=== PATIENT | male | born 1985 | race American Indian/Alaskan Native ===

== ENCOUNTER 2016-09-10 14:45 | Inpatient (IN) | payer MEDICAID ==
[2016-09-10] MEDS ORDERED: D5NS 0.2% 1,000 ML IV ONE (15:27)
[2016-09-10] MEDS ORDERED: ZOFRAN IV ONE (22:48)
[2016-09-10] MEDS ORDERED: TORADOL IV ONE (22:48)
[2016-09-10] MEDS ORDERED: DILAUDID IV ONE ×2 (22:48→23:35)
[2016-09-10] MEDS ORDERED: BENADRYL PO ONE (22:48)
--- NOTE | 2016-09-10 22:49 | Emergency Department Report ---
ED General Adult HPI - General Chief complaint: Sickle Cell Crisis Stated complaint: SICKLE CELL CRISIS Time Seen by Provider: 09/10/16 22:40 Source: patient, RN notes reviewed Mode of arrival: Ambulatory Limitations: No Limitations - History of Present Illness Initial comments: This is a 31-year-old male. I have evaluated him in the past. Has a past medical history of sickle cell disease, cardiomyopathy, ejection fraction of 45- 50%. Patient presents to the ER complaining of sickle cell pain. Pain is in his back , arms, and bilateral chest wall. Also in his anterior thighs. It is achy and sharp. There is no severe chest pain or shortness of breath. No cough. No mucous production. No testicular pain. No abdominal pain. No irritative or obstructive urinary symptoms. Reports home medications are not helping. Patient reports this feels somewhat to prior episodes of sickle cell pain, only more intense. -: Gradual Location: back, left, right, upper extremity, lower extremity Quality: aching Consistency: constant Improves with: medication, rest Worsens with: movement Associated Symptoms: loss of appetite, malaise, weakness - Related Data Home Medications Medication Instructions Recorded Confirmed Last Taken Folic Acid [Folvite] 1 mg PO QDAY 03/24/15 03/27/16 03/27/16 Morphine ER [Ms Contin ER] 30 mg PO Q12H 03/24/15 03/27/16 03/27/16 Previous Rx's Medication Instructions Recorded Last Taken Type oxyCODONE [Roxicodone TAB] 10 mg PO Q6HR PRN #30 tablet 03/30/15 2 Days Ago Rx Ketorolac [Toradol] 10 mg PO Q6H PRN #20 tablet 07/01/16 Unknown Rx oxyCODONE [Roxicodone] 5 mg PO Q6HR PRN #15 tablet 07/01/16 Unknown Rx Allergies Allergy/AdvReac Type Severity Reaction Status Date / Time ceftriaxone sodium Allergy Unknown Verified 10/25/15 10:46 [From Rocephin] meperidine HCl [From Demerol] Allergy Unknown Verified 10/25/15 10:46 ED Review of Systems ROS: Stated complaint: SICKLE CELL CRISIS Other details as noted in HPI Constitutional: malaise, weakness Eyes: denies: vision change ENT: denies: epistaxis Respiratory: denies: cough Cardiovascular: denies: chest pain Gastrointestinal: denies: abdominal pain Genitourinary: denies: urgency Musculoskeletal: back pain, arthralgia, myalgia Skin: as per HPI Neurological: weakness ED Past Medical Hx - Past Medical History Hx Sickle Cell Disease: Yes - Surgical History Hx Cholecystectomy: Yes Additional Surgical History: spleen removed, hernia repair - Social History Smoking Status: Never Smoker Substance Use Type: None - Medications Home Medications: Home Medications Medication Instructions Recorded Confirmed Last Taken Type Folic Acid [Folvite] 1 mg PO QDAY 03/24/15 03/27/16 03/27/16 History Morphine ER [Ms Contin ER] 30 mg PO Q12H 03/24/15 03/27/16 03/27/16 History oxyCODONE [Roxicodone TAB] 10 mg PO Q6HR PRN #30 tablet 03/30/15 03/27/16 2 Days Ago Rx Ketorolac [Toradol] 10 mg PO Q6H PRN #20 tablet 07/01/16 Unknown Rx oxyCODONE [Roxicodone] 5 mg PO Q6HR PRN #15 tablet 07/01/16 Unknown Rx ED Physical Exam - General Limitations: No Limitations General appearance: alert, in no apparent distress - Head Head exam: Present: atraumatic, normocephalic - Eye Eye exam: Present: normal appearance, EOMI. Absent: nystagmus - ENT ENT exam: Present: normal exam, normal orophraynx, mucous membranes moist, normal external ear exam - Neck Neck exam: Present: normal inspection, full ROM. Absent: tenderness, meningismus - Respiratory Respiratory exam: Present: normal lung sounds bilaterally, chest wall tenderness , other (right anterior thoracic wall port is noted. No redness, pus, streaking , cellulitis or crepitus.). Absent: respiratory distress, wheezes, rales, rhonchi, stridor - Cardiovascular Cardiovascular Exam: Present: regular rate, normal rhythm, normal heart sounds. Absent: bradycardia, tachycardia, irregular rhythm, systolic murmur, diastolic murmur, rubs, gallop - GI/Abdominal GI/Abdominal exam: Present: soft, normal bowel sounds. Absent: distended, tenderness, guarding, rebound, rigid, pulsatile mass - Rectal Rectal exam: Present: deferred - Extremities Exam Extremities exam: Present: normal inspection, full ROM, tenderness, normal capillary refill, other (there is mild lumbar tenderness upper and lower extremities. The compartments are soft. 2+ pulses are noted). Absent: pedal edema, joint swelling, calf tenderness - Back Exam Back exam: Present: normal inspection, full ROM, paraspinal tenderness. Absent : tenderness, CVA tenderness (R) - Neurological Exam Neurological exam: Present: alert, oriented X3, normal gait, other (Extraocular movements intact. Tongue midline. No facial droop. Facial sensation intact to light touch in the V1, V2, V3 distribution bilaterally. 5 and 5 strength in 4 extremities.. Sensation is intact to light touch in 4 extremities.). Absent : motor sensory deficit - Psychiatric Psychiatric exam: Present: normal affect, normal mood - Skin Skin exam: Present: warm, dry, intact, normal color. Absent: rash ED Course Vital Signs 09/10/16 09/11/16 15:25 01:00 Temperature 98.6 F 98.1 F Pulse Rate 65 Pulse Rate [ 78 Right Brachial] Respiratory 16 18 Rate Blood Pressure 113/63 Blood Pressure 127/59 [Right Arm] O2 Sat by Pulse 98 98 Oximetry - Reevaluation(s) Reevaluation #1: 09/10/16 23:09 Differential diagnosis: Sickle cell crisis acute, chronic pain Assessment and plan: 31-year-old male with prior visits for sickle cell crisis whom I have evaluated in the past, with probable acute sickle crisis. Clinically appears well, exam nonfocal. I don't believe he requires laboratory studies immediately at this time. His pain will be treated aggressively. Reevaluation #2: 09/11/16 00:34 labs show anemia and elevated retic count. prbc transfusion d/w Dr Abebe, who will consult d/w Dr Leone who accepts patient to her service 09/11/16 00:35 ED Medical Decision Making - Lab Data Result diagrams: 09/10/16 Unknown 09/10/16 Unknown Vital Signs 09/10/16 15:25 Temperature 98.6 F Pulse Rate 65 Respiratory 16 Rate Blood Pressure 113/63 O2 Sat by Pulse 98 Oximetry - Radiology Data Radiology results: image reviewed interpreted by me: X-ray chest unremarkable. Right-sided thoracic wall port is noted. Critical Care Time: Yes Critical care time in (mins) excluding proc time.: 35 Critical care attestation.: If time is entered above; I have spent that time in minutes in the direct care of this critically ill patient, excluding procedure time. Critical Care Time: Critical care time includes multiple bedside evaluations, interpretation of laboratory studies, radiology studies, time spent managing a patient with sickle cell anemia with profound anemia requiring packed red blood cell transfusion, consultation with hematology, consultation with hospital medicine. This excludes procedure time. ED Disposition Clinical Impression: Sickle cell anemia, Symptomatic anemia Disposition: OP ADMITTED IP TO THIS HOSP Is pt being admited?: Yes Condition: Good
[2016-09-11 00:27] LABS: Mean Corpuscular HGB Conc 35 % (32-34); Mean Corpuscular Hemoglobin 37 pg (28-32); Mean Corpuscular Volume 105 fl (84-94); Platelet Count 231 K/mm3 (140-440); Red Blood Count 1.77 M/mm3 (3.65-5.03); Reticulocyte % 10.39 % (0.78-2.58); White Blood Count 9.2 K/mm3 (4.5-11.0)
[2016-09-11 00:28] LABS: Red Cell Distribution Width 32.7 % (13.2-15.2)
[2016-09-11 00:29] LABS: Hematocrit 18.6 % (35.5-45.6); Hemoglobin 6.5 gm/dl (11.8-15.2)
[2016-09-11] MEDS ORDERED: DILAUDID IV ONE (00:32)
[2016-09-11] MEDS ORDERED: NACL 0.9% 500 ML 500 ML IV ONE ×2 (00:32→02:48)
[2016-09-11 00:46] LABS: Anion Gap 20 mmol/L; Blood Urea Nitrogen 15 mg/dL (9-20); Carbon Dioxide 22 mmol/L (22-30); Chloride 104.5 mmol/L (98-107); Glucose 102 mg/dL (75-100); Potassium 4.2 mmol/L (3.6-5.0); Sodium 142 mmol/L (137-145)
[2016-09-11] MEDS ORDERED: DILAUDID ONE (00:46)
[2016-09-11 01:15] LABS: Bacteria,Urine 1+ /HPF (Negative); Bilirubin,Urine NEG (Negative); Blood,Urine MOD (Negative); Ketones,Urine NEG (Negative); Leukocyte Esterase,Urine NEG (Negative); Nitrite,Urine NEG (Negative); Urobilinogen,Urine < 2.0 mg/dL (<2.0)
[2016-09-11 01:30] LABS: Lactate Dehydrogenase 621 units/L (91-180)
--- NOTE | 2016-09-11 01:39 | History and Physical Report ---
History of Present Illness Date of examination: 09/11/16 Date of admission: 09/11/16 00:43 Chief complaint: Generalized body ache History of present illness: This is a 31-year-old male with a past medical history of sickle cell disease, cardiomyopathy, ejection fraction of 45-50%. presents to the ER complaining of generalized pain. Pain mainly located in his back, arms, bilateral chest wall, and also in his anterior thighs. Pain describes as achy and sharp. No cough. No mucous production. No testicular pain. No abdominal pain. No irritative or obstructive urinary symptoms. Reports home medications are not helping. In the ER hb noted to be 6.5. Patient reports this feels somewhat to prior episodes of sickle cell pain, only more intense. Past medical History: h/o SCD, CHF with EF 45% Past surgical History: s/p spleenectomy, hernia surgery, removal of gall stones. Social History: Lives with family, denies any smoking, drinking and elicit drug abuse. Family History: Significant for HTN in [place] Review of System: Constitutional: no fever, no chills, no weight loss Ears, eyes, nose, mouth and throat: no nasal congestion, no nasal discharge, no sinus pressure, no vision change, no red eye. Neck: No neck pain or rigidity. Cardiovascular: + chest pain, no orthopnea, + palpitations, no leg swelling Respiratory: + shortness of breath, no cough, no congestion, no wheezing Gastrointestinal: no abdominal pain, no nausea, no vomiting Genitourinary : no dysuria, no hematuria Musculoskeletal: no joint swelling, + muscle ache Integumentary: no rash, no pruritis Neurological: no parathesias, no numbness, no tingling Endocrine: no cold or heat intolerance, no polyuria or polydipsia Hematologic/Lymphatic: no easy bruising, no easy bleeding, no gland swelling Allergic/Immunologic: no urticaria, no angioedema. Medications and Allergies Allergies Allergy/AdvReac Type Severity Reaction Status Date / Time ceftriaxone sodium Allergy Unknown Verified 10/25/15 10:46 [From Rocephin] meperidine HCl [From Demerol] Allergy Unknown Verified 10/25/15 10:46 Home Medications Medication Instructions Recorded Confirmed Last Taken Type Folic Acid [Folvite] 1 mg PO QDAY 03/24/15 03/27/16 03/27/16 History Morphine ER [Ms Contin ER] 30 mg PO Q12H 03/24/15 03/27/16 03/27/16 History oxyCODONE [Roxicodone TAB] 10 mg PO Q6HR PRN #30 tablet 03/30/15 03/27/16 2 Days Ago Rx Ketorolac [Toradol] 10 mg PO Q6H PRN #20 tablet 07/01/16 Unknown Rx oxyCODONE [Roxicodone] 5 mg PO Q6HR PRN #15 tablet 07/01/16 Unknown Rx Exam - Physical Exam Narrative exam: GENERAL: This is well-developed AAM lying on bed appeared to be in no discomfort. HEENT: Normocephalic. Atraumatic. Extraocular motions are intact. No conjunctival congestion, + icterus. Patient has moist mucous membranes. External auditory canal and nares patent bilaterally. NECK: Supple. Trachea midline. No JVD, thyromagaly or lymphadenopathy. CHEST/LUNGS: Clear to auscultated bilaterally. There is no respiratory distress noted, breathing nonlabored. No wheezes crackles or rhonchi. HEART/CARDIOVASCULAR: Regular in rate and rhythm. PMI at the apex. There is no gallop rub or murmur. ABDOMEN: Abdomen is soft, nontender. Patient has normal bowel sounds. There is no abdominal distention. No organomagaly or rigidity. SKIN: There is no rash, no erythrema. There is no diaphoresis. Warm and dry. NEUROLOGY: The patient is awake, alert, and oriented. The patient is cooperative. The patient has normal speech. No focal motor deficit. MUSCULOSKELETAL: No joint effusion. No muscle wasting. EXTRIMITY: No edema, cyanosis or clubbing. PSYCH: No depression or anxiety noted. Cooperative. - Constitutional Vitals: Temp Pulse Resp BP Pulse Ox 98.6 F 65 16 113/63 98 09/10/16 15:25 09/10/16 15:25 09/10/16 15:25 09/10/16 15:25 09/10/16 15:25 Results - Labs CBC & Chem 7: 09/10/16 Unknown 09/10/16 Unknown Labs: Laboratory Last Values WBC 9.2 K/mm3 (4.5-11.0) 09/10/16 Unknown RBC 1.77 M/mm3 (3.65-5.03) L 09/10/16 Unknown Hgb 6.5 gm/dl (11.8-15.2) L 09/10/16 Unknown Hct 18.6 % (35.5-45.6) L* 09/10/16 Unknown MCV 105 fl (84-94) H D 09/10/16 Unknown MCH 37 pg (28-32) H 09/10/16 Unknown MCHC 35 % (32-34) H 09/10/16 Unknown RDW 32.7 % (13.2-15.2) H 09/10/16 Unknown Plt Count 231 K/mm3 (140-440) 09/10/16 Unknown Percent Retic 10.39 % (0.78-2.58) H 09/10/16 Unknown Sodium 142 mmol/L (137-145) 09/10/16 Unknown Potassium 4.2 mmol/L (3.6-5.0) 09/10/16 Unknown Chloride 104.5 mmol/L (98-107) 09/10/16 Unknown Carbon Dioxide 22 mmol/L (22-30) 09/10/16 Unknown Anion Gap 20 mmol/L 09/10/16 Unknown BUN 15 mg/dL (9-20) 09/10/16 Unknown Creatinine 0.4 mg/dL (0.8-1.5) L 09/10/16 Unknown Estimated GFR > 60 ml/min 09/10/16 Unknown BUN/Creatinine Ratio 37.50 % 09/10/16 Unknown Glucose 102 mg/dL (75-100) H 09/10/16 Unknown Calcium 9.0 mg/dL (8.4-10.2) 09/10/16 Unknown Lactate Dehydrogenase 621 units/L (91-180) H 09/10/16 Unknown Urine Color Yellow (Yellow) 09/11/16 01:05 Urine Turbidity Clear (Clear) 09/11/16 01:05 Urine pH 5.0 (5.0-7.0) 09/11/16 01:05 Ur Specific [place] 1.010 (1.003-1.030) 09/11/16 01:05 Urine Protein 30 mg/dl mg/dL (Negative) 09/11/16 01:05 Urine Glucose (UA) Neg mg/dL (Negative) 09/11/16 01:05 Urine Ketones Neg mg/dL (Negative) 09/11/16 01:05 Urine Blood Mod (Negative) 09/11/16 01:05 Urine Nitrite Neg (Negative) 09/11/16 01:05 Urine Bilirubin Neg (Negative) 09/11/16 01:05 Urine Urobilinogen < 2.0 mg/dL (<2.0) 09/11/16 01:05 Ur Leukocyte Esterase Neg (Negative) 09/11/16 01:05 Urine WBC (Auto) 1.0 /HPF (0.0-6.0) 09/11/16 01:05 Urine RBC (Auto) 2.0 /HPF (0.0-6.0) 09/11/16 01:05 Urine Bacteria (Auto) 1+ /HPF (Negative) 09/11/16 01:05 Blood Type O POSITIVE 09/11/16 00:44 Crossmatch See Detail 09/11/16 00:44 - Imaging and Cardiology Chest x-ray: report reviewed (no acute change) Assessment and Plan Assessment and plan: Sickle cell disease with acute crisis Anemia due to sickle cell disease h/o CHF with EF 45%, compensated at this time Plan: Admit to medicine Supportive care with pain management Aggressive IV fluid hydration GI and DVT prophylaxis Serial monitoring of H&H transfuse 1 unit PRBC consult hematology It took me about 45 minutes for initial care of this patient including history and physical, reviewing initial lab results and ER documents, placing admission orders, bedside counseling and coordination of care. Advance Directives: Yes VTE prophylaxis?: Chemical Plan of care discussed with patient/family: Yes
[2016-09-11] MEDS: NACL 0.9% 1000 ML 1,000 ML IV SCH ×2 (03:51→11:56)
[2016-09-11] MEDS: DILAUDID IV PRN ×5 (03:52→21:12)
[2016-09-11] MEDS: BENADRYL IV PRN ×4 (03:52→22:10)
--- NOTE | 2016-09-11 08:58 | Admit Criteria Form ---
Admission Criteria Documentation: ANEMIA, IRON DEFICIENCY OR UNSPECIFIED Clinical Indications for Inpatient Care (Place 'X' for any and all applicable criteria): Admission is indicated for ANY ONE of the following(1)(2)(3)(4)(5)(6)(7): [X] I. Inpatient admission required rather than observation care (Also use Anemia, Iron Deficiency or Unspecified: Observation Care guideline as appropriate) because of ANY ONE of the following: [] a) Hemodynamic instability that is severe or persistent [] b) Active bleeding that cannot be rapidly controlled [X] c) CVS symptoms (i.e., dyspnea, chest pain, heart failure) that are severe or persistent [] d) Neurologic symptoms (i.e., cognitive impairment, recurrent syncope or near syncope) that are severe or persistent [] e) Cardiac arrhythmias of immediate concern [] f) Acute peripheral ischemia (e.g., pulseless, cool, mottled, or cyanotic extremity) [] g) High-risk low platelet count [] h) Acute renal failure [] i) Ongoing transfusion for blood loss (greater than 2 units) [] j) IV fluid to replace significant ongoing (eg, >24 hours) losses (> 3 L/m2 per day) [] k) Pulmonary artery catheter monitoring [] l) Supplemental oxygen or respiratory treatments for over 24 hours that are performable only in acute inpatient setting [] m) Immediate inpatient surgery [] n) Other condition, treatment or monitoring requiring inpatient admission [] II Active massive hemorrhage [] III. Active hemolysis with rapidly progressive anemia [A](6) Extended stay beyond goal length of stay may be needed for (17)(18) []a) Diagnosed cause of anemia requiring longer hospitalization (eg, active GI bleeding, immune hemolysis requiring electrophoresis, complications of malignancy requiring acute care []b) Continued emergent anemia indicators (23) []c) Transfusion reactions []d) Associated leukopenia or thrombocytopenia needing inpatient care []e) Active comorbidities (eg, renal failure, heart failure) The original [facility] Care Guidelines content created by [facility] Care Guidelines has been revised. The portions of the content which have been revised are identified through the use of italic text or in bold. [facility] Guidelines has neither reviewed nor approved the modified material. All other unmodified content is copyright [facility] Care Guidelines. Please see references footnoted in the original [facility] edition 2016 Admission Criteria Met: Yes
--- NOTE | 2016-09-11 09:58 | XRay Report ---
AP CHEST: HISTORY: Sickle cell crisis, chest pain. FINDINGS: [id number] cardiomegaly and central pulmonary venous congestion are stable since 07/01/16. The lungs are clear. There is no evidence for infiltrate, pleural effusion or pneumothorax. Right Mewvyy-X-Favg remains in good position. No acute bony abnormality appreciated. IMPRESSION: Borderline heart size and pulmonary venous structures. No acute change since 07/01/16.
--- NOTE | 2016-09-11 16:01 | Event Note ---
Date: 09/11/16 Patient seen and examined this morning reports mild improvement although still with pain rest and pain medication progressively increased. Discussed with nursing staff palpation on diet. We'll maintain pain medication control with this until evaluated by Dr. Goode. Labs reviewed in detail LDH and reticulocyte more than prior.
--- NOTE | 2016-09-11 23:29 | Consultation ---
History of Present Illness - Reason for Consult Consult date: 09/11/16 SCD/ANEMIA, Pain crisis. Requesting physician: SARAH POLANCO - History of Present Illness THank you for this consult, patient seen/examined, labs/record reviewed, case d/ w patient. patient presented o the ER, with crisis sxs, and admitted for sxs management. He has missed appt in the office. He has since admission, received 2uprbc transfusion, and feels a bit better. Past History Past Medical History: anemia Social history: no significant social history Family history: no significant family history Medications and Allergies Allergies Allergy/AdvReac Type Severity Reaction Status Date / Time ceftriaxone sodium Allergy Unknown Verified 10/25/15 10:46 [From Rocephin] meperidine HCl [From Demerol] Allergy Unknown Verified 10/25/15 10:46 Home Medications Medication Instructions Recorded Confirmed Last Taken Type Folic Acid [Folvite] 1 mg PO QDAY 03/24/15 03/27/16 03/27/16 History Morphine ER [Ms Contin ER] 30 mg PO Q12H 03/24/15 03/27/16 03/27/16 History oxyCODONE [Roxicodone TAB] 10 mg PO Q6HR PRN #30 tablet 03/30/15 03/27/16 2 Days Ago Rx Ketorolac [Toradol] 10 mg PO Q6H PRN #20 tablet 07/01/16 Unknown Rx oxyCODONE [Roxicodone] 5 mg PO Q6HR PRN #15 tablet 07/01/16 Unknown Rx Active Meds: Active Medications Diphenhydramine HCl (Benadryl) 25 mg IV Q6H PRN PRN Reason: Itching Last Admin: 09/11/16 22:10 Dose: 25 mg Hydromorphone HCl (Dilaudid) 2 mg IV Q4H PRN PRN Reason: Pain , Severe (7-10) Last Admin: 09/11/16 21:12 Dose: 2 mg Sodium Chloride (Nacl 0.9% 1000 Ml) 1,000 mls @ 50 mls/hr IV DIRECT WAYNE Last Admin: 09/11/16 11:56 Dose: 50 mls/hr Review of Systems Constitutional: fatigue Musculoskeletal: low back pain Exam - Constitutional Vitals: Temp Pulse Resp BP Pulse Ox 98.7 F 62 18 132/63 100 09/11/16 21:00 09/11/16 21:00 09/11/16 21:00 09/11/16 21:00 09/11/16 21:00 General appearance: Present: mild distress, well-nourished - EENT Eyes: Present: PERRL ENT: hearing intact, clear oral mucosa - Neck Neck: Present: supple, normal ROM - Respiratory Respiratory effort: normal Respiratory: bilateral: CTA - Cardiovascular Heart Sounds: Present: S1 & S2. Absent: rub, click - Extremities Extremities: pulses symmetrical, No edema Peripheral Pulses: within normal limits - Abdominal General gastrointestinal: Present: soft, non-tender, non-distended, normal bowel sounds Male genitourinary: Present: deferred - Rectal Rectal Exam: deferred - Integumentary Integumentary: Present: clear, warm, dry - Musculoskeletal Musculoskeletal: gait normal, strength equal bilaterally - Psychiatric Psychiatric: appropriate mood/affect, intact judgment & insight - Neurologic Neurologic: CNII-XII intact, moves all extremities Results - Labs CBC & Chem 7: 09/10/16 Unknown 09/10/16 Unknown Labs: Abnormal lab results 09/11/16 Range/Units 00:44 Crossmatch See Detail Assessment and Plan - Patient Problems (1) Symptomatic anemia Current Visit: Yes Status: Acute Plan to address problem: better with transfusion of blood. (2) Sickle cell anemia Current Visit: Yes Status: Chronic Qualifiers: Sickle-cell associated disorders: S Plan to address problem: better since replacement transfusion. (3) Dehydration Current Visit: No Status: Acute Plan to address problem: Continue hydration. (4) Iron overload due to repeated red blood cell transfusions Current Visit: Yes Status: Acute Plan to address problem: Check iron level, and treat as necessary.
[2016-09-12] MEDS: DILAUDID IV PRN ×5 (01:17→23:40)
[2016-09-12] MEDS: BENADRYL IV PRN ×3 (06:15→23:39)
[2016-09-12 08:41] LABS: Iron 174 ug/dL (49-181)
[2016-09-12 09:13] LABS: Total Iron Binding Capacity 198 mcg/dL (250-450)
[2016-09-12] MEDS: NACL 0.9% 1000 ML 1,000 ML IV SCH (13:57)
[2016-09-12 14:23] LABS: Hematocrit 24.3 % (35.5-45.6); Hemoglobin 8.2 gm/dl (11.8-15.2)
--- NOTE | 2016-09-12 15:13 | Progress Note ---
Assessment and Plan Assessment and plan: This is a 31-year-old male with a past medical history of sickle cell disease, cardiomyopathy, ejection fraction of 45-50%. presents to the ER complaining of generalized pain. Pain mainly located in his back, arms, bilateral chest wall, and also in his anterior thighs. Pain describes as achy and sharp. No cough. No mucous production. No testicular pain. No abdominal pain. No irritative or obstructive urinary symptoms. Reports home medications are not helping. In the ER hb noted to be 6.5. Hospitalist Physical - Constitutional Vitals: Temp Pulse Resp BP Pulse Ox 98.1 F 62 20 140/88 100 09/12/16 08:45 09/12/16 08:45 09/12/16 08:45 09/12/16 08:45 09/12/16 08:45 General appearance: Present: mild distress, well-nourished Results - Labs CBC & Chem 7: 09/12/16 12:55 09/10/16 Unknown Labs: Laboratory Last Values WBC 9.2 K/mm3 (4.5-11.0) 09/10/16 Unknown RBC 1.77 M/mm3 (3.65-5.03) L 09/10/16 Unknown Hgb 8.2 gm/dl (11.8-15.2) L 09/12/16 12:55 Hct 24.3 % (35.5-45.6) L 09/12/16 12:55 MCV 105 fl (84-94) H D 09/10/16 Unknown MCH 37 pg (28-32) H 09/10/16 Unknown MCHC 35 % (32-34) H 09/10/16 Unknown RDW 32.7 % (13.2-15.2) H 09/10/16 Unknown Plt Count 231 K/mm3 (140-440) 09/10/16 Unknown Percent Retic 10.39 % (0.78-2.58) H 09/10/16 Unknown Sodium 142 mmol/L (137-145) 09/10/16 Unknown Potassium 4.2 mmol/L (3.6-5.0) 09/10/16 Unknown Chloride 104.5 mmol/L (98-107) 09/10/16 Unknown Carbon Dioxide 22 mmol/L (22-30) 09/10/16 Unknown Anion Gap 20 mmol/L 09/10/16 Unknown BUN 15 mg/dL (9-20) 09/10/16 Unknown Creatinine 0.4 mg/dL (0.8-1.5) L 09/10/16 Unknown Estimated GFR > 60 ml/min 09/10/16 Unknown BUN/Creatinine Ratio 37.50 % 09/10/16 Unknown Glucose 102 mg/dL (75-100) H 09/10/16 Unknown Calcium 9.0 mg/dL (8.4-10.2) 09/10/16 Unknown Iron 174 ug/dL (49-181) 09/12/16 07:20 TIBC 198 mcg/dL (250-450) L 09/12/16 07:20 Ferritin 5147.0 ng/mL (13.0-400.0) H 09/12/16 07:20 Lactate Dehydrogenase 621 units/L (91-180) H 09/10/16 Unknown Urine Color Yellow (Yellow) 09/11/16 01:05 Urine Turbidity Clear (Clear) 09/11/16 01:05 Urine pH 5.0 (5.0-7.0) 09/11/16 01:05 Ur Specific [place] 1.010 (1.003-1.030) 09/11/16 01:05 Urine Protein 30 mg/dl mg/dL (Negative) 09/11/16 01:05 Urine Glucose (UA) Neg mg/dL (Negative) 09/11/16 01:05 Urine Ketones Neg mg/dL (Negative) 09/11/16 01:05 Urine Blood Mod (Negative) 09/11/16 01:05 Urine Nitrite Neg (Negative) 09/11/16 01:05 Urine Bilirubin Neg (Negative) 09/11/16 01:05 Urine Urobilinogen < 2.0 mg/dL (<2.0) 09/11/16 01:05 Ur Leukocyte Esterase Neg (Negative) 09/11/16 01:05 Urine WBC (Auto) 1.0 /HPF (0.0-6.0) 09/11/16 01:05 Urine RBC (Auto) 2.0 /HPF (0.0-6.0) 09/11/16 01:05 Urine Bacteria (Auto) 1+ /HPF (Negative) 09/11/16 01:05 Blood Type O POSITIVE 09/11/16 00:44 Antibody Screen Negative 09/11/16 00:44 Crossmatch See Detail 09/11/16 00:44
--- NOTE | 2016-09-12 15:16 | Progress Note ---
Assessment and Plan Assessment and plan: This is a 31-year-old male with a past medical history of sickle cell disease, cardiomyopathy, ejection fraction of 45-50%. presents to the ER complaining of generalized pain. Pain mainly located in his back, arms, bilateral chest wall, and also in his anterior thighs. Pain describes as achy and sharp. No cough. No mucous production. No testicular pain. No abdominal pain. No irritative or obstructive urinary symptoms. Reports home medications are not helping. In the ER hb noted to be 6.5. 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 * h/o CHF with EF 45%, compensated at this time Plan: * Supportive care with pain management * Continue Aggressive IV fluid hydration * Status post 1 unit packed red blood cell transfusion with good response * Hematology input appreciated * GI and DVT prophylaxis * Serial monitoring of H&H * Pain control * Anticipate discharge in AM History Interval history: Follow-up sickle cell Patient seen and examined this morning in no acute distress, continues to have generalized body pain Denies any chest pain, nausea, vomiting, diarrhea No fever noted blood pressure controlled No adverse events reported to me by nursing staff Hospitalist Physical - Physical exam Narrative exam: VITAL SIGNS: Reviewed. GENERAL: The patient appeared well nourished and normally developed otherwise ill appearing. Vital signs as documented. HEAD: No signs of head trauma. EYES: Pupils are equal. Extraocular motions intact. EARS: Hearing grossly intact. MOUTH: Oropharynx is normal. NECK: No adenopathy, no JVD. CHEST: Chest with clear breath sounds bilaterally. No wheezes, rales, or rhonchi. CARDIAC: Regular rate and rhythm. S1 and S2, without murmurs, gallops, or rubs. VASCULAR: No Edema. Peripheral pulses normal and equal in all extremities. ABDOMEN: Soft, without detectable tenderness. No sign of distention. No rebound or guarding, and no masses palpated. Bowel Sounds normal. MUSCULOSKELETAL: Good range of motion of all major joints. Extremities without clubbing, cyanosis or edema. NEUROLOGIC EXAM: Alert and oriented x 3. No focal sensory or strength deficits. Speech normal. Follows commands. PSYCHIATRIC: Mood normal. SKIN: No rash or lesions. - Constitutional Vitals: Temp Pulse Resp BP Pulse Ox 98.1 F 62 20 140/88 100 09/12/16 08:45 09/12/16 08:45 09/12/16 08:45 09/12/16 08:45 09/12/16 08:45 General appearance: Present: mild distress, well-nourished Results - Labs CBC & Chem 7: 09/12/16 12:55 09/10/16 Unknown Labs: Laboratory Last Values WBC 9.2 K/mm3 (4.5-11.0) 09/10/16 Unknown RBC 1.77 M/mm3 (3.65-5.03) L 09/10/16 Unknown Hgb 8.2 gm/dl (11.8-15.2) L 09/12/16 12:55 Hct 24.3 % (35.5-45.6) L 09/12/16 12:55 MCV 105 fl (84-94) H D 09/10/16 Unknown MCH 37 pg (28-32) H 09/10/16 Unknown MCHC 35 % (32-34) H 09/10/16 Unknown RDW 32.7 % (13.2-15.2) H 09/10/16 Unknown Plt Count 231 K/mm3 (140-440) 09/10/16 Unknown Percent Retic 10.39 % (0.78-2.58) H 09/10/16 Unknown Sodium 142 mmol/L (137-145) 09/10/16 Unknown Potassium 4.2 mmol/L (3.6-5.0) 09/10/16 Unknown Chloride 104.5 mmol/L (98-107) 09/10/16 Unknown Carbon Dioxide 22 mmol/L (22-30) 09/10/16 Unknown Anion Gap 20 mmol/L 09/10/16 Unknown BUN 15 mg/dL (9-20) 09/10/16 Unknown Creatinine 0.4 mg/dL (0.8-1.5) L 09/10/16 Unknown Estimated GFR > 60 ml/min 09/10/16 Unknown BUN/Creatinine Ratio 37.50 % 09/10/16 Unknown Glucose 102 mg/dL (75-100) H 09/10/16 Unknown Calcium 9.0 mg/dL (8.4-10.2) 09/10/16 Unknown Iron 174 ug/dL (49-181) 09/12/16 07:20 TIBC 198 mcg/dL (250-450) L 09/12/16 07:20 Ferritin 5147.0 ng/mL (13.0-400.0) H 09/12/16 07:20 Lactate Dehydrogenase 621 units/L (91-180) H 09/10/16 Unknown Urine Color Yellow (Yellow) 09/11/16 01:05 Urine Turbidity Clear (Clear) 09/11/16 01:05 Urine pH 5.0 (5.0-7.0) 09/11/16 01:05 Ur Specific [place] 1.010 (1.003-1.030) 09/11/16 01:05 Urine Protein 30 mg/dl mg/dL (Negative) 09/11/16 01:05 Urine Glucose (UA) Neg mg/dL (Negative) 09/11/16 01:05 Urine Ketones Neg mg/dL (Negative) 09/11/16 01:05 Urine Blood Mod (Negative) 09/11/16 01:05 Urine Nitrite Neg (Negative) 09/11/16 01:05 Urine Bilirubin Neg (Negative) 09/11/16 01:05 Urine Urobilinogen < 2.0 mg/dL (<2.0) 09/11/16 01:05 Ur Leukocyte Esterase Neg (Negative) 09/11/16 01:05 Urine WBC (Auto) 1.0 /HPF (0.0-6.0) 09/11/16 01:05 Urine RBC (Auto) 2.0 /HPF (0.0-6.0) 09/11/16 01:05 Urine Bacteria (Auto) 1+ /HPF (Negative) 09/11/16 01:05 Blood Type O POSITIVE 09/11/16 00:44 Antibody Screen Negative 09/11/16 00:44 Crossmatch See Detail 09/11/16 00:44
--- NOTE | 2016-09-12 19:00 | Consultation ---
History of Present Illness - Reason for Consult Consult date: 09/12/16 - History of Present Illness Patient seen/examined, labs reviewed, case d/w patient. Past History Past Medical History: anemia Social history: no significant social history Family history: no significant family history Medications and Allergies Allergies Allergy/AdvReac Type Severity Reaction Status Date / Time ceftriaxone sodium Allergy Unknown Verified 10/25/15 10:46 [From Rocephin] meperidine HCl [From Demerol] Allergy Unknown Verified 10/25/15 10:46 Home Medications Medication Instructions Recorded Confirmed Last Taken Type Folic Acid [Folvite] 1 mg PO QDAY 03/24/15 03/27/16 03/27/16 History Morphine ER [Ms Contin ER] 30 mg PO Q12H 03/24/15 03/27/16 03/27/16 History oxyCODONE [Roxicodone TAB] 10 mg PO Q6HR PRN #30 tablet 03/30/15 03/27/16 2 Days Ago Rx Ketorolac [Toradol] 10 mg PO Q6H PRN #20 tablet 07/01/16 Unknown Rx oxyCODONE [Roxicodone] 5 mg PO Q6HR PRN #15 tablet 07/01/16 Unknown Rx Active Meds: Active Medications Diphenhydramine HCl (Benadryl) 25 mg IV Q6H PRN PRN Reason: Itching Last Admin: 09/12/16 06:15 Dose: 25 mg Hydromorphone HCl (Dilaudid) 2 mg IV Q4H PRN PRN Reason: Pain , Severe (7-10) Last Admin: 09/12/16 10:52 Dose: 2 mg Sodium Chloride (Nacl 0.9% 1000 Ml) 1,000 mls @ 50 mls/hr IV DIRECT WAYNE Last Admin: 09/12/16 13:57 Dose: 50 mls/hr Review of Systems Constitutional: chronic pain Musculoskeletal: low back pain Exam - Constitutional Vitals: Temp Pulse Resp BP Pulse Ox 98.4 F 61 20 100/80 99 09/12/16 16:00 09/12/16 16:00 09/12/16 16:00 09/12/16 16:00 09/12/16 16:00 General appearance: Present: mild distress, well-nourished - EENT Eyes: Present: PERRL ENT: hearing intact, clear oral mucosa - Neck Neck: Present: supple, normal ROM - Respiratory Respiratory effort: normal Respiratory: bilateral: CTA - Cardiovascular Heart Sounds: Present: S1 & S2. Absent: rub, click - Extremities Extremities: pulses symmetrical, No edema Peripheral Pulses: within normal limits - Abdominal General gastrointestinal: Present: soft, non-tender, non-distended, normal bowel sounds Male genitourinary: Present: deferred - Rectal Rectal Exam: deferred - Integumentary Integumentary: Present: clear, warm, dry - Musculoskeletal Musculoskeletal: gait normal, strength equal bilaterally - Psychiatric Psychiatric: appropriate mood/affect, intact judgment & insight - Neurologic Neurologic: CNII-XII intact, moves all extremities Results - Labs CBC & Chem 7: 09/12/16 12:55 09/10/16 Unknown Labs: Abnormal lab results 09/11/16 09/12/16 09/12/16 Range/Units 00:44 07:20 07:20 Hgb (11.8-15.2) gm/dl Hct (35.5-45.6) % TIBC 198 L (250-450) mcg/dL Ferritin 5147.0 H (13.0-400.0) ng/mL Crossmatch See Detail 09/12/16 Range/Units 12:55 Hgb 8.2 L (11.8-15.2) gm/dl Hct 24.3 L (35.5-45.6) % TIBC (250-450) mcg/dL Ferritin (13.0-400.0) ng/mL Crossmatch Assessment and Plan - Patient Problems (1) Symptomatic anemia Current Visit: Yes Status: Acute Plan to address problem: better with transfusion of blood. (2) Sickle cell anemia Current Visit: Yes Status: Chronic Qualifiers: Sickle-cell associated disorders: S Plan to address problem: better since replacement transfusion. (3) Dehydration Current Visit: No Status: Acute Plan to address problem: Continue hydration. (4) Iron overload due to repeated red blood cell transfusions Current Visit: Yes Status: Acute Plan to address problem: Check iron level, and treat as necessary. He will need iron chelation.
[2016-09-12] MEDS ORDERED: [UNRECOGNIZED DRUG - OTHER] IV ONE (20:00)
[2016-09-12] MEDS ORDERED: NACL 0.9% IV ONE (20:00)
[2016-09-13] MEDS: DILAUDID IV PRN ×4 (04:27→20:46)
[2016-09-13] MEDS: BENADRYL IV PRN ×2 (04:28→18:38)
[2016-09-13] MEDS ORDERED: [UNRECOGNIZED DRUG - OTHER] IV SCH (10:00)
--- NOTE | 2016-09-13 12:34 | Progress Note ---
Assessment and Plan Assessment and plan: This is a 31-year-old male with a past medical history of sickle cell disease, cardiomyopathy, ejection fraction of 45-50%. presents to the ER complaining of generalized pain. Pain mainly located in his back, arms, bilateral chest wall, and also in his anterior thighs. Pain describes as achy and sharp. No cough. No mucous production. No testicular pain. No abdominal pain. No irritative or obstructive urinary symptoms. Reports home medications are not helping. In the ER hb noted to be 6.5. 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 * h/o CHF with EF 45%, compensated at this time Plan: * Supportive care with pain management * Continue chelation therapy * Continue Aggressive IV fluid hydration * Status post 1 unit packed red blood cell transfusion with good response * Hematology input appreciated * GI and DVT prophylaxis * Serial monitoring of H&H * Pain control * Anticipate discharge in AM History Interval history: Follow-up sickle cell Patient seen and examined this morning in no acute distress, continues to have generalized body pain Denies any chest pain, nausea, vomiting, diarrhea No fever noted blood pressure controlled No adverse events reported to me by nursing staff Hospitalist Physical - Physical exam Narrative exam: VITAL SIGNS: Reviewed. GENERAL: The patient appeared well nourished and normally developed otherwise ill appearing. Vital signs as documented. HEAD: No signs of head trauma. EYES: Pupils are equal. Extraocular motions intact. EARS: Hearing grossly intact. MOUTH: Oropharynx is normal. NECK: No adenopathy, no JVD. CHEST: Chest with clear breath sounds bilaterally. No wheezes, rales, or rhonchi. CARDIAC: Regular rate and rhythm. S1 and S2, without murmurs, gallops, or rubs. VASCULAR: No Edema. Peripheral pulses normal and equal in all extremities. ABDOMEN: Soft, without detectable tenderness. No sign of distention. No rebound or guarding, and no masses palpated. Bowel Sounds normal. MUSCULOSKELETAL: Good range of motion of all major joints. Extremities without clubbing, cyanosis or edema. NEUROLOGIC EXAM: Alert and oriented x 3. No focal sensory or strength deficits. Speech normal. Follows commands. PSYCHIATRIC: Mood normal. SKIN: No rash or lesions. - Constitutional Vitals: Temp Pulse Resp BP Pulse Ox 97.9 F 59 L 18 112/71 100 09/13/16 08:37 09/13/16 08:37 09/13/16 08:37 09/13/16 08:37 09/13/16 08:37 General appearance: Present: mild distress, well-nourished Results - Labs CBC & Chem 7: 09/12/16 12:55 09/10/16 Unknown Labs: Laboratory Last Values WBC 9.2 K/mm3 (4.5-11.0) 09/10/16 Unknown RBC 1.77 M/mm3 (3.65-5.03) L 09/10/16 Unknown Hgb 8.2 gm/dl (11.8-15.2) L 09/12/16 12:55 Hct 24.3 % (35.5-45.6) L 09/12/16 12:55 MCV 105 fl (84-94) H D 09/10/16 Unknown MCH 37 pg (28-32) H 09/10/16 Unknown MCHC 35 % (32-34) H 09/10/16 Unknown RDW 32.7 % (13.2-15.2) H 09/10/16 Unknown Plt Count 231 K/mm3 (140-440) 09/10/16 Unknown Percent Retic 10.39 % (0.78-2.58) H 09/10/16 Unknown Sodium 142 mmol/L (137-145) 09/10/16 Unknown Potassium 4.2 mmol/L (3.6-5.0) 09/10/16 Unknown Chloride 104.5 mmol/L (98-107) 09/10/16 Unknown Carbon Dioxide 22 mmol/L (22-30) 09/10/16 Unknown Anion Gap 20 mmol/L 09/10/16 Unknown BUN 15 mg/dL (9-20) 09/10/16 Unknown Creatinine 0.4 mg/dL (0.8-1.5) L 09/10/16 Unknown Estimated GFR > 60 ml/min 09/10/16 Unknown BUN/Creatinine Ratio 37.50 % 09/10/16 Unknown Glucose 102 mg/dL (75-100) H 09/10/16 Unknown Calcium 9.0 mg/dL (8.4-10.2) 09/10/16 Unknown Iron 174 ug/dL (49-181) 09/12/16 07:20 TIBC 198 mcg/dL (250-450) L 09/12/16 07:20 Ferritin 5147.0 ng/mL (13.0-400.0) H 09/12/16 07:20 Lactate Dehydrogenase 621 units/L (91-180) H 09/10/16 Unknown Urine Color Yellow (Yellow) 09/11/16 01:05 Urine Turbidity Clear (Clear) 09/11/16 01:05 Urine pH 5.0 (5.0-7.0) 09/11/16 01:05 Ur Specific [place] 1.010 (1.003-1.030) 09/11/16 01:05 Urine Protein 30 mg/dl mg/dL (Negative) 09/11/16 01:05 Urine Glucose (UA) Neg mg/dL (Negative) 09/11/16 01:05 Urine Ketones Neg mg/dL (Negative) 09/11/16 01:05 Urine Blood Mod (Negative) 09/11/16 01:05 Urine Nitrite Neg (Negative) 09/11/16 01:05 Urine Bilirubin Neg (Negative) 09/11/16 01:05 Urine Urobilinogen < 2.0 mg/dL (<2.0) 09/11/16 01:05 Ur Leukocyte Esterase Neg (Negative) 09/11/16 01:05 Urine WBC (Auto) 1.0 /HPF (0.0-6.0) 09/11/16 01:05 Urine RBC (Auto) 2.0 /HPF (0.0-6.0) 09/11/16 01:05 Urine Bacteria (Auto) 1+ /HPF (Negative) 09/11/16 01:05 Blood Type O POSITIVE 09/11/16 00:44 Antibody Screen Negative 09/11/16 00:44 Crossmatch See Detail 09/11/16 00:44
--- NOTE | 2016-09-13 12:37 | Discharge Summary ---
Providers - Providers Date of Admission: 09/11/16 00:43 Date of discharge: 09/14/16 Attending physician: SARAH POLANCO MD Primary care physician: DANIEL DE JESUS Hospitalization Reason for admission: sickle cell crisis Condition: Stable Disposition: DISCHARGED TO HOME OR SELFCARE Time spent for discharge: 35 mins Core Measure Documentation - Palliative Care Palliative Care/ Comfort Measures: Not Applicable - Core Measures Any of the following diagnoses?: none - VTE Discharge Requirements Deep Vein Thrombosis/Pulmonary Embolism Present on Admission: No Exam - Physical Exam Narrative exam: VITAL SIGNS: Reviewed. GENERAL: The patient appeared well nourished and normally developed otherwise ill appearing. Vital signs as documented. HEAD: No signs of head trauma. EYES: Pupils are equal. Extraocular motions intact. EARS: Hearing grossly intact. MOUTH: Oropharynx is normal. NECK: No adenopathy, no JVD. CHEST: Chest with clear breath sounds bilaterally. No wheezes, rales, or rhonchi. CARDIAC: Regular rate and rhythm. S1 and S2, without murmurs, gallops, or rubs. VASCULAR: No Edema. Peripheral pulses normal and equal in all extremities. ABDOMEN: Soft, without detectable tenderness. No sign of distention. No rebound or guarding, and no masses palpated. Bowel Sounds normal. MUSCULOSKELETAL: Good range of motion of all major joints. Extremities without clubbing, cyanosis or edema. NEUROLOGIC EXAM: Alert and oriented x 3. No focal sensory or strength deficits. Speech normal. Follows commands. PSYCHIATRIC: Mood normal. SKIN: No rash or lesions. - Constitutional Vitals: Temp Pulse Resp BP Pulse Ox 97.9 F 59 L 18 112/71 100 09/13/16 08:37 09/13/16 08:37 09/13/16 08:37 09/13/16 08:37 09/13/16 08:37 Plan Activity: advance as tolerated Diet: regular Additional Instructions: Per Dr De Jesus. Patient to follow up in the office for pain medication. Needs to continue his current pain meds. Follow up with: DANIEL DE JESUS DO [Primary Care Provider] - 3-5 Days
--- NOTE | 2016-09-13 21:04 | Consultation ---
History of Present Illness - Reason for Consult Consult date: 09/13/16 - History of Present Illness patient seen/examined, labs reviewed, case d/w patient. He has only recieved one dose of desferal tx. Past History Past Medical History: anemia Social history: no significant social history Family history: no significant family history Medications and Allergies Allergies Allergy/AdvReac Type Severity Reaction Status Date / Time ceftriaxone sodium Allergy Unknown Verified 10/25/15 10:46 [From Rocephin] meperidine HCl [From Demerol] Allergy Unknown Verified 10/25/15 10:46 Home Medications Medication Instructions Recorded Confirmed Last Taken Type Folic Acid [Folvite] 1 mg PO QDAY 03/24/15 03/27/16 03/27/16 History Ketorolac [Toradol] 10 mg PO Q6H PRN #20 tablet 09/13/16 Unknown Rx Morphine ER [Ms Contin ER] 30 mg PO Q12H #30 tablet 09/13/16 Unknown Rx oxyCODONE [Roxicodone TAB] 5 mg PO Q6HR PRN #15 tablet 09/13/16 Unknown Rx Active Meds: Active Medications Diphenhydramine HCl (Benadryl) 25 mg IV Q6H PRN PRN Reason: Itching Last Admin: 09/13/16 18:38 Dose: 25 mg Hydromorphone HCl (Dilaudid) 2 mg IV Q4H PRN PRN Reason: Pain , Severe (7-10) Last Admin: 09/13/16 20:46 Dose: 2 mg Sodium Chloride (Nacl 0.9% 1000 Ml) 1,000 mls @ 50 mls/hr IV DIRECT WAYNE Last Admin: 09/12/16 13:57 Dose: 50 mls/hr Review of Systems Constitutional: chronic pain Musculoskeletal: low back pain Exam - Constitutional Vitals: Temp Pulse Resp BP Pulse Ox 98.4 F 68 18 125/69 100 09/13/16 16:00 09/13/16 16:00 09/13/16 20:46 09/13/16 16:00 09/13/16 08:37 General appearance: Present: mild distress, well-nourished - EENT Eyes: Present: PERRL ENT: hearing intact, clear oral mucosa - Neck Neck: Present: supple, normal ROM - Respiratory Respiratory effort: normal Respiratory: bilateral: CTA - Cardiovascular Heart Sounds: Present: S1 & S2. Absent: rub, click - Extremities Extremities: pulses symmetrical, No edema Peripheral Pulses: within normal limits - Abdominal General gastrointestinal: Present: soft, non-tender, non-distended, normal bowel sounds Male genitourinary: Present: deferred - Rectal Rectal Exam: deferred - Integumentary Integumentary: Present: clear, warm, dry - Musculoskeletal Musculoskeletal: gait normal, strength equal bilaterally - Psychiatric Psychiatric: appropriate mood/affect, intact judgment & insight - Neurologic Neurologic: CNII-XII intact, moves all extremities Results - Labs CBC & Chem 7: 09/12/16 12:55 09/10/16 Unknown Assessment and Plan - Patient Problems (1) Symptomatic anemia Current Visit: Yes Status: Acute Plan to address problem: better with transfusion of blood. (2) Sickle cell anemia Current Visit: Yes Status: Chronic Qualifiers: Sickle-cell associated disorders: S Plan to address problem: better since replacement transfusion. (3) Dehydration Current Visit: No Status: Acute Plan to address problem: Continue hydration. (4) Iron overload due to repeated red blood cell transfusions Current Visit: Yes Status: Acute Plan to address problem: Check iron level, and treat as necessary. He will need iron chelation. He will get one more dose tonight, can still be d/c home tomorrow.
[2016-09-13] MEDS ORDERED: [UNRECOGNIZED DRUG - OTHER] IV ONE (22:00)
[2016-09-13] MEDS ORDERED: NACL 0.9% IV ONE (22:00)
[2016-09-14] MEDS: DILAUDID IV PRN ×4 (00:47→20:08)
[2016-09-14] MEDS: BENADRYL IV PRN ×3 (00:48→12:39)
[2016-09-14] MEDS ORDERED: TRIPLE ANTIBIOTIC TP ONE (11:25)
[2016-09-14] MEDS ORDERED: FLUSH HEPARIN IV ONE (11:26)
[2016-09-14] MEDS ORDERED: ROXICODONE PO PRN (13:42)
[2016-09-14] MEDS ORDERED: TYLENOL PO ONE (13:43)
[2016-09-14] MEDS ORDERED: DILAUDID IV PRN (13:44)
--- NOTE | 2016-09-14 14:54 | Progress Note ---
Assessment and Plan Assessment and plan: This is a 31-year-old male with a past medical history of sickle cell disease, cardiomyopathy, ejection fraction of 45-50%. presents to the ER complaining of generalized pain. Pain mainly located in his back, arms, bilateral chest wall, and also in his anterior thighs. Pain describes as achy and sharp. No cough. No mucous production. No testicular pain. No abdominal pain. No irritative or obstructive urinary symptoms. Reports home medications are not helping. In the ER hb noted to be 6.5. 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 * Continue chelation therapy * Continue Aggressive IV fluid hydration * Status post 1 unit packed red blood cell transfusion with good response * Hematology input appreciated * GI and DVT prophylaxis * Serial monitoring of H&H * Pain control History Interval history: Follow-up sickle cell Patient seen and examined this morning in no acute distress, continues to have generalized body pain and a low grade temp this morning Denies any chest pain, nausea, vomiting, diarrhea Blood pressure controlled No adverse events reported to me by nursing staff Hospitalist Physical - Physical exam Narrative exam: VITAL SIGNS: Reviewed. GENERAL: The patient appeared well nourished and normally developed. Vital signs as documented. HEAD: No signs of head trauma. EYES: Pupils are equal. Extraocular motions intact. EARS: Hearing grossly intact. MOUTH: Oropharynx is normal. NECK: No adenopathy, no JVD. CHEST: Chest with clear breath sounds bilaterally. No wheezes, rales, or rhonchi. CARDIAC: Regular rate and rhythm. S1 and S2, without murmurs, gallops, or rubs. VASCULAR: No Edema. Peripheral pulses normal and equal in all extremities. ABDOMEN: Soft, without detectable tenderness. No sign of distention. No rebound or guarding, and no masses palpated. Bowel Sounds normal. MUSCULOSKELETAL: Good range of motion of all major joints. Extremities without clubbing, cyanosis or edema. NEUROLOGIC EXAM: Alert and oriented x 3. No focal sensory or strength deficits. Speech normal. Follows commands. PSYCHIATRIC: Mood normal. SKIN: No rash or lesions. - Constitutional Vitals: Temp Pulse Resp BP Pulse Ox 100.2 F H 79 16 124/71 99 09/14/16 13:33 09/14/16 13:33 09/14/16 13:33 09/14/16 13:33 09/14/16 13:33 General appearance: Present: mild distress, well-nourished Results - Labs CBC & Chem 7: 09/12/16 12:55 09/10/16 Unknown Labs: Laboratory Last Values WBC 9.2 K/mm3 (4.5-11.0) 09/10/16 Unknown RBC 1.77 M/mm3 (3.65-5.03) L 09/10/16 Unknown Hgb 8.2 gm/dl (11.8-15.2) L 09/12/16 12:55 Hct 24.3 % (35.5-45.6) L 09/12/16 12:55 MCV 105 fl (84-94) H D 09/10/16 Unknown MCH 37 pg (28-32) H 09/10/16 Unknown MCHC 35 % (32-34) H 09/10/16 Unknown RDW 32.7 % (13.2-15.2) H 09/10/16 Unknown Plt Count 231 K/mm3 (140-440) 09/10/16 Unknown Percent Retic 10.39 % (0.78-2.58) H 09/10/16 Unknown Sodium 142 mmol/L (137-145) 09/10/16 Unknown Potassium 4.2 mmol/L (3.6-5.0) 09/10/16 Unknown Chloride 104.5 mmol/L (98-107) 09/10/16 Unknown Carbon Dioxide 22 mmol/L (22-30) 09/10/16 Unknown Anion Gap 20 mmol/L 09/10/16 Unknown BUN 15 mg/dL (9-20) 09/10/16 Unknown Creatinine 0.4 mg/dL (0.8-1.5) L 09/10/16 Unknown Estimated GFR > 60 ml/min 09/10/16 Unknown BUN/Creatinine Ratio 37.50 % 09/10/16 Unknown Glucose 102 mg/dL (75-100) H 09/10/16 Unknown Calcium 9.0 mg/dL (8.4-10.2) 09/10/16 Unknown Iron 174 ug/dL (49-181) 09/12/16 07:20 TIBC 198 mcg/dL (250-450) L 09/12/16 07:20 Ferritin 6172.0 ng/mL (13.0-400.0) H 09/14/16 10:30 Lactate Dehydrogenase 621 units/L (91-180) H 09/10/16 Unknown Urine Color Yellow (Yellow) 09/11/16 01:05 Urine Turbidity Clear (Clear) 09/11/16 01:05 Urine pH 5.0 (5.0-7.0) 09/11/16 01:05 Ur Specific [place] 1.010 (1.003-1.030) 09/11/16 01:05 Urine Protein 30 mg/dl mg/dL (Negative) 09/11/16 01:05 Urine Glucose (UA) Neg mg/dL (Negative) 09/11/16 01:05 Urine Ketones Neg mg/dL (Negative) 09/11/16 01:05 Urine Blood Mod (Negative) 09/11/16 01:05 Urine Nitrite Neg (Negative) 09/11/16 01:05 Urine Bilirubin Neg (Negative) 09/11/16 01:05 Urine Urobilinogen < 2.0 mg/dL (<2.0) 09/11/16 01:05 Ur Leukocyte Esterase Neg (Negative) 09/11/16 01:05 Urine WBC (Auto) 1.0 /HPF (0.0-6.0) 09/11/16 01:05 Urine RBC (Auto) 2.0 /HPF (0.0-6.0) 09/11/16 01:05 Urine Bacteria (Auto) 1+ /HPF (Negative) 09/11/16 01:05 Blood Type O POSITIVE 09/11/16 00:44 Antibody Screen Negative 09/11/16 00:44 Crossmatch See Detail 09/11/16 00:44
[2016-09-14] MEDS: NACL 0.9% 1000 ML 1,000 ML IV SCH ×3 (15:38→23:52)
[2016-09-14 17:49] LABS: Hematocrit 25.4 % (35.5-45.6); Hemoglobin 8.6 gm/dl (11.8-15.2); Mean Corpuscular HGB Conc 34 % (32-34); Mean Corpuscular Hemoglobin 34 pg (28-32); Mean Corpuscular Volume 100 fl (84-94); Platelet Count 257 K/mm3 (140-440); Red Blood Count 2.55 M/mm3 (3.65-5.03); White Blood Count 8.3 K/mm3 (4.5-11.0)
--- NOTE | 2016-09-14 19:16 | Consultation ---
History of Present Illness - Reason for Consult Consult date: 09/14/16 - History of Present Illness Patient seen/examined, labs reviewed, d/c was held due to fever. Past History Past Medical History: anemia Social history: no significant social history Family history: no significant family history Medications and Allergies Allergies Allergy/AdvReac Type Severity Reaction Status Date / Time ceftriaxone sodium Allergy Unknown Verified 10/25/15 10:46 [From Rocephin] meperidine HCl [From Demerol] Allergy Unknown Verified 10/25/15 10:46 Home Medications Medication Instructions Recorded Confirmed Last Taken Type Folic Acid [Folvite] 1 mg PO QDAY 03/24/15 03/27/16 03/27/16 History Ketorolac [Toradol] 10 mg PO Q6H PRN #20 tablet 09/13/16 Unknown Rx Morphine ER [Ms Contin ER] 30 mg PO Q12H #30 tablet 09/13/16 Unknown Rx oxyCODONE [Roxicodone TAB] 5 mg PO Q6HR PRN #15 tablet 09/13/16 Unknown Rx Active Meds: Active Medications Diphenhydramine HCl (Benadryl) 25 mg IV Q6H PRN PRN Reason: Itching Last Admin: 09/14/16 12:39 Dose: 25 mg Hydromorphone HCl (Dilaudid) 1 mg IV Q6H PRN PRN Reason: Pain , Severe (7-10) Last Admin: 09/14/16 15:18 Dose: 1 mg Sodium Chloride (Nacl 0.9% 1000 Ml) 1,000 mls @ 120 mls/hr IV DIRECT WAYNE Last Admin: 09/14/16 15:40 Dose: 120 mls/hr Morphine Sulfate (Ms Contin Er) 30 mg PO Q12HR WAYNE Oxycodone HCl (Roxicodone) 5 mg PO Q6H PRN PRN Reason: Pain, Moderate (4-6) Last Admin: 09/14/16 16:53 Dose: 5 mg Review of Systems Constitutional: fever, chronic pain Musculoskeletal: low back pain Exam - Constitutional Vitals: Temp Pulse Resp BP Pulse Ox 100.1 F H 77 18 129/72 99 09/14/16 14:55 09/14/16 14:55 09/14/16 14:55 09/14/16 14:55 09/14/16 14:55 General appearance: Present: mild distress, well-nourished - EENT Eyes: Present: PERRL ENT: hearing intact, clear oral mucosa - Neck Neck: Present: supple, normal ROM - Respiratory Respiratory effort: normal Respiratory: bilateral: CTA - Cardiovascular Heart Sounds: Present: S1 & S2. Absent: rub, click - Extremities Extremities: pulses symmetrical, No edema Peripheral Pulses: within normal limits - Abdominal General gastrointestinal: Present: soft, non-tender, non-distended, normal bowel sounds Male genitourinary: Present: deferred - Rectal Rectal Exam: deferred - Integumentary Integumentary: Present: clear, warm, dry - Musculoskeletal Musculoskeletal: gait normal, strength equal bilaterally - Psychiatric Psychiatric: appropriate mood/affect, intact judgment & insight - Neurologic Neurologic: CNII-XII intact, moves all extremities Results - Labs CBC & Chem 7: 09/14/16 17:03 09/10/16 Unknown Labs: Abnormal lab results 09/14/16 09/14/16 Range/Units 10:30 17:03 RBC 2.55 L (3.65-5.03) M/mm3 Hgb 8.6 L (11.8-15.2) gm/dl Hct 25.4 L (35.5-45.6) % MCV 100 H (84-94) fl MCH 34 H (28-32) pg RDW 30.0 H (13.2-15.2) % Ferritin 6172.0 H (13.0-400.0) ng/mL Assessment and Plan - Patient Problems (1) Symptomatic anemia Current Visit: Yes Status: Acute Plan to address problem: better with transfusion of blood. (2) Sickle cell anemia Current Visit: Yes Status: Chronic Qualifiers: Sickle-cell associated disorders: S Plan to address problem: better since replacement transfusion. (3) Dehydration Current Visit: No Status: Acute Plan to address problem: Continue hydration. (4) Iron overload due to repeated red blood cell transfusions Current Visit: Yes Status: Acute Plan to address problem: Check iron level, and treat as necessary. He will need iron chelation. He will get one more dose tonight, can still be d/c home tomorrow.
[2016-09-14] MEDS ORDERED: BENADRYL IV PRN (19:19)
[2016-09-14] MEDS: MS CONTIN ER PO SCH (22:35)
[2016-09-15] MEDS: DILAUDID IV PRN ×4 (00:33→12:55)
[2016-09-15] MEDS: BENADRYL IV PRN ×4 (00:34→12:55)
[2016-09-15 06:24] LABS: Hematocrit 22.8 % (35.5-45.6); Hemoglobin 7.7 gm/dl (11.8-15.2); Mean Corpuscular HGB Conc 34 % (32-34); Mean Corpuscular Hemoglobin 34 pg (28-32); Mean Corpuscular Volume 100 fl (84-94); Platelet Count 219 K/mm3 (140-440); Red Blood Count 2.28 M/mm3 (3.65-5.03); White Blood Count 7.4 K/mm3 (4.5-11.0)
[2016-09-15 06:26] LABS: Anion Gap 17 mmol/L; Blood Urea Nitrogen 11 mg/dL (9-20); Calcium 8.4 mg/dL (8.4-10.2); Carbon Dioxide 23 mmol/L (22-30); Chloride 103.7 mmol/L (98-107); Glucose 90 mg/dL (75-100); Potassium 4.4 mmol/L (3.6-5.0); Sodium 139 mmol/L (137-145)
[2016-09-15 06:38] LABS: Red Cell Distribution Width 29.2 % (13.2-15.2)
[2016-09-15] MEDS: NACL 0.9% 1000 ML 1,000 ML IV SCH ×2 (07:32→14:52)
[2016-09-15] MEDS: MS CONTIN ER PO SCH (09:42)
[2016-09-15] MEDS ORDERED: NACL 0.9% IV SCH (10:00)
[2016-09-15] MEDS ORDERED: [UNRECOGNIZED DRUG - OTHER] IV SCH (10:00)
[2016-09-15] MEDS ORDERED: TRIPLE ANTIBIOTIC TP SCH (14:53)
[2016-09-15] MEDS ORDERED: FLUSH HEPARIN IV SCH (14:55)
[2016-09-15 15:27] VITALS: BP 131/57
== END 2016-09-15 16:20 | disposition home or self-care (01) | DRG 812 ==
LOC: ED 14:45 → 3A 09-11 00:43
PROVIDERS: ADMIT Internal Medicine; ATTEND Internal Medicine
PROC: 30233N1 Transfusion of Nonautologous Red Blood Cells into Peripheral Vein, Percutaneous Approach (ICD-10-PCS; principal; 2016-09-11)
DX: D57.00 Hb-SS disease with crisis, unspecified (principal); I42.9 Cardiomyopathy, unspecified; F11.20 Opioid dependence, uncomplicated; I50.9 Heart failure, unspecified; E86.0 Dehydration; E83.111 Hemochromatosis due to repeated red blood cell transfusions; M54.9 Dorsalgia, unspecified; G89.29 Other chronic pain; Z90.49 Acquired absence of other specified parts of digestive tract; Z88.8 Allergy status to other drugs, medicaments and biological substances; Z82.49 Family history of ischemic heart disease and other diseases of the circulatory system
CPT/HCPCS: 36415; 71010; 80048; 81001; 82140; 82728; 83550; 83615; 85014; 85018; 85027; 85045; 85660; 86850; 86900; 86901; 86902; 86920; 87040; 96374; 96375; 96376; A6250; J0895; J1170; J1200; J1642; J1885; J2405; J7030; J7040; J7050; P9016

== ENCOUNTER 2016-11-18 02:17 | Inpatient (IN) | payer MEDICAID ==
[2016-11-18] MEDS ORDERED: D5NS 0.2% 1,000 ML IV SCH (03:00)
[2016-11-18 03:13] LABS: Hematocrit 22.3 % (35.5-45.6); Hemoglobin 7.5 gm/dl (11.8-15.2); Mean Corpuscular HGB Conc 34 % (32-34); Mean Corpuscular Hemoglobin 34 pg (28-32); Mean Corpuscular Volume 100 fl (84-94); Platelet Count 316 K/mm3 (140-440); Red Blood Count 2.22 M/mm3 (3.65-5.03); Reticulocyte % 11.89 % (0.78-2.58); White Blood Count 12.4 K/mm3 (4.5-11.0)
[2016-11-18 03:59] LABS: Blastocytes % (Manual) 0 %
[2016-11-18 04:00] LABS: Anisocytosis 3+
[2016-11-18 04:01] LABS: Sickle Cells 2+
[2016-11-18 04:02] LABS: Stomatocytes Few; Target Cells Few
[2016-11-18 04:07] LABS: Diff Status Complete
[2016-11-18] MEDS ORDERED: DILAUDID IV ONE ×3 (06:24→08:41)
[2016-11-18] MEDS ORDERED: BENADRYL IV ONE (06:24)
--- NOTE | 2016-11-18 06:26 | Emergency Department Report ---
ED General Adult HPI - General Chief complaint: Sickle Cell Crisis Stated complaint: SICKLE CELL CRISIS Time Seen by Provider: 11/18/16 06:20 Source: patient Mode of arrival: Ambulatory Limitations: No Limitations - History of Present Illness Initial comments: 31-year-old male presents to the emergency department complaining of sickle cell pain. Patient reports she has been having intermittent right leg pain for the past one week. His pain is increasing. He states that he has been taking his oxycodone at home without relief. Pain is described as an aching sensation that does not radiate. He states this is similar to his previous sickle cell crises. He denies fever, chest pain, or difficulty breathing. There are no other complaints. -: Gradual, week(s) (1) Location: right, lower extremity Radiation: non-radiation Severity scale (0 -10): 7 Quality: aching Consistency: constant Improves with: none Worsens with: none Associated Symptoms: denies other symptoms - Related Data Home Medications Medication Instructions Recorded Confirmed Last Taken Folic Acid [Folvite] 1 mg PO QDAY 03/24/15 03/27/16 03/27/16 Allergies Allergy/AdvReac Type Severity Reaction Status Date / Time ceftriaxone sodium Allergy Unknown Verified 10/25/15 10:46 [From Rocephin] meperidine HCl [From Demerol] Allergy Unknown Verified 10/25/15 10:46 ED Review of Systems ROS: Stated complaint: SICKLE CELL CRISIS Other details as noted in HPI Comment: All other systems reviewed and negative Musculoskeletal: as per HPI, arthralgia, myalgia ED Past Medical Hx - Past Medical History Previous Medical History?: Yes Hx Congestive Heart Failure: Yes Hx Diabetes: No Hx Sickle Cell Disease: Yes Hx Asthma: No Hx COPD: No - Surgical History Past Surgical History?: Yes Hx Cholecystectomy: Yes Additional Surgical History: spleen removed, hernia repair - Family History Family history: no significant - Social History Smoking Status: Never Smoker Substance Use Type: None - Medications Home Medications: Home Medications Medication Instructions Recorded Confirmed Last Taken Type Folic Acid [Folvite] 1 mg PO QDAY 03/24/15 03/27/16 03/27/16 History ED Physical Exam - General Limitations: No Limitations General appearance: alert, in no apparent distress - Head Head exam: Present: atraumatic, normocephalic - Eye Eye exam: Present: normal appearance, PERRL, EOMI - ENT ENT exam: Present: normal exam, normal orophraynx, mucous membranes moist - Neck Neck exam: Present: normal inspection, full ROM. Absent: tenderness - Respiratory Respiratory exam: Present: normal lung sounds bilaterally. Absent: respiratory distress - Cardiovascular Cardiovascular Exam: Present: regular rate, normal rhythm, normal heart sounds - GI/Abdominal GI/Abdominal exam: Present: soft, normal bowel sounds. Absent: distended, tenderness - Extremities Exam Extremities exam: Present: normal inspection, full ROM. Absent: tenderness - Back Exam Back exam: Present: normal inspection, full ROM. Absent: tenderness - Neurological Exam Neurological exam: Present: alert, oriented X3. Absent: motor sensory deficit - Skin Skin exam: Present: warm, dry, intact ED Course Vital Signs 11/18/16 11/18/16 11/18/16 02:30 04:46 06:38 Temperature 98.2 F Pulse Rate 64 66 66 Respiratory 16 18 16 Rate Blood Pressure 127/77 122/74 128/75 [Right] O2 Sat by Pulse 98 99 98 Oximetry 11/18/16 07:07 Temperature Pulse Rate 57 L Respiratory 16 Rate Blood Pressure 114/61 [Right] O2 Sat by Pulse 100 Oximetry ED Medical Decision Making - Lab Data Result diagrams: 11/18/16 02:59 - Medical Decision Making Lab results reviewed and discussed with the patient. Patient is continuing to have severe pain after multiple doses of IV Dilaudid. I have spoken with the patient's waxer, Dr. De Jesus. The patient will be admitted by the hospitalist. - Differential Diagnosis sickle cell pain crisis, sickle cell anemia Critical care attestation.: If time is entered above; I have spent that time in minutes in the direct care of this critically ill patient, excluding procedure time. ED Disposition Clinical Impression: Sickle cell anemia with pain Disposition: OP ADMITTED IP TO THIS HOSP Is pt being admited?: Yes Condition: Stable Referrals: DANIEL DE JESUS DO [Primary Care Provider] - 3-5 Days Time of Disposition: 08:54
--- NOTE | 2016-11-18 08:52 | Admit Criteria Form ---
Admission Criteria Documentation: SICKLE CELL DISEASE Clinical Indications for Admission to Inpatient Care (Place 'X' for any and all applicable criteria): Admission is indicated for ANY ONE of the following(1)(2)(3)(4)(5): [X ]I. Inpatient admission required rather than observation care because of ANY ONE of the following: [ ]a) Altered mental status [ ]b) High fever or infection requiring inpatient admission as indicated by ANY ONE of the following: [ ]A. Appropriate outpatient observation care antimicrobial treatment unavailable, not effective, or not appropriate for infection [ ]B. Documented bacteremia [ ]C. Temp >104.9F (40.5C) (oral) [ ]D. Temp >103.1F (oral) or <96.8F(rectal) that does not respond to all emergency treatment measures [ ]c) Supplemental O2 or respiratory therapy for over 24 h that are performable only in acute inpatient setting [ X]d) Continuous parenteral narcotics other major pain intervention for >24 h performable only in acute inpatient setting. [ ]e) Exchange transfusion [ ]f) Other condition, treatment or monitoring requiring inpatient admission [ ]II. Acute chest syndrome indicated by ALL of the following (10): [ ]a) New alveolar infiltrate involving at least one lung segment [ ]b) Associated pulmonary symptoms or findings as indicated by ANY ONE of the following: [ ]i) Chest pain [ ]ii) Hypoxemia [ ]iii) Tachypnea/dyspnea [ ]iv) Wheezing [ ]v) Cough [ ]vi) Sputum production [ ]III. Significant hypoxemia or acidosis (more severe than baseline) [ ]IV. Emergent surgery needed (eg, acute cholecystitis) [ ]V. -related complication(11) [ ]. Splenic or hepatic sequestration(12) [ ]VII. Aplastic crisis [ ]VIII. Priapism or other vascular complication(13) [ ]IX. Traumatic hyphema [A](14) [ ]X. Underlying condition requiring hospitalization (eg, osteomyelitis) [ ]XI. Signs or symptoms of central nervous system injury indicated by ANY ONE of the following: [ ]a) Stroke(9) [ ]b) Seizure [ ]c) Other significant central nervous system symptom or event [ ]XII. Acute renal failure Extended stay beyond goal length of stay may be needed for: [ ]a) Inadequate pain control [ ]b) Acute chest syndrome [ ]c) Sequestration or aplastic crisis (12) [ ]d) Pneumonia and asthma exacerbation [ ]e) Neurologic or vascular complications (25) [ ]f) Infection (eg, osteomyelitis) that requires ongoing treatment) The original [facility] [employer] content created by [facility] has been revised. The portions of the content which have been revised are identified through the use of italic text or in bold, and [facility] has neither reviewed nor approved the modified material. All other unmodified content is copyright [facility]. Please see references footnoted in the original [facility] edition 2016 Admission Criteria Met: Yes
[2016-11-18] MEDS ORDERED: DULCOLAX PR PRN (10:33)
[2016-11-18] MEDS ORDERED: TYLENOL PO PRN (10:33)
[2016-11-18] MEDS ORDERED: MILK OF MAGNESIA PO PRN (10:33)
[2016-11-18] MEDS ORDERED: ZOFRAN IV PRN (10:33)
[2016-11-18] MEDS ORDERED: NORCO 5/325 PO PRN (10:33)
[2016-11-18] MEDS ORDERED: DILAUDID IV PRN (10:33)
--- NOTE | 2016-11-18 10:42 | History and Physical Report ---
History of Present Illness Chief complaint: Generalized body pain History of present illness: 31-year-old male with past medical history of sickle cell disease and CHF EF of 45% he presents in 1 year generalized body pain. He notes that the pain is sharp, deep in his bones, 10 out of 10 and all over his body, pain is worse in the joints of his lower extremities bilaterally. Denies nausea, denies vomiting , denies dysuria, denies fever, denies chills Past History Past Medical History: other (sickle cell disease, E HF EF of 45%, hx of iron overload) Past Surgical History: Other (splenectomy, hernia surgery, cholecystectomy) Social history: no significant social history Family history: hypertension Medications and Allergies Allergies Allergy/AdvReac Type Severity Reaction Status Date / Time ceftriaxone sodium Allergy Unknown Verified 10/25/15 10:46 [From Rocephin] meperidine HCl [From Demerol] Allergy Unknown Verified 10/25/15 10:46 Home Medications Medication Instructions Recorded Confirmed Last Taken Type Folic Acid [Folvite] 1 mg PO QDAY 03/24/15 03/27/16 03/27/16 History Active Meds: Active Medications Acetaminophen (Tylenol) 650 mg PO Q4H PRN PRN Reason: Pain MILD(1-3)/Fever >100.5/SMITH Acetaminophen/Hydrocodone Bitart ([place] 5/325) 2 each PO Q6H PRN PRN Reason: Pain, Moderate (4-6) Bisacodyl (Dulcolax) 10 mg AL QDAY PRN PRN Reason: Constipation unrelieved by MOM Enoxaparin Sodium (Lovenox) 40 mg SUB-Q DAILY ONE Stop: 11/18/16 10:38 Folic Acid (Folvite) 1 mg PO QDAY WAYNE Hydromorphone HCl (Dilaudid) 1 mg IV Q3H PRN PRN Reason: Pain , Severe (7-10) Sodium Chloride (Nacl 0.45% 1000 Ml) 1,000 mls @ 42 mls/hr IV DIRECT WAYNE Magnesium Hydroxide (Milk Of Magnesia) 30 ml PO Q4H PRN PRN Reason: Constipation Ondansetron HCl (Zofran) 4 mg IV Q8H PRN PRN Reason: N/V unrelieved by Reglan Review of Systems All systems: negative Constitutional: weakness Exam - Constitutional Vitals: Temp Pulse Resp BP Pulse Ox 98 F 58 L 16 114/75 98 11/18/16 09:02 11/18/16 09:02 11/18/16 09:02 11/18/16 09:02 11/18/16 09:02 General appearance: Present: mild distress, well-nourished - EENT Eyes: Present: PERRL ENT: hearing intact, clear oral mucosa - Neck Neck: Present: supple, normal ROM - Respiratory Respiratory effort: normal Respiratory: bilateral: CTA - Cardiovascular Heart Sounds: Present: S1 & S2. Absent: rub, click - Extremities Extremities: pulses symmetrical, No edema Peripheral Pulses: within normal limits - Abdominal General gastrointestinal: Present: soft, non-tender, non-distended, normal bowel sounds Male genitourinary: Present: normal - Integumentary Integumentary: Present: clear, warm, dry - Musculoskeletal Musculoskeletal: gait normal, strength equal bilaterally - Psychiatric Psychiatric: appropriate mood/affect, intact judgment & insight - Neurologic Neurologic: CNII-XII intact, moves all extremities Results - Labs CBC & Chem 7: 11/18/16 02:59 11/18/16 11:06 Labs: Laboratory Last Values WBC 12.4 K/mm3 (4.5-11.0) H 11/18/16 02:59 RBC 2.22 M/mm3 (3.65-5.03) L 11/18/16 02:59 Hgb 7.5 gm/dl (11.8-15.2) L 11/18/16 02:59 Hct 22.3 % (35.5-45.6) L 11/18/16 02:59 MCV 100 fl (84-94) H 11/18/16 02:59 MCH 34 pg (28-32) H 11/18/16 02:59 MCHC 34 % (32-34) 11/18/16 02:59 RDW 30.0 % (13.2-15.2) H 11/18/16 02:59 Plt Count 316 K/mm3 (140-440) 11/18/16 02:59 Add Manual Diff Complete 11/18/16 02:59 Total Counted 100 11/18/16 02:59 Seg Neuts % (Manual) 61.0 % (40.0-70.0) 11/18/16 02:59 Band Neutrophils % 0 % 11/18/16 02:59 Lymphocytes % (Manual) 26.0 % (13.4-35.0) 11/18/16 02:59 Reactive Lymphs % (Man) 0 % 11/18/16 02:59 Monocytes % (Manual) 8.0 % (0.0-7.3) H 11/18/16 02:59 Eosinophils % (Manual) 4.0 % (0.0-4.3) 11/18/16 02:59 Basophils % (Manual) 1.0 % (0.0-1.8) 11/18/16 02:59 Metamyelocytes % 0 % 11/18/16 02:59 Myelocytes % 0 % 11/18/16 02:59 Promyelocytes % 0 % 11/18/16 02:59 Blast Cells % 0 % 11/18/16 02:59 Nucleated RBC % Not Reportable 11/18/16 02:59 Seg Neutrophils # Man 7.6 K/mm3 (1.8-7.7) 11/18/16 02:59 Band Neutrophils # 0.0 K/mm3 11/18/16 02:59 Lymphocytes # (Manual) 3.2 K/mm3 (1.2-5.4) 11/18/16 02:59 Abs React Lymphs (Man) 0.0 K/mm3 11/18/16 02:59 Monocytes # (Manual) 1.0 K/mm3 (0.0-0.8) H 11/18/16 02:59 Eosinophils # (Manual) 0.5 K/mm3 (0.0-0.4) H 11/18/16 02:59 Basophils # (Manual) 0.1 K/mm3 (0.0-0.1) 11/18/16 02:59 Metamyelocytes # 0.0 K/mm3 11/18/16 02:59 Myelocytes # 0.0 K/mm3 11/18/16 02:59 Promyelocytes # 0.0 K/mm3 11/18/16 02:59 Blast Cells # 0.0 K/mm3 11/18/16 02:59 WBC Morphology Not Reportable 11/18/16 02:59 Hypersegmented Neuts Not Reportable 11/18/16 02:59 Hyposegmented Neuts Not Reportable 11/18/16 02:59 Hypogranular Neuts Not Reportable 11/18/16 02:59 Smudge Cells Not Reportable 11/18/16 02:59 Toxic Granulation Not Reportable 11/18/16 02:59 Toxic Vacuolation Not Reportable 11/18/16 02:59 Dohle Bodies Not Reportable 11/18/16 02:59 Pelger-Huet Anomaly Not Reportable 11/18/16 02:59 Christian Rods Not Reportable 11/18/16 02:59 Platelet Estimate Appears normal 11/18/16 02:59 Clumped Platelets Not Reportable 11/18/16 02:59 Plt Clumps, EDTA Not Reportable 11/18/16 02:59 Large Platelets Not Reportable 11/18/16 02:59 Giant Platelets Not Reportable 11/18/16 02:59 Platelet Satelliting Not Reportable 11/18/16 02:59 Plt Morphology Comment Not Reportable 11/18/16 02:59 RBC Morphology Not Reportable 11/18/16 02:59 Dimorphic RBCs Not Reportable 11/18/16 02:59 Polychromasia Not Reportable 11/18/16 02:59 Hypochromasia Not Reportable 11/18/16 02:59 Poikilocytosis Not Reportable 11/18/16 02:59 Anisocytosis 3+ 11/18/16 02:59 Microcytosis Not Reportable 11/18/16 02:59 Macrocytosis Not Reportable 11/18/16 02:59 Spherocytes Not Reportable 11/18/16 02:59 Pappenheimer Bodies Not Reportable 11/18/16 02:59 Sickle Cells 2+ 11/18/16 02:59 Target Cells Few 11/18/16 02:59 Tear Drop Cells Not Reportable 11/18/16 02:59 Ovalocytes Not Reportable 11/18/16 02:59 Stomatocytes Few 11/18/16 02:59 Helmet Cells Not Reportable 11/18/16 02:59 [place] Bodies Not Reportable 11/18/16 02:59 [place] Rings Not Reportable 11/18/16 02:59 [place] Cells Not Reportable 11/18/16 02:59 Bite Cells Not Reportable 11/18/16 02:59 Crenated Cell Not Reportable 11/18/16 02:59 Elliptocytes Not Reportable 11/18/16 02:59 Acanthocytes (Spur) Not Reportable 11/18/16 02:59 Rouleaux Not Reportable 11/18/16 02:59 Hemoglobin C Crystals Not Reportable 11/18/16 02:59 Schistocytes Not Reportable 11/18/16 02:59 Malaria parasites Not Reportable 11/18/16 02:59 Percent Retic 11.89 % (0.78-2.58) H 11/18/16 02:59 You Bodies Not Reportable 11/18/16 02:59 Hem Pathologist Commnt No 11/18/16 02:59 Assessment and Plan Assessment and plan: 31-year-old male past medical history of sickle cell disease who presents with sickle cell pain crisis 1. Sickle cell pain crisis Pain medications and IV fluids have been ordered, will also obtain infectious workup to rule out infectious etiology to this crisis. We'll obtain a UA and chest x-ray. Hematology has been consulted 2. Chronic hemolytic anemia Hemoglobin is currently stable, transfuse to keep hemoglobin above 7 3. History of CHF, chronic systolic Patient does not appear to be in exacerbation, as he has had an echocardiogram in about 2 years repeat echo, optimize meds as necessary 4. DVT prophylaxis The molecular weight heparin 5. SIRS likely due to crisis, infection workup negative, including UA and CXR, rx underlying cause Plan of care discussed with patient/family: Yes
--- NOTE | 2016-11-18 11:18 | XRay Report ---
CHEST TWO VIEWS: 11/18/16 02:17:00 CLINICAL: Chest pain. COMPARISON: 09/11/16 FINDINGS: Stable cardiomegaly. Mild redistribution of pulmonary blood flow to the upper lobes.A right [id number] tip is in the right atrium and is unchanged. The lungs are normally expanded and clear.The bones and soft tissues are unremarkable. IMPRESSION: Cardiomegaly and pulmonary venous hypertension. No CHF or pneumonia.
[2016-11-18 12:00] LABS: Anion Gap 17 mmol/L; BUN/Creatinine Ratio 33.33; Blood Urea Nitrogen 10 mg/dL (9-20); Calcium 8.7 mg/dL (8.4-10.2); Carbon Dioxide 22 mmol/L (22-30); Chloride 106.7 mmol/L (98-107); Glucose 93 mg/dL (75-100); Potassium 4.2 mmol/L (3.6-5.0); Sodium 141 mmol/L (137-145)
[2016-11-18 12:07] LABS: Bacteria,Urine 1+ /HPF (Negative); Bilirubin,Urine NEG (Negative); Blood,Urine SM (Negative); Ketones,Urine NEG (Negative); Leukocyte Esterase,Urine NEG (Negative); Mucus,Urine FEW /HPF; Nitrite,Urine NEG (Negative); Urobilinogen,Urine < 2.0 mg/dL (<2.0); WBC,Urine < 1.0 /HPF (0.0-6.0)
[2016-11-18] MEDS ORDERED: LOVENOX SUB-Q ONE (12:30)
[2016-11-18] MEDS: NACL 0.45% 1000 ML 1,000 ML IV SCH (13:40)
[2016-11-18] MEDS ORDERED: BENADRYL PO PRN (13:53)
[2016-11-18] MEDS: DILAUDID IV PRN ×3 (15:30→22:07)
--- NOTE | 2016-11-18 21:01 | Consultation ---
History of Present Illness - Reason for Consult Consult date: 11/18/16 - History of Present Illness Thank you for this consult. patient seen/examined, chart reviewed, case d/w patient. He was recently seen in the office , he feritin level was over 6000 consistent with his hx of chronic iron overload due to transfusion.Will try him on desferol tx. Past History Past Medical History: anemia, other (sickle cell disease, E HF EF of 45%, hx of iron overload) Past Surgical History: Other (splenectomy, hernia surgery, cholecystectomy) Social history: no significant social history Family history: hypertension Medications and Allergies Allergies Allergy/AdvReac Type Severity Reaction Status Date / Time ceftriaxone sodium Allergy Unknown Verified 10/25/15 10:46 [From Rocephin] meperidine HCl [From Demerol] Allergy Unknown Verified 10/25/15 10:46 Home Medications Medication Instructions Recorded Confirmed Last Taken Type Folic Acid [Folvite] 1 mg PO QDAY 03/24/15 03/27/16 03/27/16 History Active Meds: Active Medications Acetaminophen (Tylenol) 650 mg PO Q4H PRN PRN Reason: Pain MILD(1-3)/Fever >100.5/SMITH Acetaminophen/Hydrocodone Bitart ([place] 5/325) 2 each PO Q6H PRN PRN Reason: Pain, Moderate (4-6) Bisacodyl (Dulcolax) 10 mg MD QDAY PRN PRN Reason: Constipation unrelieved by MOM Diphenhydramine HCl (Benadryl) 25 mg PO Q6H PRN PRN Reason: Itching Last Admin: 11/18/16 15:30 Dose: 25 mg Folic Acid (Folvite) 1 mg PO QDAY WAYNE Hydromorphone HCl (Dilaudid) 2 mg IV Q3H PRN PRN Reason: Pain , Severe (7-10) Last Admin: 11/18/16 18:40 Dose: 2 mg Sodium Chloride (Nacl 0.45% 1000 Ml) 1,000 mls @ 42 mls/hr IV DIRECT WAYNE Last Admin: 11/18/16 13:40 Dose: 42 mls/hr Magnesium Hydroxide (Milk Of Magnesia) 30 ml PO Q4H PRN PRN Reason: Constipation Ondansetron HCl (Zofran) 4 mg IV Q8H PRN PRN Reason: N/V unrelieved by [facility] Review of Systems Constitutional: chronic pain Musculoskeletal: low back pain Exam - Constitutional Vitals: Temp Pulse Resp BP Pulse Ox 98.1 F 67 18 118/74 96 11/18/16 16:05 11/18/16 16:05 11/18/16 16:05 11/18/16 16:05 11/18/16 13:25 General appearance: Present: mild distress, well-nourished - EENT Eyes: Present: PERRL ENT: hearing intact, clear oral mucosa - Neck Neck: Present: supple, normal ROM - Respiratory Respiratory effort: normal Respiratory: bilateral: CTA - Cardiovascular Heart Sounds: Present: S1 & S2. Absent: rub, click - Extremities Extremities: pulses symmetrical, No edema Peripheral Pulses: within normal limits - Abdominal General gastrointestinal: Present: soft, non-tender, non-distended, normal bowel sounds Male genitourinary: Present: deferred - Rectal Rectal Exam: deferred - Integumentary Integumentary: Present: clear, warm, dry - Musculoskeletal Musculoskeletal: gait normal, strength equal bilaterally - Psychiatric Psychiatric: appropriate mood/affect, intact judgment & insight - Neurologic Neurologic: CNII-XII intact, moves all extremities Results - Labs CBC & Chem 7: 11/18/16 02:59 11/18/16 11:06 Labs: Abnormal lab results 11/18/16 Range/Units 11:06 Creatinine 0.3 L (0.8-1.5) mg/dL Assessment and Plan - Patient Problems (1) Sickle cell anemia with pain Current Visit: Yes Status: Acute Plan to address problem: Pain control. (2) Dehydration Current Visit: No Status: Acute Plan to address problem: hydration. (3) Pain Current Visit: Yes Status: Acute Plan to address problem: Pain control. (4) Iron overload due to repeated red blood cell transfusions Current Visit: Yes Status: Acute Plan to address problem: treat with desferol
[2016-11-18] MEDS: BENADRYL IV PRN (22:09)
[2016-11-18 22:50] LABS: Reticulocyte % 11.73 % (0.78-2.58)
[2016-11-18 23:06] LABS: Anion Gap 14 mmol/L; Blood Urea Nitrogen 11 mg/dL (9-20); Calcium 8.6 mg/dL (8.4-10.2); Carbon Dioxide 26 mmol/L (22-30); Glucose 96 mg/dL (75-100); Potassium 3.7 mmol/L (3.6-5.0); Sodium 139 mmol/L (137-145)
[2016-11-19] MEDS: DILAUDID IV PRN ×7 (01:37→23:03)
[2016-11-19] MEDS: BENADRYL IV PRN ×6 (04:50→23:04)
[2016-11-19 08:33] LABS: Hemoglobin 6.8 gm/dl (11.8-15.2); Mean Corpuscular HGB Conc 35 % (32-34); Mean Corpuscular Hemoglobin 35 pg (28-32); Mean Corpuscular Volume 100 fl (84-94); Platelet Count 269 K/mm3 (140-440); Red Blood Count 1.97 M/mm3 (3.65-5.03); White Blood Count 12.6 K/mm3 (4.5-11.0)
[2016-11-19 08:49] LABS: Hematocrit 19.7 % (35.5-45.6)
[2016-11-19 08:52] LABS: Anion Gap 18 mmol/L; BUN/Creatinine Ratio 33.33; Blood Urea Nitrogen 10 mg/dL (9-20); Calcium 8.6 mg/dL (8.4-10.2); Carbon Dioxide 23 mmol/L (22-30); Chloride 104.2 mmol/L (98-107); Glucose 85 mg/dL (75-100); Sodium 141 mmol/L (137-145)
[2016-11-19] MEDS: FOLVITE PO SCH (10:00)
[2016-11-19] MEDS: Desferal 3,000 MG in NACL 0.9% 250ML 250 ML IV SCH (10:00)
[2016-11-19 11:01] LABS: Basophils % (Manual) 0 % (0.0-1.8); Blastocytes % (Manual) 0 %
[2016-11-19 11:03] LABS: Anisocytosis 3+; Diff Status Complete; Polychromasia Few; Sickle Cells 2+; Stomatocytes Few; Target Cells Few
[2016-11-19] MEDS ORDERED: NACL 0.9% 500 ML 500 ML IV ONE (12:00)
--- NOTE | 2016-11-19 14:50 | Progress Note ---
Hospitalist Physical - Constitutional Vitals: Temp Pulse Resp BP Pulse Ox 98.4 F 78 18 133/64 96 11/19/16 13:00 11/19/16 13:00 11/19/16 13:00 11/19/16 13:00 11/19/16 07:00 General appearance: Present: mild distress, well-nourished Results - Labs CBC & Chem 7: 11/19/16 08:18 11/19/16 08:18 Labs: Laboratory Last Values WBC 12.6 K/mm3 (4.5-11.0) H 11/19/16 08:18 RBC 1.97 M/mm3 (3.65-5.03) L 11/19/16 08:18 Hgb 6.8 gm/dl (11.8-15.2) L 11/19/16 08:18 Hct 19.7 % (35.5-45.6) L* 11/19/16 08:18 MCV 100 fl (84-94) H 11/19/16 08:18 MCH 35 pg (28-32) H 11/19/16 08:18 MCHC 35 % (32-34) H 11/19/16 08:18 RDW 30.0 % (13.2-15.2) H 11/19/16 08:18 Plt Count 269 K/mm3 (140-440) 11/19/16 08:18 Add Manual Diff Complete 11/19/16 08:18 Total Counted 100 11/19/16 08:18 Seg Neuts % (Manual) 64.0 % (40.0-70.0) 11/19/16 08:18 Band Neutrophils % 0 % 11/19/16 08:18 Lymphocytes % (Manual) 22.0 % (13.4-35.0) 11/19/16 08:18 Reactive Lymphs % (Man) 0 % 11/19/16 08:18 Monocytes % (Manual) 9.0 % (0.0-7.3) H 11/19/16 08:18 Eosinophils % (Manual) 5.0 % (0.0-4.3) H 11/19/16 08:18 Basophils % (Manual) 0 % (0.0-1.8) 11/19/16 08:18 Metamyelocytes % 0 % 11/19/16 08:18 Myelocytes % 0 % 11/19/16 08:18 Promyelocytes % 0 % 11/19/16 08:18 Blast Cells % 0 % 11/19/16 08:18 Nucleated RBC % 3.0 % (0.0-0.9) H 11/19/16 08:18 Seg Neutrophils # Man 8.1 K/mm3 (1.8-7.7) H 11/19/16 08:18 Band Neutrophils # 0.0 K/mm3 11/19/16 08:18 Lymphocytes # (Manual) 2.8 K/mm3 (1.2-5.4) 11/19/16 08:18 Abs React Lymphs (Man) 0.0 K/mm3 11/19/16 08:18 Monocytes # (Manual) 1.1 K/mm3 (0.0-0.8) H 11/19/16 08:18 Eosinophils # (Manual) 0.6 K/mm3 (0.0-0.4) H 11/19/16 08:18 Basophils # (Manual) 0.0 K/mm3 (0.0-0.1) 11/19/16 08:18 Metamyelocytes # 0.0 K/mm3 11/19/16 08:18 Myelocytes # 0.0 K/mm3 11/19/16 08:18 Promyelocytes # 0.0 K/mm3 11/19/16 08:18 Blast Cells # 0.0 K/mm3 11/19/16 08:18 WBC Morphology Not Reportable 11/19/16 08:18 Hypersegmented Neuts Not Reportable 11/19/16 08:18 Hyposegmented Neuts Not Reportable 11/19/16 08:18 Hypogranular Neuts Not Reportable 11/19/16 08:18 Smudge Cells Not Reportable 11/19/16 08:18 Toxic Granulation Not Reportable 11/19/16 08:18 Toxic Vacuolation Not Reportable 11/19/16 08:18 Dohle Bodies Not Reportable 11/19/16 08:18 Pelger-Huet Anomaly Not Reportable 11/19/16 08:18 Christian Rods Not Reportable 11/19/16 08:18 Platelet Estimate Appears normal 11/19/16 08:18 Clumped Platelets Not Reportable 11/19/16 08:18 Plt Clumps, EDTA Not Reportable 11/19/16 08:18 Large Platelets Not Reportable 11/19/16 08:18 Giant Platelets Not Reportable 11/19/16 08:18 Platelet Satelliting Not Reportable 11/19/16 08:18 Plt Morphology Comment Not Reportable 11/19/16 08:18 RBC Morphology Not Reportable 11/19/16 08:18 Dimorphic RBCs Not Reportable 11/19/16 08:18 Polychromasia Few 11/19/16 08:18 Hypochromasia Not Reportable 11/19/16 08:18 Poikilocytosis Not Reportable 11/19/16 08:18 Anisocytosis 3+ 11/19/16 08:18 Microcytosis Not Reportable 11/19/16 08:18 Macrocytosis Not Reportable 11/19/16 08:18 Spherocytes Not Reportable 11/19/16 08:18 Pappenheimer Bodies Not Reportable 11/19/16 08:18 Sickle Cells 2+ 11/19/16 08:18 Target Cells Few 11/19/16 08:18 Tear Drop Cells Not Reportable 11/19/16 08:18 Ovalocytes Not Reportable 11/19/16 08:18 Stomatocytes Few 11/19/16 08:18 Helmet Cells Not Reportable 11/19/16 08:18 [place] Bodies Not Reportable 11/19/16 08:18 [place] Rings Not Reportable 11/19/16 08:18 [place] Cells Not Reportable 11/19/16 08:18 Bite Cells Not Reportable 11/19/16 08:18 Crenated Cell Not Reportable 11/19/16 08:18 Elliptocytes Not Reportable 11/19/16 08:18 Acanthocytes (Spur) Not Reportable 11/19/16 08:18 Rouleaux Not Reportable 11/19/16 08:18 Hemoglobin C Crystals Not Reportable 11/19/16 08:18 Schistocytes Not Reportable 11/19/16 08:18 Malaria parasites Not Reportable 11/19/16 08:18 Percent Retic 11.73 % (0.78-2.58) H 11/18/16 22:15 You Bodies Not Reportable 11/19/16 08:18 Hem Pathologist Commnt No 11/19/16 08:18 Sodium 141 mmol/L (137-145) 11/19/16 08:18 Potassium 4.0 mmol/L (3.6-5.0) 11/19/16 08:18 Chloride 104.2 mmol/L (98-107) 11/19/16 08:18 Carbon Dioxide 23 mmol/L (22-30) 11/19/16 08:18 Anion Gap 18 mmol/L 11/19/16 08:18 BUN 10 mg/dL (9-20) 11/19/16 08:18 Creatinine 0.3 mg/dL (0.8-1.5) L 11/19/16 08:18 Estimated GFR > 60 ml/min 11/19/16 08:18 BUN/Creatinine Ratio 33.33 % 11/19/16 08:18 Glucose 85 mg/dL (75-100) 11/19/16 08:18 Calcium 8.6 mg/dL (8.4-10.2) 11/19/16 08:18 Urine Color Yellow (Yellow) 11/18/16 11:25 Urine Turbidity Clear (Clear) 11/18/16 11:25 Urine pH 5.0 (5.0-7.0) 11/18/16 11:25 Ur Specific [place] 1.010 (1.003-1.030) 11/18/16 11:25 Urine Protein 30 mg/dl mg/dL (Negative) 11/18/16 11:25 Urine Glucose (UA) Neg mg/dL (Negative) 11/18/16 11:25 Urine Ketones Neg mg/dL (Negative) 11/18/16 11:25 Urine Blood Sm (Negative) 11/18/16 11:25 Urine Nitrite Neg (Negative) 11/18/16 11:25 Urine Bilirubin Neg (Negative) 11/18/16 11:25 Urine Urobilinogen < 2.0 mg/dL (<2.0) 11/18/16 11:25 Ur Leukocyte Esterase Neg (Negative) 11/18/16 11:25 Urine WBC (Auto) < 1.0 /HPF (0.0-6.0) 11/18/16 11:25 Urine RBC (Auto) 5.0 /HPF (0.0-6.0) 11/18/16 11:25 Urine Bacteria (Auto) 1+ /HPF (Negative) 11/18/16 11:25 Urine Mucus Few /HPF 04/19/17 11:25 Blood Type O POSITIVE 11/19/16 10:31 Antibody Screen Negative 11/19/16 10:31 Crossmatch See Detail 11/19/16 10:31
--- NOTE | 2016-11-19 18:08 | Consultation ---
History of Present Illness - Reason for Consult Consult date: 11/19/16 - History of Present Illness Patient seen/examined, labs reviewed, case d/w patient. Past History Past Medical History: anemia, other (sickle cell disease, E HF EF of 45%, hx of iron overload) Past Surgical History: Other (splenectomy, hernia surgery, cholecystectomy) Social history: no significant social history Family history: hypertension Medications and Allergies Allergies Allergy/AdvReac Type Severity Reaction Status Date / Time ceftriaxone sodium Allergy Unknown Verified 10/25/15 10:46 [From Rocephin] meperidine HCl [From Demerol] Allergy Unknown Verified 10/25/15 10:46 Home Medications Medication Instructions Recorded Confirmed Last Taken Type Folic Acid [Folvite] 1 mg PO QDAY 03/24/15 03/27/16 03/27/16 History Active Meds: Active Medications Acetaminophen (Tylenol) 650 mg PO Q4H PRN PRN Reason: Pain MILD(1-3)/Fever >100.5/SMITH Acetaminophen/Hydrocodone Bitart ([place] 5/325) 2 each PO Q6H PRN PRN Reason: Pain, Moderate (4-6) Bisacodyl (Dulcolax) 10 mg [place] QDAY PRN PRN Reason: Constipation unrelieved by MOM Diphenhydramine HCl (Benadryl) 12.5 mg IV Q3HR PRN PRN Reason: Itching Last Admin: 11/19/16 16:18 Dose: 12.5 mg Folic Acid (Folvite) 1 mg PO QDAY [facility] Last Admin: 11/19/16 10:00 Dose: 1 mg Hydromorphone HCl (Dilaudid) 2 mg IV Q3H PRN PRN Reason: Pain , Severe (7-10) Last Admin: 11/19/16 16:19 Dose: 2 mg Sodium Chloride (Nacl 0.45% 1000 Ml) 1,000 mls @ 42 mls/hr IV DIRECT WAYNE Last Admin: 11/18/16 13:40 Dose: 42 mls/hr Deferoxamine Mesylate 3,000 mg (/ Sodium Chloride) 250 mls @ 32 mls/hr IV Q24HR WAYNE Last Admin: 11/19/16 10:00 Dose: 32 mls/hr Magnesium Hydroxide (Milk Of Magnesia) 30 ml PO Q4H PRN PRN Reason: Constipation Ondansetron HCl (Zofran) 4 mg IV Q8H PRN PRN Reason[facility] Systems Constitutional: chronic pain Musculoskeletal: low back pain Exam - Constitutional Vitals: Temp Pulse Resp BP Pulse Ox 98 F 69 18 146/91 99 11/19/16 16:00 11/19/16 16:00 11/19/16 16:00 11/19/16 16:00 11/19/16 15:01 General appearance: Present: mild distress, well-nourished - EENT Eyes: Present: PERRL ENT: hearing intact, clear oral mucosa - Neck Neck: Present: supple, normal ROM - Respiratory Respiratory effort: normal Respiratory: bilateral: CTA - Cardiovascular Heart Sounds: Present: S1 & S2. Absent: rub, click - Extremities Extremities: pulses symmetrical, No edema Peripheral Pulses: within normal limits - Abdominal General gastrointestinal: Present: soft, non-tender, non-distended, normal bowel sounds Male genitourinary: Present: deferred - Rectal Rectal Exam: deferred - Integumentary Integumentary: Present: clear, warm, dry - Musculoskeletal Musculoskeletal: gait normal, strength equal bilaterally - Psychiatric Psychiatric: appropriate mood/affect, intact judgment & insight - Neurologic Neurologic: CNII-XII intact, moves all extremities Results - Labs CBC & Chem 7: 11/19/16 08:18 11/19/16 08:18 Labs: Abnormal lab results 11/18/16 11/18/16 11/19/16 Range/Units 22:15 22:15 08:18 WBC 12.6 H (4.5-11.0) K/mm3 RBC 1.97 L (3.65-5.03) M/mm3 Hgb 6.8 L (11.8-15.2) gm/dl Hct 19.7 L* (35.5-45.6) % MCV 100 H (84-94) fl MCH 35 H (28-32) pg MCHC 35 H (32-34) % RDW 30.0 H (13.2-15.2) % Monocytes % (Manual) 9.0 H (0.0-7.3) % Eosinophils % (Manual) 5.0 H (0.0-4.3) % Nucleated RBC % 3.0 H (0.0-0.9) % Seg Neutrophils # Man 8.1 H (1.8-7.7) K/mm3 Monocytes # (Manual) 1.1 H (0.0-0.8) K/mm3 Eosinophils # (Manual) 0.6 H (0.0-0.4) K/mm3 Percent Retic 11.73 H (0.78-2.58) % Creatinine 0.4 L (0.8-1.5) mg/dL Crossmatch 11/19/16 11/19/16 Range/Units 08:18 10:31 WBC (4.5-11.0) K/mm3 RBC (3.65-5.03) M/mm3 Hgb (11.8-15.2) gm/dl Hct (35.5-45.6) % MCV (84-94) fl MCH (28-32) pg MCHC (32-34) % RDW (13.2-15.2) % Monocytes % (Manual) (0.0-7.3) % Eosinophils % (Manual) (0.0-4.3) % Nucleated RBC % (0.0-0.9) % Seg Neutrophils # Man (1.8-7.7) K/mm3 Monocytes # (Manual) (0.0-0.8) K/mm3 Eosinophils # (Manual) (0.0-0.4) K/mm3 Percent Retic (0.78-2.58) % Creatinine 0.3 L (0.8-1.5) mg/dL Crossmatch See Detail Assessment and Plan - Patient Problems (1) Sickle cell anemia with pain Current Visit: Yes Status: Acute Plan to address problem: Pain control. (2) Dehydration Current Visit: No Status: Acute Plan to address problem: hydration. (3) Pain Current Visit: Yes Status: Acute Plan to address problem: Pain control. (4) Iron overload due to repeated red blood cell transfusions Current Visit: Yes Status: Acute Plan to address problem: treat with desferol continue with chelation.
[2016-11-19] MEDS ORDERED: NACL 0.9% 500 ML 500 ML IV NR (18:09)
[2016-11-19 20:53] LABS: Reticulocyte % 9.68 % (0.78-2.58)
[2016-11-19 21:05] LABS: Anion Gap 16 mmol/L; Blood Urea Nitrogen 12 mg/dL (9-20); Calcium 8.8 mg/dL (8.4-10.2); Carbon Dioxide 26 mmol/L (22-30); Chloride 100.8 mmol/L (98-107); Glucose 84 mg/dL (75-100); Potassium 4.4 mmol/L (3.6-5.0); Sodium 138 mmol/L (137-145)
[2016-11-19] MEDS: NACL 0.45% 1000 ML 1,000 ML IV SCH (23:10)
[2016-11-20] MEDS: DILAUDID IV PRN ×6 (02:07→21:33)
[2016-11-20] MEDS: BENADRYL IV PRN ×4 (02:08→12:38)
[2016-11-20] MEDS: FOLVITE PO SCH (09:15)
[2016-11-20] MEDS: Desferal 3,000 MG in NACL 0.9% 250ML 250 ML IV SCH (11:38)
[2016-11-20] MEDS: NACL 0.9% 500 ML 500 ML IV SCH (13:47)
--- NOTE | 2016-11-20 14:11 | Consultation ---
History of Present Illness - Reason for Consult Consult date: 11/20/16 - History of Present Illness record/labs reviewed. tolerating desferol ok. Past History Past Medical History: anemia, other (sickle cell disease, E HF EF of 45%, hx of iron overload) Past Surgical History: Other (splenectomy, hernia surgery, cholecystectomy) Social history: no significant social history Family history: hypertension Medications and Allergies Allergies Allergy/AdvReac Type Severity Reaction Status Date / Time ceftriaxone sodium Allergy Unknown Verified 10/25/15 10:46 [From Rocephin] meperidine HCl [From Demerol] Allergy Unknown Verified 10/25/15 10:46 Home Medications Medication Instructions Recorded Confirmed Last Taken Type Folic Acid [Folvite] 1 mg PO QDAY 03/24/15 03/27/16 03/27/16 History Active Meds: Active Medications Acetaminophen (Tylenol) 650 mg PO Q4H PRN PRN Reason: Pain MILD(1-3)/Fever >100.5/SMITH Acetaminophen/Hydrocodone Bitart ([place] 5/325) 2 each PO Q6H PRN PRN Reason: Pain, Moderate (4-6) Bisacodyl (Dulcolax) 10 mg [place] QDAY PRN PRN Reason: Constipation unrelieved by MOM Diphenhydramine HCl (Benadryl) 12.5 mg IV Q3HR PRN PRN Reason: Itching Last Admin: 11/20/16 12:38 Dose: 12.5 mg Folic Acid (Folvite) 1 mg PO QDAY WAYNE Last Admin: 11/20/16 09:15 Dose: 1 mg Hydromorphone HCl (Dilaudid) 2 mg IV Q3H PRN PRN Reason: Pain , Severe (7-10) Last Admin: 11/20/16 12:38 Dose: 2 mg Sodium Chloride (Nacl 0.45% 1000 Ml) 1,000 mls @ 42 mls/hr IV DIRECT WAYNE Last Admin: 11/19/16 23:10 Dose: 42 mls/hr Deferoxamine Mesylate 3,000 mg (/ Sodium Chloride) 250 mls @ 32 mls/hr IV Q24HR WAYNE Last Admin: 11/20/16 11:38 Dose: 32 mls/hr Sodium Chloride (Nacl 0.9% 500 Ml) 500 mls @ 50 mls/hr IV DIRECT WAYNE Last Admin: 11/20/16 13:47 Dose: 50 mls/hr Magnesium Hydroxide (Milk Of Magnesia) 30 ml PO Q4H PRN PRN Reason: Constipation Ondansetron HCl (Zofran) 4 mg IV Q8H PRN PRN Reason: N/V unrelieved by Reglan Review of Systems Constitutional: chronic pain Musculoskeletal: low back pain Exam - Constitutional Vitals: Temp Pulse Resp BP Pulse Ox 98.1 F 60 16 125/81 99 11/20/16 11:13 11/20/16 11:13 11/20/16 11:13 11/20/16 11:13 11/20/16 11:13 General appearance: Present: mild distress, well-nourished - EENT Eyes: Present: PERRL ENT: hearing intact, clear oral mucosa - Neck Neck: Present: supple, normal ROM - Respiratory Respiratory effort: normal Respiratory: bilateral: CTA - Cardiovascular Heart Sounds: Present: S1 & S2. Absent: rub, click - Extremities Extremities: pulses symmetrical, No edema Peripheral Pulses: within normal limits - Abdominal General gastrointestinal: Present: soft, non-tender, non-distended, normal bowel sounds Male genitourinary: Present: deferred - Rectal Rectal Exam: deferred - Integumentary Integumentary: Present: clear, warm, dry - Musculoskeletal Musculoskeletal: gait normal, strength equal bilaterally - Psychiatric Psychiatric: appropriate mood/affect, intact judgment & insight - Neurologic Neurologic: CNII-XII intact, moves all extremities Results - Labs CBC & Chem 7: 11/19/16 08:18 11/19/16 20:26 Labs: Abnormal lab results 11/19/16 11/19/16 11/19/16 Range/Units 10:31 20:26 20:26 Percent Retic 9.68 H (0.78-2.58) % Creatinine 0.5 L D (0.8-1.5) mg/dL Crossmatch See Detail Assessment and Plan - Patient Problems (1) Sickle cell anemia with pain Current Visit: Yes Status: Acute Plan to address problem: Pain control. (2) Dehydration Current Visit: No Status: Acute Plan to address problem: hydration. (3) Pain Current Visit: Yes Status: Acute Plan to address problem: Pain control. (4) Iron overload due to repeated red blood cell transfusions Current Visit: Yes Status: Acute Plan to address problem: treat with desferol continue with chelation.
[2016-11-20] MEDS ORDERED: BENADRYL PO PRN (15:08)
--- NOTE | 2016-11-20 16:59 | Progress Note ---
Assessment and Plan Assessment and plan: 31-year-old male past medical history of sickle cell disease who presents with sickle cell pain crisis 1. Sickle cell pain crisis Pain medications and IV fluids have been ordered, will also obtain infectious workup to rule out infectious etiology to this crisis. UA and chest x-ray were negativ.. Hematology consult appreciated 2. Chronic hemolytic anemia Hemoglobin is currently stable, has received total of 2 units prbc 3. History of CHF, chronic systolic Patient does not appear to be in exacerbation, echo shows worsened EF of 25%, Cardiology consult for evaluation for ICD placement, optimize meds 4. DVT prophylaxis The molecular weight heparin 5. SIRS likely due to crisis, infection workup negative, including UA and CXR, rx underlying cause 6. Iron Overload continue deferoxamine Hospitalist Physical - Constitutional Vitals: Temp Pulse Resp BP Pulse Ox 98.1 F 60 16 125/81 99 11/20/16 11:13 11/20/16 11:13 11/20/16 11:13 11/20/16 11:13 11/20/16 11:13 General appearance: Present: mild distress, well-nourished Results - Labs CBC & Chem 7: 11/19/16 08:18 11/19/16 20:26 Labs: Laboratory Last Values WBC 12.6 K/mm3 (4.5-11.0) H 11/19/16 08:18 RBC 1.97 M/mm3 (3.65-5.03) L 11/19/16 08:18 Hgb 6.8 gm/dl (11.8-15.2) L 11/19/16 08:18 Hct 19.7 % (35.5-45.6) L* 11/19/16 08:18 MCV 100 fl (84-94) H 11/19/16 08:18 MCH 35 pg (28-32) H 11/19/16 08:18 MCHC 35 % (32-34) H 11/19/16 08:18 RDW 30.0 % (13.2-15.2) H 11/19/16 08:18 Plt Count 269 K/mm3 (140-440) 11/19/16 08:18 Add Manual Diff Complete 11/19/16 08:18 Total Counted 100 11/19/16 08:18 Seg Neuts % (Manual) 64.0 % (40.0-70.0) 11/19/16 08:18 Band Neutrophils % 0 % 11/19/16 08:18 Lymphocytes % (Manual) 22.0 % (13.4-35.0) 11/19/16 08:18 Reactive Lymphs % (Man) 0 % 11/19/16 08:18 Monocytes % (Manual) 9.0 % (0.0-7.3) H 11/19/16 08:18 Eosinophils % (Manual) 5.0 % (0.0-4.3) H 11/19/16 08:18 Basophils % (Manual) 0 % (0.0-1.8) 11/19/16 08:18 Metamyelocytes % 0 % 11/19/16 08:18 Myelocytes % 0 % 11/19/16 08:18 Promyelocytes % 0 % 11/19/16 08:18 Blast Cells % 0 % 11/19/16 08:18 Nucleated RBC % 3.0 % (0.0-0.9) H 11/19/16 08:18 Seg Neutrophils # Man 8.1 K/mm3 (1.8-7.7) H 11/19/16 08:18 Band Neutrophils # 0.0 K/mm3 11/19/16 08:18 Lymphocytes # (Manual) 2.8 K/mm3 (1.2-5.4) 11/19/16 08:18 Abs React Lymphs (Man) 0.0 K/mm3 11/19/16 08:18 Monocytes # (Manual) 1.1 K/mm3 (0.0-0.8) H 11/19/16 08:18 Eosinophils # (Manual) 0.6 K/mm3 (0.0-0.4) H 11/19/16 08:18 Basophils # (Manual) 0.0 K/mm3 (0.0-0.1) 11/19/16 08:18 Metamyelocytes # 0.0 K/mm3 11/19/16 08:18 Myelocytes # 0.0 K/mm3 11/19/16 08:18 Promyelocytes # 0.0 K/mm3 11/19/16 08:18 Blast Cells # 0.0 K/mm3 11/19/16 08:18 WBC Morphology Not Reportable 11/19/16 08:18 Hypersegmented Neuts Not Reportable 11/19/16 08:18 Hyposegmented Neuts Not Reportable 11/19/16 08:18 Hypogranular Neuts Not Reportable 11/19/16 08:18 Smudge Cells Not Reportable 11/19/16 08:18 Toxic Granulation Not Reportable 11/19/16 08:18 Toxic Vacuolation Not Reportable 11/19/16 08:18 Dohle Bodies Not Reportable 11/19/16 08:18 Pelger-Huet Anomaly Not Reportable 11/19/16 08:18 Christian Rods Not Reportable 11/19/16 08:18 Platelet Estimate Appears normal 11/19/16 08:18 Clumped Platelets Not Reportable 11/19/16 08:18 Plt Clumps, EDTA Not Reportable 11/19/16 08:18 Large Platelets Not Reportable 11/19/16 08:18 Giant Platelets Not Reportable 11/19/16 08:18 Platelet Satelliting Not Reportable 11/19/16 08:18 Plt Morphology Comment Not Reportable 11/19/16 08:18 RBC Morphology Not Reportable 11/19/16 08:18 Dimorphic RBCs Not Reportable 11/19/16 08:18 Polychromasia Few 11/19/16 08:18 Hypochromasia Not Reportable 11/19/16 08:18 Poikilocytosis Not Reportable 11/19/16 08:18 Anisocytosis 3+ 11/19/16 08:18 Microcytosis Not Reportable 11/19/16 08:18 Macrocytosis Not Reportable 11/19/16 08:18 Spherocytes Not Reportable 11/19/16 08:18 Pappenheimer Bodies Not Reportable 11/19/16 08:18 Sickle Cells 2+ 11/19/16 08:18 Target Cells Few 11/19/16 08:18 Tear Drop Cells Not Reportable 11/19/16 08:18 Ovalocytes Not Reportable 11/19/16 08:18 Stomatocytes Few 11/19/16 08:18 Helmet Cells Not Reportable 11/19/16 08:18 [place] Bodies Not Reportable 11/19/16 08:18 [place] Rings Not Reportable 11/19/16 08:18 [place] Cells Not Reportable 11/19/16 08:18 Bite Cells Not Reportable 11/19/16 08:18 Crenated Cell Not Reportable 11/19/16 08:18 Elliptocytes Not Reportable 11/19/16 08:18 Acanthocytes (Spur) Not Reportable 11/19/16 08:18 Rouleaux Not Reportable 11/19/16 08:18 Hemoglobin C Crystals Not Reportable 11/19/16 08:18 Schistocytes Not Reportable 11/19/16 08:18 Malaria parasites Not Reportable 11/19/16 08:18 Percent Retic 9.68 % (0.78-2.58) H 11/19/16 20:26 You Bodies Not Reportable 11/19/16 08:18 Hem Pathologist Commnt No 11/19/16 08:18 Sodium 138 mmol/L (137-145) 11/19/16 20:26 Potassium 4.4 mmol/L (3.6-5.0) 11/19/16 20:26 Chloride 100.8 mmol/L (98-107) 11/19/16 20:26 Carbon Dioxide 26 mmol/L (22-30) 11/19/16 20:26 Anion Gap 16 mmol/L 11/19/16 20:26 BUN 12 mg/dL (9-20) 11/19/16 20:26 Creatinine 0.5 mg/dL (0.8-1.5) L D 11/19/16 20:26 Estimated GFR > 60 ml/min 11/19/16 20:26 BUN/Creatinine Ratio 24.00 % 11/19/16 20:26 Glucose 84 mg/dL (75-100) 11/19/16 20:26 Calcium 8.8 mg/dL (8.4-10.2) 11/19/16 20:26 Urine Color Yellow (Yellow) 11/18/16 11:25 Urine Turbidity Clear (Clear) 11/18/16 11:25 Urine pH 5.0 (5.0-7.0) 11/18/16 11:25 Ur Specific [place] 1.010 (1.003-1.030) 11/18/16 11:25 Urine Protein 30 mg/dl mg/dL (Negative) 11/18/16 11:25 Urine Glucose (UA) Neg mg/dL (Negative) 11/18/16 11:25 Urine Ketones Neg mg/dL (Negative) 11/18/16 11:25 Urine Blood Sm (Negative) 11/18/16 11:25 Urine Nitrite Neg (Negative) 11/18/16 11:25 Urine Bilirubin Neg (Negative) 11/18/16 11:25 Urine Urobilinogen < 2.0 mg/dL (<2.0) 11/18/16 11:25 Ur Leukocyte Esterase Neg (Negative) 11/18/16 11:25 Urine WBC (Auto) < 1.0 /HPF (0.0-6.0) 11/18/16 11:25 Urine RBC (Auto) 5.0 /HPF (0.0-6.0) 11/18/16 11:25 Urine Bacteria (Auto) 1+ /HPF (Negative) 11/18/16 11:25 Urine Mucus Few /HPF 11/18/16 11:25 Blood Type O POSITIVE 11/19/16 10:31 Antibody Screen Negative 11/19/16 10:31 Crossmatch See Detail 11/19/16 10:31
[2016-11-21] MEDS: BENADRYL IV PRN ×8 (00:34→23:47)
[2016-11-21] MEDS: DILAUDID IV PRN ×8 (00:35→23:46)
[2016-11-21 05:15] LABS: Reticulocyte % 9.34 % (0.78-2.58)
[2016-11-21 05:39] LABS: Anion Gap 16 mmol/L; Blood Urea Nitrogen 10 mg/dL (9-20); Calcium 6.8 mg/dL (8.4-10.2); Carbon Dioxide 21 mmol/L (22-30); Chloride 98.9 mmol/L (98-107); Glucose 71 mg/dL (75-100); Potassium 3.5 mmol/L (3.6-5.0); Sodium 132 mmol/L (137-145)
--- NOTE | 2016-11-21 06:51 | Progress Note ---
Assessment and Plan - Patient Problems (1) Congestive heart failure (CHF) Current Visit: Yes Status: Acute Qualifiers: Congestive heart failure type: C Congestive heart failure chronicity: C Plan to address problem: History of CHF, chronic systolic Patient does not appear to be in exacerbation, echo shows worsened EF of 25%, Cardiology consult for evaluation for ICD placement, optimize meds (2) Iron overload due to repeated red blood cell transfusions Current Visit: Yes Status: Acute Plan to address problem: Iron overload ---continue deferoxamine (3) Iron overload Current Visit: No Status: Chronic (4) Sickle cell anemia Current Visit: No Status: Chronic Qualifiers: Sickle-cell associated disorders: S Plan to address problem: 1. Sickle cell pain crisis Pain medications and IV fluids have been ordered, will also obtain infectious workup to rule out infectious etiology to this crisis. UA and chest x-ray were negativ.. Hematology consult appreciated History Interval history: Patient lying in bed resting comfortably. Patient was awake and he admitted to have pain Hospitalist Physical - Constitutional Vitals: Temp Pulse Resp BP Pulse Ox 98.1 F 60 18 140/81 99 11/21/16 01:50 11/21/16 01:50 11/21/16 04:07 11/21/16 01:50 11/21/16 01:50 General appearance: Present: no acute distress, well-nourished - EENT Eyes: Present: PERRL, EOM intact ENT: hearing intact, clear oral mucosa - Neck Neck: Present: supple, normal ROM - Respiratory Respiratory effort: normal Respiratory: bilateral: CTA - Cardiovascular Rhythm: regular Heart Sounds: Present: S1 & S2 - Extremities Extremities: no ischemia, No edema - Abdominal General gastrointestinal: soft, non-tender, non-distended, normal bowel sounds - Psychiatric Psychiatric: appropriate mood/affect, intact judgment & insight - Neurologic Neurologic: CNII-XII intact, moves all extremities Results - Labs CBC & Chem 7: 11/19/16 08:18 11/21/16 04:45 Labs: Laboratory Last Values WBC 12.6 K/mm3 (4.5-11.0) H 11/19/16 08:18 RBC 1.97 M/mm3 (3.65-5.03) L 11/19/16 08:18 Hgb 6.8 gm/dl (11.8-15.2) L 11/19/16 08:18 Hct 19.7 % (35.5-45.6) L* 11/19/16 08:18 MCV 100 fl (84-94) H 11/19/16 08:18 MCH 35 pg (28-32) H 11/19/16 08:18 MCHC 35 % (32-34) H 11/19/16 08:18 RDW 30.0 % (13.2-15.2) H 11/19/16 08:18 Plt Count 269 K/mm3 (140-440) 11/19/16 08:18 Add Manual Diff Complete 11/19/16 08:18 Total Counted 100 11/19/16 08:18 Seg Neuts % (Manual) 64.0 % (40.0-70.0) 11/19/16 08:18 Band Neutrophils % 0 % 11/19/16 08:18 Lymphocytes % (Manual) 22.0 % (13.4-35.0) 11/19/16 08:18 Reactive Lymphs % (Man) 0 % 11/19/16 08:18 Monocytes % (Manual) 9.0 % (0.0-7.3) H 11/19/16 08:18 Eosinophils % (Manual) 5.0 % (0.0-4.3) H 11/19/16 08:18 Basophils % (Manual) 0 % (0.0-1.8) 11/19/16 08:18 Metamyelocytes % 0 % 11/19/16 08:18 Myelocytes % 0 % 11/19/16 08:18 Promyelocytes % 0 % 11/19/16 08:18 Blast Cells % 0 % 11/19/16 08:18 Nucleated RBC % 3.0 % (0.0-0.9) H 11/19/16 08:18 Seg Neutrophils # Man 8.1 K/mm3 (1.8-7.7) H 11/19/16 08:18 Band Neutrophils # 0.0 K/mm3 11/19/16 08:18 Lymphocytes # (Manual) 2.8 K/mm3 (1.2-5.4) 11/19/16 08:18 Abs React Lymphs (Man) 0.0 K/mm3 11/19/16 08:18 Monocytes # (Manual) 1.1 K/mm3 (0.0-0.8) H 11/19/16 08:18 Eosinophils # (Manual) 0.6 K/mm3 (0.0-0.4) H 11/19/16 08:18 Basophils # (Manual) 0.0 K/mm3 (0.0-0.1) 11/19/16 08:18 Metamyelocytes # 0.0 K/mm3 11/19/16 08:18 Myelocytes # 0.0 K/mm3 11/19/16 08:18 Promyelocytes # 0.0 K/mm3 11/19/16 08:18 Blast Cells # 0.0 K/mm3 11/19/16 08:18 WBC Morphology Not Reportable 11/19/16 08:18 Hypersegmented Neuts Not Reportable 11/19/16 08:18 Hyposegmented Neuts Not Reportable 11/19/16 08:18 Hypogranular Neuts Not Reportable 11/19/16 08:18 Smudge Cells Not Reportable 11/19/16 08:18 Toxic Granulation Not Reportable 11/19/16 08:18 Toxic Vacuolation Not Reportable 11/19/16 08:18 Dohle Bodies Not Reportable 11/19/16 08:18 Pelger-Huet Anomaly Not Reportable 11/19/16 08:18 Christian Rods Not Reportable 11/19/16 08:18 Platelet Estimate Appears normal 11/19/16 08:18 Clumped Platelets Not Reportable 11/19/16 08:18 Plt Clumps, EDTA Not Reportable 11/19/16 08:18 Large Platelets Not Reportable 11/19/16 08:18 Giant Platelets Not Reportable 11/19/16 08:18 Platelet Satelliting Not Reportable 11/19/16 08:18 Plt Morphology Comment Not Reportable 11/19/16 08:18 RBC Morphology Not Reportable 11/19/16 08:18 Dimorphic RBCs Not Reportable 11/19/16 08:18 Polychromasia Few 11/19/16 08:18 Hypochromasia Not Reportable 11/19/16 08:18 Poikilocytosis Not Reportable 11/19/16 08:18 Anisocytosis 3+ 11/19/16 08:18 Microcytosis Not Reportable 11/19/16 08:18 Macrocytosis Not Reportable 11/19/16 08:18 Spherocytes Not Reportable 11/19/16 08:18 Pappenheimer Bodies Not Reportable 11/19/16 08:18 Sickle Cells 2+ 11/19/16 08:18 Target Cells Few 11/19/16 08:18 Tear Drop Cells Not Reportable 11/19/16 08:18 Ovalocytes Not Reportable 11/19/16 08:18 Stomatocytes Few 11/19/16 08:18 Helmet Cells Not Reportable 11/19/16 08:18 [place] Bodies Not Reportable 11/19/16 08:18 [place] Rings Not Reportable 11/19/16 08:18 Nolberto Cells Not Reportable 11/19/16 08:18 Bite Cells Not Reportable 11/19/16 08:18 Crenated Cell Not Reportable 11/19/16 08:18 Elliptocytes Not Reportable 11/19/16 08:18 Acanthocytes (Spur) Not Reportable 11/19/16 08:18 Rouleaux Not Reportable 11/19/16 08:18 Hemoglobin C Crystals Not Reportable 11/19/16 08:18 Schistocytes Not Reportable 11/19/16 08:18 Malaria parasites Not Reportable 11/19/16 08:18 Percent Retic 9.34 % (0.78-2.58) H 11/21/16 04:45 You Bodies Not Reportable 11/19/16 08:18 Hem Pathologist Commnt No 11/19/16 08:18 Sodium 132 mmol/L (137-145) L 11/21/16 04:45 Potassium 3.5 mmol/L (3.6-5.0) L D 11/21/16 04:45 Chloride 98.9 mmol/L (98-107) 11/21/16 04:45 Carbon Dioxide 21 mmol/L (22-30) L 11/21/16 04:45 Anion Gap 16 mmol/L 11/21/16 04:45 BUN 10 mg/dL (9-20) 11/21/16 04:45 Creatinine 0.2 mg/dL (0.8-1.5) L D 11/21/16 04:45 Estimated GFR > 60 ml/min 11/21/16 04:45 BUN/Creatinine Ratio 50.00 % 11/21/16 04:45 Glucose 71 mg/dL (75-100) L 11/21/16 04:45 Calcium 6.8 mg/dL (8.4-10.2) L D 11/21/16 04:45 Urine Color Yellow (Yellow) 11/18/16 11:25 Urine Turbidity Clear (Clear) 11/18/16 11:25 Urine pH 5.0 (5.0-7.0) 11/18/16 11:25 Ur Specific [place] 1.010 (1.003-1.030) 11/18/16 11:25 Urine Protein 30 mg/dl mg/dL (Negative) 11/18/16 11:25 Urine Glucose (UA) Neg mg/dL (Negative) 11/18/16 11:25 Urine Ketones Neg mg/dL (Negative) 11/18/16 11:25 Urine Blood Sm (Negative) 11/18/16 11:25 Urine Nitrite Neg (Negative) 11/18/16 11:25 Urine Bilirubin Neg (Negative) 11/18/16 11:25 Urine Urobilinogen < 2.0 mg/dL (<2.0) 11/18/16 11:25 Ur Leukocyte Esterase Neg (Negative) 11/18/16 11:25 Urine WBC (Auto) < 1.0 /HPF (0.0-6.0) 11/18/16 11:25 Urine RBC (Auto) 5.0 /HPF (0.0-6.0) 11/18/16 11:25 Urine Bacteria (Auto) 1+ /HPF (Negative) 11/18/16 11:25 Urine Mucus Few /HPF 11/18/16 11:25 Blood Type O POSITIVE 11/19/16 10:31 Antibody Screen Negative 11/19/16 10:31 Crossmatch See Detail 11/19/16 10:31
--- NOTE | 2016-11-21 07:53 | Consultation ---
History of Present Illness Consult date: 11/21/16 Consult reason: congestive heart failure History of present illness: 31-year-old male with past medical history of sickle cell disease and CHF EF of 40-45% presented with a complaint of generalized body pain. He notes that the pain is sharp, deep pain in his bones, 10 out of 10 and all over his body, pain is worse in the joints of his lower extremities bilaterally. Patient has had this pain many times over many years as he was diagnosed with sickle cell anemia as a child. Patient also notes that he has had heart failure since the age of 11. Patient denies any orthopnea, pnd, palpitations, dizziness, chest pain, SOB or syncope. Past History Past Medical History: anemia, other (sickle cell disease, E HF EF of 45%, hx of iron overload) Past Surgical History: Other (splenectomy, hernia surgery, cholecystectomy) Social history: no significant social history Family history: hypertension Medications and Allergies Allergies Allergy/AdvReac Type Severity Reaction Status Date / Time ceftriaxone sodium Allergy Unknown Verified 10/25/15 10:46 [From Rocephin] meperidine HCl [From Demerol] Allergy Unknown Verified 10/25/15 10:46 Home Medications Medication Instructions Recorded Confirmed Last Taken Type Folic Acid [Folvite] 1 mg PO QDAY 03/24/15 03/27/16 03/27/16 History Active Meds: Active Medications Acetaminophen (Tylenol) 650 mg PO Q4H PRN PRN Reason: Pain MILD(1-3)/Fever >100.5/SMITH Bisacodyl (Dulcolax) [address] QDAY PRN PRN Reason: Constipation unrelieved by MOM Diphenhydramine HCl (Benadryl) 12.5 mg IV Q3H PRN PRN Reason: Itching Last Admin: 11/21/16 04:08 Dose: 12.5 mg Folic Acid (Folvite) 1 mg PO QDAY WAYNE Last Admin: 11/20/16 09:15 Dose: 1 mg Hydromorphone HCl (Dilaudid) 2 mg IV Q3H PRN PRN Reason: Pain , Severe (7-10) Last Admin: 11/21/16 04:07 Dose: 2 mg Sodium Chloride (Nacl 0.45% 1000 Ml) 1,000 mls @ 42 mls/hr IV DIRECT WAYNE Last Admin: 11/19/16 23:10 Dose: 42 mls/hr Deferoxamine Mesylate 3,000 mg (/ Sodium Chloride) 250 mls @ 32 mls/hr IV Q24HR WAYNE Last Admin: 11/20/16 11:38 Dose: 32 mls/hr Sodium Chloride (Nacl 0.9% 500 Ml) 500 mls @ 50 mls/hr IV DIRECT WAYNE Last Admin: 11/20/16 13:47 Dose: 50 mls/hr Magnesium Hydroxide (Milk Of Magnesia) 30 ml PO Q4H PRN PRN Reason: Constipation Ondansetron HCl (Zofran) 4 mg IV Q8H PRN PRN Reason: N/V unrelieved by Reglan Review of Systems All systems: negative Physical Examination Vital Signs Temp Pulse Resp BP Pulse Ox 98.2 F 64 16 127/77 98 11/18/16 02:30 11/18/16 02:30 11/18/16 02:30 11/18/16 02:30 11/18/16 02:30 General appearance: no acute distress HEENT: Positive: PERRL, EOMI Neck: Positive: neck supple Cardiac: Positive: Reg Rate and Rhythm Lungs: Positive: clear to auscultation Neuro: Positive: Grossly Intact Abdomen: Positive: Soft Extremities: Present: normal. Absent: edema Results 11/19/16 08:18 11/21/16 04:45 Comprehensive Metabolic Panel 11/21/16 Range/Units 04:45 Sodium 132 L (137-145) mmol/L Potassium 3.5 L D (3.6-5.0) mmol/L Chloride 98.9 (98-107) mmol/L Carbon Dioxide 21 L (22-30) mmol/L BUN 10 (9-20) mg/dL Creatinine 0.2 L D (0.8-1.5) mg/dL Glucose 71 L (75-100) mg/dL Calcium 6.8 L D (8.4-10.2) mg/dL EKG interpretations - Telemetry EKG Rhythm: Sinus Rhythm Assessment and Plan 1. Sickle cell pain crisis - management per primary. On pain medications and IVF 2. Chronic hemolytic anemia 3. History of CHF, chronic systolic Patient is not currently in CHF exacerbation either by history or physical exam. Last known EF 40-45%. Echo pending. Patient is on carvedilol at home. Continue. No ACEi has patient has a history of hyperkalemia with potassium.
[2016-11-21] MEDS: FOLVITE PO SCH (10:53)
[2016-11-21] MEDS: COREG PO SCH ×2 (10:53→23:48)
[2016-11-21] MEDS: Desferal 3,000 MG in NACL 0.9% 250ML 250 ML IV SCH (11:11)
[2016-11-21] MEDS: NACL 0.9% 500 ML 500 ML IV SCH (21:22)
[2016-11-22] MEDS: BENADRYL IV PRN ×6 (03:03→22:34)
[2016-11-22] MEDS: DILAUDID IV PRN ×6 (03:04→22:34)
[2016-11-22 05:13] LABS: Alanine Aminotransferase 65 units/L (7-56); Albumin 4.3 g/dL (3.9-5); Albumin/Globulin Ratio 1.5 %; Alkaline Phosphatase 126 units/L (35-129); Anion Gap 17 mmol/L; BUN/Creatinine Ratio 53.33; Bilirubin,Total 5.3 mg/dL (0.1-1.2); Blood Urea Nitrogen 16 mg/dL (9-20); Calcium 8.8 mg/dL (8.4-10.2); Carbon Dioxide 25 mmol/L (22-30); Chloride 99.2 mmol/L (98-107); Glucose 92 mg/dL (75-100); Sodium 136 mmol/L (137-145); Total Protein 7.2 g/dL (6.3-8.2)
[2016-11-22 05:21] LABS: Potassium 4.7 mmol/L (3.6-5.0)
[2016-11-22 05:39] LABS: Hematocrit 31.4 % (35.5-45.6); Hemoglobin 10.8 gm/dl (11.8-15.2); Mean Corpuscular HGB Conc 35 % (32-34); Mean Corpuscular Hemoglobin 32 pg (28-32); Mean Corpuscular Volume 94 fl (84-94); Platelet Count 271 K/mm3 (140-440); Red Blood Count 3.35 M/mm3 (3.65-5.03); White Blood Count 9.6 K/mm3 (4.5-11.0)
[2016-11-22 05:48] LABS: Red Cell Distribution Width 25.8 % (13.2-15.2)
[2016-11-22 06:54] LABS: Anisocytosis 2+; Basophils % (Manual) 0 % (0.0-1.8); Blastocytes % (Manual) 0 %; Polychromasia Few; Sickle Cells 2+; Stomatocytes Few
[2016-11-22 06:55] LABS: Diff Status Complete; Target Cells Few
[2016-11-22 07:41] LABS: Reticulocyte % 6.85 % (0.78-2.58)
--- NOTE | 2016-11-22 07:48 | Progress Note ---
Assessment and Plan - Patient Problems (1) Congestive heart failure (CHF) Current Visit: Yes Status: Acute Qualifiers: Congestive heart failure type: C Congestive heart failure chronicity: C Plan to address problem: History of CHF, chronic systolic Patient does not appear to be in exacerbation, echo shows worsened EF of 25%, Cardiology consult for evaluation for ICD placement, optimize meds (2) Iron overload due to repeated red blood cell transfusions Current Visit: Yes Status: Acute Plan to address problem: Iron overload ---continue deferoxamine (3) Iron overload Current Visit: No Status: Chronic (4) Sickle cell anemia Current Visit: No Status: Chronic Qualifiers: Sickle-cell associated disorders: S Plan to address problem: Patient will continue pain medication and IV fluid as ordered. Hematology consult appreciated. will also obtain infectious workup to rule out infectious etiology to this crisis. UA and chest x-ray were negative History Interval history: Patient lying in bed resting comfortably. Patient was awakened and he admitted to have pain Hospitalist Physical - Constitutional Vitals: Temp Pulse Resp BP Pulse Ox 98.7 F 89 20 140/85 98 11/21/16 23:57 11/21/16 23:57 11/22/16 03:04 11/21/16 23:57 11/21/16 23:57 General appearance: Present: no acute distress, well-nourished - EENT Eyes: Present: PERRL, EOM intact ENT: hearing intact, clear oral mucosa - Neck Neck: Present: supple, normal ROM - Respiratory Respiratory effort: normal Respiratory: bilateral: CTA - Cardiovascular Rhythm: regular Heart Sounds: Present: S1 & S2 - Extremities Extremities: no ischemia, No edema - Abdominal General gastrointestinal: soft, non-tender, non-distended, normal bowel sounds - Psychiatric Psychiatric: appropriate mood/affect, intact judgment & insight - Neurologic Neurologic: CNII-XII intact, moves all extremities Results - Labs CBC & Chem 7: 11/22/16 04:30 11/22/16 04:30 Labs: Laboratory Last Values WBC 9.6 K/mm3 (4.5-11.0) 11/22/16 04:30 RBC 3.35 M/mm3 (3.65-5.03) L 11/22/16 04:30 Hgb 10.8 gm/dl (11.8-15.2) L D 11/22/16 04:30 Hct 31.4 % (35.5-45.6) L D 11/22/16 04:30 MCV 94 fl (84-94) D 11/22/16 04:30 MCH 32 pg (28-32) 11/22/16 04:30 MCHC 35 % (32-34) H 11/22/16 04:30 RDW 25.8 % (13.2-15.2) H 11/22/16 04:30 Plt Count 271 K/mm3 (140-440) 11/22/16 04:30 [place] % (Auto) Molded Parts Inspector 11/22/16 04:30 Lymph # Molded Parts Inspector 11/22/16 04:30 Add Manual Diff Complete 11/22/16 04:30 Total Counted 100 11/22/16 04:30 Seg Neutrophils % Molded Parts Inspector 11/22/16 04:30 Seg Neuts % (Manual) 50.0 % (40.0-70.0) 11/22/16 04:30 Band Neutrophils % 0 % 11/22/16 04:30 Lymphocytes % (Manual) 29.0 % (13.4-35.0) 11/22/16 04:30 Reactive Lymphs % (Man) 0 % 11/22/16 04:30 Monocytes % (Manual) 16.0 % (0.0-7.3) H 11/22/16 04:30 Eosinophils % (Manual) 5.0 % (0.0-4.3) H 11/22/16 04:30 Basophils % (Manual) 0 % (0.0-1.8) 11/22/16 04:30 Metamyelocytes % 0 % 11/22/16 04:30 Myelocytes % 0 % 11/22/16 04:30 Promyelocytes % 0 % 11/22/16 04:30 Blast Cells % 0 % 11/22/16 04:30 Nucleated RBC % Not Reportable 11/22/16 04:30 Seg Neutrophils # Man 4.8 K/mm3 (1.8-7.7) 11/22/16 04:30 Band Neutrophils # 0.0 K/mm3 11/22/16 04:30 Lymphocytes # (Manual) 2.8 K/mm3 (1.2-5.4) 11/22/16 04:30 Abs React Lymphs (Man) 0.0 K/mm3 11/22/16 04:30 Monocytes # (Manual) 1.5 K/mm3 (0.0-0.8) H 11/22/16 04:30 Eosinophils # (Manual) 0.5 K/mm3 (0.0-0.4) H 11/22/16 04:30 Basophils # (Manual) 0.0 K/mm3 (0.0-0.1) 11/22/16 04:30 Metamyelocytes # 0.0 K/mm3 11/22/16 04:30 Myelocytes # 0.0 K/mm3 11/22/16 04:30 Promyelocytes # 0.0 K/mm3 11/22/16 04:30 Blast Cells # 0.0 K/mm3 11/22/16 04:30 WBC Morphology Not Reportable 11/22/16 04:30 Hypersegmented Neuts Not Reportable 11/22/16 04:30 Hyposegmented Neuts Not Reportable 11/22/16 04:30 Hypogranular Neuts Not Reportable 11/22/16 04:30 Smudge Cells Not Reportable 11/22/16 04:30 Toxic Granulation Not Reportable 11/22/16 04:30 Toxic Vacuolation Not Reportable 11/22/16 04:30 Dohle Bodies Not Reportable 11/22/16 04:30 Pelger-Huet Anomaly Not Reportable 11/22/16 04:30 Christian Rods Not Reportable 11/22/16 04:30 Platelet Estimate Appears normal 11/22/16 04:30 Clumped Platelets Not Reportable 11/22/16 04:30 Plt Clumps, EDTA Not Reportable 11/22/16 04:30 Large Platelets Not Reportable 11/22/16 04:30 Giant Platelets Not Reportable 11/22/16 04:30 Platelet Satelliting Not Reportable 11/22/16 04:30 Plt Morphology Comment Not Reportable 11/22/16 04:30 RBC Morphology Not Reportable 11/22/16 04:30 Dimorphic RBCs Not Reportable 11/22/16 04:30 Polychromasia Few 11/22/16 04:30 Hypochromasia Not Reportable 11/22/16 04:30 Poikilocytosis Not Reportable 11/22/16 04:30 Anisocytosis 2+ 11/22/16 04:30 Microcytosis Not Reportable 11/22/16 04:30 Macrocytosis Not Reportable 11/22/16 04:30 Spherocytes Not Reportable 11/22/16 04:30 Pappenheimer Bodies Not Reportable 11/22/16 04:30 Sickle Cells 2+ 11/22/16 04:30 Target Cells Few 11/22/16 04:30 Tear Drop Cells Not Reportable 11/22/16 04:30 Ovalocytes Not Reportable 11/22/16 04:30 Stomatocytes Few 11/22/16 04:30 Helmet Cells Not Reportable 11/22/16 04:30 [place] Bodies Not Reportable 11/22/16 04:30 [place] Rings Not Reportable 11/22/16 04:30 Nolberto Cells Not Reportable 11/22/16 04:30 Bite Cells Not Reportable 11/22/16 04:30 Crenated Cell Not Reportable 11/22/16 04:30 Elliptocytes Not Reportable 11/22/16 04:30 Acanthocytes (Spur) Not Reportable 11/22/16 04:30 Rouleaux Not Reportable 11/22/16 04:30 Hemoglobin C Crystals Not Reportable 11/22/16 04:30 Schistocytes Not Reportable 11/22/16 04:30 Malaria parasites Not Reportable 11/22/16 04:30 Percent Retic 6.85 % (0.78-2.58) H 11/22/16 04:30 You Bodies Not Reportable 11/22/16 04:30 Hem Pathologist Commnt No 11/22/16 04:30 Sodium 136 mmol/L (137-145) L 11/22/16 04:30 Potassium 4.7 mmol/L (3.6-5.0) D 11/22/16 04:30 Chloride 99.2 mmol/L (98-107) 11/22/16 04:30 Carbon Dioxide 25 mmol/L (22-30) 11/22/16 04:30 Anion Gap 17 mmol/L 11/22/16 04:30 BUN 16 mg/dL (9-20) 11/22/16 04:30 Creatinine 0.3 mg/dL (0.8-1.5) L 11/22/16 04:30 Estimated GFR > 60 ml/min 11/22/16 04:30 BUN/Creatinine Ratio 53.33 % 11/22/16 04:30 Glucose 92 mg/dL (75-100) 11/22/16 04:30 Calcium 8.8 mg/dL (8.4-10.2) D 11/22/16 04:30 Total Bilirubin 5.3 mg/dL (0.1-1.2) H 11/22/16 04:30 AST 76 units/L (5-40) H 11/22/16 04:30 ALT 65 units/L (7-56) H 11/22/16 04:30 Alkaline Phosphatase 126 units/L (35-129) 11/22/16 04:30 Total Protein 7.2 g/dL (6.3-8.2) 11/22/16 04:30 Albumin 4.3 g/dL (3.9-5) 11/22/16 04:30 Albumin/Globulin Ratio 1.5 % 11/22/16 04:30 Urine Color Yellow (Yellow) 11/18/16 11:25 Urine Turbidity Clear (Clear) 11/18/16 11:25 Urine pH 5.0 (5.0-7.0) 11/18/16 11:25 Ur Specific [place] 1.010 (1.003-1.030) 11/18/16 11:25 Urine Protein 30 mg/dl mg/dL (Negative) 11/18/16 11:25 Urine Glucose (UA) Neg mg/dL (Negative) 11/18/16 11:25 Urine Ketones Neg mg/dL (Negative) 11/18/16 11:25 Urine Blood Sm (Negative) 11/18/16 11:25 Urine Nitrite Neg (Negative) 11/18/16 11:25 Urine Bilirubin Neg (Negative) 11/18/16 11:25 Urine Urobilinogen < 2.0 mg/dL (<2.0) 11/18/16 11:25 Ur Leukocyte Esterase Neg (Negative) 11/18/16 11:25 Urine WBC (Auto) < 1.0 /HPF (0.0-6.0) 11/18/16 11:25 Urine RBC (Auto) 5.0 /HPF (0.0-6.0) 11/18/16 11:25 Urine Bacteria (Auto) 1+ /HPF (Negative) 11/18/16 11:25 Urine Mucus Few /HPF 11/18/16 11:25 Blood Type O POSITIVE 11/19/16 10:31 Antibody Screen Negative 11/19/16 10:31 Crossmatch See Detail 11/19/16 10:31
--- NOTE | 2016-11-22 07:57 | Progress Note ---
Assessment and Plan 1. Sickle cell pain crisis - management per primary. On pain medications and IVF 2. Chronic hemolytic anemia 3. History of CHF, chronic systolic - Patient is not currently in CHF exacerbation either by history or physical exam. Last known EF 40-45%. Echo pending for re-evaluation of LV function. Patient is on carvedilol at home. Continue current therapy. No ACEi has patient has a history of hyperkalemia with potassium. Subjective Date of service: 11/22/16 Interval history: No acute events. Resting comfortably. No chest pain or SOB. Objective Vital Signs Temp Pulse Pulse Resp BP BP Pulse Ox 11/22/16 03:04 20 11/21/16 23:57 98.7 F 89 22 140/85 98 11/21/16 23:48 57 L 144/86 11/21/16 15:51 98.2 F 62 18 126/69 98 11/21/16 08:00 98.3 F 65 18 130/78 98 - Physical Examination HEENT: Positive: PERRL, EOMI Neck: Positive: neck supple Neuro: Positive: Grossly Intact Abdomen: Positive: Soft Extremities: Present: normal. Absent: edema - Labs and Meds Cardiac Enzymes 11/22/16 Range/Units 04:30 AST 76 H (5-40) units/L CBC 11/22/16 Range/Units 04:30 WBC 9.6 (4.5-11.0) K/mm3 RBC 3.35 L (3.65-5.03) M/mm3 Hgb 10.8 L D (11.8-15.2) gm/dl Hct 31.4 L D (35.5-45.6) % Plt Count 271 (140-440) K/mm3 Lymph # Hematologist Comprehensive Metabolic Panel 11/22/16 Range/Units 04:30 Sodium 136 L (137-145) mmol/L Potassium 4.7 D (3.6-5.0) mmol/L Chloride 99.2 (98-107) mmol/L Carbon Dioxide 25 (22-30) mmol/L BUN 16 (9-20) mg/dL Creatinine 0.3 L (0.8-1.5) mg/dL Glucose 92 (75-100) mg/dL Calcium 8.8 D (8.4-10.2) mg/dL AST 76 H (5-40) units/L ALT 65 H (7-56) units/L Alkaline Phosphatase 126 (35-129) units/L Total Protein 7.2 (6.3-8.2) g/dL Albumin 4.3 (3.9-5) g/dL
[2016-11-22] MEDS: FOLVITE PO SCH (10:35)
[2016-11-22] MEDS: COREG PO SCH ×2 (10:36→21:27)
[2016-11-22] MEDS: Desferal 3,000 MG in NACL 0.9% 250ML 250 ML IV SCH (10:37)
--- NOTE | 2016-11-22 16:19 | Consultation ---
History of Present Illness - Reason for Consult Consult date: 11/22/16 - History of Present Illness Record reviewed, including labs. Desferol tx going on ok.He should be nearing finishing the 5th , and last dose, and should be ready for d/c home if remain stable. Past History Past Medical History: anemia, other (sickle cell disease, E HF EF of 45%, hx of iron overload) Past Surgical History: Other (splenectomy, hernia surgery, cholecystectomy) Social history: no significant social history Family history: hypertension Medications and Allergies Allergies Allergy/AdvReac Type Severity Reaction Status Date / Time ceftriaxone sodium Allergy Unknown Verified 10/25/15 10:46 [From Rocephin] meperidine HCl [From Demerol] Allergy Unknown Verified 10/25/15 10:46 Home Medications Medication Instructions Recorded Confirmed Last Taken Type Folic Acid [Folvite] 1 mg PO QDAY 03/24/15 03/27/16 03/27/16 History Active Meds: Active Medications Acetaminophen (Tylenol) 650 mg PO Q4H PRN PRN Reason: Pain MILD(1-3)/Fever >100.5/SMITH Bisacodyl (Dulcolax) 10 mg [place] QDAY PRN PRN Reason: Constipation unrelieved by MOM Carvedilol (Coreg) 3.125 mg PO BID [facility] Last Admin: 11/22/16 10:36 Dose: 3.125 mg Diphenhydramine HCl (Benadryl) 12.5 mg IV Q3H PRN PRN Reason: Itching Last Admin: 11/22/16 13:26 Dose: 12.5 mg Folic Acid (Folvite) 1 mg PO QDAY [facility] Last Admin: 11/22/16 10:35 Dose: 1 mg Hydromorphone HCl (Dilaudid) 2 mg IV Q3H PRN PRN Reason: Pain , Severe (7-10) Last Admin: 11/22/16 13:26 Dose: 2 mg Sodium Chloride (Nacl 0.45% 1000 Ml) 1,000 mls @ 42 mls/hr IV DIRECT [facility] Last Admin: 11/19/16 23:10 Dose: 42 mls/hr Deferoxamine Mesylate 3,000 mg (/ Sodium Chloride) 250 mls @ 32 mls/hr IV Q24HR [facility] Last Admin: 11/22/16 10:37 Dose: 32 mls/hr Sodium Chloride (Nacl 0.9% 500 Ml) 500 mls @ 50 mls/hr IV DIRECT [facility] Last Admin: 11/21/16 21:22 Dose: 50 mls/hr Magnesium Hydroxide (Milk Of Magnesia) 30 ml PO Q4H PRN PRN Reason: Constipation Ondansetron HCl (Zofran) 4 mg IV Q8H PRN PRN Reason: N/V unrelieved by Reglan Review of Systems Constitutional: chronic pain Musculoskeletal: low back pain Exam - Constitutional Vitals: Temp Pulse Resp BP Pulse Ox 97.8 F 70 18 120/72 99 11/22/16 08:00 11/22/16 10:36 11/22/16 08:00 11/22/16 10:36 11/22/16 08:00 General appearance: Present: mild distress, well-nourished - EENT Eyes: Present: PERRL ENT: hearing intact, clear oral mucosa - Neck Neck: Present: supple, normal ROM - Respiratory Respiratory effort: normal Respiratory: bilateral: CTA - Cardiovascular Heart Sounds: Present: S1 & S2. Absent: rub, click - Extremities Extremities: pulses symmetrical, No edema Peripheral Pulses: within normal limits - Abdominal General gastrointestinal: Present: soft, non-tender, non-distended, normal bowel sounds Male genitourinary: Present: deferred - Rectal Rectal Exam: deferred - Integumentary Integumentary: Present: clear, warm, dry - Musculoskeletal Musculoskeletal: gait normal, strength equal bilaterally - Psychiatric Psychiatric: appropriate mood/affect, intact judgment & insight - Neurologic Neurologic: CNII-XII intact, moves all extremities Results - Labs CBC & Chem 7: 11/22/16 04:30 11/22/16 04:30 Labs: Abnormal lab results 11/22/16 11/22/16 11/22/16 Range/Units 04:30 04:30 04:30 RBC 3.35 L (3.65-5.03) M/mm3 Hgb 10.8 L D (11.8-15.2) gm/dl Hct 31.4 L D (35.5-45.6) % MCHC 35 H (32-34) % RDW 25.8 H (13.2-15.2) % Monocytes % (Manual) 16.0 H (0.0-7.3) % Eosinophils % (Manual) 5.0 H (0.0-4.3) % Monocytes # (Manual) 1.5 H (0.0-0.8) K/mm3 Eosinophils # (Manual) 0.5 H (0.0-0.4) K/mm3 Percent Retic 6.85 H (0.78-2.58) % Sodium 136 L (137-145) mmol/L Creatinine 0.3 L (0.8-1.5) mg/dL Total Bilirubin 5.3 H (0.1-1.2) mg/dL AST 76 H (5-40) units/L ALT 65 H (7-56) units/L Assessment and Plan - Patient Problems (1) Sickle cell anemia with pain Current Visit: Yes Status: Acute Plan to address problem: Pain control. (2) Dehydration Current Visit: No Status: Acute Plan to address problem: hydration. (3) Pain Current Visit: Yes Status: Acute Plan to address problem: Pain control. (4) Iron overload due to repeated red blood cell transfusions Current Visit: Yes Status: Acute Plan to address problem: treat with desferol continue with chelation. unless this is the 5th, and last dose.
[2016-11-23] MEDS: DILAUDID IV PRN ×7 (01:36→21:23)
[2016-11-23] MEDS: BENADRYL IV PRN ×7 (01:36→21:24)
[2016-11-23] MEDS: FOLVITE PO SCH (09:40)
[2016-11-23] MEDS: COREG PO SCH ×2 (09:40→21:30)
[2016-11-23] MEDS: Desferal 3,000 MG in NACL 0.9% 250ML 250 ML IV SCH (09:40)
--- NOTE | 2016-11-23 10:08 | Progress Note ---
Assessment and Plan Sickle cell pain crisis - management per primary Chronic hemolytic anemia s/p transfusion of PRBCs History of NICMP EF 20-25% on echo this admission Recommendations: Medical therapy for his non-ischemic cardiomyopathy to include afterload reduction, beta wayne and oral antiplatelet therapy. Subjective Date of service: 11/23/16 Interval history: Patient complains of generalized pain. He denies shortness of breath. Objective Vital Signs Temp Pulse Pulse Resp BP BP Pulse Ox 11/23/16 08:16 97.1 F L 71 18 178/98 97 11/23/16 01:36 97.6 F 63 131/79 11/22/16 21:27 62 130/83 11/22/16 15:00 98.7 F 66 18 111/67 99 11/22/16 10:36 70 120/72 - Physical Examination General: No Apparent Distress HEENT: Positive: PERRL Neck: Positive: neck supple Cardiac: Positive: Reg Rate and Rhythm Lungs: Positive: Normal Breath Sounds Neuro: Positive: Grossly Intact Extremities: Absent: edema
[2016-11-23] MEDS ORDERED: COREG PO SCH (13:25)
[2016-11-23] MEDS: COZAAR PO SCH (14:51)
[2016-11-23] MEDS: HALFPRIN EC PO SCH (14:51)
[2016-11-23] MEDS: NACL 0.45% 1000 ML 1,000 ML IV SCH (14:56)
--- NOTE | 2016-11-23 15:51 | Progress Note ---
Assessment and Plan 31-year-old male with past medical history of sickle cell disease who presents with sickle cell pain crisis 1. Sickle cell pain crisis On iv narcotics and IV fluids have been ordered, UA and chest x-ray were negative. Hematology consult appreciated 2. Chronic hemolytic anemia Hemoglobin is currently stable, has received total of 2 units prbc 3. Chronic systolic HF, Patient does not appear to be in exacerbation, echo shows worsened EF of 25%, Cardiology advised medical to continue with Carvedilol and Loseatan as will as ASA 4. DVT prophylaxis The molecular weight heparin 5. SIRS likely due to crisis, infection workup negative, including UA and CXR, rx underlying cause 6. Iron Overload continue deferoxamine for one more day per Hematology Subjective Date of service: 11/23/16 Principal diagnosis: Sickle cell pain Interval history: c/o chest and back pain. However charting on the phone prior to the encounter per pt's nurse Objective - Constitutional Vitals: Vital Signs - 12hr 11/23/16 08:16 Temperature 97.1 F L Pulse Rate [ 71 Left Radial] Respiratory 18 Rate Blood Pressure 178/98 [Left Arm] O2 Sat by Pulse 97 Oximetry General appearance: Present: no acute distress - EENT Eyes: PERRL - Respiratory Respiratory: bilateral: CTA - Cardiovascular Rhythm: regular Extremities: no ischemia - Gastrointestinal General gastrointestinal: Present: soft, non-tender, non-distended - Integumentary Integumentary: clear - Musculoskeletal Musculoskeletal: strength equal bilaterally - Neurologic Neurologic: CNII-XII intact, moves all extremities - Psychiatric Psychiatric: appropriate mood/affect - Labs CBC & Chem 7: 11/22/16 04:30 11/22/16 04:30 Labs: Abnormal lab results 11/23/16 Range/Units 08:30 Percent Retic 4.40 H (0.78-2.58) %
--- NOTE | 2016-11-23 22:09 | Consultation ---
History of Present Illness - Reason for Consult Consult date: 11/23/16 - History of Present Illness Patient seen/examined, labs reviewed, case d/w patient. he is tolerating his deferol ok. today should be day 4 or 5. Past History Past Medical History: anemia, other (sickle cell disease, E HF EF of 45%, hx of iron overload) Past Surgical History: Other (splenectomy, hernia surgery, cholecystectomy) Social history: no significant social history Family history: hypertension Medications and Allergies Allergies Allergy/AdvReac Type Severity Reaction Status Date / Time ceftriaxone sodium Allergy Unknown Verified 10/25/15 10:46 [From Rocephin] meperidine HCl [From Demerol] Allergy Unknown Verified 10/25/15 10:46 Home Medications Medication Instructions Recorded Confirmed Last Taken Type Folic Acid [Folvite] 1 mg PO QDAY 03/24/15 03/27/16 03/27/16 History Active Meds: Active Medications Acetaminophen (Tylenol) 650 mg PO Q4H PRN PRN Reason: Pain MILD(1-3)/Fever >100.5/SMITH Aspirin (Halfprin Ec) 81 mg PO QDAY [facility] Last Admin: 11/23/16 14:51 Dose: 81 mg Bisacodyl (Dulcolax) 10 mg [place] QDAY PRN PRN Reason: Constipation unrelieved by MOM Carvedilol (Coreg) 12.5 mg PO BID [facility] Last Admin: 11/23/16 21:30 Dose: 12.5 mg Diphenhydramine HCl (Benadryl) 12.5 mg IV Q3H PRN PRN Reason: Itching Last Admin: 11/23/16 21:24 Dose: 12.5 mg Folic Acid (Folvite) 1 mg PO QDAY [facility] Last Admin: 11/23/16 09:40 Dose: 1 mg Hydromorphone HCl (Dilaudid) 2 mg IV Q3H PRN PRN Reason: Pain , Severe (7-10) Last Admin: 11/23/16 21:23 Dose: 2 mg Sodium Chloride (Nacl 0.45% 1000 Ml) 1,000 mls @ 42 mls/hr IV DIRECT [facility] Last Admin: 11/23/16 14:56 Dose: 42 mls/hr Sodium Chloride (Nacl 0.9% 500 Ml) 500 mls @ 50 mls/hr IV DIRECT [facility] Last Admin: 11/21/16 21:22 Dose: 50 mls/hr Losartan Potassium (Cozaar) 25 mg PO QDAY [facility] Last Admin: 11/23/16 14:51 Dose: 25 mg Magnesium Hydroxide (Milk Of Magnesia) 30 ml PO Q4H PRN PRN Reason: Constipation Ondansetron HCl (Zofran) 4 mg IV Q8H PRN PRN Reason: N/V unrelieved by Reglan Review of Systems Constitutional: chronic pain Musculoskeletal: low back pain Exam - Constitutional Vitals: Temp Pulse Resp BP Pulse Ox 98.1 F 63 18 132/73 97 11/23/16 15:00 11/23/16 21:30 11/23/16 15:00 11/23/16 21:30 11/23/16 08:16 General appearance: Present: mild distress, well-nourished - EENT Eyes: Present: PERRL ENT: hearing intact, clear oral mucosa - Neck Neck: Present: supple, normal ROM - Respiratory Respiratory effort: normal Respiratory: bilateral: CTA - Cardiovascular Heart Sounds: Present: S1 & S2. Absent: rub, click - Extremities Extremities: pulses symmetrical, No edema Peripheral Pulses: within normal limits - Abdominal General gastrointestinal: Present: soft, non-tender, non-distended, normal bowel sounds Male genitourinary: Present: deferred - Rectal Rectal Exam: deferred - Integumentary Integumentary: Present: clear, warm, dry - Musculoskeletal Musculoskeletal: gait normal, strength equal bilaterally - Psychiatric Psychiatric: appropriate mood/affect, intact judgment & insight - Neurologic Neurologic: CNII-XII intact, moves all extremities Results - Labs CBC & Chem 7: 11/22/16 04:30 11/22/16 04:30 Labs: Abnormal lab results 11/23/16 Range/Units 08:30 Percent Retic 4.40 H (0.78-2.58) % Assessment and Plan - Patient Problems (1) Sickle cell anemia with pain Current Visit: Yes Status: Acute Plan to address problem: Pain control. (2) Dehydration Current Visit: No Status: Acute Plan to address problem: hydration. (3) Pain Current Visit: Yes Status: Acute Plan to address problem: Pain control. (4) Iron overload due to repeated red blood cell transfusions Current Visit: Yes Status: Acute Plan to address problem: treat with desferol continue with chelation. unless this is the 5th, and last dose. same as above.
[2016-11-23 22:34] LABS: Anion Gap 14 mmol/L; Blood Urea Nitrogen 16 mg/dL (9-20); Carbon Dioxide 28 mmol/L (22-30); Chloride 98.5 mmol/L (98-107); Glucose 87 mg/dL (75-100); Potassium 4.8 mmol/L (3.6-5.0); Sodium 136 mmol/L (137-145)
[2016-11-23 22:35] LABS: Calcium 9.3 mg/dL (8.4-10.2)
[2016-11-24] MEDS: DILAUDID IV PRN ×6 (00:05→15:08)
[2016-11-24] MEDS: BENADRYL IV PRN ×6 (00:07→15:10)
[2016-11-24] MEDS: FOLVITE PO SCH (09:09)
[2016-11-24] MEDS: HALFPRIN EC PO SCH (09:09)
[2016-11-24] MEDS: COREG PO SCH (09:10)
[2016-11-24] MEDS: COZAAR PO SCH (09:13)
--- NOTE | 2016-11-24 10:09 | Discharge Summary ---
Providers - Providers Date of Admission: 11/18/16 10:33 Date of discharge: 11/24/16 Attending physician: CRISTOBAL LAURENT 11/20/16 16:59 Consult to Physician [CONS] Routine Consulting Provider: ALBAN THAKUR Reason For Exam: CHF Place consult to:: DR. WILLETT Notified:: DR. WILLETT Phone number called:: [phone] Was contact made?: Yes If yes, spoke with:: HOLGER Time called:: 16:54 Comment:: DAYANA SPOKE WITH DR. VILLALTA Primary care physician: DANIEL DE JESUS Hospitalization Reason for admission: sickle cell pain crisis, Acute on Chronic systolic heart failure, anemia Condition: Stable Pertinent studies: CXR shows pulmonary venous congestion with cardiomegaly Echocardiogram done on 11/18/2016 that showed ejection fraction of 20-25% with systolic heart failure Procedures: None Hospital course: Patient is a 31-year-old gentleman was a history of sickle cell disease and chronic systolic heart failure started having generalized bone aches. More on chest wall and upper back. Presented emergency department where CXR was unremarkable for any pneumonia. However patient was found to have some congestion with cardiomegaly. Admission was requested. Placed on IV hydration with folic acid and pain control with iv narcotics. Patient has anemia from sickle cell disease. Hemoglobin was 6.8. Anemia workup showed severely elevated iron level. Hematology consult was obtained. Was commenced on Deferoxime to decrease iron level. Was given 2 units of packed red blood cells. Hemoglobin improved to 10. Echocardiogram showed ejection fraction 20- 25% with systolic failure. Pain control improved. Elevated retic counts also improved. Patient therefore been discharged today to follow primary care physician and front desk supervisor Disposition: DISCHARGED TO HOME OR SELFCARE Core Measure Documentation - Palliative Care Palliative Care/ Comfort Measures: Not Applicable - Core Measures Any of the following diagnoses?: heart failure - Heart Failure Discharge Requirements LUCY/ARB for LVSD if EF <40%: Yes Beta wayne at discharge: Yes Exam - Constitutional Vitals: Temp Pulse Resp BP Pulse Ox 98.5 F 60 16 130/72 98 11/24/16 08:00 11/24/16 08:00 11/24/16 08:00 11/24/16 09:13 11/24/16 08:00 General appearance: Present: no acute distress, well-nourished - EENT Eyes: Present: PERRL ENT: hearing intact, clear oral mucosa - Neck Neck: Present: supple, normal ROM - Respiratory Respiratory effort: normal Respiratory: bilateral: CTA - Cardiovascular Heart Sounds: Present: S1 & S2. Absent: rub, click - Extremities Extremities: pulses symmetrical, No edema Peripheral Pulses: within normal limits - Abdominal General gastrointestinal: Present: soft, non-tender, non-distended, normal bowel sounds Male genitourinary: Present: normal - Integumentary Integumentary: Present: clear, warm, dry - Musculoskeletal Musculoskeletal: gait normal, strength equal bilaterally - Psychiatric Psychiatric: appropriate mood/affect, intact judgment & insight - Neurologic Neurologic: CNII-XII intact, moves all extremities Plan Activity: advance as tolerated Weight Bearing Status: Weight Bear as Tolerated Diet: regular Follow up with: DANIEL DE JESUS DO [Primary Care Provider] - 3-5 Days Prescriptions: Carvedilol [Coreg] 12.5 mg PO BID #60 tablet Folic Acid [Folvite] 1 mg PO QDAY #30 tablet HYDROcodone/APAP 7.5-325 [[place] 7.5-325 mg TAB] 1 each PO Q6HR PRN #20 tablet PRN Reason: Pain Losartan [Cozaar] 25 mg PO QDAY #30 tablet
--- NOTE | 2016-11-24 10:30 | Progress Note ---
Assessment and Plan Sickle cell pain crisis - management per primary Chronic hemolytic anemia s/p transfusion of PRBCs History of NICMP EF 20-25% on echo this admission Recommendations: Medical therapy for his non-ischemic cardiomyopathy to include afterload reduction, beta wayne and oral antiplatelet therapy. 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 Subjective Date of service: 11/24/16 Principal diagnosis: Sickle cell pain Interval history: Patient complains of generalized pain. Objective Vital Signs Temp Pulse Pulse Resp BP BP Pulse Ox 11/24/16 09:13 130/72 11/24/16 09:10 130/72 11/24/16 08:00 98.5 F 60 16 130/72 98 11/23/16 23:50 98.2 F 63 18 132/73 96 11/23/16 22:00 72 18 11/23/16 21:30 63 132/73 11/23/16 15:00 98.1 F 69 18 126/70 - Physical Examination General: No Apparent Distress HEENT: Positive: PERRL Neck: Positive: neck supple Cardiac: Positive: Reg Rate and Rhythm Lungs: Positive: Decreased Breath Sounds Neuro: Positive: Grossly Intact Extremities: Absent: edema - Labs and Meds Comprehensive Metabolic Panel 11/23/16 Range/Units 21:17 Sodium 136 L (137-145) mmol/L Potassium 4.8 (3.6-5.0) mmol/L Chloride 98.5 (98-107) mmol/L Carbon Dioxide 28 (22-30) mmol/L BUN 16 (9-20) mg/dL Creatinine 0.4 L (0.8-1.5) mg/dL Glucose 87 (75-100) mg/dL Calcium 9.3 (8.4-10.2) mg/dL
[2016-11-24] MEDS ORDERED: FLUSH HEPARIN IV ONE (16:00)
[2016-11-24] MEDS ORDERED: POLYSPORIN TP SCH (17:00)
[2016-11-24] MEDS ORDERED: TRIPLE ANTIBIOTIC TP ONE (17:04)
[2016-11-24 20:45] VITALS: BP 120/66
== END 2016-11-24 18:00 | disposition home or self-care (01) | DRG 812 ==
LOC: ED 02:17 → 3A 10:33
PROVIDERS: ADMIT Internal Medicine; ATTEND Family Medicine
PROC: 30233N1 Transfusion of Nonautologous Red Blood Cells into Peripheral Vein, Percutaneous Approach (ICD-10-PCS; principal; 2016-11-18)
DX: D57.00 Hb-SS disease with crisis, unspecified (principal); I50.22 Chronic systolic (congestive) heart failure; R65.10 Systemic inflammatory response syndrome (SIRS) of non-infectious origin without acute organ dysfunction; E86.0 Dehydration; E83.111 Hemochromatosis due to repeated red blood cell transfusions; I42.9 Cardiomyopathy, unspecified; Z88.8 Allergy status to other drugs, medicaments and biological substances; Z90.49 Acquired absence of other specified parts of digestive tract; Z82.49 Family history of ischemic heart disease and other diseases of the circulatory system
CPT/HCPCS: 36415; 71020; 80048; 80053; 81001; 85007; 85025; 85045; 85660; 86850; 86900; 86901; 86920; 93306; A6250; J0895; J1170; J1200; J1642; J1650; J7040; J7050; P9016

== ENCOUNTER 2017-02-26 16:18 | Inpatient (IN) | payer MEDICAID ==
[2017-02-26] MEDS: DILAUDID IV PRN ×2 (18:55→22:33)
--- NOTE | 2017-02-26 19:17 | History and Physical Report ---
History of Present Illness Date of examination: 02/26/17 Date of admission: 02/26/17 17:42 Chief complaint: 31-year-old -Irish male with past medical history significant for sickle cell is a direct admit from Dr [facility] for sickle cell pain crisis. The patient complains pain on his back arm, back and his legs for the past 1 week. Patient went to [place] and he was admitted for one day and discharged him the next day. Patient said the pain was not controlled. His hemoglobin at [place] was 6.6 and didn't get any transfusion. She is admitted here for workup and for further management. She denied shortness of breath, palpitation, leg swelling. REVIEW OF SYSTEMS: GENERAL: no weight change, no fatigue, no fever HEAD: no head ache EYES: no blurry vision, no acute visual loss EARS: no hearing loss, no discharge, no earache NOSE: no stuffiness, no sneezing, no discharge MOUTH, THROAT AND NECK: no bleeding gums, no sore throat, no swollen neck CARDIAC: no palpitations, no dyspnea on exertion, no orthopnea, no PND, no edema , no chest pain RESPIRATORY: no shortness of breath, no wheeze, no cough, no sputum, no hemoptysis, no asthma GI: no decreased appetite, no nausea, no vomiting, no dysphagia, no diarrhea, no constipation, no abdominal pain URINARY: no change in frequency, no urgency, no polyuria, no hematuria, no incontinence MUSCULOSKELETAL: Pain. NEUROLOGIC: no loss of sensation/numbness, no tingling, no tremors, no weakness/ paralysis HEMATOLOGIC: Sickle cell. SKIN: no rashes ENDOCRINE: no heat/cold intolerance, no polyuria, no polydipsia, no thyroid problems, no diabetes PSYCHIATRIC: no anxiety, no depression, no suicidal ideations Past History Past Medical History: other (sickle cellckle cell pain crisis) Past Surgical History: cholecystectomy, hernia repair, Other (Splenectomy) Social history: full code. denies: smoking, alcohol abuse, prescription drug abuse, IV drug use Family history: other (Sickle cell in both sides of cousins) Medications and Allergies Allergies Allergy/AdvReac Type Severity Reaction Status Date / Time ceftriaxone sodium Allergy Unknown Verified 10/25/15 10:46 [From Rocephin] meperidine HCl [From Demerol] Allergy Unknown Verified 10/25/15 10:46 Home Medications Medication Instructions Recorded Confirmed Last Taken Type Carvedilol [Coreg] 12.5 mg PO BID #60 tablet 11/24/16 Unknown Rx Folic Acid [Folvite] 1 mg PO QDAY #30 tablet 11/24/16 Unknown Rx HYDROcodone/APAP 7.5-325 [[place] 1 each PO Q6HR PRN #20 tablet 11/24/16 Unknown Rx 7.5-325 mg TAB] Losartan [Cozaar] 25 mg PO QDAY #30 tablet 11/24/16 Unknown Rx Active Meds: Active Medications Diphenhydramine HCl (Benadryl) 12.5 mg IV Q3H PRN PRN Reason: Itching Hydromorphone HCl (Dilaudid) 2 mg IV Q3H PRN PRN Reason: Pain, Moderate (4-6) Last Admin: 02/26/17 18:55 Dose: 2 mg Exam - Physical Exam Narrative exam: Not in cardiopulmonary distress. The patient appeared well nourished and normally developed. Vital signs as documented. Head exam is unremarkable. No scleral icterus . Neck is without jugular venous distension, thyromegaly, or carotid bruits. Lungs are clear to auscultation. Cardiac exam reveals regular rate and Rhythm. First and second heart sounds normal. No murmurs, rubs or gallops. Abdominal exam reveals normal bowel sounds, no masses, no organomegaly and no aortic enlargement. Extremities are nonedematous and both femoral and pedal pulses are normal. DELIVERY ASSISTANT: Alert and oriented 3. No focal weakness. Assessment and Plan Assessment and plan: Sickle cell pain crisis - Patient will be on Dilaudid and Benadryl - Continue home dose of hydrocodone - Folic acid - [place] consulted Dehydration - Patient will be on D5 1/4 normal saline - Follow BMP in the morning - We'll check labs today Anemia - Chek H and H - We'll transfuse if hemoglobin is below 7 DVT prophylaxis - SCD because of anemia Disposition - Admit to medical floor. Advance Directives: Yes VTE prophylaxis?: Chemical Plan of care discussed with patient/family: Yes
[2017-02-26 20:07] LABS: Hemoglobin 7.1 gm/dl (11.8-15.2); Mean Corpuscular HGB Conc 36 % (32-34); Mean Corpuscular Hemoglobin 35 pg (28-32); Mean Corpuscular Volume 96 fl (84-94); Platelet Count 253 K/mm3 (140-440); Red Blood Count 2.05 M/mm3 (3.65-5.03); Reticulocyte % 11.49 % (0.78-2.58); White Blood Count 16.3 K/mm3 (4.5-11.0)
[2017-02-26 20:26] LABS: Hematocrit 19.8 % (35.5-45.6); Red Cell Distribution Width 24.1 % (13.2-15.2)
[2017-02-26 20:27] LABS: Alanine Aminotransferase 118 units/L (7-56); Albumin 4.5 g/dL (3.9-5); Albumin/Globulin Ratio 1.6 %; Alkaline Phosphatase 130 units/L (35-129); Anion Gap 19 mmol/L; Blood Urea Nitrogen 13 mg/dL (9-20); Calcium 8.8 mg/dL (8.4-10.2); Carbon Dioxide 24 mmol/L (22-30); Chloride 101.6 mmol/L (98-107); Glucose 93 mg/dL (75-100); Potassium 3.9 mmol/L (3.6-5.0); Sodium 141 mmol/L (137-145); Total Protein 7.4 g/dL (6.3-8.2)
[2017-02-26] MEDS ORDERED: NACL 0.9% 500 ML 500 ML IV ONE (21:00)
--- NOTE | 2017-02-26 22:02 | Consultation ---
History of Present Illness - Reason for Consult Consult date: 02/26/17 SCD/Anemia Requesting physician: MAGDA MCKEON - History of Present Illness Thank you for this consult, patient seen today, examined, labs reviewed. WBC up , hgb fair, retic elevated. Admitted from the office ,for crisis sake, and sxs management. Known with Iron overload, and therefore, will not need transfusion, of PRBC , unless hgb less than 6.5 Past History Past Medical History: anemia, other (sickle cellckle cell pain crisis) Past Surgical History: cholecystectomy, hernia repair, Other (Splenectomy) Social history: full code. denies: smoking, alcohol abuse, prescription drug abuse, IV drug use Family history: no significant family history, other (Sickle cell in both sides of cousins) Medications and Allergies Allergies Allergy/AdvReac Type Severity Reaction Status Date / Time ceftriaxone sodium Allergy Unknown Verified 10/25/15 10:46 [From Rocephin] meperidine HCl [From Demerol] Allergy Unknown Verified 10/25/15 10:46 Home Medications Medication Instructions Recorded Confirmed Last Taken Type Carvedilol [Coreg] 12.5 mg PO BID #60 tablet 11/24/16 02/26/17 Unknown Rx Folic Acid [Folvite] 1 mg PO QDAY #30 tablet 11/24/16 02/26/17 Unknown Rx HYDROcodone/APAP 7.5-325 [[place] 1 each PO Q6HR PRN #20 tablet 11/24/16 02/26/17 Unknown Rx 7.5-325 mg TAB] Losartan [Cozaar] 25 mg PO QDAY #30 tablet 11/24/16 02/26/17 Unknown Rx Active Meds: Active Medications Acetaminophen/Hydrocodone Bitart ([place] 7.5/325) 1 each PO Q6HR PRN PRN Reason: Pain Carvedilol (Coreg) 12.5 mg PO BID WAY[place] Diphenhydramine HCl (Benadryl) 12.5 mg IV Q3H PRN PRN Reason: Itching Folic Acid (Folvite) 1 mg PO QDAY WAY[place] Hydromorphone HCl (Dilaudid) 2 mg IV Q3H PRN PRN Reason: Pain, Moderate (4-6) Last Admin: 02/26/17 18:55 Dose: 2 mg Losartan Potassium (Cozaar) 25 mg PO QDAY WAYNE Review of Systems Constitutional: chronic pain Musculoskeletal: low back pain Exam - Constitutional General appearance: Present: mild distress, well-nourished - EENT Eyes: Present: PERRL ENT: hearing intact, clear oral mucosa - Neck Neck: Present: supple, normal ROM - Respiratory Respiratory effort: normal Respiratory: bilateral: CTA - Cardiovascular Heart Sounds: Present: S1 & S2. Absent: rub, click - Extremities Extremities: pulses symmetrical, No edema Peripheral Pulses: within normal limits - Abdominal General gastrointestinal: Present: soft, non-tender, non-distended, normal bowel sounds Male genitourinary: Present: deferred - Rectal Rectal Exam: deferred - Integumentary Integumentary: Present: clear, warm, dry - Musculoskeletal Musculoskeletal: gait normal, strength equal bilaterally - Psychiatric Psychiatric: appropriate mood/affect, intact judgment & insight - Neurologic Neurologic: CNII-XII intact, moves all extremities Results - Labs CBC & Chem 7: 02/26/17 19:45 02/26/17 19:45 Labs: Abnormal lab results 02/26/17 02/26/17 Range/Units 19:45 19:45 WBC 16.3 H (4.5-11.0) K/mm3 RBC 2.05 L (3.65-5.03) M/mm3 Hgb 7.1 L (11.8-15.2) gm/dl Hct 19.8 L* (35.5-45.6) % MCV 96 H (84-94) fl MCH 35 H (28-32) pg MCHC 36 H (32-34) % RDW 24.1 H (13.2-15.2) % Percent Retic 11.49 H (0.78-2.58) % Creatinine 0.4 L (0.8-1.5) mg/dL Total Bilirubin 5.00 H (0.1-1.2) mg/dL AST 108 H (5-40) units/L ALT 118 H (7-56) units/L Alkaline Phosphatase 130 H (35-129) units/L Assessment and Plan - Patient Problems (1) Iron overload due to repeated red blood cell transfusions Current Visit: No Status: Acute (2) Sickle cell pain crisis Current Visit: Yes Status: Acute Plan to address problem: hydration, pain control. (3) Anemia Current Visit: Yes Status: Acute Qualifiers: Anemia type: A Iron deficiency anemia type: I Vitamin B12 deficiency anemia type: V Folate deficiency anemia type: F Bone marrow failure anemia type: B Hemolytic anemia type: H Other causes of anemia: O Chronic kidney disease stage: C Plan to address problem: see notes. (4) Leukocytosis Current Visit: Yes Status: Acute Qualifiers: Leukocytosis type: L Plan to address problem: will do cultures, this may also be due to crisis.
[2017-02-26 22:32] LABS: Anisocytosis 2+; Blastocytes % (Manual) 0 %; Sickle Cells 2+
[2017-02-26 22:33] LABS: Giant Platelets Few; Large Platelets Few; Polychromasia Few; Target Cells 1+
[2017-02-26 22:34] LABS: Diff Status Complete; Hypochromasia 2+
[2017-02-26] MEDS: COREG PO SCH (22:34)
[2017-02-26] MEDS: BENADRYL IV PRN (22:34)
[2017-02-27] MEDS: BENADRYL IV PRN ×7 (01:57→22:24)
[2017-02-27] MEDS: DILAUDID IV PRN ×7 (01:58→22:15)
[2017-02-27 06:36] LABS: Hemoglobin 6.8 gm/dl (11.8-15.2); Mean Corpuscular HGB Conc 36 % (32-34); Mean Corpuscular Hemoglobin 34 pg (28-32); Mean Corpuscular Volume 95 fl (84-94); Platelet Count 239 K/mm3 (140-440); Red Blood Count 2.02 M/mm3 (3.65-5.03); White Blood Count 17.7 K/mm3 (4.5-11.0)
[2017-02-27 06:37] LABS: Red Cell Distribution Width 23.8 % (13.2-15.2)
[2017-02-27 06:38] LABS: Hematocrit 19.1 % (35.5-45.6)
[2017-02-27 06:57] LABS: Alanine Aminotransferase 109 units/L (7-56); Albumin 4.2 g/dL (3.9-5); Albumin/Globulin Ratio 1.4 %; Alkaline Phosphatase 156 units/L (35-129); Anion Gap 18 mmol/L; Blood Urea Nitrogen 12 mg/dL (9-20); Calcium 8.8 mg/dL (8.4-10.2); Carbon Dioxide 24 mmol/L (22-30); Chloride 100.6 mmol/L (98-107); Glucose 113 mg/dL (75-100); Potassium 3.9 mmol/L (3.6-5.0); Sodium 139 mmol/L (137-145); Total Protein 7.2 g/dL (6.3-8.2)
[2017-02-27] MEDS: FOLVITE PO SCH (09:07)
[2017-02-27] MEDS: COZAAR PO SCH (09:07)
[2017-02-27] MEDS: COREG PO SCH ×2 (09:07→21:01)
[2017-02-27 11:15] LABS: Basophils % (Manual) 0 % (0.0-1.8); Blastocytes % (Manual) 0 %
[2017-02-27 11:16] LABS: Anisocytosis 2+; Hypochromasia Few; Poikilocytosis 1+
[2017-02-27 11:17] LABS: Diff Status Complete; Elliptocytes 1+; Platelet Estimate Consistent w Auto; Sickle Cells 1+; Target Cells Few
--- NOTE | 2017-02-27 11:21 | Progress Note ---
Assessment and Plan Assessment and plan: Sickle cell pain crisis. Continue IV fluid hydration and pain control. Sickle cell anemia. Supportive care. Iron overload due to repeated red blood cell transfusions. Patient will not receive PRBCs unless hemoglobin less than 6.5 per hematology recommendations. Leukocytosis. Etiology likely secondary to stress induced leukemoid reaction from sickle cell pain crisis. Follow-up cultures. History Interval history: No new issues overnight. Patient still complains of pain. Hospitalist Physical - Constitutional Vitals: Temp Pulse Resp BP Pulse Ox 98.2 F 65 18 113/53 95 02/27/17 08:00 02/27/17 08:00 02/27/17 08:00 02/27/17 08:00 02/27/17 08:00 General appearance: Present: mild distress, well-nourished - EENT Eyes: Present: PERRL, EOM intact ENT: hearing intact, clear oral mucosa, dentition normal - Neck Neck: Present: supple, normal ROM - Respiratory Respiratory effort: normal Respiratory: bilateral: CTA - Cardiovascular Rhythm: regular Heart Sounds: Present: S1 & S2. Absent: gallop, rub - Extremities Extremities: no ischemia, No edema, Full ROM - Abdominal General gastrointestinal: soft, non-tender, non-distended, normal bowel sounds - Integumentary Integumentary: Present: clear, warm, dry - Neurologic Neurologic: CNII-XII intact, moves all extremities Results - Labs CBC & Chem 7: 02/27/17 06:15 02/27/17 06:15 Labs: Laboratory Last Values WBC 17.7 K/mm3 (4.5-11.0) H 02/27/17 06:15 RBC 2.02 M/mm3 (3.65-5.03) L 02/27/17 06:15 Hgb 6.8 gm/dl (11.8-15.2) L 02/27/17 06:15 Hct 19.1 % (35.5-45.6) L* 02/27/17 06:15 MCV 95 fl (84-94) H 02/27/17 06:15 MCH 34 pg (28-32) H 02/27/17 06:15 MCHC 36 % (32-34) H 02/27/17 06:15 RDW 23.8 % (13.2-15.2) H 02/27/17 06:15 Plt Count 239 K/mm3 (140-440) 02/27/17 06:15 Lymph # Professor Of Musicology 02/27/17 06:15 Add Manual Diff Complete 02/27/17 06:15 Total Counted 100 02/27/17 06:15 Seg Neuts % (Manual) 46.0 % (40.0-70.0) 02/27/17 06:15 Band Neutrophils % 0 % 02/27/17 06:15 Lymphocytes % (Manual) 35.0 % (13.4-35.0) 02/27/17 06:15 Reactive Lymphs % (Man) 1.0 % 02/27/17 06:15 Monocytes % (Manual) 7.0 % (0.0-7.3) 02/27/17 06:15 Eosinophils % (Manual) 11.0 % (0.0-4.3) H 02/27/17 06:15 Basophils % (Manual) 0 % (0.0-1.8) 02/27/17 06:15 Metamyelocytes % 0 % 02/27/17 06:15 Myelocytes % 0 % 02/27/17 06:15 Promyelocytes % 0 % 02/27/17 06:15 Blast Cells % 0 % 02/27/17 06:15 Nucleated RBC % Not Reportable 02/27/17 06:15 Seg Neutrophils # Man 8.1 K/mm3 (1.8-7.7) H 02/27/17 06:15 Band Neutrophils # 0.0 K/mm3 02/27/17 06:15 Lymphocytes # (Manual) 6.2 K/mm3 (1.2-5.4) H 02/27/17 06:15 Abs React Lymphs (Man) 0.2 K/mm3 02/27/17 06:15 Monocytes # (Manual) 1.2 K/mm3 (0.0-0.8) H 02/27/17 06:15 Eosinophils # (Manual) 1.9 K/mm3 (0.0-0.4) H 02/27/17 06:15 Basophils # (Manual) 0.0 K/mm3 (0.0-0.1) 02/27/17 06:15 Metamyelocytes # 0.0 K/mm3 02/27/17 06:15 Myelocytes # 0.0 K/mm3 02/27/17 06:15 Promyelocytes # 0.0 K/mm3 02/27/17 06:15 Blast Cells # 0.0 K/mm3 02/27/17 06:15 WBC Morphology Not Reportable 02/27/17 06:15 Hypersegmented Neuts Not Reportable 02/27/17 06:15 Hyposegmented Neuts Not Reportable 02/27/17 06:15 Hypogranular Neuts Not Reportable 02/27/17 06:15 Smudge Cells Not Reportable 02/27/17 06:15 Toxic Granulation Not Reportable 02/27/17 06:15 Toxic Vacuolation Not Reportable 02/27/17 06:15 Dohle Bodies Not Reportable 02/27/17 06:15 Pelger-Huet Anomaly Not Reportable 02/27/17 06:15 Christian Rods Not Reportable 02/27/17 06:15 Platelet Estimate Consistent w auto 02/27/17 06:15 Clumped Platelets Not Reportable 02/27/17 06:15 Plt Clumps, EDTA Not Reportable 02/27/17 06:15 Large Platelets Not Reportable 02/27/17 06:15 Giant Platelets Not Reportable 02/27/17 06:15 Platelet Satelliting Not Reportable 02/27/17 06:15 Plt Morphology Comment Not Reportable 02/27/17 06:15 RBC Morphology Not Reportable 02/27/17 06:15 Dimorphic RBCs Not Reportable 02/27/17 06:15 Polychromasia Not Reportable 02/27/17 06:15 Hypochromasia Few 02/27/17 06:15 Poikilocytosis 1+ 02/27/17 06:15 Anisocytosis 2+ 02/27/17 06:15 Microcytosis Not Reportable 02/27/17 06:15 Macrocytosis Not Reportable 02/27/17 06:15 Spherocytes Not Reportable 02/27/17 06:15 Pappenheimer Bodies Not Reportable 02/27/17 06:15 Sickle Cells 1+ 02/27/17 06:15 Target Cells Few 02/27/17 06:15 Tear Drop Cells Not Reportable 02/27/17 06:15 Ovalocytes Not Reportable 02/27/17 06:15 Helmet Cells Not Reportable 02/27/17 06:15 [place] Bodies Not Reportable 02/27/17 06:15 Acton Rings Not Reportable 02/27/17 06:15 Nolberto Cells Not Reportable 02/27/17 06:15 Bite Cells Not Reportable 02/27/17 06:15 Crenated Cell Not Reportable 02/27/17 06:15 Elliptocytes 1+ 02/27/17 06:15 Acanthocytes (Spur) Not Reportable 02/27/17 06:15 Rouleaux Not Reportable 02/27/17 06:15 Hemoglobin C Crystals Not Reportable 02/27/17 06:15 Schistocytes Not Reportable 02/27/17 06:15 Malaria parasites Not Reportable 02/27/17 06:15 Percent Retic 11.49 % (0.78-2.58) H 02/26/17 19:45 You Bodies Not Reportable 02/27/17 06:15 Hem Pathologist Commnt No 02/27/17 06:15 Sodium 139 mmol/L (137-145) 02/27/17 06:15 Potassium 3.9 mmol/L (3.6-5.0) 02/27/17 06:15 Chloride 100.6 mmol/L (98-107) 02/27/17 06:15 Carbon Dioxide 24 mmol/L (22-30) 02/27/17 06:15 Anion Gap 18 mmol/L 02/27/17 06:15 BUN 12 mg/dL (9-20) 02/27/17 06:15 Creatinine 0.4 mg/dL (0.8-1.5) L 02/27/17 06:15 Estimated GFR > 60 ml/min 02/27/17 06:15 BUN/Creatinine Ratio 30.00 % 02/27/17 06:15 Glucose 113 mg/dL (75-100) H 02/27/17 06:15 Calcium 8.8 mg/dL (8.4-10.2) 02/27/17 06:15 Ferritin 2000.0 ng/mL (13.0-400.0) H 02/27/17 00:31 Total Bilirubin 5.60 mg/dL (0.1-1.2) H 02/27/17 06:15 AST 97 units/L (5-40) H 02/27/17 06:15 ALT 109 units/L (7-56) H 02/27/17 06:15 Alkaline Phosphatase 156 units/L (35-129) H 02/27/17 06:15 Total Protein 7.2 g/dL (6.3-8.2) 02/27/17 06:15 Albumin 4.2 g/dL (3.9-5) 02/27/17 06:15 Albumin/Globulin Ratio 1.4 % 02/27/17 06:15 Blood Type O POSITIVE 02/26/17 21:30 Antibody Screen TNR 02/26/17 21:30 JAIRO Antibody Screen Negative 02/26/17 21:30 Crossmatch See Detail 02/26/17 21:30
[2017-02-27] MEDS: NACL 0.9% 1000 ML 1,000 ML IV SCH (16:32)
[2017-02-27] MEDS ORDERED: NACL 0.9% 500 ML IV ONE (17:00)
--- NOTE | 2017-02-27 17:33 | Consultation ---
History of Present Illness - Reason for Consult Consult date: 02/27/17 - History of Present Illness Patient seen/examined, labs reviewed, case d/w patient.storage iron high, and because of this new blood, he will need some chelating procedure. Past History Past Medical History: anemia, other (sickle cellckle cell pain crisis) Past Surgical History: cholecystectomy, hernia repair, Other (Splenectomy) Social history: full code. denies: smoking, alcohol abuse, prescription drug abuse, IV drug use Family history: no significant family history, other (Sickle cell in both sides of cousins) Medications and Allergies Allergies Allergy/AdvReac Type Severity Reaction Status Date / Time ceftriaxone sodium Allergy Unknown Verified 10/25/15 10:46 [From Rocephin] meperidine HCl [From Demerol] Allergy Unknown Verified 10/25/15 10:46 Home Medications Medication Instructions Recorded Confirmed Last Taken Type Carvedilol [Coreg] 12.5 mg PO BID #60 tablet 11/24/16 02/26/17 Unknown Rx Folic Acid [Folvite] 1 mg PO QDAY #30 tablet 11/24/16 02/26/17 Unknown Rx HYDROcodone/APAP 7.5-325 [[place] 1 each PO Q6HR PRN #20 tablet 11/24/16 02/26/17 Unknown Rx 7.5-325 mg TAB] Losartan [Cozaar] 25 mg PO QDAY #30 tablet 11/24/16 02/26/17 Unknown Rx Active Meds: Active Medications Acetaminophen/Hydrocodone Bitart ([place] 7.5/325) 1 each PO Q6HR PRN PRN Reason: Pain Carvedilol (Coreg) 12.5 mg PO BID [facility] Last Admin: 02/27/17 09:07 Dose: 12.5 mg Diphenhydramine HCl (Benadryl) 12.5 mg IV Q3H PRN PRN Reason: Itching Last Admin: 02/27/17 15:48 Dose: 12.5 mg Folic Acid (Folvite) 1 mg PO QDAY [facility] Last Admin: 02/27/17 09:07 Dose: 1 mg Hydromorphone HCl (Dilaudid) 2 mg IV Q3H PRN PRN Reason: Pain, Moderate (4-6) Last Admin: 02/27/17 15:47 Dose: 2 mg Sodium Chloride (Nacl 0.9% 1000 Ml) 1,000 mls @ 75 mls/hr IV DIRECT WAYNE Last Admin: 02/27/17 16:32 Dose: 75 mls/hr Losartan Potassium (Cozaar) 25 mg PO QDAY [facility] Last Admin: 02/27/17 09:07 Dose: 25 mg Review of Systems Constitutional: chronic pain Exam - Constitutional Vitals: Temp Pulse Resp BP Pulse Ox 98.3 F 74 18 107/53 96 02/27/17 15:00 02/27/17 15:00 02/27/17 15:00 02/27/17 15:00 02/27/17 15:00 General appearance: Present: mild distress, well-nourished - EENT Eyes: Present: PERRL ENT: hearing intact, clear oral mucosa - Neck Neck: Present: supple, normal ROM - Respiratory Respiratory effort: normal Respiratory: bilateral: CTA - Cardiovascular Heart Sounds: Present: S1 & S2. Absent: rub, click - Extremities Extremities: pulses symmetrical, No edema Peripheral Pulses: within normal limits - Abdominal General gastrointestinal: Present: soft, non-tender, non-distended, normal bowel sounds Male genitourinary: Present: deferred - Rectal Rectal Exam: deferred - Integumentary Integumentary: Present: clear, warm, dry - Musculoskeletal Musculoskeletal: gait normal, strength equal bilaterally - Psychiatric Psychiatric: appropriate mood/affect, intact judgment & insight - Neurologic Neurologic: CNII-XII intact, moves all extremities Results - Labs CBC & Chem 7: 02/27/17 06:15 02/27/17 06:15 Labs: Abnormal lab results 02/26/17 02/26/17 02/26/17 Range/Units 19:45 19:45 21:30 WBC 16.3 H (4.5-11.0) K/mm3 RBC 2.05 L (3.65-5.03) M/mm3 Hgb 7.1 L (11.8-15.2) gm/dl Hct 19.8 L* (35.5-45.6) % MCV 96 H (84-94) fl MCH 35 H (28-32) pg MCHC 36 H (32-34) % RDW 24.1 H (13.2-15.2) % Monocytes % (Manual) 11.0 H (0.0-7.3) % Eosinophils % (Manual) (0.0-4.3) % Nucleated RBC % 2.0 H (0.0-0.9) % Seg Neutrophils # Man 9.3 H (1.8-7.7) K/mm3 Lymphocytes # (Manual) (1.2-5.4) K/mm3 Monocytes # (Manual) 1.8 H (0.0-0.8) K/mm3 Eosinophils # (Manual) 0.7 H (0.0-0.4) K/mm3 Basophils # (Manual) 0.2 H (0.0-0.1) K/mm3 Percent Retic 11.49 H (0.78-2.58) % Creatinine 0.4 L (0.8-1.5) mg/dL Glucose (75-100) mg/dL Ferritin (13.0-400.0) ng/mL Total Bilirubin 5.00 H (0.1-1.2) mg/dL AST 108 H (5-40) units/L ALT 118 H (7-56) units/L Alkaline Phosphatase 130 H (35-129) units/L Crossmatch See Detail 02/27/17 02/27/17 02/27/17 Range/Units 00:31 06:15 06:15 WBC 17.7 H (4.5-11.0) K/mm3 RBC 2.02 L (3.65-5.03) M/mm3 Hgb 6.8 L (11.8-15.2) gm/dl Hct 19.1 L* (35.5-45.6) % MCV 95 H (84-94) fl MCH 34 H (28-32) pg MCHC 36 H (32-34) % RDW 23.8 H (13.2-15.2) % Monocytes % (Manual) (0.0-7.3) % Eosinophils % (Manual) 11.0 H (0.0-4.3) % Nucleated RBC % (0.0-0.9) % Seg Neutrophils # Man 8.1 H (1.8-7.7) K/mm3 Lymphocytes # (Manual) 6.2 H (1.2-5.4) K/mm3 Monocytes # (Manual) 1.2 H (0.0-0.8) K/mm3 Eosinophils # (Manual) 1.9 H (0.0-0.4) K/mm3 Basophils # (Manual) (0.0-0.1) K/mm3 Percent Retic (0.78-2.58) % Creatinine 0.4 L (0.8-1.5) mg/dL Glucose 113 H (75-100) mg/dL Ferritin 2000.0 H (13.0-400.0) ng/mL Total Bilirubin 5.60 H (0.1-1.2) mg/dL AST 97 H (5-40) units/L ALT 109 H (7-56) units/L Alkaline Phosphatase 156 H (35-129) units/L Crossmatch Assessment and Plan - Patient Problems (1) Iron overload due to repeated red blood cell transfusions Current Visit: No Status: Acute (2) Sickle cell pain crisis Current Visit: Yes Status: Acute Plan to address problem: hydration, pain control. (3) Anemia Current Visit: Yes Status: Acute Qualifiers: Anemia type: A Iron deficiency anemia type: I Vitamin B12 deficiency anemia type: V Folate deficiency anemia type: F Bone marrow failure anemia type: B Hemolytic anemia type: H Other causes of anemia: O Chronic kidney disease stage: C Plan to address problem: see notes. (4) Leukocytosis Current Visit: Yes Status: Acute Qualifiers: Leukocytosis type: L Plan to address problem: will do cultures, this may also be due to crisis. (5) Iron overload, transfusional Current Visit: Yes Status: Acute Plan to address problem: chelation.
[2017-02-28] MEDS: DILAUDID IV PRN ×7 (01:39→21:02)
[2017-02-28] MEDS: BENADRYL IV PRN ×7 (01:39→21:02)
--- NOTE | 2017-02-28 08:40 | Discharge Summary ---
Providers - Providers Date of Admission: 02/26/17 17:42 Date of discharge: 02/28/17 Attending physician: SHARI VALLEJO 02/26/17 16:23 Consult to Physician [CONS] Routine Consulting Provider: DANIEL DE JESUS Reason For Exam: SICKLE CELL DISEASE WITH CRISIS. Place consult to:: DR. DE JESUS Notified:: . Phone number called:: [phone] Was contact made?: Yes If yes, spoke with:: DR. DE JESUS Time called:: 16:25 Comment:: all ready completed by someone else Primary care physician: DANIEL DE JESUS Hospitalization Reason for admission: sickle cell pain crisis Hospital course: 31-year-old -[place] male with past medical history significant for sickle cell is a direct admit from Dr [facility] for sickle cell pain crisis. The patient complains pain on his back arm, back and his legs for the past 1 week. Patient went to [place] and he was admitted for one day and discharged him the next day. Patient said the pain was not controlled. His hemoglobin at [place] was 6.6 and didn't get any transfusion. He was admitted here for workup and for further management. Patient has a known history of iron overload and therefore needed chelation procedure for blood transfusion. Patient was also noted to have leukocytosis but no evidence of infection. Etiology is felt to be secondary to stress induced leukemoid reaction from sickle cell crisis. Blood cultures are negative. Patient sickle cell pain crisis resolved and H&H stabilized. Patient is felt to have received maximal hospital benefit. Dedicated discharge time 33 minutes. Disposition: TO HOME OR SELFCARE Time spent for discharge: 33 - Discharge Diagnoses (1) Anemia Status: Acute Qualifiers: Anemia type: A Iron deficiency anemia type: I Vitamin B12 deficiency anemia type: V Folate deficiency anemia type: F Bone marrow failure anemia type: B Hemolytic anemia type: H Other causes of anemia: O Chronic kidney disease stage: C (2) Iron overload, transfusional Status: Acute (3) Sickle cell pain crisis Status: Acute Core Measure Documentation - Palliative Care Palliative Care/ Comfort Measures: Not Applicable - Core Measures Any of the following diagnoses?: none Exam - Constitutional Vitals: Temp Pulse Resp BP Pulse Ox 98.3 F 74 18 116/64 96 02/27/17 21:05 02/27/17 22:00 02/28/17 05:09 02/27/17 21:05 02/27/17 22:00 General appearance: Present: no acute distress, well-nourished - EENT Eyes: Present: PERRL ENT: hearing intact, clear oral mucosa - Neck Neck: Present: supple, normal ROM - Respiratory Respiratory effort: normal Respiratory: bilateral: CTA - Cardiovascular Heart Sounds: Present: S1 & S2. Absent: rub, click - Extremities Extremities: pulses symmetrical, No edema Peripheral Pulses: within normal limits - Abdominal General gastrointestinal: Present: soft, non-tender, non-distended, normal bowel sounds Male genitourinary: Present: normal - Integumentary Integumentary: Present: clear, warm, dry - Musculoskeletal Musculoskeletal: gait normal, strength equal bilaterally - Psychiatric Psychiatric: appropriate mood/affect, intact judgment & insight - Neurologic Neurologic: CNII-XII intact, moves all extremities Plan Activity: no restrictions Weight Bearing Status: Full Weight Bearing Diet: regular Follow up with: DANIEL DE JESUS DO [Primary Care Provider] - 7 Days Prescriptions: Carvedilol [Coreg] 12.5 mg PO BID #60 tablet Folic Acid [Folvite] 1 mg PO QDAY #30 tablet HYDROcodone/APAP 7.5-325 [[place] 7.5-325 mg TAB] 1 each PO Q6HR PRN #20 tablet PRN Reason: Pain Losartan [Cozaar] 25 mg PO QDAY #30 tablet
[2017-02-28] MEDS: FOLVITE PO SCH (11:11)
[2017-02-28] MEDS: COREG PO SCH ×2 (11:11→21:20)
[2017-02-28] MEDS: COZAAR PO SCH (11:12)
--- NOTE | 2017-02-28 11:17 | Progress Note ---
Assessment and Plan Assessment and plan: Sickle cell pain crisis. Continue IV fluid hydration and pain control. Sickle cell anemia. Supportive care. Patient status post PRBC transfusion last evening. Iron overload due to repeated red blood cell transfusions. Patient undergo chelation procedures per hematology. Leukocytosis. Etiology likely secondary to stress induced leukemoid reaction from sickle cell pain crisis. Follow-up cultures. - Patient Problems (1) Anemia Current Visit: Yes Status: Acute Qualifiers: Anemia type: A Iron deficiency anemia type: I Vitamin B12 deficiency anemia type: V Folate deficiency anemia type: F Bone marrow failure anemia type: B Hemolytic anemia type: H Other causes of anemia: O Chronic kidney disease stage: C (2) Iron overload, transfusional Current Visit: Yes Status: Acute (3) Sickle cell pain crisis Current Visit: Yes Status: Acute History Interval history: No new issues overnight. Patient still complains of knee pain. Hospitalist Physical - Constitutional Vitals: Temp Pulse Resp BP Pulse Ox 98.0 F 80 18 130/80 97 02/28/17 08:05 02/28/17 11:11 02/28/17 08:05 02/28/17 11:11 02/28/17 08:05 General appearance: Present: no acute distress, well-nourished - EENT Eyes: Present: PERRL, EOM intact ENT: hearing intact, clear oral mucosa, dentition normal - Neck Neck: Present: supple, normal ROM - Respiratory Respiratory effort: normal Respiratory: bilateral: CTA - Cardiovascular Rhythm: regular Heart Sounds: Present: S1 & S2. Absent: gallop, rub - Extremities Extremities: no ischemia, No edema, Full ROM - Abdominal General gastrointestinal: soft, non-tender, non-distended, normal bowel sounds - Integumentary Integumentary: Present: clear, warm, dry - Neurologic Neurologic: CNII-XII intact, moves all extremities Results - Labs CBC & Chem 7: 02/27/17 06:15 02/27/17 06:15 Labs: Laboratory Last Values WBC 17.7 K/mm3 (4.5-11.0) H 02/27/17 06:15 RBC 2.02 M/mm3 (3.65-5.03) L 02/27/17 06:15 Hgb 6.8 gm/dl (11.8-15.2) L 02/27/17 06:15 Hct 19.1 % (35.5-45.6) L* 02/27/17 06:15 MCV 95 fl (84-94) H 02/27/17 06:15 MCH 34 pg (28-32) H 02/27/17 06:15 MCHC 36 % (32-34) H 02/27/17 06:15 RDW 23.8 % (13.2-15.2) H 02/27/17 06:15 Plt Count 239 K/mm3 (140-440) 02/27/17 06:15 Lymph # Relocation Commissioner 02/27/17 06:15 Add Manual Diff Complete 02/27/17 06:15 Total Counted 100 02/27/17 06:15 Seg Neuts % (Manual) 46.0 % (40.0-70.0) 02/27/17 06:15 Band Neutrophils % 0 % 02/27/17 06:15 Lymphocytes % (Manual) 35.0 % (13.4-35.0) 02/27/17 06:15 Reactive Lymphs % (Man) 1.0 % 02/27/17 06:15 Monocytes % (Manual) 7.0 % (0.0-7.3) 02/27/17 06:15 Eosinophils % (Manual) 11.0 % (0.0-4.3) H 02/27/17 06:15 Basophils % (Manual) 0 % (0.0-1.8) 02/27/17 06:15 Metamyelocytes % 0 % 02/27/17 06:15 Myelocytes % 0 % 02/27/17 06:15 Promyelocytes % 0 % 02/27/17 06:15 Blast Cells % 0 % 02/27/17 06:15 Nucleated RBC % Not Reportable 02/27/17 06:15 Seg Neutrophils # Man 8.1 K/mm3 (1.8-7.7) H 02/27/17 06:15 Band Neutrophils # 0.0 K/mm3 02/27/17 06:15 Lymphocytes # (Manual) 6.2 K/mm3 (1.2-5.4) H 02/27/17 06:15 Abs React Lymphs (Man) 0.2 K/mm3 02/27/17 06:15 Monocytes # (Manual) 1.2 K/mm3 (0.0-0.8) H 02/27/17 06:15 Eosinophils # (Manual) 1.9 K/mm3 (0.0-0.4) H 02/27/17 06:15 Basophils # (Manual) 0.0 K/mm3 (0.0-0.1) 02/27/17 06:15 Metamyelocytes # 0.0 K/mm3 02/27/17 06:15 Myelocytes # 0.0 K/mm3 02/27/17 06:15 Promyelocytes # 0.0 K/mm3 02/27/17 06:15 Blast Cells # 0.0 K/mm3 02/27/17 06:15 WBC Morphology Not Reportable 02/27/17 06:15 Hypersegmented Neuts Not Reportable 02/27/17 06:15 Hyposegmented Neuts Not Reportable 02/27/17 06:15 Hypogranular Neuts Not Reportable 02/27/17 06:15 Smudge Cells Not Reportable 02/27/17 06:15 Toxic Granulation Not Reportable 02/27/17 06:15 Toxic Vacuolation Not Reportable 02/27/17 06:15 Dohle Bodies Not Reportable 02/27/17 06:15 Pelger-Huet Anomaly Not Reportable 02/27/17 06:15 Christian Rods Not Reportable 02/27/17 06:15 Platelet Estimate Consistent w auto 02/27/17 06:15 Clumped Platelets Not Reportable 02/27/17 06:15 Plt Clumps, EDTA Not Reportable 02/27/17 06:15 Large Platelets Not Reportable 02/27/17 06:15 Giant Platelets Not Reportable 02/27/17 06:15 Platelet Satelliting Not Reportable 02/27/17 06:15 Plt Morphology Comment Not Reportable 02/27/17 06:15 RBC Morphology Not Reportable 02/27/17 06:15 Dimorphic RBCs Not Reportable 02/27/17 06:15 Polychromasia Not Reportable 02/27/17 06:15 Hypochromasia Few 02/27/17 06:15 Poikilocytosis 1+ 02/27/17 06:15 Anisocytosis 2+ 02/27/17 06:15 Microcytosis Not Reportable 02/27/17 06:15 Macrocytosis Not Reportable 02/27/17 06:15 Spherocytes Not Reportable 02/27/17 06:15 Pappenheimer Bodies Not Reportable 02/27/17 06:15 Sickle Cells 1+ 02/27/17 06:15 Target Cells Few 02/27/17 06:15 Tear Drop Cells Not Reportable 02/27/17 06:15 Ovalocytes Not Reportable 02/27/17 06:15 Helmet Cells Not Reportable 02/27/17 06:15 [place] Bodies Not Reportable 02/27/17 06:15 [place] Rings Not Reportable 02/27/17 06:15 [place] Cells Not Reportable 02/27/17 06:15 Bite Cells Not Reportable 02/27/17 06:15 Crenated Cell Not Reportable 02/27/17 06:15 Elliptocytes 1+ 02/27/17 06:15 Acanthocytes (Spur) Not Reportable 02/27/17 06:15 Rouleaux Not Reportable 02/27/17 06:15 Hemoglobin C Crystals Not Reportable 02/27/17 06:15 Schistocytes Not Reportable 02/27/17 06:15 Malaria parasites Not Reportable 02/27/17 06:15 Percent Retic 11.49 % (0.78-2.58) H 02/26/17 19:45 You Bodies Not Reportable 02/27/17 06:15 Hem Pathologist Commnt No 02/27/17 06:15 Sodium 139 mmol/L (137-145) 02/27/17 06:15 Potassium 3.9 mmol/L (3.6-5.0) 02/27/17 06:15 Chloride 100.6 mmol/L (98-107) 02/27/17 06:15 Carbon Dioxide 24 mmol/L (22-30) 02/27/17 06:15 Anion Gap 18 mmol/L 02/27/17 06:15 BUN 12 mg/dL (9-20) 02/27/17 06:15 Creatinine 0.4 mg/dL (0.8-1.5) L 02/27/17 06:15 Estimated GFR > 60 ml/min 02/27/17 06:15 BUN/Creatinine Ratio 30.00 % 02/27/17 06:15 Glucose 113 mg/dL (75-100) H 02/27/17 06:15 Calcium 8.8 mg/dL (8.4-10.2) 02/27/17 06:15 Ferritin 2000.0 ng/mL (13.0-400.0) H 02/27/17 00:31 Total Bilirubin 5.60 mg/dL (0.1-1.2) H 02/27/17 06:15 AST 97 units/L (5-40) H 02/27/17 06:15 ALT 109 units/L (7-56) H 02/27/17 06:15 Alkaline Phosphatase 156 units/L (35-129) H 02/27/17 06:15 Total Protein 7.2 g/dL (6.3-8.2) 02/27/17 06:15 Albumin 4.2 g/dL (3.9-5) 02/27/17 06:15 Albumin/Globulin Ratio 1.4 % 02/27/17 06:15 Blood Type O POSITIVE 02/26/17 21:30 Antibody Screen TNR 02/26/17 21:30 JAIRO Antibody Screen Negative 02/26/17 21:30 Crossmatch See Detail 02/26/17 21:30
[2017-02-28 11:44] LABS: Hematocrit 21.4 % (35.5-45.6); Hemoglobin 7.5 gm/dl (11.8-15.2); Mean Corpuscular HGB Conc 35 % (32-34); Mean Corpuscular Hemoglobin 34 pg (28-32); Mean Corpuscular Volume 96 fl (84-94); Platelet Count 226 K/mm3 (140-440); Red Blood Count 2.23 M/mm3 (3.65-5.03); White Blood Count 15.9 K/mm3 (4.5-11.0)
[2017-02-28 11:55] LABS: Red Cell Distribution Width 22.1 % (13.2-15.2)
[2017-02-28 12:15] LABS: Anion Gap 21 mmol/L; Blood Urea Nitrogen 14 mg/dL (9-20); Calcium 8.8 mg/dL (8.4-10.2); Carbon Dioxide 22 mmol/L (22-30); Chloride 104.7 mmol/L (98-107); Potassium 4.7 mmol/L (3.6-5.0); Sodium 143 mmol/L (137-145)
[2017-02-28 12:25] LABS: Glucose 90 mg/dL (75-100)
[2017-02-28 14:24] LABS: Basophils % (Manual) 0 % (0.0-1.8); Blastocytes % (Manual) 0 %
[2017-02-28 14:30] LABS: Anisocytosis 2+; Poikilocytosis 1+
[2017-02-28 14:31] LABS: Diff Status Complete; Elliptocytes 1+; Platelet Estimate Consistent w Auto; Sickle Cells 1+; Target Cells Few
--- NOTE | 2017-02-28 16:29 | Consultation ---
History of Present Illness - Reason for Consult Consult date: 02/28/17 - History of Present Illness Patient seen/examined, labs reviewed, case d/w him. The LFTS still abn, michelle the alkaline phos.His hgb improved some following transfusion, but will need till perhaps tomorrow to see the leveling up level before d/c. He is currently on desf. Past History Past Medical History: anemia, other (sickle cellckle cell pain crisis) Past Surgical History: cholecystectomy, hernia repair, Other (Splenectomy) Social history: full code. denies: smoking, alcohol abuse, prescription drug abuse, IV drug use Family history: no significant family history, other (Sickle cell in both sides of cousins) Medications and Allergies Allergies Allergy/AdvReac Type Severity Reaction Status Date / Time ceftriaxone sodium Allergy Unknown Verified 10/25/15 10:46 [From Rocephin] meperidine HCl [From Demerol] Allergy Unknown Verified 10/25/15 10:46 Home Medications Medication Instructions Recorded Confirmed Last Taken Type Carvedilol [Coreg] 12.5 mg PO BID #60 tablet 02/28/17 Unknown Rx Folic Acid [Folvite] 1 mg PO QDAY #30 tablet 02/28/17 Unknown Rx HYDROcodone/APAP 7.5-325 [[place] 1 each PO Q6HR PRN #20 tablet 02/28/17 Unknown Rx 7.5-325 mg TAB] Losartan [Cozaar] 25 mg PO QDAY #30 tablet 02/28/17 Unknown Rx Active Meds: Active Medications Acetaminophen/Hydrocodone Bitart ([place] 7.5/325) 1 each PO Q6HR PRN PRN Reason: Pain Carvedilol (Coreg) 12.5 mg PO BID [facility] Last Admin: 02/28/17 11:11 Dose: 12.5 mg Diphenhydramine HCl (Benadryl) 12.5 mg IV Q3H PRN PRN Reason: Itching Last Admin: 02/28/17 14:04 Dose: 12.5 mg Folic Acid (Folvite) 1 mg PO QDAY [facility] Last Admin: 02/28/17 11:11 Dose: 1 mg Hydromorphone HCl (Dilaudid) 2 mg IV Q3H PRN PRN Reason: Pain, Moderate (4-6) Last Admin: 02/28/17 14:05 Dose: 2 mg Sodium Chloride (Nacl 0.9% 1000 Ml) 1,000 mls @ 75 mls/hr IV DIRECT [facility] Last Admin: 02/27/17 16:32 Dose: 75 mls/hr Deferoxamine Mesylate 2,950 mg (/ Sodium Chloride) 250 mls @ 62.5 mls/hr IV Q24H [facility] Stop: 03/04/17 23:59 Losartan Potassium (Cozaar) 25 mg PO QDAY [facility] Last Admin: 02/28/17 11:12 Dose: 25 mg Review of Systems Constitutional: chronic pain Musculoskeletal: low back pain Exam - Constitutional Vitals: Temp Pulse Resp BP Pulse Ox 98.0 F 80 18 130/80 97 02/28/17 08:05 02/28/17 11:11 02/28/17 08:05 02/28/17 11:11 02/28/17 08:05 General appearance: Present: mild distress, well-nourished - EENT Eyes: Present: PERRL ENT: hearing intact, clear oral mucosa - Neck Neck: Present: supple, normal ROM - Respiratory Respiratory effort: normal Respiratory: bilateral: CTA - Cardiovascular Heart Sounds: Present: S1 & S2. Absent: rub, click - Extremities Extremities: pulses symmetrical, No edema Peripheral Pulses: within normal limits - Abdominal General gastrointestinal: Present: soft, non-tender, non-distended, normal bowel sounds Male genitourinary: Present: deferred - Rectal Rectal Exam: deferred - Integumentary Integumentary: Present: clear, warm, dry - Musculoskeletal Musculoskeletal: gait normal, strength equal bilaterally - Psychiatric Psychiatric: appropriate mood/affect, intact judgment & insight - Neurologic Neurologic: CNII-XII intact, moves all extremities Results - Labs CBC & Chem 7: 02/28/17 11:15 02/28/17 11:15 Labs: Abnormal lab results 02/26/17 02/28/17 02/28/17 Range/Units 21:30 11:15 11:15 WBC 15.9 H (4.5-11.0) K/mm3 RBC 2.23 L (3.65-5.03) M/mm3 Hgb 7.5 L (11.8-15.2) gm/dl Hct 21.4 L (35.5-45.6) % MCV 96 H (84-94) fl MCH 34 H (28-32) pg MCHC 35 H (32-34) % RDW 22.1 H (13.2-15.2) % Monocytes % (Manual) 11.0 H (0.0-7.3) % Eosinophils % (Manual) 7.0 H (0.0-4.3) % Nucleated RBC % 1.0 H (0.0-0.9) % Lymphocytes # (Manual) 5.6 H (1.2-5.4) K/mm3 Monocytes # (Manual) 1.7 H (0.0-0.8) K/mm3 Eosinophils # (Manual) 1.1 H (0.0-0.4) K/mm3 Creatinine 0.4 L (0.8-1.5) mg/dL Crossmatch See Detail Assessment and Plan - Patient Problems (1) Iron overload due to repeated red blood cell transfusions Current Visit: No Status: Acute (2) Sickle cell pain crisis Current Visit: Yes Status: Acute Plan to address problem: hydration, pain control. continue same. (3) Anemia Current Visit: Yes Status: Acute Qualifiers: Anemia type: A Iron deficiency anemia type: I Vitamin B12 deficiency anemia type: V Folate deficiency anemia type: F Bone marrow failure anemia type: B Hemolytic anemia type: H Other causes of anemia: O Chronic kidney disease stage: C Plan to address problem: see notes. Same . post transfusion. (4) Leukocytosis Current Visit: Yes Status: Acute Qualifiers: Leukocytosis type: L Plan to address problem: will do cultures, this may also be due to crisis. slight decrease., cultures negative. (5) Iron overload, transfusional Current Visit: Yes Status: Acute Plan to address problem: chelation. continue with desf.
[2017-02-28] MEDS: [UNRECOGNIZED DRUG - OTHER] IV SCH (21:01)
[2017-02-28] MEDS: NACL 0.9% IV SCH (21:01)
[2017-03-01] MEDS: BENADRYL IV PRN ×7 (01:04→21:12)
[2017-03-01] MEDS: DILAUDID IV PRN ×6 (01:05→18:00)
[2017-03-01] MEDS: NACL 0.9% 1000 ML 1,000 ML IV SCH ×2 (02:37→15:01)
--- NOTE | 2017-03-01 10:10 | Progress Note ---
Assessment and Plan Assessment and plan: Sickle cell pain crisis. Continue IV fluid hydration and pain control. Sickle cell anemia. Supportive care. Patient status post PRBC transfusion last evening. Iron overload due to repeated red blood cell transfusions. Patient undergoing chelation procedures per hematology. Leukocytosis. Etiology likely secondary to stress induced leukemoid reaction from sickle cell pain crisis. Cultures thus far are negative. - Patient Problems (1) Anemia Current Visit: Yes Status: Acute Qualifiers: Anemia type: A Iron deficiency anemia type: I Vitamin B12 deficiency anemia type: V Folate deficiency anemia type: F Bone marrow failure anemia type: B Hemolytic anemia type: H Other causes of anemia: O Chronic kidney disease stage: C (2) Iron overload, transfusional Current Visit: Yes Status: Acute (3) Sickle cell pain crisis Current Visit: Yes Status: Acute History Interval history: No new issues overnight. Patient still complains of knee pain. Hospitalist Physical - Constitutional Vitals: Temp Pulse Resp BP Pulse Ox 97.9 F 66 16 128/74 97 03/01/17 08:00 03/01/17 08:00 03/01/17 08:00 03/01/17 08:00 03/01/17 08:00 General appearance: Present: no acute distress, well-nourished Results - Labs CBC & Chem 7: 02/28/17 11:15 02/28/17 11:15 Labs: Laboratory Last Values WBC 15.9 K/mm3 (4.5-11.0) H 02/28/17 11:15 RBC 2.23 M/mm3 (3.65-5.03) L 02/28/17 11:15 Hgb 7.5 gm/dl (11.8-15.2) L 02/28/17 11:15 Hct 21.4 % (35.5-45.6) L 02/28/17 11:15 MCV 96 fl (84-94) H 02/28/17 11:15 MCH 34 pg (28-32) H 02/28/17 11:15 MCHC 35 % (32-34) H 02/28/17 11:15 RDW 22.1 % (13.2-15.2) H 02/28/17 11:15 Plt Count 226 K/mm3 (140-440) 02/28/17 11:15 Lymph # [place] 02/28/17 11:15 Add Manual Diff Complete 02/28/17 11:15 Total Counted 100 02/28/17 11:15 Seg Neuts % (Manual) 47.0 % (40.0-70.0) 02/28/17 11:15 Band Neutrophils % 0 % 02/28/17 11:15 Lymphocytes % (Manual) 35.0 % (13.4-35.0) 02/28/17 11:15 Reactive Lymphs % (Man) 0 % 02/28/17 11:15 Monocytes % (Manual) 11.0 % (0.0-7.3) H 02/28/17 11:15 Eosinophils % (Manual) 7.0 % (0.0-4.3) H 02/28/17 11:15 Basophils % (Manual) 0 % (0.0-1.8) 02/28/17 11:15 Metamyelocytes % 0 % 02/28/17 11:15 Myelocytes % 0 % 02/28/17 11:15 Promyelocytes % 0 % 02/28/17 11:15 Blast Cells % 0 % 02/28/17 11:15 Nucleated RBC % 1.0 % (0.0-0.9) H 02/28/17 11:15 Seg Neutrophils # Man 7.5 K/mm3 (1.8-7.7) 02/28/17 11:15 Band Neutrophils # 0.0 K/mm3 02/28/17 11:15 Lymphocytes # (Manual) 5.6 K/mm3 (1.2-5.4) H 02/28/17 11:15 Abs React Lymphs (Man) 0.0 K/mm3 02/28/17 11:15 Monocytes # (Manual) 1.7 K/mm3 (0.0-0.8) H 02/28/17 11:15 Eosinophils # (Manual) 1.1 K/mm3 (0.0-0.4) H 02/28/17 11:15 Basophils # (Manual) 0.0 K/mm3 (0.0-0.1) 02/28/17 11:15 Metamyelocytes # 0.0 K/mm3 02/28/17 11:15 Myelocytes # 0.0 K/mm3 02/28/17 11:15 Promyelocytes # 0.0 K/mm3 02/28/17 11:15 Blast Cells # 0.0 K/mm3 02/28/17 11:15 WBC Morphology Not Reportable 02/28/17 11:15 Hypersegmented Neuts Not Reportable 02/28/17 11:15 Hyposegmented Neuts Not Reportable 02/28/17 11:15 Hypogranular Neuts Not Reportable 02/28/17 11:15 Smudge Cells Not Reportable 02/28/17 11:15 Toxic Granulation Not Reportable 02/28/17 11:15 Toxic Vacuolation Not Reportable 02/28/17 11:15 Dohle Bodies Not Reportable 02/28/17 11:15 Pelger-Huet Anomaly Not Reportable 02/28/17 11:15 Christian Rods Not Reportable 02/28/17 11:15 Platelet Estimate Consistent w auto 02/28/17 11:15 Clumped Platelets Not Reportable 02/28/17 11:15 Plt Clumps, EDTA Not Reportable 02/28/17 11:15 Large Platelets Not Reportable 02/28/17 11:15 Giant Platelets Not Reportable 02/28/17 11:15 Platelet Satelliting Not Reportable 02/28/17 11:15 Plt Morphology Comment Not Reportable 02/28/17 11:15 RBC Morphology Not Reportable 02/28/17 11:15 Dimorphic RBCs Not Reportable 02/28/17 11:15 Polychromasia Not Reportable 02/28/17 11:15 Hypochromasia Not Reportable 02/28/17 11:15 Poikilocytosis 1+ 02/28/17 11:15 Anisocytosis 2+ 02/28/17 11:15 Microcytosis Not Reportable 02/28/17 11:15 Macrocytosis Not Reportable 02/28/17 11:15 Spherocytes Not Reportable 02/28/17 11:15 Pappenheimer Bodies Not Reportable 02/28/17 11:15 Sickle Cells 1+ 02/28/17 11:15 Target Cells Few 02/28/17 11:15 Tear Drop Cells Not Reportable 02/28/17 11:15 Ovalocytes Not Reportable 02/28/17 11:15 Helmet Cells Not Reportable 02/28/17 11:15 [place] Bodies Not Reportable 02/28/17 11:15 [place] Rings Not Reportable 02/28/17 11:15 [place] Cells Not Reportable 02/28/17 11:15 Bite Cells Not Reportable 02/28/17 11:15 Crenated Cell Not Reportable 02/28/17 11:15 Elliptocytes 1+ 02/28/17 11:15 Acanthocytes (Spur) Not Reportable 02/28/17 11:15 Rouleaux Not Reportable 02/28/17 11:15 Hemoglobin C Crystals Not Reportable 02/28/17 11:15 Schistocytes Not Reportable 02/28/17 11:15 Malaria parasites Not Reportable 02/28/17 11:15 Percent Retic 11.49 % (0.78-2.58) H 02/26/17 19:45 You Bodies Not Reportable 02/28/17 11:15 Hem Pathologist Commnt No 02/28/17 11:15 Sodium 143 mmol/L (137-145) 02/28/17 11:15 Potassium 4.7 mmol/L (3.6-5.0) D 02/28/17 11:15 Chloride 104.7 mmol/L (98-107) 02/28/17 11:15 Carbon Dioxide 22 mmol/L (22-30) 02/28/17 11:15 Anion Gap 21 mmol/L 02/28/17 11:15 BUN 14 mg/dL (9-20) 02/28/17 11:15 Creatinine 0.4 mg/dL (0.8-1.5) L 02/28/17 11:15 Estimated GFR > 60 ml/min 02/28/17 11:15 BUN/Creatinine Ratio 35.00 % 02/28/17 11:15 Glucose 90 mg/dL (75-100) 02/28/17 11:15 Calcium 8.8 mg/dL (8.4-10.2) 02/28/17 11:15 Ferritin 2000.0 ng/mL (13.0-400.0) H 02/27/17 00:31 Total Bilirubin 5.60 mg/dL (0.1-1.2) H 02/27/17 06:15 AST 97 units/L (5-40) H 02/27/17 06:15 ALT 109 units/L (7-56) H 02/27/17 06:15 Alkaline Phosphatase 156 units/L (35-129) H 02/27/17 06:15 Total Protein 7.2 g/dL (6.3-8.2) 02/27/17 06:15 Albumin 4.2 g/dL (3.9-5) 02/27/17 06:15 Albumin/Globulin Ratio 1.4 % 02/27/17 06:15 Blood Type O POSITIVE 02/26/17 21:30 Antibody Screen TNR 02/26/17 21:30 JAIRO Antibody Screen Negative 02/26/17 21:30 Crossmatch See Detail 02/26/17 21:30
[2017-03-01] MEDS: COREG PO SCH ×2 (10:25→21:15)
[2017-03-01] MEDS: FOLVITE PO SCH (10:25)
[2017-03-01] MEDS: COZAAR PO SCH (10:26)
[2017-03-01] MEDS: NACL 0.9% IV SCH (20:18)
[2017-03-01] MEDS: [UNRECOGNIZED DRUG - OTHER] IV SCH (20:18)
[2017-03-01] MEDS: NORCO 7.5/325 PO PRN (21:14)
--- NOTE | 2017-03-01 22:51 | Consultation ---
History of Present Illness - Reason for Consult Consult date: 03/01/17 - History of Present Illness Patient seen/examined, labs reviewed, case d/w patient. He is tolerating Desferol ok, now on bag #2 or 3. HGB is fair post transfusion. Disposition will be as per you. Past History Past Medical History: anemia, other (sickle cellckle cell pain crisis) Past Surgical History: cholecystectomy, hernia repair, Other (Splenectomy) Social history: full code. denies: smoking, alcohol abuse, prescription drug abuse, IV drug use Family history: no significant family history, other (Sickle cell in both sides of cousins) Medications and Allergies Allergies Allergy/AdvReac Type Severity Reaction Status Date / Time ceftriaxone sodium Allergy Unknown Verified 10/25/15 10:46 [From Rocephin] meperidine HCl [From Demerol] Allergy Unknown Verified 10/25/15 10:46 Home Medications Medication Instructions Recorded Confirmed Last Taken Type Carvedilol [Coreg] 12.5 mg PO BID #60 tablet 02/28/17 Unknown Rx Folic Acid [Folvite] 1 mg PO QDAY #30 tablet 02/28/17 Unknown Rx HYDROcodone/APAP 7.5-325 [[place] 1 each PO Q6HR PRN #20 tablet 02/28/17 Unknown Rx 7.5-325 mg TAB] Losartan [Cozaar] 25 mg PO QDAY #30 tablet 02/28/17 Unknown Rx Active Meds: Active Medications Acetaminophen/Hydrocodone Bitart ([place] 7.5/325) 1 each PO Q6HR PRN PRN Reason: Pain Last Admin: 03/01/17 21:14 Dose: 1 each Carvedilol (Coreg) 12.5 mg PO BID [facility] Last Admin: 03/01/17 21:15 Dose: 12.5 mg Diphenhydramine HCl (Benadryl) 12.5 mg IV Q3H PRN PRN Reason: Itching Last Admin: 03/01/17 21:12 Dose: 12.5 mg Folic Acid (Folvite) 1 mg PO QDAY [facility] Last Admin: 03/01/17 10:25 Dose: 1 mg Hydromorphone HCl (Dilaudid) 2 mg IV Q3H PRN PRN Reason: Pain, Moderate (4-6) Last Admin: 03/01/17 18:00 Dose: 2 mg Sodium Chloride (Nacl 0.9% 1000 Ml) 1,000 mls @ 75 mls/hr IV DIRECT [facility] Last Admin: 03/01/17 15:01 Dose: 75 mls/hr Deferoxamine Mesylate 2,950 mg (/ Sodium Chloride) 250 mls @ 62.5 mls/hr IV Q24H [facility] Stop: 03/04/17 23:59 Last Admin: 03/01/17 20:18 Dose: 62.5 mls/hr Losartan Potassium (Cozaar) 25 mg PO QDAY [facility] Last Admin: 03/01/17 10:26 Dose: 25 mg Review of Systems Constitutional: chronic pain Musculoskeletal: low back pain Exam - Constitutional Vitals: Temp Pulse Resp BP Pulse Ox 98.2 F 68 18 122/76 97 03/01/17 15:34 03/01/17 15:34 03/01/17 21:14 03/01/17 15:34 03/01/17 15:34 General appearance: Present: mild distress, well-nourished - EENT Eyes: Present: PERRL ENT: hearing intact, clear oral mucosa - Neck Neck: Present: supple, normal ROM - Respiratory Respiratory effort: normal Respiratory: bilateral: CTA - Cardiovascular Heart Sounds: Present: S1 & S2. Absent: rub, click - Extremities Extremities: pulses symmetrical, No edema Peripheral Pulses: within normal limits - Abdominal General gastrointestinal: Present: soft, non-tender, non-distended, normal bowel sounds Male genitourinary: Present: deferred - Rectal Rectal Exam: deferred - Integumentary Integumentary: Present: clear, warm, dry - Musculoskeletal Musculoskeletal: gait normal, strength equal bilaterally - Psychiatric Psychiatric: appropriate mood/affect, intact judgment & insight - Neurologic Neurologic: CNII-XII intact, moves all extremities Results - Labs CBC & Chem 7: 02/28/17 11:15 02/28/17 11:15 Assessment and Plan - Patient Problems (1) Iron overload due to repeated red blood cell transfusions Current Visit: No Status: Acute (2) Sickle cell pain crisis Current Visit: Yes Status: Acute Plan to address problem: hydration, pain control. continue same. (3) Anemia Current Visit: Yes Status: Acute Qualifiers: Anemia type: A Iron deficiency anemia type: I Vitamin B12 deficiency anemia type: V Folate deficiency anemia type: F Bone marrow failure anemia type: B Hemolytic anemia type: H Other causes of anemia: O Chronic kidney disease stage: C Plan to address problem: see notes. Same . post transfusion. fairly stable. (4) Leukocytosis Current Visit: Yes Status: Acute Qualifiers: Leukocytosis type: L Plan to address problem: will do cultures, this may also be due to crisis. slight decrease., cultures negative. (5) Iron overload, transfusional Current Visit: Yes Status: Acute Plan to address problem: chelation. continue with desf.
[2017-03-02] MEDS: BENADRYL IV PRN ×4 (00:25→11:45)
[2017-03-02] MEDS: DILAUDID IV PRN ×4 (00:27→11:45)
[2017-03-02 05:05] LABS: Anion Gap 15 mmol/L; Blood Urea Nitrogen 9 mg/dL (9-20); Calcium 7.2 mg/dL (8.4-10.2); Carbon Dioxide 22 mmol/L (22-30); Chloride 105.3 mmol/L (98-107); Glucose 75 mg/dL (75-100); Potassium 3.6 mmol/L (3.6-5.0); Sodium 139 mmol/L (137-145)
[2017-03-02 05:08] LABS: Basophils % (Auto) 0.8 % (0.0-1.8); Eosinophils % (Auto) 10.2 % (0.0-4.3); Hemoglobin 6.2 gm/dl (11.8-15.2); Mean Corpuscular HGB Conc 34 % (32-34); Mean Corpuscular Hemoglobin 33 pg (28-32); Mean Corpuscular Volume 96 fl (84-94); Platelet Count 203 K/mm3 (140-440); Red Blood Count 1.91 M/mm3 (3.65-5.03); White Blood Count 13.1 K/mm3 (4.5-11.0)
[2017-03-02 05:12] LABS: Red Cell Distribution Width 22.8 % (13.2-15.2)
[2017-03-02 05:14] LABS: Hematocrit 18.2 % (35.5-45.6)
[2017-03-02] MEDS: NORCO 7.5/325 PO PRN (06:12)
[2017-03-02 06:35] LABS: Hematocrit 20.2 % (35.5-45.6); Hemoglobin 7.3 gm/dl (11.8-15.2)
[2017-03-02] MEDS: NACL 0.9% 1000 ML 1,000 ML IV SCH (08:40)
[2017-03-02] MEDS: COZAAR PO SCH (09:59)
[2017-03-02] MEDS: FOLVITE PO SCH (09:59)
[2017-03-02] MEDS: COREG PO SCH (09:59)
[2017-03-02 10:00] VITALS: BP 130/70
--- NOTE | 2017-03-02 12:31 | Discharge Summary ---
Providers - Providers Date of Admission: 02/26/17 17:42 Attending physician: MAGDA MCKEON MD 02/26/17 16:23 Consult to Physician [CONS] Routine Consulting Provider: DANIEL DE JESUS Reason For Exam: SICKLE CELL DISEASE WITH CRISIS. Place consult to:: DR. DE JESUS Notified:: . Phone number called:: [phone] Was contact made?: Yes If yes, spoke with:: DR. DE JESUS Time called:: 16:25 Comment:: all ready completed by someone else Primary care physician: DANIEL DE JESUS Hospitalization Disposition: - TO HOME OR SELFCARE Core Measure Documentation - Palliative Care Palliative Care/ Comfort Measures: Not Applicable Exam - Constitutional Vitals: Temp Pulse Resp BP Pulse Ox 97.9 F 80 18 130/70 96 03/02/17 08:00 03/02/17 09:59 03/02/17 08:00 03/02/17 09:59 03/02/17 08:00 Plan Follow up with: DANIEL DE JESUS DO [Primary Care Provider] - 7 Days Prescriptions: Carvedilol [Coreg] 12.5 mg PO BID #60 tablet Folic Acid [Folvite] 1 mg PO QDAY #30 tablet HYDROcodone/APAP 7.5-325 [[place] 7.5-325 mg TAB] 1 each PO Q6HR PRN #20 tablet PRN Reason: Pain Losartan [Cozaar] 25 mg PO QDAY #30 tablet
[2017-03-02] MEDS ORDERED: FLUSH HEPARIN IV ONE (13:00)
== END 2017-03-02 14:00 | disposition home or self-care (01) | DRG 640 ==
LOC: UNDOADMIN 16:18 → 3A 16:18
PROVIDERS: ADMIT Internal Medicine; ATTEND Internal Medicine
PROC: 30233N1 Transfusion of Nonautologous Red Blood Cells into Peripheral Vein, Percutaneous Approach (ICD-10-PCS; principal; 2017-02-27)
DX: E86.0 Dehydration (principal); D57.00 Hb-SS disease with crisis, unspecified; E83.111 Hemochromatosis due to repeated red blood cell transfusions; D72.829 Elevated white blood cell count, unspecified; D64.9 Anemia, unspecified; Z88.8 Allergy status to other drugs, medicaments and biological substances; Z90.49 Acquired absence of other specified parts of digestive tract
CPT/HCPCS: 36415; 80048; 80053; 82728; 85007; 85014; 85018; 85025; 85045; 85660; 86850; 86900; 86901; 86920; 87040; 87086; J0895; J1170; J1200; J1642; J7030; J7040; J7050; P9016

== ENCOUNTER 2017-05-03 12:13 | Inpatient (IN) | payer MEDICAID ==
[2017-05-03] MEDS ORDERED: DILAUDID IV PRN ×3 (12:38→15:18)
[2017-05-03] MEDS ORDERED: NACL 0.9% 500 ML 500 ML IV NR (13:05)
[2017-05-03] MEDS ORDERED: TYLENOL PO SCH (14:00)
[2017-05-03] MEDS: DILAUDID IV PRN ×3 (15:32→21:40)
[2017-05-03] MEDS: BENADRYL IV PRN ×3 (15:32→21:41)
[2017-05-03] MEDS: D5NS 0.2% 1,000 ML IV SCH (18:25)
[2017-05-03] MEDS ORDERED: TYLENOL PO PRN (20:14)
--- NOTE | 2017-05-03 21:13 | History and Physical Report ---
History of Present Illness Date of admission: 05/03/17 13:37 Chief complaint: Im hurting History of present illness: 31 YO Male with SSD presents to [facility] and directly admitted at the request of Dr. Abebe for evaluation. Pt states that he has been experiencing pain in his chest and shortness of breath for the past 5 days with worsening symptoms over the past 1 day. Pt seen and evaluated upon arrival. Pt denies fever, chills, palpitations, NVD, syncope, leg swelling, calf pain, hemoptysis, difficulty breathing, productive cough, or recent ill contacts. Past History Past Medical History: anemia, other (SCD) Past Surgical History: cholecystectomy, Other (splenectomy) Social history: single, lives with family. denies: smoking, alcohol abuse, prescription drug abuse, IV drug use Family history: other (SC trait) Medications and Allergies Allergies Allergy/AdvReac Type Severity Reaction Status Date / Time ceftriaxone sodium Allergy Unknown Verified 10/25/15 10:46 [From Rocephin] meperidine HCl [From Demerol] Allergy Unknown Verified 10/25/15 10:46 Home Medications Medication Instructions Recorded Confirmed Last Taken Type Carvedilol [Coreg] 12.5 mg PO BID #60 tablet 02/28/17 Unknown Rx Folic Acid [Folvite] 1 mg PO QDAY #30 tablet 02/28/17 Unknown Rx HYDROcodone/APAP 7.5-325 [[place] 1 each PO Q6HR PRN #20 tablet 02/28/17 Unknown Rx 7.5-325 mg TAB] Losartan [Cozaar] 25 mg PO QDAY #30 tablet 02/28/17 Unknown Rx Active Meds: Active Medications Acetaminophen (Tylenol) 650 mg PO ONCE WAYNE Last Admin: 05/03/17 20:16 Dose: 650 mg Acetaminophen (Tylenol) 650 mg PO Q6H PRN PRN Reason: Pain, Mild (1-3) Carvedilol (Coreg) 25 mg PO DAILY WAYNE Diphenhydramine HCl (Benadryl) 12.5 mg IV Q3H PRN PRN Reason: Itching Stop: 05/04/17 12:53 Last Admin: 05/03/17 18:25 Dose: 12.5 mg Diphenhydramine HCl (Benadryl) 12.5 mg IV Q4H PRN PRN Reason: Itching Folic Acid (Folvite) 1 mg PO QDAY [facility] Hydromorphone HCl (Dilaudid) 2 mg IV Q3H PRN PRN Reason: Pain Last Admin: 05/03/17 18:25 Dose: 2 mg Hydromorphone HCl (Dilaudid) 2 mg IV Q4H PRN PRN Reason: Pain Dextrose/Sodium Chloride (D5ns 0.2%) 1,000 mls @ 150 mls/hr IV DIRECT WAYNE Last Admin: 05/03/17 18:25 Dose: 150 mls/hr Sodium Chloride (Nacl 0.9% 500 Ml) 500 mls @ 0 mls/hr IV ONCE NR PRN Reason: As Directed Stop: 05/03/17 23:59 Last Admin: 05/03/17 20:02 Dose: 50 mls/hr Review of Systems Constitutional: chronic pain, no weight loss, no weight gain, no fever, no chills, no night sweats Ears, nose, mouth and throat: no ear pain, no ear discharge, no tinnitis, no decreased hearing, no nose pain, no nasal congestion, no nasal discharge, no sinus pressure Cardiovascular: no chest pain, no orthopnea, no palpitations, no rapid/ irregular heart beat, no edema, no syncope Respiratory: no cough, no cough with sputum, no excessive sputum, no hemoptysis Gastrointestinal: no nausea, no vomiting, no diarrhea, no constipation Genitourinary Male: no hematuria, no flank pain, no discharge, no urinary frequency, no urinary hesitancy, no nocturia Rectal: no incontinence, no bleeding, no itching Musculoskeletal: no shooting arm pain, no hot joints, no morning stiffness, no muscle weakness, no muscle cramps, no myalgias, no atrophy Integumentary: no rash, no pruritis, no redness, no sores, no wounds, no jaundice Neurological: no head injury, no transient paralysis, no paralysis, no weakness , no parathesias, no numbness, no seizures Psychiatric: no anxiety, no memory loss, no change in sleep habits, no sleep disturbances, no insomnia, no hypersomnia, no change in appetite, no change in libido Endocrine: no cold intolerance, no heat intolerance, no polyphagia, no excessive thirst, no polydipsia, no polyuria, no nocturia, no excessive sweating Hematologic/Lymphatic: no easy bruising, no easy bleeding Allergic/Immunologic: no urticaria, no allergic rhinitis, no wheezing Exam - Constitutional Vitals: Temp Pulse Resp BP Pulse Ox 98.3 F 67 16 127/79 93 05/03/17 15:11 05/03/17 15:11 05/03/17 15:11 05/03/17 15:11 05/03/17 15:11 General appearance: Present: mild distress - EENT Eyes: Present: PERRL ENT: hearing intact, clear oral mucosa - Neck Neck: Present: supple, normal ROM - Respiratory Respiratory effort: normal Respiratory: bilateral: CTA - Cardiovascular Heart Sounds: Present: S1 & S2. Absent: rub, click - Extremities Extremities: pulses symmetrical, No edema Peripheral Pulses: within normal limits - Abdominal General gastrointestinal: Present: soft, non-tender, non-distended, normal bowel sounds Male genitourinary: Present: normal - Integumentary Integumentary: Present: clear, warm, dry - Musculoskeletal Musculoskeletal: gait normal, strength equal bilaterally - Psychiatric Psychiatric: cooperative, agitated - Neurologic Neurologic: CNII-XII intact, moves all extremities Results - Labs Labs: Abnormal lab results 05/03/17 Range/Units 15:03 Crossmatch See Detail Assessment and Plan - Patient Problems (1) Sickle cell pain crisis Current Visit: No Status: Acute Plan to address problem: IVF, Pain control, Hemotology consulted, (2) Symptomatic anemia Current Visit: No Status: Acute Plan to address problem: PRBC transfusion, supportive care, (3) DVT prophylaxis Current Visit: No Status: Acute
--- NOTE | 2017-05-03 22:19 | Consultation ---
History of Present Illness - Reason for Consult Consult date: 05/03/17 Sickel pain crisis/anemia. Requesting physician: SHYAM HESTER - History of Present Illness Thank you for this consult, patient seen/examined ,record reviewed, case d/w him. first unit of PRBC infusing at this time w/o any problems. Patient seen, earlier, now admitted for sxs control, and management. Past History Past Medical History: anemia, other (SCD) Past Surgical History: cholecystectomy, Other (splenectomy) Social history: single, lives with family. denies: smoking, alcohol abuse, prescription drug abuse, IV drug use Family history: other (SC trait) Medications and Allergies Allergies Allergy/AdvReac Type Severity Reaction Status Date / Time ceftriaxone sodium Allergy Unknown Verified 10/25/15 10:46 [From Rocephin] meperidine HCl [From Demerol] Allergy Unknown Verified 10/25/15 10:46 Home Medications Medication Instructions Recorded Confirmed Last Taken Type Carvedilol [Coreg] 12.5 mg PO BID #60 tablet 02/28/17 Unknown Rx Folic Acid [Folvite] 1 mg PO QDAY #30 tablet 02/28/17 Unknown Rx HYDROcodone/APAP 7.5-325 [[place] 1 each PO Q6HR PRN #20 tablet 02/28/17 Unknown Rx 7.5-325 mg TAB] Losartan [Cozaar] 25 mg PO QDAY #30 tablet 02/28/17 Unknown Rx Active Meds: Active Medications Acetaminophen (Tylenol) 650 mg PO ONCE WAYNE Last Admin: 05/03/17 20:16 Dose: 650 mg Acetaminophen (Tylenol) 650 mg PO Q6H PRN PRN Reason: Pain, Mild (1-3) Carvedilol (Coreg) 25 mg PO DAILY WAYNE Diphenhydramine HCl (Benadryl) 12.5 mg IV Q3H PRN PRN Reason: Itching Stop: 05/04/17 12:53 Last Admin: 05/03/17 21:41 Dose: 12.5 mg Diphenhydramine HCl (Benadryl) 12.5 mg IV Q4H PRN PRN Reason: Itching Folic Acid (Folvite) 1 mg PO QDAY WAYNE Hydromorphone HCl (Dilaudid) 2 mg IV Q3H PRN PRN Reason: Pain Last Admin: 05/03/17 21:40 Dose: 2 mg Hydromorphone HCl (Dilaudid) 2 mg IV Q4H PRN PRN Reason: Pain Dextrose/Sodium Chloride (D5ns 0.2%) 1,000 mls @ 150 mls/hr IV DIRECT WAYNE Last Admin: 05/03/17 18:25 Dose: 150 mls/hr Sodium Chloride (Nacl 0.9% 500 Ml) 500 mls @ 0 mls/hr IV ONCE NR PRN Reason: As Directed Stop: 05/03/17 23:59 Last Admin: 05/03/17 20:02 Dose: 50 mls/hr Review of Systems Constitutional: chronic pain Musculoskeletal: low back pain Exam - Constitutional Vitals: Temp Pulse Resp BP Pulse Ox 98.3 F 67 16 127/79 93 05/03/17 15:11 05/03/17 15:11 05/03/17 15:11 05/03/17 15:11 05/03/17 15:11 General appearance: Present: mild distress, well-nourished - EENT Eyes: Present: PERRL ENT: hearing intact, clear oral mucosa - Neck Neck: Present: supple, normal ROM - Respiratory Respiratory effort: normal Respiratory: bilateral: CTA - Cardiovascular Heart Sounds: Present: S1 & S2. Absent: rub, click - Extremities Extremities: pulses symmetrical, No edema Peripheral Pulses: within normal limits - Abdominal General gastrointestinal: Present: soft, non-tender, non-distended, normal bowel sounds Male genitourinary: Present: deferred - Rectal Rectal Exam: deferred - Integumentary Integumentary: Present: clear, warm, dry - Musculoskeletal Musculoskeletal: gait normal, strength equal bilaterally - Psychiatric Psychiatric: appropriate mood/affect, intact judgment & insight - Neurologic Neurologic: CNII-XII intact, moves all extremities Results - Labs Labs: Abnormal lab results 05/03/17 Range/Units 15:03 Crossmatch See Detail Assessment and Plan - Patient Problems (1) Anemia Current Visit: No Status: Acute Qualifiers: Anemia type: A Iron deficiency anemia type: I Vitamin B12 deficiency anemia type: V Folate deficiency anemia type: F Bone marrow failure anemia type: B Hemolytic anemia type: H Other causes of anemia: O Chronic kidney disease stage: stage 2 (mild) Qualified Code(s): N18.2 - Chronic kidney disease, stage 2 (mild); D63.1 - Anemia in chronic kidney disease; D63.1 - Anemia in chronic kidney disease (2) Dehydration Current Visit: No Status: Acute Plan to address problem: hydration (3) Iron overload due to repeated red blood cell transfusions Current Visit: No Status: Acute Plan to address problem: will check levels in am, and address accordingly. (4) Sickle cell pain crisis Current Visit: Yes Status: Acute Plan to address problem: pain control. (5) Sickle cell anemia Current Visit: Yes Status: Acute Qualifiers: Sickle-cell associated disorders: S Plan to address problem: proceed with transfusion replacement.
[2017-05-04] MEDS: DILAUDID IV PRN ×7 (00:50→22:41)
[2017-05-04] MEDS: BENADRYL IV PRN ×7 (00:51→22:42)
[2017-05-04 08:37] LABS: Hematocrit 24.8 % (35.5-45.6); Hemoglobin 8.9 gm/dl (11.8-15.2); Mean Corpuscular HGB Conc 36 % (32-34); Mean Corpuscular Hemoglobin 34 pg (28-32); Mean Corpuscular Volume 94 fl (84-94); Red Blood Count 2.62 M/mm3 (3.65-5.03); Reticulocyte % 19.55 % (0.78-2.58); White Blood Count 14.1 K/mm3 (4.5-11.0)
[2017-05-04 08:39] LABS: Red Cell Distribution Width 20.2 % (13.2-15.2)
[2017-05-04 08:40] LABS: Platelet Count 238 K/mm3 (140-440)
[2017-05-04 09:01] LABS: Alanine Aminotransferase 65 units/L (7-56); Albumin 4.2 g/dL (3.9-5); Albumin/Globulin Ratio 1.6 %; Alkaline Phosphatase 114 units/L (35-129); Anion Gap 14 mmol/L; BUN/Creatinine Ratio 27; Blood Urea Nitrogen 8 mg/dL (9-20); Calcium 8.7 mg/dL (8.4-10.2); Carbon Dioxide 26 mmol/L (22-30); Chloride 102.1 mmol/L (98-107); Glucose 88 mg/dL (75-100); Iron 173 ug/dL (49-181); Lactate Dehydrogenase 593 units/L (91-180); Potassium 4.3 mmol/L (3.6-5.0); Sodium 138 mmol/L (137-145); Total Protein 6.8 g/dL (6.3-8.2)
[2017-05-04 09:28] LABS: Total Iron Binding Capacity 172 mcg/dL (250-450)
[2017-05-04 09:58] LABS: Basophils % (Manual) 0 % (0.0-1.8); Blastocytes % (Manual) 0 %
[2017-05-04] MEDS: FOLVITE PO SCH (09:58)
[2017-05-04 09:59] LABS: Anisocytosis 2+; Polychromasia 2+; Sickle Cells 1+
[2017-05-04] MEDS: COREG PO SCH (09:59)
[2017-05-04 10:00] LABS: Diff Status Complete; Elliptocytes 1+
[2017-05-04] MEDS: D5NS 0.2% 1,000 ML IV SCH ×2 (13:20→19:51)
--- NOTE | 2017-05-04 16:41 | Progress Note ---
Assessment and Plan Sickle cell pain crisis IVF, Pain control, Hemotology consulted, Symptomatic anemia PRBC transfusion as needed, cont supportive care, DVT prophylaxis SCD Subjective Date of service: 05/04/17 Interval history: Pt seen and examined c/o generalized bodyache Objective - Constitutional Vitals: Vital Signs - 12hr 05/04/17 05/04/17 08:37 09:59 Temperature 97.7 F Pulse Rate 61 72 Respiratory 18 Rate Blood Pressure 124/79 120/70 O2 Sat by Pulse 94 Oximetry General appearance: Present: no acute distress, well-nourished - EENT Eyes: PERRL, EOM intact ENT: hearing intact, clear oral mucosa Ears: bilateral: normal - Neck Neck: supple, normal ROM - Respiratory Respiratory effort: normal Respiratory: bilateral: CTA - Cardiovascular Rhythm: regular Heart Sounds: Present: S1 & S2. Absent: gallop, rub Extremities: pulses intact, No edema, normal color, Full ROM - Gastrointestinal General gastrointestinal: Present: soft, non-tender, non-distended, normal bowel sounds - Integumentary Integumentary: clear, warm, dry - Musculoskeletal Musculoskeletal: 1, strength equal bilaterally - Neurologic Neurologic: moves all extremities - Psychiatric Psychiatric: memory intact, appropriate mood/affect, intact judgment & insight - Labs CBC & Chem 7: 05/05/17 07:15 05/05/17 07:15 Labs: Abnormal lab results 05/03/17 05/04/17 05/04/17 Range/Units 15:03 05:00 05:00 WBC 14.1 H (4.5-11.0) K/mm3 RBC 2.62 L (3.65-5.03) M/mm3 Hgb 8.9 L (11.8-15.2) gm/dl Hct 24.8 L (35.5-45.6) % MCH 34 H (28-32) pg MCHC 36 H (32-34) % RDW 20.2 H (13.2-15.2) % Monocytes % (Manual) 15.0 H (0.0-7.3) % Eosinophils % (Manual) 6.0 H (0.0-4.3) % Seg Neutrophils # Man 8.0 H (1.8-7.7) K/mm3 Monocytes # (Manual) 2.1 H (0.0-0.8) K/mm3 Eosinophils # (Manual) 0.8 H (0.0-0.4) K/mm3 Percent Retic 19.55 H (0.78-2.58) % BUN 8 L (9-20) mg/dL Creatinine 0.3 L (0.8-1.5) mg/dL TIBC 172 L (250-450) mcg/dL Ferritin (13.0-400.0) ng/mL Total Bilirubin 4.90 H (0.1-1.2) mg/dL AST 81 H (5-40) units/L ALT 65 H (7-56) units/L Lactate Dehydrogenase 593 H (91-180) units/L Crossmatch See Detail 05/04/17 Range/Units 05:00 WBC (4.5-11.0) K/mm3 RBC (3.65-5.03) M/mm3 Hgb (11.8-15.2) gm/dl Hct (35.5-45.6) % MCH (28-32) pg MCHC (32-34) % RDW (13.2-15.2) % Monocytes % (Manual) (0.0-7.3) % Eosinophils % (Manual) (0.0-4.3) % Seg Neutrophils # Man (1.8-7.7) K/mm3 Monocytes # (Manual) (0.0-0.8) K/mm3 Eosinophils # (Manual) (0.0-0.4) K/mm3 Percent Retic (0.78-2.58) % BUN (9-20) mg/dL Creatinine (0.8-1.5) mg/dL TIBC (250-450) mcg/dL Ferritin 6255.0 H (13.0-400.0) ng/mL Total Bilirubin (0.1-1.2) mg/dL AST (5-40) units/L ALT (7-56) units/L Lactate Dehydrogenase (91-180) units/L Crossmatch
--- NOTE | 2017-05-04 22:58 | Progress Note ---
Assessment and Plan - Patient Problems (1) Anemia Current Visit: No Status: Acute Qualifiers: Anemia type: A Iron deficiency anemia type: I Vitamin B12 deficiency anemia type: V Folate deficiency anemia type: F Bone marrow failure anemia type: B Hemolytic anemia type: H Other causes of anemia: O Chronic kidney disease stage: stage 2 (mild) Qualified Code(s): N18.2 - Chronic kidney disease, stage 2 (mild); D63.1 - Anemia in chronic kidney disease; D63.1 - Anemia in chronic kidney disease (2) Dehydration Current Visit: No Status: Acute Plan to address problem: hydration (3) Iron overload due to repeated red blood cell transfusions Current Visit: No Status: Acute Plan to address problem: will check levels in am, and address accordingly. (4) Sickle cell pain crisis Current Visit: Yes Status: Acute Plan to address problem: pain control. (5) Sickle cell anemia Current Visit: Yes Status: Acute Qualifiers: Sickle-cell associated disorders: S Plan to address problem: proceed with transfusion replacement. Subjective Date of service: 05/04/17 Interval history: Patient seen/examined,resting in bed, C/o pain 02/08, retic count extremely higher today. Ferretin /iron high also due to chronic overload. will chelate . Objective - Constitutional Vitals: Vital Signs - 12hr 05/04/17 17:09 Temperature 98.6 F Pulse Rate 61 Respiratory 16 Rate Blood Pressure 123/77 O2 Sat by Pulse 97 Oximetry General appearance: Present: mild distress, well-nourished - EENT Eyes: PERRL, EOM intact ENT: hearing intact, clear oral mucosa Ears: bilateral: normal - Neck Neck: supple, normal ROM - Respiratory Respiratory effort: normal Respiratory: bilateral: CTA - Cardiovascular Rhythm: regular Heart Sounds: Present: S1 & S2. Absent: gallop, rub Extremities: pulses intact, No edema, normal color, Full ROM - Gastrointestinal General gastrointestinal: Present: soft, non-tender, non-distended, normal bowel sounds - Genitourinary Male genitourinary: deferred - Integumentary Integumentary: clear, warm, dry - Musculoskeletal Musculoskeletal: 1, strength equal bilaterally - Neurologic Neurologic: moves all extremities - Psychiatric Psychiatric: memory intact, appropriate mood/affect, intact judgment & insight - Labs CBC & Chem 7: 05/04/17 05:00 05/04/17 05:00 Labs: Abnormal lab results 05/03/17 05/04/17 05/04/17 Range/Units 15:03 05:00 05:00 WBC 14.1 H (4.5-11.0) K/mm3 RBC 2.62 L (3.65-5.03) M/mm3 Hgb 8.9 L (11.8-15.2) gm/dl Hct 24.8 L (35.5-45.6) % MCH 34 H (28-32) pg MCHC 36 H (32-34) % RDW 20.2 H (13.2-15.2) % Monocytes % (Manual) 15.0 H (0.0-7.3) % Eosinophils % (Manual) 6.0 H (0.0-4.3) % Seg Neutrophils # Man 8.0 H (1.8-7.7) K/mm3 Monocytes # (Manual) 2.1 H (0.0-0.8) K/mm3 Eosinophils # (Manual) 0.8 H (0.0-0.4) K/mm3 Percent Retic 19.55 H (0.78-2.58) % BUN 8 L (9-20) mg/dL Creatinine 0.3 L (0.8-1.5) mg/dL TIBC 172 L (250-450) mcg/dL Ferritin (13.0-400.0) ng/mL Total Bilirubin 4.90 H (0.1-1.2) mg/dL AST 81 H (5-40) units/L ALT 65 H (7-56) units/L Lactate Dehydrogenase 593 H (91-180) units/L Crossmatch See Detail 05/04/17 Range/Units 05:00 WBC (4.5-11.0) K/mm3 RBC (3.65-5.03) M/mm3 Hgb (11.8-15.2) gm/dl Hct (35.5-45.6) % MCH (28-32) pg MCHC (32-34) % RDW (13.2-15.2) % Monocytes % (Manual) (0.0-7.3) % Eosinophils % (Manual) (0.0-4.3) % Seg Neutrophils # Man (1.8-7.7) K/mm3 Monocytes # (Manual) (0.0-0.8) K/mm3 Eosinophils # (Manual) (0.0-0.4) K/mm3 Percent Retic (0.78-2.58) % BUN (9-20) mg/dL Creatinine (0.8-1.5) mg/dL TIBC (250-450) mcg/dL Ferritin 6255.0 H (13.0-400.0) ng/mL Total Bilirubin (0.1-1.2) mg/dL AST (5-40) units/L ALT (7-56) units/L Lactate Dehydrogenase (91-180) units/L Crossmatch
[2017-05-04] MEDS ORDERED: BENADRYL IV PRN (23:31)
[2017-05-05] MEDS: D5NS 0.2% 1,000 ML IV SCH (03:16)
[2017-05-05] MEDS: DILAUDID IV PRN ×5 (03:18→22:20)
[2017-05-05] MEDS: BENADRYL IV PRN ×4 (03:18→22:21)
[2017-05-05 07:29] LABS: Hematocrit 24.8 % (35.5-45.6); Mean Corpuscular HGB Conc 36 % (32-34); Mean Corpuscular Hemoglobin 34 pg (28-32); Mean Corpuscular Volume 94 fl (84-94); Red Blood Count 2.64 M/mm3 (3.65-5.03); White Blood Count 11.7 K/mm3 (4.5-11.0)
[2017-05-05 07:30] LABS: Reticulocyte % 19.86 % (0.78-2.58)
[2017-05-05 07:33] LABS: Platelet Count 179 K/mm3 (140-440); Red Cell Distribution Width 23.3 % (13.2-15.2)
[2017-05-05 07:54] LABS: Anion Gap 15 mmol/L; BUN/Creatinine Ratio 27; Blood Urea Nitrogen 8 mg/dL (9-20); Calcium 8.3 mg/dL (8.4-10.2); Carbon Dioxide 25 mmol/L (22-30); Chloride 103.4 mmol/L (98-107); Glucose 84 mg/dL (75-100); Potassium 4.3 mmol/L (3.6-5.0); Sodium 139 mmol/L (137-145)
[2017-05-05 09:52] LABS: Anisocytosis 2+; Basophils % (Manual) 0 % (0.0-1.8); Blastocytes % (Manual) 0 %
[2017-05-05 09:53] LABS: Diff Status Complete; Elliptocytes 1+; Polychromasia 2+; Sickle Cells 1+
[2017-05-05] MEDS: COREG PO SCH (10:19)
[2017-05-05] MEDS: FOLVITE PO SCH (10:19)
[2017-05-05] MEDS: Desferal 3,000 MG in NACL 0.9% 250ML 250 ML IV SCH (10:19)
[2017-05-05] MEDS ORDERED: CATHFLO IV ONE ×2 (12:00→20:00)
--- NOTE | 2017-05-05 16:18 | Progress Note ---
Assessment and Plan /Sickle cell pain crisis cont IVF, Pain control, Hemotology consulted, monitor h and H /Symptomatic anemia PRBC transfusion as needed, cont supportive care, getting iron transfusion /DVT prophylaxis SCD Subjective Date of service: 05/05/17 Interval history: Pt seen and examined c/o generalized bodyache getting iron transfusion Objective - Exam Narrative Exam: General appearance: Present: no acute distress, well-nourished - EENT Eyes: PERRL, EOM intact ENT: hearing intact, clear oral mucosa Ears: bilateral: normal - Neck Neck: supple, normal ROM - Respiratory Respiratory effort: normal Respiratory: bilateral: CTA - Cardiovascular Rhythm: regular Heart Sounds: Present: S1 & S2. Absent: gallop, rub Extremities: pulses intact, No edema, normal color, Full ROM - Gastrointestinal General gastrointestinal: Present: soft, non-tender, non-distended, normal bowel sounds - Integumentary Integumentary: clear, warm, dry - Musculoskeletal Musculoskeletal: 1, strength equal bilaterally - Neurologic Neurologic: moves all extremities - Psychiatric Psychiatric: memory intact, appropriate mood/affect, intact judgment & insight - Constitutional Vitals: Vital Signs - 12hr 05/05/17 05/05/17 08:06 10:19 Temperature 98.4 F Pulse Rate 61 64 Respiratory 18 Rate Blood Pressure 135/88 135/88 O2 Sat by Pulse 98 Oximetry - Labs CBC & Chem 7: 05/06/17 05:02 05/06/17 05:02 Labs: Abnormal lab results 05/05/17 05/05/17 Range/Units 07:15 07:15 WBC 11.7 H (4.5-11.0) K/mm3 RBC 2.64 L (3.65-5.03) M/mm3 Hgb 9.0 L (11.8-15.2) gm/dl Hct 24.8 L (35.5-45.6) % MCH 34 H (28-32) pg MCHC 36 H (32-34) % RDW 23.3 H (13.2-15.2) % Monocytes % (Manual) 14.0 H (0.0-7.3) % Eosinophils % (Manual) 5.0 H (0.0-4.3) % Nucleated RBC % 2.0 H (0.0-0.9) % Monocytes # (Manual) 1.6 H (0.0-0.8) K/mm3 Eosinophils # (Manual) 0.6 H (0.0-0.4) K/mm3 Percent Retic 19.86 H (0.78-2.58) % BUN 8 L (9-20) mg/dL Creatinine 0.3 L (0.8-1.5) mg/dL Calcium 8.3 L (8.4-10.2) mg/dL
--- NOTE | 2017-05-05 21:13 | Progress Note ---
Assessment and Plan - Patient Problems (1) Anemia Current Visit: No Status: Acute Qualifiers: Anemia type: A Iron deficiency anemia type: I Vitamin B12 deficiency anemia type: V Folate deficiency anemia type: F Bone marrow failure anemia type: B Hemolytic anemia type: H Other causes of anemia: O Chronic kidney disease stage: stage 2 (mild) Qualified Code(s): N18.2 - Chronic kidney disease, stage 2 (mild); D63.1 - Anemia in chronic kidney disease; D63.1 - Anemia in chronic kidney disease (2) Dehydration Current Visit: No Status: Acute Plan to address problem: hydration (3) Iron overload due to repeated red blood cell transfusions Current Visit: No Status: Acute Plan to address problem: will check levels in am, and address accordingly. Continue with Desferol (4) Sickle cell pain crisis Current Visit: Yes Status: Acute Plan to address problem: pain control. (5) Sickle cell anemia Current Visit: Yes Status: Acute Qualifiers: Sickle-cell associated disorders: S Plan to address problem: proceed with transfusion replacement. Subjective Date of service: 05/05/17 Interval history: Patient seen/examined,resting in bed, C/o pain 02/08, retic count extremely higher today. Ferretin /iron high also due to chronic overload. will chelate . Patient seen, resting in bed, labs reviewed, retic count still elevated. Objective - Constitutional Vitals: Vital Signs - 12hr 05/05/17 05/05/17 10:19 15:59 Temperature 98.8 F Pulse Rate 64 60 Respiratory 20 Rate Blood Pressure 135/88 138/74 O2 Sat by Pulse 95 Oximetry General appearance: Present: mild distress, well-nourished - EENT Eyes: PERRL, EOM intact ENT: hearing intact, clear oral mucosa Ears: bilateral: normal - Neck Neck: supple, normal ROM - Respiratory Respiratory effort: normal Respiratory: bilateral: CTA - Cardiovascular Rhythm: regular Heart Sounds: Present: S1 & S2. Absent: gallop, rub Extremities: pulses intact, No edema, normal color, Full ROM - Gastrointestinal General gastrointestinal: Present: soft, non-tender, non-distended, normal bowel sounds Rectal Exam: deferred - Genitourinary Male genitourinary: deferred - Integumentary Integumentary: clear, warm, dry - Musculoskeletal Musculoskeletal: 1, strength equal bilaterally - Neurologic Neurologic: moves all extremities - Psychiatric Psychiatric: memory intact, appropriate mood/affect, intact judgment & insight - Labs CBC & Chem 7: 05/05/17 07:15 05/05/17 07:15 Labs: Abnormal lab results 05/05/17 05/05/17 Range/Units 07:15 07:15 WBC 11.7 H (4.5-11.0) K/mm3 RBC 2.64 L (3.65-5.03) M/mm3 Hgb 9.0 L (11.8-15.2) gm/dl Hct 24.8 L (35.5-45.6) % MCH 34 H (28-32) pg MCHC 36 H (32-34) % RDW 23.3 H (13.2-15.2) % Monocytes % (Manual) 14.0 H (0.0-7.3) % Eosinophils % (Manual) 5.0 H (0.0-4.3) % Nucleated RBC % 2.0 H (0.0-0.9) % Monocytes # (Manual) 1.6 H (0.0-0.8) K/mm3 Eosinophils # (Manual) 0.6 H (0.0-0.4) K/mm3 Percent Retic 19.86 H (0.78-2.58) % BUN 8 L (9-20) mg/dL Creatinine 0.3 L (0.8-1.5) mg/dL Calcium 8.3 L (8.4-10.2) mg/dL
[2017-05-06] MEDS: DILAUDID IV PRN ×5 (03:48→20:45)
[2017-05-06] MEDS: BENADRYL IV PRN ×4 (03:49→22:24)
[2017-05-06 05:33] LABS: Basophils % (Auto) 0.7 % (0.0-1.8); Eosinophils % (Auto) 6.7 % (0.0-4.3); Hematocrit 25.1 % (35.5-45.6); Hemoglobin 8.9 gm/dl (11.8-15.2); Mean Corpuscular HGB Conc 36 % (32-34); Mean Corpuscular Hemoglobin 33 pg (28-32); Mean Corpuscular Volume 94 fl (84-94); Red Blood Count 2.68 M/mm3 (3.65-5.03); Reticulocyte % 20.38 % (0.78-2.58); White Blood Count 13.2 K/mm3 (4.5-11.0)
[2017-05-06 05:36] LABS: Red Cell Distribution Width 22.5 % (13.2-15.2)
[2017-05-06 05:50] LABS: Platelet Count 236 K/mm3 (140-440)
[2017-05-06 05:54] LABS: Anion Gap 19 mmol/L; BUN/Creatinine Ratio 30; Blood Urea Nitrogen 9 mg/dL (9-20); Calcium 8.8 mg/dL (8.4-10.2); Carbon Dioxide 24 mmol/L (22-30); Chloride 99.9 mmol/L (98-107); Glucose 117 mg/dL (75-100); Potassium 4.4 mmol/L (3.6-5.0); Sodium 138 mmol/L (137-145)
[2017-05-06] MEDS: D5NS 0.2% 1,000 ML IV SCH ×3 (08:30→22:35)
[2017-05-06] MEDS: FOLVITE PO SCH (09:44)
[2017-05-06] MEDS: COREG PO SCH (09:44)
[2017-05-06] MEDS: Desferal 3,000 MG in NACL 0.9% 250ML 250 ML IV SCH (11:50)
--- NOTE | 2017-05-06 18:17 | Progress Note ---
Assessment and Plan /Sickle cell pain crisis cont IVF, Pain control, Hemotology consulted, monitor h and H, appears stable /Symptomatic anemia PRBC transfusion as needed, cont supportive care, getting Desferol transfusion /DVT prophylaxis SCD Subjective Date of service: 05/06/17 Interval history: Pt seen and examined Continue to c/o generalized bodyache getting Desferol transfusion Objective - Exam Narrative Exam: General appearance: Present: no acute distress, well-nourished - EENT Eyes: PERRL, EOM intact ENT: hearing intact, clear oral mucosa Ears: bilateral: normal - Neck Neck: supple, normal ROM - Respiratory Respiratory effort: normal Respiratory: bilateral: CTA - Cardiovascular Rhythm: regular Heart Sounds: Present: S1 & S2. Absent: gallop, rub Extremities: pulses intact, No edema, normal color, Full ROM - Gastrointestinal General gastrointestinal: Present: soft, non-tender, non-distended, normal bowel sounds - Integumentary Integumentary: clear, warm, dry - Musculoskeletal Musculoskeletal: 1, strength equal bilaterally - Neurologic Neurologic: moves all extremities - Psychiatric Psychiatric: memory intact, appropriate mood/affect, intact judgment & insight - Constitutional Vitals: Vital Signs - 12hr 05/06/17 05/06/17 05/06/17 09:22 09:24 09:44 Temperature Pulse Rate 64 64 Respiratory Rate Blood Pressure 125/78 125/78 O2 Sat by Pulse 98 Oximetry 05/06/17 15:32 Temperature 98.7 F Pulse Rate 63 Respiratory 18 Rate Blood Pressure 112/67 O2 Sat by Pulse 96 Oximetry - Labs CBC & Chem 7: 05/07/17 06:30 05/07/17 06:30 Labs: Abnormal lab results 05/06/17 05/06/17 Range/Units 05:02 05:02 WBC 13.2 H (4.5-11.0) K/mm3 RBC 2.68 L (3.65-5.03) M/mm3 Hgb 8.9 L (11.8-15.2) gm/dl Hct 25.1 L (35.5-45.6) % MCH 33 H (28-32) pg MCHC 36 H (32-34) % RDW 22.5 H (13.2-15.2) % [place] % (Auto) 13.2 H (0.0-7.3) % Eos % (Auto) 6.7 H (0.0-4.3) % [place] # 1.7 H (0.0-0.8) K/mm3 Eos # 0.9 H (0.0-0.4) K/mm3 Seg Neutrophils # 7.9 H (1.8-7.7) K/mm3 Percent Retic 20.38 H (0.78-2.58) % Creatinine 0.3 L (0.8-1.5) mg/dL Glucose 117 H (75-100) mg/dL
--- NOTE | 2017-05-06 21:53 | Progress Note ---
Assessment and Plan - Patient Problems (1) Anemia Current Visit: No Status: Acute Qualifiers: Anemia type: A Iron deficiency anemia type: I Vitamin B12 deficiency anemia type: V Folate deficiency anemia type: F Bone marrow failure anemia type: B Hemolytic anemia type: H Other causes of anemia: O Chronic kidney disease stage: stage 2 (mild) Qualified Code(s): N18.2 - Chronic kidney disease, stage 2 (mild); D63.1 - Anemia in chronic kidney disease; D63.1 - Anemia in chronic kidney disease (2) Dehydration Current Visit: No Status: Acute Plan to address problem: hydration (3) Iron overload due to repeated red blood cell transfusions Current Visit: No Status: Acute Plan to address problem: will check levels in am, and address accordingly. Continue with Desferol he is on bag #2. once pain controlled, may be d/c. by you. (4) Sickle cell pain crisis Current Visit: Yes Status: Acute Plan to address problem: pain control. need better pain control. (5) Sickle cell anemia Current Visit: Yes Status: Acute Qualifiers: Sickle-cell associated disorders: S Plan to address problem: proceed with transfusion replacement. stable. Subjective Date of service: 05/06/17 Interval history: Patient seen/examined,resting in bed, C/o pain 02/08, retic count extremely higher today. Ferretin /iron high also due to chronic overload. will chelate . Patient seen, resting in bed, labs reviewed, retic count still elevated. Patient seen/examined, resting in bed, desferol infusing. C/O pain in the back , retic count now increased to above 20., justifying continual crisis. Objective - Constitutional Vitals: Vital Signs - 12hr 05/06/17 05/06/17 15:32 20:43 Temperature 98.7 F 98.9 F Pulse Rate 63 71 Respiratory 18 18 Rate Blood Pressure 112/67 131/69 O2 Sat by Pulse 96 98 Oximetry General appearance: Present: mild distress, well-nourished - EENT Eyes: PERRL, EOM intact ENT: hearing intact, clear oral mucosa Ears: bilateral: normal - Neck Neck: supple, normal ROM - Respiratory Respiratory effort: normal Respiratory: bilateral: CTA - Cardiovascular Rhythm: regular Heart Sounds: Present: S1 & S2. Absent: gallop, rub Extremities: pulses intact, No edema, normal color, Full ROM - Gastrointestinal General gastrointestinal: Present: soft, non-tender, non-distended, normal bowel sounds - Genitourinary Male genitourinary: deferred - Integumentary Integumentary: clear, warm, dry - Musculoskeletal Musculoskeletal: 1, strength equal bilaterally - Neurologic Neurologic: moves all extremities - Psychiatric Psychiatric: memory intact, appropriate mood/affect, intact judgment & insight - Labs CBC & Chem 7: 05/06/17 05:02 05/06/17 05:02 Labs: Abnormal lab results 05/06/17 05/06/17 Range/Units 05:02 05:02 WBC 13.2 H (4.5-11.0) K/mm3 RBC 2.68 L (3.65-5.03) M/mm3 Hgb 8.9 L (11.8-15.2) gm/dl Hct 25.1 L (35.5-45.6) % MCH 33 H (28-32) pg MCHC 36 H (32-34) % RDW 22.5 H (13.2-15.2) % Cole % (Auto) 13.2 H (0.0-7.3) % Eos % (Auto) 6.7 H (0.0-4.3) % Cole # 1.7 H (0.0-0.8) K/mm3 Eos # 0.9 H (0.0-0.4) K/mm3 Seg Neutrophils # 7.9 H (1.8-7.7) K/mm3 Percent Retic 20.38 H (0.78-2.58) % Creatinine 0.3 L (0.8-1.5) mg/dL Glucose 117 H (75-100) mg/dL
[2017-05-06] MEDS ORDERED: DILAUDID IV ONE (21:55)
[2017-05-07] MEDS: DILAUDID IV PRN ×5 (01:51→19:33)
[2017-05-07] MEDS: BENADRYL IV PRN ×3 (03:57→19:34)
[2017-05-07] MEDS: D5NS 0.2% 1,000 ML IV SCH ×3 (05:13→22:33)
[2017-05-07 07:14] LABS: Anion Gap 15 mmol/L; Calcium 8.8 mg/dL (8.4-10.2); Carbon Dioxide 26 mmol/L (22-30); Chloride 99.5 mmol/L (98-107); Glucose 107 mg/dL (75-100); Potassium 4.5 mmol/L (3.6-5.0); Sodium 136 mmol/L (137-145)
[2017-05-07 07:56] LABS: Hematocrit 23.1 % (35.5-45.6); Hemoglobin 8.2 gm/dl (11.8-15.2); Mean Corpuscular HGB Conc 36 % (32-34); Mean Corpuscular Hemoglobin 33 pg (28-32); Mean Corpuscular Volume 93 fl (84-94); Platelet Count 214 K/mm3 (140-440); Red Blood Count 2.49 M/mm3 (3.65-5.03); Reticulocyte % 20.75 % (0.78-2.58); White Blood Count 12.2 K/mm3 (4.5-11.0)
[2017-05-07 08:39] LABS: BUN/Creatinine Ratio 25; Blood Urea Nitrogen 10 mg/dL (9-20)
[2017-05-07 08:46] LABS: Blastocytes % (Manual) 0 %
[2017-05-07 08:47] LABS: Anisocytosis 1+; Hypochromasia 1+; Sickle Cells 1+; Target Cells Few
[2017-05-07 08:48] LABS: Diff Status Complete; Large Platelets Few
[2017-05-07] MEDS: COREG PO SCH (10:05)
[2017-05-07] MEDS: Desferal 3,000 MG in NACL 0.9% 250ML 250 ML IV SCH (10:05)
[2017-05-07] MEDS: FOLVITE PO SCH (10:05)
[2017-05-07] MEDS ORDERED: PERCOCET 5/325 PO PRN (12:09)
--- NOTE | 2017-05-07 17:16 | Progress Note ---
Assessment and Plan /Sickle cell pain crisis cont IVF, Pain control, Hemotology following monitor h and H, hemoglobin noted to be 8.2 today /Symptomatic anemia PRBC transfusion as needed, cont supportive care, Status post unit of packed RBC transfusion on 05/03/2017 / Iron overload Due to multiple transfusion in the past and now getting Desferol transfusion /DVT prophylaxis SCD Subjective Date of service: 05/07/17 Interval history: Pt seen and examined Complain of more body aches today and bilateral knee pain Hemoglobin dropped to 8.2, discussed with cardiology and increase the coverage for pain medicine getting Desferol transfusion day 3 Objective - Exam Narrative Exam: General appearance: Present: no acute distress, well-nourished - EENT Eyes: PERRL, EOM intact ENT: hearing intact, clear oral mucosa Ears: bilateral: normal - Neck Neck: supple, normal ROM - Respiratory Respiratory effort: normal Respiratory: bilateral: CTA - Cardiovascular Rhythm: regular Heart Sounds: Present: S1 & S2. Absent: gallop, rub Extremities: pulses intact, No edema, normal color, Full ROM - Gastrointestinal General gastrointestinal: Present: soft, non-tender, non-distended, normal bowel sounds - Integumentary Integumentary: clear, warm, dry - Musculoskeletal Musculoskeletal: 1, no joint swelling - Neurologic Neurologic: moves all extremities - Psychiatric Psychiatric: memory intact, appropriate mood/affect, intact judgment & insight - Constitutional Vitals: Vital Signs - 12hr 05/07/17 05/07/17 05/07/17 07:28 10:00 10:05 Temperature 98.4 F Pulse Rate 60 60 Respiratory 20 Rate Blood Pressure 125/75 125/75 O2 Sat by Pulse 97 97 Oximetry - Labs CBC & Chem 7: 05/08/17 06:30 05/08/17 06:30 Labs: Abnormal lab results 05/07/17 05/07/17 Range/Units 06:30 06:30 WBC 12.2 H (4.5-11.0) K/mm3 RBC 2.49 L (3.65-5.03) M/mm3 Hgb 8.2 L (11.8-15.2) gm/dl Hct 23.1 L (35.5-45.6) % MCH 33 H (28-32) pg MCHC 36 H (32-34) % RDW 21.0 H (13.2-15.2) % Monocytes % (Manual) 12.0 H (0.0-7.3) % Eosinophils % (Manual) 5.0 H (0.0-4.3) % Nucleated RBC % 1.0 H (0.0-0.9) % Monocytes # (Manual) 1.5 H (0.0-0.8) K/mm3 Eosinophils # (Manual) 0.6 H (0.0-0.4) K/mm3 Percent Retic 20.75 H (0.78-2.58) % Sodium 136 L (137-145) mmol/L Creatinine 0.3 L (0.8-1.5) mg/dL Glucose 107 H (75-100) mg/dL
--- NOTE | 2017-05-07 21:36 | Progress Note ---
Assessment and Plan - Patient Problems (1) Anemia Current Visit: No Status: Acute Qualifiers: Anemia type: A Iron deficiency anemia type: I Vitamin B12 deficiency anemia type: V Folate deficiency anemia type: F Bone marrow failure anemia type: B Hemolytic anemia type: H Other causes of anemia: O Chronic kidney disease stage: stage 2 (mild) Qualified Code(s): N18.2 - Chronic kidney disease, stage 2 (mild); D63.1 - Anemia in chronic kidney disease; D63.1 - Anemia in chronic kidney disease (2) Dehydration Current Visit: No Status: Acute Plan to address problem: hydration (3) Iron overload due to repeated red blood cell transfusions Current Visit: No Status: Acute Plan to address problem: will check levels in am, and address accordingly. Continue with Desferol he is on bag #2. once pain controlled, may be d/c. by you. (4) Sickle cell pain crisis Current Visit: Yes Status: Acute Plan to address problem: pain control. need better pain control. (5) Sickle cell anemia Current Visit: Yes Status: Acute Qualifiers: Sickle-cell associated disorders: S Plan to address problem: proceed with transfusion replacement. stable. Subjective Date of service: 05/07/17 Interval history: Patient seen/examined,resting in bed, C/o pain 02/08, retic count extremely higher today. Ferretin /iron high also due to chronic overload. will chelate . Patient seen, resting in bed, labs reviewed, retic count still elevated. Patient seen/examined, resting in bed, desferol infusing. C/O pain in the back , retic count now increased to above 20., justifying continual crisis. Patient seen/examined, resting in bed, labs reviewed, case was d/w the primary team earlier today. ,and with patient now.Retic count count still elevated. once pain subsided, may d/c home as per you. Objective - Constitutional Vitals: Vital Signs - 12hr 05/07/17 05/07/17 05/07/17 10:00 10:05 15:39 Temperature 98.6 F Pulse Rate 60 61 Respiratory 20 Rate Blood Pressure 125/75 107/56 O2 Sat by Pulse 97 96 Oximetry General appearance: Present: mild distress, well-nourished - EENT Eyes: PERRL, EOM intact ENT: hearing intact, clear oral mucosa Ears: bilateral: normal - Neck Neck: supple, normal ROM - Respiratory Respiratory effort: normal Respiratory: bilateral: CTA - Cardiovascular Rhythm: regular Heart Sounds: Present: S1 & S2. Absent: gallop, rub Extremities: pulses intact, No edema, normal color, Full ROM - Gastrointestinal General gastrointestinal: Present: soft, non-tender, non-distended, normal bowel sounds Rectal Exam: deferred - Genitourinary Male genitourinary: deferred - Integumentary Integumentary: clear, warm, dry - Musculoskeletal Musculoskeletal: 1, strength equal bilaterally - Neurologic Neurologic: moves all extremities - Psychiatric Psychiatric: memory intact, appropriate mood/affect, intact judgment & insight - Labs CBC & Chem 7: 05/07/17 06:30 05/07/17 06:30 Labs: Abnormal lab results 05/07/17 05/07/17 Range/Units 06:30 06:30 WBC 12.2 H (4.5-11.0) K/mm3 RBC 2.49 L (3.65-5.03) M/mm3 Hgb 8.2 L (11.8-15.2) gm/dl Hct 23.1 L (35.5-45.6) % MCH 33 H (28-32) pg MCHC 36 H (32-34) % RDW 21.0 H (13.2-15.2) % Monocytes % (Manual) 12.0 H (0.0-7.3) % Eosinophils % (Manual) 5.0 H (0.0-4.3) % Nucleated RBC % 1.0 H (0.0-0.9) % Monocytes # (Manual) 1.5 H (0.0-0.8) K/mm3 Eosinophils # (Manual) 0.6 H (0.0-0.4) K/mm3 Percent Retic 20.75 H (0.78-2.58) % Sodium 136 L (137-145) mmol/L Creatinine 0.3 L (0.8-1.5) mg/dL Glucose 107 H (75-100) mg/dL
[2017-05-08] MEDS: BENADRYL IV PRN ×4 (01:15→18:16)
[2017-05-08] MEDS: DILAUDID IV PRN ×5 (01:16→21:25)
[2017-05-08] MEDS: D5NS 0.2% 1,000 ML IV SCH ×2 (05:20→23:29)
[2017-05-08 07:43] LABS: Hematocrit 22.4 % (35.5-45.6); Hemoglobin 7.9 gm/dl (11.8-15.2); Mean Corpuscular HGB Conc 35 % (32-34); Mean Corpuscular Hemoglobin 32 pg (28-32); Mean Corpuscular Volume 91 fl (84-94); Platelet Count 233 K/mm3 (140-440); Red Blood Count 2.46 M/mm3 (3.65-5.03); Red Cell Distribution Width 19.4 % (13.2-15.2); Reticulocyte % 14.58 % (0.78-2.58); White Blood Count 11.7 K/mm3 (4.5-11.0)
[2017-05-08 07:58] LABS: Anion Gap 16 mmol/L; BUN/Creatinine Ratio 27; Blood Urea Nitrogen 8 mg/dL (9-20); Calcium 8.9 mg/dL (8.4-10.2); Carbon Dioxide 26 mmol/L (22-30); Chloride 101.4 mmol/L (98-107); Glucose 97 mg/dL (75-100); Potassium 4.5 mmol/L (3.6-5.0); Sodium 139 mmol/L (137-145)
[2017-05-08 09:48] LABS: Anisocytosis 1+; Basophils % (Manual) 0 % (0.0-1.8); Blastocytes % (Manual) 0 %
[2017-05-08 09:49] LABS: Diff Status Complete; Elliptocytes 1+; Hypochromasia 1+; Sickle Cells 1+; Smudge Cells Few; Target Cells 1+
[2017-05-08] MEDS: Desferal 3,000 MG in NACL 0.9% 250ML 250 ML IV SCH (11:20)
[2017-05-08] MEDS: FOLVITE PO SCH (11:21)
[2017-05-08] MEDS: COREG PO SCH (11:21)
--- NOTE | 2017-05-08 16:06 | Progress Note ---
Assessment and Plan / Iron overload Due to multiple transfusion in the past and now getting Desferol transfusion /Sickle cell pain crisis cont IVF, Pain control, Hemotology following monitor h and H, hemoglobin noted to be 7.9 today /Symptomatic anemia PRBC transfusion as needed, cont supportive care, Status post unit of packed RBC transfusion on 05/03/2017 /DVT prophylaxis SCD Disposition: If H and H stable then likely d/c tomorrow Subjective Date of service: 05/08/17 Interval history: Pt seen and examined States that pain is better today, hb 7.9 today, but retic count ~ 14 getting Desferol transfusion day 4 Objective - Exam Narrative Exam: General appearance: Present: no acute distress, well-nourished - EENT Eyes: PERRL, EOM intact ENT: hearing intact, clear oral mucosa Ears: bilateral: normal - Neck Neck: supple, normal ROM - Respiratory Respiratory effort: normal Respiratory: bilateral: CTA - Cardiovascular Rhythm: regular Heart Sounds: Present: S1 & S2. Absent: gallop, rub Extremities: pulses intact, No edema, normal color, Full ROM - Gastrointestinal General gastrointestinal: Present: soft, non-tender, non-distended, normal bowel sounds - Integumentary Integumentary: clear, warm, dry - Musculoskeletal Musculoskeletal: 1, no joint swelling - Neurologic Neurologic: moves all extremities - Psychiatric Psychiatric: memory intact, appropriate mood/affect, intact judgment & insight - Constitutional Vitals: Vital Signs - 12hr 05/08/17 05/08/17 05/08/17 07:02 08:12 15:55 Temperature 98.8 F 98.5 F Pulse Rate 62 67 Respiratory 20 16 18 Rate Blood Pressure 113/50 115/43 O2 Sat by Pulse 97 97 Oximetry - Labs CBC & Chem 7: 05/08/17 06:30 05/08/17 06:30 Labs: Abnormal lab results 05/08/17 05/08/17 Range/Units 06:30 06:30 WBC 11.7 H (4.5-11.0) K/mm3 RBC 2.46 L (3.65-5.03) M/mm3 Hgb 7.9 L (11.8-15.2) gm/dl Hct 22.4 L (35.5-45.6) % MCHC 35 H (32-34) % RDW 19.4 H (13.2-15.2) % Monocytes % (Manual) 18.0 H (0.0-7.3) % Eosinophils % (Manual) 9.0 H (0.0-4.3) % Monocytes # (Manual) 2.1 H (0.0-0.8) K/mm3 Eosinophils # (Manual) 1.1 H (0.0-0.4) K/mm3 Percent Retic 14.58 H (0.78-2.58) % BUN 8 L (9-20) mg/dL Creatinine 0.3 L (0.8-1.5) mg/dL
--- NOTE | 2017-05-09 00:35 | Progress Note ---
Assessment and Plan - Patient Problems (1) Anemia Current Visit: No Status: Acute Qualifiers: Anemia type: A Iron deficiency anemia type: I Vitamin B12 deficiency anemia type: V Folate deficiency anemia type: F Bone marrow failure anemia type: B Hemolytic anemia type: H Other causes of anemia: O Chronic kidney disease stage: stage 2 (mild) Qualified Code(s): N18.2 - Chronic kidney disease, stage 2 (mild); D63.1 - Anemia in chronic kidney disease; D63.1 - Anemia in chronic kidney disease (2) Dehydration Current Visit: No Status: Acute Plan to address problem: hydration (3) Iron overload due to repeated red blood cell transfusions Current Visit: No Status: Acute Plan to address problem: will check levels in am, and address accordingly. Continue with Desferol he is on bag #2. once pain controlled, may be d/c. by you. (4) Sickle cell pain crisis Current Visit: Yes Status: Acute Plan to address problem: pain control. need better pain control. (5) Sickle cell anemia Current Visit: Yes Status: Acute Qualifiers: Sickle-cell associated disorders: S Plan to address problem: proceed with transfusion replacement. stable. Subjective Date of service: 05/08/17 Interval history: Patient seen/examined,resting in bed, C/o pain 02/08, retic count extremely higher today. Ferretin /iron high also due to chronic overload. will chelate . Patient seen, resting in bed, labs reviewed, retic count still elevated. Patient seen/examined, resting in bed, desferol infusing. C/O pain in the back , retic count now increased to above 20., justifying continual crisis. Patient seen/examined, resting in bed, labs reviewed, case was d/w the primary team earlier today. ,and with patient now.Retic count count still elevated. once pain subsided, may d/c home as per you. Patient seen/examined, resting in bed, Retic count better. Disposition as per you. Objective - Constitutional Vitals: Vital Signs - 12hr 05/08/17 05/08/17 05/08/17 15:55 21:25 21:55 Temperature 98.5 F Pulse Rate 67 Respiratory 18 20 20 Rate Blood Pressure 115/43 O2 Sat by Pulse 97 Oximetry General appearance: Present: mild distress, well-nourished - EENT Eyes: PERRL, EOM intact ENT: hearing intact, clear oral mucosa Ears: bilateral: normal - Neck Neck: supple, normal ROM - Respiratory Respiratory effort: normal Respiratory: bilateral: CTA - Breasts Breasts: deferred - Cardiovascular Rhythm: regular Heart Sounds: Present: S1 & S2. Absent: gallop, rub Extremities: pulses intact, No edema, normal color, Full ROM - Gastrointestinal General gastrointestinal: Present: soft, non-tender, non-distended, normal bowel sounds Rectal Exam: deferred - Genitourinary Male genitourinary: deferred - Integumentary Integumentary: clear, warm, dry - Musculoskeletal Musculoskeletal: 1, strength equal bilaterally - Neurologic Neurologic: moves all extremities - Psychiatric Psychiatric: memory intact, appropriate mood/affect, intact judgment & insight - Labs CBC & Chem 7: 05/08/17 06:30 05/08/17 06:30 Labs: Abnormal lab results 05/08/17 05/08/17 Range/Units 06:30 06:30 WBC 11.7 H (4.5-11.0) K/mm3 RBC 2.46 L (3.65-5.03) M/mm3 Hgb 7.9 L (11.8-15.2) gm/dl Hct 22.4 L (35.5-45.6) % MCHC 35 H (32-34) % RDW 19.4 H (13.2-15.2) % Monocytes % (Manual) 18.0 H (0.0-7.3) % Eosinophils % (Manual) 9.0 H (0.0-4.3) % Monocytes # (Manual) 2.1 H (0.0-0.8) K/mm3 Eosinophils # (Manual) 1.1 H (0.0-0.4) K/mm3 Percent Retic 14.58 H (0.78-2.58) % BUN 8 L (9-20) mg/dL Creatinine 0.3 L (0.8-1.5) mg/dL
[2017-05-09] MEDS: BENADRYL IV PRN ×4 (01:49→23:18)
[2017-05-09] MEDS: DILAUDID IV PRN ×6 (01:49→23:13)
[2017-05-09] MEDS: D5NS 0.2% 1,000 ML IV SCH (06:09)
[2017-05-09 07:06] LABS: Hemoglobin 7.2 gm/dl (11.8-15.2); Mean Corpuscular HGB Conc 34 % (32-34); Mean Corpuscular Hemoglobin 31 pg (28-32); Mean Corpuscular Volume 90 fl (84-94); Platelet Count 230 K/mm3 (140-440); Red Blood Count 2.33 M/mm3 (3.65-5.03); Red Cell Distribution Width 19.2 % (13.2-15.2); White Blood Count 12.5 K/mm3 (4.5-11.0)
[2017-05-09 07:07] LABS: Reticulocyte % 11.69 % (0.78-2.58)
[2017-05-09 07:19] LABS: Anion Gap 17 mmol/L; BUN/Creatinine Ratio 40; Blood Urea Nitrogen 12 mg/dL (9-20); Calcium 8.6 mg/dL (8.4-10.2); Carbon Dioxide 26 mmol/L (22-30); Chloride 102.3 mmol/L (98-107); Glucose 95 mg/dL (75-100); Potassium 4.8 mmol/L (3.6-5.0); Sodium 140 mmol/L (137-145)
[2017-05-09 08:04] LABS: Anisocytosis 1+; Basophils % (Manual) 0 % (0.0-1.8); Blastocytes % (Manual) 0 %; Elliptocytes 1+; Hypochromasia 1+; Poikilocytosis 1+; Target Cells 1+
[2017-05-09 08:05] LABS: Diff Status Complete; Helmet Cells Few; Sickle Cells Few; Stomatocytes 1+
[2017-05-09] MEDS: Desferal 3,000 MG in NACL 0.9% 250ML 250 ML IV SCH (10:22)
[2017-05-09] MEDS: FOLVITE PO SCH (10:23)
[2017-05-09] MEDS: COREG PO SCH (10:23)
--- NOTE | 2017-05-09 16:43 | Progress Note ---
Assessment and Plan / Iron overload Due to multiple transfusion in the past and now getting Desferol transfusion, complete /Sickle cell pain crisis cont IVF, Pain control, Hemotology following monitor h and H, hemoglobin noted to be 7.2 today will wait hematology recommendation /Symptomatic anemia PRBC transfusion as needed, cont supportive care, Status post unit of packed RBC transfusion on 05/03/2017 will hold transfusion till seen by hematology /DVT prophylaxis SCD Disposition: If H and H stable then likely d/c tomorrow after transfusion if needed Subjective Date of service: 05/09/17 Interval history: Pt seen and examined States that pain is again worse today, hb 7.2, but retic count ~ 11.69 getting Desferol transfusion day 5 Objective - Exam Narrative Exam: General appearance: Present: no acute distress, well-nourished - EENT Eyes: PERRL, EOM intact ENT: hearing intact, clear oral mucosa Ears: bilateral: normal - Neck Neck: supple, normal ROM - Respiratory Respiratory effort: normal Respiratory: bilateral: CTA - Cardiovascular Rhythm: regular Heart Sounds: Present: S1 & S2. Absent: gallop, rub Extremities: pulses intact, No edema, normal color, Full ROM - Gastrointestinal General gastrointestinal: Present: soft, non-tender, non-distended, normal bowel sounds - Integumentary Integumentary: clear, warm, dry - Musculoskeletal Musculoskeletal: 1, no joint swelling - Neurologic Neurologic: moves all extremities - Psychiatric Psychiatric: memory intact, appropriate mood/affect, intact judgment & insight - Constitutional Vitals: Vital Signs - 12hr 05/09/17 05/09/17 05/09/17 06:21 08:10 15:45 Temperature 98.6 F 98.8 F Pulse Rate 61 67 Respiratory 20 16 16 Rate Blood Pressure 124/75 108/52 O2 Sat by Pulse 97 96 Oximetry - Labs CBC & Chem 7: 05/10/17 06:10 05/09/17 06:30 Labs: Abnormal lab results 05/09/17 05/09/17 Range/Units 06:30 06:30 WBC 12.5 H (4.5-11.0) K/mm3 RBC 2.33 L (3.65-5.03) M/mm3 Hgb 7.2 L (11.8-15.2) gm/dl Hct 21.0 L (35.5-45.6) % RDW 19.2 H (13.2-15.2) % Monocytes % (Manual) 17.0 H (0.0-7.3) % Eosinophils % (Manual) 5.0 H (0.0-4.3) % Monocytes # (Manual) 2.1 H (0.0-0.8) K/mm3 Eosinophils # (Manual) 0.6 H (0.0-0.4) K/mm3 Percent Retic 11.69 H (0.78-2.58) % Creatinine 0.3 L (0.8-1.5) mg/dL
[2017-05-09] MEDS ORDERED: NACL 0.9% 500 ML 500 ML IV SCH (21:26)
--- NOTE | 2017-05-09 21:26 | Progress Note ---
Assessment and Plan - Patient Problems (1) Anemia Current Visit: No Status: Acute Qualifiers: Anemia type: A Iron deficiency anemia type: I Vitamin B12 deficiency anemia type: V Folate deficiency anemia type: F Bone marrow failure anemia type: B Hemolytic anemia type: H Other causes of anemia: O Chronic kidney disease stage: stage 2 (mild) Qualified Code(s): N18.2 - Chronic kidney disease, stage 2 (mild); D63.1 - Anemia in chronic kidney disease; D63.1 - Anemia in chronic kidney disease (2) Dehydration Current Visit: No Status: Acute Plan to address problem: hydration (3) Iron overload due to repeated red blood cell transfusions Current Visit: No Status: Acute Plan to address problem: will check levels in am, and address accordingly. Continue with Desferol he is on bag #2. once pain controlled, may be d/c. by you. (4) Sickle cell pain crisis Current Visit: Yes Status: Acute Plan to address problem: pain control. need better pain control. (5) Sickle cell anemia Current Visit: Yes Status: Acute Qualifiers: Sickle-cell associated disorders: S Plan to address problem: proceed with transfusion replacement. stable. Subjective Date of service: 05/09/17 Interval history: Patient seen/examined,resting in bed, C/o pain 02/08, retic count extremely higher today. Ferretin /iron high also due to chronic overload. will chelate . Patient seen, resting in bed, labs reviewed, retic count still elevated. Patient seen/examined, resting in bed, desferol infusing. C/O pain in the back , retic count now increased to above 20., justifying continual crisis. Patient seen/examined, resting in bed, labs reviewed, case was d/w the primary team earlier today. ,and with patient now.Retic count count still elevated. once pain subsided, may d/c home as per you. Patient seen/examined, resting in bed, Retic count better. Disposition as per you. Patient seen/examined, resting in bed, labs reviewed, H/H dropped, may need 1 unit of blood, after which he should be able to go home. Objective - Constitutional Vitals: Vital Signs - 12hr 05/09/17 15:45 Temperature 98.8 F Pulse Rate 67 Respiratory 16 Rate Blood Pressure 108/52 O2 Sat by Pulse 96 Oximetry General appearance: Present: mild distress, well-nourished - EENT Eyes: PERRL, EOM intact ENT: hearing intact, clear oral mucosa Ears: bilateral: normal - Neck Neck: supple, normal ROM - Respiratory Respiratory effort: normal Respiratory: bilateral: CTA - Cardiovascular Rhythm: regular Heart Sounds: Present: S1 & S2. Absent: gallop, rub Extremities: pulses intact, No edema, normal color, Full ROM - Gastrointestinal General gastrointestinal: Present: soft, non-tender, non-distended, normal bowel sounds Rectal Exam: deferred - Genitourinary Male genitourinary: deferred - Integumentary Integumentary: clear, warm, dry - Musculoskeletal Musculoskeletal: 1, strength equal bilaterally - Neurologic Neurologic: moves all extremities - Psychiatric Psychiatric: memory intact, appropriate mood/affect, intact judgment & insight - Labs CBC & Chem 7: 05/09/17 06:30 05/09/17 06:30 Labs: Abnormal lab results 05/09/17 05/09/17 Range/Units 06:30 06:30 WBC 12.5 H (4.5-11.0) K/mm3 RBC 2.33 L (3.65-5.03) M/mm3 Hgb 7.2 L (11.8-15.2) gm/dl Hct 21.0 L (35.5-45.6) % RDW 19.2 H (13.2-15.2) % Monocytes % (Manual) 17.0 H (0.0-7.3) % Eosinophils % (Manual) 5.0 H (0.0-4.3) % Monocytes # (Manual) 2.1 H (0.0-0.8) K/mm3 Eosinophils # (Manual) 0.6 H (0.0-0.4) K/mm3 Percent Retic 11.69 H (0.78-2.58) % Creatinine 0.3 L (0.8-1.5) mg/dL
[2017-05-10] MEDS: DILAUDID IV PRN ×3 (04:07→13:51)
[2017-05-10] MEDS: BENADRYL IV PRN ×3 (04:32→15:43)
[2017-05-10 06:30] LABS: Basophils % (Auto) 1.4 % (0.0-1.8); Eosinophils % (Auto) 7.9 % (0.0-4.3); Hematocrit 21.8 % (35.5-45.6); Hemoglobin 7.7 gm/dl (11.8-15.2); Mean Corpuscular HGB Conc 35 % (32-34); Mean Corpuscular Hemoglobin 32 pg (28-32); Mean Corpuscular Volume 89 fl (84-94); Platelet Count 250 K/mm3 (140-440); Red Blood Count 2.45 M/mm3 (3.65-5.03); Red Cell Distribution Width 18.7 % (13.2-15.2); Reticulocyte % 9.05 % (0.78-2.58); White Blood Count 12.1 K/mm3 (4.5-11.0)
[2017-05-10] MEDS: FOLVITE PO SCH (09:43)
[2017-05-10] MEDS: COREG PO SCH (09:43)
[2017-05-10] MEDS ORDERED: TRIPLE ANTIBIOTIC TP ONE (14:00)
[2017-05-10] MEDS ORDERED: FLUSH HEPARIN IV ONE (14:00)
--- NOTE | 2017-05-10 15:29 | Discharge Summary ---
Providers - Providers Date of Admission: 05/03/17 13:37 Date of discharge: 05/10/17 Attending physician: OSORIO MONTES 05/03/17 12:25 Consult to Physician [CONS] Routine Consulting Provider: DANIEL DE JESUS Reason For Exam: SICKLE CELL PAIN CRISIS, SYMPTOMATIC ANEMIA Place consult to:: DR. Juve DE JESUS Notified:: office Phone number called:: [phone] Was contact made?: Yes If yes, spoke with:: YES Time called:: 12:22 Primary care physician: DANIEL DE JESUS Hospitalization Hospital course: / Iron overload Due to multiple transfusion in the past and now s/p Desferol transfusion, complete /Sickle cell pain crisis cont IVF, Pain control, Hemotology following monitored h and H, transfused 3 units of PRBC /Symptomatic anemia PRBC transfusion as needed, cont supportive care, Status post 2 units of packed RBC transfusion on 05/03/2017 and one unit on 03/18 /DVT prophylaxis SCD Disposition: TO HOME OR SELFCARE Time spent for discharge: 32 minutes Core Measure Documentation - Palliative Care Palliative Care/ Comfort Measures: Not Applicable - Core Measures Any of the following diagnoses?: none Exam - Physical Exam Narrative exam: General appearance: Present: no acute distress, well-nourished - EENT Eyes: PERRL, EOM intact ENT: hearing intact, clear oral mucosa Ears: bilateral: normal - Neck Neck: supple, normal ROM - Respiratory Respiratory effort: normal Respiratory: bilateral: CTA - Cardiovascular Rhythm: regular Heart Sounds: Present: S1 & S2. Absent: gallop, rub Extremities: pulses intact, No edema, normal color, Full ROM - Gastrointestinal General gastrointestinal: Present: soft, non-tender, non-distended, normal bowel sounds - Integumentary Integumentary: clear, warm, dry - Musculoskeletal Musculoskeletal: 1, no joint swelling - Neurologic Neurologic: moves all extremities - Psychiatric Psychiatric: memory intact, appropriate mood/affect, intact judgment & insight - Constitutional Vitals: Temp Pulse Resp BP Pulse Ox 98.5 F 65 16 121/66 99 05/10/17 09:39 05/10/17 09:39 05/10/17 09:39 05/10/17 09:39 05/10/17 09:39 Plan Activity: advance as tolerated Weight Bearing Status: Weight Bear as Tolerated Diet: low fat, low salt Follow up with: DANIEL DE JESUS DO [Primary Care Provider] - 7 Days Prescriptions: oxyCODONE /ACETAMINOPHEN [Percocet 5/325 mg] 2 tab PO Q6H PRN #20 tablet PRN Reason: Pain, Moderate (4-6)
[2017-05-10 16:08] VITALS: BP 107/59
== END 2017-05-10 16:45 | disposition home or self-care (01) | DRG 812 ==
LOC: UNDOADMIN 12:13 → 3A 12:13
PROVIDERS: ADMIT Internal Medicine; ATTEND Internal Medicine
PROC: 30233N1 Transfusion of Nonautologous Red Blood Cells into Peripheral Vein, Percutaneous Approach (ICD-10-PCS; principal; 2017-05-03)
DX: D57.00 Hb-SS disease with crisis, unspecified (principal); E86.0 Dehydration; E83.111 Hemochromatosis due to repeated red blood cell transfusions; I10 Essential (primary) hypertension; Z90.49 Acquired absence of other specified parts of digestive tract; Z90.81 Acquired absence of spleen; Z79.899 Other long term (current) drug therapy
CPT/HCPCS: 36415; 80048; 80053; 82728; 83550; 83615; 85007; 85025; 85045; 85660; 86850; 86900; 86901; 86920; 87040; 87086; A6250; J0895; J1170; J1200; J1642; J2997; J7040; J7050; P9016

== ENCOUNTER 2017-06-30 03:54 | Inpatient (IN) | payer MEDICAID ==
[2017-06-30 05:10] LABS: Hemoglobin 7.1 gm/dl (11.8-15.2); Mean Corpuscular HGB Conc 37 % (32-34); Mean Corpuscular Hemoglobin 35 pg (28-32); Mean Corpuscular Volume 96 fl (84-94); Platelet Count 264 K/mm3 (140-440); Red Blood Count 2.03 M/mm3 (3.65-5.03); Reticulocyte % 9.73 % (0.78-2.58)
[2017-06-30 05:14] LABS: Red Cell Distribution Width 27.2 % (13.2-15.2)
[2017-06-30 05:15] LABS: Hematocrit 19.5 % (35.5-45.6)
[2017-06-30 05:21] LABS: BUN/Creatinine Ratio 47; Blood Urea Nitrogen 14 mg/dL (9-20); Carbon Dioxide 22 mmol/L (22-30); Glucose 91 mg/dL (75-100)
[2017-06-30 05:22] LABS: Anion Gap 20 mmol/L; Potassium 4.4 mmol/L (3.6-5.0); Sodium 142 mmol/L (137-145)
[2017-06-30 05:54] LABS: Basophils % (Manual) 0 % (0.0-1.8); Blastocytes % (Manual) 0 %
[2017-06-30 05:56] LABS: Sickle Cells 3+
[2017-06-30 05:57] LABS: Diff Status Complete; Platelet Estimate Consistent w Auto; Polychromasia Few; Stomatocytes Few
[2017-06-30 06:00] LABS: Bilirubin,Urine NEG (Negative); Blood,Urine MOD (Negative); Ketones,Urine NEG (Negative); Leukocyte Esterase,Urine NEG (Negative); Nitrite,Urine NEG (Negative); Urobilinogen,Urine < 2.0 mg/dL (<2.0); WBC,Urine < 1.0 /HPF (0.0-6.0)
[2017-06-30] MEDS ORDERED: ZOFRAN IV ONE (06:34)
[2017-06-30] MEDS ORDERED: DILAUDID IV ONE ×2 (06:34→07:51)
[2017-06-30] MEDS ORDERED: BENADRYL IV ONE (06:34)
--- NOTE | 2017-06-30 06:39 | Emergency Department Report ---
HPI - General Chief Complaint: Sickle Cell Crisis Time Seen by Provider: 06/30/17 06:28 - HPI HPI: Room 18 The patient is a 32-year-old male presenting with a chief complaint of sickle cell pain crisis. The patient states for the past 4 days she's had intermittent pain in his back and right lower extremity consistent with sickle cell. Patient also complains of pain in the left jaw causing a headache for the past 24 hours. The patient gets his pain a score of 10/10 Location: [See above] Duration: [See above] Quality: Sickle cell pain Severity: 10/10 Modifying factors: Unknown Context: [see above] Mode of transportation: Unknown ED Past Medical Hx - Past Medical History Previous Medical History?: Yes Hx Hypertension: Yes Hx Congestive Heart Failure: Yes (cardiomyopathy last EF approximate 40%) Hx Sickle Cell Disease: Yes - Surgical History Hx Cholecystectomy: Yes Additional Surgical History: spleen removed, hernia repair - Family History Family history: no significant - Social History Smoking Status: Never Smoker Substance Use Type: None (denies illicit drug use) - Medications Home Medications: Home Medications Medication Instructions Recorded Confirmed Last Taken Type Carvedilol [Coreg] 12.5 mg PO BID #60 tablet 02/28/17 05/04/17 Unknown Rx Folic Acid [Folvite] 1 mg PO QDAY #30 tablet 02/28/17 05/04/17 Unknown Rx oxyCODONE /ACETAMINOPHEN [Percocet 2 tab PO Q6H PRN #20 tablet 05/10/17 Unknown Rx 5/325 mg] ED Review of Systems ROS: Stated complaint: SICKLE CELL PAIN Other details as noted in HPI ENT: other (jaw pain) Musculoskeletal: back pain, myalgia Neurological: headache Hematological/Lymphatic: other (sickle cell pain crisis) Physical Exam - Physical Exam Vital Signs: Vital Signs 06/30/17 06/30/17 06/30/17 04:15 04:16 05:40 Temperature 98.4 F 98.4 F Pulse Rate 87 87 Respiratory 18 Rate Blood Pressure 136/69 136/69 142/74 O2 Sat by Pulse 92 99 Oximetry 06/30/17 06/30/17 06/30/17 06:00 06:06 06:07 Temperature 98.9 F Pulse Rate Respiratory 22 Rate Blood Pressure 142/74 O2 Sat by Pulse 97 Oximetry 06/30/17 06:19 Temperature Pulse Rate Respiratory Rate Blood Pressure 117/57 O2 Sat by Pulse 97 Oximetry Physical Exam: GENERAL: The patient is well-developed well-nourished male lying on fracture not appearing to be in acute distress. [] HEENT: Normocephalic. Atraumatic. Extraocular motions are intact. Patient has moist mucous membranes. Icteric sclera NECK: Supple. No meningitic signs are noted. Trachea midline CHEST/LUNGS: Clear to auscultation. There is no respiratory distress noted. HEART/CARDIOVASCULAR: Regular. There is no tachycardia. There is no gallop rub or murmur. ABDOMEN: Abdomen is soft, nontender. Patient has normal bowel sounds. There is no abdominal distention. SKIN: There is no rash. There is no edema. There is no diaphoresis. NEURO: The patient is awake, alert, and oriented. The patient is cooperative. The patient has no focal neurologic deficits. The patient has normal speech. Cranial nerves II through XII grossly intact, no drift MUSCULOSKELETAL: There is no evidence of acute injury. ED Course Vital Signs 06/30/17 06/30/17 06/30/17 04:15 04:16 05:40 Temperature 98.4 F 98.4 F Pulse Rate 87 87 Respiratory 18 Rate Blood Pressure 136/69 136/69 142/74 O2 Sat by Pulse 92 99 Oximetry 06/30/17 06/30/17 06/30/17 06:00 06:06 06:07 Temperature 98.9 F Pulse Rate Respiratory 22 Rate Blood Pressure 142/74 O2 Sat by Pulse 97 Oximetry 06/30/17 06:19 Temperature Pulse Rate Respiratory Rate Blood Pressure 117/57 O2 Sat by Pulse 97 Oximetry ED Medical Decision Making - Lab Data Result diagrams: 06/30/17 04:32 06/30/17 04:32 - Differential Diagnosis sickle cell pain crisis, sickle cell anemia Critical care attestation.: If time is entered above; I have spent that time in minutes in the direct care of this critically ill patient, excluding procedure time. ED Disposition Clinical Impression: Sickle cell anemia, Sickle cell pain crisis Disposition: OP ADMIT IP TO THIS HOSP Is pt being admited?: Yes Does the pt Need Aspirin: No Condition: Fair Referrals: PRIMARY CARE, [Primary Care Provider] - 3-5 Days Time of Disposition: 06:40 (hospitalist paged)
[2017-06-30] MEDS ORDERED: TYLENOL PO PRN (09:19)
[2017-06-30] MEDS ORDERED: MORPHINE IV PRN (09:19)
[2017-06-30] MEDS ORDERED: MILK OF MAGNESIA PO PRN (09:19)
[2017-06-30] MEDS ORDERED: ZOFRAN IV PRN (09:19)
[2017-06-30] MEDS ORDERED: DULCOLAX PR PRN (09:19)
--- NOTE | 2017-06-30 09:24 | History and Physical Report ---
History of Present Illness Date of examination: 06/30/17 Date of admission: 06/30/2017 Chief complaint: bilateral leg pain, back pain and headache History of present illness: Patient is a 32 years old male with past medical history of cardiomyopathy and sickle cell anemia who presents to the emergency department for bilateral bilateral lower extremity and back pain. The pain began Wednesday at approximately 4:00 am while the patient was walking to the bath room. The pain was described as aching and had a gradual onset. The patient had difficulty sleeping yesterday because of the pain. The pain continued to gradually increase in severity to an 10/10 today. The pain was exacerbated with walking or standing and was not significantly relieved with Percocet that the patient had by prescription. The knee pain is similar to prior episode of pain crisis. The patient reports some chills and mild SOB, but denies fever, N/V, cough, chest pain, abdominal pain or recent trauma to the legs. Past History Past Medical History: other (cardiomyopathy and sickle cell anemia) Past Surgical History: No surgical history Social history: denies: smoking, alcohol abuse Family history: hypertension Medications and Allergies Allergies Allergy/AdvReac Type Severity Reaction Status Date / Time ceftriaxone sodium Allergy Unknown Verified 10/25/15 10:46 [From Rocephin] meperidine HCl [From Demerol] Allergy Unknown Verified 10/25/15 10:46 Home Medications Medication Instructions Recorded Confirmed Last Taken Type Carvedilol [Coreg] 12.5 mg PO BID #60 tablet 02/28/17 06/30/17 Unknown Rx Folic Acid [Folvite] 1 mg PO QDAY #30 tablet 02/28/17 06/30/17 Unknown Rx oxyCODONE /ACETAMINOPHEN [Percocet 2 tab PO Q6H PRN #20 tablet 05/10/17 Unknown Rx 5/325 mg] Review of Systems Constitutional: no weight loss, no weight gain, no fever Ears, nose, mouth and throat: no nose pain, no nasal congestion, no nasal discharge Cardiovascular: no rapid/irregular heart beat, no edema, no shortness of breath Gastrointestinal: no constipation, no change in bowel habits, no hematemesis Genitourinary Male: no urinary frequency, no urinary hesitancy, no nocturia, no incontinence Rectal: no incontinence, no bleeding Musculoskeletal: low back pain, shooting leg pain, no shooting arm pain, no arm numbness/tingling, no leg numbness/tingling Integumentary: no sores, no wounds, no jaundice, no boils Neurological: no tingling, no seizures, no syncope, no tremors Psychiatric: no hypersomnia, no change in appetite, no change in libido, no suicidal ideation Endocrine: no polydipsia, no polyuria, no nocturia, no excessive sweating Hematologic/Lymphatic: no easy bruising, no easy bleeding Allergic/Immunologic: no urticaria, no allergic rhinitis Exam - Constitutional Vitals: Temp Pulse Resp BP Pulse Ox 98.9 F 78 16 126/78 95 06/30/17 06:07 06/30/17 08:05 06/30/17 08:05 06/30/17 08:05 06/30/17 08:05 General appearance: Present: no acute distress - EENT Eyes: Present: PERRL ENT: hearing intact - Neck Neck: Present: supple - Respiratory Respiratory effort: normal Respiratory: bilateral: CTA - Cardiovascular Rhythm: regular Heart Sounds: Present: S1 & S2 - Abdominal General gastrointestinal: Present: soft, non-tender Male genitourinary: Present: deferred - Rectal Rectal Exam: deferred - Musculoskeletal Musculoskeletal: strength equal bilaterally - Psychiatric Psychiatric: appropriate mood/affect - Neurologic Neurologic: moves all extremities - Allied Health Allied health notes reviewed: nursing Results - Labs CBC & Chem 7: 06/30/17 04:32 06/30/17 04:32 Labs: Laboratory Last Values WBC 18.0 K/mm3 (4.5-11.0) H 06/30/17 04:32 RBC 2.03 M/mm3 (3.65-5.03) L 06/30/17 04:32 Hgb 7.1 gm/dl (11.8-15.2) L 06/30/17 04:32 Hct 19.5 % (35.5-45.6) L* 06/30/17 04:32 MCV 96 fl (84-94) H 06/30/17 04:32 MCH 35 pg (28-32) H 06/30/17 04:32 MCHC 37 % (32-34) H 06/30/17 04:32 RDW 27.2 % (13.2-15.2) H 06/30/17 04:32 Plt Count 264 K/mm3 (140-440) 06/30/17 04:32 Add Manual Diff Complete 06/30/17 04:32 Total Counted 100 06/30/17 04:32 Seg Neuts % (Manual) 70.0 % (40.0-70.0) 06/30/17 04:32 Band Neutrophils % 0 % 06/30/17 04:32 Lymphocytes % (Manual) 19.0 % (13.4-35.0) 06/30/17 04:32 Reactive Lymphs % (Man) 0 % 06/30/17 04:32 Monocytes % (Manual) 7.0 % (0.0-7.3) 06/30/17 04:32 Eosinophils % (Manual) 3.0 % (0.0-4.3) 06/30/17 04:32 Basophils % (Manual) 0 % (0.0-1.8) 06/30/17 04:32 Metamyelocytes % 0 % 06/30/17 04:32 Myelocytes % 1.0 % 06/30/17 04:32 Promyelocytes % 0 % 06/30/17 04:32 Blast Cells % 0 % 06/30/17 04:32 Nucleated RBC % Not Reportable 06/30/17 04:32 Seg Neutrophils # Man 12.6 K/mm3 (1.8-7.7) H 06/30/17 04:32 Band Neutrophils # 0.0 K/mm3 06/30/17 04:32 Lymphocytes # (Manual) 3.4 K/mm3 (1.2-5.4) 06/30/17 04:32 Abs React Lymphs (Man) 0.0 K/mm3 06/30/17 04:32 Monocytes # (Manual) 1.3 K/mm3 (0.0-0.8) H 06/30/17 04:32 Eosinophils # (Manual) 0.5 K/mm3 (0.0-0.4) H 06/30/17 04:32 Basophils # (Manual) 0.0 K/mm3 (0.0-0.1) 06/30/17 04:32 Metamyelocytes # 0.0 K/mm3 06/30/17 04:32 Myelocytes # 0.2 K/mm3 06/30/17 04:32 Promyelocytes # 0.0 K/mm3 06/30/17 04:32 Blast Cells # 0.0 K/mm3 06/30/17 04:32 WBC Morphology Not Reportable 06/30/17 04:32 Hypersegmented Neuts Not Reportable 06/30/17 04:32 Hyposegmented Neuts Not Reportable 06/30/17 04:32 Hypogranular Neuts Not Reportable 06/30/17 04:32 Smudge Cells Not Reportable 06/30/17 04:32 Toxic Granulation Not Reportable 06/30/17 04:32 Toxic Vacuolation Not Reportable 06/30/17 04:32 Dohle Bodies Not Reportable 06/30/17 04:32 Pelger-Huet Anomaly Not Reportable 06/30/17 04:32 Christian Rods Not Reportable 06/30/17 04:32 Platelet Estimate Consistent w auto 06/30/17 04:32 Clumped Platelets Not Reportable 06/30/17 04:32 Plt Clumps, EDTA Not Reportable 06/30/17 04:32 Large Platelets Not Reportable 06/30/17 04:32 Giant Platelets Not Reportable 06/30/17 04:32 Platelet Satelliting Not Reportable 06/30/17 04:32 Plt Morphology Comment Not Reportable 06/30/17 04:32 RBC Morphology Not Reportable 06/30/17 04:32 Dimorphic RBCs Not Reportable 06/30/17 04:32 Polychromasia Few 06/30/17 04:32 Hypochromasia Not Reportable 06/30/17 04:32 Poikilocytosis Not Reportable 06/30/17 04:32 Anisocytosis Not Reportable 06/30/17 04:32 Microcytosis Not Reportable 06/30/17 04:32 Macrocytosis Not Reportable 06/30/17 04:32 Spherocytes Not Reportable 06/30/17 04:32 Pappenheimer Bodies Not Reportable 06/30/17 04:32 Sickle Cells 3+ 06/30/17 04:32 Target Cells Not Reportable 06/30/17 04:32 Tear Drop Cells Not Reportable 06/30/17 04:32 Ovalocytes Not Reportable 06/30/17 04:32 Stomatocytes Few 06/30/17 04:32 Helmet Cells Not Reportable 06/30/17 04:32 [place] Bodies Not Reportable 06/30/17 04:32 [place] Rings Not Reportable 06/30/17 04:32 Nolberto Cells Not Reportable 06/30/17 04:32 Bite Cells Not Reportable 06/30/17 04:32 Crenated Cell Not Reportable 06/30/17 04:32 Elliptocytes Not Reportable 06/30/17 04:32 Acanthocytes (Spur) Not Reportable 06/30/17 04:32 Rouleaux Not Reportable 06/30/17 04:32 Hemoglobin C Crystals Not Reportable 06/30/17 04:32 Schistocytes Not Reportable 06/30/17 04:32 Malaria parasites Not Reportable 06/30/17 04:32 Percent Retic 9.73 % (0.78-2.58) H 06/30/17 04:32 You Bodies Not Reportable 06/30/17 04:32 Hem Pathologist Commnt No 06/30/17 04:32 Sodium 142 mmol/L (137-145) 06/30/17 04:32 Potassium 4.4 mmol/L (3.6-5.0) 06/30/17 04:32 Chloride 104.0 mmol/L (98-107) 06/30/17 04:32 Carbon Dioxide 22 mmol/L (22-30) 06/30/17 04:32 Anion Gap 20 mmol/L 06/30/17 04:32 BUN 14 mg/dL (9-20) 06/30/17 04:32 Creatinine 0.3 mg/dL (0.8-1.5) L 06/30/17 04:32 Estimated GFR > 60 ml/min 06/30/17 04:32 BUN/Creatinine Ratio 47 % 06/30/17 04:32 Glucose 91 mg/dL (75-100) 06/30/17 04:32 Calcium 9.0 mg/dL (8.4-10.2) 06/30/17 04:32 Urine Color Yellow (Yellow) 06/30/17 05:39 Urine Turbidity Clear (Clear) 06/30/17 05:39 Urine pH 5.0 (5.0-7.0) 06/30/17 05:39 Ur Specific [place] 1.010 (1.003-1.030) 06/30/17 05:39 Urine Protein 100 mg/dl mg/dL (Negative) 06/30/17 05:39 Urine Glucose (UA) Neg mg/dL (Negative) 06/30/17 05:39 Urine Ketones Neg mg/dL (Negative) 06/30/17 05:39 Urine Blood Mod (Negative) 06/30/17 05:39 Urine Nitrite Neg (Negative) 06/30/17 05:39 Urine Bilirubin Neg (Negative) 06/30/17 05:39 Urine Urobilinogen < 2.0 mg/dL (<2.0) 06/30/17 05:39 Ur Leukocyte Esterase Neg (Negative) 06/30/17 05:39 Urine WBC (Auto) < 1.0 /HPF (0.0-6.0) 06/30/17 05:39 Urine RBC (Auto) 1.0 /HPF (0.0-6.0) 06/30/17 05:39 Assessment and Plan Assessment and plan: Patient is a 32 years old male with past medical history of cardiomyopathy and sickle cell anemia who presents to the emergency department for bilateral bilateral lower extremity and back pain. Sickle cell anemia with vaso-occlusive crisis we will admit to Med-surg He was found to have a hemoglobin of 7.1on admission Started on gently IV fluid hydration due to patient has cardiomyopathy with ef of 40% Transfused 2 units of packed red blood cells Pain controlled with Dilaudid Closely monitor H&H Hematology consult Supportive care Dehydration IV fluid hydration Cardiomyopathy EF of 40 % Continue current therapy DVT prophylaxis Lovenox Advance Directives: Yes VTE prophylaxis?: Chemical Contraindication Mechanical VTE Prophylaxis: Treatment Not Indicated Plan of care discussed with patient/family: Yes
[2017-06-30] MEDS ORDERED: LASIX IV ONE ×2 (09:25→18:00)
[2017-06-30] MEDS: LOVENOX SUB-Q SCH (10:15)
[2017-06-30] MEDS: FOLVITE PO SCH (10:15)
[2017-06-30] MEDS ORDERED: DILAUDID ONE (10:43)
[2017-06-30] MEDS: DILAUDID IV PRN ×3 (10:45→20:54)
--- NOTE | 2017-06-30 11:49 | XRay Report ---
PORTABLE CHEST INDICATION: Sickle cell. COMPARISON: 11/18/2016 FINDINGS: Portable, frontal chest radiograph again demonstrates mild cardiomegaly and right-sided chest port tip about the mid right atrium. Grossly normal emerald. Clear lungs. Intact bones. CONCLUSION: Stable cardiomegaly and right chest port, as described. Thank you for the opportunity to participate in this patient's care.
[2017-06-30] MEDS ORDERED: NACL 0.9% 500 ML 500 ML IV ONE (12:00)
[2017-06-30] MEDS: COREG PO SCH ×2 (13:25→22:34)
[2017-06-30] MEDS: BENADRYL IV PRN ×2 (14:29→20:55)
[2017-06-30] MEDS: NACL 0.9% 1000 ML 1,000 ML IV SCH (17:39)
--- NOTE | 2017-06-30 21:20 | Consultation ---
History of Present Illness - Reason for Consult Consult date: 06/30/17 SDC/Sickle pain. Requesting physician: ANTON RODRIGUEZ - History of Present Illness Thank you for this consult, patient seen/examined, record reviewed, case d/w patient. patient states, c/o have had intractable SMITH for 24-36hrs non stop.He presented to the ED, and [place] [id number]., will check cultures., also will check his iron, due to hx of chronic iron overload. Past History Past Medical History: anemia, other (cardiomyopathy and sickle cell anemia) Past Surgical History: No surgical history Social history: single. denies: smoking, alcohol abuse Family history: no significant family history, hypertension Medications and Allergies Allergies Allergy/AdvReac Type Severity Reaction Status Date / Time ceftriaxone sodium Allergy Unknown Verified 10/25/15 10:46 [From Rocephin] meperidine HCl [From Demerol] Allergy Unknown Verified 10/25/15 10:46 Home Medications Medication Instructions Recorded Confirmed Last Taken Type Carvedilol [Coreg] 12.5 mg PO BID #60 tablet 02/28/17 06/30/17 Unknown Rx Folic Acid [Folvite] 1 mg PO QDAY #30 tablet 02/28/17 06/30/17 Unknown Rx oxyCODONE /ACETAMINOPHEN [Percocet 2 tab PO Q6H PRN #20 tablet 05/10/17 Unknown Rx 5/325 mg] Active Meds: Active Medications Acetaminophen (Tylenol) 650 mg PO Q4H PRN PRN Reason: Pain MILD(1-3)/Fever >100.5/SMITH Bisacodyl (Dulcolax) 10 mg SD QDAY PRN PRN Reason: Constipation unrelieved by MOM Carvedilol (Coreg) 12.5 mg PO BID [facility] Last Admin: 06/30/17 13:25 Dose: Not Given Diphenhydramine HCl (Benadryl) 25 mg IV Q6H PRN PRN Reason: Itching Last Admin: 06/30/17 20:55 Dose: 25 mg Enoxaparin Sodium (Lovenox) 40 mg SUB-Q QDAY [facility] Last Admin: 06/30/17 10:15 Dose: 40 mg Folic Acid (Folvite) 1 mg PO QDAY [facility] Last Admin: 06/30/17 10:15 Dose: 1 mg Hydromorphone HCl (Dilaudid) 2 mg IV Q4HR PRN PRN Reason: Pain , Severe (7-10) Last Admin: 06/30/17 20:54 Dose: 2 mg Sodium Chloride (Nacl 0.9% 1000 Ml) 1,000 mls @ 75 mls/hr IV DIRECT [facility] Last Admin: 06/30/17 17:39 Dose: 75 mls/hr Magnesium Hydroxide (Milk Of Magnesia) 30 ml PO Q4H PRN PRN Reason: Constipation Ondansetron HCl (Zofran) 4 mg IV Q8H PRN PRN Reason: N/V unrelieved by Reglan Review of Systems Constitutional: chronic pain Musculoskeletal: low back pain, shooting leg pain Neurological: headaches Exam - Constitutional Vitals: Temp Pulse Resp BP Pulse Ox 98.7 F 61 18 122/71 92 06/30/17 17:07 06/30/17 17:07 06/30/17 17:07 06/30/17 17:07 06/30/17 17:07 General appearance: Present: mild distress, well-nourished - EENT Eyes: Present: PERRL ENT: hearing intact, clear oral mucosa - Neck Neck: Present: supple, normal ROM - Respiratory Respiratory effort: normal Respiratory: bilateral: CTA - Cardiovascular Heart Sounds: Present: S1 & S2. Absent: rub, click - Extremities Extremities: pulses symmetrical, No edema Peripheral Pulses: within normal limits - Abdominal General gastrointestinal: Present: soft, non-tender, non-distended, normal bowel sounds Male genitourinary: Present: deferred - Rectal Rectal Exam: deferred - Integumentary Integumentary: Present: clear, warm, dry - Musculoskeletal Musculoskeletal: gait normal, strength equal bilaterally - Psychiatric Psychiatric: appropriate mood/affect, intact judgment & insight - Neurologic Neurologic: CNII-XII intact, moves all extremities Results - Labs CBC & Chem 7: 06/30/17 04:32 06/30/17 04:32 Labs: Abnormal lab results 06/30/17 06/30/17 06/30/17 Range/Units 04:32 04:32 11:11 WBC 18.0 H (4.5-11.0) K/mm3 RBC 2.03 L (3.65-5.03) M/mm3 Hgb 7.1 L (11.8-15.2) gm/dl Hct 19.5 L* (35.5-45.6) % MCV 96 H (84-94) fl MCH 35 H (28-32) pg MCHC 37 H (32-34) % RDW 27.2 H (13.2-15.2) % Seg Neutrophils # Man 12.6 H (1.8-7.7) K/mm3 Monocytes # (Manual) 1.3 H (0.0-0.8) K/mm3 Eosinophils # (Manual) 0.5 H (0.0-0.4) K/mm3 Percent Retic 9.73 H (0.78-2.58) % Creatinine 0.3 L (0.8-1.5) mg/dL Crossmatch See Detail Assessment and Plan - Patient Problems (1) Sickle cell anemia Current Visit: Yes Status: Acute Plan to address problem: labs, monitoring. (2) Sickle cell pain crisis Current Visit: Yes Status: Acute Plan to address problem: Pain control. (3) Acute intractable headache Current Visit: Yes Status: Acute Plan to address problem: May check ct of the brain.
--- NOTE | 2017-06-30 22:33 | Cat Scan Report ---
FINAL REPORT PROCEDURE: CT HEAD/BRAIN WO CON TECHNIQUE: Computerized tomography of the head was performed without contrast material. HISTORY: intractable head ache. COMPARISON: No prior studies are available for comparison. FINDINGS: Brain: Brain density appears normal. No evidence of intracranial hemorrhage. No parenchymal hemorrhage, mass lesions or mass effect are seen. No abnormal extraxial fluid collects or masses are seen. Ventricles: Ventricles are normal size and are midline. Bone Windows: No evidence of skull fracture. Paranasal sinuses: Visualized portions appear clear. Mastoid air cells: Clear IMPRESSION: Negative exam.
[2017-07-01] MEDS: DILAUDID IV PRN ×5 (02:55→23:49)
[2017-07-01] MEDS: BENADRYL IV PRN ×4 (02:56→23:50)
[2017-07-01 06:42] LABS: Basophils % (Auto) 1.4 % (0.0-1.8); Eosinophils % (Auto) 5.7 % (0.0-4.3); Hematocrit 24.6 % (35.5-45.6); Hemoglobin 8.8 gm/dl (11.8-15.2); Mean Corpuscular HGB Conc 36 % (32-34); Mean Corpuscular Hemoglobin 33 pg (28-32); Mean Corpuscular Volume 92 fl (84-94); Red Blood Count 2.67 M/mm3 (3.65-5.03); White Blood Count 13.1 K/mm3 (4.5-11.0)
[2017-07-01 06:50] LABS: Platelet Count 236 K/mm3 (140-440)
[2017-07-01 07:00] LABS: Iron 177 ug/dL (49-181)
[2017-07-01] MEDS: NACL 0.9% 1000 ML 1,000 ML IV SCH ×2 (07:45→17:59)
[2017-07-01 10:07] LABS: Total Iron Binding Capacity 168 mcg/dL (250-450)
[2017-07-01] MEDS: FOLVITE PO SCH (10:38)
[2017-07-01] MEDS: COREG PO SCH ×2 (10:38→23:49)
[2017-07-01] MEDS: LOVENOX SUB-Q SCH (10:38)
--- NOTE | 2017-07-01 14:08 | Progress Note ---
Assessment and Plan Assessment and plan: Sickle cell pain crisis Sickle cell anemia - Patient was transfused 2 units of blood - H&H is stable - Hematology consult appreciated - Pain control DVT prophylaxis - Lovenox Disposition - Possible discharge tomorrow History Interval history: Cassia was seen and evaluated this morning, he still complains pain in the neck and legs but getting better from admission condition. Hospitalist Physical - Physical exam Narrative exam: Not in cardiopulmonary distress. The patient appeared well nourished and normally developed. Vital signs as documented. Head exam is unremarkable. No scleral icterus . Neck is without jugular venous distension, thyromegaly, or carotid bruits. Lungs are clear to auscultation. Cardiac exam reveals regular rate and Rhythm. First and second heart sounds normal. No murmurs, rubs or gallops. Abdominal exam reveals normal bowel sounds, no masses, no organomegaly and no aortic enlargement. Extremities are nonedematous and both femoral and pedal pulses are normal. SURVEILLANCE SYSTEM MONITOR: Alert and oriented 3. No focal weakness. - Constitutional Vitals: Temp Pulse Resp BP Pulse Ox 98.6 F 59 L 18 129/79 93 07/01/17 08:03 07/01/17 10:38 07/01/17 08:03 07/01/17 10:38 07/01/17 08:03 General appearance: Present: mild distress, well-nourished Results - Labs CBC & Chem 7: 07/01/17 05:58 06/30/17 04:32 Labs: Laboratory Last Values WBC 13.1 K/mm3 (4.5-11.0) H 07/01/17 05:58 RBC 2.67 M/mm3 (3.65-5.03) L 07/01/17 05:58 Hgb 8.8 gm/dl (11.8-15.2) L 07/01/17 05:58 Hct 24.6 % (35.5-45.6) L 07/01/17 05:58 MCV 92 fl (84-94) 07/01/17 05:58 MCH 33 pg (28-32) H 07/01/17 05:58 MCHC 36 % (32-34) H 07/01/17 05:58 RDW 22.0 % (13.2-15.2) H 07/01/17 05:58 Plt Count 236 K/mm3 (140-440) 07/01/17 05:58 Lymph % (Auto) 28.1 % (13.4-35.0) 07/01/17 05:58 [place] % (Auto) 15.7 % (0.0-7.3) H 07/01/17 05:58 Eos % (Auto) 5.7 % (0.0-4.3) H 07/01/17 05:58 Baso % (Auto) 1.4 % (0.0-1.8) 07/01/17 05:58 Lymph # 3.7 K/mm3 (1.2-5.4) 07/01/17 05:58 [place] # 2.1 K/mm3 (0.0-0.8) H 07/01/17 05:58 Eos # 0.7 K/mm3 (0.0-0.4) H 07/01/17 05:58 Baso # 0.2 K/mm3 (0.0-0.1) H 07/01/17 05:58 Add Manual Diff Complete 06/30/17 04:32 Total Counted 100 06/30/17 04:32 Seg Neutrophils % 49.1 % (40.0-70.0) 07/01/17 05:58 Seg Neuts % (Manual) 70.0 % (40.0-70.0) 06/30/17 04:32 Band Neutrophils % 0 % 06/30/17 04:32 Lymphocytes % (Manual) 19.0 % (13.4-35.0) 06/30/17 04:32 Reactive Lymphs % (Man) 0 % 06/30/17 04:32 Monocytes % (Manual) 7.0 % (0.0-7.3) 06/30/17 04:32 Eosinophils % (Manual) 3.0 % (0.0-4.3) 06/30/17 04:32 Basophils % (Manual) 0 % (0.0-1.8) 06/30/17 04:32 Metamyelocytes % 0 % 06/30/17 04:32 Myelocytes % 1.0 % 06/30/17 04:32 Promyelocytes % 0 % 06/30/17 04:32 Blast Cells % 0 % 06/30/17 04:32 Nucleated RBC % Not Reportable 06/30/17 04:32 Seg Neutrophils # 6.4 K/mm3 (1.8-7.7) 07/01/17 05:58 Seg Neutrophils # Man 12.6 K/mm3 (1.8-7.7) H 06/30/17 04:32 Band Neutrophils # 0.0 K/mm3 06/30/17 04:32 Lymphocytes # (Manual) 3.4 K/mm3 (1.2-5.4) 06/30/17 04:32 Abs React Lymphs (Man) 0.0 K/mm3 06/30/17 04:32 Monocytes # (Manual) 1.3 K/mm3 (0.0-0.8) H 06/30/17 04:32 Eosinophils # (Manual) 0.5 K/mm3 (0.0-0.4) H 06/30/17 04:32 Basophils # (Manual) 0.0 K/mm3 (0.0-0.1) 06/30/17 04:32 Metamyelocytes # 0.0 K/mm3 06/30/17 04:32 Myelocytes # 0.2 K/mm3 06/30/17 04:32 Promyelocytes # 0.0 K/mm3 06/30/17 04:32 Blast Cells # 0.0 K/mm3 06/30/17 04:32 WBC Morphology Not Reportable 06/30/17 04:32 Hypersegmented Neuts Not Reportable 06/30/17 04:32 Hyposegmented Neuts Not Reportable 06/30/17 04:32 Hypogranular Neuts Not Reportable 06/30/17 04:32 Smudge Cells Not Reportable 06/30/17 04:32 Toxic Granulation Not Reportable 06/30/17 04:32 Toxic Vacuolation Not Reportable 06/30/17 04:32 Dohle Bodies Not Reportable 06/30/17 04:32 Pelger-Huet Anomaly Not Reportable 06/30/17 04:32 Christian Rods Not Reportable 06/30/17 04:32 Platelet Estimate Consistent w auto 06/30/17 04:32 Clumped Platelets Not Reportable 06/30/17 04:32 Plt Clumps, EDTA Not Reportable 06/30/17 04:32 Large Platelets Not Reportable 06/30/17 04:32 Giant Platelets Not Reportable 06/30/17 04:32 Platelet Satelliting Not Reportable 06/30/17 04:32 Plt Morphology Comment Not Reportable 06/30/17 04:32 RBC Morphology Not Reportable 06/30/17 04:32 Dimorphic RBCs Not Reportable 06/30/17 04:32 Polychromasia Few 06/30/17 04:32 Hypochromasia Not Reportable 06/30/17 04:32 Poikilocytosis Not Reportable 06/30/17 04:32 Anisocytosis Not Reportable 06/30/17 04:32 Microcytosis Not Reportable 06/30/17 04:32 Macrocytosis Not Reportable 06/30/17 04:32 Spherocytes Not Reportable 06/30/17 04:32 Pappenheimer Bodies Not Reportable 06/30/17 04:32 Sickle Cells 3+ 06/30/17 04:32 Target Cells Not Reportable 06/30/17 04:32 Tear Drop Cells Not Reportable 06/30/17 04:32 Ovalocytes Not Reportable 06/30/17 04:32 Stomatocytes Few 06/30/17 04:32 Helmet Cells Not Reportable 06/30/17 04:32 [place] Bodies Not Reportable 06/30/17 04:32 [place] Rings Not Reportable 06/30/17 04:32 [place] Cells Not Reportable 06/30/17 04:32 Bite Cells Not Reportable 06/30/17 04:32 Crenated Cell Not Reportable 06/30/17 04:32 Elliptocytes Not Reportable 06/30/17 04:32 Acanthocytes (Spur) Not Reportable 06/30/17 04:32 Rouleaux Not Reportable 06/30/17 04:32 Hemoglobin C Crystals Not Reportable 06/30/17 04:32 Schistocytes Not Reportable 06/30/17 04:32 Malaria parasites Not Reportable 06/30/17 04:32 Percent Retic 9.73 % (0.78-2.58) H 06/30/17 04:32 You Bodies Not Reportable 06/30/17 04:32 Hem Pathologist Commnt No 06/30/17 04:32 Sodium 142 mmol/L (137-145) 06/30/17 04:32 Potassium 4.4 mmol/L (3.6-5.0) 06/30/17 04:32 Chloride 104.0 mmol/L (98-107) 06/30/17 04:32 Carbon Dioxide 22 mmol/L (22-30) 06/30/17 04:32 Anion Gap 20 mmol/L 06/30/17 04:32 BUN 14 mg/dL (9-20) 06/30/17 04:32 Creatinine 0.3 mg/dL (0.8-1.5) L 06/30/17 04:32 Estimated GFR > 60 ml/min 06/30/17 04:32 BUN/Creatinine Ratio 47 % 06/30/17 04:32 Glucose 91 mg/dL (75-100) 06/30/17 04:32 Calcium 9.0 mg/dL (8.4-10.2) 06/30/17 04:32 Iron 177 ug/dL (49-181) 07/01/17 05:58 TIBC 168 mcg/dL (250-450) L 07/01/17 05:58 Ferritin > 2000.0 ng/mL (13.0-400.0) H 07/01/17 05:58 Urine Color Yellow (Yellow) 06/30/17 05:39 Urine Turbidity Clear (Clear) 06/30/17 05:39 Urine pH 5.0 (5.0-7.0) 06/30/17 05:39 Ur Specific [place] 1.010 (1.003-1.030) 06/30/17 05:39 Urine Protein 100 mg/dl mg/dL (Negative) 06/30/17 05:39 Urine Glucose (UA) Neg mg/dL (Negative) 06/30/17 05:39 Urine Ketones Neg mg/dL (Negative) 06/30/17 05:39 Urine Blood Mod (Negative) 06/30/17 05:39 Urine Nitrite Neg (Negative) 06/30/17 05:39 Urine Bilirubin Neg (Negative) 06/30/17 05:39 Urine Urobilinogen < 2.0 mg/dL (<2.0) 06/30/17 05:39 Ur Leukocyte Esterase Neg (Negative) 06/30/17 05:39 Urine WBC (Auto) < 1.0 /HPF (0.0-6.0) 06/30/17 05:39 Urine RBC (Auto) 1.0 /HPF (0.0-6.0) 06/30/17 05:39 Blood Type O POSITIVE 06/30/17 11:11 Antibody Screen Negative 06/30/17 11:11 Crossmatch See Detail 06/30/17 11:11
--- NOTE | 2017-07-01 16:25 | Progress Note ---
Assessment and Plan - Patient Problems (1) Sickle cell anemia Current Visit: Yes Status: Acute Plan to address problem: labs, monitoring. (2) Sickle cell pain crisis Current Visit: Yes Status: Acute Plan to address problem: Pain control. (3) Acute intractable headache Current Visit: Yes Status: Acute Plan to address problem: May check ct of the brain. Subjective Date of service: 07/01/17 Interval history: Patient seen/examined, resting in bed, labs/notes reviewed, case d/w patient. Objective - Constitutional Vitals: Vital Signs - 12hr 07/01/17 07/01/17 07/01/17 08:03 10:38 15:04 Temperature 98.6 F 98.6 F Pulse Rate 59 L 59 L 65 Respiratory 18 16 Rate Blood Pressure 129/79 129/79 121/66 O2 Sat by Pulse 93 93 Oximetry General appearance: Present: mild distress, well-nourished - EENT Eyes: PERRL, EOM intact ENT: hearing intact, clear oral mucosa Ears: bilateral: normal - Neck Neck: supple, normal ROM - Respiratory Respiratory effort: normal Respiratory: bilateral: CTA - Cardiovascular Rhythm: regular Heart Sounds: Present: S1 & S2. Absent: gallop, rub Extremities: pulses intact, No edema, normal color, Full ROM - Gastrointestinal General gastrointestinal: Present: soft, non-tender, non-distended, normal bowel sounds Rectal Exam: deferred - Genitourinary Male genitourinary: deferred - Integumentary Integumentary: clear, warm, dry - Musculoskeletal Musculoskeletal: 1, strength equal bilaterally - Neurologic Neurologic: moves all extremities - Psychiatric Psychiatric: memory intact, appropriate mood/affect, intact judgment & insight - Labs CBC & Chem 7: 07/01/17 05:58 06/30/17 04:32 Labs: Abnormal lab results 06/30/17 07/01/17 07/01/17 Range/Units 11:11 05:58 05:58 WBC 13.1 H (4.5-11.0) K/mm3 RBC 2.67 L (3.65-5.03) M/mm3 Hgb 8.8 L (11.8-15.2) gm/dl Hct 24.6 L (35.5-45.6) % MCH 33 H (28-32) pg MCHC 36 H (32-34) % RDW 22.0 H (13.2-15.2) % [place] % (Auto) 15.7 H (0.0-7.3) % Eos % (Auto) 5.7 H (0.0-4.3) % [place] # 2.1 H (0.0-0.8) K/mm3 Eos # 0.7 H (0.0-0.4) K/mm3 Baso # 0.2 H (0.0-0.1) K/mm3 TIBC 168 L (250-450) mcg/dL Ferritin (13.0-400.0) ng/mL Crossmatch See Detail 07/01/17 Range/Units 05:58 WBC (4.5-11.0) K/mm3 RBC (3.65-5.03) M/mm3 Hgb (11.8-15.2) gm/dl Hct (35.5-45.6) % MCH (28-32) pg MCHC (32-34) % RDW (13.2-15.2) % [place] % (Auto) (0.0-7.3) % Eos % (Auto) (0.0-4.3) % [place] # (0.0-0.8) K/mm3 Eos # (0.0-0.4) K/mm3 Baso # (0.0-0.1) K/mm3 TIBC (250-450) mcg/dL Ferritin > 2000.0 H (13.0-400.0) ng/mL Crossmatch
[2017-07-01 16:59] LABS: Anion Gap 18 mmol/L; BUN/Creatinine Ratio 47; Blood Urea Nitrogen 14 mg/dL (9-20); Calcium 8.7 mg/dL (8.4-10.2); Carbon Dioxide 23 mmol/L (22-30); Chloride 96.8 mmol/L (98-107); Glucose 85 mg/dL (75-100); Potassium 4.5 mmol/L (3.6-5.0); Sodium 133 mmol/L (137-145)
[2017-07-02] MEDS: NACL 0.9% 1000 ML 1,000 ML IV SCH ×2 (03:59→14:30)
[2017-07-02] MEDS: DILAUDID IV PRN ×4 (05:31→21:22)
[2017-07-02 06:04] LABS: Basophils % (Auto) 0.7 % (0.0-1.8); Eosinophils % (Auto) 7.1 % (0.0-4.3); Hematocrit 25.2 % (35.5-45.6); Hemoglobin 8.9 gm/dl (11.8-15.2); Mean Corpuscular HGB Conc 35 % (32-34); Mean Corpuscular Hemoglobin 33 pg (28-32); Mean Corpuscular Volume 94 fl (84-94); Red Blood Count 2.68 M/mm3 (3.65-5.03)
[2017-07-02 06:11] LABS: Platelet Count 251 K/mm3 (140-440)
[2017-07-02] MEDS: BENADRYL IV PRN ×3 (10:07→21:24)
[2017-07-02] MEDS: COREG PO SCH ×2 (10:16→21:25)
[2017-07-02] MEDS: FOLVITE PO SCH (10:17)
[2017-07-02] MEDS: LOVENOX SUB-Q SCH (10:17)
--- NOTE | 2017-07-02 13:38 | Progress Note ---
Assessment and Plan Assessment and plan: Sickle cell pain crisis Sickle cell anemia - Patient was transfused 2 units of blood - H&H is stable - Hematology consult appreciated - Pain control DVT prophylaxis - Lovenox Disposition - Possible discharge tomorrow History Interval history: Cassia was seen and evaluated this morning, he still complains pain in the neck and legs but getting better from admission condition. Hospitalist Physical - Physical exam Narrative exam: Not in cardiopulmonary distress. The patient appeared well nourished and normally developed. Vital signs as documented. Head exam is unremarkable. No scleral icterus . Neck is without jugular venous distension, thyromegaly, or carotid bruits. Lungs are clear to auscultation. Cardiac exam reveals regular rate and Rhythm. First and second heart sounds normal. No murmurs, rubs or gallops. Abdominal exam reveals normal bowel sounds, no masses, no organomegaly and no aortic enlargement. Extremities are nonedematous and both femoral and pedal pulses are normal. BROKER IN CHARGE: Alert and oriented 3. No focal weakness. - Constitutional Vitals: Temp Pulse Resp BP Pulse Ox 98.3 F 59 L 18 130/69 94 07/02/17 09:03 07/02/17 10:16 07/02/17 09:03 07/02/17 10:16 07/02/17 09:03 General appearance: Present: mild distress, well-nourished Results - Labs CBC & Chem 7: 07/02/17 Unknown 07/01/17 05:58 Labs: Laboratory Last Values WBC 12.0 K/mm3 (4.5-11.0) H 07/02/17 Unknown RBC 2.68 M/mm3 (3.65-5.03) L 07/02/17 Unknown Hgb 8.9 gm/dl (11.8-15.2) L 07/02/17 Unknown Hct 25.2 % (35.5-45.6) L 07/02/17 Unknown MCV 94 fl (84-94) 07/02/17 Unknown MCH 33 pg (28-32) H 07/02/17 Unknown MCHC 35 % (32-34) H 07/02/17 Unknown RDW 23.0 % (13.2-15.2) H 07/02/17 Unknown Plt Count 251 K/mm3 (140-440) 07/02/17 Unknown Lymph % (Auto) 29.6 % (13.4-35.0) 07/02/17 Unknown [place] % (Auto) 15.5 % (0.0-7.3) H 07/02/17 Unknown Eos % (Auto) 7.1 % (0.0-4.3) H 07/02/17 Unknown Baso % (Auto) 0.7 % (0.0-1.8) 07/02/17 Unknown Lymph # 3.6 K/mm3 (1.2-5.4) 07/02/17 Unknown [place] # 1.9 K/mm3 (0.0-0.8) H 07/02/17 Unknown Eos # 0.8 K/mm3 (0.0-0.4) H 07/02/17 Unknown Baso # 0.1 K/mm3 (0.0-0.1) 07/02/17 Unknown Add Manual Diff Complete 06/30/17 04:32 Total Counted 100 06/30/17 04:32 Seg Neutrophils % 47.1 % (40.0-70.0) 07/02/17 Unknown Seg Neuts % (Manual) 70.0 % (40.0-70.0) 06/30/17 04:32 Band Neutrophils % 0 % 06/30/17 04:32 Lymphocytes % (Manual) 19.0 % (13.4-35.0) 06/30/17 04:32 Reactive Lymphs % (Man) 0 % 06/30/17 04:32 Monocytes % (Manual) 7.0 % (0.0-7.3) 06/30/17 04:32 Eosinophils % (Manual) 3.0 % (0.0-4.3) 06/30/17 04:32 Basophils % (Manual) 0 % (0.0-1.8) 06/30/17 04:32 Metamyelocytes % 0 % 06/30/17 04:32 Myelocytes % 1.0 % 06/30/17 04:32 Promyelocytes % 0 % 06/30/17 04:32 Blast Cells % 0 % 06/30/17 04:32 Nucleated RBC % Not Reportable 06/30/17 04:32 Seg Neutrophils # 5.7 K/mm3 (1.8-7.7) 07/02/17 Unknown Seg Neutrophils # Man 12.6 K/mm3 (1.8-7.7) H 06/30/17 04:32 Band Neutrophils # 0.0 K/mm3 06/30/17 04:32 Lymphocytes # (Manual) 3.4 K/mm3 (1.2-5.4) 06/30/17 04:32 Abs React Lymphs (Man) 0.0 K/mm3 06/30/17 04:32 Monocytes # (Manual) 1.3 K/mm3 (0.0-0.8) H 06/30/17 04:32 Eosinophils # (Manual) 0.5 K/mm3 (0.0-0.4) H 06/30/17 04:32 Basophils # (Manual) 0.0 K/mm3 (0.0-0.1) 06/30/17 04:32 Metamyelocytes # 0.0 K/mm3 06/30/17 04:32 Myelocytes # 0.2 K/mm3 06/30/17 04:32 Promyelocytes # 0.0 K/mm3 06/30/17 04:32 Blast Cells # 0.0 K/mm3 06/30/17 04:32 WBC Morphology Not Reportable 06/30/17 04:32 Hypersegmented Neuts Not Reportable 06/30/17 04:32 Hyposegmented Neuts Not Reportable 06/30/17 04:32 Hypogranular Neuts Not Reportable 06/30/17 04:32 Smudge Cells Not Reportable 06/30/17 04:32 Toxic Granulation Not Reportable 06/30/17 04:32 Toxic Vacuolation Not Reportable 06/30/17 04:32 Dohle Bodies Not Reportable 06/30/17 04:32 Pelger-Huet Anomaly Not Reportable 06/30/17 04:32 Christian Rods Not Reportable 06/30/17 04:32 Platelet Estimate Consistent w auto 06/30/17 04:32 Clumped Platelets Not Reportable 06/30/17 04:32 Plt Clumps, EDTA Not Reportable 06/30/17 04:32 Large Platelets Not Reportable 06/30/17 04:32 Giant Platelets Not Reportable 06/30/17 04:32 Platelet Satelliting Not Reportable 06/30/17 04:32 Plt Morphology Comment Not Reportable 06/30/17 04:32 RBC Morphology Not Reportable 06/30/17 04:32 Dimorphic RBCs Not Reportable 06/30/17 04:32 Polychromasia Few 06/30/17 04:32 Hypochromasia Not Reportable 06/30/17 04:32 Poikilocytosis Not Reportable 06/30/17 04:32 Anisocytosis Not Reportable 06/30/17 04:32 Microcytosis Not Reportable 06/30/17 04:32 Macrocytosis Not Reportable 06/30/17 04:32 Spherocytes Not Reportable 06/30/17 04:32 Pappenheimer Bodies Not Reportable 06/30/17 04:32 Sickle Cells 3+ 06/30/17 04:32 Target Cells Not Reportable 06/30/17 04:32 Tear Drop Cells Not Reportable 06/30/17 04:32 Ovalocytes Not Reportable 06/30/17 04:32 Stomatocytes Few 06/30/17 04:32 Helmet Cells Not Reportable 06/30/17 04:32 [place] Bodies Not Reportable 06/30/17 04:32 [place] Rings Not Reportable 06/30/17 04:32 Athena Cells Not Reportable 06/30/17 04:32 Bite Cells Not Reportable 06/30/17 04:32 Crenated Cell Not Reportable 06/30/17 04:32 Elliptocytes Not Reportable 06/30/17 04:32 Acanthocytes (Spur) Not Reportable 06/30/17 04:32 Rouleaux Not Reportable 06/30/17 04:32 Hemoglobin C Crystals Not Reportable 06/30/17 04:32 Schistocytes Not Reportable 06/30/17 04:32 Malaria parasites Not Reportable 06/30/17 04:32 Percent Retic 9.73 % (0.78-2.58) H 06/30/17 04:32 You Bodies Not Reportable 06/30/17 04:32 Hem Pathologist Commnt No 06/30/17 04:32 Sodium 133 mmol/L (137-145) L D 07/01/17 05:58 Potassium 4.5 mmol/L (3.6-5.0) 07/01/17 05:58 Chloride 96.8 mmol/L (98-107) L 07/01/17 05:58 Carbon Dioxide 23 mmol/L (22-30) 07/01/17 05:58 Anion Gap 18 mmol/L 07/01/17 05:58 BUN 14 mg/dL (9-20) 07/01/17 05:58 Creatinine 0.3 mg/dL (0.8-1.5) L 07/01/17 05:58 Estimated GFR > 60 ml/min 07/01/17 05:58 BUN/Creatinine Ratio 47 % 07/01/17 05:58 Glucose 85 mg/dL (75-100) 07/01/17 05:58 Calcium 8.7 mg/dL (8.4-10.2) 07/01/17 05:58 Iron 177 ug/dL (49-181) 07/01/17 05:58 TIBC 168 mcg/dL (250-450) L 07/01/17 05:58 Ferritin > 2000.0 ng/mL (13.0-400.0) H 07/01/17 05:58 Urine Color Yellow (Yellow) 06/30/17 05:39 Urine Turbidity Clear (Clear) 06/30/17 05:39 Urine pH 5.0 (5.0-7.0) 06/30/17 05:39 Ur Specific [place] 1.010 (1.003-1.030) 06/30/17 05:39 Urine Protein 100 mg/dl mg/dL (Negative) 06/30/17 05:39 Urine Glucose (UA) Neg mg/dL (Negative) 06/30/17 05:39 Urine Ketones Neg mg/dL (Negative) 06/30/17 05:39 Urine Blood Mod (Negative) 06/30/17 05:39 Urine Nitrite Neg (Negative) 06/30/17 05:39 Urine Bilirubin Neg (Negative) 06/30/17 05:39 Urine Urobilinogen < 2.0 mg/dL (<2.0) 06/30/17 05:39 Ur Leukocyte Esterase Neg (Negative) 06/30/17 05:39 Urine WBC (Auto) < 1.0 /HPF (0.0-6.0) 06/30/17 05:39 Urine RBC (Auto) 1.0 /HPF (0.0-6.0) 06/30/17 05:39 Blood Type O POSITIVE 06/30/17 11:11 Antibody Screen Negative 06/30/17 11:11 Crossmatch See Detail 06/30/17 11:11
--- NOTE | 2017-07-02 18:58 | Progress Note ---
Assessment and Plan - Patient Problems (1) Sickle cell anemia Current Visit: Yes Status: Acute Plan to address problem: labs, monitoring. (2) Sickle cell pain crisis Current Visit: Yes Status: Acute Plan to address problem: Pain control. (3) Acute intractable headache Current Visit: Yes Status: Acute Plan to address problem: May check ct of the brain. Subjective Date of service: 07/02/17 Interval history: Patient seen/examined, resting in bed, labs/notes reviewed, case d/w patient. Patient seen/resting no new issues at the time seen. I had spoken to the primary team earlier today regarding d/c. to be as their disposition. Objective - Constitutional Vitals: Vital Signs - 12hr 07/02/17 07/02/17 07/02/17 08:00 09:03 10:16 Temperature 98.3 F Pulse Rate 59 L 59 L Respiratory 18 Rate Blood Pressure 130/69 130/69 O2 Sat by Pulse 96 94 Oximetry 07/02/17 16:01 Temperature 98.8 F Pulse Rate 63 Respiratory 16 Rate Blood Pressure 131/77 O2 Sat by Pulse 96 Oximetry General appearance: Present: mild distress, well-nourished - EENT Eyes: PERRL, EOM intact ENT: hearing intact, clear oral mucosa Ears: bilateral: normal - Neck Neck: supple, normal ROM - Respiratory Respiratory effort: normal Respiratory: bilateral: CTA - Cardiovascular Rhythm: regular Heart Sounds: Present: S1 & S2. Absent: gallop, rub Extremities: pulses intact, No edema, normal color, Full ROM - Gastrointestinal General gastrointestinal: Present: soft, non-tender, non-distended, normal bowel sounds Rectal Exam: deferred - Genitourinary Male genitourinary: deferred - Integumentary Integumentary: clear, warm, dry - Musculoskeletal Musculoskeletal: 1, strength equal bilaterally - Neurologic Neurologic: moves all extremities - Psychiatric Psychiatric: memory intact, appropriate mood/affect, intact judgment & insight - Labs CBC & Chem 7: 07/02/17 Unknown 07/01/17 05:58 Labs: Abnormal lab results 07/02/17 Range/Units Unknown WBC 12.0 H (4.5-11.0) K/mm3 RBC 2.68 L (3.65-5.03) M/mm3 Hgb 8.9 L (11.8-15.2) gm/dl Hct 25.2 L (35.5-45.6) % MCH 33 H (28-32) pg MCHC 35 H (32-34) % RDW 23.0 H (13.2-15.2) % [place] % (Auto) 15.5 H (0.0-7.3) % Eos % (Auto) 7.1 H (0.0-4.3) % [place] # 1.9 H (0.0-0.8) K/mm3 Eos # 0.8 H (0.0-0.4) K/mm3
[2017-07-02] MEDS ORDERED: PERCOCET 5/325 PO PRN (23:01)
[2017-07-03] MEDS: DILAUDID IV PRN ×3 (02:34→13:10)
[2017-07-03] MEDS: BENADRYL IV PRN ×3 (02:36→13:09)
[2017-07-03 06:51] LABS: Hematocrit 23.9 % (35.5-45.6); Hemoglobin 8.5 gm/dl (11.8-15.2)
[2017-07-03] MEDS: NACL 0.9% 1000 ML 1,000 ML IV SCH (07:06)
[2017-07-03 09:45] VITALS: BP 138/77
--- NOTE | 2017-07-03 10:30 | Discharge Summary ---
Providers - Providers Date of Admission: 06/30/17 09:19 Attending physician: MAGDA MCKEON MD 06/30/17 06:34 Consult to Physician [CONS] Urgent Consulting Provider: DANIEL DE JESUS Reason For Exam: sickle cell crisis, anemia Place consult to:: phone Notified:: awaiting callback Primary care physician: ASSOCIATE BRAND MANAGER Hospitalization Reason for admission: Sickle cell pain crisis Condition: Fair Pertinent studies: Chest x-ray stable cardiomegaly, Port-A-Cath in place CT head no acute intracranial findings Hospital course: Patient is a 32 years old male with past medical history of cardiomyopathy and sickle cell anemia who presents to the emergency department for bilateral bilateral lower extremity and back pain. The pain began Wednesday morning at approximately 4:00 am while the patient was walking to the bath room. The pain was described as aching and had a gradual onset. The patient had difficulty sleeping yesterday because of the pain. The pain continued to gradually increase in severity to an 10/10 today. The pain was exacerbated with walking or standing and was not significantly relieved with Percocet that the patient had by prescription. The knee pain is similar to prior episode of pain crisis. The patient reports some chills and mild SOB, but denies fever, N/V, cough, chest pain, abdominal pain or recent trauma to the legs. Patient is admitted to the floor and his laborer brush clearing oncologist was consulted and recommended to transfuse 2 units of blood. Patient was treated with IV narcotics. Patient showed some improvement in pain and later IV narcotics was changed and discharged home. Patient was given narcotics for short-term and advised to follow-up with his laborer brush clearing oncologist for refills. Patient is hemodynamically stable at time of discharge and hemoglobin was stable. Patient's questions and concerns were addressed as a bedside. Disposition: DC-01 TO HOME OR SELFCARE Time spent for discharge: 31 minutes - Discharge Diagnoses (1) Sickle cell anemia Status: Acute (2) Sickle cell pain crisis Status: Acute (3) Anemia Status: Acute Qualifiers: Chronic kidney disease stage: stage 2 (mild) (4) Arthralgia Status: Acute Qualifiers: Joint pain location: elbow Laterality: bilateral Qualified Code(s): M25.521 - Pain in right elbow; M25.522 - Pain in left elbow; M25.522 - Pain in left elbow Core Measure Documentation - Palliative Care Palliative Care/ Comfort Measures: Not Applicable - Core Measures Any of the following diagnoses?: none Exam - Physical Exam Narrative exam: Not in cardiopulmonary distress. The patient appeared well nourished and normally developed. Vital signs as documented. Head exam is unremarkable. No scleral icterus . Neck is without jugular venous distension, thyromegaly, or carotid bruits. Lungs are clear to auscultation. Cardiac exam reveals regular rate and Rhythm. First and second heart sounds normal. No murmurs, rubs or gallops. Abdominal exam reveals normal bowel sounds, no masses, no organomegaly and no aortic enlargement. Extremities are nonedematous and both femoral and pedal pulses are normal. CHEMIST INORGANIC: Alert and oriented 3. No focal weakness. - Constitutional Vitals: Temp Pulse Resp BP Pulse Ox 98.5 F 62 18 138/77 95 07/03/17 08:09 07/03/17 08:09 07/03/17 08:09 07/03/17 08:09 07/03/17 08:09 Plan Activity: no restrictions Weight Bearing Status: Full Weight Bearing Diet: low cholesterol, low salt Follow up with: PRIMARY CARE, [Primary Care Provider] - 3-5 Days DANIEL DE JESUS DO [Staff Physician] - 7 Days Prescriptions: Oxycodone HCl/Acetaminophen [Percocet 10/325 mg] 1 each PO Q6HR PRN #12 tablet PRN Reason: Pain
[2017-07-03] MEDS: LOVENOX SUB-Q SCH (11:11)
[2017-07-03] MEDS: COREG PO SCH (11:12)
[2017-07-03] MEDS: FOLVITE PO SCH (11:12)
[2017-07-03] MEDS ORDERED: FLUSH HEPARIN IV ONE (11:19)
[2017-07-03] MEDS ORDERED: TRIPLE ANTIBIOTIC TP ONE (11:19)
== END 2017-07-03 14:00 | disposition home or self-care (01) | DRG 812 ==
LOC: ED 03:54 → 3A 09:19
PROVIDERS: ADMIT Internal Medicine; ATTEND Internal Medicine
PROC: 30233N1 Transfusion of Nonautologous Red Blood Cells into Peripheral Vein, Percutaneous Approach (ICD-10-PCS; principal; 2017-06-30)
DX: D57.00 Hb-SS disease with crisis, unspecified (principal); E86.0 Dehydration; R51 Headache; I42.9 Cardiomyopathy, unspecified; Z88.8 Allergy status to other drugs, medicaments and biological substances; I11.0 Hypertensive heart disease with heart failure; I50.9 Heart failure, unspecified; Z90.49 Acquired absence of other specified parts of digestive tract; Z82.49 Family history of ischemic heart disease and other diseases of the circulatory system; M25.522 Pain in left elbow
CPT/HCPCS: 36415; 70450; 71010; 80048; 81001; 82728; 83550; 85007; 85014; 85018; 85025; 85045; 85660; 86850; 86900; 86901; 86920; 87040; 96374; 96375; 96376; A6250; J1170; J1200; J1642; J1650; J1940; J2405; J7030; J7040; P9016

== ENCOUNTER 2017-07-26 16:40 | Emergency (ER) | payer MEDICAID ==
--- NOTE | 2017-07-26 17:26 | Emergency Department Report ---
Chief Complaint: Sickle Cell Crisis Stated Complaint: SICKLE CELL CRISIS Time Seen by Provider: 07/26/17 17:12 - HPI History of Present Illness: 32-year-old male was admitted for blood transfusion and pain crisis for pain control 07/03/17 is at home on his current regimen of MS Contin 30 daily and rescue Percocet 10 states no relief at home .here for evaluation of worsening pain crisis. Question of cough denies fever question of intermittent chest discomfort. Pain is mostly in his usual bony pain crisis areas and ext. pt has access port in place. no fever. - Exam Vital Signs: Vital Signs 07/26/17 16:45 Temperature 98.2 F Pulse Rate 66 Respiratory 18 Rate Blood Pressure 129/76 O2 Sat by Pulse 98 Oximetry Physical Exam: Awake alert oriented 3 nontoxic complaining of painful bone sickle cell crisis. MSE screening note: Focused history and physical exam performed. Due to findings the following was ordered: Laboratory studies and chest x-ray. Patient will go to the main ED for further evaluation after MSE exam ED Disposition for MSE Condition: Stable Referrals: PAOLA ARMETNA MD [Primary Care Provider] - 3-5 Days
[2017-07-26] MEDS ORDERED: NACL 0.9% 1000 ML 1,000 ML IV ONE ×2 (17:33→21:07)
[2017-07-26 20:33] LABS: Hematocrit 21.5 % (35.5-45.6); Hemoglobin 7.4 gm/dl (11.8-15.2); Mean Corpuscular HGB Conc 35 % (32-34); Mean Corpuscular Hemoglobin 32 pg (28-32); Mean Corpuscular Volume 93 fl (84-94); Platelet Count 272 K/mm3 (140-440); Red Blood Count 2.31 M/mm3 (3.65-5.03); Reticulocyte % 17.33 % (0.78-2.58); White Blood Count 18.5 K/mm3 (4.5-11.0)
[2017-07-26 20:42] LABS: Red Cell Distribution Width 22.9 % (13.2-15.2)
[2017-07-26 20:53] LABS: Anion Gap 17 mmol/L; BUN/Creatinine Ratio 43; Blood Urea Nitrogen 13 mg/dL (9-20); Carbon Dioxide 25 mmol/L (22-30); Chloride 102.5 mmol/L (98-107); Glucose 90 mg/dL (75-100); Potassium 4.2 mmol/L (3.6-5.0); Sodium 140 mmol/L (137-145)
--- NOTE | 2017-07-26 21:05 | Emergency Department Report ---
ED Extremity Problem HPI - General Chief complaint: Sickle Cell Crisis Stated complaint: SICKLE CELL CRISIS Time Seen by Provider: 07/26/17 17:12 Source: patient Mode of arrival: Ambulatory Limitations: No Limitations - History of Present Illness Initial comments: 32 YO MALE WITH SICKLE CELL DISEASE HER WITH BILATERAL LOWER EXTREMITY AND HIP PAIN FOR TWO WEEKS. PT HAS H/O SICKLE CELL DISEASE AND HAS BEEN ON HIS HOME MS CONTINS A 30MG DAILY AND RESCUE PERCOCET BUT THESE ARE NOT WORKING. HE IS HERE FOR EVALUATION OF HIS WORSENING PAIN CRISIS. DENIES FEVER,CHILLS,CHEST P [AIN OR COUGH. MD Complaint: extremity pain -: week(s) (2) Location: lower extremity History of Same: Yes -: Yes myalgia, Yes arthralgia, No fever, No associated dyspnea, No associated chest pain Severity scale (0 -10): 8 Quality: aching Consistency: constant Improves with: nothing Worsens with: weight bearing, walking, exertion Associated Symptoms: arthralgias. denies: chest pain, shortness of breath, fever - Related Data Previous Rx's Medication Instructions Recorded Last Taken Type Carvedilol [Coreg] 12.5 mg PO BID #60 tablet 02/28/17 Unknown Rx Folic Acid [Folvite] 1 mg PO QDAY #30 tablet 07/26/17 Unknown Rx Oxycodone HCl/Acetaminophen 2 each PO Q6HR PRN #20 tablet 07/26/17 Unknown Rx [Percocet 10/325 mg] Allergies Allergy/AdvReac Type Severity Reaction Status Date / Time ceftriaxone sodium Allergy Unknown Verified 10/25/15 10:46 [From Rocephin] meperidine HCl [From Demerol] Allergy Unknown Verified 10/25/15 10:46 ED Review of Systems ROS: Stated complaint: SICKLE CELL CRISIS Other details as noted in HPI Constitutional: denies: chills, fever Eyes: denies: eye pain, eye discharge, vision change ENT: denies: ear pain, throat pain Respiratory: denies: cough, shortness of breath, SOB with exertion, SOB at rest , wheezing Cardiovascular: denies: chest pain, palpitations Endocrine: no symptoms reported Gastrointestinal: denies: abdominal pain, nausea, diarrhea Genitourinary: denies: urgency, dysuria Musculoskeletal: back pain (LOWER BACK). denies: joint swelling Skin: denies: rash, lesions Neurological: denies: headache, weakness, paresthesias Psychiatric: denies: anxiety, depression Hematological/Lymphatic: denies: easy bleeding, easy bruising ED Past Medical Hx - Past Medical History Previous Medical History?: Yes Hx Hypertension: Yes Hx Congestive Heart Failure: Yes (cardiomyopathy last EF approximate 40%) Hx Diabetes: No Hx Sickle Cell Disease: Yes Hx Asthma: No Hx COPD: No - Surgical History Past Surgical History?: Yes Hx Cholecystectomy: Yes Additional Surgical History: spleen removed, hernia repair, PIC LINE IN THE LEFT CHEST - Social History Smoking Status: Never Smoker Substance Use Type: None - Medications Home Medications: Home Medications Medication Instructions Recorded Confirmed Last Taken Type Carvedilol [Coreg] 12.5 mg PO BID #60 tablet 02/28/17 06/30/17 Unknown Rx Folic Acid [Folvite] 1 mg PO QDAY #30 tablet 07/26/17 Unknown Rx Oxycodone HCl/Acetaminophen 2 each PO Q6HR PRN #20 tablet 07/26/17 Unknown Rx [Percocet 10/325 mg] ED Physical Exam - General Limitations: No Limitations General appearance: alert, in no apparent distress - Head Head exam: Present: atraumatic, normocephalic - Eye Eye exam: Present: normal appearance, EOMI - ENT ENT exam: Present: mucous membranes moist - Neck Neck exam: Present: normal inspection, full ROM. Absent: tenderness, meningismus - Respiratory Respiratory exam: Present: normal lung sounds bilaterally. Absent: respiratory distress, wheezes, rales, rhonchi, chest wall tenderness, accessory muscle use, decreased breath sounds - Cardiovascular Cardiovascular Exam: Present: regular rate, normal rhythm, normal heart sounds. Absent: systolic murmur, diastolic murmur, rubs, gallop - GI/Abdominal GI/Abdominal exam: Present: soft, normal bowel sounds. Absent: distended, tenderness, guarding - Rectal Rectal exam: Present: deferred - Extremities Exam Extremities exam: Present: normal inspection, full ROM, tenderness (WITHIN BONES ) - Back Exam Back exam: Present: normal inspection, full ROM - Neurological Exam Neurological exam: Present: alert, oriented X3, CN II-XII intact - Psychiatric Psychiatric exam: Present: normal affect, normal mood - Skin Skin exam: Present: warm, dry, intact, normal color. Absent: rash ED Course Vital Signs 07/26/17 07/26/1717 16:45 20:31 21:09 Temperature 98.2 F Pulse Rate 66 77 Respiratory 18 16 18 Rate Blood Pressure 129/76 Blood Pressure 115/69 [Left] O2 Sat by Pulse 98 99 Oximetry - Reevaluation(s) Reevaluation #1: 07/26/17 21:57 RECEIVED DILAUDID AND STILL IN PAIN 07/26/17 22:13 DR SHARMA HIS PCP AND HEME/ONCOLOGIST WAS PAGED AND WANTS THE PT TO BE GIVEN PAIN MEDICATION AND TO SEE HIM IN THE CLINIC IN THE MORNING ED Medical Decision Making - Lab Data Result diagrams: 07/26/17 20:20 07/26/17 20:20 Critical care attestation.: If time is entered above; I have spent that time in minutes in the direct care of this critically ill patient, excluding procedure time. ED Disposition Clinical Impression: Lower extremity pain, bilateral, Sickle cell pain crisis Sickle cell anemia Qualifiers: Sickle-cell associated disorders: with unspecified crisis Qualified Code(s): D57.00 - Hb-SS disease with crisis, unspecified Anemia Qualifiers: Anemia type: unspecified type Qualified Code(s): D64.9 - Anemia, unspecified Disposition: DC-01 TO HOME OR SELFCARE Is pt being admited?: No Does the pt Need Aspirin: No Condition: Stable Instructions: Sickle Cell Crisis (ED), Arthralgia (ED), Knee Pain (ED) Additional Instructions: PLEASE SEE YOUR DR IN THE MORNING. PLEASE SEE DR SHARMA IN THE CLINIC. IF YOUR SYMPTOMS GET WORSE ,PLEASE RETURN TO THE EMERGENCY DEPARTMENT. Prescriptions: Folic Acid [Folvite] 1 mg PO QDAY #30 tablet Oxycodone HCl/Acetaminophen [Percocet 10/325 mg] 2 each PO Q6HR PRN #20 tablet PRN Reason: Pain Referrals: PAOLA ARMENTA MD [Primary Care Provider] - 3-5 Days AUGUSTO SHARMA MD [Staff Physician] - 3-5 Days Time of Disposition: 23:02 (DR ELLISON WILL SEE THE PT IN CLINIC IN THE AM)
[2017-07-26] MEDS ORDERED: DILAUDID IV ONE ×2 (21:07→22:59)
[2017-07-26 21:21] LABS: Basophils % (Manual) 0 % (0.0-1.8); Blastocytes % (Manual) 0 %; Eosinophils % (Manual) 0 % (0.0-4.3)
[2017-07-26 21:22] LABS: Sickle Cells 1+
[2017-07-26 21:23] LABS: Stomatocytes Rare; Target Cells Rare
[2017-07-26 21:24] LABS: Anisocytosis 1+; Diff Status Complete; Platelet Estimate Consistent w Auto
[2017-07-26] MEDS ORDERED: BENADRYL IV ONE (21:31)
[2017-07-26] MEDS ORDERED: BENADRYL ONE (21:31)
[2017-07-26 23:38] VITALS: BP 127/74
[2017-07-26] MEDS ORDERED: FLUSH HEPARIN IV ONE (23:38)
--- NOTE | 2017-07-27 07:24 | XRay Report ---
CHEST 2 VIEWS INDICATION: Wheezing. COMPARISON: 06/30/2017 FINDINGS: Frontal and lateral chest radiographs demonstrate stable cardiomediastinal silhouette/mild cardiomegaly and right chest port tip about the mid right atrium, approximately 3.4 cm below the cavoatrial junction. Slight bronchovascular prominence centrally; otherwise unremarkable lungs. Cholecystectomy clips. Possible sickle cell changes along the spine. CONCLUSION: No acute chest process with stable cardiomegaly and right chest port, as described. Thank you for the opportunity to participate in this patient's care.
== END 2017-07-26 22:31 | disposition home or self-care (01) ==
LOC: ED 16:40
DX: D57.00 Hb-SS disease with crisis, unspecified (principal); D64.9 Anemia, unspecified; M79.604 Pain in right leg; M79.605 Pain in left leg; I10 Essential (primary) hypertension; I50.9 Heart failure, unspecified; Z88.1 Allergy status to other antibiotic agents; Z88.8 Allergy status to other drugs, medicaments and biological substances; Z90.49 Acquired absence of other specified parts of digestive tract; Z98.890 Other specified postprocedural states
CPT/HCPCS: 36415; 71020; 80048; 85007; 85025; 85045; 96361; 96374; 96375; 96376; 99284; J1170; J1200; J1642; J7030

== ENCOUNTER 2018-09-26 14:54 | Inpatient (IN) | payer MEDICAID ==
[2018-09-26] MEDS ORDERED: ZOFRAN IV PRN (16:14)
[2018-09-26] MEDS ORDERED: D5NS 0.2% 1,000 ML IV SCH (17:30)
[2018-09-26] MEDS ORDERED: FLUSH HEPARIN IV ONE (18:17)
[2018-09-26] MEDS: DILAUDID IV PRN ×2 (19:28→23:38)
[2018-09-26] MEDS: BENADRYL IV PRN (19:28)
[2018-09-26] MEDS ORDERED: NON-FORMULARY (Oxycodone Hcl [Oxycodone Tab] 10 MG) PO SCH (19:45)
--- NOTE | 2018-09-26 19:45 | History and Physical Report ---
History of Present Illness Date of examination: 09/26/18 Date of admission: 09/26/18 16:06 Chief complaint: Sickle pain crisis. History of present illness: Patient presented to the Er with CC of diffuse joint pain, examined, and admitted directly.He has hx of chronic iron over load,.also has hyperglycemia. Past History Past Medical History: anemia Social history: single, lives with family Medications and Allergies Allergies Allergy/AdvReac Type Severity Reaction Status Date / Time ceftriaxone sodium Allergy Unknown Verified 03/09/18 07:35 [From Rocephin] meperidine HCl [From Demerol] Allergy Unknown Verified 03/09/18 07:35 Home Medications Medication Instructions Recorded Confirmed Last Taken Type Folic Acid [Folvite] 1 mg PO QDAY #30 tablet 07/26/17 05/10/18 05/09/18 Rx Morphine ER [Ms Contin ER] 60 mg PO Q12H 03/09/18 05/10/18 05/09/18 History Oxycodone HCl [oxyCODONE TAB] 10 mg PO Q8H 03/09/18 05/10/18 05/09/18 History Carvedilol [Coreg] 25 mg PO BID 05/10/18 05/10/18 05/10/18 History Hydroxyurea [Droxia] 200 mg PO DAILY 05/10/18 05/10/18 05/09/18 History Active Meds: Active Medications Carvedilol (Coreg) 25 mg PO BID WAYNE Diphenhydramine HCl (Benadryl) 25 mg IV Q6H PRN PRN Reason: Itching Last Admin: 09/26/18 19:28 Dose: 25 mg Documented by: Folic Acid (Folvite) 1 mg PO QDAY WAYNE Heparin Sodium (Porcine) (Heparin) 5,000 unit SUB-Q Q8HR WAYNE Hydromorphone HCl (Dilaudid) 3 mg IV Q3H PRN PRN Reason: Pain, Moderate (4-6) Last Admin: 09/26/18 19:28 Dose: 3 mg Documented by: Dextrose/Sodium Chloride (D5ns 0.2%) 1,000 mls @ 250 mls/hr IV DIRECT WAYNE Stop: 09/27/18 01:29 Dextrose/Sodium Chloride (D5ns 0.2%) 1,000 mls @ 175 mls/hr IV DIRECT WAYNE Ondansetron HCl (Zofran) 4 mg IV Q12H PRN PRN Reason: Nausea And Vomiting Last Admin: 09/26/18 19:29 Dose: 4 mg Documented by: Review of Systems Constitutional: chronic pain Gastrointestinal: nausea, jaundice Musculoskeletal: shooting leg pain Exam - Constitutional Vitals: Temp Pulse Resp BP Pulse Ox 98.3 F 72 18 133/81 97 09/26/18 18:19 09/26/18 18:19 09/26/18 19:28 09/26/18 18:19 09/26/18 19:36 General appearance: Present: mild distress, well-nourished - EENT Eyes: Present: PERRL ENT: hearing intact, clear oral mucosa - Neck Neck: Present: supple, normal ROM - Respiratory Respiratory effort: normal Respiratory: bilateral: CTA - Cardiovascular Heart Sounds: Present: S1 & S2. Absent: rub, click - Extremities Extremities: pulses symmetrical, No edema Peripheral Pulses: within normal limits - Abdominal General gastrointestinal: Present: soft, non-tender, non-distended, normal bowel sounds Male genitourinary: Present: deferred - Rectal Rectal Exam: deferred - Integumentary Integumentary: Present: clear, warm, dry - Musculoskeletal Musculoskeletal: gait normal, strength equal bilaterally - Psychiatric Psychiatric: appropriate mood/affect, intact judgment & insight - Neurologic Neurologic: CNII-XII intact, moves all extremities Assessment and Plan - Patient Problems (1) Dehydration Current Visit: No Status: Acute Plan to address problem: Hydration. (2) Sickle cell pain crisis Current Visit: Yes Status: Acute Plan to address problem: pain control. (3) Anemia, sickle cell with crisis Current Visit: Yes Status: Acute Plan to address problem: monitor l;abs, and adjust as needed. (4) Iron overload due to repeated red blood cell transfusions Current Visit: Yes Status: Chronic Plan to address problem: monitor levels, and tx as needed.
[2018-09-26 19:51] LABS: Hemoglobin 6.9 gm/dl (11.8-15.2); Mean Corpuscular HGB Conc 36 % (32-34); Mean Corpuscular Volume 95 fl (84-94); Red Blood Count 2.04 M/mm3 (3.65-5.03)
[2018-09-26 20:00] LABS: Hematocrit 19.4 % (35.5-45.6); Platelet Count 225 K/mm3 (140-440); Red Cell Distribution Width 26.1 % (13.2-15.2)
[2018-09-26 20:10] LABS: Alanine Aminotransferase 59 units/L (7-56); Albumin 4.3 g/dL (3.9-5); BUN/Creatinine Ratio 33; Blood Urea Nitrogen 10 mg/dL (9-20); Calcium 8.7 mg/dL (8.4-10.2); Hemolysis Index 14; Iron 166 ug/dL (49-181)
[2018-09-26 20:41] LABS: Basophils % (Manual) 0 % (0.0-1.8); Total Cells Counted 100
[2018-09-26 20:43] LABS: Anisocytosis 2+; Poikilocytosis 1+; Sickle Cells 2+; Spherocytes 1+; Target Cells 2+
[2018-09-26 20:46] LABS: Total Iron Binding Capacity 173 mcg/dL (250-450)
[2018-09-26] MEDS: HEPARIN SUB-Q SCH (21:15)
[2018-09-26] MEDS: ROXICODONE PO SCH (21:16)
[2018-09-26] MEDS: COREG PO SCH (21:17)
[2018-09-26] MEDS ORDERED: NACL 0.9% 500 ML 500 ML IV ONE (22:26)
[2018-09-27] MEDS: DILAUDID IV PRN ×5 (03:44→21:23)
[2018-09-27] MEDS: BENADRYL IV PRN ×3 (03:44→17:24)
[2018-09-27] MEDS: ROXICODONE PO SCH ×4 (04:15→21:31)
[2018-09-27] MEDS: D5NS 0.2% 1,000 ML IV SCH ×2 (04:17→13:37)
[2018-09-27] MEDS: HEPARIN SUB-Q SCH ×3 (05:14→21:29)
[2018-09-27] MEDS: COREG PO SCH ×2 (09:23→21:30)
[2018-09-27] MEDS: FOLVITE PO SCH (09:23)
[2018-09-27] MEDS: Desferal 3,000 MG in NACL 0.9% 250ML 250 ML IV SCH (09:24)
[2018-09-27] MEDS ORDERED: HYDROXYUREA 200 MG PO SCH (10:00)
[2018-09-27] MEDS: HYDREA PO SCH (13:35)
[2018-09-27] MEDS ORDERED: NACL 0.9% 500 ML 500 ML IV NR (17:30)
--- NOTE | 2018-09-27 19:15 | Progress Note ---
Assessment and Plan - Patient Problems (1) Dehydration Current Visit: No Status: Acute Plan to address problem: Hydration. (2) Sickle cell pain crisis Current Visit: Yes Status: Acute Plan to address problem: pain control. (3) Anemia, sickle cell with crisis Current Visit: Yes Status: Acute Plan to address problem: monitor l;abs, and adjust as needed. continue with blood transfusion. (4) Iron overload due to repeated red blood cell transfusions Current Visit: Yes Status: Chronic Plan to address problem: monitor levels, and tx as needed. Subjective Date of service: 09/27/18 Principal diagnosis: SCD/Pain crisis. Interval history: patient seen/examined, resting in bed, blood transfusion in progress.. no new issues at this time. Objective - Constitutional Vitals: Vital Signs - 12hr 09/27/18 09/27/18 09/27/18 09:23 09:33 10:00 Temperature Pulse Rate 65 Respiratory 20 Rate Blood Pressure 127/76 Blood Pressure [Right] O2 Sat by Pulse 93 Oximetry 09/27/18 09/27/18 09/27/18 10:03 11:25 13:39 Temperature 98.5 F Pulse Rate 66 Respiratory 20 14 20 Rate Blood Pressure 114/63 Blood Pressure [Right] O2 Sat by Pulse 91 Oximetry 09/27/18 09/27/18 09/27/18 13:59 14:09 14:59 Temperature Pulse Rate Respiratory 20 18 18 Rate Blood Pressure Blood Pressure [Right] O2 Sat by Pulse Oximetry 09/27/18 09/27/18 09/27/18 15:53 17:14 17:16 Temperature 98.2 F 98.6 F Pulse Rate 64 Respiratory 14 20 20 Rate Blood Pressure 108/54 136/78 Blood Pressure [Right] O2 Sat by Pulse 93 Oximetry 09/27/18 09/27/18 09/27/18 17:25 17:49 18:04 Temperature 97.9 F 97.9 F Pulse Rate 68 67 Respiratory 20 20 18 Rate Blood Pressure 133/82 135/87 Blood Pressure [Right] O2 Sat by Pulse 94 92 Oximetry 09/27/18 09/27/18 09/27/18 18:34 18:45 19:04 Temperature 98.3 F 98.9 F Pulse Rate 65 64 Respiratory 92 H 18 Rate Blood Pressure 110/66 Blood Pressure 126/75 [Right] O2 Sat by Pulse 92 Oximetry General appearance: Present: mild distress, well-nourished - EENT Eyes: PERRL, EOM intact ENT: hearing intact, clear oral mucosa Ears: bilateral: normal - Neck Neck: supple, normal ROM - Respiratory Respiratory effort: normal Respiratory: bilateral: CTA - Breasts Breasts: deferred - Cardiovascular Rhythm: regular Heart Sounds: Present: S1 & S2. Absent: gallop, rub Extremities: pulses intact, No edema, normal color, Full ROM - Gastrointestinal General gastrointestinal: Present: soft, non-tender, non-distended, normal bowel sounds Rectal Exam: deferred - Genitourinary Male genitourinary: deferred - Integumentary Integumentary: clear, warm, dry - Musculoskeletal Musculoskeletal: 1, strength equal bilaterally - Neurologic Neurologic: moves all extremities - Psychiatric Psychiatric: memory intact, appropriate mood/affect, intact judgment & insight - Labs CBC & Chem 7: 09/26/18 19:15 09/26/18 19:15 Labs: Abnormal lab results 09/26/18 09/26/18 09/26/18 Range/Units 19:15 19:15 19:15 WBC 13.0 H (4.5-11.0) K/mm3 RBC 2.04 L (3.65-5.03) M/mm3 Hgb 6.9 L (11.8-15.2) gm/dl Hct 19.4 L* (35.5-45.6) % MCV 95 H (84-94) fl MCH 34 H (28-32) pg MCHC 36 H (32-34) % RDW 26.1 H (13.2-15.2) % Monocytes % (Manual) 11.0 H (0.0-7.3) % Monocytes # (Manual) 1.4 H (0.0-0.8) K/mm3 Percent Retic 12.94 H (0.78-2.58) % Creatinine 0.3 L (0.8-1.5) mg/dL Glucose 108 H (75-100) mg/dL TIBC 173 L (250-450) mcg/dL Ferritin (13.0-400.0) ng/mL Total Bilirubin 5.70 H (0.1-1.2) mg/dL AST 103 H (5-40) units/L ALT 59 H (7-56) units/L Alkaline Phosphatase 151 H (35-129) units/L Lactate Dehydrogenase 794 H (91-180) units/L Crossmatch 09/26/18 09/26/18 Range/Units 19:15 23:07 WBC (4.5-11.0) K/mm3 RBC (3.65-5.03) M/mm3 Hgb (11.8-15.2) gm/dl Hct (35.5-45.6) % MCV (84-94) fl MCH (28-32) pg MCHC (32-34) % RDW (13.2-15.2) % Monocytes % (Manual) (0.0-7.3) % Monocytes # (Manual) (0.0-0.8) K/mm3 Percent Retic (0.78-2.58) % Creatinine (0.8-1.5) mg/dL Glucose (75-100) mg/dL TIBC (250-450) mcg/dL Ferritin 7590.0 H (13.0-400.0) ng/mL Total Bilirubin (0.1-1.2) mg/dL AST (5-40) units/L ALT (7-56) units/L Alkaline Phosphatase (35-129) units/L Lactate Dehydrogenase (91-180) units/L Crossmatch See Detail Medications & Allergies - Medications Allergies/Adverse Reactions: Allergies ceftriaxone sodium [From Rocephin] Allergy (Verified 03/09/18 07:35) Unknown meperidine HCl [From Demerol] Allergy (Verified 03/09/18 07:35) Unknown Home Medications: Home Medications Medication Instructions Recorded Confirmed Last Taken Type Folic Acid [Folvite] 1 mg PO QDAY #30 tablet 07/26/17 09/26/18 05/09/18 Rx Morphine ER [Ms Contin ER] 60 mg PO Q12H 03/09/18 09/26/18 05/09/18 History Oxycodone HCl [oxyCODONE TAB] 10 mg PO Q8H 03/09/18 09/26/18 05/09/18 History Carvedilol [Coreg] 25 mg PO BID 05/10/18 09/26/18 09/25/18 History Hydrea 1,000 mg PO DAILY 09/27/18 09/27/18 Unknown History Active Medications: Generic Name Dose Route Start Last Admin Trade Name Freq PRN Reason Stop Dose Admin Carvedilol 25 mg 09/26/18 22:00 09/27/18 09:23 Coreg PO 25 mg BID WAYNE Administration Diphenhydramine HCl 25 mg 09/26/18 16:13 09/27/18 17:24 Benadryl IV 25 mg Q6H PRN Administration Itching Folic Acid 1 mg 09/27/18 10:00 09/27/18 09:23 Folvite PO 1 mg QDAY WAYNE Administration Heparin Sodium (Porcine) 5,000 unit 09/26/18 22:00 09/27/18 13:33 Heparin SUB-Q 5,000 unit Q8HR WAYNE Administration Hydromorphone HCl 3 mg 09/26/18 16:12 09/27/18 17:25 Dilaudid IV 3 mg Q3H PRN Administration Pain, Moderate (4-6) Hydroxyurea 1,000 mg 09/27/18 11:30 09/27/18 13:35 Hydrea PO 1,000 mg QDAY WAYNE Administration Dextrose/Sodium Chloride 1,000 mls @ 175 mls/hr 09/27/18 01:30 09/27/18 13:37 D5ns 0.2% IV 175 mls/hr DIRECT WAYNE Administration Deferoxamine Mesylate 3,000 mg 250 mls @ 32 mls/hr 09/27/18 10:00 09/27/18 09:24 / Sodium Chloride IV 10/01/18 17:49 32 mls/hr Q24HR WAYNE Administration Sodium Chloride 500 mls @ 0 mls/hr 09/27/18 17:30 Nacl 0.9% 500 Ml IV 09/27/18 23:59 ONCE NR As Directed Ondansetron HCl 4 mg 09/26/18 16:14 09/26/18 19:29 Zofran IV 4 mg Q12H PRN Administration Nausea And Vomiting Oxycodone HCl 10 mg 09/27/18 14:00 09/27/18 13:59 Roxicodone PO 10 mg Q8HR WAYNE Administration
[2018-09-28] MEDS: DILAUDID IV PRN ×6 (00:40→21:25)
[2018-09-28] MEDS: BENADRYL IV PRN ×3 (00:40→17:04)
[2018-09-28] MEDS: HEPARIN SUB-Q SCH ×3 (05:31→21:25)
[2018-09-28] MEDS: ROXICODONE PO SCH ×3 (05:32→21:24)
[2018-09-28 06:08] LABS: Hematocrit 25.1 % (35.5-45.6); Mean Corpuscular HGB Conc 36 % (32-34); Mean Corpuscular Volume 94 fl (84-94); Red Blood Count 2.67 M/mm3 (3.65-5.03)
[2018-09-28 06:09] LABS: Platelet Count 206 K/mm3 (140-440); Red Cell Distribution Width 22.6 % (13.2-15.2)
[2018-09-28 06:44] LABS: Anisocytosis 2+; Band Neutrophils # (Manual) 0.1 K/mm3; Basophilic Stippling 1+; Hypochromasia 1+; Large Platelets Few; Myelocytes # (Manual) 0.1 K/mm3; Ovalocytes 1+; Poikilocytosis 1+; Schistocytes Rare; Sickle Cells 2+; Target Cells 2+; Total Cells Counted 100
[2018-09-28] MEDS: D5NS 0.2% 1,000 ML IV SCH ×2 (08:38→23:10)
[2018-09-28] MEDS: FOLVITE PO SCH (12:29)
[2018-09-28] MEDS: Desferal 3,000 MG in NACL 0.9% 250ML 250 ML IV SCH (12:29)
[2018-09-28] MEDS: HYDREA PO SCH (12:30)
[2018-09-28] MEDS: COREG PO SCH ×2 (12:31→21:29)
--- NOTE | 2018-09-28 19:28 | Progress Note ---
Assessment and Plan - Patient Problems (1) Dehydration Current Visit: No Status: Acute Plan to address problem: Hydration. (2) Sickle cell pain crisis Current Visit: Yes Status: Acute Plan to address problem: pain control. (3) Anemia, sickle cell with crisis Current Visit: Yes Status: Acute Plan to address problem: monitor l;abs, and adjust as needed. continue with blood transfusion. (4) Iron overload due to repeated red blood cell transfusions Current Visit: Yes Status: Chronic Plan to address problem: monitor levels, and tx as needed. continue Desferol. Subjective Date of service: 09/28/18 Principal diagnosis: SCD/Pain crisis. Interval history: patient seen/examined, resting in bed, blood transfusion in progress.. no new issues at this time. Patient seen/examined, resting in bed, labs,reviewed, post transfusio, and stable,except for the LFTs, and ferretin.Will continue Desferal. Objective - Constitutional Vitals: Vital Signs - 12hr 09/28/18 09/28/18 09/28/18 09:11 11:22 16:51 Temperature 97.9 F 98.4 F Pulse Rate 70 73 Respiratory 18 18 Rate Blood Pressure 120/65 141/89 O2 Sat by Pulse 95 95 93 Oximetry General appearance: Present: mild distress - EENT Eyes: PERRL, EOM intact ENT: hearing intact, clear oral mucosa Ears: bilateral: normal - Neck Neck: supple, normal ROM - Respiratory Respiratory effort: normal Respiratory: bilateral: CTA - Breasts Breasts: deferred - Cardiovascular Rhythm: regular Heart Sounds: Present: S1 & S2. Absent: gallop, rub Extremities: pulses intact, No edema, normal color, Full ROM - Gastrointestinal General gastrointestinal: Present: soft, non-tender, non-distended, normal bowel sounds - Genitourinary Male genitourinary: deferred - Integumentary Integumentary: clear, warm, dry - Musculoskeletal Musculoskeletal: 1, strength equal bilaterally - Neurologic Neurologic: moves all extremities - Psychiatric Psychiatric: memory intact, appropriate mood/affect, intact judgment & insight - Labs CBC & Chem 7: 09/28/18 06:05 09/26/18 19:15 Labs: Abnormal lab results 09/26/18 09/28/18 Range/Units 23:07 06:05 RBC 2.67 L (3.65-5.03) M/mm3 Hgb 9.0 L (11.8-15.2) gm/dl Hct 25.1 L (35.5-45.6) % MCH 34 H (28-32) pg MCHC 36 H (32-34) % RDW 22.6 H (13.2-15.2) % Lymphocytes % (Manual) 38.0 H (13.4-35.0) % Eosinophils % (Manual) 6.0 H (0.0-4.3) % Nucleated RBC % 2.0 H (0.0-0.9) % Eosinophils # (Manual) 0.6 H (0.0-0.4) K/mm3 Crossmatch See Detail Medications & Allergies - Medications Allergies/Adverse Reactions: Allergies ceftriaxone sodium [From Rocephin] Allergy (Verified 03/09/18 07:35) Unknown meperidine HCl [From Demerol] Allergy (Verified 03/09/18 07:35) Unknown Home Medications: Home Medications Medication Instructions Recorded Confirmed Last Taken Type Folic Acid [Folvite] 1 mg PO QDAY #30 tablet 07/26/17 09/26/18 05/09/18 Rx Morphine ER [Ms Contin ER] 60 mg PO Q12H 03/09/18 09/26/18 05/09/18 History Oxycodone HCl [oxyCODONE TAB] 10 mg PO Q8H 03/09/18 09/26/18 05/09/18 History Carvedilol [Coreg] 25 mg PO BID 05/10/18 09/26/18 09/25/18 History Hydrea 1,000 mg PO DAILY 09/27/18 09/27/18 Unknown History Active Medications: Generic Name Dose Route Start Last Admin Trade Name Freq PRN Reason Stop Dose Admin Carvedilol 25 mg 09/26/18 22:00 09/28/18 12:31 Coreg PO 25 mg BID WAYNE Administration Diphenhydramine HCl 25 mg 09/26/18 16:13 09/28/18 17:04 Benadryl IV 25 mg Q6H PRN Administration Itching Folic Acid 1 mg 09/27/18 10:00 09/28/18 12:29 Folvite PO 1 mg QDAY WAYNE Administration Heparin Sodium (Porcine) 5,000 unit 09/26/18 22:00 09/28/18 15:11 Heparin SUB-Q 5,000 unit Q8HR WAYNE Administration Hydromorphone HCl 3 mg 09/26/18 16:12 09/28/18 17:04 Dilaudid IV 3 mg Q3H PRN Administration Pain, Moderate (4-6) Hydroxyurea 1,000 mg 09/27/18 11:30 09/28/18 12:30 Hydrea PO 1,000 mg QDAY WAYNE Administration Dextrose/Sodium Chloride 1,000 mls @ 175 mls/hr 09/27/18 01:30 09/28/18 08:38 D5ns 0.2% IV 175 mls/hr DIRECT WAYNE Administration Deferoxamine Mesylate 3,000 mg 250 mls @ 32 mls/hr 09/27/18 10:00 09/28/18 12:29 / Sodium Chloride IV 10/01/18 17:49 32 mls/hr Q24HR WAYNE Administration Ondansetron HCl 4 mg 09/26/18 16:14 09/26/18 19:29 Zofran IV 4 mg Q12H PRN Administration Nausea And Vomiting Oxycodone HCl 10 mg 09/27/18 14:00 09/28/18 15:11 Roxicodone PO 10 mg Q8HR WAYNE Administration
[2018-09-29] MEDS: DILAUDID IV PRN ×6 (01:07→20:49)
[2018-09-29] MEDS: BENADRYL IV PRN ×4 (01:08→20:55)
[2018-09-29] MEDS: ROXICODONE PO SCH ×3 (05:17→23:34)
[2018-09-29] MEDS: HEPARIN SUB-Q SCH ×3 (05:18→22:00)
[2018-09-29] MEDS: D5NS 0.2% 1,000 ML IV SCH ×2 (08:35→20:50)
[2018-09-29] MEDS: HYDREA PO SCH (10:09)
[2018-09-29] MEDS: COREG PO SCH ×2 (10:09→23:35)
[2018-09-29] MEDS: FOLVITE PO SCH (10:09)
[2018-09-29] MEDS: Desferal 3,000 MG in NACL 0.9% 250ML 250 ML IV SCH (10:26)
--- NOTE | 2018-09-29 18:33 | Progress Note ---
Assessment and Plan - Patient Problems (1) Dehydration Current Visit: No Status: Acute Plan to address problem: Hydration. (2) Sickle cell pain crisis Current Visit: Yes Status: Acute Plan to address problem: pain control. (3) Anemia, sickle cell with crisis Current Visit: Yes Status: Acute Plan to address problem: monitor l;abs, and adjust as needed. continue with blood transfusion. (4) Iron overload due to repeated red blood cell transfusions Current Visit: Yes Status: Chronic Plan to address problem: monitor levels, and tx as needed. continue Desferol. Subjective Date of service: 09/29/18 Principal diagnosis: SCD/Pain crisis. Interval history: patient seen/examined, resting in bed, blood transfusion in progress.. no new issues at this time. Patient seen/examined, resting in bed, labs,reviewed, post transfusio, and stable,except for the LFTs, and ferretin.Will continue Desferal. Patient seen/examined, resting in bed, labs reviewed, case d/w patient.He will continue with desferol for another 24to 48hrs, and then D/c. Objective - Constitutional Vitals: Vital Signs - 12hr 09/29/18 09/29/18 09/29/18 10:09 11:26 11:28 Temperature 98.1 F Pulse Rate 60 65 Respiratory 18 Rate Blood Pressure 136/82 122/63 O2 Sat by Pulse 97 95 Oximetry General appearance: Present: mild distress, well-nourished - EENT Eyes: PERRL, EOM intact ENT: hearing intact, clear oral mucosa Ears: bilateral: normal - Neck Neck: supple, normal ROM - Respiratory Respiratory effort: normal Respiratory: bilateral: CTA - Breasts Breasts: deferred - Cardiovascular Rhythm: regular Heart Sounds: Present: S1 & S2. Absent: gallop, rub Extremities: pulses intact, No edema, normal color, Full ROM - Gastrointestinal General gastrointestinal: Present: soft, non-tender, non-distended, normal bowel sounds - Genitourinary Male genitourinary: deferred - Integumentary Integumentary: clear, warm, dry - Musculoskeletal Musculoskeletal: 1, strength equal bilaterally - Neurologic Neurologic: moves all extremities - Psychiatric Psychiatric: memory intact, appropriate mood/affect, intact judgment & insight - Labs CBC & Chem 7: 09/28/18 06:05 09/26/18 19:15 Labs: Abnormal lab results 09/29/18 Range/Units 07:12 Percent Retic 12.64 H (0.78-2.58) % Medications & Allergies - Medications Allergies/Adverse Reactions: Allergies ceftriaxone sodium [From Rocephin] Allergy (Verified 03/09/18 07:35) Unknown meperidine HCl [From Demerol] Allergy (Verified 03/09/18 07:35) Unknown Home Medications: Home Medications Medication Instructions Recorded Confirmed Last Taken Type Folic Acid [Folvite] 1 mg PO QDAY #30 tablet 07/26/17 09/26/18 05/09/18 Rx Morphine ER [Ms Contin ER] 60 mg PO Q12H 03/09/18 09/26/18 05/09/18 History Oxycodone HCl [oxyCODONE TAB] 10 mg PO Q8H 03/09/18 09/26/18 05/09/18 History Carvedilol [Coreg] 25 mg PO BID 05/10/18 09/26/18 09/25/18 History Hydrea 1,000 mg PO DAILY 09/27/18 09/27/18 Unknown History Active Medications: Generic Name Dose Route Start Last Admin Trade Name Freq PRN Reason Stop Dose Admin Carvedilol 25 mg 09/26/18 22:00 09/29/18 10:09 Coreg PO 25 mg BID WAYNE Administration Diphenhydramine HCl 25 mg 09/26/18 16:13 09/29/18 14:09 Benadryl IV 25 mg Q6H PRN Administration Itching Folic Acid 1 mg 09/27/18 10:00 09/29/18 10:09 Folvite PO 1 mg QDAY WAYNE Administration Heparin Sodium (Porcine) 5,000 unit 09/26/18 22:00 09/29/18 14:09 Heparin SUB-Q 5,000 unit Q8HR WAYNE Administration Hydromorphone HCl 3 mg 09/26/18 16:12 09/29/18 17:33 Dilaudid IV 3 mg Q3H PRN Administration Pain, Moderate (4-6) Hydroxyurea 1,000 mg 09/27/18 11:30 09/29/18 10:09 Hydrea PO 1,000 mg QDAY WAYNE Administration Dextrose/Sodium Chloride 1,000 mls @ 175 mls/hr 09/27/18 01:30 09/29/18 08:35 D5ns 0.2% IV 175 mls/hr DIRECT WAYNE Administration Deferoxamine Mesylate 3,000 mg 250 mls @ 32 mls/hr 09/27/18 10:00 09/29/18 10:26 / Sodium Chloride IV 10/01/18 17:49 32 mls/hr Q24HR WAYNE Administration Ondansetron HCl 4 mg 09/26/18 16:14 09/26/18 19:29 Zofran IV 4 mg Q12H PRN Administration Nausea And Vomiting Oxycodone HCl 10 mg 09/27/18 14:00 09/29/18 14:07 Roxicodone PO 10 mg Q8HR WAYNE Administration
[2018-09-30] MEDS: DILAUDID IV PRN ×6 (02:51→21:33)
[2018-09-30] MEDS: BENADRYL IV PRN ×4 (02:51→21:39)
[2018-09-30] MEDS: ROXICODONE PO SCH ×3 (06:20→21:32)
[2018-09-30] MEDS: HEPARIN SUB-Q SCH ×3 (06:21→21:39)
[2018-09-30] MEDS: D5NS 0.2% 1,000 ML IV SCH ×2 (06:30→15:41)
[2018-09-30] MEDS: HYDREA PO SCH (10:12)
[2018-09-30] MEDS: FOLVITE PO SCH (10:12)
[2018-09-30] MEDS: COREG PO SCH ×2 (10:13→21:33)
[2018-09-30] MEDS: Desferal 3,000 MG in NACL 0.9% 250ML 250 ML IV SCH (12:51)
--- NOTE | 2018-09-30 21:53 | Progress Note ---
Assessment and Plan - Patient Problems (1) Dehydration Current Visit: No Status: Acute Plan to address problem: Hydration. (2) Sickle cell pain crisis Current Visit: Yes Status: Acute Plan to address problem: pain control. (3) Anemia, sickle cell with crisis Current Visit: Yes Status: Acute Plan to address problem: monitor l;abs, and adjust as needed. continue with blood transfusion. (4) Iron overload due to repeated red blood cell transfusions Current Visit: Yes Status: Chronic Plan to address problem: monitor levels, and tx as needed. continue Desferol. Subjective Date of service: 09/30/18 Principal diagnosis: SCD/Pain crisis. Interval history: patient seen/examined, resting in bed, blood transfusion in progress.. no new issues at this time. Patient seen/examined, resting in bed, labs,reviewed, post transfusio, and stable,except for the LFTs, and ferretin.Will continue Desferal. Patient seen/examined, resting in bed, labs reviewed, case d/w patient.He will continue with desferol for another 24to 48hrs, and then D/c Patient seen/examined, resting in bed, no new labs. desferol infusing ok. will d/c home tomorrow. Objective - Constitutional Vitals: Vital Signs - 12hr 09/30/18 09/30/18 09/30/18 10:13 11:45 16:01 Temperature 97.9 F 98.2 F Pulse Rate 66 64 68 Respiratory 20 19 Rate Blood Pressure 143/66 135/72 141/90 O2 Sat by Pulse 96 95 Oximetry 09/30/18 09/30/18 21:32 21:33 Temperature Pulse Rate 68 Respiratory 18 18 Rate Blood Pressure 140/88 O2 Sat by Pulse Oximetry General appearance: Present: mild distress, well-nourished - EENT Eyes: PERRL, EOM intact ENT: hearing intact, clear oral mucosa Ears: bilateral: normal - Neck Neck: supple, normal ROM - Respiratory Respiratory effort: normal Respiratory: bilateral: CTA - Breasts Breasts: deferred - Cardiovascular Rhythm: regular Heart Sounds: Present: S1 & S2. Absent: gallop, rub Extremities: pulses intact, No edema, normal color, Full ROM - Gastrointestinal General gastrointestinal: Present: soft, non-tender, non-distended, normal bowel sounds Rectal Exam: deferred - Genitourinary Male genitourinary: deferred - Integumentary Integumentary: clear, warm, dry - Musculoskeletal Musculoskeletal: 1, strength equal bilaterally - Neurologic Neurologic: moves all extremities - Psychiatric Psychiatric: memory intact, appropriate mood/affect, intact judgment & insight - Labs CBC & Chem 7: 09/28/18 06:05 09/26/18 19:15 Medications & Allergies - Medications Allergies/Adverse Reactions: Allergies ceftriaxone sodium [From Rocephin] Allergy (Verified 03/09/18 07:35) Unknown meperidine HCl [From Demerol] Allergy (Verified 03/09/18 07:35) Unknown Home Medications: Home Medications Medication Instructions Recorded Confirmed Last Taken Type Folic Acid [Folvite] 1 mg PO QDAY #30 tablet 07/26/17 09/26/18 05/09/18 Rx Morphine ER [Ms Contin ER] 60 mg PO Q12H 03/09/18 09/26/18 05/09/18 History Oxycodone HCl [oxyCODONE TAB] 10 mg PO Q8H 03/09/18 09/26/18 05/09/18 History Carvedilol [Coreg] 25 mg PO BID 05/10/18 09/26/18 09/25/18 History Hydrea 1,000 mg PO DAILY 09/27/18 09/27/18 Unknown History Active Medications: Generic Name Dose Route Start Last Admin Trade Name Freq PRN Reason Stop Dose Admin Carvedilol 25 mg 09/26/18 22:00 09/30/18 21:33 Coreg PO 25 mg BID WAYNE Administration Diphenhydramine HCl 25 mg 09/26/18 16:13 09/30/18 21:39 Benadryl IV 25 mg Q6H PRN Administration Itching Folic Acid 1 mg 09/27/18 10:00 09/30/18 10:12 Folvite PO 1 mg QDAY WAYNE Administration Heparin Sodium (Porcine) 5,000 unit 09/26/18 22:00 09/30/18 21:39 Heparin SUB-Q 5,000 unit Q8HR WAYNE Administration Hydromorphone HCl 3 mg 09/26/18 16:12 09/30/18 21:33 Dilaudid IV 3 mg Q3H PRN Administration Pain, Moderate (4-6) Hydroxyurea 1,000 mg 09/27/18 11:30 09/30/18 10:12 Hydrea PO 1,000 mg QDAY WAYNE Administration Dextrose/Sodium Chloride 1,000 mls @ 175 mls/hr 09/27/18 01:30 09/30/18 15:41 D5ns 0.2% IV 175 mls/hr DIRECT WAYNE Administration Deferoxamine Mesylate 3,000 mg 250 mls @ 32 mls/hr 09/27/18 10:00 09/30/18 12:51 / Sodium Chloride IV 10/01/18 17:49 32 mls/hr Q24HR WAYNE Administration Ondansetron HCl 4 mg 09/26/18 16:14 09/26/18 19:29 Zofran IV 4 mg Q12H PRN Administration Nausea And Vomiting Oxycodone HCl 10 mg 09/27/18 14:00 09/30/18 21:32 Roxicodone PO 10 mg Q8HR WAYNE Administration
[2018-10-01] MEDS: DILAUDID IV PRN ×7 (01:00→21:13)
[2018-10-01] MEDS: BENADRYL IV PRN ×3 (04:29→17:58)
[2018-10-01] MEDS: ROXICODONE PO SCH ×3 (06:24→21:27)
[2018-10-01] MEDS: HEPARIN SUB-Q SCH ×3 (06:26→21:27)
[2018-10-01] MEDS: HYDREA PO SCH (09:43)
[2018-10-01] MEDS: FOLVITE PO SCH (09:43)
[2018-10-01] MEDS: COREG PO SCH ×2 (09:47→21:28)
[2018-10-01] MEDS: D5NS 0.2% 1,000 ML IV SCH ×2 (13:13→18:49)
[2018-10-01] MEDS: Desferal 3,000 MG in NACL 0.9% 250ML 250 ML IV SCH (13:13)
--- NOTE | 2018-10-01 17:22 | Progress Note ---
Assessment and Plan - Patient Problems (1) Dehydration Current Visit: No Status: Acute Plan to address problem: Hydration. (2) Sickle cell pain crisis Current Visit: Yes Status: Acute Plan to address problem: pain control. (3) Anemia, sickle cell with crisis Current Visit: Yes Status: Acute Plan to address problem: monitor l;abs, and adjust as needed. continue with blood transfusion. (4) Iron overload due to repeated red blood cell transfusions Current Visit: Yes Status: Chronic Plan to address problem: monitor levels, and tx as needed. continue Desferol. Subjective Date of service: 10/01/18 Principal diagnosis: SCD/Pain crisis. Interval history: patient seen/examined, resting in bed, blood transfusion in progress.. no new issues at this time. Patient seen/examined, resting in bed, labs,reviewed, post transfusio, and stable,except for the LFTs, and ferretin.Will continue Desferal. Patient seen/examined, resting in bed, labs reviewed, case d/w patient.He will continue with desferol for another 24to 48hrs, and then D/c Patient seen/examined, resting in bed, no new labs. desferol infusing ok. will d/c home tomorrow. patient seen/examined, resting in bed, new labs ordered. patient c/o pain in the lower back, now 6-7/10.Will treat for one more day, then discharge. Objective - Constitutional Vitals: Vital Signs - 12hr 10/01/18 10/01/18 05:29 09:47 Temperature 98.5 F Pulse Rate 66 61 Respiratory 18 Rate Blood Pressure 120/58 141/84 O2 Sat by Pulse 94 Oximetry General appearance: Present: mild distress, well-nourished - EENT Eyes: PERRL, EOM intact ENT: hearing intact, clear oral mucosa Ears: bilateral: normal - Neck Neck: supple, normal ROM - Respiratory Respiratory effort: normal Respiratory: bilateral: CTA - Breasts Breasts: deferred - Cardiovascular Rhythm: regular Heart Sounds: Present: S1 & S2. Absent: gallop, rub Extremities: pulses intact, No edema, normal color, Full ROM - Gastrointestinal General gastrointestinal: Present: soft, non-tender, non-distended, normal bowel sounds Rectal Exam: deferred - Genitourinary Male genitourinary: deferred - Integumentary Integumentary: clear, warm, dry - Musculoskeletal Musculoskeletal: 1, strength equal bilaterally - Neurologic Neurologic: moves all extremities - Psychiatric Psychiatric: memory intact, appropriate mood/affect, intact judgment & insight - Labs CBC & Chem 7: 09/28/18 06:05 09/26/18 19:15 Medications & Allergies - Medications Allergies/Adverse Reactions: Allergies ceftriaxone sodium [From Rocephin] Allergy (Verified 03/09/18 07:35) Unknown meperidine HCl [From Demerol] Allergy (Verified 03/09/18 07:35) Unknown Home Medications: Home Medications Medication Instructions Recorded Confirmed Last Taken Type Folic Acid [Folvite] 1 mg PO QDAY #30 tablet 07/26/17 09/26/18 05/09/18 Rx Morphine ER [Ms Contin ER] 60 mg PO Q12H 03/09/18 09/26/18 05/09/18 History Oxycodone HCl [oxyCODONE TAB] 10 mg PO Q8H 03/09/18 09/26/18 05/09/18 History Carvedilol [Coreg] 25 mg PO BID 05/10/18 09/26/18 09/25/18 History Hydrea 1,000 mg PO DAILY 09/27/18 09/27/18 Unknown History Active Medications: Generic Name Dose Route Start Last Admin Trade Name Freq PRN Reason Stop Dose Admin Carvedilol 25 mg 09/26/18 22:00 10/01/18 09:47 Coreg PO 25 mg BID WAYNE Administration Diphenhydramine HCl 25 mg 09/26/18 16:13 10/01/18 11:35 Benadryl IV 25 mg Q6H PRN Administration Itching Folic Acid 1 mg 09/27/18 10:00 10/01/18 09:43 Folvite PO 1 mg QDAY WAYNE Administration Heparin Sodium (Porcine) 5,000 unit 09/26/18 22:00 10/01/18 14:45 Heparin SUB-Q 5,000 unit Q8HR WAYNE Administration Hydromorphone HCl 3 mg 09/26/18 16:12 10/01/18 14:44 Dilaudid IV 3 mg Q3H PRN Administration Pain, Moderate (4-6) Hydroxyurea 1,000 mg 09/27/18 11:30 10/01/18 09:43 Hydrea PO 1,000 mg QDAY WAYNE Administration Dextrose/Sodium Chloride 1,000 mls @ 175 mls/hr 09/27/18 01:30 10/01/18 13:13 D5ns 0.2% IV 175 mls/hr DIRECT WAYNE Administration Deferoxamine Mesylate 3,000 mg 250 mls @ 32 mls/hr 09/27/18 10:00 10/01/18 13:13 / Sodium Chloride IV 10/01/18 17:49 32 mls/hr Q24HR WAYNE Administration Ondansetron HCl 4 mg 09/26/18 16:14 09/26/18 19:29 Zofran IV 4 mg Q12H PRN Administration Nausea And Vomiting Oxycodone HCl 10 mg 09/27/18 14:00 10/01/18 14:44 Roxicodone PO 10 mg Q8HR WAYNE Administration
[2018-10-02] MEDS: DILAUDID IV PRN ×7 (00:06→18:10)
[2018-10-02] MEDS: BENADRYL IV PRN ×4 (00:08→18:16)
[2018-10-02] MEDS: D5NS 0.2% 1,000 ML IV SCH ×3 (01:23→13:02)
[2018-10-02] MEDS: ROXICODONE PO SCH ×2 (05:37→15:09)
[2018-10-02] MEDS: HEPARIN SUB-Q SCH ×2 (05:37→15:10)
[2018-10-02 07:30] LABS: Hematocrit 21.6 % (35.5-45.6); Hemoglobin 7.7 gm/dl (11.8-15.2); Mean Corpuscular HGB Conc 36 % (32-34); Mean Corpuscular Volume 91 fl (84-94); Red Blood Count 2.37 M/mm3 (3.65-5.03)
[2018-10-02 07:33] LABS: Platelet Count 191 K/mm3 (140-440); Red Cell Distribution Width 20.7 % (13.2-15.2)
[2018-10-02 07:42] LABS: BUN/Creatinine Ratio 33; Blood Urea Nitrogen 10 mg/dL (9-20); Calcium 8.6 mg/dL (8.4-10.2); Hemolysis Index 12
[2018-10-02 08:39] LABS: Band Neutrophils # (Manual) 0.1 K/mm3; Basophils % (Manual) 0 % (0.0-1.8); Total Cells Counted 100
[2018-10-02 08:40] LABS: Anisocytosis 2+; Hypochromasia 1+; Poikilocytosis 1+; Sickle Cells 1+; Target Cells Few
[2018-10-02] MEDS: HYDREA PO SCH (10:03)
[2018-10-02] MEDS: FOLVITE PO SCH (10:03)
[2018-10-02] MEDS: COREG PO SCH (10:04)
--- NOTE | 2018-10-02 16:51 | Discharge Summary ---
Providers - Providers Date of Admission: 09/26/18 16:06 Date of discharge: 10/02/18 Attending physician: DANIEL DE JESUS Primary care physician: DANIEL DE JESUS Hospitalization Reason for admission: SCD/pain crisis. Condition: Good Hospital course: Patient presented to the the office with cc of pain all over, consisted with crisis. patient was admitted directly to the hospital for sxsx management/control.His hgb was low, and was transfused with prbc.his iron was high, and required chelating.He is seen today, and examined, hgb lower, perhaps due delusional effect. No new issues, retic count, dropped nicely.patient will be d/c home today. Disposition: DC-01 TO HOME OR SELFCARE - Discharge Diagnoses (1) Dehydration Status: Resolved (2) Sickle cell pain crisis Status: Resolved (3) Anemia, sickle cell with crisis Status: Chronic (4) Iron overload due to repeated red blood cell transfusions Status: Chronic Core Measure Documentation - Palliative Care Palliative Care/ Comfort Measures: Not Applicable - Core Measures Any of the following diagnoses?: none Exam - Constitutional Vitals: Temp Pulse Resp BP Pulse Ox 98.1 F 64 18 129/68 97 10/02/18 05:22 10/02/18 10:04 10/02/18 05:22 10/02/18 10:05 10/02/18 05:22 General appearance: Present: no acute distress, well-nourished - EENT Eyes: Present: PERRL ENT: hearing intact, clear oral mucosa - Neck Neck: Present: supple, normal ROM - Respiratory Respiratory effort: normal Respiratory: bilateral: CTA - Cardiovascular Heart Sounds: Present: S1 & S2. Absent: rub, click - Extremities Extremities: pulses symmetrical, No edema Peripheral Pulses: within normal limits - Abdominal General gastrointestinal: Present: soft, non-tender, non-distended, normal bowel sounds Male genitourinary: Present: deferred - Rectal Rectal Exam: deferred - Integumentary Integumentary: Present: clear, warm, dry - Musculoskeletal Musculoskeletal: gait normal, strength equal bilaterally - Psychiatric Psychiatric: appropriate mood/affect, intact judgment & insight - Neurologic Neurologic: CNII-XII intact, moves all extremities Plan Activity: no restrictions Diet: diabetic Follow up with: DANIEL DE JESUS DO [Primary Care Provider] - 7 Days
[2018-10-02] MEDS ORDERED: FLUSH HEPARIN IV ONE (17:35)
[2018-10-02] MEDS ORDERED: TRIPLE ANTIBIOTIC TP ONE (17:36)
[2018-10-02 18:05] VITALS: BP 152/90
== END 2018-10-02 19:23 | disposition home or self-care (01) | DRG 812 ==
LOC: UNDOADMIN 14:54 → 3A 14:54
PROVIDERS: ADMIT Internal Medicine Hematology & Oncology; ATTEND Internal Medicine Hematology & Oncology
PROC: 30233N1 Transfusion of Nonautologous Red Blood Cells into Peripheral Vein, Percutaneous Approach (ICD-10-PCS; principal; 2018-09-27)
DX: D57.00 Hb-SS disease with crisis, unspecified (principal); E86.0 Dehydration; E83.111 Hemochromatosis due to repeated red blood cell transfusions; Z88.8 Allergy status to other drugs, medicaments and biological substances; Z88.1 Allergy status to other antibiotic agents
CPT/HCPCS: 36415; 80048; 80053; 82728; 82962; 83550; 83615; 85007; 85025; 85045; 85660; 86850; 86900; 86901; 86920; 94760; G0378; A6250; J0895; J1170; J1200; J1642; J1644; J2405; J7040; J7050; P9016

== ENCOUNTER 2018-11-21 13:59 | Inpatient (IN) | payer MEDICAID ==
[2018-11-21] MEDS ORDERED: SODIUM CHLORIDE FLUSH SYRINGE 10 ML IV PRN (14:11)
[2018-11-21 16:55] LABS: Mean Corpuscular HGB Conc 35 % (32-34); Mean Corpuscular Volume 103 fl (84-94); Platelet Count 299 K/mm3 (140-440); Red Blood Count 1.94 M/mm3 (3.65-5.03)
[2018-11-21 17:06] LABS: BUN/Creatinine Ratio 53; Blood Urea Nitrogen 16 mg/dL (9-20); Calcium 9.1 mg/dL (8.4-10.2); Hemolysis Index 26
[2018-11-21] MEDS: D5NS 0.2% 1,000 ML IV SCH ×2 (17:09→20:27)
[2018-11-21] MEDS: DILAUDID IV PRN ×2 (17:15→20:27)
[2018-11-21] MEDS: BENADRYL IV PRN (17:20)
[2018-11-21 17:25] LABS: Red Cell Distribution Width 30.3 % (13.2-15.2)
[2018-11-21 18:17] LABS: Total Cells Counted 100
[2018-11-21 18:18] LABS: Sickle Cells 2+
[2018-11-21 18:19] LABS: Anisocytosis 2+; Poikilocytosis 2+; Target Cells 1+
[2018-11-21 18:20] LABS: Giant Platelets Few; Hypochromasia 2+
[2018-11-21 18:21] LABS: Large Platelets Few; Platelet Estimate Consistent w Auto
--- NOTE | 2018-11-21 20:15 | History and Physical Report ---
History of Present Illness Date of examination: 11/21/18 Date of admission: 11/21/18 15:15 Chief complaint: Diffuse joint pain. History of present illness: Patient seen/examined, resting in bed, he had presented to the ED, with diffuse joint pain, and admitted for better sxs control, and management.Retic count high, and iron fairly high. Patient will get DSEF Tx. Past History Past Medical History: anemia Social history: lives with family Family history: no significant family history Medications and Allergies Allergies Allergy/AdvReac Type Severity Reaction Status Date / Time ceftriaxone sodium Allergy Unknown Verified 03/09/18 07:35 [From Rocephin] meperidine HCl [From Demerol] Allergy Unknown Verified 03/09/18 07:35 Home Medications Medication Instructions Recorded Confirmed Last Taken Type Folic Acid [Folvite] 1 mg PO QDAY #30 tablet 07/26/17 09/26/18 05/09/18 Rx Morphine ER [Ms Contin ER] 60 mg PO Q12H 03/09/18 09/26/18 05/09/18 History Oxycodone HCl [oxyCODONE TAB] 10 mg PO Q8H 03/09/18 09/26/18 05/09/18 History Carvedilol [Coreg] 25 mg PO BID 05/10/18 09/26/18 09/25/18 History Hydrea 1,000 mg PO DAILY 09/27/18 09/27/18 Unknown History Active Meds: Active Medications Carvedilol (Coreg) 25 mg PO DAILY WAYNE Diphenhydramine HCl (Benadryl) 25 mg IV Q6H PRN PRN Reason: Itching Last Admin: 11/21/18 17:20 Dose: 25 mg Documented by: Folic Acid (Folvite) 1 mg PO QDAY WAYNE Heparin Sodium (Porcine) (Heparin) 5,000 unit SUB-Q Q12HR WAYNE Hydromorphone HCl (Dilaudid) 2 mg IV Q3H PRN PRN Reason: Pain , Severe (7-10) Last Admin: 11/21/18 17:15 Dose: 2 mg Documented by: Hydroxyurea (Hydrea) 1,000 mg PO QDAY WAYNE Dextrose/Sodium Chloride (D5ns 0.2%) 1,000 mls @ 250 mls/hr IV DIRECT WAYNE Last Admin: 11/21/18 17:09 Dose: 250 mls/hr Documented by: Oxycodone HCl (Roxicodone) 10 mg PO Q6H PRN PRN Reason: BREAKTHRU PAIN Sodium Chloride (Sodium Chloride Flush Syringe 10 Ml) 10 ml IV BID WAYNE Sodium Chloride (Sodium Chloride Flush Syringe 10 Ml) 10 ml IV PRN PRN PRN Reason: LINE FLUSH Review of Systems Constitutional: chronic pain Exam - Constitutional Vitals: Temp Pulse Resp BP Pulse Ox 97.6 F 77 18 130/69 95 11/21/18 16:56 11/21/18 16:56 11/21/18 17:15 11/21/18 16:56 11/21/18 16:56 General appearance: Present: mild distress, well-nourished - EENT Eyes: Present: PERRL ENT: hearing intact, clear oral mucosa - Neck Neck: Present: supple, normal ROM - Respiratory Respiratory effort: normal Respiratory: bilateral: CTA - Cardiovascular Heart Sounds: Present: S1 & S2. Absent: rub, click - Extremities Extremities: pulses symmetrical, No edema Peripheral Pulses: within normal limits - Abdominal General gastrointestinal: Present: soft, non-tender, non-distended, normal bowel sounds Male genitourinary: Present: deferred - Rectal Rectal Exam: deferred - Integumentary Integumentary: Present: clear, warm, dry - Musculoskeletal Musculoskeletal: gait normal, strength equal bilaterally - Psychiatric Psychiatric: appropriate mood/affect, intact judgment & insight - Neurologic Neurologic: CNII-XII intact, moves all extremities Results - Labs CBC & Chem 7: 11/21/18 16:21 11/21/18 16:21 Labs: Abnormal lab results 11/21/18 11/21/18 11/21/18 Range/Units 16:21 16:21 16:21 WBC 15.4 H (4.5-11.0) K/mm3 RBC 1.94 L (3.65-5.03) M/mm3 Hgb 7.0 L (11.8-15.2) gm/dl Hct 20.0 L (35.5-45.6) % MCV 103 H (84-94) fl MCH 36 H (28-32) pg MCHC 35 H (32-34) % RDW 30.3 H (13.2-15.2) % Eosinophils % (Manual) 9.0 H (0.0-4.3) % Nucleated RBC % 9.0 H (0.0-0.9) % Seg Neutrophils # Man 9.9 H (1.8-7.7) K/mm3 Monocytes # (Manual) 1.1 H (0.0-0.8) K/mm3 Eosinophils # (Manual) 1.4 H (0.0-0.4) K/mm3 Basophils # (Manual) 0.2 H (0.0-0.1) K/mm3 Percent Retic 14.85 H (0.78-2.58) % Creatinine 0.3 L (0.8-1.5) mg/dL Iron (49-181) ug/dL Ferritin (13.0-400.0) ng/mL Lactate Dehydrogenase 822 H (91-180) units/L 11/21/18 11/21/18 Range/Units 16:21 16:21 WBC (4.5-11.0) K/mm3 RBC (3.65-5.03) M/mm3 Hgb (11.8-15.2) gm/dl Hct (35.5-45.6) % MCV (84-94) fl MCH (28-32) pg MCHC (32-34) % RDW (13.2-15.2) % Eosinophils % (Manual) (0.0-4.3) % Nucleated RBC % (0.0-0.9) % Seg Neutrophils # Man (1.8-7.7) K/mm3 Monocytes # (Manual) (0.0-0.8) K/mm3 Eosinophils # (Manual) (0.0-0.4) K/mm3 Basophils # (Manual) (0.0-0.1) K/mm3 Percent Retic (0.78-2.58) % Creatinine (0.8-1.5) mg/dL Iron 188 H (49-181) ug/dL Ferritin 7301.0 H (13.0-400.0) ng/mL Lactate Dehydrogenase (91-180) units/L Assessment and Plan - Patient Problems (1) Iron overload due to repeated red blood cell transfusions Current Visit: No Status: Acute Plan to address problem: Iron chelation. (2) Dehydration Current Visit: Yes Status: Acute Plan to address problem: Hydration. (3) Sickle cell anemia with crisis Current Visit: Yes Status: Acute Plan to address problem: Pain control, monitor labs, and replace , if needed.
[2018-11-21] MEDS: SODIUM CHLORIDE FLUSH SYRINGE 10 ML IV SCH (22:27)
[2018-11-21] MEDS: HEPARIN SUB-Q SCH (22:27)
[2018-11-21] MEDS: ROXICODONE PO PRN (22:47)
[2018-11-22] MEDS: DILAUDID IV PRN ×8 (00:16→22:57)
[2018-11-22] MEDS: BENADRYL IV PRN ×4 (00:17→20:02)
[2018-11-22] MEDS: D5NS 0.2% 1,000 ML IV SCH ×4 (00:18→22:57)
[2018-11-22] MEDS: COREG PO SCH (09:50)
[2018-11-22] MEDS: HEPARIN SUB-Q SCH ×2 (09:50→23:09)
[2018-11-22] MEDS: HYDREA PO SCH (09:50)
[2018-11-22] MEDS: FOLVITE PO SCH (09:51)
[2018-11-22] MEDS: SODIUM CHLORIDE FLUSH SYRINGE 10 ML IV SCH ×2 (09:55→22:00)
[2018-11-22] MEDS: Desferal 3,000 MG in NACL 0.9% 250ML 250 ML IV SCH (10:50)
--- NOTE | 2018-11-22 21:46 | Progress Note ---
Assessment and Plan - Patient Problems (1) Iron overload due to repeated red blood cell transfusions Current Visit: No Status: Acute Plan to address problem: Iron chelation. Continue same. (2) Dehydration Current Visit: Yes Status: Acute Plan to address problem: Hydration. (3) Sickle cell anemia with crisis Current Visit: Yes Status: Acute Plan to address problem: Pain control, monitor labs, and replace , if needed. Subjective Date of service: 11/22/18 Principal diagnosis: Sickle pain. Objective - Constitutional Vitals: Vital Signs - 12hr 11/22/18 11/22/18 11/22/18 09:51 10:00 12:31 Temperature 98.0 F Pulse Rate 65 Pulse Rate [ 68 Right Radial] Respiratory 20 20 16 Rate Blood Pressure 105/47 O2 Sat by Pulse 95 Oximetry 11/22/18 11/22/18 11/22/18 13:16 16:18 16:43 Temperature 98.3 F Pulse Rate 73 Pulse Rate [ Right Radial] Respiratory 20 20 16 Rate Blood Pressure 119/71 O2 Sat by Pulse 95 Oximetry General appearance: Present: mild distress, well-nourished - EENT Eyes: PERRL, EOM intact ENT: hearing intact, clear oral mucosa Ears: bilateral: normal - Neck Neck: supple, normal ROM - Respiratory Respiratory effort: normal Respiratory: bilateral: CTA - Breasts Breasts: deferred - Cardiovascular Rhythm: regular Heart Sounds: Present: S1 & S2. Absent: gallop, rub Extremities: pulses intact, No edema, normal color, Full ROM - Gastrointestinal General gastrointestinal: Present: soft, non-tender, non-distended, normal bowel sounds Rectal Exam: deferred - Genitourinary Male genitourinary: deferred - Integumentary Integumentary: clear, warm, dry - Musculoskeletal Musculoskeletal: 1, strength equal bilaterally - Neurologic Neurologic: moves all extremities - Psychiatric Psychiatric: memory intact, appropriate mood/affect, intact judgment & insight - Labs CBC & Chem 7: 11/21/18 16:21 11/21/18 16:21 Medications & Allergies - Medications Allergies/Adverse Reactions: Allergies ceftriaxone sodium [From Rocephin] Allergy (Verified 03/09/18 07:35) Unknown meperidine HCl [From Demerol] Allergy (Verified 03/09/18 07:35) Unknown Home Medications: Home Medications Medication Instructions Recorded Confirmed Last Taken Type Folic Acid [Folvite] 1 mg PO QDAY #30 tablet 07/26/17 09/26/18 05/09/18 Rx Morphine ER [Ms Contin ER] 60 mg PO Q12H 03/09/18 09/26/18 05/09/18 History Oxycodone HCl [oxyCODONE TAB] 10 mg PO Q8H 03/09/18 09/26/18 05/09/18 History Carvedilol [Coreg] 25 mg PO BID 05/10/18 09/26/18 09/25/18 History Hydrea 1,000 mg PO DAILY 09/27/18 09/27/18 Unknown History Active Medications: Generic Name Dose Route Start Last Admin Trade Name Freq PRN Reason Stop Dose Admin Carvedilol 25 mg 11/22/18 10:00 11/22/18 09:50 Coreg PO 25 mg DAILY WAYNE Administration Diphenhydramine HCl 25 mg 11/21/18 15:05 11/22/18 20:02 Benadryl IV 25 mg Q6H PRN Administration Itching Folic Acid 1 mg 11/22/18 10:00 11/22/18 09:51 Folvite PO 1 mg QDAY WAYNE Administration Heparin Sodium (Porcine) 5,000 unit 11/21/18 22:00 11/22/18 09:50 Heparin SUB-Q 5,000 unit Q12HR WAYNE Administration Hydromorphone HCl 2 mg 11/21/18 14:11 11/22/18 20:03 Dilaudid IV 2 mg Q3H PRN Administration Pain , Severe (7-10) Hydroxyurea 1,000 mg 11/22/18 10:00 11/22/18 09:50 Hydrea PO 1,000 mg QDAY WAYNE Administration Dextrose/Sodium Chloride 1,000 mls @ 250 mls/hr 11/21/18 16:00 11/22/18 07:32 D5ns 0.2% IV 250 mls/hr DIRECT WAYNE Administration Deferoxamine Mesylate 3,000 mg 250 mls @ 32 mls/hr 11/22/18 10:00 11/22/18 10:50 / Sodium Chloride IV 11/25/18 17:49 32 mls/hr Q24H WAYNE Administration Oxycodone HCl 10 mg 11/21/18 15:06 11/21/18 22:47 Roxicodone PO 10 mg Q6H PRN Administration BREAKTHRU PAIN Sodium Chloride 10 ml 11/21/18 22:00 11/22/18 09:55 Sodium Chloride Flush Syringe 10 Ml IV 10 ml BID WAYNE Administration Sodium Chloride 10 ml 11/21/18 14:11 11/22/18 20:05 Sodium Chloride Flush Syringe 10 Ml IV 10 ml PRN PRN Administration LINE FLUSH
[2018-11-23] MEDS: BENADRYL IV PRN ×4 (02:22→21:35)
[2018-11-23] MEDS: DILAUDID IV PRN ×7 (02:23→21:35)
[2018-11-23] MEDS: D5NS 0.2% 1,000 ML IV SCH ×3 (03:25→15:08)
[2018-11-23] MEDS: HEPARIN SUB-Q SCH ×2 (09:34→21:35)
[2018-11-23] MEDS: FOLVITE PO SCH (09:34)
[2018-11-23] MEDS: HYDREA PO SCH (09:34)
[2018-11-23] MEDS: SODIUM CHLORIDE FLUSH SYRINGE 10 ML IV SCH (09:40)
[2018-11-23] MEDS: COREG PO SCH (10:00)
[2018-11-23] MEDS: Desferal 3,000 MG in NACL 0.9% 250ML 250 ML IV SCH (10:45)
[2018-11-23 11:51] LABS: Hemoglobin 6.4 gm/dl (11.8-15.2); Mean Corpuscular HGB Conc 36 % (32-34); Mean Corpuscular Volume 102 fl (84-94); Platelet Count 194 K/mm3 (140-440); Red Blood Count 1.76 M/mm3 (3.65-5.03)
[2018-11-23 12:05] LABS: Hematocrit 17.9 % (35.5-45.6); Red Cell Distribution Width 28.2 % (13.2-15.2)
[2018-11-23 12:06] LABS: BUN/Creatinine Ratio 20; Blood Urea Nitrogen 8 mg/dL (9-20); Calcium 8.4 mg/dL (8.4-10.2); Hemolysis Index 12
[2018-11-23] MEDS ORDERED: NACL 0.9% 500 ML 500 ML IV NR (13:13)
[2018-11-23 17:34] LABS: Band Neutrophils # (Manual) 0.2 K/mm3; Basophils % (Manual) 0 % (0.0-1.8); Total Cells Counted 100
[2018-11-23 17:35] LABS: Anisocytosis 2+; Macrocytosis 1+
[2018-11-23 17:36] LABS: Sickle Cells 1+; Target Cells 1+
[2018-11-23 17:39] LABS: Platelet Estimate Consistent w Auto
[2018-11-24] MEDS: SODIUM CHLORIDE FLUSH SYRINGE 10 ML IV SCH ×3 (00:22→23:09)
[2018-11-24] MEDS: D5NS 0.2% 1,000 ML IV SCH (00:49)
[2018-11-24] MEDS: DILAUDID IV PRN ×8 (00:50→23:01)
[2018-11-24] MEDS ORDERED: NACL 0.9% 500 ML 500 ML ONE (03:02)
[2018-11-24] MEDS: BENADRYL IV PRN ×4 (03:55→23:01)
[2018-11-24] MEDS: ROXICODONE PO PRN (08:43)
[2018-11-24] MEDS: HYDREA PO SCH (09:32)
[2018-11-24] MEDS: FOLVITE PO SCH (09:32)
[2018-11-24] MEDS: COREG PO SCH (09:32)
[2018-11-24] MEDS: HEPARIN SUB-Q SCH ×2 (09:34→23:02)
--- NOTE | 2018-11-24 09:37 | Progress Note ---
Assessment and Plan - Patient Problems (1) Iron overload due to repeated red blood cell transfusions Current Visit: No Status: Acute Plan to address problem: Iron chelation. Continue same. (2) Dehydration Current Visit: Yes Status: Acute Plan to address problem: Hydration. (3) Sickle cell anemia with crisis Current Visit: Yes Status: Acute Plan to address problem: Pain control, monitor labs, and replace , if needed. Subjective Date of service: 11/24/18 Principal diagnosis: Sickle pain. Interval history: Patient seen/ examined, resting in bed ok, VSS, afebrile.Hgb dropped, and transfusion ordered. He will continue Desf.for another 2-3 days. Objective - Constitutional Vitals: Vital Signs - 12hr 11/23/18 11/24/18 11/24/18 22:32 03:25 03:39 Temperature 98.7 F 98.2 F 98.1 F Pulse Rate 77 72 69 Respiratory 18 20 20 Rate Blood Pressure 122/72 124/67 128/69 O2 Sat by Pulse 93 94 95 Oximetry 11/24/18 11/24/18 11/24/18 03:40 04:40 05:10 Temperature 98.4 F 98.3 F 98.0 F Pulse Rate 73 71 68 Respiratory 20 20 20 Rate Blood Pressure 128/74 121/74 109/48 O2 Sat by Pulse 95 94 96 Oximetry 11/24/18 11/24/18 11/24/18 05:35 08:20 08:35 Temperature 98.4 F 97.7 F 98.6 F Pulse Rate 65 75 71 Respiratory 18 20 18 Rate Blood Pressure 112/70 112/69 129/70 O2 Sat by Pulse 94 96 96 Oximetry 11/24/18 11/24/18 09:05 09:32 Temperature 98.1 F Pulse Rate 71 Respiratory 18 Rate Blood Pressure 131/79 131/79 O2 Sat by Pulse 96 Oximetry General appearance: Present: no acute distress, well-nourished - EENT Eyes: PERRL, EOM intact ENT: hearing intact, clear oral mucosa Ears: bilateral: normal - Neck Neck: supple, normal ROM - Respiratory Respiratory effort: normal Respiratory: bilateral: CTA - Breasts Breasts: deferred - Cardiovascular Rhythm: regular Heart Sounds: Present: S1 & S2. Absent: gallop, rub Extremities: pulses intact, No edema, normal color, Full ROM - Gastrointestinal General gastrointestinal: Present: soft, non-tender, non-distended, normal bowel sounds Rectal Exam: deferred - Genitourinary Male genitourinary: deferred - Integumentary Integumentary: clear, warm, dry - Musculoskeletal Musculoskeletal: 1, strength equal bilaterally - Neurologic Neurologic: moves all extremities - Psychiatric Psychiatric: memory intact, appropriate mood/affect, intact judgment & insight - Labs CBC & Chem 7: 11/23/18 11:35 11/23/18 11:35 Labs: Abnormal lab results 11/23/18 11/23/18 11/23/18 Range/Units 11:35 11:35 18:43 WBC 12.4 H (4.5-11.0) K/mm3 RBC 1.76 L (3.65-5.03) M/mm3 Hgb 6.4 L (11.8-15.2) gm/dl Hct 17.9 L* (35.5-45.6) % MCV 102 H (84-94) fl MCH 36 H (28-32) pg MCHC 36 H (32-34) % RDW 28.2 H (13.2-15.2) % Seg Neuts % (Manual) 36.0 L (40.0-70.0) % Monocytes % (Manual) 17.0 H (0.0-7.3) % Eosinophils % (Manual) 12.0 H (0.0-4.3) % Nucleated RBC % 4.0 H (0.0-0.9) % Monocytes # (Manual) 2.1 H (0.0-0.8) K/mm3 Eosinophils # (Manual) 1.5 H (0.0-0.4) K/mm3 Percent Retic 15.12 H (0.78-2.58) % Sodium 136 L (137-145) mmol/L BUN 8 L (9-20) mg/dL Creatinine 0.4 L (0.8-1.5) mg/dL Crossmatch See Detail Medications & Allergies - Medications Allergies/Adverse Reactions: Allergies ceftriaxone sodium [From Rocephin] Allergy (Verified 03/09/18 07:35) Unknown meperidine HCl [From Demerol] Allergy (Verified 03/09/18 07:35) Unknown Home Medications: Home Medications Medication Instructions Recorded Confirmed Last Taken Type Folic Acid [Folvite] 1 mg PO QDAY #30 tablet 07/26/17 09/26/18 05/09/18 Rx Morphine ER [Ms Contin ER] 60 mg PO Q12H 03/09/18 09/26/18 05/09/18 History Oxycodone HCl [oxyCODONE TAB] 10 mg PO Q8H 03/09/18 09/26/18 05/09/18 History Carvedilol [Coreg] 25 mg PO BID 05/10/18 09/26/18 09/25/18 History Hydrea 1,000 mg PO DAILY 09/27/18 09/27/18 Unknown History Active Medications: Generic Name Dose Route Start Last Admin Trade Name Freq PRN Reason Stop Dose Admin Carvedilol 25 mg 11/22/18 10:00 11/24/18 09:32 Coreg PO 25 mg DAILY WAYNE Administration Diphenhydramine HCl 25 mg 11/21/18 15:05 11/24/18 03:55 Benadryl IV 25 mg Q6H PRN Administration Itching Folic Acid 1 mg 11/22/18 10:00 11/24/18 09:32 Folvite PO 1 mg QDAY WAYNE Administration Heparin Sodium (Porcine) 5,000 unit 11/21/18 22:00 11/23/18 21:35 Heparin SUB-Q 5,000 unit Q12HR WAYNE Administration Hydromorphone HCl 2 mg 11/21/18 14:11 11/24/18 07:06 Dilaudid IV 2 mg Q3H PRN Administration Pain , Severe (7-10) Hydroxyurea 1,000 mg 11/22/18 10:00 11/24/18 09:32 Hydrea PO 1,000 mg QDAY WAYNE Administration Dextrose/Sodium Chloride 1,000 mls @ 250 mls/hr 11/21/18 16:00 11/24/18 00:49 D5ns 0.2% IV 250 mls/hr DIRECT WAYNE Administration Deferoxamine Mesylate 3,000 mg 250 mls @ 32 mls/hr 11/22/18 10:00 11/23/18 10:45 / Sodium Chloride IV 11/25/18 17:49 32 mls/hr Q24H WAYNE Administration Oxycodone HCl 10 mg 11/21/18 15:06 11/24/18 08:43 Roxicodone PO 10 mg Q6H PRN Administration BREAKTHRU PAIN Sodium Chloride 10 ml 11/21/18 22:00 11/24/18 00:22 Sodium Chloride Flush Syringe 10 Ml IV 10 ml BID WAYNE Administration Sodium Chloride 10 ml 11/21/18 14:11 11/22/18 20:05 Sodium Chloride Flush Syringe 10 Ml IV 10 ml PRN PRN Administration LINE FLUSH
[2018-11-24] MEDS: Desferal 3,000 MG in NACL 0.9% 250ML 250 ML IV SCH (12:41)
[2018-11-24 15:55] LABS: Hematocrit 24.4 % (35.5-45.6); Hemoglobin 8.8 gm/dl (11.8-15.2)
[2018-11-25] MEDS: DILAUDID IV PRN ×7 (03:05→21:35)
[2018-11-25] MEDS: BENADRYL IV PRN ×3 (06:15→18:38)
[2018-11-25] MEDS: FOLVITE PO SCH (09:13)
[2018-11-25] MEDS: HYDREA PO SCH (09:13)
[2018-11-25] MEDS: HEPARIN SUB-Q SCH ×2 (09:13→21:37)
[2018-11-25] MEDS: SODIUM CHLORIDE FLUSH SYRINGE 10 ML IV SCH ×2 (09:14→21:38)
[2018-11-25] MEDS: COREG PO SCH (09:16)
[2018-11-25] MEDS: Desferal 3,000 MG in NACL 0.9% 250ML 250 ML IV SCH (09:48)
[2018-11-25] MEDS: D5NS 0.2% 1,000 ML IV SCH ×2 (17:43→21:37)
[2018-11-26] MEDS: DILAUDID IV PRN ×9 (00:40→21:54)
[2018-11-26] MEDS: BENADRYL IV PRN ×4 (00:40→18:49)
[2018-11-26] MEDS: D5NS 0.2% 1,000 ML IV SCH ×6 (00:49→22:35)
--- NOTE | 2018-11-26 03:23 | Progress Note ---
Assessment and Plan - Patient Problems (1) Iron overload due to repeated red blood cell transfusions Current Visit: No Status: Acute Plan to address problem: Iron chelation. Continue same. (2) Dehydration Current Visit: Yes Status: Acute Plan to address problem: Hydration. (3) Sickle cell anemia with crisis Current Visit: Yes Status: Acute Plan to address problem: Pain control, monitor labs, and replace , if needed. Subjective Date of service: 11/25/18 Principal diagnosis: Sickle pain. Interval history: Patient seen/ examined, resting in bed ok, VSS, afebrile.Hgb dropped, and transfusion ordered. He will continue Desf.for another 2-3 days. Patient resting in bed, labs improved, post transfusion, will d/c home in the next 24hrs. Objective - Constitutional Vitals: Vital Signs - 12hr 11/25/18 11/25/18 11/25/18 17:15 17:19 20:00 Temperature 98.7 F 98.5 F Respiratory 19 20 20 Rate Respiratory Rate [ Generalized] Blood Pressure 130/79 148/84 11/25/18 11/25/18 11/25/18 21:35 22:00 22:05 Temperature Respiratory 18 18 Rate Respiratory 18 Rate [ Generalized] Blood Pressure 11/26/18 11/26/18 00:40 01:10 Temperature Respiratory 18 18 Rate Respiratory Rate [ Generalized] Blood Pressure General appearance: Present: no acute distress, well-nourished - EENT Eyes: PERRL, EOM intact ENT: hearing intact, clear oral mucosa Ears: bilateral: normal - Neck Neck: supple, normal ROM - Respiratory Respiratory effort: normal Respiratory: bilateral: CTA - Breasts Breasts: deferred - Cardiovascular Rhythm: regular Heart Sounds: Present: S1 & S2. Absent: gallop, rub Extremities: pulses intact, No edema, normal color, Full ROM - Gastrointestinal General gastrointestinal: Present: soft, non-tender, non-distended, normal bowel sounds - Genitourinary Male genitourinary: deferred - Integumentary Integumentary: clear, warm, dry - Musculoskeletal Musculoskeletal: 1, strength equal bilaterally - Neurologic Neurologic: moves all extremities - Psychiatric Psychiatric: memory intact, appropriate mood/affect, intact judgment & insight - Labs CBC & Chem 7: 11/24/18 15:33 11/23/18 11:35 Medications & Allergies - Medications Allergies/Adverse Reactions: Allergies ceftriaxone sodium [From Rocephin] Allergy (Verified 03/09/18 07:35) Unknown meperidine HCl [From Demerol] Allergy (Verified 03/09/18 07:35) Unknown Home Medications: Home Medications Medication Instructions Recorded Confirmed Last Taken Type Folic Acid [Folvite] 1 mg PO QDAY #30 tablet 07/26/17 09/26/18 05/09/18 Rx Morphine ER [Ms Contin ER] 60 mg PO Q12H 03/09/18 09/26/18 05/09/18 History Oxycodone HCl [oxyCODONE] 10 mg PO Q8H 03/09/18 09/26/18 05/09/18 History Carvedilol [Coreg] 25 mg PO BID 05/10/18 09/26/18 09/25/18 History Hydrea 1,000 mg PO DAILY 09/27/18 09/27/18 Unknown History Active Medications: Generic Name Dose Route Start Last Admin Trade Name Freq PRN Reason Stop Dose Admin Carvedilol 25 mg 11/22/18 10:00 11/25/18 09:16 Coreg PO 25 mg DAILY WAYNE Administration Diphenhydramine HCl 25 mg 11/21/18 15:05 11/26/18 00:40 Benadryl IV 25 mg Q6H PRN Administration Itching Folic Acid 1 mg 11/22/18 10:00 11/25/18 09:13 Folvite PO 1 mg QDAY WAYNE Administration Heparin Sodium (Porcine) 5,000 unit 11/21/18 22:00 11/25/18 21:37 Heparin SUB-Q 5,000 unit Q12HR WAYNE Administration Hydromorphone HCl 2 mg 11/21/18 14:11 11/26/18 00:40 Dilaudid IV 2 mg Q3H PRN Administration Pain , Severe (7-10) Hydroxyurea 1,000 mg 11/22/18 10:00 11/25/18 09:13 Hydrea PO 1,000 mg QDAY WAYNE Administration Dextrose/Sodium Chloride 1,000 mls @ 250 mls/hr 11/21/18 16:00 11/26/18 00:49 D5ns 0.2% IV 250 mls/hr DIRECT WAYNE Administration Oxycodone HCl 10 mg 11/21/18 15:06 11/24/18 08:43 Roxicodone PO 10 mg Q6H PRN Administration BREAKTHRU PAIN Sodium Chloride 10 ml 11/21/18 22:00 11/25/18 21:38 Sodium Chloride Flush Syringe 10 Ml IV 10 ml BID WAYNE Administration Sodium Chloride 10 ml 11/21/18 14:11 11/22/18 20:05 Sodium Chloride Flush Syringe 10 Ml IV 10 ml PRN PRN Administration LINE FLUSH
[2018-11-26] MEDS: HYDREA PO SCH (09:52)
[2018-11-26] MEDS: FOLVITE PO SCH (09:52)
[2018-11-26] MEDS: COREG PO SCH (09:52)
[2018-11-26] MEDS: HEPARIN SUB-Q SCH ×2 (12:18→21:52)
[2018-11-26] MEDS: SODIUM CHLORIDE FLUSH SYRINGE 10 ML IV SCH ×2 (12:18→21:52)
--- NOTE | 2018-11-27 00:28 | Progress Note ---
Assessment and Plan - Patient Problems (1) Iron overload due to repeated red blood cell transfusions Current Visit: No Status: Acute Plan to address problem: Iron chelation. Continue same. (2) Dehydration Current Visit: Yes Status: Acute Plan to address problem: Hydration. (3) Sickle cell anemia with crisis Current Visit: Yes Status: Acute Plan to address problem: Pain control, monitor labs, and replace , if needed. Subjective Date of service: 11/27/18 Principal diagnosis: Sickle pain. Interval history: Patient seen/ examined, resting in bed ok, VSS, afebrile.Hgb dropped, and transfusion ordered. He will continue Desf.for another 2-3 days. Patient resting in bed, labs improved, post transfusion, will d/c home in the next 24hrs. Patient seen/examined, resting in bed, no new labs. He claims his pain is finally much better controlled, and will be ready for d/c tomorrow. his only concern, is his left shoulder. I will get xry, to r/o AVN. Objective - Constitutional Vitals: Vital Signs - 12hr 11/26/18 16:44 Temperature 98.6 F Pulse Rate 71 Respiratory 20 Rate Blood Pressure 124/83 O2 Sat by Pulse 95 Oximetry General appearance: Present: mild distress, well-nourished - EENT Eyes: PERRL, EOM intact ENT: hearing intact, clear oral mucosa Ears: bilateral: normal - Neck Neck: supple, normal ROM - Respiratory Respiratory effort: normal Respiratory: bilateral: CTA - Breasts Breasts: deferred - Cardiovascular Rhythm: regular Heart Sounds: Present: S1 & S2. Absent: gallop, rub Extremities: pulses intact, No edema, normal color, Full ROM - Gastrointestinal General gastrointestinal: Present: soft, non-tender, non-distended, normal bowel sounds Rectal Exam: deferred - Genitourinary Male genitourinary: deferred - Integumentary Integumentary: clear, warm, dry - Musculoskeletal Musculoskeletal: 1, strength equal bilaterally - Neurologic Neurologic: moves all extremities - Psychiatric Psychiatric: memory intact, appropriate mood/affect, intact judgment & insight - Labs CBC & Chem 7: 11/24/18 15:33 11/23/18 11:35 Medications & Allergies - Medications Allergies/Adverse Reactions: Allergies ceftriaxone sodium [From Rocephin] Allergy (Verified 03/09/18 07:35) Unknown meperidine HCl [From Demerol] Allergy (Verified 03/09/18 07:35) Unknown Home Medications: Home Medications Medication Instructions Recorded Confirmed Last Taken Type Folic Acid [Folvite] 1 mg PO QDAY #30 tablet 07/26/17 09/26/18 05/09/18 Rx Morphine ER [Ms Contin ER] 60 mg PO Q12H 03/09/18 09/26/18 05/09/18 History Oxycodone HCl [oxyCODONE] 10 mg PO Q8H 03/09/18 09/26/18 05/09/18 History Carvedilol [Coreg] 25 mg PO BID 05/10/18 09/26/18 09/25/18 History Hydrea 1,000 mg PO DAILY 09/27/18 09/27/18 Unknown History Active Medications: Generic Name Dose Route Start Last Admin Trade Name Freq PRN Reason Stop Dose Admin Carvedilol 25 mg 11/22/18 10:00 11/26/18 09:52 Coreg PO 25 mg DAILY WAYNE Administration Diphenhydramine HCl 25 mg 11/21/18 15:05 11/26/18 18:49 Benadryl IV 25 mg Q6H PRN Administration Itching Folic Acid 1 mg 11/22/18 10:00 11/26/18 09:52 Folvite PO 1 mg QDAY WAYNE Administration Heparin Sodium (Porcine) 5,000 unit 11/21/18 22:00 11/26/18 21:52 Heparin SUB-Q 5,000 unit Q12HR WAYNE Administration Hydromorphone HCl 2 mg 11/21/18 14:11 11/26/18 21:54 Dilaudid IV 2 mg Q3H PRN Administration Pain , Severe (7-10) Hydroxyurea 1,000 mg 11/22/18 10:00 11/26/18 09:52 Hydrea PO 1,000 mg QDAY WAYNE Administration Dextrose/Sodium Chloride 1,000 mls @ 250 mls/hr 11/21/18 16:00 11/26/18 18:34 D5ns 0.2% IV 250 mls/hr DIRECT WAYNE Administration Oxycodone HCl 10 mg 11/21/18 15:06 11/24/18 08:43 Roxicodone PO 10 mg Q6H PRN Administration BREAKTHRU PAIN Sodium Chloride 10 ml 11/21/18 22:00 11/26/18 21:52 Sodium Chloride Flush Syringe 10 Ml IV 10 ml BID WAYNE Administration Sodium Chloride 10 ml 11/21/18 14:11 11/22/18 20:05 Sodium Chloride Flush Syringe 10 Ml IV 10 ml PRN PRN Administration LINE FLUSH
[2018-11-27] MEDS: BENADRYL IV PRN ×4 (00:55→19:25)
[2018-11-27] MEDS: DILAUDID IV PRN ×8 (00:56→22:40)
[2018-11-27] MEDS: D5NS 0.2% 1,000 ML IV SCH ×7 (02:35→23:52)
[2018-11-27] MEDS: COREG PO SCH (09:18)
[2018-11-27] MEDS: FOLVITE PO SCH (09:18)
[2018-11-27] MEDS: SODIUM CHLORIDE FLUSH SYRINGE 10 ML IV SCH ×2 (09:18→22:33)
[2018-11-27] MEDS: HEPARIN SUB-Q SCH ×2 (09:18→22:29)
[2018-11-27] MEDS: HYDREA PO SCH (09:18)
--- NOTE | 2018-11-27 12:47 | XRay Report ---
PROCEDURE: XR SHOULDER 2+V LT TECHNIQUE: Left shoulder radiographs, 3 views. HISTORY: Persistent pain. COMPARISONS: None currently available. FINDINGS: There is no acute fracture. There is no evidence for healing fracture. There is no acute dislocation. No significant arthrosis. There is no cortical destruction to suggest osteomyelitis. There are no suspicious osseous lesions. There are no radiopaque foreign objects. IMPRESSION: * No acute osseous findings. This document is electronically signed by Pradip Wilkerson MD., November 27 2018 12:45:33 PM ET
[2018-11-27 17:41] VITALS: BP 130/85
--- NOTE | 2018-11-27 21:08 | Discharge Summary ---
Providers - Providers Date of Admission: 11/21/18 15:15 Date of discharge: 11/27/18 Attending physician: DANIEL DE JESUS Primary care physician: DANIEL DE JESUS Hospitalization Reason for admission: SDC/anemia/pain crisis. Condition: Good Hospital course: Patient presented to the office with diffuse joint pain, and admitted for sxs management/control. He was transfused with PRBC, and also had Desferol infusion, for chronic iron overload.Patient then started complaining of left shoulder pain, xray did not reveal any pathology anyhow.He was also well hydrated. He is seen today, examined, pain stabilized. He states have no ride. I will proceed with D/c pending his ride availability. Disposition: - TO HOME OR SELFCARE - Discharge Diagnoses (1) Iron overload due to repeated red blood cell transfusions Status: Chronic (2) Dehydration Status: Chronic (3) Sickle cell anemia with crisis Status: Chronic Core Measure Documentation - Palliative Care Palliative Care/ Comfort Measures: Not Applicable - Core Measures Any of the following diagnoses?: none Exam - Constitutional Vitals: Temp Pulse Resp BP Pulse Ox 98.7 F 73 20 130/85 97 11/27/18 17:03 11/27/18 17:03 11/27/18 17:03 11/27/18 17:03 11/27/18 17:03 General appearance: Present: no acute distress, well-nourished - EENT Eyes: Present: PERRL ENT: hearing intact, clear oral mucosa - Neck Neck: Present: supple, normal ROM - Respiratory Respiratory effort: normal Respiratory: bilateral: CTA - Cardiovascular Heart Sounds: Present: S1 & S2. Absent: rub, click - Extremities Extremities: pulses symmetrical, No edema Peripheral Pulses: within normal limits - Abdominal General gastrointestinal: Present: soft, non-tender, non-distended, normal bowel sounds Male genitourinary: Present: deferred - Rectal Rectal Exam: deferred - Integumentary Integumentary: Present: clear, warm, dry - Musculoskeletal Musculoskeletal: gait normal, strength equal bilaterally - Psychiatric Psychiatric: appropriate mood/affect, intact judgment & insight - Neurologic Neurologic: CNII-XII intact, moves all extremities Plan Activity: no restrictions Diet: regular (d/c home once ride available.) Follow up with: DANIEL DE JESUS DO [Primary Care Provider] - 7 Days
== END 2018-11-27 23:30 | disposition home or self-care (01) | DRG 812 ==
LOC: UNDOADMIN 13:59 → 3A 13:59
PROVIDERS: ADMIT Internal Medicine Hematology & Oncology; ATTEND Internal Medicine Hematology & Oncology
PROC: 30233N1 Transfusion of Nonautologous Red Blood Cells into Peripheral Vein, Percutaneous Approach (ICD-10-PCS; principal; 2018-11-24)
DX: D57.00 Hb-SS disease with crisis, unspecified (principal); E83.111 Hemochromatosis due to repeated red blood cell transfusions; G89.29 Other chronic pain; E86.0 Dehydration; Z79.899 Other long term (current) drug therapy
CPT/HCPCS: 36415; 80048; 82728; 83540; 83615; 85007; 85018; 85025; 85045; 85660; 86850; 86900; 86901; 86920; 87116; G0378; J0895; J1170; J1200; J1644; J7040; J7050; P9016

== ENCOUNTER 2019-05-05 17:54 | Inpatient (IN) | payer MEDICAID ==
--- NOTE | 2019-05-05 18:31 | Event Note ---
ED Screening Note ED Screening Note: pt states that his "hemoglobin was 6.2, retic was 18 at [facility] on May 03" states that "he left the acute care center at [facility] and came here instead" pt has a port pt states he is aching last time transfused was end of march This initial assessment/diagnostic orders/clinical plan/treatment(s) is/are riley bject to change based on patients health status, clinical progression and re- assessment by fellow clinical providers in the ED. Further treatment and workup at subsequent clinical providers discretion. Patient/guardian urged not to elope from the ED as their condition may be serious if not clinically assessed and managed. Initial orders include: labs
[2019-05-05 19:07] LABS: Hemoglobin 7.3 gm/dl (11.8-15.2); Mean Corpuscular HGB Conc 35 % (32-34); Mean Corpuscular Volume 93 fl (84-94); Platelet Count 313 K/mm3 (140-440); Red Blood Count 2.27 M/mm3 (3.65-5.03)
[2019-05-05 19:09] LABS: Red Cell Distribution Width 26.2 % (13.2-15.2)
[2019-05-05 19:48] LABS: Alanine Aminotransferase 84 units/L (7-56); Albumin 4.3 g/dL (3.9-5); BUN/Creatinine Ratio 37; Blood Urea Nitrogen 11 mg/dL (9-20); Calcium 8.9 mg/dL (8.4-10.2); Hemolysis Index 61
[2019-05-05 22:12] LABS: Total Cells Counted 100
[2019-05-05] MEDS ORDERED: ZOFRAN IV ONE (22:12)
[2019-05-05] MEDS ORDERED: NACL 0.9% 1000 ML 1,000 ML IV ONE ×2 (22:12)
[2019-05-05] MEDS ORDERED: TORADOL IV ONE (22:12)
[2019-05-05] MEDS ORDERED: BENADRYL IV ONE (22:12)
[2019-05-05] MEDS ORDERED: DILAUDID IV ONE (22:12)
[2019-05-05 22:14] LABS: Hypochromasia Few; Sickle Cells 1+; Target Cells 1+
[2019-05-05 22:15] LABS: Platelet Estimate Consistent w Auto
--- NOTE | 2019-05-05 22:51 | Emergency Department Report ---
ED General Adult HPI - General Chief complaint: Sickle Cell Crisis Stated complaint: SICKLE CELL PAIN/CHEST PAIN Time Seen by Provider: 05/05/19 18:28 Source: patient Mode of arrival: Ambulatory Limitations: No Limitations - History of Present Illness Initial comments: Patient is a 33-year-old -[place] male with past medical history of sickle cell disease who is complaining of bilateral knee thigh and back pain. Patient is compliant with his medications. Patient states he was seen at [facility] last week with a hemoglobin of 6.2. Patient denies fevers chills cough cold congestion nausea vomiting at this time. Patient states pain is not out of 10 in severity and is worse when he moves better when he rests. Patient believes that the heat may be contributed factor. Severity scale (0 -10): 7 - Related Data Home Medications Medication Instructions Recorded Confirmed Last Taken Morphine ER [Ms Contin ER] 60 mg PO Q12H 03/09/18 11/27/18 05/09/18 Oxycodone HCl [oxyCODONE] 10 mg PO Q8H 03/09/18 11/27/18 05/09/18 Carvedilol [Coreg] 25 mg PO BID 05/10/18 11/27/18 09/25/18 Hydrea 1,000 mg PO DAILY 09/27/18 11/27/18 Unknown Previous Rx's Medication Instructions Recorded Last Taken Type Folic Acid [Folvite] 1 mg PO QDAY #30 tablet 07/26/17 05/09/18 Rx Allergies Allergy/AdvReac Type Severity Reaction Status Date / Time ceftriaxone sodium Allergy Unknown Verified 03/09/18 07:35 [From Rocephin] meperidine HCl [From Demerol] Allergy Unknown Verified 03/09/18 07:35 ED Review of Systems ROS: Stated complaint: SICKLE CELL PAIN/CHEST PAIN Other details as noted in HPI Comment: All other systems reviewed and negative ED Past Medical Hx - Past Medical History Hx Hypertension: Yes Hx Heart Attack/AMI: No Hx Congestive Heart Failure: No Hx Diabetes: No Hx Deep Vein Thrombosis: No Hx Sickle Cell Disease: Yes Hx Asthma: No Hx COPD: No Hx HIV: No Additional medical history: low ef - Surgical History Hx Coronary Stent: No Hx Pacemaker: No Hx Internal Defibrillator: No Hx Cholecystectomy: Yes Additional Surgical History: spleen removed, hernia repair, PIC LINE IN THE LEFT CHEST. Port to right chest - Social History Smoking Status: Never Smoker Substance Use Type: None - Medications Home Medications: Home Medications Medication Instructions Recorded Confirmed Last Taken Type Folic Acid [Folvite] 1 mg PO QDAY #30 tablet 07/26/17 11/27/18 05/09/18 Rx Morphine ER [Ms Contin ER] 60 mg PO Q12H 03/09/18 11/27/18 05/09/18 History Oxycodone HCl [oxyCODONE] 10 mg PO Q8H 03/09/18 11/27/18 05/09/18 History Carvedilol [Coreg] 25 mg PO BID 05/10/18 11/27/18 09/25/18 History Hydrea 1,000 mg PO DAILY 09/27/18 11/27/18 Unknown History ED Physical Exam - General Limitations: No Limitations General appearance: alert, in no apparent distress - Head Head exam: Present: atraumatic, normocephalic - Eye Eye exam: Present: normal appearance - ENT ENT exam: Present: mucous membranes moist - Neck Neck exam: Present: normal inspection - Respiratory Respiratory exam: Present: normal lung sounds bilaterally. Absent: respiratory distress, wheezes, rales, rhonchi - Cardiovascular Cardiovascular Exam: Present: regular rate, normal rhythm, normal heart sounds. Absent: systolic murmur, diastolic murmur, rubs, gallop - GI/Abdominal GI/Abdominal exam: Present: soft, normal bowel sounds. Absent: distended, tenderness, guarding, rebound - Rectal Rectal exam: Present: deferred - Extremities Exam Extremities exam: Present: normal inspection - Back Exam Back exam: Present: normal inspection - Neurological Exam Neurological exam: Present: alert, oriented X3 - Psychiatric Psychiatric exam: Present: normal affect, normal mood - Skin Skin exam: Present: warm, dry, intact, normal color. Absent: rash ED Course Vital Signs 05/05/19 05/05/19 18:29 22:03 Temperature 99.1 F Pulse Rate 89 85 Respiratory 16 19 Rate Blood Pressure 110/65 Blood Pressure 132/84 [Left] O2 Sat by Pulse 96 98 Oximetry ED Medical Decision Making - Lab Data Result diagrams: 05/05/19 18:39 05/05/19 18:39 Lab Results 05/05/19 05/05/19 Range/Units 18:39 18:39 WBC 18.3 H (4.5-11.0) K/mm3 RBC 2.27 L (3.65-5.03) M/mm3 Hgb 7.3 L (11.8-15.2) gm/dl Hct 21.0 L (35.5-45.6) % MCV 93 (84-94) fl MCH 32 (28-32) pg MCHC 35 H (32-34) % RDW 26.2 H (13.2-15.2) % Plt Count 313 (140-440) K/mm3 Add Manual Diff Complete Total Counted 100 Seg Neuts % (Manual) 77.0 H (40.0-70.0) % Band Neutrophils % 0 % Lymphocytes % (Manual) 11.0 L (13.4-35.0) % Reactive Lymphs % (Man) 0 % Monocytes % (Manual) 9.0 H (0.0-7.3) % Eosinophils % (Manual) 1.0 (0.0-4.3) % Basophils % (Manual) 2.0 H (0.0-1.8) % Metamyelocytes % 0 % Myelocytes % 0 % Promyelocytes % 0 % Blast Cells % 0 % Nucleated RBC % Not Reportable Seg Neutrophils # Man 14.1 H (1.8-7.7) K/mm3 Band Neutrophils # 0.0 K/mm3 Lymphocytes # (Manual) 2.0 (1.2-5.4) K/mm3 Abs React Lymphs (Man) 0.0 K/mm3 Monocytes # (Manual) 1.6 H (0.0-0.8) K/mm3 Eosinophils # (Manual) 0.2 (0.0-0.4) K/mm3 Basophils # (Manual) 0.4 H (0.0-0.1) K/mm3 Metamyelocytes # 0.0 K/mm3 Myelocytes # 0.0 K/mm3 Promyelocytes # 0.0 K/mm3 Blast Cells # 0.0 K/mm3 WBC Morphology Not Reportable Hypersegmented Neuts Not Reportable Hyposegmented Neuts Not Reportable Hypogranular Neuts Not Reportable Smudge Cells Not Reportable Toxic Granulation Not Reportable Toxic Vacuolation Not Reportable Dohle Bodies Not Reportable Pelger-Huet Anomaly Not Reportable Christian Rods Not Reportable Platelet Estimate Consistent w auto Clumped Platelets Not Reportable Plt Clumps, EDTA Not Reportable Large Platelets Not Reportable Giant Platelets Not Reportable Platelet Satelliting Not Reportable Plt Morphology Comment Not Reportable RBC Morphology Not Reportable Dimorphic RBCs Not Reportable Polychromasia 1+ Hypochromasia Few Poikilocytosis Not Reportable Anisocytosis Not Reportable Microcytosis Not Reportable Macrocytosis Not Reportable Spherocytes Not Reportable Pappenheimer Bodies Not Reportable Sickle Cells 1+ Target Cells 1+ Tear Drop Cells Not Reportable Ovalocytes Not Reportable Helmet Cells Not Reportable Grant-[place] Bodies Not Reportable [place] Rings Not Reportable [place] Cells Not Reportable Bite Cells Not Reportable Crenated Cell Not Reportable Elliptocytes Not Reportable Acanthocytes (Spur) Not Reportable Rouleaux Not Reportable Hemoglobin C Crystals Not Reportable Schistocytes Not Reportable Malaria parasites Not Reportable Percent Retic 17.82 H (0.78-2.58) % You Bodies Not Reportable Hem Pathologist Commnt No Sodium 141 (137-145) mmol/L Potassium 4.0 (3.6-5.0) mmol/L Chloride 103.0 (98-107) mmol/L Carbon Dioxide 19 L (22-30) mmol/L Anion Gap 23 mmol/L BUN 11 (9-20) mg/dL Creatinine 0.3 L (0.8-1.5) mg/dL Estimated GFR > 60 ml/min BUN/Creatinine Ratio 37 % Glucose 78 (75-100) mg/dL Calcium 8.9 (8.4-10.2) mg/dL Total Bilirubin 5.60 H (0.1-1.2) mg/dL AST 154 H (5-40) units/L ALT 84 H (7-56) units/L Alkaline Phosphatase 159 H (35-129) units/L Lactate Dehydrogenase 650 H (91-180) units/L Total Protein 7.5 (6.3-8.2) g/dL Albumin 4.3 (3.9-5) g/dL Albumin/Globulin Ratio 1.3 % - Medical Decision Making He is a 33-year-old male with a history of sickle cell who is c omplaining of bilateral hip knee and lower back pain. Patient received several doses of pain meds as well as IV fluids and patient states his pain went from a 10 to a 9 and a physical he is not a state where he can go home. Patient will be admitted to the hospitalist service at this time. Patient is a patient of Dr. Abebe however he is out of town. He and Dr Lucero Has Agreed to Have the Patient Admitted to the Hospitalist Service Critical care attestation.: If time is entered above; I have spent that time in minutes in the direct care of this critically ill patient, excluding procedure time. ED Disposition Clinical Impression: Sickle cell pain crisis Disposition: 09 OP ADMIT IP TO THIS HOSP Is pt being admited?: Yes Does the pt Need Aspirin: No Condition: Stable Time of Disposition: 02:05
[2019-05-06] MEDS ORDERED: DILAUDID IV ONE (00:18)
[2019-05-06] MEDS ORDERED: DULCOLAX PR PRN (02:47)
[2019-05-06] MEDS ORDERED: MILK OF MAGNESIA PO PRN (02:47)
[2019-05-06] MEDS ORDERED: ZOFRAN IV PRN (02:47)
[2019-05-06] MEDS ORDERED: MORPHINE PO PRN (02:47)
[2019-05-06] MEDS ORDERED: NACL 0.9% 500 ML 500 ML IV ONE (02:50)
--- NOTE | 2019-05-06 02:53 | History and Physical Report ---
History of Present Illness Date of examination: 05/06/19 History of present illness: 33-year-old man , she of , with a history of sickle cell comes emergency room with complains of pain in his hips, knees, lower back. He was seen at [facility] on Wednesday. Same and treated for sickle cell crisis and discharged home. Hemoglobin at that time was 6.2 but he was not transfused. He state that is symptoms return, pain is throbbing, constant, intensity8/10, and high exacerbating factor. He denies any nausea vomiting, fever or chills eview Of Systems: Constitutional: no weight loss, fever, chills Ears, eyes, nose, mouth and throat: no nasal congestion, no nasal discharge, no sinus pressure, blurry vision, diplopia Neck: No neck pain or rigidity. Cardiovascular: No palpitations, chest pain Respiratory: No shortness of breath, cough Gastrointestinal: No hematochezia, abdominal pain Genitourinary : no dysuria, frequency , hematuria Musculoskeletal: no muscle ache , joint pain Integumentary: no rash, no pruritis Neurological: no parathesias, focal weakness Endocrine: no cold or heat intolerance, no polyuria or polydipsia Hematologic/Lymphatic: no easy bruising, no easy bleeding, no gland swelling Allergic/Immunologic: no urticaria, no angioedema. PAST MEDICAL HISTORY: sickle cell PAST SURGICAL HISTORY: Cholecystectomy, hernia repair, splenectomy FAMILY HISTORY:hypertension, diabetes SOCIAL HISTORY: Denies tobacco, drugs, alcohol Medications and Allergies Allergies Allergy/AdvReac Type Severity Reaction Status Date / Time ceftriaxone sodium Allergy Unknown Verified 03/09/18 07:35 [From Rocephin] meperidine HCl [From Demerol] Allergy Unknown Verified 03/09/18 07:35 Home Medications Medication Instructions Recorded Confirmed Last Taken Type Folic Acid [Folvite] 1 mg PO QDAY #30 tablet 07/26/17 05/06/19 05/09/18 Rx Morphine ER [Ms Contin ER] 60 mg PO Q12H 03/09/18 05/06/19 05/09/18 History Oxycodone HCl [oxyCODONE] 10 mg PO Q8H 03/09/18 05/06/19 05/09/18 History Carvedilol [Coreg] 25 mg PO BID 10/04/1905/06/19 09/25/18 History Hydrea 1,000 mg PO DAILY 09/27/18 05/06/19 Unknown History Active Meds: Active Medications Bisacodyl (Dulcolax) 10 mg CA QDAY PRN PRN Reason: Constipation unrelieved by MOM Folic Acid (Folvite) 1 mg PO QDAY [facility] Dextrose/Sodium Chloride (D5/0.45ns) 1,000 mls @ 75 mls/hr IV DIRECT [facility] Stop: 05/06/19 16:19 Sodium Chloride (Nacl 0.9% 500 Ml) 500 mls @ 0 mls/hr IV ONCE ONE Stop: 05/06/19 02:51 Magnesium Hydroxide (Milk Of Magnesia) 30 ml PO Q4H PRN PRN Reason: Constipation Morphine Sulfate (Ms Contin Er) 30 mg PO Q8HR [facility] Morphine Sulfate (Morphine) 15 mg PO Q4H PRN PRN Reason: Pain, Moderate (4-6) Morphine Sulfate (Morphine) 4 mg IV Q2H PRN PRN Reason: Pain , Severe (7-10) Stop: 05/07/19 02:46 Multivitamins (Theragran Tab) 1 each PO QDAY [facility] Ondansetron HCl (Zofran) 4 mg IV Q4H PRN PRN Reason: Nausea And Vomiting Oxycodone HCl (Oxycontin) 20 mg PO Q8HR [facility] Senna (Senokot) 17.2 mg PO QHS [facility] Exam - Physical Exam Narrative exam: General Apperance: The patient sitting in bed no acute distress HEENT: Normocephalic, atraumatic. Pupils equally round and reactive to light, extraocular movement intact, and no sclericterus or JVD or thyromegaly or nod ule. Neck supple, no carotid bruit, mucous membranes moist, no exudate or erythema Heart: S1-S2, regular is rhythm Lungs: Clear to auscultation bilaterally, breathing comfortable Abdomen: Positive bowel sounds, soft, nontender, nondistended, no organomegaly Extremities: No edema cyanosis clubbing Skin: no rash, nodule, warm and dry Neuro:CN 2 -12 intact, motor/sensory intact, speech is fluent - Constitutional Vitals: Temp Pulse Resp BP Pulse Ox 99.1 F 85 19 132/84 98 05/05/19 18:29 05/05/19 22:03 05/05/19 22:03 05/05/19 22:03 05/05/19 22:03 Results - Labs CBC & Chem 7: 05/06/19 04:12 05/06/19 04:12 Labs: Abnormal lab results 05/05/19 05/05/19 Range/Units 18:39 18:39 WBC 18.3 H (4.5-11.0) K/mm3 RBC 2.27 L (3.65-5.03) M/mm3 Hgb 7.3 L (11.8-15.2) gm/dl Hct 21.0 L (35.5-45.6) % MCHC 35 H (32-34) % RDW 26.2 H (13.2-15.2) % Seg Neuts % (Manual) 77.0 H (40.0-70.0) % Lymphocytes % (Manual) 11.0 L (13.4-35.0) % Monocytes % (Manual) 9.0 H (0.0-7.3) % Basophils % (Manual) 2.0 H (0.0-1.8) % Seg Neutrophils # Man 14.1 H (1.8-7.7) K/mm3 Monocytes # (Manual) 1.6 H (0.0-0.8) K/mm3 Basophils # (Manual) 0.4 H (0.0-0.1) K/mm3 Percent Retic 17.82 H (0.78-2.58) % Carbon Dioxide 19 L (22-30) mmol/L Creatinine 0.3 L (0.8-1.5) mg/dL Total Bilirubin 5.60 H (0.1-1.2) mg/dL AST 154 H (5-40) units/L ALT 84 H (7-56) units/L Alkaline Phosphatase 159 H (35-129) units/L Lactate Dehydrogenase 650 H (91-180) units/L Assessment and Plan Assessment Sickle cell crisis SIRS Anemia pLan Admit to medicine IV fluid, long-acting and short-acting narcotics Checks his back rectal cells Obtain blood culture, chest x-ray, urinalysis Start IV Levaquin pending cultures DVT prophylaxis
[2019-05-06] MEDS ORDERED: D5/0.45NS 1,000 ML IV SCH (03:00)
[2019-05-06] MEDS ORDERED: LEVAQUIN 750MG/150ML 750 MG/150 ML BAG IV ONE (03:56)
[2019-05-06] MEDS: LEVAQUIN 750MG/150ML 750 MG/150 ML BAG IV SCH ×2 (04:06→10:05)
--- NOTE | 2019-05-06 04:44 | XRay Report ---
CHEST 1 VIEW INDICATION / CLINICAL INFORMATION: LEUKOCYTOSIS. COMPARISON: Chest radiograph 05/13/2018 FINDINGS: SUPPORT DEVICES: Right IJ Mediport with tip terminating in the proximal right atrium. HEART / MEDIASTINUM: The cardiac silhouette is slightly prominent but accentuated by AP technique. LUNGS / PLEURA: Scattered patchy pulmonary opacities in the lower lobes. No pleural effusion. No pneu mothorax. ADDITIONAL FINDINGS: No significant additional findings. IMPRESSION: 1. Scattered patchy pulmonary opacities in the lower lobes. In the setting of leukocytosis, this rais es concern for atypical or multifocal pneumonia. Signer Name: Zulay Steiner MD Signed: 05/06/2019 4:40 AM Workstation Name: [id number]
[2019-05-06 05:03] LABS: BUN/Creatinine Ratio 40; Blood Urea Nitrogen 12 mg/dL (9-20); Calcium 7.8 mg/dL (8.4-10.2); Hemolysis Index 3
[2019-05-06 05:05] LABS: Mean Corpuscular HGB Conc 36 % (32-34); Mean Corpuscular Volume 91 fl (84-94); Platelet Count 249 K/mm3 (140-440); Red Blood Count 1.74 M/mm3 (3.65-5.03)
[2019-05-06 05:15] LABS: Hematocrit 15.8 % (35.5-45.6); Hemoglobin 5.6 gm/dl (11.8-15.2); Red Cell Distribution Width 26.4 % (13.2-15.2)
[2019-05-06] MEDS: MORPHINE IV PRN ×4 (05:43→13:45)
[2019-05-06] MEDS: BENADRYL IV PRN ×4 (05:44→23:07)
[2019-05-06] MEDS ORDERED: OxyCONTIN PO SCH (06:00)
[2019-05-06] MEDS ORDERED: AZACTAM/NS 1 GM/50 ML 1 GM/50 ML VIAL IV SCH (06:44)
[2019-05-06] MEDS ORDERED: NACL 0.9% 500 ML 500 ML IV NR (07:05)
--- NOTE | 2019-05-06 07:09 | Progress Note ---
Assessment and Plan Assessment and plan: --Severe Anemia>: --Sickle cell crisis --SIRS History Interval history: Patient seen and examined Medical records reviewed Admited with sicklecell crisis and severe anemia c/o gen body pains vital signs noted Hospitalist Physical - Constitutional Vitals: Temp Pulse Resp BP Pulse Ox 98.1 F 75 18 117/77 96 05/06/19 04:55 05/06/19 04:55 05/06/19 04:55 05/06/19 04:55 05/06/19 04:55 General appearance: Present: mild distress - EENT Eyes: Present: PERRL. Absent: EOM intact - Neck Neck: Present: supple, normal ROM Results - Labs CBC & Chem 7: 05/06/19 19:15 05/06/19 04:12 Labs: Laboratory Last Values WBC 17.6 K/mm3 (4.5-11.0) H 05/06/19 04:12 RBC 1.74 M/mm3 (3.65-5.03) L 05/06/19 04:12 Hgb 5.6 gm/dl (11.8-15.2) L* 05/06/19 04:12 Hct 15.8 % (35.5-45.6) L* 05/06/19 04:12 MCV 91 fl (84-94) 05/06/19 04:12 MCH 32 pg (28-32) 05/06/19 04:12 MCHC 36 % (32-34) H 05/06/19 04:12 RDW 26.4 % (13.2-15.2) H 05/06/19 04:12 Plt Count 249 K/mm3 (140-440) 05/06/19 04:12 Add Manual Diff Complete 05/05/19 18:39 Total Counted 100 05/05/19 18:39 Seg Neuts % (Manual) 77.0 % (40.0-70.0) H 05/05/19 18:39 Band Neutrophils % 0 % 05/05/19 18:39 Lymphocytes % (Manual) 11.0 % (13.4-35.0) L 05/05/19 18:39 Reactive Lymphs % (Man) 0 % 05/05/19 18:39 Monocytes % (Manual) 9.0 % (0.0-7.3) H 05/05/19 18:39 Eosinophils % (Manual) 1.0 % (0.0-4.3) 05/05/19 18:39 Basophils % (Manual) 2.0 % (0.0-1.8) H 05/05/19 18:39 Metamyelocytes % 0 % 05/05/19 18:39 Myelocytes % 0 % 05/05/19 18:39 Promyelocytes % 0 % 05/05/19 18:39 Blast Cells % 0 % 05/05/19 18:39 Nucleated RBC % Not Reportable 05/05/19 18:39 Seg Neutrophils # Man 14.1 K/mm3 (1.8-7.7) H 05/05/19 18:39 Band Neutrophils # 0.0 K/mm3 05/05/19 18:39 Lymphocytes # (Manual) 2.0 K/mm3 (1.2-5.4) 05/05/19 18:39 Abs React Lymphs (Man) 0.0 K/mm3 05/05/19 18:39 Monocytes # (Manual) 1.6 K/mm3 (0.0-0.8) H 05/05/19 18:39 Eosinophils # (Manual) 0.2 K/mm3 (0.0-0.4) 05/05/19 18:39 Basophils # (Manual) 0.4 K/mm3 (0.0-0.1) H 05/05/19 18:39 Metamyelocytes # 0.0 K/mm3 05/05/19 18:39 Myelocytes # 0.0 K/mm3 05/05/19 18:39 Promyelocytes # 0.0 K/mm3 05/05/19 18:39 Blast Cells # 0.0 K/mm3 05/05/19 18:39 WBC Morphology Not Reportable 05/05/19 18:39 Hypersegmented Neuts Not Reportable 05/05/19 18:39 Hyposegmented Neuts Not Reportable 05/05/19 18:39 Hypogranular Neuts Not Reportable 05/05/19 18:39 Smudge Cells Not Reportable 05/05/19 18:39 Toxic Granulation Not Reportable 05/05/19 18:39 Toxic Vacuolation Not Reportable 05/05/19 18:39 Dohle Bodies Not Reportable 05/05/19 18:39 Pelger-Huet Anomaly Not Reportable 05/05/19 18:39 Christian Rods Not Reportable 05/05/19 18:39 Platelet Estimate Consistent w auto 05/05/19 18:39 Clumped Platelets Not Reportable 05/05/19 18:39 Plt Clumps, EDTA Not Reportable 05/05/19 18:39 Large Platelets Not Reportable 05/05/19 18:39 Giant Platelets Not Reportable 05/05/19 18:39 Platelet Satelliting Not Reportable 05/05/19 18:39 Plt Morphology Comment Not Reportable 05/05/19 18:39 RBC Morphology Not Reportable 05/05/19 18:39 Dimorphic RBCs Not Reportable 05/05/19 18:39 Polychromasia 1+ 05/05/19 18:39 Hypochromasia Few 05/05/19 18:39 Poikilocytosis Not Reportable 05/05/19 18:39 Anisocytosis Not Reportable 05/05/19 18:39 Microcytosis Not Reportable 05/05/19 18:39 Macrocytosis Not Reportable 05/05/19 18:39 Spherocytes Not Reportable 05/05/19 18:39 Pappenheimer Bodies Not Reportable 05/05/19 18:39 Sickle Cells 1+ 05/05/19 18:39 Target Cells 1+ 05/05/19 18:39 Tear Drop Cells Not Reportable 05/05/19 18:39 Ovalocytes Not Reportable 05/05/19 18:39 Helmet Cells Not Reportable 05/05/19 18:39 Grant-[place]ody Bodies Not Reportable 05/05/19 18:39 [place] Rings Not Reportable 05/05/19 18:39 Nolberto Cells Not Reportable 05/05/19 18:39 Bite Cells Not Reportable 05/05/19 18:39 Crenated Cell Not Reportable 05/05/19 18:39 Elliptocytes Not Reportable 05/05/19 18:39 Acanthocytes (Spur) Not Reportable 05/05/19 18:39 Rouleaux Not Reportable 05/05/19 18:39 Hemoglobin C Crystals Not Reportable 05/05/19 18:39 Schistocytes Not Reportable 05/05/19 18:39 Malaria parasites Not Reportable 05/05/19 18:39 Percent Retic 18.61 % (0.78-2.58) H 05/06/19 04:12 You Bodies Not Reportable 05/05/19 18:39 Hem Pathologist Commnt No 05/05/19 18:39 Sodium 136 mmol/L (137-145) L 05/06/19 04:12 Potassium 3.6 mmol/L (3.6-5.0) 05/06/19 04:12 Chloride 104.1 mmol/L (98-107) 05/06/19 04:12 Carbon Dioxide 21 mmol/L (22-30) L 05/06/19 04:12 Anion Gap 15 mmol/L 05/06/19 04:12 BUN 12 mg/dL (9-20) 05/06/19 04:12 Creatinine 0.3 mg/dL (0.8-1.5) L 05/06/19 04:12 Estimated GFR > 60 ml/min 05/06/19 04:12 BUN/Creatinine Ratio 40 % 05/06/19 04:12 Glucose 99 mg/dL (75-100) 05/06/19 04:12 Calcium 7.8 mg/dL (8.4-10.2) L 05/06/19 04:12 Total Bilirubin 5.60 mg/dL (0.1-1.2) H 05/05/19 18:39 AST 154 units/L (5-40) H 05/05/19 18:39 ALT 84 units/L (7-56) H 05/05/19 18:39 Alkaline Phosphatase 159 units/L (35-129) H 05/05/19 18:39 Lactate Dehydrogenase 468 units/L (91-180) H 05/06/19 04:12 Total Protein 7.5 g/dL (6.3-8.2) 05/05/19 18:39 Albumin 4.3 g/dL (3.9-5) 05/05/19 18:39 Albumin/Globulin Ratio 1.3 % 05/05/19 18:39 Blood Type O POSITIVE 05/06/19 04:47 Antibody Screen Negative 05/06/19 04:47 Crossmatch See Detail 05/06/19 04:47 Active Medications - Current Medications Current Medications: Generic Name Dose Route Start Last Admin Trade Name Freq PRN Reason Stop Dose Admin Bisacodyl 10 mg 05/06/19 02:47 Dulcolax DC QDAY PRN Constipation unrelieved by MOM Carvedilol 25 mg 05/06/19 10:00 Coreg PO BID [facility] Diphenhydramine HCl 25 mg 05/06/19 05:07 05/06/19 05:44 Benadryl IV 25 mg Q6H PRN Administration Itching Folic Acid 1 mg 05/06/19 10:00 Folvite PO QDAY [facility] Hydroxyurea 1,000 mg 05/06/19 10:00 Hydrea PO DAILY [facility] Dextrose/Sodium Chloride 1,000 mls @ 75 mls/hr 05/06/19 03:00 05/06/19 05:45 D5/0.45ns IV 05/06/19 16:19 75 mls/hr DIRECT [facility] Administration Levofloxacin/Dextrose 750 mg in 150 mls @ 100 mls/hr 05/06/19 03:13 05/06/19 04:06 Levaquin 750mg/150ml IV 100 mls/hr Q24HR [facility] Administration Protocol Aztreonam 1 gm in 50 mls @ 50 mls/hr 05/06/19 06:59 Azactam/Ns 1 Gm/50 Ml IV Q8HR [facility] Protocol Sodium Chloride 500 mls @ 0 mls/hr 05/06/19 07:05 Nacl 0.9% 500 Ml IV 05/06/19 07:06 ONCE ONE As Directed Magnesium Hydroxide 30 ml 05/06/19 02:47 Milk Of Magnesia PO Q4H PRN Constipation Morphine Sulfate 30 mg 05/06/19 06:00 Ms Contin Er PO Q8HR [facility] Morphine Sulfate 15 mg 05/06/19 02:47 Morphine PO Q4H PRN Pain, Moderate (4-6) Morphine Sulfate 4 mg 05/06/19 02:47 05/06/19 05:43 Morphine IV 05/07/19 02:46 4 mg Q2H PRN Administration Pain , Severe (7-10) Multivitamins 1 each 05/06/19 10:00 Theragran Tab PO QDAY [facility] Ondansetron HCl 4 mg 05/06/19 02:47 Zofran IV Q4H PRN Nausea And Vomiting Senna 17.2 mg 05/06/19 22:00 Senokot PO QHS [facility]
[2019-05-06] MEDS: MS CONTIN ER PO SCH ×3 (07:25→21:25)
[2019-05-06 07:33] LABS: Basophils % (Manual) 0 % (0.0-1.8); Total Cells Counted 100
[2019-05-06 07:34] LABS: Anisocytosis 1+; Hypochromasia 1+; Platelet Estimate Consistent w Auto; Sickle Cells 1+
[2019-05-06] MEDS: AZACTAM/NS 1 GM/50 ML 1 GM/50 ML VIAL IV SCH ×3 (08:00→21:21)
[2019-05-06 08:04] LABS: Albumin 3.3 g/dL (3.9-5); Bilirubin,Direct 1.3 mg/dL (0-0.2)
[2019-05-06] MEDS: FOLVITE PO SCH (09:16)
[2019-05-06] MEDS: THERAGRAN Tab PO SCH (09:16)
[2019-05-06] MEDS: HYDREA PO SCH (09:24)
[2019-05-06 09:54] LABS: Bilirubin,Urine NEG (Negative); Blood,Urine SM (Negative); Color,Urine Yellow (Yellow); Protein,Urine <15 mg/dL mg/dL (Negative); WBC,Urine < 1.0 /HPF (0.0-6.0)
[2019-05-06] MEDS: COREG PO SCH ×3 (10:00→21:27)
[2019-05-06] MEDS ORDERED: FOLVITE PO SCH (10:00)
[2019-05-06] MEDS: DILAUDID IV PRN ×3 (17:08→23:06)
[2019-05-06] MEDS: D5NS 0.2% 1,000 ML IV SCH (17:09)
[2019-05-06 19:44] LABS: Hematocrit 21.5 % (35.5-45.6); Hemoglobin 7.3 gm/dl (11.8-15.2)
[2019-05-06] MEDS: SENOKOT PO SCH (21:22)
[2019-05-06] MEDS ORDERED: NACL 0.9% 500 ML 500 ML ONE (22:50)
--- NOTE | 2019-05-07 00:07 | Progress Note ---
Assessment and Plan Assessment and plan: --Sickle cell crisis; O2,IV fluids,pain medications hematology consult -- Severe sickle cell anemia: 2 units PRBC transfusion Monitor H /H and Transfuse additional as needed --SIRS:Leukocytosis: Emperic antibiotics,f/u cultures --DVT prophylaxis: SCD Plan of care d/w patient and his nurse History Interval history: patient seen and examined Medical records reviewed c/o gen body pains Vital signs reviewed Hospitalist Physical - Constitutional Vitals: Temp Pulse Resp BP Pulse Ox 98.2 F 74 18 137/90 100 05/06/19 23:16 05/06/19 23:16 05/06/19 23:16 05/06/19 23:16 05/06/19 23:16 General appearance: Present: mild distress, cachectic, disheveled - EENT Eyes: Present: PERRL, EOM intact - Neck Neck: Present: supple, normal ROM - Respiratory Respiratory effort: normal Respiratory: bilateral: diminished, negative: rales, rhonchi, wheezing - Cardiovascular Rhythm: regular Heart Sounds: Present: S1 & S2 - Extremities Extremities: no ischemia, No edema - Abdominal General gastrointestinal: soft, non-tender, non-distended, normal bowel sounds - Integumentary Integumentary: Present: clear, warm - Psychiatric Psychiatric: appropriate mood/affect, cooperative - Neurologic Neurologic: CNII-XII intact, moves all extremities Results - Labs CBC & Chem 7: 05/06/19 19:15 05/06/19 04:12 Labs: Laboratory Last Values WBC 17.6 K/mm3 (4.5-11.0) H 05/06/19 04:12 RBC 1.74 M/mm3 (3.65-5.03) L 05/06/19 04:12 Hgb 7.3 gm/dl (11.8-15.2) L 05/06/19 19:15 Hct 21.5 % (35.5-45.6) L 05/06/19 19:15 MCV 91 fl (84-94) 05/06/19 04:12 MCH 32 pg (28-32) 05/06/19 04:12 MCHC 36 % (32-34) H 05/06/19 04:12 RDW 26.4 % (13.2-15.2) H 05/06/19 04:12 Plt Count 249 K/mm3 (140-440) 05/06/19 04:12 Add Manual Diff Complete 05/06/19 04:12 Total Counted 100 05/06/19 04:12 Seg Neuts % (Manual) 66.0 % (40.0-70.0) 05/06/19 04:12 Band Neutrophils % 0 % 05/06/19 04:12 Lymphocytes % (Manual) 23.0 % (13.4-35.0) 05/06/19 04:12 Reactive Lymphs % (Man) 0 % 05/06/19 04:12 Monocytes % (Manual) 9.0 % (0.0-7.3) H 05/06/19 04:12 Eosinophils % (Manual) 2.0 % (0.0-4.3) 05/06/19 04:12 Basophils % (Manual) 0 % (0.0-1.8) 05/06/19 04:12 Metamyelocytes % 0 % 05/06/19 04:12 Myelocytes % 0 % 05/06/19 04:12 Promyelocytes % 0 % 05/06/19 04:12 Blast Cells % 0 % 05/06/19 04:12 Nucleated RBC % 1.0 % (0.0-0.9) H 05/06/19 04:12 Seg Neutrophils # Man 11.6 K/mm3 (1.8-7.7) H 05/06/19 04:12 Band Neutrophils # 0.0 K/mm3 05/06/19 04:12 Lymphocytes # (Manual) 4.0 K/mm3 (1.2-5.4) 05/06/19 04:12 Abs React Lymphs (Man) 0.0 K/mm3 05/06/19 04:12 Monocytes # (Manual) 1.6 K/mm3 (0.0-0.8) H 05/06/19 04:12 Eosinophils # (Manual) 0.4 K/mm3 (0.0-0.4) 05/06/19 04:12 Basophils # (Manual) 0.0 K/mm3 (0.0-0.1) 05/06/19 04:12 Metamyelocytes # 0.0 K/mm3 05/06/19 04:12 Myelocytes # 0.0 K/mm3 05/06/19 04:12 Promyelocytes # 0.0 K/mm3 05/06/19 04:12 Blast Cells # 0.0 K/mm3 05/06/19 04:12 WBC Morphology Not Reportable 05/06/19 04:12 Hypersegmented Neuts Not Reportable 05/06/19 04:12 Hyposegmented Neuts Not Reportable 05/06/19 04:12 Hypogranular Neuts Not Reportable 05/06/19 04:12 Smudge Cells Not Reportable 05/06/19 04:12 Toxic Granulation Not Reportable 05/06/19 04:12 Toxic Vacuolation Not Reportable 05/06/19 04:12 Dohle Bodies Not Reportable 05/06/19 04:12 Pelger-Huet Anomaly Not Reportable 05/06/19 04:12 Christian Rods Not Reportable 05/06/19 04:12 Platelet Estimate Consistent w auto 05/06/19 04:12 Clumped Platelets Not Reportable 05/06/19 04:12 Plt Clumps, EDTA Not Reportable 05/06/19 04:12 Large Platelets Not Reportable 05/06/19 04:12 Giant Platelets Not Reportable 05/06/19 04:12 Platelet Satelliting Not Reportable 05/06/19 04:12 Plt Morphology Comment Not Reportable 05/06/19 04:12 RBC Morphology Not Reportable 05/06/19 04:12 Dimorphic RBCs Not Reportable 05/06/19 04:12 Polychromasia Not Reportable 05/06/19 04:12 Hypochromasia 1+ 05/06/19 04:12 Poikilocytosis Not Reportable 05/06/19 04:12 Anisocytosis 1+ 05/06/19 04:12 Microcytosis Few 05/06/19 04:12 Macrocytosis Not Reportable 05/06/19 04:12 Spherocytes Not Reportable 05/06/19 04:12 Pappenheimer Bodies Not Reportable 05/06/19 04:12 Sickle Cells 1+ 05/06/19 04:12 Target Cells Not Reportable 05/06/19 04:12 Tear Drop Cells Not Reportable 05/06/19 04:12 Ovalocytes Not Reportable 05/06/19 04:12 Helmet Cells Not Reportable 05/06/19 04:12 [place] Bodies Not Reportable 05/06/19 04:12 [place] Rings Not Reportable 05/06/19 04:12 [place] Cells Not Reportable 05/06/19 04:12 Bite Cells Not Reportable 05/06/19 04:12 Crenated Cell Not Reportable 05/06/19 04:12 Elliptocytes Not Reportable 05/06/19 04:12 Acanthocytes (Spur) Not Reportable 05/06/19 04:12 Rouleaux Not Reportable 05/06/19 04:12 Hemoglobin C Crystals Not Reportable 05/06/19 04:12 Schistocytes Not Reportable 05/06/19 04:12 Malaria parasites Not Reportable 05/06/19 04:12 Percent Retic 18.61 % (0.78-2.58) H 05/06/19 04:12 You Bodies Not Reportable 05/06/19 04:12 Hem Pathologist Commnt No 05/06/19 04:12 Sodium 136 mmol/L (137-145) L 05/06/19 04:12 Potassium 3.6 mmol/L (3.6-5.0) 05/06/19 04:12 Chloride 104.1 mmol/L (98-107) 05/06/19 04:12 Carbon Dioxide 21 mmol/L (22-30) L 05/06/19 04:12 Anion Gap 15 mmol/L 05/06/19 04:12 BUN 12 mg/dL (9-20) 05/06/19 04:12 Creatinine 0.3 mg/dL (0.8-1.5) L 05/06/19 04:12 Estimated GFR > 60 ml/min 05/06/19 04:12 BUN/Creatinine Ratio 40 % 05/06/19 04:12 Glucose 99 mg/dL (75-100) 05/06/19 04:12 Calcium 7.8 mg/dL (8.4-10.2) L 05/06/19 04:12 Total Bilirubin 4.40 mg/dL (0.1-1.2) H 05/06/19 04:12 Direct Bilirubin 1.3 mg/dL (0-0.2) H 05/06/19 04:12 Indirect Bilirubin 3.1 mg/dL 05/06/19 04:12 AST 126 units/L (5-40) H 05/06/19 04:12 ALT 70 units/L (7-56) H 05/06/19 04:12 Alkaline Phosphatase 138 units/L (35-129) H 05/06/19 04:12 Lactate Dehydrogenase 468 units/L (91-180) H 05/06/19 04:12 Total Protein 6.3 g/dL (6.3-8.2) 05/06/19 04:12 Albumin 3.3 g/dL (3.9-5) L 05/06/19 04:12 Albumin/Globulin Ratio 1.1 % 05/06/19 04:12 Urine Color Yellow (Yellow) 05/06/19 09:17 Urine Turbidity Clear (Clear) 05/06/19 09:17 Urine pH 6.0 (5.0-7.0) 05/06/19 09:17 Ur Specific [place] 1.006 (1.003-1.030) 05/06/19 09:17 Urine Protein <15 mg/dl mg/dL (Negative) 05/06/19 09:17 Urine Glucose (UA) Neg mg/dL (Negative) 05/06/19 09:17 Urine Ketones Neg mg/dL (Negative) 05/06/19 09:17 Urine Blood Sm (Negative) 05/06/19 09:17 Urine Nitrite Neg (Negative) 05/06/19 09:17 Urine Bilirubin Neg (Negative) 05/06/19 09:17 Urine Urobilinogen 4.0 mg/dL (<2.0) 05/06/19 09:17 Ur Leukocyte Esterase Neg (Negative) 05/06/19 09:17 Urine WBC (Auto) < 1.0 /HPF (0.0-6.0) 05/06/19 09:17 Urine RBC (Auto) 2.0 /HPF (0.0-6.0) 05/06/19 09:17 Blood Type O POSITIVE 05/06/19 04:47 Antibody Screen Negative 05/06/19 04:47 Crossmatch See Detail 05/06/19 04:47 Active Medications - Current Medications Current Medications: Generic Name Dose Route Start Last Admin Trade Name Freq PRN Reason Stop Dose Admin Bisacodyl 10 mg 05/06/19 02:47 Dulcolax IN QDAY PRN Constipation unrelieved by MOM Carvedilol 25 mg 05/06/19 10:00 05/06/19 21:27 Coreg PO Not Given BID WAYNE Diphenhydramine HCl 25 mg 05/06/19 05:07 05/06/19 23:07 Benadryl IV 25 mg Q6H PRN Administration Itching Folic Acid 1 mg 05/06/19 10:00 05/06/19 09:16 Folvite PO 1 mg QDAY WAYNE Administration Hydromorphone HCl 2 mg 05/06/19 15:42 05/06/19 23:06 Dilaudid IV 2 mg Q3H PRN Administration Pain , Severe (7-10) Hydroxyurea 1,000 mg 05/06/19 10:00 05/06/19 09:24 Hydrea PO 1,000 mg DAILY WAYNE Administration Levofloxacin/Dextrose 750 mg in 150 mls @ 100 mls/hr 05/06/19 03:13 05/06/19 10:05 Levaquin 750mg/150ml IV Not Given Q24HR WAYNE Protocol Aztreonam 1 gm in 50 mls @ 50 mls/hr 05/06/19 06:59 05/06/19 21:21 Azactam/Ns 1 Gm/50 Ml IV 50 mls/hr Q8HR WAYNE Administration Protocol Dextrose/Sodium Chloride 1,000 mls @ 175 mls/hr 05/06/19 16:00 05/06/19 17:09 D5ns 0.2% IV 175 mls/hr DIRECT WAYNE Administration Magnesium Hydroxide 30 ml 05/06/19 02:47 Milk Of Magnesia PO Q4H PRN Constipation Morphine Sulfate 30 mg 05/06/19 06:00 05/06/19 21:25 Ms Contin Er PO 30 mg Q8HR WAYNE Administration Multivitamins 1 each 05/06/19 10:00 05/06/19 09:16 Theragran Tab PO 1 each QDAY WAYNE Administration Ondansetron HCl 4 mg 05/06/19 02:47 Zofran IV Q4H PRN Nausea And Vomiting Senna 17.2 mg 05/06/19 22:00 05/06/19 21:22 Senokot PO 17.2 mg QHS WAYNE Administration Nutrition/Malnutrition Assess - Dietary Evaluation Nutrition/Malnutrition Findings: Nutrition Notes Start: 05/06/19 09:09 Freq: Status: Active Protocol: Document 05/06/19 09:09 LP (Rec: 05/06/19 09:21 LP [id number]) Nutrition Notes 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 Pt states not eating well and was just D/C from [place]. Pt state he wants Ensure shakes. Pt states wt loss of 15 lbs in 1.5 weeks. Breakfast tray untouched this AM. Burn Absent Trauma Absent GI Symptoms None Minimum of two criteria Yes Energy Intake (severe) < or equal to 50% Estimated Energy Requirement > or equal to 5 days Interpretation of Weight Loss (severe) >2% in 1 week Body Fat Depletion Mild depletion (non-severe) Muscle Mass Mild Depletion (non-severe) #1 Nutrition Diagnosis Malnutrition Etiology Poor appetite/ recent hospitalization As Evidenced by Signs and Symptoms Consuming 50% of meals for the past 5 day and wt loss of 10. 7% in 1.5 weeks Is patient on ventilator? No Is Patient Ambulatory and/or Out of Bed Yes REE-([facility]-ambulatory/OOB) [ 1897.662 NUTR.MSJOOB] Calculation Used for Recommendations [facility] Additional Notes Protein needs are 68-85g (1.2- 1.5g/kg) Fluid needs are 1ml/kcal Nutrition Intervention Change Diet Order: Continue Add Supplement/Snack (indicate name/kcal Ensure Enlive TID [place] /protein ) Provides kCal: 1,050 Provides Protein (gm) 60 Goal #1 Meet at least 80% of kcal and protein needs via meals and ONS Goal #2 Wt maintenance Anticipated Discharge Needs: Regular diet with ONS BID-TID Follow-Up By: 05/08/19 Additional Comments Follow for intakes and ONS tolerance
[2019-05-07] MEDS: DILAUDID IV PRN ×8 (02:19→23:57)
[2019-05-07] MEDS: D5NS 0.2% 1,000 ML IV SCH ×3 (02:30→18:08)
[2019-05-07] MEDS: BENADRYL IV PRN ×4 (05:24→23:58)
[2019-05-07] MEDS: MS CONTIN ER PO SCH ×3 (05:24→21:01)
[2019-05-07] MEDS: AZACTAM/NS 1 GM/50 ML 1 GM/50 ML VIAL IV SCH ×3 (05:24→21:00)
[2019-05-07 06:55] LABS: Hematocrit 24.5 % (35.5-45.6); Hemoglobin 8.5 gm/dl (11.8-15.2); Mean Corpuscular HGB Conc 35 % (32-34); Mean Corpuscular Volume 90 fl (84-94); Platelet Count 286 K/mm3 (140-440); Red Blood Count 2.72 M/mm3 (3.65-5.03)
[2019-05-07 07:06] LABS: Red Cell Distribution Width 21.8 % (13.2-15.2)
[2019-05-07 07:15] LABS: Alanine Aminotransferase 67 units/L (7-56); Albumin 3.5 g/dL (3.9-5); BUN/Creatinine Ratio 27; Blood Urea Nitrogen 8 mg/dL (9-20); Calcium 8.6 mg/dL (8.4-10.2); Hemolysis Index 9; Iron 132 ug/dL (49-181)
--- NOTE | 2019-05-07 08:54 | Progress Note ---
Assessment and Plan Assessment and plan: --Severe Sickle cell crisis; O2,IV fluids,pain medications Retic count 17.5, supportive care hematology following -- Severe sickle cell anemia: 2 units PRBC transfusion Hemoglobin improved from 5.6 to 8.5 Monitor H /H and Transfuse additional as needed --SIRS:Leukocytosis: Emperic antibiotics,f/u cultures --Transaminitis; secondary to underlying sickle cell disease Monitor closely, GI evaluation if needed --DVT prophylaxis: SCD Plan of care d/w patient and his nurse Hepatology evaluation and recommendations noted and appreciated Disposition; continue inpatient management Possible discharge when medically stable History Interval history: Patient seen and examined medical records reviewed Admitted with sickle cell anemia requiring blood transfusion, severe sickle cell crisis On pain medications IV fluids oxygen, very minimal improvement Patient complaint generalized body pain, not feeling well Alert awake oriented, mild distress Vital signs noted Hospitalist Physical - Constitutional Vitals: Temp Pulse Resp BP Pulse Ox 98.7 F 73 18 123/78 96 05/07/19 05:50 05/07/19 05:50 05/07/19 05:50 05/07/19 05:50 05/07/19 05:50 General appearance: Present: mild distress, cachectic, disheveled - EENT Eyes: Present: PERRL, EOM intact - Neck Neck: Present: supple, normal ROM - Respiratory Respiratory effort: normal Respiratory: bilateral: diminished, negative: rales, rhonchi, wheezing - Cardiovascular Rhythm: regular Heart Sounds: Present: S1 & S2 - Extremities Extremities: no ischemia, No edema - Abdominal General gastrointestinal: soft, non-tender, non-distended, normal bowel sounds - Integumentary Integumentary: Present: clear, warm - Psychiatric Psychiatric: appropriate mood/affect, cooperative - Neurologic Neurologic: CNII-XII intact, moves all extremities Results - Labs CBC & Chem 7: 05/07/19 06:26 05/07/19 06:26 Labs: Laboratory Last Values WBC 17.7 K/mm3 (4.5-11.0) H 05/07/19 06:26 RBC 2.72 M/mm3 (3.65-5.03) L 05/07/19 06:26 Hgb 8.5 gm/dl (11.8-15.2) L 05/07/19 06:26 Hct 24.5 % (35.5-45.6) L 05/07/19 06:26 MCV 90 fl (84-94) 05/07/19 06:26 MCH 31 pg (28-32) 05/07/19 06:26 MCHC 35 % (32-34) H 05/07/19 06:26 RDW 21.8 % (13.2-15.2) H 05/07/19 06:26 Plt Count 286 K/mm3 (140-440) 05/07/19 06:26 [place] % (Auto) Power Project Manager 05/07/19 06:26 Add Manual Diff Complete 05/06/19 04:12 Total Counted 100 05/06/19 04:12 Seg Neuts % (Manual) 66.0 % (40.0-70.0) 05/06/19 04:12 Band Neutrophils % 0 % 05/06/19 04:12 Lymphocytes % (Manual) 23.0 % (13.4-35.0) 05/06/19 04:12 Reactive Lymphs % (Man) 0 % 05/06/19 04:12 Monocytes % (Manual) 9.0 % (0.0-7.3) H 05/06/19 04:12 Eosinophils % (Manual) 2.0 % (0.0-4.3) 05/06/19 04:12 Basophils % (Manual) 0 % (0.0-1.8) 05/06/19 04:12 Metamyelocytes % 0 % 05/06/19 04:12 Myelocytes % 0 % 05/06/19 04:12 Promyelocytes % 0 % 05/06/19 04:12 Blast Cells % 0 % 05/06/19 04:12 Nucleated RBC % 1.0 % (0.0-0.9) H 05/06/19 04:12 Seg Neutrophils # Man 11.6 K/mm3 (1.8-7.7) H 05/06/19 04:12 Band Neutrophils # 0.0 K/mm3 05/06/19 04:12 Lymphocytes # (Manual) 4.0 K/mm3 (1.2-5.4) 05/06/19 04:12 Abs React Lymphs (Man) 0.0 K/mm3 05/06/19 04:12 Monocytes # (Manual) 1.6 K/mm3 (0.0-0.8) H 05/06/19 04:12 Eosinophils # (Manual) 0.4 K/mm3 (0.0-0.4) 05/06/19 04:12 Basophils # (Manual) 0.0 K/mm3 (0.0-0.1) 05/06/19 04:12 Metamyelocytes # 0.0 K/mm3 05/06/19 04:12 Myelocytes # 0.0 K/mm3 05/06/19 04:12 Promyelocytes # 0.0 K/mm3 05/06/19 04:12 Blast Cells # 0.0 K/mm3 05/06/19 04:12 WBC Morphology Not Reportable 05/06/19 04:12 Hypersegmented Neuts Not Reportable 05/06/19 04:12 Hyposegmented Neuts Not Reportable 05/06/19 04:12 Hypogranular Neuts Not Reportable 05/06/19 04:12 Smudge Cells Not Reportable 05/06/19 04:12 Toxic Granulation Not Reportable 05/06/19 04:12 Toxic Vacuolation Not Reportable 05/06/19 04:12 Dohle Bodies Not Reportable 05/06/19 04:12 Pelger-Huet Anomaly Not Reportable 05/06/19 04:12 Christian Rods Not Reportable 05/06/19 04:12 Platelet Estimate Consistent w auto 05/06/19 04:12 Clumped Platelets Not Reportable 05/06/19 04:12 Plt Clumps, EDTA Not Reportable 05/06/19 04:12 Large Platelets Not Reportable 05/06/19 04:12 Giant Platelets Not Reportable 05/06/19 04:12 Platelet Satelliting Not Reportable 05/06/19 04:12 Plt Morphology Comment Not Reportable 05/06/19 04:12 RBC Morphology Not Reportable 05/06/19 04:12 Dimorphic RBCs Not Reportable 05/06/19 04:12 Polychromasia Not Reportable 05/06/19 04:12 Hypochromasia 1+ 05/06/19 04:12 Poikilocytosis Not Reportable 05/06/19 04:12 Anisocytosis 1+ 05/06/19 04:12 Microcytosis Few 05/06/19 04:12 Macrocytosis Not Reportable 05/06/19 04:12 Spherocytes Not Reportable 05/06/19 04:12 Pappenheimer Bodies Not Reportable 05/06/19 04:12 Sickle Cells 1+ 05/06/19 04:12 Target Cells Not Reportable 05/06/19 04:12 Tear Drop Cells Not Reportable 05/06/19 04:12 Ovalocytes Not Reportable 05/06/19 04:12 Helmet Cells Not Reportable 05/06/19 04:12 [place] Bodies Not Reportable 05/06/19 04:12 [place] Rings Not Reportable 05/06/19 04:12 [place] Cells Not Reportable 05/06/19 04:12 Bite Cells Not Reportable 05/06/19 04:12 Crenated Cell Not Reportable 05/06/19 04:12 Elliptocytes Not Reportable 05/06/19 04:12 Acanthocytes (Spur) Not Reportable 05/06/19 04:12 Rouleaux Not Reportable 05/06/19 04:12 Hemoglobin C Crystals Not Reportable 05/06/19 04:12 Schistocytes Not Reportable 05/06/19 04:12 Malaria parasites Not Reportable 05/06/19 04:12 Percent Retic 17.05 % (0.78-2.58) H 05/07/19 06:26 You Bodies Not Reportable 05/06/19 04:12 Hem Pathologist Commnt No 05/06/19 04:12 Sodium 136 mmol/L (137-145) L 05/07/19 06:26 Potassium 3.8 mmol/L (3.6-5.0) 05/07/19 06:26 Chloride 100.6 mmol/L (98-107) 05/07/19 06:26 Carbon Dioxide 21 mmol/L (22-30) L 05/07/19 06:26 Anion Gap 18 mmol/L 05/07/19 06:26 BUN 8 mg/dL (9-20) L 05/07/19 06:26 Creatinine 0.3 mg/dL (0.8-1.5) L 05/07/19 06:26 Estimated GFR > 60 ml/min 05/07/19 06:26 BUN/Creatinine Ratio 27 % 05/07/19 06:26 Glucose 89 mg/dL (75-100) 05/07/19 06:26 Calcium 8.6 mg/dL (8.4-10.2) 05/07/19 06:26 Iron 132 ug/dL (49-181) 05/07/19 06:26 Total Bilirubin 3.80 mg/dL (0.1-1.2) H 05/07/19 06:26 Direct Bilirubin 1.3 mg/dL (0-0.2) H 05/06/19 04:12 Indirect Bilirubin 3.1 mg/dL 05/06/19 04:12 AST 98 units/L (5-40) H 05/07/19 06:26 ALT 67 units/L (7-56) H 05/07/19 06:26 Alkaline Phosphatase 153 units/L (35-129) H 05/07/19 06:26 Lactate Dehydrogenase 486 units/L (91-180) H 05/07/19 06:26 Total Protein 7.0 g/dL (6.3-8.2) 05/07/19 06:26 Albumin 3.5 g/dL (3.9-5) L 05/07/19 06:26 Albumin/Globulin Ratio 1.0 % 05/07/19 06:26 Urine Color Yellow (Yellow) 05/06/19 09:17 Urine Turbidity Clear (Clear) 05/06/19 09:17 Urine pH 6.0 (5.0-7.0) 05/06/19 09:17 Ur Specific [place] 1.006 (1.003-1.030) 05/06/19 09:17 Urine Protein <15 mg/dl mg/dL (Negative) 05/06/19 09:17 Urine Glucose (UA) Neg mg/dL (Negative) 05/06/19 09:17 Urine Ketones Neg mg/dL (Negative) 05/06/19 09:17 Urine Blood Sm (Negative) 05/06/19 09:17 Urine Nitrite Neg (Negative) 05/06/19 09:17 Urine Bilirubin Neg (Negative) 05/06/19 09:17 Urine Urobilinogen 4.0 mg/dL (<2.0) 05/06/19 09:17 Ur Leukocyte Esterase Neg (Negative) 05/06/19 09:17 Urine WBC (Auto) < 1.0 /HPF (0.0-6.0) 05/06/19 09:17 Urine RBC (Auto) 2.0 /HPF (0.0-6.0) 05/06/19 09:17 Blood Type O POSITIVE 05/06/19 04:47 Antibody Screen Negative 05/06/19 04:47 Crossmatch See Detail 05/06/19 04:47 Active Medications - Current Medications Current Medications: Generic Name Dose Route Start Last Admin Trade Name Freq PRN Reason Stop Dose Admin Bisacodyl 10 mg 05/06/19 02:47 Dulcolax MD QDAY PRN Constipation unrelieved by MOM Carvedilol 25 mg 05/06/19 10:00 05/06/19 21:27 Coreg PO Not Given BID WAYNE Diphenhydramine HCl 25 mg 05/06/19 05:07 05/07/19 05:24 Benadryl IV 25 mg Q6H PRN Administration Itching Folic Acid 1 mg 05/06/19 10:00 05/06/19 09:16 Folvite PO 1 mg QDAY WAYNE Administration Hydromorphone HCl 2 mg 05/06/19 15:42 05/07/19 08:30 Dilaudid IV 2 mg Q3H PRN Administration Pain , Severe (7-10) Hydroxyurea 1,000 mg 05/06/19 10:00 05/06/19 09:24 Hydrea PO 1,000 mg DAILY WAYNE Administration Levofloxacin/Dextrose 750 mg in 150 mls @ 100 mls/hr 05/06/19 03:13 05/06/19 10:05 Levaquin 750mg/150ml IV Not Given Q24HR WAYNE Protocol Aztreonam 1 gm in 50 mls @ 50 mls/hr 05/06/19 06:59 05/07/19 05:24 Azactam/Ns 1 Gm/50 Ml IV 50 mls/hr Q8HR WAYNE Administration Protocol Dextrose/Sodium Chloride 1,000 mls @ 175 mls/hr 05/06/19 16:00 05/07/19 02:30 D5ns 0.2% IV 175 mls/hr DIRECT WAYNE Administration Magnesium Hydroxide 30 ml 05/06/19 02:47 Milk Of Magnesia PO Q4H PRN Constipation Morphine Sulfate 30 mg 05/06/19 06:00 05/07/19 05:24 Ms Contin Er PO 30 mg Q8HR WAYNE Administration Multivitamins 1 each 05/06/19 10:00 05/06/19 09:16 Theragran Tab PO 1 each QDAY WAYNE Administration Ondansetron HCl 4 mg 10/05/19 02:47 Zofran IV Q4H PRN Nausea And Vomiting Senna 17.2 mg 05/06/19 22:00 05/06/19 21:22 Senokot PO 17.2 mg QHS WAYNE Administration Nutrition/Malnutrition Assess - Dietary Evaluation Nutrition/Malnutrition Findings: Nutrition Notes Start: 05/06/19 09:09 Freq: Status: Active Protocol: Document 05/06/19 09:09 LP (Rec: 05/06/19 09:21 LP [id number]) Nutrition Notes 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 Pt states not eating well and was just D/C from [place]. Pt state he wants Ensure shakes. Pt states wt loss of 15 lbs in 1.5 weeks. Breakfast tray untouched this AM. Burn Absent Trauma Absent GI Symptoms None Minimum of two criteria Yes Energy Intake (severe) < or equal to 50% Estimated Energy Requirement > or equal to 5 days Interpretation of Weight Loss (severe) >2% in 1 week Body Fat Depletion Mild depletion (non-severe) Muscle Mass Mild Depletion (non-severe) #1 Nutrition Diagnosis Malnutrition Etiology Poor appetite/ recent hospitalization As Evidenced by Signs and Symptoms Consuming 50% of meals for the past 5 day and wt loss of 10. 7% in 1.5 weeks Is patient on ventilator? No Is Patient Ambulatory and/or Out of Bed Yes REE-([place] [facility]-ambulatory/OOB) [ 1897.662 NUTR.MSJOOB] [facility] Additional Notes Protein needs are 68-85g (1.2- 1.5g/kg) Fluid needs are 1ml/kcal Nutrition Intervention Change Diet Order: Continue Add Supplement/Snack (indicate name/kcal Ensure Enlive TID [place] /protein ) Provides kCal: 1,050 Provides Protein (gm) 60 Goal #1 Meet at least 80% of kcal and protein needs via meals and ONS Goal #2 Wt maintenance Anticipated Discharge Needs: Regular diet with ONS BID-TID Follow-Up By: 05/08/19 Additional Comments Follow for intakes and ONS tolerance
[2019-05-07] MEDS: LEVAQUIN 750MG/150ML 750 MG/150 ML BAG IV SCH (10:23)
[2019-05-07] MEDS: COREG PO SCH ×2 (10:24→23:52)
[2019-05-07] MEDS: HYDREA PO SCH (10:24)
[2019-05-07] MEDS: THERAGRAN Tab PO SCH (10:25)
[2019-05-07] MEDS: FOLVITE PO SCH (10:25)
[2019-05-07 10:45] LABS: Band Neutrophils # (Manual) 0.4 K/mm3; Total Cells Counted 100
[2019-05-07 10:47] LABS: Giant Platelets Few; Hypochromasia 1+; Platelet Estimate Consistent w Auto; Sickle Cells 1+; Target Cells 1+
[2019-05-07 10:52] LABS: Total Iron Binding Capacity 142 mcg/dL (250-450)
[2019-05-07] MEDS: SENOKOT PO SCH (21:01)
[2019-05-08] MEDS: DILAUDID IV PRN ×7 (03:35→22:18)
[2019-05-08] MEDS: D5NS 0.2% 1,000 ML IV SCH ×3 (03:36→16:38)
[2019-05-08] MEDS: AZACTAM/NS 1 GM/50 ML 1 GM/50 ML VIAL IV SCH ×3 (06:31→22:11)
[2019-05-08] MEDS: BENADRYL IV PRN ×3 (06:31→19:29)
[2019-05-08] MEDS: MS CONTIN ER PO SCH ×3 (06:32→22:14)
[2019-05-08 07:05] LABS: Basophils # (Auto) 0.1 K/mm3 (0.0-0.1); Basophils % (Auto) 0.7 % (0.0-1.8); Eosinophils # (Auto) 0.9 K/mm3 (0.0-0.4); Eosinophils % (Auto) 5.7 % (0.0-4.3); Hematocrit 24.1 % (35.5-45.6); Hemoglobin 8.4 gm/dl (11.8-15.2); Lymphocytes # (Auto) 2.6 K/mm3 (1.2-5.4); Lymphocytes % (Auto) 15.9 % (13.4-35.0); Mean Corpuscular HGB Conc 35 % (32-34); Mean Corpuscular Volume 90 fl (84-94); Monocytes # (Auto) 2.5 K/mm3 (0.0-0.8); Monocytes % (Auto) 15.4 % (0.0-7.3); Platelet Count 233 K/mm3 (140-440); Red Blood Count 2.69 M/mm3 (3.65-5.03)
[2019-05-08 07:29] LABS: Red Cell Distribution Width 20.4 % (13.2-15.2)
[2019-05-08 07:31] LABS: Alanine Aminotransferase 54 units/L (7-56); Albumin 3.5 g/dL (3.9-5); BUN/Creatinine Ratio 35; Blood Urea Nitrogen 7 mg/dL (9-20); Calcium 8.4 mg/dL (8.4-10.2); Hemolysis Index 4
[2019-05-08] MEDS: THERAGRAN Tab PO SCH (09:52)
[2019-05-08] MEDS: COREG PO SCH ×2 (09:52→22:15)
[2019-05-08] MEDS: FOLVITE PO SCH (09:52)
[2019-05-08] MEDS: LEVAQUIN 750MG/150ML 750 MG/150 ML BAG IV SCH (09:53)
[2019-05-08] MEDS: HYDREA PO SCH (09:54)
--- NOTE | 2019-05-08 16:23 | Progress Note ---
Assessment and Plan Assessment and plan: -- Severe sickle cell anemia: 2 units PRBC transfusion Hemoglobin improved from 5.6 to 8.5 Monitor H /H and Transfuse additional as needed --Sickle cell crisis; O2,IV fluids,pain medications Retic count 17.5, supportive care hematology following --SIRS:Leukocytosis: Emperic antibiotics,f/u cultures --Transaminitis; secondary to underlying sickle cell disease Monitor closely, GI evaluation if needed --DVT prophylaxis: SCD Plan of care d/w patient and his nurse Hepatology evaluation and recommendations noted and appreciated Disposition; continue inpatient management Possible discharge when medically stable History Interval history: Patient Seen and examined medical records reviewed Patient complains of generalized body pains Vital signs noted Hospitalist Physical - Constitutional Vitals: Temp Pulse Resp BP Pulse Ox 98.7 F 80 20 105/65 97 05/08/19 11:49 05/08/19 11:49 05/08/19 11:49 05/08/19 11:49 05/08/19 11:49 General appearance: Present: no acute distress, cachectic, disheveled - EENT Eyes: Present: PERRL, EOM intact - Neck Neck: Present: supple, normal ROM - Respiratory Respiratory effort: normal Respiratory: bilateral: diminished, negative: rales, rhonchi, wheezing - Cardiovascular Rhythm: regular Heart Sounds: Present: S1 & S2 - Extremities Extremities: no ischemia, No edema - Abdominal General gastrointestinal: soft, non-tender, non-distended, normal bowel sounds - Integumentary Integumentary: Present: clear, warm - Psychiatric Psychiatric: appropriate mood/affect, cooperative - Neurologic Neurologic: CNII-XII intact, moves all extremities Results - Labs CBC & Chem 7: 05/08/19 18:18 05/08/19 06:54 Labs: Laboratory Last Values WBC 16.3 K/mm3 (4.5-11.0) H 05/08/19 06:54 RBC 2.69 M/mm3 (3.65-5.03) L 05/08/19 06:54 Hgb 8.4 gm/dl (11.8-15.2) L 05/08/19 06:54 Hct 24.1 % (35.5-45.6) L 05/08/19 06:54 MCV 90 fl (84-94) 05/08/19 06:54 MCH 31 pg (28-32) 05/08/19 06:54 MCHC 35 % (32-34) H 05/08/19 06:54 RDW 20.4 % (13.2-15.2) H 05/08/19 06:54 Plt Count 233 K/mm3 (140-440) 05/08/19 06:54 Lymph % (Auto) 15.9 % (13.4-35.0) 05/08/19 06:54 Gem % (Auto) 15.4 % (0.0-7.3) H 05/08/19 06:54 Eos % (Auto) 5.7 % (0.0-4.3) H 05/08/19 06:54 Baso % (Auto) 0.7 % (0.0-1.8) 05/08/19 06:54 Lymph # 2.6 K/mm3 (1.2-5.4) 05/08/19 06:54 Gem # 2.5 K/mm3 (0.0-0.8) H 05/08/19 06:54 Eos # 0.9 K/mm3 (0.0-0.4) H 05/08/19 06:54 Baso # 0.1 K/mm3 (0.0-0.1) 05/08/19 06:54 Add Manual Diff Complete 05/07/19 06:26 Total Counted 100 05/07/19 06:26 Seg Neutrophils % 62.3 % (40.0-70.0) 05/08/19 06:54 Seg Neuts % (Manual) 70.0 % (40.0-70.0) 05/07/19 06:26 Band Neutrophils % 2.0 % 05/07/19 06:26 Lymphocytes % (Manual) 9.0 % (13.4-35.0) L 05/07/19 06:26 Reactive Lymphs % (Man) 4.0 % 05/07/19 06:26 Monocytes % (Manual) 12.0 % (0.0-7.3) H 05/07/19 06:26 Eosinophils % (Manual) 2.0 % (0.0-4.3) 05/07/19 06:26 Basophils % (Manual) 1.0 % (0.0-1.8) 05/07/19 06:26 Metamyelocytes % 0 % 05/07/19 06:26 Myelocytes % 0 % 05/07/19 06:26 Promyelocytes % 0 % 05/07/19 06:26 Blast Cells % 0 % 05/07/19 06:26 Nucleated RBC % 3.0 % (0.0-0.9) H 05/07/19 06:26 Seg Neutrophils # 10.2 K/mm3 (1.8-7.7) H 05/08/19 06:54 Seg Neutrophils # Man 12.4 K/mm3 (1.8-7.7) H 05/07/19 06:26 Band Neutrophils # 0.4 K/mm3 05/07/19 06:26 Lymphocytes # (Manual) 1.6 K/mm3 (1.2-5.4) 05/07/19 06:26 Abs React Lymphs (Man) 0.7 K/mm3 05/07/19 06:26 Monocytes # (Manual) 2.1 K/mm3 (0.0-0.8) H 05/07/19 06:26 Eosinophils # (Manual) 0.4 K/mm3 (0.0-0.4) 05/07/19 06:26 Basophils # (Manual) 0.2 K/mm3 (0.0-0.1) H 05/07/19 06:26 Metamyelocytes # 0.0 K/mm3 05/07/19 06:26 Myelocytes # 0.0 K/mm3 05/07/19 06:26 Promyelocytes # 0.0 K/mm3 05/07/19 06:26 Blast Cells # 0.0 K/mm3 05/07/19 06:26 WBC Morphology Not Reportable 05/07/19 06:26 Hypersegmented Neuts Not Reportable 05/07/19 06:26 Hyposegmented Neuts Not Reportable 05/07/19 06:26 Hypogranular Neuts Not Reportable 05/07/19 06:26 Smudge Cells Not Reportable 05/07/19 06:26 Toxic Granulation Not Reportable 05/07/19 06:26 Toxic Vacuolation Not Reportable 05/07/19 06:26 Dohle Bodies Not Reportable 05/07/19 06:26 Pelger-Huet Anomaly Not Reportable 05/07/19 06:26 Christian Rods Not Reportable 05/07/19 06:26 Platelet Estimate Consistent w auto 05/07/19 06:26 Clumped Platelets Not Reportable 05/07/19 06:26 Plt Clumps, EDTA Not Reportable 05/07/19 06:26 Large Platelets Not Reportable 05/07/19 06:26 Giant Platelets Few 05/07/19 06:26 Platelet Satelliting Not Reportable 05/07/19 06:26 Plt Morphology Comment Not Reportable 05/07/19 06:26 RBC Morphology Not Reportable 05/07/19 06:26 Dimorphic RBCs Not Reportable 05/07/19 06:26 Polychromasia 1+ 05/07/19 06:26 Hypochromasia 1+ 05/07/19 06:26 Poikilocytosis Not Reportable 05/07/19 06:26 Anisocytosis Not Reportable 05/07/19 06:26 Microcytosis Not Reportable 05/07/19 06:26 Macrocytosis Not Reportable 05/07/19 06:26 Spherocytes Not Reportable 05/07/19 06:26 Pappenheimer Bodies Not Reportable 05/07/19 06:26 Sickle Cells 1+ 05/07/19 06:26 Target Cells 1+ 05/07/19 06:26 Tear Drop Cells Not Reportable 05/07/19 06:26 Ovalocytes Not Reportable 05/07/19 06:26 Helmet Cells Not Reportable 05/07/19 06:26 [place] Bodies Not Reportable 05/07/19 06:26 Arnold Rings Not Reportable 05/07/19 06:26 [place] Cells Not Reportable 05/07/19 06:26 Bite Cells Not Reportable 05/07/19 06:26 Crenated Cell Not Reportable 05/07/19 06:26 Elliptocytes Not Reportable 05/07/19 06:26 Acanthocytes (Spur) Not Reportable 05/07/19 06:26 Rouleaux Not Reportable 05/07/19 06:26 Hemoglobin C Crystals Not Reportable 05/07/19 06:26 Schistocytes Not Reportable 05/07/19 06:26 Malaria parasites Not Reportable 05/07/19 06:26 Percent Retic 16.17 % (0.78-2.58) H 05/08/19 06:54 You Bodies Not Reportable 05/07/19 06:26 Hem Pathologist Commnt No 05/07/19 06:26 Sodium 137 mmol/L (137-145) 05/08/19 06:54 Potassium 3.8 mmol/L (3.6-5.0) 05/08/19 06:54 Chloride 103.3 mmol/L (98-107) 05/08/19 06:54 Carbon Dioxide 25 mmol/L (22-30) 05/08/19 06:54 Anion Gap 13 mmol/L 05/08/19 06:54 BUN 7 mg/dL (9-20) L 05/08/19 06:54 Creatinine 0.2 mg/dL (0.8-1.5) L 05/08/19 06:54 Estimated GFR > 60 ml/min 05/08/19 06:54 BUN/Creatinine Ratio 35 % 05/08/19 06:54 Glucose 107 mg/dL (75-100) H 05/08/19 06:54 Calcium 8.4 mg/dL (8.4-10.2) 05/08/19 06:54 Iron 132 ug/dL (49-181) 05/07/19 06:26 TIBC 142 mcg/dL (250-450) L 05/07/19 06:26 Ferritin 7995.0 ng/mL (13.0-400.0) H 05/07/19 06:26 Total Bilirubin 3.60 mg/dL (0.1-1.2) H 05/08/19 06:54 Direct Bilirubin 1.3 mg/dL (0-0.2) H 05/06/19 04:12 Indirect Bilirubin 3.1 mg/dL 05/06/19 04:12 AST 73 units/L (5-40) H 05/08/19 06:54 ALT 54 units/L (7-56) 05/08/19 06:54 Alkaline Phosphatase 144 units/L (35-129) H 05/08/19 06:54 Lactate Dehydrogenase 440 units/L (91-180) H 05/08/19 06:54 Total Protein 6.6 g/dL (6.3-8.2) 05/08/19 06:54 Albumin 3.5 g/dL (3.9-5) L 05/08/19 06:54 Albumin/Globulin Ratio 1.1 % 05/08/19 06:54 Urine Color Yellow (Yellow) 05/06/19 09:17 Urine Turbidity Clear (Clear) 05/06/19 09:17 Urine pH 6.0 (5.0-7.0) 05/06/19 09:17 Ur Specific [place] 1.006 (1.003-1.030) 05/06/19 09:17 Urine Protein <15 mg/dl mg/dL (Negative) 05/06/19 09:17 Urine Glucose (UA) Neg mg/dL (Negative) 05/06/19 09:17 Urine Ketones Neg mg/dL (Negative) 05/06/19 09:17 Urine Blood Sm (Negative) 05/06/19 09:17 Urine Nitrite Neg (Negative) 05/06/19 09:17 Urine Bilirubin Neg (Negative) 05/06/19 09:17 Urine Urobilinogen 4.0 mg/dL (<2.0) 05/06/19 09:17 Ur Leukocyte Esterase Neg (Negative) 05/06/19 09:17 Urine WBC (Auto) < 1.0 /HPF (0.0-6.0) 05/06/19 09:17 Urine RBC (Auto) 2.0 /HPF (0.0-6.0) 05/06/19 09:17 Blood Type O POSITIVE 05/06/19 04:47 Antibody Screen Negative 05/06/19 04:47 Crossmatch See Detail 05/06/19 04:47 Active Medications - Current Medications Current Medications: Generic Name Dose Route Start Last Admin Trade Name Freq PRN Reason Stop Dose Admin Bisacodyl 10 mg 05/06/19 02:47 Dulcolax [place] QDAY PRN Constipation unrelieved by MOM Carvedilol 25 mg 05/06/19 10:00 05/08/19 09:52 Coreg PO 25 mg BID WAYNE Administration Diphenhydramine HCl 25 mg 05/06/19 05:07 05/08/19 13:15 Benadryl IV 25 mg Q6H PRN Administration Itching Folic Acid 1 mg 05/06/19 10:00 05/08/19 09:52 Folvite PO 1 mg QDAY WAYNE Administration Hydromorphone HCl 2 mg 05/06/19 15:42 05/08/19 13:15 Dilaudid IV 2 mg Q3H PRN Administration Pain , Severe (7-10) Hydroxyurea 1,000 mg 05/06/19 10:00 05/08/19 09:54 Hydrea PO 1,000 mg DAILY WAYNE Administration Levofloxacin/Dextrose 750 mg in 150 mls @ 100 mls/hr 05/06/19 03:13 05/08/19 09:53 Levaquin 750mg/150ml IV 100 mls/hr Q24HR WAYNE Administration Protocol Aztreonam 1 gm in 50 mls @ 50 mls/hr 05/06/19 06:59 05/08/19 13:16 Azactam/Ns 1 Gm/50 Ml IV 50 mls/hr Q8HR WAYNE Administration Protocol Dextrose/Sodium Chloride 1,000 mls @ 175 mls/hr 05/06/19 16:00 05/08/19 09:54 D5ns 0.2% IV 175 mls/hr DIRECT WAYNE Administration Magnesium Hydroxide 30 ml 05/06/19 02:47 Milk Of Magnesia PO Q4H PRN Constipation Morphine Sulfate 30 mg 05/06/19 06:00 05/08/19 15:26 Ms Contin Er PO 30 mg Q8HR WAYNE Administration Multivitamins 1 each 05/06/19 10:00 05/08/19 09:52 Theragran Tab PO 1 each QDAY WAYNE Administration Ondansetron HCl 4 mg 05/06/19 02:47 Zofran IV Q4H PRN Nausea And Vomiting Senna 17.2 mg 05/06/19 22:00 05/07/19 21:01 Senokot PO 17.2 mg QHS WAYNE Administration Nutrition/Malnutrition Assess - Dietary Evaluation Nutrition/Malnutrition Findings: Nutrition Notes Start: 05/06/19 09:09 Freq: Status: Active Protocol: Document 05/08/19 12:43 RM (Rec: 05/08/19 12:51 RM [id number]) Nutrition Notes Initial or Follow up Reassessment Current Diagnosis Hypertension Other Pertinent Diagnosis Sickle Cell anemia Current Diet Regular w/Ensure Enlive [place] TID Labs/Tests Reviewed Pertinent Medications Reviewed Height 5 ft 6 in Weight 60.3 kg [place] Body Weight (kg) 64.54 BMI 21.4 Subjective/Other Information Pt stated that his appetite is good and that he eats most or all of his meals. Also stated that he drinks the Ensure Enlive. Percent of energy/protein needs met: 159%/160% Burn Absent Trauma Absent Minimum of two criteria Yes #1 Nutrition Diagnosis Malnutrition Diagnosis Progress(for reassessment Continues documentation) Is patient on ventilator? No Is Patient Ambulatory and/or Out of Bed Yes REE-([facility] [place]-amb[place]/OOB) [ [id number] [id number]] Calculation Used for Recommendations [facility] Additional Notes Protein needs are 68-85g (1.2- 1.5g/kg) Fluid needs are 1ml/kcal Nutrition Intervention Change Diet Order: Continue Add Supplement/Snack (indicate name/kcal Ensure Enlive [place] BID /protein ) Provides kCal: 700 Provides Protein (gm) 40 Goal #1 Continue to meet at least 75% of calorie and protein needs via PO and ONS intakes Goal #2 Wt maintenance Anticipated Discharge Needs: Regular diet with ONS BID-TID Follow-Up By: 05/15/19 Additional Comments Follow for PO and ONS intakes
--- NOTE | 2019-05-08 18:10 | Consultation ---
History of Present Illness - Reason for Consult Consult date: 05/08/19 Co- management of SCD/Anemia.Pain crisis. Requesting physician: SHANNAN WILKINSON - History of Present Illness Thank you, patient seen/examined, records reviewed, personal patient of my office.He presented to the ER with CC of diffuse joint pain, admitted for sxs management, and control.Labs revealed low H/h, and hence needing replacement transfusion, despite chronic iron over load from blood transfusion.He will need pain control, hydration, check iron panel. Past History Past Medical History: anemia Past Surgical History: No surgical history Social history: , lives with family Family history: no significant family history Medications and Allergies Allergies Allergy/AdvReac Type Severity Reaction Status Date / Time ceftriaxone sodium Allergy Unknown Verified 03/09/18 07:35 [From Rocephin] meperidine HCl [From Demerol] Allergy Unknown Verified 03/09/18 07:35 Home Medications Medication Instructions Recorded Confirmed Last Taken Type Folic Acid [Folvite] 1 mg PO QDAY #30 tablet 07/26/17 05/06/19 05/09/18 Rx Morphine ER [Ms Contin ER] 60 mg PO Q12H 03/09/18 05/06/19 05/09/18 History Oxycodone HCl [oxyCODONE] 10 mg PO Q8H 03/09/18 05/06/19 05/09/18 History Carvedilol [Coreg] 25 mg PO BID 05/10/18 05/06/19 09/25/18 History Hydrea 1,000 mg PO DAILY 09/27/18 05/06/19 Unknown History Active Meds: Active Medications Bisacodyl (Dulcolax) 10 mg [place] QDAY PRN PRN Reason: Constipation unrelieved by MOM Carvedilol (Coreg) 25 mg PO BID [facility] Last Admin: 05/08/19 09:52 Dose: 25 mg Documented by: Diphenhydramine HCl (Benadryl) 25 mg IV Q6H PRN PRN Reason: Itching Last Admin: 05/08/19 13:15 Dose: 25 mg Documented by: Folic Acid (Folvite) 1 mg PO QDAY [facility] Last Admin: 05/08/19 09:52 Dose: 1 mg Documented by: Hydromorphone HCl (Dilaudid) 2 mg IV Q3H PRN PRN Reason: Pain , Severe (7-10) Last Admin: 05/08/19 16:36 Dose: 2 mg Documented by: Hydroxyurea (Hydrea) 1,000 mg PO DAILY [facility] Last Admin: 05/08/19 09:54 Dose: 1,000 mg Documented by: Levofloxacin/Dextrose (Levaquin 750mg/150ml) 750 mg in 150 mls @ 100 mls/hr IV Q24HR [facility]; Protocol Last Admin: 05/08/19 09:53 Dose: 100 mls/hr Documented by: Aztreonam (Azactam/Ns 1 Gm/50 Ml) 1 gm in 50 mls @ 50 mls/hr IV Q8HR [facility]; Protocol Last Admin: 05/08/19 13:16 Dose: 50 mls/hr Documented by: Dextrose/Sodium Chloride (D5ns 0.2%) 1,000 mls @ 175 mls/hr IV DIRECT [facility] Last Admin: 05/08/19 16:38 Dose: 175 mls/hr Documented by: Magnesium Hydroxide (Milk Of Magnesia) 30 ml PO Q4H PRN PRN Reason: Constipation Morphine Sulfate (Ms Contin Er) 30 mg PO Q8HR [facility] Last Admin: 05/08/19 15:26 Dose: 30 mg Documented by: Multivitamins (Theragran Tab) 1 each PO QDAY [facility] Last Admin: 05/08/19 09:52 Dose: 1 each Documented by: Mupirocin (Bactroban 2%) 1 applic NS BID [facility] Ondansetron HCl (Zofran) 4 mg IV Q4H PRN PRN Reason: Nausea And Vomiting Senna (Senokot) 17.2 mg PO QHS [facility] Last Admin: 05/07/19 21:01 Dose: 17.2 mg Documented by: Review of Systems Constitutional: chronic pain Musculoskeletal: low back pain Exam - Constitutional Vitals: Temp Pulse Resp BP Pulse Ox 98.7 F 80 20 105/65 97 05/08/19 11:49 05/08/19 11:49 05/08/19 11:49 05/08/19 11:49 05/08/19 11:49 General appearance: Present: mild distress, well-nourished - EENT Eyes: Present: PERRL ENT: hearing intact, clear oral mucosa - Neck Neck: Present: supple, normal ROM - Respiratory Respiratory effort: normal Respiratory: bilateral: CTA - Cardiovascular Heart Sounds: Present: S1 & S2. Absent: rub, click - Extremities Extremities: pulses symmetrical, No edema Peripheral Pulses: within normal limits - Abdominal General gastrointestinal: Present: soft, non-tender, non-distended, normal bowel sounds Male genitourinary: Present: deferred - Rectal Rectal Exam: deferred - Integumentary Integumentary: Present: clear, warm, dry - Musculoskeletal Musculoskeletal: gait normal, strength equal bilaterally - Psychiatric Psychiatric: appropriate mood/affect, intact judgment & insight - Neurologic Neurologic: CNII-XII intact, moves all extremities Results - Labs CBC & Chem 7: 05/08/19 06:54 05/08/19 06:54 Labs: Abnormal lab results 05/08/19 05/08/19 Range/Units 06:54 06:54 WBC 16.3 H (4.5-11.0) K/mm3 RBC 2.69 L (3.65-5.03) M/mm3 Hgb 8.4 L (11.8-15.2) gm/dl Hct 24.1 L (35.5-45.6) % MCHC 35 H (32-34) % RDW 20.4 H (13.2-15.2) % [place] % (Auto) 15.4 H (0.0-7.3) % Eos % (Auto) 5.7 H (0.0-4.3) % [place] # 2.5 H (0.0-0.8) K/mm3 Eos # 0.9 H (0.0-0.4) K/mm3 Seg Neutrophils # 10.2 H (1.8-7.7) K/mm3 Percent Retic 16.17 H (0.78-2.58) % BUN 7 L (9-20) mg/dL Creatinine 0.2 L (0.8-1.5) mg/dL Glucose 107 H (75-100) mg/dL Total Bilirubin 3.60 H (0.1-1.2) mg/dL AST 73 H (5-40) units/L Alkaline Phosphatase 144 H (35-129) units/L Lactate Dehydrogenase 440 H (91-180) units/L Albumin 3.5 L (3.9-5) g/dL Assessment and Plan - Patient Problems (1) Sickle cell pain crisis Current Visit: Yes Status: Acute Plan to address problem: pain control, supportive care. (2) Acute hemolytic anemia Current Visit: No Status: Acute Plan to address problem: Transfusion replacement. (3) Dehydration Current Visit: Yes Status: Acute Plan to address problem: Hydration. (4) Iron overload due to repeated red blood cell transfusions Current Visit: Yes Status: Chronic Plan to address problem: monitor iron level., and tx if needed.
[2019-05-08] MEDS ORDERED: TORADOL IV PRN (19:05)
[2019-05-08 19:44] LABS: Basophils % (Auto) 0.4 % (0.0-1.8); Eosinophils % (Auto) 3.9 % (0.0-4.3); Hematocrit 23.3 % (35.5-45.6); Hemoglobin 8.2 gm/dl (11.8-15.2); Lymphocytes # (Auto) 1.7 K/mm3 (1.2-5.4); Lymphocytes % (Auto) 9.5 % (13.4-35.0); Mean Corpuscular HGB Conc 35 % (32-34); Mean Corpuscular Volume 90 fl (84-94); Monocytes % (Auto) 13.4 % (0.0-7.3); Platelet Count 258 K/mm3 (140-440)
[2019-05-08 19:45] LABS: Basophils # (Auto) 0.1 K/mm3 (0.0-0.1); Eosinophils # (Auto) 0.7 K/mm3 (0.0-0.4); Monocytes # (Auto) 2.4 K/mm3 (0.0-0.8)
[2019-05-08] MEDS: SENOKOT PO SCH (22:14)
[2019-05-08] MEDS: BACTROBAN 2% NS SCH (22:15)
[2019-05-09] MEDS: D5NS 0.2% 1,000 ML IV SCH ×3 (01:01→22:10)
[2019-05-09] MEDS: BENADRYL IV PRN ×4 (01:32→22:03)
[2019-05-09] MEDS: DILAUDID IV PRN ×7 (01:32→22:04)
[2019-05-09] MEDS: MS CONTIN ER PO SCH ×3 (05:08→22:02)
[2019-05-09] MEDS: TYLENOL PO PRN (05:08)
[2019-05-09] MEDS: AZACTAM/NS 1 GM/50 ML 1 GM/50 ML VIAL IV SCH ×3 (05:19→22:04)
[2019-05-09 05:40] LABS: Basophils # (Auto) 0.1 K/mm3 (0.0-0.1); Basophils % (Auto) 0.5 % (0.0-1.8); Eosinophils # (Auto) 0.3 K/mm3 (0.0-0.4); Eosinophils % (Auto) 1.9 % (0.0-4.3); Hematocrit 24.7 % (35.5-45.6); Hemoglobin 8.4 gm/dl (11.8-15.2); Lymphocytes # (Auto) 2.1 K/mm3 (1.2-5.4); Lymphocytes % (Auto) 12.4 % (13.4-35.0); Mean Corpuscular HGB Conc 34 % (32-34); Mean Corpuscular Volume 90 fl (84-94); Monocytes # (Auto) 2.4 K/mm3 (0.0-0.8); Monocytes % (Auto) 14.1 % (0.0-7.3); Platelet Count 279 K/mm3 (140-440); Red Blood Count 2.75 M/mm3 (3.65-5.03); Red Cell Distribution Width 19.7 % (13.2-15.2)
[2019-05-09 07:02] LABS: Alanine Aminotransferase 70 units/L (7-56); Albumin 3.5 g/dL (3.9-5); BUN/Creatinine Ratio 33; Blood Urea Nitrogen 10 mg/dL (9-20); Calcium 8.6 mg/dL (8.4-10.2); Hemolysis Index 6; Iron 38 ug/dL (49-181); Total Iron Binding Capacity 144 mcg/dL (250-450)
[2019-05-09] MEDS: THERAGRAN Tab PO SCH (10:09)
[2019-05-09] MEDS: FOLVITE PO SCH (10:09)
[2019-05-09] MEDS: BACTROBAN 2% NS SCH ×2 (10:09→22:04)
[2019-05-09] MEDS: LEVAQUIN 750MG/150ML 750 MG/150 ML BAG IV SCH (10:10)
[2019-05-09] MEDS: HYDREA PO SCH (10:12)
[2019-05-09] MEDS: COREG PO SCH ×2 (10:18→22:03)
--- NOTE | 2019-05-09 10:57 | Progress Note ---
Assessment and Plan - Patient Problems (1) Sickle cell pain crisis Current Visit: Yes Status: Acute Plan to address problem: pain control, supportive care. (2) Acute hemolytic anemia Current Visit: No Status: Acute Plan to address problem: Transfusion replacement. (3) Dehydration Current Visit: Yes Status: Acute Plan to address problem: Hydration. (4) Iron overload due to repeated red blood cell transfusions Current Visit: Yes Status: Chronic Plan to address problem: monitor iron level., and tx if needed. Subjective Date of service: 05/09/19 Interval history: Patient seen/examined, resting in bed, spiked fever last night, better now , with tylenol. Labs reviewed, iron, and WBC high, will try DESF tx. He will continue with IV ABX, cultures still negative, so far.If continue to spike feve r, may add vanc. Objective - Constitutional Vitals: Vital Signs - 12hr 05/08/19 05/09/19 05/09/19 23:14 01:32 02:02 Temperature Pulse Rate Respiratory 18 18 18 Rate Blood Pressure O2 Sat by Pulse Oximetry 05/09/19 05/09/19 05/09/19 04:50 05:08 05:20 Temperature 102.5 F H Pulse Rate 89 Respiratory 20 20 20 Rate Blood Pressure 109/65 O2 Sat by Pulse 97 Oximetry 05/09/19 05/09/19 05/09/19 05:50 05:54 06:08 Temperature Pulse Rate Respiratory 18 18 Rate Blood Pressure O2 Sat by Pulse 99 Oximetry 05/09/19 10:18 Temperature Pulse Rate 83 Respiratory Rate Blood Pressure 110/60 O2 Sat by Pulse Oximetry General appearance: Present: mild distress, well-nourished - EENT Eyes: PERRL, EOM intact ENT: hearing intact, clear oral mucosa Ears: bilateral: normal - Neck Neck: supple, normal ROM - Respiratory Respiratory effort: normal Respiratory: bilateral: CTA - Breasts Breasts: deferred - Cardiovascular Rhythm: regular Heart Sounds: Present: S1 & S2. Absent: gallop, rub Extremities: pulses intact, No edema, normal color, Full ROM - Gastrointestinal General gastrointestinal: Present: soft, non-tender, non-distended, normal bowel sounds Rectal Exam: deferred - Genitourinary Male genitourinary: deferred - Integumentary Integumentary: clear, warm, dry - Musculoskeletal Musculoskeletal: 1, strength equal bilaterally - Neurologic Neurologic: moves all extremities - Psychiatric Psychiatric: memory intact, appropriate mood/affect, intact judgment & insight - Labs CBC & Chem 7: 05/09/19 Unknown 05/09/19 Unknown Labs: Abnormal lab results 05/08/19 05/08/19 05/09/19 Range/Units 06:54 18:18 Unknown WBC 17.9 H (4.5-11.0) K/mm3 RBC 2.60 L (3.65-5.03) M/mm3 Hgb 8.2 L (11.8-15.2) gm/dl Hct 23.3 L (35.5-45.6) % MCHC 35 H (32-34) % RDW 20.0 H (13.2-15.2) % Lymph % (Auto) 9.5 L (13.4-35.0) % [place] % (Auto) 13.4 H (0.0-7.3) % [place] # 2.4 H (0.0-0.8) K/mm3 Eos # 0.7 H (0.0-0.4) K/mm3 Seg Neutrophils % 72.8 H (40.0-70.0) % Seg Neutrophils # 13.0 H (1.8-7.7) K/mm3 Percent Retic 13.96 H (0.78-2.58) % Sodium 134 L (137-145) mmol/L Creatinine 0.3 L (0.8-1.5) mg/dL Glucose 104 H (75-100) mg/dL Iron 38 L (49-181) ug/dL TIBC 144 L (250-450) mcg/dL Total Bilirubin 4.60 H (0.1-1.2) mg/dL AST 119 H (5-40) units/L ALT 70 H (7-56) units/L Alkaline Phosphatase 157 H (35-129) units/L Lactate Dehydrogenase 440 H (91-180) units/L Albumin 3.5 L (3.9-5) g/dL 05/09/19 Range/Units Unknown WBC 17.1 H (4.5-11.0) K/mm3 RBC 2.75 L (3.65-5.03) M/mm3 Hgb 8.4 L (11.8-15.2) gm/dl Hct 24.7 L (35.5-45.6) % MCHC (32-34) % RDW 19.7 H (13.2-15.2) % Lymph % (Auto) 12.4 L (13.4-35.0) % [place] % (Auto) 14.1 H (0.0-7.3) % [place] # 2.4 H (0.0-0.8) K/mm3 Eos # (0.0-0.4) K/mm3 Seg Neutrophils % 71.1 H (40.0-70.0) % Seg Neutrophils # 12.2 H (1.8-7.7) K/mm3 Percent Retic (0.78-2.58) % Sodium (137-145) mmol/L Creatinine (0.8-1.5) mg/dL Glucose (75-100) mg/dL Iron (49-181) ug/dL TIBC (250-450) mcg/dL Total Bilirubin (0.1-1.2) mg/dL AST (5-40) units/L ALT (7-56) units/L Alkaline Phosphatase (35-129) units/L Lactate Dehydrogenase (91-180) units/L Albumin (3.9-5) g/dL Medications & Allergies - Medications Allergies/Adverse Reactions: Allergies ceftriaxone sodium [From Rocephin] Allergy (Verified 03/09/18 07:35) Unknown meperidine HCl [From Demerol] Allergy (Verified 03/09/18 07:35) Unknown Home Medications: Home Medications Medication Instructions Recorded Confirmed Last Taken Type Folic Acid [Folvite] 1 mg PO QDAY #30 tablet 07/26/17 05/06/19 05/09/18 Rx Morphine ER [Ms Contin ER] 60 mg PO Q12H 03/09/18 05/06/19 05/09/18 History Oxycodone HCl [oxyCODONE] 10 mg PO Q8H 03/09/18 05/06/19 05/09/18 History Carvedilol [Coreg] 25 mg PO BID 05/10/18 05/06/19 09/25/18 History Hydrea 1,000 mg PO DAILY 09/27/18 05/06/19 Unknown History Active Medications: Generic Name Dose Route Start Last Admin Trade Name Freq PRN Reason Stop Dose Admin Acetaminophen 650 mg 05/09/19 04:54 05/09/19 05:08 Tylenol PO 650 mg Q4H PRN Administration Pain, Mild (1-3), temp>100.5 Bisacodyl 10 mg 05/06/19 02:47 Dulcolax [place] QDAY PRN Constipation unrelieved by MOM Carvedilol 25 mg 05/06/19 10:00 05/09/19 10:18 Coreg PO 25 mg BID WAYNE Administration Diphenhydramine HCl 25 mg 05/06/19 05:07 05/09/19 08:43 Benadryl IV 25 mg Q6H PRN Administration Itching Folic Acid 1 mg 05/06/19 10:00 05/09/19 10:09 Folvite PO 1 mg QDAY WAYNE Administration Hydromorphone HCl 2 mg 05/06/19 15:42 05/09/19 08:43 Dilaudid IV 2 mg Q3H PRN Administration Pain , Severe (7-10) Hydroxyurea 1,000 mg 05/06/19 10:00 05/09/19 10:12 Hydrea PO 1,000 mg DAILY WAYNE Administration Levofloxacin/Dextrose 750 mg in 150 mls @ 100 mls/hr 05/06/19 03:13 05/09/19 10:10 Levaquin 750mg/150ml IV 100 mls/hr Q24HR WAYNE Administration Protocol Aztreonam 1 gm in 50 mls @ 50 mls/hr 05/06/19 06:59 05/09/19 05:19 Azactam/Ns 1 Gm/50 Ml IV 50 mls/hr Q8HR WAYNE Administration Protocol Dextrose/Sodium Chloride 1,000 mls @ 175 mls/hr 05/06/19 16:00 05/09/19 07:40 D5ns 0.2% IV 175 mls/hr DIRECT WAYNE Administration Ketorolac Tromethamine 30 mg 05/08/19 19:05 Toradol IV 05/13/19 19:04 Q6H PRN Pain, Moderate (4-6) Magnesium Hydroxide 30 ml 05/06/19 02:47 Milk Of Magnesia PO Q4H PRN Constipation Morphine Sulfate 30 mg 05/06/19 06:00 05/09/19 05:08 Ms Contin Er PO 30 mg Q8HR [facility] Administration Multivitamins 1 each 05/06/19 10:00 05/09/19 10:09 Theragran Tab PO 1 each QDAY [facility] Administration Mupirocin 1 applic 05/08/19 22:00 05/09/19 10:09 Bactroban 2% NS 1 applic BID [facility] Administration Ondansetron HCl 4 mg 05/06/19 02:47 Zofran IV Q4H PRN Nausea And Vomiting Senna 17.2 mg 05/06/19 22:00 05/08/19 22:14 Senokot PO 17.2 mg QHS [facility] Administration
--- NOTE | 2019-05-09 11:44 | Progress Note ---
Assessment and Plan Assessment and plan: --SIRS:Leukocytosis: Emperic antibiotics,f/u cultures -- Severe sickle cell anemia: 2 units PRBC transfusion Hemoglobin improved from 5.6 to 8.4 Monitor H /H and Transfuse additional as needed --Sickle cell crisis; O2,IV fluids,pain medications Retic count 17.5, supportive care hematology following --Transaminitis; secondary to underlying sickle cell disease Monitor closely, GI evaluation if needed --DVT prophylaxis: SCD Plan of care d/w patient and his nurse Hepatology evaluation and recommendations noted and appreciated Disposition; continue inpatient management Possible discharge when in patient's leukocytosis Symptoms and retic count improve Hematology evaluation and recommendations noted and appreciated History Interval history: Patient remains critically ill With worsening leukocytosis, high reticulocyte count Alert awake oriented Vital signs reviewed Hospitalist Physical - Constitutional Vitals: Temp Pulse Resp BP Pulse Ox 102.5 F H 83 18 110/60 97 05/09/19 04:50 05/09/19 10:18 05/09/19 06:08 05/09/19 10:18 05/09/19 10:00 General appearance: Present: mild distress, well-nourished - EENT Eyes: Present: PERRL, EOM intact - Neck Neck: Present: supple, normal ROM - Respiratory Respiratory effort: normal Respiratory: bilateral: diminished, negative: rales, rhonchi, wheezing - Cardiovascular Rhythm: regular Heart Sounds: Present: S1 & S2 - Extremities Extremities: no ischemia, No edema - Abdominal General gastrointestinal: soft, non-tender, non-distended, normal bowel sounds - Integumentary Integumentary: Present: clear, warm - Psychiatric Psychiatric: appropriate mood/affect, cooperative - Neurologic Neurologic: CNII-XII intact, moves all extremities Results - Labs CBC & Chem 7: 05/09/19 Unknown 05/09/19 Unknown Labs: Laboratory Last Values WBC 17.1 K/mm3 (4.5-11.0) H 05/09/19 Unknown RBC 2.75 M/mm3 (3.65-5.03) L 05/09/19 Unknown Hgb 8.4 gm/dl (11.8-15.2) L 05/09/19 Unknown Hct 24.7 % (35.5-45.6) L 05/09/19 Unknown MCV 90 fl (84-94) 05/09/19 Unknown MCH 31 pg (28-32) 05/09/19 Unknown MCHC 34 % (32-34) 05/09/19 Unknown RDW 19.7 % (13.2-15.2) H 05/09/19 Unknown Plt Count 279 K/mm3 (140-440) 05/09/19 Unknown Lymph % (Auto) 12.4 % (13.4-35.0) L 05/09/19 Unknown [place] % (Auto) 14.1 % (0.0-7.3) H 05/09/19 Unknown Eos % (Auto) 1.9 % (0.0-4.3) 05/09/19 Unknown Baso % (Auto) 0.5 % (0.0-1.8) 05/09/19 Unknown Lymph # 2.1 K/mm3 (1.2-5.4) 05/09/19 Unknown [place] # 2.4 K/mm3 (0.0-0.8) H 05/09/19 Unknown Eos # 0.3 K/mm3 (0.0-0.4) 05/09/19 Unknown Baso # 0.1 K/mm3 (0.0-0.1) 05/09/19 Unknown Add Manual Diff Complete 05/07/19 06:26 Total Counted 100 05/07/19 06:26 Seg Neutrophils % 71.1 % (40.0-70.0) H 05/09/19 Unknown Seg Neuts % (Manual) 70.0 % (40.0-70.0) 05/07/19 06:26 Band Neutrophils % 2.0 % 05/07/19 06:26 Lymphocytes % (Manual) 9.0 % (13.4-35.0) L 05/07/19 06:26 Reactive Lymphs % (Man) 4.0 % 05/07/19 06:26 Monocytes % (Manual) 12.0 % (0.0-7.3) H 05/07/19 06:26 Eosinophils % (Manual) 2.0 % (0.0-4.3) 05/07/19 06:26 Basophils % (Manual) 1.0 % (0.0-1.8) 05/07/19 06:26 Metamyelocytes % 0 % 05/07/19 06:26 Myelocytes % 0 % 05/07/19 06:26 Promyelocytes % 0 % 05/07/19 06:26 Blast Cells % 0 % 05/07/19 06:26 Nucleated RBC % 3.0 % (0.0-0.9) H 05/07/19 06:26 Seg Neutrophils # 12.2 K/mm3 (1.8-7.7) H 05/09/19 Unknown Seg Neutrophils # Man 12.4 K/mm3 (1.8-7.7) H 05/07/19 06:26 Band Neutrophils # 0.4 K/mm3 05/07/19 06:26 Lymphocytes # (Manual) 1.6 K/mm3 (1.2-5.4) 05/07/19 06:26 Abs React Lymphs (Man) 0.7 K/mm3 05/07/19 06:26 Monocytes # (Manual) 2.1 K/mm3 (0.0-0.8) H 05/07/19 06:26 Eosinophils # (Manual) 0.4 K/mm3 (0.0-0.4) 05/07/19 06:26 Basophils # (Manual) 0.2 K/mm3 (0.0-0.1) H 05/07/19 06:26 Metamyelocytes # 0.0 K/mm3 05/07/19 06:26 Myelocytes # 0.0 K/mm3 05/07/19 06:26 Promyelocytes # 0.0 K/mm3 05/07/19 06:26 Blast Cells # 0.0 K/mm3 05/07/19 06:26 WBC Morphology Not Reportable 05/07/19 06:26 Hypersegmented Neuts Not Reportable 05/07/19 06:26 Hyposegmented Neuts Not Reportable 05/07/19 06:26 Hypogranular Neuts Not Reportable 05/07/19 06:26 Smudge Cells Not Reportable 05/07/19 06:26 Toxic Granulation Not Reportable 05/07/19 06:26 Toxic Vacuolation Not Reportable 05/07/19 06:26 Dohle Bodies Not Reportable 05/07/19 06:26 Pelger-Huet Anomaly Not Reportable 05/07/19 06:26 Christian Rods Not Reportable 05/07/19 06:26 Platelet Estimate Consistent w auto 05/07/19 06:26 Clumped Platelets Not Reportable 05/07/19 06:26 Plt Clumps, EDTA Not Reportable 05/07/19 06:26 Large Platelets Not Reportable 05/07/19 06:26 Giant Platelets Few 05/07/19 06:26 Platelet Satelliting Not Reportable 05/07/19 06:26 Plt Morphology Comment Not Reportable 05/07/19 06:26 RBC Morphology Not Reportable 05/07/19 06:26 Dimorphic RBCs Not Reportable 05/07/19 06:26 Polychromasia 1+ 05/07/19 06:26 Hypochromasia 1+ 05/07/19 06:26 Poikilocytosis Not Reportable 05/07/19 06:26 Anisocytosis Not Reportable 05/07/19 06:26 Microcytosis Not Reportable 05/07/19 06:26 Macrocytosis Not Reportable 05/07/19 06:26 Spherocytes Not Reportable 05/07/19 06:26 Pappenheimer Bodies Not Reportable 05/07/19 06:26 Sickle Cells 1+ 05/07/19 06:26 Target Cells 1+ 05/07/19 06:26 Tear Drop Cells Not Reportable 05/07/19 06:26 Ovalocytes Not Reportable 05/07/19 06:26 Helmet Cells Not Reportable 05/07/19 06:26 [place] Bodies Not Reportable 05/07/19 06:26 [place] Rings Not Reportable 05/07/19 06:26 [place] Cells Not Reportable 05/07/19 06:26 Bite Cells Not Reportable 05/07/19 06:26 Crenated Cell Not Reportable 05/07/19 06:26 Elliptocytes Not Reportable 05/07/19 06:26 Acanthocytes (Spur) Not Reportable 05/07/19 06:26 Rouleaux Not Reportable 05/07/19 06:26 Hemoglobin C Crystals Not Reportable 05/07/19 06:26 Schistocytes Not Reportable 05/07/19 06:26 Malaria parasites Not Reportable 05/07/19 06:26 Percent Retic 13.96 % (0.78-2.58) H 05/08/19 18:18 You Bodies Not Reportable 05/07/19 06:26 Hem Pathologist Commnt No 05/07/19 06:26 Sodium 134 mmol/L (137-145) L 05/09/19 Unknown Potassium 4.4 mmol/L (3.6-5.0) 05/09/19 Unknown Chloride 98.0 mmol/L (98-107) 05/09/19 Unknown Carbon Dioxide 24 mmol/L (22-30) 05/09/19 Unknown Anion Gap 16 mmol/L 05/09/19 Unknown BUN 10 mg/dL (9-20) 05/09/19 Unknown Creatinine 0.3 mg/dL (0.8-1.5) L 05/09/19 Unknown Estimated GFR > 60 ml/min 05/09/19 Unknown BUN/Creatinine Ratio 33 % 05/09/19 Unknown Glucose 104 mg/dL (75-100) H 05/09/19 Unknown Calcium 8.6 mg/dL (8.4-10.2) 05/09/19 Unknown Iron 38 ug/dL (49-181) L 05/09/19 Unknown TIBC 144 mcg/dL (250-450) L 05/09/19 Unknown Ferritin 7995.0 ng/mL (13.0-400.0) H 05/07/19 06:26 Total Bilirubin 4.60 mg/dL (0.1-1.2) H 05/09/19 Unknown Direct Bilirubin 1.3 mg/dL (0-0.2) H 05/06/19 04:12 Indirect Bilirubin 3.1 mg/dL 05/06/19 04:12 AST 119 units/L (5-40) H 05/09/19 Unknown ALT 70 units/L (7-56) H 05/09/19 Unknown Alkaline Phosphatase 157 units/L (35-129) H 05/09/19 Unknown Lactate Dehydrogenase 440 units/L (91-180) H 05/08/19 06:54 Total Protein 7.0 g/dL (6.3-8.2) 05/09/19 Unknown Albumin 3.5 g/dL (3.9-5) L 05/09/19 Unknown Albumin/Globulin Ratio 1.0 % 05/09/19 Unknown Urine Color Yellow (Yellow) 05/06/19 09:17 Urine Turbidity Clear (Clear) 05/06/19 09:17 Urine pH 6.0 (5.0-7.0) 05/06/19 09:17 Ur Specific [place] 1.006 (1.003-1.030) 05/06/19 09:17 Urine Protein <15 mg/dl mg/dL (Negative) 05/06/19 09:17 Urine Glucose (UA) Neg mg/dL (Negative) 05/06/19 09:17 Urine Ketones Neg mg/dL (Negative) 05/06/19 09:17 Urine Blood Sm (Negative) 05/06/19 09:17 Urine Nitrite Neg (Negative) 05/06/19 09:17 Urine Bilirubin Neg (Negative) 05/06/19 09:17 Urine Urobilinogen 4.0 mg/dL (<2.0) 05/06/19 09:17 Ur Leukocyte Esterase Neg (Negative) 05/06/19 09:17 Urine WBC (Auto) < 1.0 /HPF (0.0-6.0) 05/06/19 09:17 Urine RBC (Auto) 2.0 /HPF (0.0-6.0) 05/06/19 09:17 Blood Type O POSITIVE 05/06/19 04:47 Antibody Screen Negative 05/06/19 04:47 Crossmatch See Detail 05/06/19 04:47 Active Medications - Current Medications Current Medications: Generic Name Dose Route Start Last Admin Trade Name Freq PRN Reason Stop Dose Admin Acetaminophen 650 mg 05/09/19 04:54 05/09/19 05:08 Tylenol PO 650 mg Q4H PRN Administration Pain, Mild (1-3), temp>100.5 Bisacodyl 10 mg 05/06/19 02:47 Dulcolax DE QDAY PRN Constipation unrelieved by MOM Carvedilol 25 mg 05/06/19 10:00 05/09/19 10:18 Coreg PO 25 mg BID WAYNE Administration Diphenhydramine HCl 25 mg 05/06/19 05:07 05/09/19 08:43 Benadryl IV 25 mg Q6H PRN Administration Itching Folic Acid 1 mg 05/06/19 10:00 05/09/19 10:09 Folvite PO 1 mg QDAY WAYNE Administration Hydromorphone HCl 2 mg 05/06/19 15:42 05/09/19 08:43 Dilaudid IV 2 mg Q3H PRN Administration Pain , Severe (7-10) Hydroxyurea 1,000 mg 05/06/19 10:00 05/09/19 10:12 Hydrea PO 1,000 mg DAILY WAYNE Administration Levofloxacin/Dextrose 750 mg in 150 mls @ 100 mls/hr 05/06/19 03:13 05/09/19 10:10 Levaquin 750mg/150ml IV 05/10/19 12:00 100 mls/hr Q24HR WAYNE Administration Protocol Aztreonam 1 gm in 50 mls @ 50 mls/hr 05/06/19 06:59 05/09/19 05:19 Azactam/Ns 1 Gm/50 Ml IV 50 mls/hr Q8HR WAYNE Administration Protocol Dextrose/Sodium Chloride 1,000 mls @ 175 mls/hr 05/06/19 16:00 05/09/19 07:40 D5ns 0.2% IV 175 mls/hr DIRECT WAYNE Administration Deferoxamine Mesylate 3,000 mg 250 mls @ 32 mls/hr 05/09/19 13:00 / Sodium Chloride IV 05/11/19 17:49 Q24HR WAYNE Ketorolac Tromethamine 30 mg 05/08/19 19:05 Toradol IV 05/13/19 19:04 Q6H PRN Pain, Moderate (4-6) Magnesium Hydroxide 30 ml 05/06/19 02:47 Milk Of Magnesia PO Q4H PRN Constipation Morphine Sulfate 30 mg 05/06/19 06:00 05/09/19 05:08 Ms Contin Er PO 30 mg Q8HR WAYNE Administration Multivitamins 1 each 05/06/19 10:00 05/09/19 10:09 Theragran Tab PO 1 each QDAY WAYNE Administration Mupirocin 1 applic 05/08/19 22:00 05/09/19 10:09 Bactroban 2% NS 1 applic BID WAYNE Administration Ondansetron HCl 4 mg 05/06/19 02:47 Zofran IV Q4H PRN Nausea And Vomiting Senna 17.2 mg 05/06/19 22:00 05/08/19 22:14 Senokot PO 17.2 mg QHS WAYNE Administration Nutrition/Malnutrition Assess - Dietary Evaluation Nutrition/Malnutrition Findings: Nutrition Notes Start: 05/06/19 09:09 Freq: Status: Active Protocol: Document 05/08/19 12:43 RM (Rec: 05/08/19 12:51 RM [id number]) Nutrition Notes Initial or Follow up Reassessment Current Diagnosis Hypertension Other Pertinent Diagnosis Sickle Cell anemia Current Diet Regular w/Ensure Enlive [place] TID Labs/Tests Reviewed Pertinent Medications Reviewed Height 5 ft 6 in Weight 60.3 kg [place] Body Weight (kg) 64.54 BMI 21.4 Subjective/Other Information Pt stated that his appetite is good and that he eats most or all of his meals. Also stated that he drinks the Ensure Enlive. Percent of energy/protein needs met: 159%/160% Burn Absent Trauma Absent Minimum of two criteria Yes #1 Nutrition Diagnosis Malnutrition Diagnosis Progress(for reassessment Continues documentation) Is patient on ventilator? No Is Patient Ambulatory and/or Out of Bed Yes REE-([facility]-ambulatory/OOB) [ 1944.475 [id number]] Calculation Used for Recommendations [facility] Additional Notes Protein needs are 68-85g (1.2- 1.5g/kg) Fluid needs are 1ml/kcal Nutrition Intervention Change Diet Order: Continue Add Supplement/Snack (indicate name/kcal Ensure Enlive [place] BID /protein ) Provides kCal: 700 Provides Protein (gm) 40 Goal #1 Continue to meet at least 75% of calorie and protein needs via PO and ONS intakes Goal #2 Wt maintenance Anticipated Discharge Needs: Regular diet with ONS BID-TID Follow-Up By: 05/15/19 Additional Comments Follow for PO and ONS intakes
[2019-05-09] MEDS: Desferal 3,000 MG in NACL 0.9% 250ML 250 ML IV SCH (15:09)
[2019-05-09] MEDS: SENOKOT PO SCH (22:01)
[2019-05-10] MEDS: DILAUDID IV PRN ×8 (01:07→23:44)
[2019-05-10] MEDS: D5NS 0.2% 1,000 ML IV SCH ×2 (04:18→10:12)
[2019-05-10] MEDS: BENADRYL IV PRN ×4 (04:20→23:44)
[2019-05-10] MEDS: MS CONTIN ER PO SCH ×3 (06:23→22:45)
[2019-05-10] MEDS: AZACTAM/NS 1 GM/50 ML 1 GM/50 ML VIAL IV SCH ×3 (06:24→23:29)
--- NOTE | 2019-05-10 08:14 | Progress Note ---
Assessment and Plan Assessment and plan: --Atypical Multifocal pneumonia:present on admission continue antibiotics,f/u cultures and supportive care Minimal improvement, follow-up chest x-ray ID consult --Sepsis:Leukocytosis:sec to pneumonia on Aztreonem ,Levaquin,f/u cultures, consult ID -- Severe sickle cell anemia: 2 units PRBC transfusion Hemoglobin improved from 5.6 to 8.4 Monitor H /H and Transfuse additional as needed --Sickle cell crisis; O2,IV fluids,pain medications Retic count 17.5, supportive care hematology following --Transaminitis; secondary to underlying sickle cell disease Monitor closely, GI evaluation if needed --DVT prophylaxis: SCD Plan of care d/w patient and his nurse Hepatology evaluation and recommendations noted and appreciated Disposition; continue inpatient management Possible discharge when in patient's leukocytosis Symptoms and retic count improve Hematology evaluation and recommendations noted and appreciated History Interval history: Assessment exam and medical records reviewed patient complains of mild cough Also feels very tired Vital signs noted Hospitalist Physical - Constitutional Vitals: Temp Pulse Resp BP Pulse Ox 99.0 F 76 18 106/53 98 05/10/19 04:55 05/10/19 04:55 05/10/19 06:23 05/10/19 04:55 05/10/19 05:41 General appearance: Present: no acute distress, well-nourished - EENT Eyes: Present: PERRL, EOM intact - Neck Neck: Present: supple, normal ROM - Respiratory Respiratory effort: normal Respiratory: bilateral: diminished, negative: rales, rhonchi, wheezing - Cardiovascular Rhythm: regular Heart Sounds: Present: S1 & S2 - Extremities Extremities: no ischemia, No edema - Abdominal General gastrointestinal: soft, non-tender, non-distended, normal bowel sounds - Integumentary Integumentary: Present: clear, warm - Psychiatric Psychiatric: appropriate mood/affect, cooperative - Neurologic Neurologic: CNII-XII intact, moves all extremities Results - Labs CBC & Chem 7: 05/09/19 Unknown 05/09/19 Unknown Labs: Laboratory Last Values WBC 17.1 K/mm3 (4.5-11.0) H 05/09/19 Unknown RBC 2.75 M/mm3 (3.65-5.03) L 05/09/19 Unknown Hgb 8.4 gm/dl (11.8-15.2) L 05/09/19 Unknown Hct 24.7 % (35.5-45.6) L 05/09/19 Unknown MCV 90 fl (84-94) 05/09/19 Unknown MCH 31 pg (28-32) 05/09/19 Unknown MCHC 34 % (32-34) 05/09/19 Unknown RDW 19.7 % (13.2-15.2) H 05/09/19 Unknown Plt Count 279 K/mm3 (140-440) 05/09/19 Unknown Lymph % (Auto) 12.4 % (13.4-35.0) L 05/09/19 Unknown [place] % (Auto) 14.1 % (0.0-7.3) H 05/09/19 Unknown Eos % (Auto) 1.9 % (0.0-4.3) 05/09/19 Unknown Baso % (Auto) 0.5 % (0.0-1.8) 05/09/19 Unknown Lymph # 2.1 K/mm3 (1.2-5.4) 05/09/19 Unknown [place] # 2.4 K/mm3 (0.0-0.8) H 05/09/19 Unknown Eos # 0.3 K/mm3 (0.0-0.4) 05/09/19 Unknown Baso # 0.1 K/mm3 (0.0-0.1) 05/09/19 Unknown Add Manual Diff Complete 05/07/19 06:26 Total Counted 100 05/07/19 06:26 Seg Neutrophils % 71.1 % (40.0-70.0) H 05/09/19 Unknown Seg Neuts % (Manual) 70.0 % (40.0-70.0) 05/07/19 06:26 Band Neutrophils % 2.0 % 05/07/19 06:26 Lymphocytes % (Manual) 9.0 % (13.4-35.0) L 05/07/19 06:26 Reactive Lymphs % (Man) 4.0 % 05/07/19 06:26 Monocytes % (Manual) 12.0 % (0.0-7.3) H 05/07/19 06:26 Eosinophils % (Manual) 2.0 % (0.0-4.3) 05/07/19 06:26 Basophils % (Manual) 1.0 % (0.0-1.8) 05/07/19 06:26 Metamyelocytes % 0 % 05/07/19 06:26 Myelocytes % 0 % 05/07/19 06:26 Promyelocytes % 0 % 05/07/19 06:26 Blast Cells % 0 % 05/07/19 06:26 Nucleated RBC % 3.0 % (0.0-0.9) H 05/07/19 06:26 Seg Neutrophils # 12.2 K/mm3 (1.8-7.7) H 05/09/19 Unknown Seg Neutrophils # Man 12.4 K/mm3 (1.8-7.7) H 05/07/19 06:26 Band Neutrophils # 0.4 K/mm3 05/07/19 06:26 Lymphocytes # (Manual) 1.6 K/mm3 (1.2-5.4) 05/07/19 06:26 Abs React Lymphs (Man) 0.7 K/mm3 05/07/19 06:26 Monocytes # (Manual) 2.1 K/mm3 (0.0-0.8) H 05/07/19 06:26 Eosinophils # (Manual) 0.4 K/mm3 (0.0-0.4) 05/07/19 06:26 Basophils # (Manual) 0.2 K/mm3 (0.0-0.1) H 05/07/19 06:26 Metamyelocytes # 0.0 K/mm3 05/07/19 06:26 Myelocytes # 0.0 K/mm3 05/07/19 06:26 Promyelocytes # 0.0 K/mm3 05/07/19 06:26 Blast Cells # 0.0 K/mm3 05/07/19 06:26 WBC Morphology Not Reportable 05/07/19 06:26 Hypersegmented Neuts Not Reportable 05/07/19 06:26 Hyposegmented Neuts Not Reportable 05/07/19 06:26 Hypogranular Neuts Not Reportable 05/07/19 06:26 Smudge Cells Not Reportable 05/07/19 06:26 Toxic Granulation Not Reportable 05/07/19 06:26 Toxic Vacuolation Not Reportable 05/07/19 06:26 Dohle Bodies Not Reportable 05/07/19 06:26 Pelger-Huet Anomaly Not Reportable 05/07/19 06:26 Christian Rods Not Reportable 05/07/19 06:26 Platelet Estimate Consistent w auto 05/07/19 06:26 Clumped Platelets Not Reportable 05/07/19 06:26 Plt Clumps, EDTA Not Reportable 05/07/19 06:26 Large Platelets Not Reportable 05/07/19 06:26 Giant Platelets Few 05/07/19 06:26 Platelet Satelliting Not Reportable 05/07/19 06:26 Plt Morphology Comment Not Reportable 05/07/19 06:26 RBC Morphology Not Reportable 05/07/19 06:26 Dimorphic RBCs Not Reportable 05/07/19 06:26 Polychromasia 1+ 05/07/19 06:26 Hypochromasia 1+ 05/07/19 06:26 Poikilocytosis Not Reportable 05/07/19 06:26 Anisocytosis Not Reportable 05/07/19 06:26 Microcytosis Not Reportable 05/07/19 06:26 Macrocytosis Not Reportable 05/07/19 06:26 Spherocytes Not Reportable 05/07/19 06:26 Pappenheimer Bodies Not Reportable 05/07/19 06:26 Sickle Cells 1+ 05/07/19 06:26 Target Cells 1+ 05/07/19 06:26 Tear Drop Cells Not Reportable 05/07/19 06:26 Ovalocytes Not Reportable 05/07/19 06:26 Helmet Cells Not Reportable 05/07/19 06:26 [place] Bodies Not Reportable 05/07/19 06:26 [place] Rings Not Reportable 05/07/19 06:26 [place] Cells Not Reportable 05/07/19 06:26 Bite Cells Not Reportable 05/07/19 06:26 Crenated Cell Not Reportable 05/07/19 06:26 Elliptocytes Not Reportable 05/07/19 06:26 Acanthocytes (Spur) Not Reportable 05/07/19 06:26 Rouleaux Not Reportable 05/07/19 06:26 Hemoglobin C Crystals Not Reportable 05/07/19 06:26 Schistocytes Not Reportable 05/07/19 06:26 Malaria parasites Not Reportable 05/07/19 06:26 Percent Retic 13.96 % (0.78-2.58) H 05/08/19 18:18 You Bodies Not Reportable 05/07/19 06:26 Hem Pathologist Commnt No 05/07/19 06:26 Sodium 134 mmol/L (137-145) L 05/09/19 Unknown Potassium 4.4 mmol/L (3.6-5.0) 05/09/19 Unknown Chloride 98.0 mmol/L (98-107) 05/09/19 Unknown Carbon Dioxide 24 mmol/L (22-30) 05/09/19 Unknown Anion Gap 16 mmol/L 05/09/19 Unknown BUN 10 mg/dL (9-20) 05/09/19 Unknown Creatinine 0.3 mg/dL (0.8-1.5) L 05/09/19 Unknown Estimated GFR > 60 ml/min 05/09/19 Unknown BUN/Creatinine Ratio 33 % 05/09/19 Unknown Glucose 104 mg/dL (75-100) H 05/09/19 Unknown Calcium 8.6 mg/dL (8.4-10.2) 05/09/19 Unknown Iron 38 ug/dL (49-181) L 05/09/19 Unknown TIBC 144 mcg/dL (250-450) L 05/09/19 Unknown Ferritin 7995.0 ng/mL (13.0-400.0) H 05/07/19 06:26 Total Bilirubin 4.60 mg/dL (0.1-1.2) H 05/09/19 Unknown Direct Bilirubin 1.3 mg/dL (0-0.2) H 05/06/19 04:12 Indirect Bilirubin 3.1 mg/dL 05/06/19 04:12 AST 119 units/L (5-40) H 05/09/19 Unknown ALT 70 units/L (7-56) H 05/09/19 Unknown Alkaline Phosphatase 157 units/L (35-129) H 05/09/19 Unknown Lactate Dehydrogenase 440 units/L (91-180) H 05/08/19 06:54 Total Protein 7.0 g/dL (6.3-8.2) 05/09/19 Unknown Albumin 3.5 g/dL (3.9-5) L 05/09/19 Unknown Albumin/Globulin Ratio 1.0 % 05/09/19 Unknown Urine Color Yellow (Yellow) 05/06/19 09:17 Urine Turbidity Clear (Clear) 05/06/19 09:17 Urine pH 6.0 (5.0-7.0) 05/06/19 09:17 Ur Specific [place] 1.006 (1.003-1.030) 05/06/19 09:17 Urine Protein <15 mg/dl mg/dL (Negative) 05/06/19 09:17 Urine Glucose (UA) Neg mg/dL (Negative) 05/06/19 09:17 Urine Ketones Neg mg/dL (Negative) 05/06/19 09:17 Urine Blood Sm (Negative) 05/06/19 09:17 Urine Nitrite Neg (Negative) 05/06/19 09:17 Urine Bilirubin Neg (Negative) 05/06/19 09:17 Urine Urobilinogen 4.0 mg/dL (<2.0) 05/06/19 09:17 Ur Leukocyte Esterase Neg (Negative) 05/06/19 09:17 Urine WBC (Auto) < 1.0 /HPF (0.0-6.0) 05/06/19 09:17 Urine RBC (Auto) 2.0 /HPF (0.0-6.0) 05/06/19 09:17 Blood Type O POSITIVE 05/06/19 04:47 Antibody Screen Negative 05/06/19 04:47 Crossmatch See Detail 05/06/19 04:47 Active Medications - Current Medications Current Medications: Generic Name Dose Route Start Last Admin Trade Name Freq PRN Reason Stop Dose Admin Acetaminophen 650 mg 05/09/19 04:54 05/09/19 05:08 Tylenol PO 650 mg Q4H PRN Administration Pain, Mild (1-3), temp>100.5 Bisacodyl 10 mg 05/06/19 02:47 Dulcolax [place] QDAY PRN Constipation unrelieved by MOM Carvedilol 25 mg 05/06/19 10:00 05/09/19 22:03 Coreg PO 25 mg BID WANYE Administration Diphenhydramine HCl 25 mg 05/06/19 05:07 05/10/19 04:20 Benadryl IV 25 mg Q6H PRN Administration Itching Folic Acid 1 mg 05/06/19 10:00 05/09/19 10:09 Folvite PO 1 mg QDAY WAYNE Administration Hydromorphone HCl 2 mg 05/06/19 15:42 05/10/19 07:52 Dilaudid IV 2 mg Q3H PRN Administration Pain , Severe (7-10) Hydroxyurea 1,000 mg 05/06/19 10:00 05/09/19 10:12 Hydrea PO 1,000 mg DAILY WAYNE Administration Levofloxacin/Dextrose 750 mg in 150 mls @ 100 mls/hr 05/06/19 03:13 05/09/19 10:10 Levaquin 750mg/150ml IV 05/10/19 12:00 100 mls/hr Q24HR WAYNE Administration Protocol Aztreonam 1 gm in 50 mls @ 50 mls/hr 05/06/19 06:59 05/10/19 06:24 Azactam/Ns 1 Gm/50 Ml IV 50 mls/hr Q8HR WAYNE Administration Protocol Dextrose/Sodium Chloride 1,000 mls @ 175 mls/hr 05/06/19 16:00 05/10/19 04:18 D5ns 0.2% IV 175 mls/hr DIRECT WAYNE Administration Deferoxamine Mesylate 3,000 mg 250 mls @ 32 mls/hr 05/09/19 13:00 05/09/19 15:09 / Sodium Chloride IV 05/11/19 17:49 32 mls/hr Q24HR WAYNE Administration Ketorolac Tromethamine 30 mg 05/08/19 19:05 Toradol IV 05/13/19 19:04 Q6H PRN Pain, Moderate (4-6) Magnesium Hydroxide 30 ml 05/06/19 02:47 Milk Of Magnesia PO Q4H PRN Constipation Morphine Sulfate 30 mg 05/06/19 06:00 05/10/19 06:23 Ms Contin Er PO 30 mg Q8HR WAYNE Administration Multivitamins 1 each 05/06/19 10:00 05/09/19 10:09 Theragran Tab PO 1 each QDAY WAYNE Administration Mupirocin 1 applic 05/08/19 22:00 05/09/19 22:04 Bactroban 2% NS 1 applic BID WAYNE Administration Ondansetron HCl 4 mg 05/06/19 02:47 Zofran IV Q4H PRN Nausea And Vomiting Senna 17.2 mg 05/06/19 22:00 05/09/19 22:01 Senokot PO 17.2 mg QHS WAYNE Administration Nutrition/Malnutrition Assess - Dietary Evaluation Nutrition/Malnutrition Findings: Nutrition Notes Start: 05/06/19 09:09 Freq: Status: Active Protocol: Document 05/08/19 12:43 RM (Rec: 05/08/19 12:51 RM [id number]) Nutrition Notes Initial or Follow up Reassessment Current Diagnosis Hypertension Other Pertinent Diagnosis Sickle Cell anemia Current Diet Regular w/Ensure Enlive [facility] TID Labs/Tests Reviewed Pertinent Medications Reviewed Height 5 ft 6 in Weight 60.3 kg [place] Body Weight (kg) 64.54 BMI 21.4 Subjective/Other Information Pt stated that his appetite is good and that he eats most or all of his meals. Also stated that he drinks the Ensure Enlive. Percent of energy/protein needs met: 159%/160% Burn Absent Trauma Absent Minimum of two criteria Yes #1 Nutrition Diagnosis Malnutrition Diagnosis Progress(for reassessment Continues documentation) Is patient on ventilator? No Is Patient Ambulatory and/or Out of Bed Yes REE-([facility]-ambulatory/OOB) [ [id number] [id number]] Calculation Used for Recommendations [facility] Additional Notes Protein needs are 68-85g (1.2- 1.5g/kg) Fluid needs are 1ml/kcal Nutrition Intervention Change Diet Order: Continue Add Supplement/Snack (indicate name/kcal Ensure Enlive [facility] BID /protein ) Provides kCal: 700 Provides Protein (gm) 40 Goal #1 Continue to meet at least 75% of calorie and protein needs via PO and ONS intakes Goal #2 Wt maintenance Anticipated Discharge Needs: Regular diet with ONS BID-TID Follow-Up By: 05/15/19 Additional Comments Follow for PO and ONS intakes
[2019-05-10] MEDS ORDERED: LEVAQUIN 750MG/150ML 750 MG/150 ML BAG IV SCH (10:00)
--- NOTE | 2019-05-10 10:05 | XRay Report ---
CHEST 1 VIEW INDICATION: f/u pneumonia. COMPARISON: 05/06/2019 FINDINGS: Support devices: Right [id number] remains in good position. Heart: Stable mild cardiomegaly Lungs/Pleura: Patchy airspace densities in the lower lung zones remain. It is unclear if this represe nts infiltrates or segmental atelectasis. No large consolidation, pleural effusion or pneumothorax. Additional findings: None. IMPRESSION: No significant change. Signer Name: Jaylan Marie Jr, MD Signed: 05/10/2019 10:00 AM Workstation Name: [id number]
[2019-05-10] MEDS: Desferal 3,000 MG in NACL 0.9% 250ML 250 ML IV SCH (10:07)
[2019-05-10] MEDS: FOLVITE PO SCH (10:07)
[2019-05-10] MEDS: COREG PO SCH ×2 (10:07→22:45)
[2019-05-10] MEDS: THERAGRAN Tab PO SCH (10:07)
[2019-05-10] MEDS: HYDREA PO SCH (10:08)
[2019-05-10] MEDS: BACTROBAN 2% NS SCH ×2 (10:08→22:45)
[2019-05-10] MEDS: LEVAQUIN 750MG/150ML 750 MG/150 ML BAG IV SCH (11:54)
--- NOTE | 2019-05-10 16:27 | Consultation ---
History of Present Illness - Reason for Consult Consult date: 05/10/19 sepsis multifocal pneumonia Requesting physician: SHANNAN WILKINSON - History of Present Illness 33 y/o male with history of Sickle cell disease, splenectomy, right sided thoracic wall port, frequent hospital admissions for SCD crises admitted on 05/05 due to body aches mainly bilateral knee and hips. Denies cough, sputum production, SOB. In the ED, temp 99.1, HR 89 , R 16, BP 110/65. WBC 18. Hg 7.3. Plat 313. Creat 0.3. AST 154. ALT 84. AP 159. LDH 650. UA neg. Blood culture .05/06/2019 no growth so far. CXR patchy pulmonary opacities kenzie lobes. By 05/08 temp 101.7. ID consulted for further management. Review of Systems: General: no fever, chills, no malaise Cutaneous: no rash, pruritus Head: no headaches or injury Eyes: no changes in vision, eye pain, double vision Ears: no ear pain, ear discharge, ringing or hearing loss Nose: no nose bleeding, stuffiness Mouth & throat: no bleeding gums, no horseness, no dental problems, or swollen glands Neck: no pain, node enlargement/lumps, tyroid enlargement or tenderness Respiratory: no SOB, no cough, no MULLEN, wheezing, sputum, hemoptysis, pleuritic chest pain Cardiovascular: no chest pain, leg edema, cyanosis, MULLEN, orthopnea Musculoskeletal: +joint pains Gastrointestinal: no nausea, no vomiting, no hematemesis, diarrhea, constipation, melena, bright red blood in stools, fecal incontinence, jaundice Genitourinary/Reproductive: no frequent urination, dysuria, hematuria, incontinence Neurogical: no seizures, no headaches, no weakness, no paresthesias, no loss of speech or vision; no memory loss, no vertigo, no tremors, no numbness Psychiatric: stable mood; no excessive anxiety, sadness or moodiness Past History Past Medical History: anemia Past Surgical History: No surgical history Social history: , lives with family Family history: no significant family history Medications and Allergies Allergies Allergy/AdvReac Type Severity Reaction Status Date / Time ceftriaxone sodium Allergy Unknown Verified 03/09/18 07:35 [From Rocephin] meperidine HCl [From Demerol] Allergy Unknown Verified 03/09/18 07:35 Home Medications Medication Instructions Recorded Confirmed Last Taken Type Folic Acid [Folvite] 1 mg PO QDAY #30 tablet 07/26/17 05/06/19 05/09/18 Rx Morphine ER [Ms Contin ER] 60 mg PO Q12H 03/09/18 05/06/19 05/09/18 History Oxycodone HCl [oxyCODONE] 10 mg PO Q8H 03/09/18 05/06/19 05/09/18 History Carvedilol [Coreg] 25 mg PO BID 05/10/18 05/06/19 09/25/18 History Hydrea 1,000 mg PO DAILY 09/27/18 05/06/19 Unknown History Active Meds: Active Medications Acetaminophen (Tylenol) 650 mg PO Q4H PRN PRN Reason: Pain, Mild (1-3), temp>100.5 Last Admin: 05/09/19 05:08 Dose: 650 mg Documented by: Bisacodyl (Dulcolax) 10 mg [place] QDAY PRN PRN Reason: Constipation unrelieved by MOM Carvedilol (Coreg) 25 mg PO BID [facility] Last Admin: 05/10/19 10:07 Dose: 25 mg Documented by: Diphenhydramine HCl (Benadryl) 25 mg IV Q6H PRN PRN Reason: Itching Last Admin: 05/10/19 10:56 Dose: 25 mg Documented by: Folic Acid (Folvite) 1 mg PO QDAY [facility] Last Admin: 05/10/19 10:07 Dose: 1 mg Documented by: Hydromorphone HCl (Dilaudid) 2 mg IV Q3H PRN PRN Reason: Pain , Severe (7-10) Last Admin: 05/10/19 14:12 Dose: 2 mg Documented by: Hydroxyurea (Hydrea) 1,000 mg PO DAILY [facility] Last Admin: 05/10/19 10:08 Dose: 1,000 mg Documented by: Aztreonam (Azactam/Ns 1 Gm/50 Ml) 1 gm in 50 mls @ 50 mls/hr IV Q8HR [facility]; Carie col Last Admin: 05/10/19 14:12 Dose: 50 mls/hr Documented by: Dextrose/Sodium Chloride (D5ns 0.2%) 1,000 mls @ 175 mls/hr IV DIRECT [facility] Last Admin: 05/10/19 10:12 Dose: 175 mls/hr Documented by: Deferoxamine Mesylate 3,000 mg (/ Sodium Chloride) 250 mls @ 32 mls/hr IV Q24HR [facility] Stop: 05/11/19 17:49 Last Admin: 05/10/19 10:07 Dose: 32 mls/hr Documented by: Ketorolac Tromethamine (Toradol) 30 mg IV Q6H PRN PRN Reason: Pain, Moderate (4-6) Stop: 05/13/19 19:04 Levofloxacin (Levaquin) 750 mg PO DAILY [facility] Magnesium Hydroxide (Milk Of Magnesia) 30 ml PO Q4H PRN PRN Reason: Constipation Morphine Sulfate (Ms Contin Er) 30 mg PO Q8HR [facility] Last Admin: 05/10/19 15:25 Dose: 30 mg Documented by: Multivitamins (Theragran Tab) 1 each PO QDAY [facility] Last Admin: 05/10/19 10:07 Dose: 1 each Documented by: Mupirocin (Bactroban 2%) 1 applic NS BID [facility] Last Admin: 05/10/19 10:08 Dose: 1 applic Documented by: Ondansetron HCl (Zofran) 4 mg IV Q4H PRN PRN Reason: Nausea And Vomiting Senna (Senokot) 17.2 mg PO QHS [facility] Last Admin: 05/09/19 22:01 Dose: 17.2 mg Documented by: Physical Examination - Physical Exam Narrative exam: General appearance: Alert in NAD Eyes: anicteric sclerae, moist conjunctivae; no lid-lag; PERRLA HENT: Atraumatic; oropharynx clear with moist mucous membranes and no mucosal ulcerations/no oral thrush; normal hard and soft palate. Lungs: CTA, with normal respiratory effort and no intercostal retractions POrt ok CV: RRR no murmur Abdomen: Soft, non-tender; no masses or hepatosplenomegaly Extremities: no edema, no cyanosis Skin: No rash. Psych: Appropriate affect, alert and oriented to person, place and time. Neuro: alert and oriented x 3. Moving all extermities - Constitutional Vitals: Vital Signs Temp Pulse Resp BP Pulse Ox 99.7 F H 82 18 115/68 99 05/10/19 11:36 05/10/19 11:36 05/10/19 11:36 05/10/19 11:36 05/10/19 11:36 Temperature -Last 24 Hours Temperature 99.7 F Temperature 99.0 F Temperature 100.8 F Temperature 99.3 F Results - Labs CBC & Chem 7: 05/09/19 Unknown 05/09/19 Unknown Assessment and Plan Cultures: Blood culture .05/06/2019 no growth so far Assessment: 33 y/o male with history of Sickle cell disease, splenectomy, right sided thorac ic wall port, frequent hospital admissions for SCD crises admitted on 05/05 due to body aches mainly bilateral knee and hips: Sepsis: not present on admission with fever, tachycardia; source HAP HAP vs CAP: recently admitted in [place] SCD crisis Elevated LFTs Penicillin allergy Recommendations: continue aztreonam and levaquin add vancomycin follow blood cx Will follow. Rita Hatch MD Infectious Diseases [employer] [facility] M [phone] O [phone]
--- NOTE | 2019-05-10 18:23 | Progress Note ---
Assessment and Plan - Patient Problems (1) Sickle cell pain crisis Current Visit: Yes Status: Acute Plan to address problem: pain control, supportive care. (2) Acute hemolytic anemia Current Visit: No Status: Acute Plan to address problem: Transfusion replacement. (3) Dehydration Current Visit: Yes Status: Acute Plan to address problem: Hydration. (4) Iron overload due to repeated red blood cell transfusions Current Visit: Yes Status: Chronic Plan to address problem: monitor iron level., and tx if needed. Subjective Date of service: 05/10/19 Interval history: Patient seen/examined, resting in bed, spiked fever last night, better now , with tylenol. Labs reviewed, iron, and WBC high, will try DESF tx. He will continue with IV ABX, cultures still negative, so far.If continue to spike feve r, may add vanc. Patient seen/examined, resting in bed,labs reviewed, case d/w patient. [place] from ID/co reviewed. I seriously doubt , if patient has sepsis. the leukocytosis, may very well be due to crisis, and the elevated LLFTs are clearly due to Iron over load,, and in part, hemolytic process. which is chronic.He will continue with Desferoamine.the CXR findings, is consistent with sickle cell crisis chest. findings. Objective - Constitutional Vitals: Vital Signs - 12hr 05/10/19 05/10/19 05/10/19 06:23 09:45 11:36 Temperature 99.7 F H Pulse Rate 82 Respiratory 18 18 Rate Blood Pressure 115/68 O2 Sat by Pulse 100 99 Oximetry 05/10/19 17:47 Temperature 99.2 F Pulse Rate 78 Respiratory 16 Rate Blood Pressure 111/59 O2 Sat by Pulse 97 Oximetry General appearance: Present: mild distress, well-nourished - EENT Eyes: PERRL, EOM intact ENT: hearing intact, clear oral mucosa Ears: bilateral: normal - Neck Neck: supple, normal ROM - Respiratory Respiratory effort: normal Respiratory: bilateral: CTA - Breasts Breasts: deferred - Cardiovascular Rhythm: regular Heart Sounds: Present: S1 & S2. Absent: gallop, rub Extremities: pulses intact, No edema, normal color, Full ROM - Gastrointestinal General gastrointestinal: Present: soft, non-tender, non-distended, normal bowel sounds Rectal Exam: deferred - Genitourinary Male genitourinary: deferred - Integumentary Integumentary: clear, warm, dry - Musculoskeletal Musculoskeletal: 1, strength equal bilaterally - Neurologic Neurologic: moves all extremities - Psychiatric Psychiatric: memory intact, appropriate mood/affect, intact judgment & insight - Labs CBC & Chem 7: 05/09/19 Unknown 05/09/19 Unknown Labs: Abnormal lab results 05/09/19 Range/Units Unknown Ferritin > 20971.0 H (13.0-400.0) ng/mL Medications & Allergies - Medications Allergies/Adverse Reactions: Allergies ceftriaxone sodium [From Rocephin] Allergy (Verified 03/09/18 07:35) Unknown meperidine HCl [From Demerol] Allergy (Verified 03/09/18 07:35) Unknown Home Medications: Home Medications Medication Instructions Recorded Confirmed Last Taken Type Folic Acid [Folvite] 1 mg PO QDAY #30 tablet 07/26/17 05/06/19 05/09/18 Rx Morphine ER [Ms Contin ER] 60 mg PO Q12H 03/09/18 05/06/19 05/09/18 History Oxycodone HCl [oxyCODONE] 10 mg PO Q8H 03/09/18 05/06/19 05/09/18 History Carvedilol [Coreg] 25 mg PO BID 05/10/18 05/06/19 09/25/18 History Hydrea 1,000 mg PO DAILY 09/27/18 05/06/19 Unknown History Active Medications: Generic Name Dose Route Start Last Admin Trade Name Freq PRN Reason Stop Dose Admin Acetaminophen 650 mg 05/09/19 04:54 05/09/19 05:08 Tylenol PO 650 mg Q4H PRN Administration Pain, Mild (1-3), temp>100.5 Bisacodyl 10 mg 05/06/19 02:47 Dulcolax [place] QDAY PRN Constipation unrelieved by MOM Carvedilol 25 mg 05/06/19 10:00 05/10/19 10:07 Coreg PO 25 mg BID [facility] Administration Diphenhydramine HCl 25 mg 05/06/19 05:07 05/10/19 17:12 Benadryl IV 25 mg Q6H PRN Administration Itching Folic Acid 1 mg 05/06/19 10:00 05/10/19 10:07 Folvite PO 1 mg QDAY [facility] Administration Hydromorphone HCl 2 mg 05/06/19 15:42 05/10/19 17:11 Dilaudid IV 2 mg Q3H PRN Administration Pain , Severe (7-10) Hydroxyurea 1,000 mg 05/06/19 10:00 05/10/19 10:08 Hydrea PO 1,000 mg DAILY [facility] Administration Aztreonam 1 gm in 50 mls @ 50 mls/hr 05/06/19 06:59 05/10/19 14:12 Azactam/Ns 1 Gm/50 Ml IV 50 mls/hr Q8HR [facility] Administration Protocol Dextrose/Sodium Chloride 1,000 mls @ 175 mls/hr 05/06/19 16:00 05/10/19 10:12 D5ns 0.2% IV 175 mls/hr DIRECT [facility] Administration Deferoxamine Mesylate 3,000 mg 250 mls @ 32 mls/hr 05/09/19 13:00 05/10/19 10:07 / Sodium Chloride IV 05/11/19 17:49 32 mls/hr Q24HR [facility] Administration Ketorolac Tromethamine 30 mg 05/08/19 19:05 Toradol IV 05/13/19 19:04 Q6H PRN Pain, Moderate (4-6) Levofloxacin 750 mg 05/11/19 10:00 Levaquin PO DAILY [facility] Magnesium Hydroxide 30 ml 05/06/19 02:47 Milk Of Magnesia PO Q4H PRN Constipation Morphine Sulfate 30 mg 05/06/19 06:00 05/10/19 15:25 Ms Contin Er PO 30 mg Q8HR [facility] Administration Multivitamins 1 each 05/06/19 10:00 05/10/19 10:07 Theragran Tab PO 1 each QDAY [facility] Administration Mupirocin 1 applic 05/08/19 22:00 05/10/19 10:08 Bactroban 2% NS 1 applic BID [facility] Administration Ondansetron HCl 4 mg 05/06/19 02:47 Zofran IV Q4H PRN Nausea And Vomiting Senna 17.2 mg 05/06/19 22:00 05/09/19 22:01 Senokot PO 17.2 mg QHS [facility] Administration
[2019-05-10] MEDS: SENOKOT PO SCH ×2 (22:45)
[2019-05-10] MEDS ORDERED: VANCOMYCIN/NS 1 GM/250 ML 1 GM/250 ML BAG IV SCH (23:00)
[2019-05-11] MEDS ORDERED: VANCOMYCIN 1,250 MG in NACL 0.9% 250ML 250 ML IV ONE
[2019-05-11] MEDS: D5NS 0.2% 1,000 ML IV SCH ×2 (01:06→21:27)
[2019-05-11] MEDS: DILAUDID IV PRN ×7 (02:49→22:42)
[2019-05-11 05:27] LABS: Hematocrit 22.4 % (35.5-45.6); Hemoglobin 7.7 gm/dl (11.8-15.2); Mean Corpuscular HGB Conc 35 % (32-34); Mean Corpuscular Volume 89 fl (84-94); Red Blood Count 2.51 M/mm3 (3.65-5.03); Red Cell Distribution Width 19.7 % (13.2-15.2)
[2019-05-11 05:58] LABS: BUN/Creatinine Ratio 40; Blood Urea Nitrogen 12 mg/dL (9-20); Calcium 8.9 mg/dL (8.4-10.2); Hemolysis Index 3
[2019-05-11] MEDS: MS CONTIN ER PO SCH ×3 (06:00→21:30)
[2019-05-11] MEDS: BENADRYL IV PRN ×3 (06:06→19:32)
[2019-05-11] MEDS: THERAGRAN Tab PO SCH (09:36)
[2019-05-11] MEDS: FOLVITE PO SCH (09:36)
[2019-05-11] MEDS: VANCOMYCIN/NS 1 GM/250 ML 1 GM/250 ML BAG IV SCH ×2 (09:36→19:34)
[2019-05-11] MEDS: LEVAQUIN PO SCH (09:36)
[2019-05-11] MEDS: COREG PO SCH ×2 (09:42→21:31)
[2019-05-11] MEDS: BACTROBAN 2% NS SCH ×2 (09:44→21:34)
[2019-05-11] MEDS ORDERED: LEVAQUIN 750MG/150ML 750 MG/150 ML BAG IV SCH (10:00)
[2019-05-11] MEDS: Desferal 3,000 MG in NACL 0.9% 250ML 250 ML IV SCH (11:07)
[2019-05-11] MEDS: HYDREA PO SCH (11:17)
--- NOTE | 2019-05-11 11:48 | Consultation ---
History of Present Illness - Reason for Consult Consult date: 05/11/19 - History of Present Illness Febrile overnight, ongoing but midlly improved leukocytosis. Past History Past Medical History: anemia Past Surgical History: No surgical history Social history: , lives with family Family history: no significant family history Medications and Allergies Allergies Allergy/AdvReac Type Severity Reaction Status Date / Time ceftriaxone sodium Allergy Unknown Verified 03/09/18 07:35 [From Rocephin] meperidine HCl [From Demerol] Allergy Unknown Verified 03/09/18 07:35 Home Medications Medication Instructions Recorded Confirmed Last Taken Type Folic Acid [Folvite] 1 mg PO QDAY #30 tablet 07/26/17 05/06/19 05/09/18 Rx Morphine ER [Ms Contin ER] 60 mg PO Q12H 03/09/18 05/06/19 05/09/18 History Oxycodone HCl [oxyCODONE] 10 mg PO Q8H 03/09/18 05/06/19 05/09/18 History Carvedilol [Coreg] 25 mg PO BID 05/10/18 05/06/19 09/25/18 History Hydrea 1,000 mg PO DAILY 09/27/18 05/06/19 Unknown History Active Meds: Active Medications Acetaminophen (Tylenol) 650 mg PO Q4H PRN PRN Reason: Pain, Mild (1-3), temp>100.5 Last Admin: 05/09/19 05:08 Dose: 650 mg Documented by: Bisacodyl (Dulcolax) 10 mg [place] QDAY PRN PRN Reason: Constipation unrelieved by MOM Carvedilol (Coreg) 25 mg PO BID [facility] Last Admin: 05/11/19 09:42 Dose: 25 mg Documented by: Diphenhydramine HCl (Benadryl) 25 mg IV Q6H PRN PRN Reason: Itching Last Admin: 05/11/19 06:06 Dose: 25 mg Documented by: Folic Acid (Folvite) 1 mg PO QDAY [facility] Last Admin: 05/11/19 09:36 Dose: 1 mg Documented by: Hydromorphone HCl (Dilaudid) 2 mg IV Q3H PRN PRN Reason: Pain , Severe (7-10) Last Admin: 05/11/19 09:35 Dose: 2 mg Documented by: Hydroxyurea (Hydrea) 1,000 mg PO QDAY [facility] Dextrose/Sodium Chloride (D5ns 0.2%) 1,000 mls @ 175 mls/hr IV DIRECT [facility] Last Admin: 05/11/19 01:06 Dose: 175 mls/hr Documented by: Deferoxamine Mesylate 3,000 mg (/ Sodium Chloride) 250 mls @ 32 mls/hr IV Q24HR [facility] Stop: 05/11/19 17:49 Last Admin: 05/11/19 11:07 Dose: 32 mls/hr Documented by: Vancomycin HCl (Vancomycin/Ns 1 Gm/250 Ml) 1 gm in 250 mls @ 250 mls/hr IV Q8H [facility] Last Admin: 05/11/19 09:36 Dose: 250 mls/hr Documented by: Ketorolac Tromethamine (Toradol) 30 mg IV Q6H PRN PRN Reason: Pain, Moderate (4-6) Stop: 05/13/19 19:04 Levofloxacin (Levaquin) 750 mg PO DAILY [facility] Last Admin: 05/11/19 09:36 Dose: 750 mg Documented by: Magnesium Hydroxide (Milk Of Magnesia) 30 ml PO Q4H PRN PRN Reason: Constipation Morphine Sulfate (Ms Contin Er) 30 mg PO Q8HR [facility] Last Admin: 05/11/19 06:00 Dose: Not Given Documented by: Multivitamins (Theragran Tab) 1 each PO QDAY [facility] Last Admin: 05/11/19 09:36 Dose: 1 each Documented by: Mupirocin (Bactroban 2%) 1 applic NS BID [facility] Last Admin: 05/11/19 09:44 Dose: 1 applic Documented by: Ondansetron HCl (Zofran) 4 mg IV Q4H PRN PRN Reason: Nausea And Vomiting Last Admin: 05/11/19 00:58 Dose: 4 mg Documented by: Senna (Senokot) 17.2 mg PO QHS [facility] Last Admin: 05/10/19 22:45 Dose: Not Given Documented by: Physical Examination - Constitutional Vitals: Vital Signs Temp Pulse Resp BP Pulse Ox 97.5 F L 74 18 111/75 97 05/11/19 06:06 05/11/19 09:42 05/11/19 06:37 05/11/19 09:42 05/11/19 09:21 Temperature -Last 24 Hours Temperature 97.5 F Temperature 98.9 F Temperature 99.2 F Results - Labs CBC & Chem 7: 05/11/19 05:07 05/11/19 05:07 Labs: Abnormal lab results 05/09/19 05/11/19 05/11/19 Range/Units Unknown 05:07 05:07 WBC 15.2 H (4.5-11.0) K/mm3 RBC 2.51 L (3.65-5.03) M/mm3 Hgb 7.7 L (11.8-15.2) gm/dl Hct 22.4 L (35.5-45.6) % MCHC 35 H (32-34) % RDW 19.7 H (13.2-15.2) % Creatinine 0.3 L (0.8-1.5) mg/dL Glucose 106 H (75-100) mg/dL Ferritin > 64065.0 H (13.0-400.0) ng/mL Assessment and Plan Cultures: Blood culture .05/06/2019 no growth so far Assessment: 33 y/o male with history of Sickle cell disease, splenectomy, right sided t horacic wall port, frequent hospital admissions for SCD crises admitted on 05/05 due to body aches mainly bilateral knee and hips: Sepsis: not present on admission with fever, tachycardia; source HAP HAP vs CAP: recently admitted in [place] SCD crisis Elevated LFTs Penicillin allergy Recommendations: continue aztreonam and levaquin continue vancomycin follow blood cx Will follow. MD Nanette Santos [facility] M: [phone] O: [phone] F: [phone]
--- NOTE | 2019-05-11 11:50 | Progress Note ---
Assessment and Plan Cultures: Blood culture .05/06/2019 no growth so far Assessment: 33 y/o male with history of Sickle cell disease, splenectomy, right sided thoracic wall port, frequent hospital admissions for SCD crises admitted on 05/05 due to body aches mainly bilateral knee and hips: Sepsis: not present on admission with fever, tachycardia; source HAP HAP vs CAP: recently admitted in [place] SCD crisis Elevated LFTs Penicillin allergy Recommendations: continue aztreonam and levaquin continue vancomycin follow blood cx Will follow. Chris Trejo MD [facility] M: [phone] O: [phone] Subjective Date of service: 05/11/19 Interval history: Febrile overnight, ongoing but slightly improved leukocytosis. Objective - Exam Narrative Exam: General appearance: Alert in NAD Eyes: anicteric sclerae, moist conjunctivae; no lid-lag; PERRLA HENT: Atraumatic; oropharynx clear with moist mucous membranes and no mucosal ulcerations/no oral thrush; normal hard and soft palate. Lungs: CTA, with normal respiratory effort and no intercostal retractions POrt ok CV: RRR no murmur Abdomen: Soft, non-tender; no masses or hepatosplenomegaly Extremities: no edema, no cyanosis Skin: No rash. Psych: Appropriate affect, alert and oriented to person, place and time. Neuro: alert and oriented x 3. Moving all extermities - Constitutional Vitals: Vital Signs Temp Pulse Resp BP Pulse Ox 97.5 F L 74 18 111/75 97 05/11/19 06:06 05/11/19 09:42 05/11/19 06:37 05/11/19 09:42 05/11/19 09:21 Temperature -Last 24 Hours Temperature 97.5 F Temperature 98.9 F Temperature 99.2 F - Labs CBC & Chem 7: 05/11/19 05:07 05/11/19 05:07 Labs: Abnormal lab results 05/09/19 05/11/19 05/11/19 Range/Units Unknown 05:07 05:07 WBC 15.2 H (4.5-11.0) K/mm3 RBC 2.51 L (3.65-5.03) M/mm3 Hgb 7.7 L (11.8-15.2) gm/dl Hct 22.4 L (35.5-45.6) % MCHC 35 H (32-34) % RDW 19.7 H (13.2-15.2) % Creatinine 0.3 L (0.8-1.5) mg/dL Glucose 106 H (75-100) mg/dL Ferritin > 19555.0 H (13.0-400.0) ng/mL
[2019-05-11] MEDS ORDERED: HYDREA PO SCH (12:00)
--- NOTE | 2019-05-11 15:32 | Progress Note ---
Assessment and Plan Assessment and plan: --Atypical Multifocal pneumonia:present on admission continue antibiotics,f/u cultures and supportive care Minimal improvement in the follow-up chest x-ray ID consult --Sepsis:Leukocytosis:sec to pneumonia on Aztreonem ,Levaquin, and vancomycin f/u cultures, ID following -- Severe sickle cell anemia: 2 units PRBC transfusion Hemoglobin improved , mild drop today Monitor H /H and Transfuse additional as needed --Sickle cell crisis; O2,IV fluids,pain medications Retic count gradually improving, hematology following --Elevated ferritin; I/V Deferoxamine 3/3 today per hematology --Transaminitis; secondary to underlying sickle cell disease Monitor closely, GI evaluation if needed --DVT prophylaxis: SCD Plan of care d/w patient and his nurse Hepatology evaluation and recommendations noted and appreciated Disposition; continue inpatient management Possible discharge when in patient's leukocytosis Symptoms and retic count improve Hematology evaluation and recommendations noted and appreciated History Interval history: Patient seen and examined medical records reviewed Patient continues to have chest pain White count remains elevated ID evaluation and appreciated Added vancomycin Patient is relatively oriented 3 Clinic signs noted Hospitalist Physical - Constitutional Vitals: Temp Pulse Resp BP Pulse Ox 97.5 F L 74 18 111/75 97 05/11/19 06:06 05/11/19 09:42 05/11/19 06:37 05/11/19 09:42 05/11/19 09:21 General appearance: Present: no acute distress, well-nourished - EENT Eyes: Present: PERRL, EOM intact - Neck Neck: Present: supple, normal ROM - Respiratory Respiratory effort: normal Respiratory: bilateral: diminished, negative: rales, rhonchi, wheezing - Cardiovascular Rhythm: regular Heart Sounds: Present: S1 & S2 - Extremities Extremities: no ischemia, No edema - Abdominal General gastrointestinal: soft, non-tender, non-distended, normal bowel sounds - Integumentary Integumentary: Present: clear, warm - Psychiatric Psychiatric: appropriate mood/affect, cooperative - Neurologic Neurologic: CNII-XII intact, moves all extremities Results - Labs CBC & Chem 7: 05/12/19 Unknown 05/12/19 Unknown Labs: Laboratory Last Values WBC 15.2 K/mm3 (4.5-11.0) H 05/11/19 05:07 RBC 2.51 M/mm3 (3.65-5.03) L 05/11/19 05:07 Hgb 7.7 gm/dl (11.8-15.2) L 05/11/19 05:07 Hct 22.4 % (35.5-45.6) L 05/11/19 05:07 MCV 89 fl (84-94) 05/11/19 05:07 MCH 31 pg (28-32) 05/11/19 05:07 MCHC 35 % (32-34) H 05/11/19 05:07 RDW 19.7 % (13.2-15.2) H 05/11/19 05:07 Plt Count 279 K/mm3 (140-440) 05/09/19 Unknown Lymph % (Auto) 12.4 % (13.4-35.0) L 05/09/19 Unknown Schleicher % (Auto) [employer] 05/11/19 05:07 Eos % (Auto) 1.9 % (0.0-4.3) 05/09/19 Unknown Baso % (Auto) 0.5 % (0.0-1.8) 05/09/19 Unknown Lymph # 2.1 K/mm3 (1.2-5.4) 05/09/19 Unknown Schleicher # 2.4 K/mm3 (0.0-0.8) H 05/09/19 Unknown Eos # 0.3 K/mm3 (0.0-0.4) 05/09/19 Unknown Baso # 0.1 K/mm3 (0.0-0.1) 05/09/19 Unknown Add Manual Diff Complete 05/07/19 06:26 Total Counted 100 05/07/19 06:26 Seg Neutrophils % 71.1 % (40.0-70.0) H 05/09/19 Unknown Seg Neuts % (Manual) 70.0 % (40.0-70.0) 05/07/19 06:26 Band Neutrophils % 2.0 % 05/07/19 06:26 Lymphocytes % (Manual) 9.0 % (13.4-35.0) L 05/07/19 06:26 Reactive Lymphs % (Man) 4.0 % 05/07/19 06:26 Monocytes % (Manual) 12.0 % (0.0-7.3) H 05/07/19 06:26 Eosinophils % (Manual) 2.0 % (0.0-4.3) 05/07/19 06:26 Basophils % (Manual) 1.0 % (0.0-1.8) 05/07/19 06:26 Metamyelocytes % 0 % 05/07/19 06:26 Myelocytes % 0 % 05/07/19 06:26 Promyelocytes % 0 % 05/07/19 06:26 Blast Cells % 0 % 05/07/19 06:26 Nucleated RBC % 3.0 % (0.0-0.9) H 05/07/19 06:26 Seg Neutrophils # 12.2 K/mm3 (1.8-7.7) H 05/09/19 Unknown Seg Neutrophils # Man 12.4 K/mm3 (1.8-7.7) H 05/07/19 06:26 Band Neutrophils # 0.4 K/mm3 05/07/19 06:26 Lymphocytes # (Manual) 1.6 K/mm3 (1.2-5.4) 05/07/19 06:26 Abs React Lymphs (Man) 0.7 K/mm3 05/07/19 06:26 Monocytes # (Manual) 2.1 K/mm3 (0.0-0.8) H 05/07/19 06:26 Eosinophils # (Manual) 0.4 K/mm3 (0.0-0.4) 05/07/19 06:26 Basophils # (Manual) 0.2 K/mm3 (0.0-0.1) H 05/07/19 06:26 Metamyelocytes # 0.0 K/mm3 05/07/19 06:26 Myelocytes # 0.0 K/mm3 05/07/19 06:26 Promyelocytes # 0.0 K/mm3 05/07/19 06:26 Blast Cells # 0.0 K/mm3 05/07/19 06:26 WBC Morphology Not Reportable 05/07/19 06:26 Hypersegmented Neuts Not Reportable 05/07/19 06:26 Hyposegmented Neuts Not Reportable 05/07/19 06:26 Hypogranular Neuts Not Reportable 05/07/19 06:26 Smudge Cells Not Reportable 05/07/19 06:26 Toxic Granulation Not Reportable 05/07/19 06:26 Toxic Vacuolation Not Reportable 05/07/19 06:26 Dohle Bodies Not Reportable 05/07/19 06:26 Pelger-Huet Anomaly Not Reportable 05/07/19 06:26 Christian Rods Not Reportable 05/07/19 06:26 Platelet Estimate Consistent w auto 05/07/19 06:26 Clumped Platelets Not Reportable 05/07/19 06:26 Plt Clumps, EDTA Not Reportable 05/07/19 06:26 Large Platelets Not Reportable 05/07/19 06:26 Giant Platelets Few 05/07/19 06:26 Platelet Satelliting Not Reportable 05/07/19 06:26 Plt Morphology Comment Not Reportable 05/07/19 06:26 RBC Morphology Not Reportable 05/07/19 06:26 Dimorphic RBCs Not Reportable 05/07/19 06:26 Polychromasia 1+ 05/07/19 06:26 Hypochromasia 1+ 05/07/19 06:26 Poikilocytosis Not Reportable 05/07/19 06:26 Anisocytosis Not Reportable 05/07/19 06:26 Microcytosis Not Reportable 05/07/19 06:26 Macrocytosis Not Reportable 05/07/19 06:26 Spherocytes Not Reportable 05/07/19 06:26 Pappenheimer Bodies Not Reportable 05/07/19 06:26 Sickle Cells 1+ 05/07/19 06:26 Target Cells 1+ 05/07/19 06:26 Tear Drop Cells Not Reportable 05/07/19 06:26 Ovalocytes Not Reportable 05/07/19 06:26 Helmet Cells Not Reportable 05/07/19 06:26 [place] Bodies Not Reportable 05/07/19 06:26 [place] Rings Not Reportable 05/07/19 06:26 [place] Cells Not Reportable 05/07/19 06:26 Bite Cells Not Reportable 05/07/19 06:26 Crenated Cell Not Reportable 05/07/19 06:26 Elliptocytes Not Reportable 05/07/19 06:26 Acanthocytes (Spur) Not Reportable 05/07/19 06:26 Rouleaux Not Reportable 05/07/19 06:26 Hemoglobin C Crystals Not Reportable 05/07/19 06:26 Schistocytes Not Reportable 05/07/19 06:26 Malaria parasites Not Reportable 05/07/19 06:26 Percent Retic 13.96 % (0.78-2.58) H 05/08/19 18:18 You Bodies Not Reportable 05/07/19 06:26 Hem Pathologist Commnt No 05/07/19 06:26 Sodium 137 mmol/L (137-145) 05/11/19 05:07 Potassium 4.1 mmol/L (3.6-5.0) 05/11/19 05:07 Chloride 101.0 mmol/L (98-107) 05/11/19 05:07 Carbon Dioxide 24 mmol/L (22-30) 05/11/19 05:07 Anion Gap 16 mmol/L 05/11/19 05:07 BUN 12 mg/dL (9-20) 05/11/19 05:07 Creatinine 0.3 mg/dL (0.8-1.5) L 05/11/19 05:07 Estimated GFR > 60 ml/min 05/11/19 05:07 BUN/Creatinine Ratio 40 % 05/11/19 05:07 Glucose 106 mg/dL (75-100) H 05/11/19 05:07 Calcium 8.9 mg/dL (8.4-10.2) 05/11/19 05:07 Iron 38 ug/dL (49-181) L 05/09/19 Unknown TIBC 144 mcg/dL (250-450) L 05/09/19 Unknown Ferritin > 46849.0 ng/mL (13.0-400.0) H 05/09/19 Unknown Total Bilirubin 4.60 mg/dL (0.1-1.2) H 05/09/19 Unknown Direct Bilirubin 1.3 mg/dL (0-0.2) H 05/06/19 04:12 Indirect Bilirubin 3.1 mg/dL 05/06/19 04:12 AST 119 units/L (5-40) H 05/09/19 Unknown ALT 70 units/L (7-56) H 05/09/19 Unknown Alkaline Phosphatase 157 units/L (35-129) H 05/09/19 Unknown Lactate Dehydrogenase 440 units/L (91-180) H 05/08/19 06:54 Total Protein 7.0 g/dL (6.3-8.2) 05/09/19 Unknown Albumin 3.5 g/dL (3.9-5) L 05/09/19 Unknown Albumin/Globulin Ratio 1.0 % 05/09/19 Unknown Urine Color Yellow (Yellow) 05/06/19 09:17 Urine Turbidity Clear (Clear) 05/06/19 09:17 Urine pH 6.0 (5.0-7.0) 05/06/19 09:17 Ur Specific [place] 1.006 (1.003-1.030) 05/06/19 09:17 Urine Protein <15 mg/dl mg/dL (Negative) 05/06/19 09:17 Urine Glucose (UA) Neg mg/dL (Negative) 05/06/19 09:17 Urine Ketones Neg mg/dL (Negative) 05/06/19 09:17 Urine Blood Sm (Negative) 05/06/19 09:17 Urine Nitrite Neg (Negative) 05/06/19 09:17 Urine Bilirubin Neg (Negative) 05/06/19 09:17 Urine Urobilinogen 4.0 mg/dL (<2.0) 05/06/19 09:17 Ur Leukocyte Esterase Neg (Negative) 05/06/19 09:17 Urine WBC (Auto) < 1.0 /HPF (0.0-6.0) 05/06/19 09:17 Urine RBC (Auto) 2.0 /HPF (0.0-6.0) 05/06/19 09:17 Blood Type O POSITIVE 05/06/19 04:47 Antibody Screen Negative 05/06/19 04:47 Crossmatch See Detail 05/06/19 04:47 Active Medications - Current Medications Current Medications: Generic Name Dose Route Start Last Admin Trade Name Adinq PRN Reason Stop Dose Admin Acetaminophen 650 mg 05/09/19 04:54 05/09/19 05:08 Tylenol PO 650 mg Q4H PRN Administration Pain, Mild (1-3), temp>100.5 Bisacodyl 10 mg 05/06/19 02:47 Dulcolax [place] QDAY PRN Constipation unrelieved by MOM Carvedilol 25 mg 05/06/19 10:00 05/11/19 09:42 Coreg PO 25 mg BID WAYNE Administration Diphenhydramine HCl 25 mg 05/06/19 05:07 05/11/19 12:38 Benadryl IV 25 mg Q6H PRN Administration Itching Folic Acid 1 mg 05/06/19 10:00 05/11/19 09:36 Folvite PO 1 mg QDAY WAYNE Administration Hydromorphone HCl 2 mg 05/06/19 15:42 05/11/19 12:37 Dilaudid IV 2 mg Q3H PRN Administration Pain , Severe (7-10) Hydroxyurea 1,000 mg 05/12/19 10:00 Hydrea PO QDAY WAYNE Dextrose/Sodium Chloride 1,000 mls @ 175 mls/hr 05/06/19 16:00 05/11/19 01:06 D5ns 0.2% IV 175 mls/hr DIRECT WAYNE Administration Deferoxamine Mesylate 3,000 mg 250 mls @ 32 mls/hr 05/09/19 13:00 05/11/19 11:07 / Sodium Chloride IV 05/11/19 17:49 32 mls/hr Q24HR WAYNE Administration Vancomycin HCl 1 gm in 250 mls @ 250 mls/hr 05/11/19 08:00 05/11/19 09:36 Vancomycin/Ns 1 Gm/250 Ml IV 250 mls/hr Q8H WAYNE Administration Ketorolac Tromethamine 30 mg 05/08/19 19:05 Toradol IV 05/13/19 19:04 Q6H PRN Pain, Moderate (4-6) Levofloxacin 750 mg 05/11/19 10:00 05/11/19 09:36 Levaquin PO 750 mg DAILY WAYNE Administration Magnesium Hydroxide 30 ml 05/06/19 02:47 Milk Of Magnesia PO Q4H PRN Constipation Morphine Sulfate 30 mg 05/06/19 06:00 05/11/19 14:42 Ms Contin Er PO 30 mg Q8HR WAYNE Administration Multivitamins 1 each 05/06/19 10:00 05/11/19 09:36 Theragran Tab PO 1 each QDAY [facility] Administration Mupirocin 1 applic 05/08/19 22:00 05/11/19 09:44 Bactroban 2% NS 1 applic BID WAYNE Administration Ondansetron HCl 4 mg 05/06/19 02:47 05/11/19 00:58 Zofran IV 4 mg Q4H PRN Administration Nausea And Vomiting Senna 17.2 mg 05/06/19 22:00 05/10/19 22:45 Senokot PO Not Given QHS [facility] Nutrition/Malnutrition Assess - Dietary Evaluation Nutrition/Malnutrition Findings: Nutrition Notes Start: 05/06/19 09:09 Freq: Status: Active Protocol: Document 05/08/19 12:43 RM (Rec: 05/08/19 12:51 RM [id number]) Nutrition Notes Initial or Follow up Reassessment Current Diagnosis Hypertension Other Pertinent Diagnosis Sickle Cell anemia Current Diet Regular w/Ensure Enlive [place] TID Labs/Tests Reviewed Pertinent Medications Reviewed Height 5 ft 6 in Weight 60.3 kg [place] Body Weight (kg) 64.54 BMI 21.4 Subjective/Other Information Pt stated that his appetite is good and that he eats most or all of his meals. Also stated that he drinks the Ensure Enlive. Percent of energy/protein needs met: 159%/160% Burn Absent Trauma Absent Minimum of two criteria Y #1 Nutrition Diagnosis Malnutrition Diagnosis Progress(for reassessment Continues documentation) Is patient on ventilator? No Is Patient Ambulatory and/or Out of Bed Yes REE-([facility]-ambulatory/OOB) [ [id number] [id number]] Calculation Used for Recommendations [facility] Additional Notes Protein needs are 68-85g (1.2- 1.5g/kg) Fluid needs are 1ml/kcal Nutrition Intervention Change Diet Order: Continue Add Supplement/Snack (indicate name/kcal Ensure Enlive [place] BID /protein ) Provides kCal: 700 Provides Protein (gm) 40 Goal #1 Continue to meet at least 75% of calorie and protein needs via PO and ONS intakes Goal #2 Wt maintenance Anticipated Discharge Needs: Regular diet with ONS BID-TID Follow-Up By: 05/15/19 Additional Comments Follow for PO and ONS intakes
[2019-05-11 16:00] LABS: Basophils % (Manual) 0 % (0.0-1.8); Total Cells Counted 100
[2019-05-11 16:01] LABS: Anisocytosis 1+; Sickle Cells 1+; Target Cells 1+
[2019-05-11 16:02] LABS: Large Platelets 1+; Platelet Estimate Consistent w Auto
[2019-05-11 18:04] LABS: Platelet Count 255 K/mm3 (140-440)
--- NOTE | 2019-05-11 19:11 | Progress Note ---
Assessment and Plan - Patient Problems (1) Sickle cell pain crisis Current Visit: Yes Status: Acute Plan to address problem: pain control, supportive care. (2) Acute hemolytic anemia Current Visit: No Status: Acute Plan to address problem: Transfusion replacement. (3) Dehydration Current Visit: Yes Status: Acute Plan to address problem: Hydration. (4) Iron overload due to repeated red blood cell transfusions Current Visit: Yes Status: Chronic Plan to address problem: monitor iron level., and tx if needed. Subjective Date of service: 05/11/19 Interval history: Patient seen/examined, resting in bed, spiked fever last night, better now , with tylenol. Labs reviewed, iron, and WBC high, will try DESF tx. He will continue with IV ABX, cultures still negative, so far.If continue to spike feve r, may add vanc. Patient seen/examined, resting in bed,labs reviewed, case d/w patient. Niotes from ID/co reviewed. I seriously doubt , if patient has sepsis. the leukocytosis, may very well be due to crisis, and the elevated LLFTs are clearly due to Iron over load,, and in part, hemolytic process. which is chronic.He will continue with Desferoamine.the CXR findings, is consistent with sickle cell crisis chest. findings. Patient seen/examined, resting in bed, notes reviewed, will continue to follow you ,with current management. Objective - Constitutional Vitals: Vital Signs - 12hr 05/11/19 05/11/19 05/11/19 09:21 09:42 13:18 Temperature 99.1 F Pulse Rate 74 79 Respiratory 16 Rate Blood Pressure 111/75 106/63 O2 Sat by Pulse 97 97 Oximetry 05/11/19 17:04 Temperature 98.8 F Pulse Rate 78 Respiratory 14 Rate Blood Pressure 104/63 O2 Sat by Pulse 96 Oximetry General appearance: Present: mild distress, well-nourished - EENT Eyes: PERRL, EOM intact ENT: hearing intact, clear oral mucosa Ears: bilateral: normal - Neck Neck: supple, normal ROM - Respiratory Respiratory effort: normal Respiratory: bilateral: CTA - Breasts Breasts: deferred - Cardiovascular Rhythm: regular Heart Sounds: Present: S1 & S2. Absent: gallop, rub Extremities: pulses intact, No edema, normal color, Full ROM - Gastrointestinal General gastrointestinal: Present: soft, non-tender, non-distended, normal bowel sounds Rectal Exam: deferred - Genitourinary Male genitourinary: deferred - Integumentary Integumentary: clear, warm, dry - Musculoskeletal Musculoskeletal: 1, strength equal bilaterally - Neurologic Neurologic: moves all extremities - Psychiatric Psychiatric: memory intact, appropriate mood/affect, intact judgment & insight - Labs CBC & Chem 7: 05/11/19 05:07 05/11/19 05:07 Labs: Abnormal lab results 05/11/19 05/11/19 Range/Units 05:07 05:07 WBC 15.2 H (4.5-11.0) K/mm3 RBC 2.51 L (3.65-5.03) M/mm3 Hgb 7.7 L (11.8-15.2) gm/dl Hct 22.4 L (35.5-45.6) % MCHC 35 H (32-34) % RDW 19.7 H (13.2-15.2) % Monocytes % (Manual) 12.0 H (0.0-7.3) % Seg Neutrophils # Man 10.0 H (1.8-7.7) K/mm3 Monocytes # (Manual) 1.8 H (0.0-0.8) K/mm3 Creatinine 0.3 L (0.8-1.5) mg/dL Glucose 106 H (75-100) mg/dL Medications & Allergies - Medications Allergies/Adverse Reactions: Allergies ceftriaxone sodium [From Rocephin] Allergy (Verified 03/09/18 07:35) Unknown meperidine HCl [From Demerol] Allergy (Verified 03/09/18 07:35) Unknown Home Medications: Home Medications Medication Instructions Recorded Confirmed Last Taken Type Folic Acid [Folvite] 1 mg PO QDAY #30 tablet 07/26/17 05/06/19 05/09/18 Rx Morphine ER [Ms Contin ER] 60 mg PO Q12H 03/09/18 05/06/19 05/09/18 History Oxycodone HCl [oxyCODONE] 10 mg PO Q8H 03/09/18 05/06/19 05/09/18 History Carvedilol [Coreg] 25 mg PO BID 05/10/18 05/06/19 09/25/18 History Hydrea 1,000 mg PO DAILY 09/27/18 05/06/19 Unknown History Active Medications: Generic Name Dose Route Start Last Admin Trade Name Freq PRN Reason Stop Dose Admin Acetaminophen 650 mg 05/09/19 04:54 05/09/19 05:08 Tylenol PO 650 mg Q4H PRN Administration Pain, Mild (1-3), temp>100.5 Bisacodyl 10 mg 05/06/19 02:47 Dulcolax [place] QDAY PRN Constipation unrelieved by MOM Carvedilol 25 mg 05/06/19 10:00 05/11/19 09:42 Coreg PO 25 mg BID WAYNE Administration Diphenhydramine HCl 25 mg 05/06/19 05:07 05/11/19 12:38 Benadryl IV 25 mg Q6H PRN Administration Itching Folic Acid 1 mg 05/06/19 10:00 05/11/19 09:36 Folvite PO 1 mg QDAY WAY[facility] Administration Hydromorphone HCl 2 mg 05/06/19 15:42 05/11/19 16:07 Dilaudid IV 2 mg Q3H PRN Administration Pain , Severe (7-10) Hydroxyurea 1,000 mg 05/12/19 10:00 Hydrea PO QDAY WAYNE Dextrose/Sodium Chloride 1,000 mls @ 175 mls/hr 05/06/19 16:00 05/11/19 01:06 D5ns 0.2% IV 175 mls/hr DIRECT WAYNE Administration Vancomycin HCl 1 gm in 250 mls @ 250 mls/hr 05/11/19 08:00 05/11/19 09:36 Vancomycin/Ns 1 Gm/250 Ml IV 250 mls/hr Q8H WAYNE Administration Ketorolac Tromethamine 30 mg 05/08/19 19:05 Toradol IV 05/13/19 19:04 Q6H PRN Pain, Moderate (4-6) Levofloxacin 750 mg 05/11/19 10:00 05/11/19 09:36 Levaquin PO 750 mg DAILY WAYNE Administration Magnesium Hydroxide 30 ml 05/06/19 02:47 Milk Of Magnesia PO Q4H PRN Constipation Morphine Sulfate 30 mg 05/06/19 06:00 05/11/19 14:42 Ms Contin Er PO 30 mg Q8HR WAYNE Administration Multivitamins 1 each 05/06/19 10:00 05/11/19 09:36 Theragran Tab PO 1 each QDAY WAY[facility] Administration Mupirocin 1 applic 05/08/19 22:00 05/11/19 09:44 Bactroban 2% NS 1 applic BID WAYNE Administration Ondansetron HCl 4 mg 05/06/19 02:47 05/11/19 00:58 Zofran IV 4 mg Q4H PRN Administration Nausea And Vomiting Senna 17.2 mg 05/06/19 22:00 05/10/19 22:45 Senokot PO Not Given QHS WAYNE
[2019-05-11] MEDS: SENOKOT PO SCH (21:30)
[2019-05-12] MEDS: DILAUDID IV PRN ×7 (01:52→20:50)
[2019-05-12] MEDS: BENADRYL IV PRN ×4 (01:52→20:50)
[2019-05-12] MEDS: VANCOMYCIN/NS 1 GM/250 ML 1 GM/250 ML BAG IV SCH ×4 (04:42→20:50)
[2019-05-12] MEDS: D5NS 0.2% 1,000 ML IV SCH ×3 (04:42→18:50)
[2019-05-12] MEDS: MS CONTIN ER PO SCH ×3 (05:51→22:20)
[2019-05-12 06:56] LABS: Hemoglobin 7.2 gm/dl (11.8-15.2); Mean Corpuscular HGB Conc 34 % (32-34); Mean Corpuscular Volume 87 fl (84-94); Platelet Count 283 K/mm3 (140-440); Red Blood Count 2.41 M/mm3 (3.65-5.03); Red Cell Distribution Width 19.5 % (13.2-15.2)
[2019-05-12 07:20] LABS: BUN/Creatinine Ratio 55; Blood Urea Nitrogen 11 mg/dL (9-20); Calcium 8.7 mg/dL (8.4-10.2); Hemolysis Index 2
[2019-05-12] MEDS: COREG PO SCH ×2 (09:25→22:20)
[2019-05-12] MEDS: FOLVITE PO SCH (09:26)
[2019-05-12] MEDS: LEVAQUIN PO SCH (09:26)
[2019-05-12] MEDS: THERAGRAN Tab PO SCH (09:26)
[2019-05-12] MEDS: BACTROBAN 2% NS SCH ×2 (09:27→22:22)
[2019-05-12] MEDS: HYDREA PO SCH (09:32)
--- NOTE | 2019-05-12 09:52 | Progress Note ---
Assessment and Plan - Patient Problems (1) Sickle cell pain crisis Current Visit: Yes Status: Acute Plan to address problem: pain control, supportive care. (2) Acute hemolytic anemia Current Visit: No Status: Acute Plan to address problem: Transfusion replacement. (3) Dehydration Current Visit: Yes Status: Acute Plan to address problem: Hydration. (4) Iron overload due to repeated red blood cell transfusions Current Visit: Yes Status: Chronic Plan to address problem: monitor iron level., and tx if needed. Subjective Date of service: 05/12/19 Interval history: Patient seen/examined, resting in bed, spiked fever last night, better now , with tylenol. Labs reviewed, iron, and WBC high, will try DESF tx. He will continue with IV ABX, cultures still negative, so far.If continue to spike feve r, may add vanc. Patient seen/examined, resting in bed,labs reviewed, case d/w patient. Niotes from ID/co reviewed. I seriously doubt , if patient has sepsis. the leukocytosis, may very well be due to crisis, and the elevated LLFTs are clearly due to Iron over load,, and in part, hemolytic process. which is chronic.He will continue with Desferoamine.the CXR findings, is consistent with sickle cell crisis chest. findings. Patient seen/examined, resting in bed, notes reviewed, will continue to follow you ,with current management. Patient seen/examined, resting in bed, labs reviewed, case d/w patient.WBC has risen, and so has the feretin. He has completed 3 doses of DESF. Objective - Constitutional Vitals: Vital Signs - 12hr 05/12/19 05/12/19 05/12/19 00:10 06:04 09:25 Temperature 98.8 F 98.0 F Pulse Rate 82 76 78 Respiratory 16 16 Rate Blood Pressure 121/70 110/64 122/77 O2 Sat by Pulse 96 98 Oximetry General appearance: Present: mild distress, well-nourished - EENT Eyes: PERRL, EOM intact ENT: hearing intact, clear oral mucosa Ears: bilateral: normal - Neck Neck: supple, normal ROM - Respiratory Respiratory effort: normal Respiratory: bilateral: CTA - Breasts Breasts: deferred, normal - Cardiovascular Rhythm: regular Heart Sounds: Present: S1 & S2. Absent: gallop, rub Extremities: pulses intact, No edema, normal color, Full ROM - Gastrointestinal General gastrointestinal: Present: soft, non-tender, non-distended, normal bowel sounds Rectal Exam: deferred - Genitourinary Male genitourinary: deferred - Integumentary Integumentary: clear, warm, dry - Musculoskeletal Musculoskeletal: 1, strength equal bilaterally - Neurologic Neurologic: moves all extremities - Psychiatric Psychiatric: memory intact, appropriate mood/affect, intact judgment & insight - Labs CBC & Chem 7: 05/12/19 Unknown 05/12/19 Unknown Labs: Abnormal lab results 05/11/19 05/12/19 05/12/19 Range/Units 05:07 Unknown Unknown WBC 17.1 H (4.5-11.0) K/mm3 RBC 2.41 L (3.65-5.03) M/mm3 Hgb 7.2 L (11.8-15.2) gm/dl Hct 21.0 L (35.5-45.6) % RDW 19.5 H (13.2-15.2) % Monocytes % (Manual) 12.0 H (0.0-7.3) % Seg Neutrophils # Man 10.0 H (1.8-7.7) K/mm3 Monocytes # (Manual) 1.8 H (0.0-0.8) K/mm3 Sodium 134 L (137-145) mmol/L Creatinine 0.2 L (0.8-1.5) mg/dL Medications & Allergies - Medications Allergies/Adverse Reactions: Allergies ceftriaxone sodium [From Rocephin] Allergy (Verified 03/09/18 07:35) Unknown meperidine HCl [From Demerol] Allergy (Verified 03/09/18 07:35) Unknown Home Medications: Home Medications Medication Instructions Recorded Confirmed Last Taken Type Folic Acid [Folvite] 1 mg PO QDAY #30 tablet 07/26/17 05/06/19 05/09/18 Rx Morphine ER [Ms Contin ER] 60 mg PO Q12H 03/09/18 05/06/19 05/09/18 History Oxycodone HCl [oxyCODONE] 10 mg PO Q8H 03/09/18 05/06/19 05/09/18 History Carvedilol [Coreg] 25 mg PO BID 05/10/18 05/06/19 09/25/18 History Hydrea 1,000 mg PO DAILY 09/27/18 05/06/19 Unknown History Active Medications: Generic Name Dose Route Start Last Admin Trade Name Freq PRN Reason Stop Dose Admin Acetaminophen 650 mg 05/09/19 04:54 05/09/19 05:08 Tylenol PO 650 mg Q4H PRN Administration Pain, Mild (1-3), temp>100.5 Bisacodyl 10 mg 05/06/19 02:47 Dulcolax [place] QDAY PRN Constipation unrelieved by MOM Carvedilol 25 mg 05/06/19 10:00 05/12/19 09:25 Coreg PO 25 mg BID WAYNE Administration Diphenhydramine HCl 25 mg 05/06/19 05:07 05/12/19 08:19 Benadryl IV 25 mg Q6H PRN Administration Itching Folic Acid 1 mg 05/06/19 10:00 05/12/19 09:26 Folvite PO 1 mg QDAY WAYNE Administration Hydromorphone HCl 2 mg 05/06/19 15:42 05/12/19 08:18 Dilaudid IV 2 mg Q3H PRN Administration Pain , Severe (7-10) Hydroxyurea 1,000 mg 05/12/19 10:00 05/12/19 09:32 Hydrea PO 1,000 mg QDAY WAYNE Administration Dextrose/Sodium Chloride 1,000 mls @ 175 mls/hr 05/06/19 16:00 05/12/19 04:42 D5ns 0.2% IV 175 mls/hr DIRECT WAYNE Administration Vancomycin HCl 1 gm in 250 mls @ 250 mls/hr 05/12/19 04:00 05/12/19 04:42 Vancomycin/Ns 1 Gm/250 Ml IV 250 mls/hr Q8H WAYNE Administration Ketorolac Tromethamine 30 mg 05/08/19 19:05 Toradol IV 05/13/19 19:04 Q6H PRN Pain, Moderate (4-6) Levofloxacin 750 mg 05/11/19 10:00 05/12/19 09:26 Levaquin PO 750 mg DAILY WAYNE Administration Magnesium Hydroxide 30 ml 05/06/19 02:47 Milk Of Magnesia PO Q4H PRN Constipation Morphine Sulfate 30 mg 05/06/19 06:00 05/12/19 05:51 Ms Contin Er PO 30 mg Q8HR WAYNE Administration Multivitamins 1 each 05/06/19 10:00 05/12/19 09:26 Theragran Tab PO 1 each QDAY WAYNE Administration Mupirocin 1 applic 05/08/19 22:00 05/12/19 09:27 Bactroban 2% NS 1 applic BID WAYNE Administration Ondansetron HCl 4 mg 05/06/19 02:47 05/11/19 00:58 Zofran IV 4 mg Q4H PRN Administration Nausea And Vomiting Senna 17.2 mg 05/06/19 22:00 05/11/19 21:30 Senokot PO 17.2 mg QHS WAYNE Administration
[2019-05-12] MEDS ORDERED: HYDREA PO SCH (10:00)
[2019-05-12 10:20] LABS: Anisocytosis 1+; Total Cells Counted 100
[2019-05-12 10:21] LABS: Large Platelets 1+; Platelet Estimate Consistent w Auto; Poikilocytosis 1+; Sickle Cells 1+; Target Cells 1+
--- NOTE | 2019-05-12 14:34 | Progress Note ---
Assessment and Plan Cultures: Blood culture .05/06/2019 negative Assessment: 33 y/o male with history of Sickle cell disease, splenectomy, right sided thoracic wall port, frequent hospital admissions for SCD crises admitted on 05/05 due to body aches mainly bilateral knee and hips: Sepsis: not present on admission with fever, tachycardia; source HAP HAP vs CAP: recently admitted in [place] SCD crisis Elevated LFTs Penicillin allergy Recommendations: Has compelted full course of antibiotics. Ok to discharge off antibiotics. Will sign off, please call with questions. Chris Trejo MD [facility] ([facility]) M: [phone] O: [phone] Subjective Date of service: 05/12/19 Interval history: Afebrile, not acute concerns. no SOB or sputum production. Mildly achy. Objective - Exam Narrative Exam: General appearance: Alert in NAD Eyes: anicteric sclerae, moist conjunctivae; no lid-lag; PERRLA HENT: Atraumatic; oropharynx clear with moist mucous membranes and no mucosal ulcerations/no oral thrush; normal hard and soft palate. Lungs: CTA, with normal respiratory effort and no intercostal retractions POrt ok CV: RRR no murmur Abdomen: Soft, non-tender; no masses or hepatosplenomegaly Extremities: no edema, no cyanosis Skin: No rash. Psych: Appropriate affect, alert and oriented to person, place and time. Neuro: alert and oriented x 3. Moving all extermities - Constitutional Vitals: Vital Signs Temp Pulse Resp BP Pulse Ox 98.7 F 81 16 108/65 99 05/12/19 12:13 05/12/19 12:13 05/12/19 12:13 05/12/19 12:13 05/12/19 12:13 Temperature -Last 24 Hours Temperature 98.7 F Temperature 98.0 F Temperature 98.8 F Temperature 98.8 F - Labs CBC & Chem 7: 05/12/19 Unknown 05/12/19 Unknown Labs: Abnormal lab results 05/11/19 05/12/19 05/12/19 Range/Units 05:07 Unknown Unknown WBC 17.1 H (4.5-11.0) K/mm3 RBC 2.41 L (3.65-5.03) M/mm3 Hgb 7.2 L (11.8-15.2) gm/dl Hct 21.0 L (35.5-45.6) % RDW 19.5 H (13.2-15.2) % Seg Neuts % (Manual) 72.0 H (40.0-70.0) % Lymphocytes % (Manual) 13.0 L (13.4-35.0) % Monocytes % (Manual) 12.0 H 12.0 H (0.0-7.3) % Seg Neutrophils # Man 10.0 H 12.3 H (1.8-7.7) K/mm3 Monocytes # (Manual) 1.8 H 2.1 H (0.0-0.8) K/mm3 Basophils # (Manual) 0.2 H (0.0-0.1) K/mm3 Sodium 134 L (137-145) mmol/L Creatinine 0.2 L (0.8-1.5) mg/dL
--- NOTE | 2019-05-12 18:50 | Progress Note ---
Assessment and Plan Assessment and plan: Patient was admitted with sickle cell anemia and pneumonia, Received antibiotics.Discharge home when cleared by supervisor beam department --Atypical Multifocal pneumonia:present on admission Hospital-acquired versus community-acquired pneumonia continue antibiotics,f/u cultures , ID following Minimal improvement in the follow-up chest x-ray ID consult --Sepsis:Leukocytosis:sec to pneumonia on Aztreonem ,Levaquin, and vancomycin f/u cultures, ID following -- Severe sickle cell anemia: 2 units PRBC transfusion Hemoglobin improved , mild drop today Monitor H /H and Transfuse additional as needed --Sickle cell crisis; O2,IV fluids,pain medications Retic count gradually improving, hematology following --Elevated ferritin; I/V Deferoxamine 3/3 today per hematology --Transaminitis; secondary to underlying sickle cell disease Monitor closely, GI evaluation if needed --DVT prophylaxis: SCD Plan of care d/w patient and his nurse Hepatology evaluation and recommendations noted and appreciated Disposition; continue inpatient management ID cleared for discharge, completed antibiotics DC home tomorrow if Hematology clears History Interval history: Patient seen and examined,medical records reviewed. Patient c/o gen body pins. Vital signs reviewed Hospitalist Physical - Constitutional Vitals: Temp Pulse Resp BP Pulse Ox 98.2 F 78 16 127/77 99 05/12/19 16:58 05/12/19 16:58 05/12/19 16:58 05/12/19 16:58 05/12/19 16:58 General appearance: Present: no acute distress, well-nourished - EENT Eyes: Present: PERRL, EOM intact - Neck Neck: Present: supple, normal ROM - Respiratory Respiratory effort: normal Respiratory: bilateral: diminished, negative: rales, rhonchi, wheezing - Cardiovascular Rhythm: regular Heart Sounds: Present: S1 & S2 - Extremities Extremities: no ischemia, No edema - Abdominal General gastrointestinal: soft, non-tender, non-distended, normal bowel sounds - Integumentary Integumentary: Present: clear, warm - Psychiatric Psychiatric: appropriate mood/affect, cooperative - Neurologic Neurologic: CNII-XII intact, moves all extremities Results - Labs CBC & Chem 7: 05/12/19 Unknown 05/12/19 Unknown Labs: Laboratory Last Values WBC 17.1 K/mm3 (4.5-11.0) H 05/12/19 Unknown RBC 2.41 M/mm3 (3.65-5.03) L 05/12/19 Unknown Hgb 7.2 gm/dl (11.8-15.2) L 05/12/19 Unknown Hct 21.0 % (35.5-45.6) L 05/12/19 Unknown MCV 87 fl (84-94) 05/12/19 Unknown MCH 30 pg (28-32) 05/12/19 Unknown MCHC 34 % (32-34) 05/12/19 Unknown RDW 19.5 % (13.2-15.2) H 05/12/19 Unknown Plt Count 283 K/mm3 (140-440) 05/12/19 Unknown Lymph % (Auto) 12.4 % (13.4-35.0) L 05/09/19 Unknown [place] % (Auto) Transit [employer]ic 05/12/19 Unknown Eos % (Auto) 1.9 % (0.0-4.3) 05/09/19 Unknown Baso % (Auto) 0.5 % (0.0-1.8) 05/09/19 Unknown Lymph # 2.1 K/mm3 (1.2-5.4) 05/09/19 Unknown [place] # 2.4 K/mm3 (0.0-0.8) H 05/09/19 Unknown Eos # 0.3 K/mm3 (0.0-0.4) 05/09/19 Unknown Baso # 0.1 K/mm3 (0.0-0.1) 05/09/19 Unknown Add Manual Diff Complete 05/12/19 Unknown Total Counted 100 05/12/19 Unknown Seg Neutrophils % 71.1 % (40.0-70.0) H 05/09/19 Unknown Seg Neuts % (Manual) 72.0 % (40.0-70.0) H 05/12/19 Unknown Band Neutrophils % 0 % 05/12/19 Unknown Lymphocytes % (Manual) 13.0 % (13.4-35.0) L 05/12/19 Unknown Reactive Lymphs % (Man) 0 % 05/12/19 Unknown Monocytes % (Manual) 12.0 % (0.0-7.3) H 05/12/19 Unknown Eosinophils % (Manual) 2.0 % (0.0-4.3) 05/12/19 Unknown Basophils % (Manual) 1.0 % (0.0-1.8) 05/12/19 Unknown Metamyelocytes % 0 % 05/12/19 Unknown Myelocytes % 0 % 05/12/19 Unknown Promyelocytes % 0 % 05/12/19 Unknown Blast Cells % 0 % 05/12/19 Unknown Nucleated RBC % Not Reportable 05/12/19 Unknown Seg Neutrophils # 12.2 K/mm3 (1.8-7.7) H 05/09/19 Unknown Seg Neutrophils # Man 12.3 K/mm3 (1.8-7.7) H 05/12/19 Unknown Band Neutrophils # 0.0 K/mm3 05/12/19 Unknown Lymphocytes # (Manual) 2.2 K/mm3 (1.2-5.4) 05/12/19 Unknown Abs React Lymphs (Man) 0.0 K/mm3 05/12/19 Unknown Monocytes # (Manual) 2.1 K/mm3 (0.0-0.8) H 05/12/19 Unknown Eosinophils # (Manual) 0.3 K/mm3 (0.0-0.4) 05/12/19 Unknown Basophils # (Manual) 0.2 K/mm3 (0.0-0.1) H 05/12/19 Unknown Metamyelocytes # 0.0 K/mm3 05/12/19 Unknown Myelocytes # 0.0 K/mm3 05/12/19 Unknown Promyelocytes # 0.0 K/mm3 05/12/19 Unknown Blast Cells # 0.0 K/mm3 05/12/19 Unknown WBC Morphology Not Reportable 05/12/19 Unknown Hypersegmented Neuts Not Reportable 05/12/19 Unknown Hyposegmented Neuts Not Reportable 05/12/19 Unknown Hypogranular Neuts Not Reportable 05/12/19 Unknown Smudge Cells Not Reportable 05/12/19 Unknown Toxic Granulation Not Reportable 05/12/19 Unknown Toxic Vacuolation Not Reportable 05/12/19 Unknown Dohle Bodies Not Reportable 05/12/19 Unknown Pelger-Huet Anomaly Not Reportable 05/12/19 Unknown Christian Rods Not Reportable 05/12/19 Unknown Platelet Estimate Consistent w auto 05/12/19 Unknown Clumped Platelets Not Reportable 05/12/19 Unknown Plt Clumps, EDTA Not Reportable 05/12/19 Unknown Large Platelets 1+ 10/11/19 Unknown Giant Platelets Not Reportable 05/12/19 Unknown Platelet Satelliting Not Reportable 05/12/19 Unknown Plt Morphology Comment Not Reportable 05/12/19 Unknown RBC Morphology Not Reportable 05/12/19 Unknown Dimorphic RBCs Not Reportable 05/12/19 Unknown Polychromasia Not Reportable 05/12/19 Unknown Hypochromasia Not Reportable 05/12/19 Unknown Poikilocytosis 1+ 05/12/19 Unknown Anisocytosis 1+ 05/12/19 Unknown Microcytosis Not Reportable 05/12/19 Unknown Macrocytosis Not Reportable 05/12/19 Unknown Spherocytes Not Reportable 05/12/19 Unknown Pappenheimer Bodies Not Reportable 05/12/19 Unknown Sickle Cells 1+ 05/12/19 Unknown Target Cells 1+ 05/12/19 Unknown Tear Drop Cells Not Reportable 05/12/19 Unknown Ovalocytes Not Reportable 05/12/19 Unknown Helmet Cells Not Reportable 05/12/19 Unknown Grant-Medanales Bodies Not Reportable 05/12/19 Unknown Chandler Rings Not Reportable 05/12/19 Unknown Nolberto Cells Not Reportable 05/12/19 Unknown Bite Cells Not Reportable 05/12/19 Unknown Crenated Cell Not Reportable 05/12/19 Unknown Elliptocytes Not Reportable 05/12/19 Unknown Acanthocytes (Spur) Not Reportable 05/12/19 Unknown Rouleaux Not Reportable 05/12/19 Unknown Hemoglobin C Crystals Not Reportable 05/12/19 Unknown Schistocytes Not Reportable 05/12/19 Unknown Malaria parasites Not Reportable 05/12/19 Unknown Percent Retic 13.96 % (0.78-2.58) H 05/08/19 18:18 You Bodies Not Reportable 05/12/19 Unknown Hem Pathologist Commnt No 05/12/19 Unknown Sodium 134 mmol/L (137-145) L 05/12/19 Unknown Potassium 4.3 mmol/L (3.6-5.0) 05/12/19 Unknown Chloride 99.3 mmol/L (98-107) 05/12/19 Unknown Carbon Dioxide 25 mmol/L (22-30) 05/12/19 Unknown Anion Gap 14 mmol/L 05/12/19 Unknown BUN 11 mg/dL (9-20) 05/12/19 Unknown Creatinine 0.2 mg/dL (0.8-1.5) L 05/12/19 Unknown Estimated GFR > 60 ml/min 05/12/19 Unknown BUN/Creatinine Ratio 55 % 05/12/19 Unknown Glucose 97 mg/dL (75-100) 05/12/19 Unknown Calcium 8.7 mg/dL (8.4-10.2) 05/12/19 Unknown Iron 38 ug/dL (49-181) L 05/09/19 Unknown TIBC 144 mcg/dL (250-450) L 05/09/19 Unknown Ferritin > 36478.0 ng/mL (13.0-400.0) H 05/09/19 Unknown Total Bilirubin 4.60 mg/dL (0.1-1.2) H 05/09/19 Unknown Direct Bilirubin 1.3 mg/dL (0-0.2) H 05/06/19 04:12 Indirect Bilirubin 3.1 mg/dL 05/06/19 04:12 AST 119 units/L (5-40) H 05/09/19 Unknown ALT 70 units/L (7-56) H 05/09/19 Unknown Alkaline Phosphatase 157 units/L (35-129) H 05/09/19 Unknown Lactate Dehydrogenase 440 units/L (91-180) H 05/08/19 06:54 Total Protein 7.0 g/dL (6.3-8.2) 05/09/19 Unknown Albumin 3.5 g/dL (3.9-5) L 05/09/19 Unknown Albumin/Globulin Ratio 1.0 % 05/09/19 Unknown Urine Color Yellow (Yellow) 05/06/19 09:17 Urine Turbidity Clear (Clear) 05/06/19 09:17 Urine pH 6.0 (5.0-7.0) 05/06/19 09:17 Ur Specific [place] 1.006 (1.003-1.030) 05/06/19 09:17 Urine Protein <15 mg/dl mg/dL (Negative) 05/06/19 09:17 Urine Glucose (UA) Neg mg/dL (Negative) 05/06/19 09:17 Urine Ketones Neg mg/dL (Negative) 05/06/19 09:17 Urine Blood Sm (Negative) 05/06/19 09:17 Urine Nitrite Neg (Negative) 10/05/19 09:17 Urine Bilirubin Neg (Negative) 05/06/19 09:17 Urine Urobilinogen 4.0 mg/dL (<2.0) 05/06/19 09:17 Ur Leukocyte Esterase Neg (Negative) 05/06/19 09:17 Urine WBC (Auto) < 1.0 /HPF (0.0-6.0) 05/06/19 09:17 Urine RBC (Auto) 2.0 /HPF (0.0-6.0) 05/06/19 09:17 Vancomycin Trough 24.8 ug/mL (5.0-20.0) H 05/12/19 14:23 Blood Type O POSITIVE 05/06/19 04:47 Antibody Screen Negative 05/06/19 04:47 Crossmatch See Detail 05/06/19 04:47 Active Medications - Current Medications Current Medications: Generic Name Dose Route Start Last Admin Trade Name Freq PRN Reason Stop Dose Admin Acetaminophen 650 mg 05/09/19 04:54 05/09/19 05:08 Tylenol PO 650 mg Q4H PRN Administration Pain, Mild (1-3), temp>100.5 Bisacodyl 10 mg 05/06/19 02:47 Dulcolax [place] QDAY PRN Constipation unrelieved by MOM Carvedilol 25 mg 05/06/19 10:00 05/12/19 09:25 Coreg PO 25 mg BID WAYNE Administration Diphenhydramine HCl 25 mg 05/06/19 05:07 05/12/19 14:31 Benadryl IV 25 mg Q6H PRN Administration Itching Folic Acid 1 mg 05/06/19 10:00 05/12/19 09:26 Folvite PO 1 mg QDAY WAYNE Administration Hydromorphone HCl 2 mg 05/06/19 15:42 05/12/19 17:35 Dilaudid IV 2 mg Q3H PRN Administration Pain , Severe (7-10) Hydroxyurea 1,000 mg 05/12/19 10:00 05/12/19 09:32 Hydrea PO 1,000 mg QDAY WAYNE Administration Dextrose/Sodium Chloride 1,000 mls @ 175 mls/hr 05/06/19 16:00 05/12/19 11:29 D5ns 0.2% IV 175 mls/hr DIRECT WAYNE Administration Vancomycin HCl 1 gm in 250 mls @ 250 mls/hr 05/12/19 04:00 05/12/19 11:29 Vancomycin/Ns 1 Gm/250 Ml IV 250 mls/hr Q8H WAYNE Administration Ketorolac Tromethamine 30 mg 05/08/19 19:05 Toradol IV 05/13/19 19:04 Q6H PRN Pain, Moderate (4-6) Levofloxacin 750 mg 05/11/19 10:00 05/12/19 09:26 Levaquin PO 750 mg DAILY WAYNE Administration Magnesium Hydroxide 30 ml 05/06/19 02:47 Milk Of Magnesia PO Q4H PRN Constipation Morphine Sulfate 30 mg 05/06/19 06:00 05/12/19 14:32 Ms Contin Er PO 30 mg Q8HR WAYNE Administration Multivitamins 1 each 05/06/19 10:00 05/12/19 09:26 Theragran Tab PO 1 each QDAY WAYNE Administration Mupirocin 1 applic 05/08/19 22:00 05/12/19 09:27 Bactroban 2% NS 1 applic BID WAYNE Administration Ondansetron HCl 4 mg 05/06/19 02:47 05/11/19 00:58 Zofran IV 4 mg Q4H PRN Administration Nausea And Vomiting Senna 17.2 mg 05/06/19 22:00 05/11/19 21:30 Senokot PO 17.2 mg QHS WAYNE Administration Nutrition/Malnutrition Assess - Dietary Evaluation Nutrition/Malnutrition Findings: Nutrition Notes Start: 05/06/19 09:09 Freq: Status: Active Protocol: Document 05/08/19 12:43 RM (Rec: 05/08/19 12:51 RM [id number]) Nutrition Notes Initial or Follow up Reassessment Current Diagnosis Hypertension Other Pertinent Diagnosis Sickle Cell anemia Current Diet Regular w/Ensure Enlive [place] TID Labs/Tests Reviewed Pertinent Medications Reviewed Height 5 ft 6 in Weight 60.3 kg [place] Body Weight (kg) 64.54 BMI 21.4 Subjective/Other Information Pt stated that his appetite is good and that he eats most or all of his meals. Also stated that he drinks the Ensure Enlive. Percent of energy/protein needs met: 159%/160% Burn Absent Trauma Absent Minimum of two criteria Y #1 Nutrition Diagnosis Malnutrition Diagnosis Progress(for reassessment Continues documentation) Is patient on ventilator? No Is Patient Ambulatory and/or Out of Bed Yes REE-([facility]-ambulatory/OOB) [ [id number] [id number]] Calculation Used for Recommendations [facility] Additional Notes Protein needs are 68-85g (1.2- 1.5g/kg) Fluid needs are 1ml/kcal Nutrition Intervention Change Diet Order: Continue Add Supplement/Snack (indicate name/kcal Ensure Enlive [place] BID /protein ) Provides kCal: 700 Provides Protein (gm) 40 Goal #1 Continue to meet at least 75% of calorie and protein needs via PO and ONS intakes Goal #2 Wt maintenance Anticipated Discharge Needs: Regular diet with ONS BID-TID Follow-Up By: 05/15/19 Additional Comments Follow for PO and ONS intakes
[2019-05-12] MEDS: SENOKOT PO SCH (22:21)
[2019-05-13] MEDS: DILAUDID IV PRN ×8 (00:02→23:17)
[2019-05-13] MEDS: D5NS 0.2% 1,000 ML IV SCH ×4 (02:04→23:22)
[2019-05-13] MEDS: BENADRYL IV PRN ×4 (03:08→23:16)
[2019-05-13] MEDS: VANCOMYCIN/NS 1 GM/250 ML 1 GM/250 ML BAG IV SCH ×3 (04:18→20:01)
[2019-05-13] MEDS: MS CONTIN ER PO SCH ×3 (05:55→22:01)
[2019-05-13 07:14] LABS: Hematocrit 20.1 % (35.5-45.6); Mean Corpuscular HGB Conc 35 % (32-34); Mean Corpuscular Volume 87 fl (84-94); Platelet Count 325 K/mm3 (140-440); Red Cell Distribution Width 19.2 % (13.2-15.2)
[2019-05-13 07:29] LABS: BUN/Creatinine Ratio 25; Blood Urea Nitrogen 10 mg/dL (9-20); Calcium 8.8 mg/dL (8.4-10.2); Hemolysis Index 0
[2019-05-13] MEDS: LEVAQUIN PO SCH (09:22)
[2019-05-13] MEDS: THERAGRAN Tab PO SCH (09:22)
[2019-05-13] MEDS: FOLVITE PO SCH (09:22)
[2019-05-13] MEDS: COREG PO SCH ×2 (09:22→22:01)
[2019-05-13] MEDS: BACTROBAN 2% NS SCH ×2 (09:23→22:07)
[2019-05-13] MEDS: HYDREA PO SCH (09:25)
[2019-05-13 10:44] LABS: Basophils % (Manual) 0 % (0.0-1.8); Total Cells Counted 100
[2019-05-13 10:45] LABS: Anisocytosis Few; Giant Platelets Few; Hypochromasia 1+; Platelet Estimate Consistent w Auto; Sickle Cells Rare; Target Cells Few
--- NOTE | 2019-05-13 11:42 | Progress Note ---
Assessment and Plan Patient was admitted with sickle cell anemia and pneumonia, Receiving antibiotics. -Atypical Multifocal pneumonia:present on admission Hospital-acquired versus community-acquired pneumonia continue antibiotics,f/u cultures to growht so far, ID following Minimal improvement in the follow-up chest x-ray ID consult -Sepsis:Leukocytosis:sec to pneumonia on Aztreonem ,Levaquin, and vancomycin f/u cultures, ID following - Severe sickle cell anemia: s/p 2 units PRBC transfusion Hemoglobin improved , mild drop today Monitor H /H and Transfuse additional as needed -Sickle cell crisis; O2, IV fluids,pain medications Retic count gradually improving, hematology following -Elevated ferritin; I/V Deferoxamine 3/3 today per hematology -Transaminitis; secondary to underlying sickle cell disease Monitor closely, GI evaluation if needed -DVT prophylaxis: SCD Plan of care d/w patient and his nurse Hepatology evaluation and recommendations noted and appreciated Disposition; continue inpatient management ID cleared for discharge, completed antibiotics DC home tomorrow if Hematology clears Subjective Date of service: 05/13/19 Principal diagnosis: sickle cell crisis with anemia Interval history: No seen and exaine. c/o [place] knee pain. No fever or chest pain Objective - Constitutional Vitals: Vital Signs - 12hr 05/13/19 04:36 Temperature 98.2 F Pulse Rate 77 Respiratory 17 Rate Blood Pressure 113/69 [Left] O2 Sat by Pulse 95 Oximetry General appearance: Present: no acute distress, well-nourished - EENT Eyes: PERRL, EOM intact Ears: bilateral: normal - Neck Neck: supple, normal ROM - Respiratory Respiratory: bilateral: CTA - Cardiovascular Rhythm: regular Heart Sounds: Present: S1 & S2. Absent: gallop, rub Extremities: pulses intact, No edema, normal color, Full ROM - Gastrointestinal General gastrointestinal: Present: soft, non-tender, non-distended, normal bowel sounds - Integumentary Integumentary: clear, warm, dry - Musculoskeletal Musculoskeletal: 1, strength equal bilaterally - Neurologic Neurologic: moves all extremities - Psychiatric Psychiatric: memory intact, appropriate mood/affect, intact judgment & insight - Labs CBC & Chem 7: 05/14/19 04:40 05/13/19 06:53 Labs: Abnormal lab results 05/12/19 05/13/19 05/13/19 Range/Units 14:23 06:53 06:53 WBC 18.3 H (4.5-11.0) K/mm3 RBC 2.30 L (3.65-5.03) M/mm3 Hgb 7.0 L (11.8-15.2) gm/dl Hct 20.1 L (35.5-45.6) % MCHC 35 H (32-34) % RDW 19.2 H (13.2-15.2) % Seg Neuts % (Manual) 79.0 H (40.0-70.0) % Lymphocytes % (Manual) 7.0 L (13.4-35.0) % Monocytes % (Manual) 10.0 H (0.0-7.3) % Seg Neutrophils # Man 14.5 H (1.8-7.7) K/mm3 Monocytes # (Manual) 1.8 H (0.0-0.8) K/mm3 Eosinophils # (Manual) 0.5 H (0.0-0.4) K/mm3 Sodium 136 L (137-145) mmol/L Creatinine 0.4 L D (0.8-1.5) mg/dL Glucose 134 H (75-100) mg/dL Vancomycin Trough 24.8 H (5.0-20.0) ug/mL
--- NOTE | 2019-05-13 16:30 | Progress Note ---
Assessment and Plan - Patient Problems (1) Sickle cell pain crisis Current Visit: Yes Status: Acute Plan to address problem: pain control, supportive care. (2) Acute hemolytic anemia Current Visit: No Status: Acute Plan to address problem: Transfusion replacement. (3) Dehydration Current Visit: Yes Status: Acute Plan to address problem: Hydration. (4) Iron overload due to repeated red blood cell transfusions Current Visit: Yes Status: Chronic Plan to address problem: monitor iron level., and tx if needed. Subjective Date of service: 05/13/19 Principal diagnosis: sickle cell crisis with anemia Interval history: Patient seen/examined, resting in bed, spiked fever last night, better now , with tylenol. Labs reviewed, iron, and WBC high, will try DESF tx. He will co ntinue with IV ABX, cultures still negative, so far.If continue to spike fever, may add vanc. Patient seen/examined, resting in bed,labs reviewed, case d/w patient. [place] from ID/co reviewed. I seriously doubt , if patient has sepsis. the leukocytosis, may very well be due to crisis, and the elevated LLFTs are clearly due to Iron over load,, and in part, hemolytic process. which is chronic.He will continue with Desferoamine.the CXR findings, is consistent with sickle cell crisis chest. findings. Patient seen/examined, resting in bed, notes reviewed, will continue to follow you ,with current management. Patient seen/examined, resting in bed, labs reviewed, case d/w patient.WBC has risen, and so has the feretin. He has completed 3 doses of DESF. Patient seen/examined, resting in bed, labs reviewed, case d/w patient. WBc still going up. reactive process vs SIRs. pain at 6/10.continue to monitor, and d/c plans, also ongoing. Objective - Constitutional Vitals: Vital Signs - 12hr 05/13/19 05/13/19 04:36 12:14 Temperature 98.2 F 98.4 F Pulse Rate 77 83 Respiratory 17 16 Rate Blood Pressure 103/65 Blood Pressure 113/69 [Left] O2 Sat by Pulse 95 98 Oximetry General appearance: Present: no acute distress, mild distress, well-nourished - EENT Eyes: PERRL, EOM intact ENT: hearing intact, clear oral mucosa Ears: bilateral: normal - Neck Neck: supple, normal ROM - Respiratory Respiratory effort: normal Respiratory: bilateral: CTA - Breasts Breasts: deferred - Cardiovascular Rhythm: regular Heart Sounds: Present: S1 & S2. Absent: gallop, rub Extremities: pulses intact, No edema, normal color, Full ROM - Gastrointestinal General gastrointestinal: Present: soft, non-tender, non-distended, normal bowel sounds Rectal Exam: deferred - Genitourinary Male genitourinary: deferred - Integumentary Integumentary: clear, warm, dry - Musculoskeletal Musculoskeletal: 1, strength equal bilaterally - Neurologic Neurologic: moves all extremities - Psychiatric Psychiatric: memory intact, appropriate mood/affect, intact judgment & insight - Labs CBC & Chem 7: 05/13/19 06:53 05/13/19 06:53 Labs: Abnormal lab results 05/13/19 05/13/19 Range/Units 06:53 06:53 WBC 18.3 H (4.5-11.0) K/mm3 RBC 2.30 L (3.65-5.03) M/mm3 Hgb 7.0 L (11.8-15.2) gm/dl Hct 20.1 L (35.5-45.6) % MCHC 35 H (32-34) % RDW 19.2 H (13.2-15.2) % Seg Neuts % (Manual) 79.0 H (40.0-70.0) % Lymphocytes % (Manual) 7.0 L (13.4-35.0) % Monocytes % (Manual) 10.0 H (0.0-7.3) % Seg Neutrophils # Man 14.5 H (1.8-7.7) K/mm3 Monocytes # (Manual) 1.8 H (0.0-0.8) K/mm3 Eosinophils # (Manual) 0.5 H (0.0-0.4) K/mm3 Sodium 136 L (137-145) mmol/L Creatinine 0.4 L D (0.8-1.5) mg/dL Glucose 134 H (75-100) mg/dL Medications & Allergies - Medications Allergies/Adverse Reactions: Allergies ceftriaxone sodium [From Rocephin] Allergy (Verified 03/09/18 07:35) Unknown meperidine HCl [From Demerol] Allergy (Verified 03/09/18 07:35) Unknown Home Medications: Home Medications Medication Instructions Recorded Confirmed Last Taken Type Folic Acid [Folvite] 1 mg PO QDAY #30 tablet 07/26/17 05/06/19 05/09/18 Rx Morphine ER [Ms Contin ER] 60 mg PO Q12H 03/09/18 05/06/19 05/09/18 History Oxycodone HCl [oxyCODONE] 10 mg PO Q8H 03/09/18 05/06/19 05/09/18 History Carvedilol [Coreg] 25 mg PO BID 05/10/18 05/06/19 09/25/18 History Hydrea 1,000 mg PO DAILY 09/27/18 05/06/19 Unknown History Active Medications: Generic Name Dose Route Start Last Admin Trade Name Freq PRN Reason Stop Dose Admin Acetaminophen 650 mg 05/09/19 04:54 05/09/19 05:08 Tylenol PO 650 mg Q4H PRN Administration Pain, Mild (1-3), temp>100.5 Bisacodyl 10 mg 05/06/19 02:47 Dulcolax [place] QDAY PRN Constipation unrelieved by MOM Carvedilol 25 mg 05/06/19 10:00 05/13/19 09:22 Coreg PO 25 mg BID WAYNE Administration Diphenhydramine HCl 25 mg 05/06/19 05:07 05/13/19 16:14 Benadryl IV 25 mg Q6H PRN Administration Itching Folic Acid 1 mg 05/06/19 10:00 05/13/19 09:22 Folvite PO 1 mg QDAY WAYNE Administration Hydromorphone HCl 2 mg 05/06/19 15:42 05/13/19 16:14 Dilaudid IV 2 mg Q3H PRN Administration Pain , Severe (7-10) Hydroxyurea 1,000 mg 05/12/19 10:00 05/13/19 09:25 Hydrea PO 1,000 mg QDAY WAYNE Administration Dextrose/Sodium Chloride 1,000 mls @ 175 mls/hr 05/06/19 16:00 05/13/19 16:14 D5ns 0.2% IV 175 mls/hr DIRECT WAYNE Administration Vancomycin HCl 1 gm in 250 mls @ 250 mls/hr 05/12/19 04:00 05/13/19 12:36 Vancomycin/Ns 1 Gm/250 Ml IV 250 mls/hr Q8H WAYNE Administration Ketorolac Tromethamine 30 mg 05/08/19 19:05 Toradol IV 05/13/19 19:04 Q6H PRN Pain, Moderate (4-6) Levofloxacin 750 mg 05/11/19 10:00 05/13/19 09:22 Levaquin PO 750 mg DAILY WAYNE Administration Magnesium Hydroxide 30 ml 05/06/19 02:47 Milk Of Magnesia PO Q4H PRN Constipation Morphine Sulfate 30 mg 05/06/19 06:00 05/13/19 14:20 Ms Contin Er PO 30 mg Q8HR WAYNE Administration Multivitamins 1 each 05/06/19 10:00 05/13/19 09:22 Theragran Tab PO 1 each QDAY WAYNE Administration Mupirocin 1 applic 05/08/19 22:00 05/13/19 09:23 Bactroban 2% NS 1 applic BID WAYNE Administration Ondansetron HCl 4 mg 05/06/19 02:47 05/11/19 00:58 Zofran IV 4 mg Q4H PRN Administration Nausea And Vomiting Senna 17.2 mg 05/06/19 22:00 05/12/19 22:21 Senokot PO 17.2 mg QHS WAYNE Administration
--- NOTE | 2019-05-13 18:16 | XRay Report ---
CHEST 2 VIEWS INDICATION / CLINICAL INFORMATION: Pneumonia. COMPARISON: 05/10/19 FINDINGS: SUPPORT DEVICES: Right Port-A-Cath is unchanged. HEART / MEDIASTINUM: Heart is enlarged but stable. LUNGS / PLEURA: Streaky bilateral pulmonary opacities are unchanged. No pneumothorax. ADDITIONAL FINDINGS: Osseous changes in the thoracic spine characteristic of sickle cell disease. IMPRESSION: 1. No significant change. Signer Name: Breana Moise MD Signed: 05/13/2019 6:12 PM Workstation Name: [id number]
[2019-05-13] MEDS: SENOKOT PO SCH (22:01)
[2019-05-14] MEDS: DILAUDID IV PRN ×8 (02:26→23:24)
[2019-05-14] MEDS: VANCOMYCIN/NS 1 GM/250 ML 1 GM/250 ML BAG IV SCH ×3 (04:31→19:54)
[2019-05-14] MEDS: D5NS 0.2% 1,000 ML IV SCH ×3 (04:31→23:25)
[2019-05-14 04:55] LABS: Hemoglobin 6.7 gm/dl (11.8-15.2); Mean Corpuscular HGB Conc 34 % (32-34); Mean Corpuscular Volume 88 fl (84-94); Platelet Count 327 K/mm3 (140-440); Red Blood Count 2.23 M/mm3 (3.65-5.03); Red Cell Distribution Width 18.6 % (13.2-15.2)
[2019-05-14 04:59] LABS: Hematocrit 19.6 % (35.5-45.6)
[2019-05-14] MEDS ORDERED: NACL 0.9% 500 ML 500 ML IV ONE (05:17)
[2019-05-14] MEDS: MS CONTIN ER PO SCH ×3 (06:19→21:51)
[2019-05-14 07:42] LABS: Anisocytosis 1+; Sickle Cells 1+; Target Cells Few; Total Cells Counted 100
[2019-05-14 07:43] LABS: Hypochromasia 1+; Macrocytosis Rare
[2019-05-14 07:44] LABS: Large Platelets Few; Platelet Estimate Cons
[2019-05-14] MEDS ORDERED: NACL 0.9% 500 ML 500 ML IV NR (08:00)
[2019-05-14] MEDS: BENADRYL IV PRN ×3 (08:59→23:24)
[2019-05-14] MEDS: COREG PO SCH ×2 (09:01→21:53)
[2019-05-14] MEDS: THERAGRAN Tab PO SCH (09:02)
[2019-05-14] MEDS: FOLVITE PO SCH (09:02)
[2019-05-14] MEDS: LEVAQUIN PO SCH (09:02)
[2019-05-14] MEDS: HYDREA PO SCH (09:02)
--- NOTE | 2019-05-14 09:36 | Progress Note ---
Assessment and Plan Patient was admitted with sickle cell anemia and pneumonia, Receiving antibiotics. -Atypical Multifocal pneumonia:present on admission Hospital-acquired versus community-acquired pneumonia continue antibiotics,f/u cultures to growht so far, ID following Minimal improvement in the follow-up chest x-ray ID consult -Sepsis:Leukocytosis:sec to pneumonia on Aztreonem ,Levaquin, and vancomycin f/u cultures, ID following - Severe sickle cell anemia: s/p 2 units PRBC transfusion. 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 -Sickle cell crisis; O2, IV fluids,pain medications Retic count gradually improving, hematology following -Elevated ferritin; I/V Deferoxamine 3/3 today per hematology -Transaminitis; secondary to underlying sickle cell disease Monitor closely, GI evaluation if needed -DVT prophylaxis: SCD Plan of care d/w patient and his nurse Hepatology evaluation and recommendations noted and appreciated Disposition; continue inpatient management ID cleared for discharge, completed antibiotics DC home tomorrow if Hematology clears Subjective Date of service: 05/14/19 Principal diagnosis: sickle cell crisis with anemia Interval history: No seen and examine. c/o Scott knee pain. No fever or chest pain Objective - Constitutional Vitals: Vital Signs - 12hr 05/13/19 05/13/19 05/13/19 22:00 22:01 22:02 Temperature 97.3 F L Pulse Rate 86 84 Respiratory 17 17 Rate Respiratory 17 Rate [ Generalized] Blood Pressure 123/79 123/79 O2 Sat by Pulse 99 Oximetry 05/13/19 05/13/19 05/13/19 23:01 23:17 23:47 Temperature Pulse Rate Respiratory 16 17 16 Rate Respiratory Rate [ Generalized] Blood Pressure O2 Sat by Pulse Oximetry 05/14/19 05/14/19 05/14/19 02:26 02:56 05:30 Temperature 97.5 F L Pulse Rate 74 Respiratory 17 16 20 Rate Respiratory Rate [ Generalized] Blood Pressure 121/77 O2 Sat by Pulse 98 Oximetry 05/14/19 05/14/19 05/14/19 06:06 06:19 06:36 Temperature Pulse Rate Respiratory 17 17 16 Rate Respiratory Rate [ Generalized] Blood Pressure O2 Sat by Pulse Oximetry 05/14/19 07:19 Temperature Pulse Rate Respiratory 16 Rate Respiratory Rate [ Generalized] Blood Pressure O2 Sat by Pulse Oximetry General appearance: Present: no acute distress, well-nourished - EENT Eyes: PERRL, EOM intact Ears: bilateral: normal - Neck Neck: supple, normal ROM - Respiratory Respiratory effort: normal Respiratory: bilateral: CTA - Cardiovascular Rhythm: regular Heart Sounds: Present: S1 & S2. Absent: gallop, rub Extremities: pulses intact, No edema, normal color, Full ROM - Gastrointestinal General gastrointestinal: Present: soft, non-tender, non-distended, normal bowel sounds - Integumentary Integumentary: clear, warm, dry - Musculoskeletal Musculoskeletal: 1, strength equal bilaterally - Neurologic Neurologic: moves all extremities - Psychiatric Psychiatric: memory intact, appropriate mood/affect, intact judgment & insight - Labs CBC & Chem 7: 05/15/19 03:05 05/13/19 06:53 Labs: Abnormal lab results 05/13/19 05/14/19 05/14/19 Range/Units 06:53 04:40 06:12 WBC 17.4 H (4.5-11.0) K/mm3 RBC 2.23 L (3.65-5.03) M/mm3 Hgb 6.7 L (11.8-15.2) gm/dl Hct 19.6 L* (35.5-45.6) % RDW 18.6 H (13.2-15.2) % Seg Neuts % (Manual) 79.0 H (40.0-70.0) % Lymphocytes % (Manual) 7.0 L (13.4-35.0) % Monocytes % (Manual) 10.0 H 8.0 H (0.0-7.3) % Seg Neutrophils # Man 14.5 H 10.6 H (1.8-7.7) K/mm3 Monocytes # (Manual) 1.8 H 1.4 H (0.0-0.8) K/mm3 Eosinophils # (Manual) 0.5 H (0.0-0.4) K/mm3 Basophils # (Manual) 0.2 H (0.0-0.1) K/mm3 Crossmatch See Detail
--- NOTE | 2019-05-14 09:55 | Progress Note ---
Assessment and Plan - Patient Problems (1) Sickle cell pain crisis Current Visit: Yes Status: Acute Plan to address problem: pain control, supportive care. (2) Acute hemolytic anemia Current Visit: No Status: Acute Plan to address problem: Transfusion replacement. (3) Dehydration Current Visit: Yes Status: Acute Plan to address problem: Hydration. (4) Iron overload due to repeated red blood cell transfusions Current Visit: Yes Status: Chronic Plan to address problem: monitor iron level., and tx if needed. Subjective Date of service: 05/14/19 Principal diagnosis: sickle cell crisis with anemia Interval history: Patient seen/examined, resting in bed, spiked fever last night, better now , with tylenol. Labs reviewed, iron, and WBC high, will try DESF tx. He will co ntinue with IV ABX, cultures still negative, so far.If continue to spike fever, may add vanc. Patient seen/examined, resting in bed,labs reviewed, case d/w patient. Niotes from ID/co reviewed. I seriously doubt , if patient has sepsis. the leukocytosis, may very well be due to crisis, and the elevated LLFTs are clearly due to Iron over load,, and in part, hemolytic process. which is chronic.He will continue with Desferoamine.the CXR findings, is consistent with sickle cell crisis chest. findings. Patient seen/examined, resting in bed, notes reviewed, will continue to follow you ,with current management. Patient seen/examined, resting in bed, labs reviewed, case d/w patient.WBC has risen, and so has the feretin. He has completed 3 doses of DESF. Patient seen/examined, resting in bed, labs reviewed, case d/w patient. WBc still going up. reactive process vs SIRs. pain at 6/10.continue to monitor, and d/c plans, also ongoing. Patient seen/examined, resting in bed, labs reviewed, and hgb low , will need replacement of PRBC 1 unit. Objective - Constitutional Vitals: Vital Signs - 12hr 05/13/19 05/13/19 05/13/19 22:00 22:01 22:02 Temperature 97.3 F L Pulse Rate 86 84 Respiratory 17 17 Rate Respiratory 17 Rate [ Generalized] Blood Pressure 123/79 123/79 O2 Sat by Pulse 99 Oximetry 05/13/19 05/13/19 05/13/19 23:01 23:17 23:47 Temperature Pulse Rate Respiratory 16 17 16 Rate Respiratory Rate [ Generalized] Blood Pressure O2 Sat by Pulse Oximetry 05/14/19 05/14/19 05/14/19 02:26 02:56 05:30 Temperature 97.5 F L Pulse Rate 74 Respiratory 17 16 20 Rate Respiratory Rate [ Generalized] Blood Pressure 121/77 O2 Sat by Pulse 98 Oximetry 05/14/19 05/14/19 05/14/19 06:06 06:19 06:36 Temperature Pulse Rate Respiratory 17 17 16 Rate Respiratory Rate [ Generalized] Blood Pressure O2 Sat by Pulse Oximetry 05/14/19 07:19 Temperature Pulse Rate Respiratory 16 Rate Respiratory Rate [ Generalized] Blood Pressure O2 Sat by Pulse Oximetry General appearance: Present: mild distress, well-nourished - EENT Eyes: PERRL, EOM intact ENT: hearing intact, clear oral mucosa Ears: bilateral: normal - Neck Neck: supple, normal ROM - Respiratory Respiratory effort: normal Respiratory: bilateral: CTA - Breasts Breasts: deferred - Cardiovascular Rhythm: regular Heart Sounds: Present: S1 & S2. Absent: gallop, rub Extremities: pulses intact, No edema, normal color, Full ROM - Gastrointestinal General gastrointestinal: Present: soft, non-tender, non-distended, normal bowel sounds Rectal Exam: deferred - Genitourinary Male genitourinary: deferred - Integumentary Integumentary: clear, warm, dry - Musculoskeletal Musculoskeletal: 1, strength equal bilaterally - Neurologic Neurologic: moves all extremities - Psychiatric Psychiatric: memory intact, appropriate mood/affect, intact judgment & insight - Labs CBC & Chem 7: 05/14/19 04:40 05/13/19 06:53 Labs: Abnormal lab results 05/13/19 05/14/19 05/14/19 Range/Units 06:53 04:40 06:12 WBC 17.4 H (4.5-11.0) K/mm3 RBC 2.23 L (3.65-5.03) M/mm3 Hgb 6.7 L (11.8-15.2) gm/dl Hct 19.6 L* (35.5-45.6) % RDW 18.6 H (13.2-15.2) % Seg Neuts % (Manual) 79.0 H (40.0-70.0) % Lymphocytes % (Manual) 7.0 L (13.4-35.0) % Monocytes % (Manual) 10.0 H 8.0 H (0.0-7.3) % Seg Neutrophils # Man 14.5 H 10.6 H (1.8-7.7) K/mm3 Monocytes # (Manual) 1.8 H 1.4 H (0.0-0.8) K/mm3 Eosinophils # (Manual) 0.5 H (0.0-0.4) K/mm3 Basophils # (Manual) 0.2 H (0.0-0.1) K/mm3 Crossmatch See Detail Medications & Allergies - Medications Allergies/Adverse Reactions: Allergies ceftriaxone sodium [From Rocephin] Allergy (Verified 03/09/18 07:35) Unknown meperidine HCl [From Demerol] Allergy (Verified 03/09/18 07:35) Unknown Home Medications: Home Medications Medication Instructions Recorded Confirmed Last Taken Type Folic Acid [Folvite] 1 mg PO QDAY #30 tablet 07/26/17 05/06/19 05/09/18 Rx Morphine ER [Ms Contin ER] 60 mg PO Q12H 03/09/18 05/06/19 05/09/18 History Oxycodone HCl [oxyCODONE] 10 mg PO Q8H 03/09/18 05/06/19 05/09/18 History Carvedilol [Coreg] 25 mg PO BID 05/10/18 05/06/19 09/25/18 History Hydrea 1,000 mg PO DAILY 09/27/18 05/06/19 Unknown History Active Medications: Generic Name Dose Route Start Last Admin Trade Name Freq PRN Reason Stop Dose Admin Acetaminophen 650 mg 05/09/19 04:54 05/09/19 05:08 Tylenol PO 650 mg Q4H PRN Administration Pain, Mild (1-3), temp>100.5 Bisacodyl 10 mg 05/06/19 02:[address] QDAY PRN Constipation unrelieved by MOM Carvedilol 25 mg 05/06/19 10:00 05/14/19 09:01 Coreg PO 25 mg BID WAYNE Administration Diphenhydramine HCl 25 mg 05/06/19 05:07 05/14/19 08:59 Benadryl IV 25 mg Q6H PRN Administration Itching Folic Acid 1 mg 05/06/19 10:00 05/14/19 09:02 Folvite PO 1 mg QDAY WAYNE Administration Hydromorphone HCl 3 mg 05/13/19 16:58 05/14/19 08:58 Dilaudid IV 3 mg Q3H PRN Administration Pain , Severe (7-10) Hydroxyurea 1,000 mg 05/12/19 10:00 05/14/19 09:02 Hydrea PO 1,000 mg QDAY WAYNE Administration Dextrose/Sodium Chloride 1,000 mls @ 175 mls/hr 05/06/19 16:00 05/14/19 04:31 D5ns 0.2% IV 175 mls/hr DIRECT WAYNE Administration Vancomycin HCl 1 gm in 250 mls @ 250 mls/hr 05/12/19 04:00 05/14/19 04:31 Vancomycin/Ns 1 Gm/250 Ml IV 250 mls/hr Q8H WYANE Administration Sodium Chloride 500 mls @ 0 mls/hr 05/14/19 08:00 Nacl 0.9% 500 Ml IV 05/14/19 10:00 ONCE NR As Directed Levofloxacin 750 mg 05/11/19 10:00 05/14/19 09:02 Levaquin PO 750 mg DAILY WAYNE Administration Magnesium Hydroxide 30 ml 05/06/19 02:47 Milk Of Magnesia PO Q4H PRN Constipation Morphine Sulfate 30 mg 05/06/19 06:00 05/14/19 06:19 Ms Contin Er PO 30 mg Q8HR WAYNE Administration Multivitamins 1 each 05/06/19 10:00 05/14/19 09:02 Theragran Tab PO 1 each QDAY WAYNE Administration Mupirocin 1 applic 05/08/19 22:00 05/13/19 22:07 Bactroban 2% NS 1 applic BID WAYNE Administration Ondansetron HCl 4 mg 05/06/19 02:47 05/11/19 00:58 Zofran IV 4 mg Q4H PRN Administration Nausea And Vomiting Senna 17.2 mg 05/06/19 22:00 05/13/19 22:01 Senokot PO 17.2 mg QHS WAYNE Administration
[2019-05-14] MEDS: BACTROBAN 2% NS SCH ×2 (12:36→21:53)
[2019-05-14] MEDS: TYLENOL PO PRN (12:42)
[2019-05-14] MEDS: SENOKOT PO SCH (21:53)
[2019-05-15] MEDS: DILAUDID IV PRN ×4 (03:00→12:13)
[2019-05-15 03:26] LABS: Hematocrit 22.1 % (35.5-45.6); Hemoglobin 7.6 gm/dl (11.8-15.2); Mean Corpuscular HGB Conc 35 % (32-34); Mean Corpuscular Volume 87 fl (84-94); Platelet Count 411 K/mm3 (140-440); Red Blood Count 2.55 M/mm3 (3.65-5.03)
[2019-05-15] MEDS: D5NS 0.2% 1,000 ML IV SCH (04:29)
[2019-05-15] MEDS: VANCOMYCIN/NS 1 GM/250 ML 1 GM/250 ML BAG IV SCH ×2 (04:29→12:14)
[2019-05-15] MEDS ORDERED: TYLENOL PR PRN (05:19)
[2019-05-15] MEDS: MS CONTIN ER PO SCH ×2 (06:01→14:10)
[2019-05-15] MEDS: BENADRYL IV PRN ×2 (06:05→12:13)
--- NOTE | 2019-05-15 09:59 | Progress Note ---
Assessment and Plan - Patient Problems (1) Sickle cell pain crisis Current Visit: Yes Status: Acute Plan to address problem: pain control, supportive care. (2) Acute hemolytic anemia Current Visit: No Status: Acute Plan to address problem: Transfusion replacement. (3) Dehydration Current Visit: Yes Status: Acute Plan to address problem: Hydration. (4) Iron overload due to repeated red blood cell transfusions Current Visit: Yes Status: Chronic Plan to address problem: monitor iron level., and tx if needed. Subjective Date of service: 05/15/19 Principal diagnosis: sickle cell crisis with anemia Interval history: Patient seen/examined, resting in bed, spiked fever last night, better now , with tylenol. Labs reviewed, iron, and WBC high, will try DESF tx. He will co ntinue with IV ABX, cultures still negative, so far.If continue to spike fever, may add vanc. Patient seen/examined, resting in bed,labs reviewed, case d/w patient. Niotes from ID/co reviewed. I seriously doubt , if patient has sepsis. the leukocytosis, may very well be due to crisis, and the elevated LLFTs are clearly due to Iron over load,, and in part, hemolytic process. which is chronic.He will continue with Desferoamine.the CXR findings, is consistent with sickle cell crisis chest. findings. Patient seen/examined, resting in bed, notes reviewed, will continue to follow you ,with current management. Patient seen/examined, resting in bed, labs reviewed, case d/w patient.WBC has risen, and so has the feretin. He has completed 3 doses of DESF. Patient seen/examined, resting in bed, labs reviewed, case d/w patient. WBc still going up. reactive process vs SIRs. pain at 6/10.continue to monitor, and d/c plans, also ongoing. Patient seen/examined, resting in bed, labs reviewed, and hgb low , will need replacement of PRBC 1 unit. Patient seen/examined, resting in bed, labs reviewed, improved, post transfusion of PRBC.He denies any new issues at this time, and pain level 4/10. Ok with me to D/C home. Objective - Constitutional Vitals: Vital Signs - 12hr 05/14/19 05/14/19 05/14/19 22:00 22:17 22:51 Temperature 99.9 F H Pulse Rate 87 Respiratory 18 17 Rate Respiratory 17 Rate [ Generalized] Blood Pressure 122/72 O2 Sat by Pulse 98 Oximetry 05/14/19 05/14/19 05/15/19 23:24 23:54 03:00 Temperature Pulse Rate Respiratory 18 17 18 Rate Respiratory Rate [ Generalized] Blood Pressure O2 Sat by Pulse Oximetry 05/15/19 05/15/19 05/15/19 03:30 04:06 06:01 Temperature 99.4 F Pulse Rate 83 Respiratory 17 20 17 Rate Respiratory Rate [ Generalized] Blood Pressure 115/72 O2 Sat by Pulse 99 Oximetry 05/15/19 05/15/19 05/15/19 06:06 06:36 07:01 Temperature Pulse Rate Respiratory 17 16 16 Rate Respiratory Rate [ Generalized] Blood Pressure O2 Sat by Pulse Oximetry General appearance: Present: no acute distress, well-nourished - EENT Eyes: PERRL, EOM intact ENT: hearing intact, clear oral mucosa Ears: bilateral: normal - Neck Neck: supple, normal ROM - Respiratory Respiratory effort: normal Respiratory: bilateral: CTA - Breasts Breasts: deferred - Cardiovascular Rhythm: regular Heart Sounds: Present: S1 & S2. Absent: gallop, rub Extremities: pulses intact, No edema, normal color, Full ROM - Gastrointestinal General gastrointestinal: Present: soft, non-tender, non-distended, normal bowel sounds Rectal Exam: deferred - Genitourinary Male genitourinary: deferred - Integumentary Integumentary: clear, warm, dry - Musculoskeletal Musculoskeletal: 1, strength equal bilaterally - Neurologic Neurologic: moves all extremities - Psychiatric Psychiatric: memory intact, appropriate mood/affect, intact judgment & insight - Labs CBC & Chem 7: 05/15/19 03:05 05/13/19 06:53 Labs: Abnormal lab results 05/14/19 05/14/19 05/14/19 Range/Units 06:12 12:45 12:45 WBC (4.5-11.0) K/mm3 RBC (3.65-5.03) M/mm3 Hgb (11.8-15.2) gm/dl Hct (35.5-45.6) % MCHC (32-34) % RDW (13.2-15.2) % Percent Retic 4.89 H (0.78-2.58) % Ferritin 80053.0 H (13.0-400.0) ng/mL Crossmatch See Detail 05/15/19 Range/Units 03:05 WBC 20.5 H (4.5-11.0) K/mm3 RBC 2.55 L (3.65-5.03) M/mm3 Hgb 7.6 L (11.8-15.2) gm/dl Hct 22.1 L (35.5-45.6) % MCHC 35 H (32-34) % RDW 18.0 H (13.2-15.2) % Percent Retic (0.78-2.58) % Ferritin (13.0-400.0) ng/mL Crossmatch Medications & Allergies - Medications Allergies/Adverse Reactions: Allergies ceftriaxone sodium [From Rocephin] Allergy (Verified 03/09/18 07:35) Unknown meperidine HCl [From Demerol] Allergy (Verified 03/09/18 07:35) Unknown Home Medications: Home Medications Medication Instructions Recorded Confirmed Last Taken Type Folic Acid [Folvite] 1 mg PO QDAY #30 tablet 07/26/17 05/06/19 05/09/18 Rx Morphine ER [Ms Contin ER] 60 mg PO Q12H 03/09/18 05/06/19 05/09/18 History Oxycodone HCl [oxyCODONE] 10 mg PO Q8H 03/09/18 05/06/19 05/09/18 History Carvedilol [Coreg] 25 mg PO BID 05/10/18 05/06/19 09/25/18 History Hydrea 1,000 mg PO DAILY 09/27/18 05/06/19 Unknown History Active Medications: Generic Name Dose Route Start Last Admin Trade Name Freq PRN Reason Stop Dose Admin Acetaminophen 650 mg 05/09/19 04:54 05/14/19 12:42 Tylenol PO 650 mg Q4H PRN Administration Pain, Mild (1-3), temp>100.5 Bisacodyl 10 mg 05/06/19 02:47 Dulcolax [place] QDAY PRN Constipation unrelieved by MOM Carvedilol 25 mg 05/06/19 10:00 05/14/19 21:53 Coreg PO 25 mg BID WAYNE Administration Diphenhydramine HCl 25 mg 05/06/19 05:07 05/15/19 06:05 Benadryl IV 25 mg Q6H PRN Administration Itching Folic Acid 1 mg 05/06/19 10:00 05/14/19 09:02 Folvite PO 1 mg QDAY WAYNE Administration Hydromorphone HCl 2 mg 05/14/19 15:29 05/15/19 09:03 Dilaudid IV 2 mg Q3H PRN Administration Pain , Severe (7-10) Hydroxyurea 1,000 mg 05/12/19 10:00 05/14/19 09:02 Hydrea PO 1,000 mg QDAY WAYNE Administration Dextrose/Sodium Chloride 1,000 mls @ 175 mls/hr 05/06/19 16:00 05/15/19 04:29 D5ns 0.2% IV 175 mls/hr DIRECT WAYNE Administration Vancomycin HCl 1 gm in 250 mls @ 250 mls/hr 05/12/19 04:00 05/15/19 04:29 Vancomycin/Ns 1 Gm/250 Ml IV 250 mls/hr Q8H WAYNE Administration Levofloxacin 750 mg 05/11/19 10:00 05/14/19 09:02 Levaquin PO 750 mg DAILY WAYNE Administration Magnesium Hydroxide 30 ml 05/06/19 02:47 Milk Of Magnesia PO Q4H PRN Constipation Morphine Sulfate 30 mg 05/06/19 06:00 05/15/19 06:01 Ms Contin Er PO 30 mg Q8HR WAYNE Administration Multivitamins 1 each 05/06/19 10:00 05/14/19 09:02 Theragran Tab PO 1 each QDAY WAYNE Administration Mupirocin 1 applic 05/08/19 22:00 05/14/19 21:53 Bactroban 2% NS 1 applic BID WAYNE Administration Ondansetron HCl 4 mg 05/06/19 02:47 05/11/19 00:58 Zofran IV 4 mg Q4H PRN Administration Nausea And Vomiting Senna 17.2 mg 05/06/19 22:00 05/14/19 21:53 Senokot PO 17.2 mg QHS WAYNE Administration
[2019-05-15] MEDS: COREG PO SCH (10:04)
[2019-05-15] MEDS: LEVAQUIN PO SCH (10:05)
[2019-05-15] MEDS: BACTROBAN 2% NS SCH (10:05)
[2019-05-15] MEDS: FOLVITE PO SCH (10:05)
[2019-05-15] MEDS: THERAGRAN Tab PO SCH (10:05)
[2019-05-15] MEDS: HYDREA PO SCH (10:05)
--- NOTE | 2019-05-15 10:48 | Discharge Summary ---
Providers - Providers Date of Admission: 05/06/19 10:54 Date of discharge: 05/15/19 Attending physician: CRISTOBAL LAURENT 05/06/19 15:19 Consult to Physician [CONS] Routine Comment: Consulting Provider: DANIEL DE JESUS Physician Instructions: Reason For Exam: Sickle cell crisis 05/10/19 10:05 Consult to Physician [CONS] Routine Comment: Consulting Provider: ANDREY FORRESTER Physician Instructions: Reason For Exam: sepsis/multifocal pneumonia/s/p 5 days Abx Primary care physician: DANIEL DE JESUS Hospitalization Reason for admission: sickle cell crisis, sepsis, anemia, etc. pneumonia, Condition: Stable Pertinent studies: Chest x-ray was unremarkable Procedures: None Hospital course: 33-year-old man , she of , with a history of sickle cell comes emergency room with complains of pain in his hips, knees, lower back. He was seen at [facility] on Wednesday. Same and treated for sickle cell crisis and discharged home. Hemoglobin at that time was 6.2 but he was not transfused. He state that is symptoms return, pain is throbbing, constant, intensity8/10, and high exacerbating factor. He denies any nausea vomiting, fever or chills. Had blood transfusion. Iron workup showed increased ferritin level. Hematology consult was obtained. The patient was placed on Dexferramin. I had multiple blood transfusion. Hemoglobin improved to 7. Pain control with narcotics. Symptoms improved. Discharged today to follow primary care physician and 3 days and hematologists in 5 days Disposition: - TO HOME OR SELFCARE Time spent for discharge: 35 mins - Discharge Diagnoses (1) Sickle cell pain crisis Status: Acute (2) Iron overload due to repeated red blood cell transfusions Status: Chronic (3) Acute chest syndrome Status: Acute (4) Acute hemolytic anemia Status: Acute (5) Acute intractable headache Status: Acute (6) Arthralgia Status: Acute Qualifiers: Core Measure Documentation - Palliative Care Palliative Care/ Comfort Measures: Not Applicable - Core Measures Any of the following diagnoses?: none Exam - Physical Exam Narrative exam: Constitutional: Well-nourished well-developed. In no distress Head: Normocephalic atraumatic Eyes: Pupils are equal round and reactive to light Nose: No enlarged turbinates, no septal deviation. Mouth: Moist mucous membranes. Neck: Supple no thyromegaly. No bruit. No JVD Heart: Regular rate and rhythm, S1-S2 normal. No rubs murmurs or gallop Lungs: Clear to auscultation bilaterally. no rales or rhonchi Abdomen: Soft, nontender. Bowel sound are present. Extremities: No edema, no cyanosis, no clubbing. Neuro: Alert oriented Oriented x3. No focal sensory or motor deficit. Skin: No rashes or hyperpigmented spots Musculoskeletal system: No joint pain or swelling Hematological: No petechia or subcutanous hemorrhages. Immunological: No multiple septic spots on the skin Lymphatic: No generalized lymphadenopathy Psychiatry: Euthymic. Calm. - Constitutional Vitals: Temp Pulse Resp BP Pulse Ox 99.4 F 83 16 115/72 99 05/15/19 04:06 05/15/19 04:06 05/15/19 07:01 05/15/19 04:06 05/15/19 04:06 Plan Weight Bearing Status: Weight Bear as Tolerated Diet: regular Follow up with: DANIEL DE JESUS DO [Primary Care Provider] - 7 Days Prescriptions: Carvedilol [Coreg] 25 mg PO BID #60 tablet Folic Acid [Folvite] 1 mg PO QDAY #30 tablet Hydrea 1,000 mg PO DAILY #30 levoFLOXacin [Levaquin TAB] 750 mg PO DAILY #3 tablet Sennosides Tab [Senokot] 17.2 mg PO QHS #30 tablet
[2019-05-15] MEDS ORDERED: FLUSH HEPARIN IV ONE (11:29)
[2019-05-15 12:22] VITALS: BP 122/79
== END 2019-05-15 17:30 | disposition home or self-care (01) | DRG 871 ==
LOC: ED 17:54 → 3A 05-06 02:47 → OBSVTOIN 05-06 10:54
PROVIDERS: ADMIT Internal Medicine; ATTEND Family Medicine
PROC: 30233N1 Transfusion of Nonautologous Red Blood Cells into Peripheral Vein, Percutaneous Approach (ICD-10-PCS; principal; 2019-05-06)
DX: A41.9 Sepsis, unspecified organism (principal); D57.01 Hb-SS disease with acute chest syndrome; J18.9 Pneumonia, unspecified organism; D59.9 Acquired hemolytic anemia, unspecified; E86.0 Dehydration; E83.111 Hemochromatosis due to repeated red blood cell transfusions; Z90.49 Acquired absence of other specified parts of digestive tract; Z82.49 Family history of ischemic heart disease and other diseases of the circulatory system; Z83.3 Family history of diabetes mellitus; Z88.1 Allergy status to other antibiotic agents; Z88.8 Allergy status to other drugs, medicaments and biological substances; Z90.81 Acquired absence of spleen; Z88.0 Allergy status to penicillin
CPT/HCPCS: 36415; 36430; 71045; 71046; 80048; 80053; 80076; 80202; 81001; 82728; 83550; 83615; 85007; 85014; 85018; 85025; 85027; 85045; 85660; 86850; 86900; 86901; 86920; 87040; 87086; 87116; 94760; 96361; 96374; 96375; G0378; J0895; J1170; J1200; J1642; J1885; J1956; J2270; J2405; J3370; J7030; J7040; J7050; P9016

== ENCOUNTER 2019-07-14 15:24 | Inpatient (IN) | payer MEDICAID ==
[2019-07-14 16:54] LABS: Mean Corpuscular HGB Conc 35 % (32-34); Mean Corpuscular Volume 100 fl (84-94); Platelet Count 212 K/mm3 (140-440); Red Blood Count 1.61 M/mm3 (3.65-5.03)
[2019-07-14 17:06] LABS: Red Cell Distribution Width 31.4 % (13.2-15.2)
[2019-07-14 17:09] LABS: Hemoglobin 5.6 gm/dl (11.8-15.2)
[2019-07-14 17:12] LABS: Alanine Aminotransferase 57 units/L (7-56); Albumin 4.2 g/dL (3.9-5); BUN/Creatinine Ratio 47; Blood Urea Nitrogen 14 mg/dL (9-20); Calcium 9.2 mg/dL (8.4-10.2); Hemolysis Index 19
[2019-07-14 17:50] LABS: Total Cells Counted 100
[2019-07-14 17:51] LABS: Macrocytosis 2+; Sickle Cells 2+; Target Cells 2+
[2019-07-14 17:52] LABS: Large Platelets 1+; Platelet Estimate Consistent w Auto
[2019-07-14] MEDS: HYDROmorphone 1 MG/1 ML INJ IV PRN ×2 (18:22→21:28)
[2019-07-14] MEDS: diphenhydrAMINE 50 MG/ML VIAL IV PRN ×2 (18:23→21:26)
[2019-07-14] MEDS: D5W/0.2% NACL 1,000 ML IV SCH (18:23)
[2019-07-14] MEDS ORDERED: SODIUM CHLORIDE 0.9% 500 ML 500 ML IV SCH (19:45)
--- NOTE | 2019-07-14 21:07 | History and Physical Report ---
History of Present Illness Date of examination: 07/14/19 Date of admission: 07/14/19 16:01 Chief complaint: SCD/pain crisis, sxs with anemia. History of present illness: Patient presented to the office, with CC of diffuse joint pain, unable to control with his home meds.He was admitted into the Hospital, for sxs management, and control.He will get blood transfusion, pain control, hydration. once stable, will D/c home. Past History Past Medical History: anemia Social history: lives with family Family history: no significant family history Medications and Allergies Allergies Allergy/AdvReac Type Severity Reaction Status Date / Time ceftriaxone sodium Allergy Unknown Verified 03/09/18 07:35 [From Rocephin] meperidine HCl [From Demerol] Allergy Unknown Verified 03/09/18 07:35 Home Medications Medication Instructions Recorded Confirmed Last Taken Type Morphine ER [Ms Contin ER] 60 mg PO Q12H 03/09/18 05/06/19 05/09/18 History Oxycodone HCl [oxyCODONE] 10 mg PO Q8H 03/09/18 05/06/19 05/09/18 History Folic Acid [Folvite] 1 mg PO QDAY tablet 05/15/19 Unknown Rx Folic Acid [Folvite] 1 mg PO QDAY #30 tablet 05/15/19 Unknown Rx Hydrea 1,000 mg PO DAILY #30 05/15/19 Unknown Rx Hydroxyurea 1,000 mg PO QDAY capsule 05/15/19 Unknown Rx Sennosides Tab [Senokot] 17.2 mg PO QHS #30 tablet 05/15/19 Unknown Rx carvediloL [Coreg] 25 mg PO BID #60 tablet 05/15/19 Unknown Rx diphenhydrAMINE [Benadryl] 25 mg IV Q6H PRN vial 05/15/19 Unknown Rx levoFLOXacin [Levaquin TAB] 750 mg PO DAILY #3 tablet 05/15/19 Unknown Rx Active Meds: Active Medications Diphenhydramine HCl (Benadryl) 12.5 mg IV Q3H PRN PRN Reason: Itching Last Admin: 07/14/19 18:23 Dose: 12.5 mg Documented by: Folic Acid (Folvite) 1 mg PO QDAY WAYNE Heparin Sodium (Porcine) (Heparin) 5,000 unit SUB-Q Q12HR WAYNE Hydromorphone HCl (Dilaudid) 3 mg IV Q3H PRN PRN Reason: Pain , Severe (7-10) Last Admin: 07/14/19 18:22 Dose: 3 mg Documented by: Dextrose/Sodium Chloride (D5ns 0.2%) 1,000 mls @ 175 mls/hr IV DIRECT WAYNE Last Admin: 07/14/19 18:23 Dose: 175 mls/hr Documented by: Sodium Chloride (Nacl 0.9% 500 Ml) 500 mls @ 0 mls/hr IV ONCE WAYNE Stop: 07/15/19 19:44 Morphine Sulfate (Ms Contin Er) 60 mg PO Q12HR WAYNE Sodium Chloride (Sodium Chloride Flush Syringe 10 Ml) 10 ml IV BID WAYNE Sodium Chloride (Sodium Chloride Flush Syringe 10 Ml) 10 ml IV PRN PRN PRN Reason: LINE FLUSH Review of Systems Constitutional: chronic pain Musculoskeletal: low back pain Exam - Constitutional Vitals: Temp Pulse Resp BP Pulse Ox 98.5 F 77 20 114/62 95 07/14/19 17:17 07/14/19 17:17 07/14/19 18:22 07/14/19 17:17 07/14/19 18:15 General appearance: Present: mild distress, well-nourished - EENT Eyes: Present: PERRL ENT: hearing intact, clear oral mucosa - Neck Neck: Present: supple, normal ROM - Respiratory Respiratory: bilateral: diminished - Cardiovascular Heart Sounds: Present: S1 & S2. Absent: rub, click - Extremities Extremities: pulses symmetrical, No edema Peripheral Pulses: within normal limits - Abdominal General gastrointestinal: Present: soft, non-tender, non-distended, normal bowel sounds Male genitourinary: Present: deferred - Rectal Rectal Exam: deferred - Integumentary Integumentary: Present: clear, warm, dry - Musculoskeletal Musculoskeletal: gait normal, strength equal bilaterally - Psychiatric Psychiatric: appropriate mood/affect, intact judgment & insight - Neurologic Neurologic: CNII-XII intact, moves all extremities Results - Labs CBC & Chem 7: 07/14/19 16:31 07/14/19 16:31 Labs: Abnormal lab results 07/14/19 07/14/19 07/14/19 Range/Units 16:31 16:31 16:31 WBC 20.5 H (4.5-11.0) K/mm3 RBC 1.61 L (3.65-5.03) M/mm3 Hgb 5.6 L* (11.8-15.2) gm/dl Hct 16.0 L* (35.5-45.6) % MCV 100 H (84-94) fl MCH 35 H (28-32) pg MCHC 35 H (32-34) % RDW 31.4 H (13.2-15.2) % Monocytes % (Manual) 12.0 H (0.0-7.3) % Eosinophils % (Manual) 9.0 H (0.0-4.3) % Basophils % (Manual) 2.0 H (0.0-1.8) % Nucleated RBC % 17.0 H (0.0-0.9) % Seg Neutrophils # Man 9.6 H (1.8-7.7) K/mm3 Lymphocytes # (Manual) 5.9 H (1.2-5.4) K/mm3 Monocytes # (Manual) 2.5 H (0.0-0.8) K/mm3 Eosinophils # (Manual) 1.8 H (0.0-0.4) K/mm3 Basophils # (Manual) 0.4 H (0.0-0.1) K/mm3 Carbon Dioxide 21 L (22-30) mmol/L Creatinine 0.3 L (0.8-1.5) mg/dL Ferritin 6654.0 H (13.0-400.0) ng/mL Total Bilirubin 5.20 H (0.1-1.2) mg/dL AST 108 H (5-40) units/L ALT 57 H (7-56) units/L Alkaline Phosphatase 214 H (35-129) units/L Lactate Dehydrogenase (91-180) units/L Crossmatch 07/14/19 07/14/19 Range/Units 16:31 19:53 WBC (4.5-11.0) K/mm3 RBC (3.65-5.03) M/mm3 Hgb (11.8-15.2) gm/dl Hct (35.5-45.6) % MCV (84-94) fl MCH (28-32) pg MCHC (32-34) % RDW (13.2-15.2) % Monocytes % (Manual) (0.0-7.3) % Eosinophils % (Manual) (0.0-4.3) % Basophils % (Manual) (0.0-1.8) % Nucleated RBC % (0.0-0.9) % Seg Neutrophils # Man (1.8-7.7) K/mm3 Lymphocytes # (Manual) (1.2-5.4) K/mm3 Monocytes # (Manual) (0.0-0.8) K/mm3 Eosinophils # (Manual) (0.0-0.4) K/mm3 Basophils # (Manual) (0.0-0.1) K/mm3 Carbon Dioxide (22-30) mmol/L Creatinine (0.8-1.5) mg/dL Ferritin (13.0-400.0) ng/mL Total Bilirubin (0.1-1.2) mg/dL AST (5-40) units/L ALT (7-56) units/L Alkaline Phosphatase (35-129) units/L Lactate Dehydrogenase 816 H (91-180) units/L Crossmatch See Detail Assessment and Plan - Patient Problems (1) Acute hemolytic anemia Current Visit: No Status: Acute Plan to address problem: judicious blood transfusion (2) Dehydration Current Visit: No Status: Acute Plan to address problem: hydration. (3) Iron overload due to repeated red blood cell transfusions Current Visit: Yes Status: Acute Plan to address problem: iron chelating. (4) Hypoxia Current Visit: Yes Status: Acute Plan to address problem: oxygen
[2019-07-14] MEDS: HEPARIN 5,000 UNIT/1 ML VIAL SUB-Q SCH (21:26)
[2019-07-14] MEDS: MORPHINE 30 MG ER TAB PO SCH (21:27)
[2019-07-15] MEDS: HYDROmorphone 1 MG/1 ML INJ IV PRN ×8 (00:25→23:15)
[2019-07-15] MEDS: diphenhydrAMINE 50 MG/ML VIAL IV PRN ×8 (00:25→23:14)
[2019-07-15] MEDS: D5W/0.2% NACL 1,000 ML IV SCH ×2 (03:53→17:05)
[2019-07-15] MEDS: MORPHINE 30 MG ER TAB PO SCH (09:30)
[2019-07-15] MEDS: HEPARIN 5,000 UNIT/1 ML VIAL SUB-Q SCH ×2 (09:50→23:22)
[2019-07-15] MEDS: FOLIC ACID 1 MG TAB PO SCH (09:50)
[2019-07-15 10:28] LABS: Hematocrit 20.6 % (35.5-45.6); Hemoglobin 7.3 gm/dl (11.8-15.2); Mean Corpuscular HGB Conc 35 % (32-34); Mean Corpuscular Volume 96 fl (84-94); Platelet Count 184 K/mm3 (140-440); Red Blood Count 2.15 M/mm3 (3.65-5.03); Red Cell Distribution Width 19.8 % (13.2-15.2)
[2019-07-15 12:08] LABS: Basophils % (Manual) 0 % (0.0-1.8); Total Cells Counted 100
[2019-07-15 12:09] LABS: Giant Platelets Few; Sickle Cells 2+; Target Cells 2+
[2019-07-15 12:10] LABS: Platelet Estimate Consistent w Auto
[2019-07-15] MEDS ORDERED: SENNOSIDES 8.6 MG TAB PO PRN (17:48)
--- NOTE | 2019-07-15 18:01 | Progress Note ---
Assessment and Plan - Patient Problems (1) Acute hemolytic anemia Current Visit: No Status: Acute Plan to address problem: judicious blood transfusion (2) Dehydration Current Visit: No Status: Acute Plan to address problem: hydration. (3) Iron overload due to repeated red blood cell transfusions Current Visit: Yes Status: Acute Plan to address problem: iron chelating. (4) Hypoxia Current Visit: Yes Status: Acute Plan to address problem: oxygen Subjective Date of service: 07/15/19 Principal diagnosis: SCD/pain crisis, anemia symptomatic. Interval history: Patient seen/examined, resting in bed ok, Temp 100.5. WBc 19,000+, cultures drawn, IV ABX started , until cultures resulted.Patient has chroni iron overload, and will give iron chelating agent. Objective - Constitutional Vitals: Vital Signs - 12hr 07/15/19 07/15/19 07/15/19 06:25 06:55 07:08 Temperature 98.5 F 98.4 F 98.5 F Pulse Rate 74 80 80 Respiratory 20 20 18 Rate Blood Pressure 120/65 118/64 122/66 O2 Sat by Pulse 99 98 99 Oximetry 07/15/19 07/15/19 07/15/19 07:21 10:00 17:02 Temperature 100.0 F H Pulse Rate 81 Respiratory 18 18 Rate Blood Pressure 103/57 O2 Sat by Pulse 98 94 Oximetry General appearance: Present: mild distress, well-nourished - EENT Eyes: PERRL, EOM intact ENT: hearing intact, clear oral mucosa Ears: bilateral: normal - Neck Neck: supple, normal ROM - Respiratory Respiratory effort: normal Respiratory: bilateral: CTA - Breasts Breasts: deferred - Cardiovascular Rhythm: regular Heart Sounds: Present: S1 & S2. Absent: gallop, rub Extremities: pulses intact, No edema, normal color, Full ROM - Gastrointestinal General gastrointestinal: Present: soft, non-tender, non-distended, normal bowel sounds Rectal Exam: deferred - Genitourinary Male genitourinary: deferred - Integumentary Integumentary: clear, warm, dry - Musculoskeletal Musculoskeletal: 1, strength equal bilaterally - Neurologic Neurologic: moves all extremities - Psychiatric Psychiatric: memory intact, appropriate mood/affect, intact judgment & insight - Labs CBC & Chem 7: 07/15/19 10:00 07/14/19 16:31 Labs: Abnormal lab results 07/14/19 07/14/19 07/15/19 Range/Units 16:31 19:53 10:00 WBC 19.7 H (4.5-11.0) K/mm3 RBC 2.15 L (3.65-5.03) M/mm3 Hgb 7.3 L (11.8-15.2) gm/dl Hct 20.6 L (35.5-45.6) % MCV 96 H (84-94) fl MCH 34 H (28-32) pg MCHC 35 H (32-34) % RDW 19.8 H (13.2-15.2) % Eosinophils % (Manual) 9.0 H (0.0-4.3) % Nucleated RBC % 9.0 H (0.0-0.9) % Seg Neutrophils # Man 13.8 H (1.8-7.7) K/mm3 Monocytes # (Manual) 1.4 H (0.0-0.8) K/mm3 Eosinophils # (Manual) 1.8 H (0.0-0.4) K/mm3 Percent Retic 18.77 H (0.78-2.58) % Ferritin 6654.0 H (13.0-400.0) ng/mL Crossmatch See Detail
[2019-07-15] MEDS: ACETAMINOPHEN 325 MG TAB PO PRN (18:28)
[2019-07-15] MEDS: carvediloL 25 MG TAB PO SCH (23:05)
[2019-07-15] MEDS: SODIUM CHLORIDE 0.9% IV SCH (23:07)
[2019-07-15] MEDS: DEFEROXAMINE MESYLATE IV SCH (23:07)
[2019-07-16] MEDS: MORPHINE 30 MG ER TAB PO SCH ×3 (00:23→23:21)
[2019-07-16] MEDS: HYDROmorphone 1 MG/1 ML INJ IV PRN ×7 (02:33→21:51)
[2019-07-16] MEDS: diphenhydrAMINE 50 MG/ML VIAL IV PRN ×7 (02:34→21:56)
[2019-07-16] MEDS: D5W/0.2% NACL 1,000 ML IV SCH ×3 (06:45→18:58)
[2019-07-16] MEDS: HEPARIN 5,000 UNIT/1 ML VIAL SUB-Q SCH ×2 (09:52→21:51)
[2019-07-16] MEDS: FOLIC ACID 1 MG TAB PO SCH (09:52)
[2019-07-16] MEDS ORDERED: FOLIC ACID 1 MG TAB PO SCH (10:00)
[2019-07-16] MEDS: carvediloL 25 MG TAB PO SCH ×2 (13:16→21:51)
--- NOTE | 2019-07-16 15:03 | Progress Note ---
Assessment and Plan - Patient Problems (1) Acute hemolytic anemia Current Visit: No Status: Acute Plan to address problem: judicious blood transfusion (2) Dehydration Current Visit: No Status: Acute Plan to address problem: hydration. (3) Iron overload due to repeated red blood cell transfusions Current Visit: Yes Status: Acute Plan to address problem: iron chelating. (4) Hypoxia Current Visit: Yes Status: Acute Plan to address problem: oxygen Subjective Date of service: 07/16/19 Principal diagnosis: SCD/pain crisis, anemia symptomatic. Interval history: Patient seen/examined, resting in bed ok, Temp 100.5. WBc 19,000+, cultures drawn, IV ABX started , until cultures resulted.Patient has chroni iron overload, and will give iron chelating agent. Patient seen/examined, resting in bed, labs/records reviewed, case d/w patient. c/o pain now at 7/10. just finishing bag#1 of 3 Desf.Patient is coughing, and will get CXY. Objective - Constitutional Vitals: Vital Signs - 12hr 07/16/19 07/16/19 06:11 08:16 Temperature 99.5 F Pulse Rate 82 Respiratory 18 Rate Blood Pressure 114/62 O2 Sat by Pulse 90 95 Oximetry General appearance: Present: mild distress, well-nourished - EENT Eyes: PERRL, EOM intact ENT: hearing intact, clear oral mucosa Ears: bilateral: normal - Neck Neck: supple, normal ROM - Respiratory Respiratory effort: normal Respiratory: bilateral: CTA - Breasts Breasts: deferred - Cardiovascular Rhythm: regular Heart Sounds: Present: S1 & S2. Absent: gallop, rub Extremities: pulses intact, No edema, normal color, Full ROM - Gastrointestinal General gastrointestinal: Present: soft, non-tender, non-distended, normal bowel sounds Rectal Exam: deferred - Genitourinary Male genitourinary: deferred - Integumentary Integumentary: clear, warm, dry - Musculoskeletal Musculoskeletal: 1, strength equal bilaterally - Neurologic Neurologic: moves all extremities - Psychiatric Psychiatric: memory intact, appropriate mood/affect, intact judgment & insight - Labs CBC & Chem 7: 07/15/19 10:00 07/14/19 16:31
--- NOTE | 2019-07-16 16:10 | XRay Report ---
CHEST 1 VIEW INDICATION / CLINICAL INFORMATION: cough. COMPARISON: 05/13/2019 FINDINGS: SUPPORT DEVICES: Port-A-Cath is stable in position. The tip is projecting at the cavoatrial junction. HEART / MEDIASTINUM: Silhouette remains mild to moderately enlarged. Size is stable compared with mos t recent chest radiograph. LUNGS / PLEURA: There is mild pulmonary vascular congestion without overt interstitial pulmonary gracie a. There is no focal consolidation or airspace disease to suggest the presence of pneumonia. No pleur al effusion. No pneumothorax. ADDITIONAL FINDINGS: No significant additional findings. IMPRESSION: 1. Stable cardiomegaly. No evidence for pneumonia or other acute pulmonary process. Signer Name: Kim Cordova MD Signed: 07/16/2019 4:05 PM Workstation Name: [id number]
[2019-07-16] MEDS: ACETAMINOPHEN 325 MG TAB PO PRN (16:16)
[2019-07-16] MEDS: DEFEROXAMINE MESYLATE IV SCH (21:50)
[2019-07-16] MEDS: SODIUM CHLORIDE 0.9% IV SCH (21:50)
[2019-07-17] MEDS: ACETAMINOPHEN 325 MG TAB PO PRN ×3 (00:20→12:43)
[2019-07-17] MEDS: HYDROmorphone 1 MG/1 ML INJ IV PRN ×7 (01:02→21:21)
[2019-07-17] MEDS: diphenhydrAMINE 50 MG/ML VIAL IV PRN ×7 (01:02→21:24)
[2019-07-17] MEDS: D5W/0.2% NACL 1,000 ML IV SCH ×3 (08:14→22:49)
[2019-07-17] MEDS: MORPHINE 30 MG ER TAB PO SCH ×2 (10:14→22:48)
[2019-07-17] MEDS: FOLIC ACID 1 MG TAB PO SCH (10:14)
[2019-07-17] MEDS: HEPARIN 5,000 UNIT/1 ML VIAL SUB-Q SCH ×2 (10:14→21:31)
[2019-07-17] MEDS ORDERED: VANCOMYCIN/NS 1 GM/250 ML 1 GM/250 ML BAG IV SCH (13:00)
[2019-07-17] MEDS ORDERED: VANCOMYCIN 1,250 MG in SODIUM CHLORIDE 0.9% 250ML 250 ML IV ONE ×2 (13:45→15:00)
[2019-07-17] MEDS: carvediloL 25 MG TAB PO SCH ×2 (14:00→22:53)
[2019-07-17] MEDS: SODIUM CHLORIDE 0.9% IV SCH (20:33)
[2019-07-17] MEDS: DEFEROXAMINE MESYLATE IV SCH (20:33)
--- NOTE | 2019-07-17 21:34 | Progress Note ---
Assessment and Plan - Patient Problems (1) Acute hemolytic anemia Current Visit: No Status: Acute Plan to address problem: judicious blood transfusion (2) Dehydration Current Visit: No Status: Acute Plan to address problem: hydration. (3) Iron overload due to repeated red blood cell transfusions Current Visit: Yes Status: Acute Plan to address problem: iron chelating. (4) Hypoxia Current Visit: Yes Status: Acute Plan to address problem: oxygen Subjective Date of service: 07/17/19 Principal diagnosis: SCD/pain crisis, anemia symptomatic. Interval history: Patient seen/examined, resting in bed ok, Temp 100.5. WBc 19,000+, cultures drawn, IV ABX started , until cultures resulted.Patient has chroni iron overload, and will give iron chelating agent. Patient seen/examined, resting in bed, labs/records reviewed, case d/w patient. c/o pain now at 7/10. just finishing bag#1 of 3 Desf.Patient is coughing, and will get CXY. Patient seen/examined, resting in bed ok. 24Tmax 102, defervesed with tylenol. IV ABX , including vancomycin added.So far cultures negative, urine cult pending.Hgb still low, and will give additional 1unit of blood .IV Desf continues day2, of 3. Objective - Constitutional Vitals: Vital Signs - 12hr 07/17/19 07/17/19 07/17/19 10:00 10:17 10:20 Temperature 99.7 F H Pulse Rate Respiratory Rate Blood Pressure 98/54 O2 Sat by Pulse 96 Oximetry 07/17/19 07/17/19 12:09 16:57 Temperature 101.9 F H 98.3 F Pulse Rate 77 72 Respiratory 19 19 Rate Blood Pressure 109/60 98/53 O2 Sat by Pulse 92 95 Oximetry General appearance: Present: mild distress, well-nourished - EENT Eyes: PERRL, EOM intact ENT: hearing intact, clear oral mucosa Ears: bilateral: normal - Neck Neck: supple, normal ROM - Respiratory Respiratory effort: normal Respiratory: bilateral: CTA - Breasts Breasts: deferred - Cardiovascular Rhythm: regular Heart Sounds: Present: S1 & S2. Absent: gallop, rub Extremities: pulses intact, No edema, normal color, Full ROM - Gastrointestinal General gastrointestinal: Present: soft, non-tender, non-distended, normal bowel sounds Rectal Exam: deferred - Genitourinary Male genitourinary: deferred - Integumentary Integumentary: clear, warm, dry - Musculoskeletal Musculoskeletal: 1, strength equal bilaterally - Neurologic Neurologic: moves all extremities - Psychiatric Psychiatric: memory intact, appropriate mood/affect, intact judgment & insight - Labs CBC & Chem 7: 07/15/19 10:00 07/14/19 16:31
[2019-07-17] MEDS ORDERED: SODIUM CHLORIDE 0.9% 500 ML 500 ML IV ONE (21:35)
[2019-07-18] MEDS: HYDROmorphone 1 MG/1 ML INJ IV PRN ×8 (00:53→23:08)
[2019-07-18] MEDS: diphenhydrAMINE 50 MG/ML VIAL IV PRN ×8 (00:53→23:09)
[2019-07-18] MEDS: VANCOMYCIN 1,250 MG in SODIUM CHLORIDE 0.9% 250ML 250 ML IV SCH ×2 (06:59→18:42)
[2019-07-18] MEDS ORDERED: SODIUM CHLORIDE 0.9% 500 ML 500 ML ONE (08:13)
[2019-07-18] MEDS: FOLIC ACID 1 MG TAB PO SCH (09:29)
[2019-07-18] MEDS: carvediloL 25 MG TAB PO SCH ×2 (09:29→22:47)
[2019-07-18] MEDS: MORPHINE 30 MG ER TAB PO SCH ×2 (09:30→22:34)
[2019-07-18] MEDS: HEPARIN 5,000 UNIT/1 ML VIAL SUB-Q SCH ×2 (09:31→22:26)
[2019-07-18] MEDS: D5W/0.2% NACL 1,000 ML IV SCH (16:52)
--- NOTE | 2019-07-18 20:06 | Progress Note ---
Assessment and Plan - Patient Problems (1) Acute hemolytic anemia Current Visit: No Status: Acute Plan to address problem: judicious blood transfusion (2) Dehydration Current Visit: No Status: Acute Plan to address problem: hydration. (3) Iron overload due to repeated red blood cell transfusions Current Visit: Yes Status: Acute Plan to address problem: iron chelating. (4) Hypoxia Current Visit: Yes Status: Acute Plan to address problem: oxygen (5) SIRS due to infectious process without acute organ dysfunction Current Visit: Yes Status: Acute Plan to address problem: Unable to determine clinically, if present on admission. Will tx with anti fungal, and consult ID. Subjective Date of service: 07/18/19 Principal diagnosis: SCD/pain crisis, anemia symptomatic. Interval history: Patient seen/examined, resting in bed ok, Temp 100.5. WBc 19,000+, cultures drawn, IV ABX started , until cultures resulted.Patient has chroni iron overload, and will give iron chelating agent. Patient seen/examined, resting in bed, labs/records reviewed, case d/w patient. c/o pain now at 7/10. just finishing bag#1 of 3 Desf.Patient is coughing, and will get CXY. Patient seen/examined, resting in bed ok. 24Tmax 102, defervesed with tylenol. IV ABX , including vancomycin added.So far cultures negative, urine cult pending.Hgb still low, and will give additional 1unit of blood .IV Desf c ontinues day2, of 3. Patient seen/examined, resting in bed, culture positive for jose from the po rt. will treat with antifungal, and consult ID., hopefully, be able to save the port. Objective - Constitutional Vitals: Vital Signs - 12hr 07/18/19 07/18/19 08:29 09:29 Pulse Rate 72 71 Blood Pressure 102/45 117/70 O2 Sat by Pulse 93 Oximetry General appearance: Present: mild distress, well-nourished - EENT Eyes: PERRL, EOM intact ENT: hearing intact, clear oral mucosa Ears: bilateral: normal - Neck Neck: supple, normal ROM - Respiratory Respiratory effort: normal Respiratory: bilateral: CTA - Breasts Breasts: deferred - Cardiovascular Rhythm: regular Heart Sounds: Present: S1 & S2. Absent: gallop, rub Extremities: pulses intact, No edema, normal color, Full ROM - Gastrointestinal General gastrointestinal: Present: soft, non-tender, non-distended, normal bowel sounds Rectal Exam: deferred - Genitourinary Male genitourinary: deferred, normal - Integumentary Integumentary: clear, warm, dry - Musculoskeletal Musculoskeletal: 1, strength equal bilaterally - Neurologic Neurologic: moves all extremities - Psychiatric Psychiatric: memory intact, appropriate mood/affect, intact judgment & insight - Labs CBC & Chem 7: 07/15/19 10:00 07/14/19 16:31 Labs: Abnormal lab results 07/17/19 Range/Units 23:10 Crossmatch See Detail
[2019-07-18] MEDS: FLUCONAZOLE 200 MG 200 MG/100 ML BAG IV SCH (22:40)
[2019-07-19] MEDS: D5W/0.2% NACL 1,000 ML IV SCH ×4 (00:41→22:06)
[2019-07-19] MEDS: HYDROmorphone 1 MG/1 ML INJ IV PRN ×7 (02:06→21:54)
[2019-07-19] MEDS: diphenhydrAMINE 50 MG/ML VIAL IV PRN ×5 (05:07→21:54)
[2019-07-19] MEDS: VANCOMYCIN 1,250 MG in SODIUM CHLORIDE 0.9% 250ML 250 ML IV SCH ×2 (06:51→18:45)
[2019-07-19] MEDS: FOLIC ACID 1 MG TAB PO SCH (12:07)
[2019-07-19] MEDS: HEPARIN 5,000 UNIT/1 ML VIAL SUB-Q SCH ×2 (12:08→21:55)
[2019-07-19] MEDS: carvediloL 25 MG TAB PO SCH ×2 (12:09→21:55)
[2019-07-19] MEDS: MORPHINE 30 MG ER TAB PO SCH ×2 (12:20→22:00)
--- NOTE | 2019-07-19 20:03 | Progress Note ---
Assessment and Plan - Patient Problems (1) Acute hemolytic anemia Current Visit: No Status: Acute Plan to address problem: judicious blood transfusion (2) Dehydration Current Visit: No Status: Acute Plan to address problem: hydration. (3) Iron overload due to repeated red blood cell transfusions Current Visit: Yes Status: Acute Plan to address problem: iron chelating. (4) Hypoxia Current Visit: Yes Status: Acute Plan to address problem: oxygen (5) SIRS due to infectious process without acute organ dysfunction Current Visit: Yes Status: Acute Plan to address problem: Unable to determine clinically, if present on admission. Will tx with anti fungal, and consult ID. Subjective Date of service: 07/19/19 Principal diagnosis: SCD/pain crisis, anemia symptomatic. Interval history: Patient seen/examined, resting in bed ok, Temp 100.5. WBc 19,000+, cultures drawn, IV ABX started , until cultures resulted.Patient has chroni iron overload, and will give iron chelating agent. Patient seen/examined, resting in bed, labs/records reviewed, case d/w patient. c/o pain now at 7/10. just finishing bag#1 of 3 Desf.Patient is coughing, and will get CXY. Patient seen/examined, resting in bed ok. 24Tmax 102, defervesed with tylenol. IV ABX , including vancomycin added.So far cultures negative, urine cult pending.Hgb still low, and will give additional 1unit of blood .IV Desf c ontinues day2, of 3. Patient seen/examined, resting in bed, culture positive for jose from the po rt. will treat with antifungal, and consult ID., hopefully, be able to save the port. Patient seen/examinwd, resting in bed, records reviewed, case d/w patient. ID consulted. patient continues on DESF, and Fluconazole, and continue pain control. Objective - Constitutional Vitals: Vital Signs - 12hr 07/19/19 07/19/19 07/19/19 08:40 11:27 12:09 Temperature 98.4 F Pulse Rate 69 69 Respiratory 16 Rate Blood Pressure 119/72 119/72 O2 Sat by Pulse 93 97 Oximetry General appearance: Present: mild distress, well-nourished - EENT Eyes: PERRL, EOM intact ENT: hearing intact, clear oral mucosa Ears: bilateral: normal - Neck Neck: supple, normal ROM - Respiratory Respiratory effort: normal Respiratory: bilateral: CTA - Breasts Breasts: deferred - Cardiovascular Rhythm: regular Heart Sounds: Present: S1 & S2. Absent: gallop, rub Extremities: pulses intact, No edema, normal color, Full ROM - Gastrointestinal General gastrointestinal: Present: soft, non-tender, non-distended, normal bowel sounds Rectal Exam: deferred - Genitourinary Male genitourinary: deferred - Integumentary Integumentary: clear, warm, dry - Musculoskeletal Musculoskeletal: 1, strength equal bilaterally - Neurologic Neurologic: moves all extremities - Psychiatric Psychiatric: memory intact, appropriate mood/affect, intact judgment & insight - Labs CBC & Chem 7: 07/15/19 10:00 07/14/19 16:31
[2019-07-19] MEDS: FLUCONAZOLE 200 MG 200 MG/100 ML BAG IV SCH (21:55)
[2019-07-20] MEDS: diphenhydrAMINE 50 MG/ML VIAL IV PRN ×7 (01:20→21:42)
[2019-07-20] MEDS: HYDROmorphone 1 MG/1 ML INJ IV PRN ×7 (01:20→21:43)
[2019-07-20] MEDS: VANCOMYCIN 1,250 MG in SODIUM CHLORIDE 0.9% 250ML 250 ML IV SCH ×2 (04:55→06:50)
[2019-07-20] MEDS: D5W/0.2% NACL 1,000 ML IV SCH ×2 (04:55→11:47)
[2019-07-20 05:54] LABS: Basophils # (Auto) 0.1 K/mm3 (0.0-0.1); Basophils % (Auto) 0.7 % (0.0-1.8); Eosinophils # (Auto) 0.9 K/mm3 (0.0-0.4); Eosinophils % (Auto) 4.5 % (0.0-4.3); Hemoglobin 6.6 gm/dl (11.8-15.2); Lymphocytes # (Auto) 1.9 K/mm3 (1.2-5.4); Lymphocytes % (Auto) 10.2 % (13.4-35.0); Mean Corpuscular HGB Conc 36 % (32-34); Mean Corpuscular Volume 88 fl (84-94); Monocytes # (Auto) 2.3 K/mm3 (0.0-0.8); Monocytes % (Auto) 12.4 % (0.0-7.3); Platelet Count 275 K/mm3 (140-440); Red Blood Count 2.12 M/mm3 (3.65-5.03); Red Cell Distribution Width 18.7 % (13.2-15.2)
[2019-07-20 05:59] LABS: Hematocrit 18.6 % (35.5-45.6)
[2019-07-20] MEDS ORDERED: SODIUM CHLORIDE 0.9% 500 ML 500 ML IV ONE (06:09)
[2019-07-20 06:24] LABS: BUN/Creatinine Ratio 30; Blood Urea Nitrogen 9 mg/dL (9-20); Calcium 8.8 mg/dL (8.4-10.2); Hemolysis Index 3
[2019-07-20] MEDS: MORPHINE 30 MG ER TAB PO SCH ×2 (10:25→23:08)
[2019-07-20] MEDS: carvediloL 25 MG TAB PO SCH ×2 (10:26→23:07)
[2019-07-20] MEDS: FOLIC ACID 1 MG TAB PO SCH (10:26)
[2019-07-20] MEDS: HEPARIN 5,000 UNIT/1 ML VIAL SUB-Q SCH ×2 (10:26→21:52)
--- NOTE | 2019-07-20 10:56 | Consultation ---
History of Present Illness - Reason for Consult Consult date: 07/20/19 - History of Present Illness 34 yo M PMhx Sickle cell disease, splenectomy, right sided thoracic wall port admitted to the hospital for intractible pain associated with his SCD. He had initially presented to his primary's office before being directed to the hospital. While inpatient he developed fevers and leukocytosis. Blood cultures were obtained, and the ones from the port are now growing Purvi albicans. Now afebrile, however was febrile on 07/17. White count 19. Cultures with C albicans. Currently receiving fluconazole and vancomycin. Imaging personally reviewed: CXR: No acute process Review of systems: Bold if positive; otherwise negative GENERAL: fever, chills, weight loss, fatigue, night sweats, pain EYES: blurry vision, eye pain HENT: headache, hearing loss, sore throat, dysphagia, sinus pain CARDIO: chest pain, palpitations, orthopnea PULM: shortness of breath, wheezing, cough, sputum, hemoptysis GI: nausea, vomiting, diarrhea, abdominal pain, blood in stool : urinary frequency, urgency, dysuria, urethral discharge MSK: joint pain, back pain, swelling SKIN: rash, redness HEME: easy bruising, bleeding Past History Past Medical History: anemia Past Surgical History: Other (Port-a-cath placement) Social history: lives with family Family history: no significant family history Medications and Allergies Allergies Allergy/AdvReac Type Severity Reaction Status Date / Time ceftriaxone sodium Allergy Unknown Verified 03/09/18 07:35 [From Rocephin] meperidine HCl [From Demerol] Allergy Unknown Verified 03/09/18 07:35 Home Medications Medication Instructions Recorded Confirmed Last Taken Type Morphine ER [Ms Contin ER] 60 mg PO Q12H 03/09/18 07/15/19 05/09/18 History Oxycodone HCl [oxyCODONE] 10 mg PO Q8H 03/09/18 07/15/19 05/09/18 History Folic Acid [Folvite] 1 mg PO QDAY #30 tablet 05/15/19 07/15/19 Unknown Rx Hydroxyurea 1,000 mg PO QDAY capsule 05/15/19 07/15/19 Unknown Rx carvediloL [Coreg] 25 mg PO BID #60 tablet 05/15/19 07/15/19 Unknown Rx diphenhydrAMINE [Benadryl] 25 mg IV Q6H PRN vial 05/15/19 07/15/19 Unknown Rx Sennosides Tab [Senokot] 17.2 mg PO PRN PRN 07/15/19 07/15/19 Unknown History Active Meds: Active Medications Acetaminophen (Tylenol) 650 mg PO Q6H PRN PRN Reason: Non Cardiac Pain or Temp>100.5 Last Admin: 07/17/19 12:43 Dose: 650 mg Documented by: Carvedilol (Coreg) 25 mg PO BID [facility] Last Admin: 07/20/19 10:26 Dose: 25 mg Documented by: Diphenhydramine HCl (Benadryl) 12.5 mg IV Q3H PRN PRN Reason: Itching Last Admin: 07/20/19 08:18 Dose: 12.5 mg Documented by: Folic Acid (Folvite) 1 mg PO QDAY [facility] Last Admin: 07/20/19 10:26 Dose: 1 mg Documented by: Heparin Sodium (Porcine) (Heparin) 5,000 unit SUB-Q Q12HR [facility] Last Admin: 07/20/19 10:26 Dose: 5,000 unit Documented by: Hydromorphone HCl (Dilaudid) 3 mg IV Q3H PRN PRN Reason: Pain , Severe (7-10) Last Admin: 07/20/19 08:18 Dose: 3 mg Documented by: Dextrose/Sodium Chloride (D5ns 0.2%) 1,000 mls @ 175 mls/hr IV DIRECT [facility] Last Admin: 07/20/19 04:55 Dose: 175 mls/hr Documented by: Vancomycin HCl 1,250 mg/ (Sodium Chloride) 275 mls @ 166.667 mls/hr IV Q12H [facility] Last Admin: 07/20/19 06:50 Dose: Not Given Documented by: Fluconazole (Diflucan) 200 mg in 100 mls @ 100 mls/hr IV Q24H [facility]; Protocol Last Admin: 07/19/19 21:55 Dose: 100 mls/hr Documented by: Morphine Sulfate (Ms Contin Er) 60 mg PO Q12HR [facility] Last Admin: 07/20/19 10:25 Dose: 60 mg Documented by: Senna (Senokot) 17.2 mg PO Q12H PRN PRN Reason: Constipation Sodium Chloride (Sodium Chloride Flush Syringe 10 Ml) 10 ml IV BID [facility] Last Admin: 07/20/19 10:29 Dose: 10 ml Documented by: Sodium Chloride (Sodium Chloride Flush Syringe 10 Ml) 10 ml IV PRN PRN PRN Reason: LINE FLUSH Last Admin: 07/20/19 04:47 Dose: 10 ml Documented by: Physical Examination - Physical Exam Narrative exam: General Normal appearance, well developed, no acute distress Eyes - PERRLA, EOM intact ENT - Moist mucous membranes, no lymphadenopathy Neck - No noticeable or palpable swelling, redness or rash around throat or on face Lymph Nodes - No lymphadenopathy Cardiovascular - RRR no m/r/g, no JVD, no carotid bruits. R port Lungs - Clear to auscultation, no use of accessory muscles, no crackles or wheezes. Skin - No rashes, skin warm and dry, no erythematous areas Abdomen - Normal bowel sounds, abdomen soft and nontender Extremities - No edema, cyanosis or clubbing Musculoskeletal - 5/5 strength, normal range of motion, no swollen or erythematous joints. Neurological Alert and oriented x 3, CN 2-12 grossly intact. - Constitutional Vitals: Vital Signs Temp Pulse Resp BP Pulse Ox 99.9 F H 78 18 102/52 94 07/20/19 05:24 07/20/19 10:26 07/20/19 05:24 07/20/19 10:26 07/20/19 05:24 Temperature -Last 24 Hours Temperature 99.9 F Temperature 98.4 F Temperature 98.4 F Temperature 98.4 F Results - Labs CBC & Chem 7: 07/20/19 05:10 07/20/19 05:10 Labs: Abnormal lab results 07/17/19 07/20/19 07/20/19 Range/Units 23:10 05:10 05:10 WBC 19.0 H (4.5-11.0) K/mm3 RBC 2.12 L (3.65-5.03) M/mm3 Hgb 6.6 L (11.8-15.2) gm/dl Hct 18.6 L* (35.5-45.6) % MCHC 36 H (32-34) % RDW 18.7 H (13.2-15.2) % Lymph % (Auto) 10.2 L (13.4-35.0) % [place] % (Auto) 12.4 H (0.0-7.3) % Eos % (Auto) 4.5 H (0.0-4.3) % [place] # 2.3 H (0.0-0.8) K/mm3 Eos # 0.9 H (0.0-0.4) K/mm3 Seg Neutrophils % 72.2 H (40.0-70.0) % Seg Neutrophils # 13.7 H (1.8-7.7) K/mm3 Percent Retic 3.82 H (0.78-2.58) % Sodium 136 L (137-145) mmol/L Carbon Dioxide 20 L (22-30) mmol/L Creatinine 0.3 L (0.8-1.5) mg/dL Crossmatch See Detail Assessment and Plan Cultures Blood culture 07/15/19 C albicans 07/17/19 urine culture - NGTD Assessment: 34 yo M PMhx Sickle cell disease, splenectomy, right sided thoracic wall port admitted with hemolytic anemia, iron overload. Now found to be septic with Candidemia. 1. Acute sepsis - with fevers and leukocytosis. Fevers now resolved. Secondary to Candidemia. 2. Candidemia - Secondary to port. Unfortunately fungemia is an absolute indication to port removal, as such with consult vascular surgery to remove port . Would repeat blood cultures after port removal, and ok for replacement after 2 days of negative cultures after removal. Would change from fluconazole to micafungin in the meantime at least until cultures documented negative. 3. Sickle cell disease - intractable pain, requires port for infusions 4. Splenectomy - Please ensure vaccinated for Pneumococcus, meningococcus, HIb Recs: - stopped fluconazole - started micafungin 100mg q24h - stopped vancomycin as no evidence of MRSA infection - consulted vascular for removal of port. Thank you for the consult, we will continue to follow. [facility] ([facility]) M: [phone] O: [phone] F: [phone]
--- NOTE | 2019-07-20 12:44 | Consultation ---
History of Present Illness - Reason for Consult Consult date: 07/20/19 port infection - History of Present Illness Patient with a history of sickle cell disease who had a port placed in 2015. In March, the patient was admitted to [facility] and treated for sepsis. During this admission, blood cultures drawn through the port demonstrate Purvi. On examination, there is no erythema exudates or tenderness at the port pocket or along the catheter tract. Past History Past Medical History: anemia Past Surgical History: Other (Port-a-cath placement) Social history: lives with family Family history: no significant family history Medications and Allergies Allergies Allergy/AdvReac Type Severity Reaction Status Date / Time ceftriaxone sodium Allergy Unknown Verified 03/09/18 07:35 [From Rocephin] meperidine HCl [From Demerol] Allergy Unknown Verified 03/09/18 07:35 Home Medications Medication Instructions Recorded Confirmed Last Taken Type Morphine ER [Ms Contin ER] 60 mg PO Q12H 03/09/18 07/15/19 05/09/18 History Oxycodone HCl [oxyCODONE] 10 mg PO Q8H 03/09/18 07/15/19 05/09/18 History Folic Acid [Folvite] 1 mg PO QDAY #30 tablet 05/15/19 07/15/19 Unknown Rx Hydroxyurea 1,000 mg PO QDAY capsule 05/15/19 07/15/19 Unknown Rx carvediloL [Coreg] 25 mg PO BID #60 tablet 05/15/19 07/15/19 Unknown Rx diphenhydrAMINE [Benadryl] 25 mg IV Q6H PRN vial 05/15/19 07/15/19 Unknown Rx Sennosides Tab [Senokot] 17.2 mg PO PRN PRN 07/15/19 07/15/19 Unknown History Active Meds: Active Medications Acetaminophen (Tylenol) 650 mg PO Q6H PRN PRN Reason: Non Cardiac Pain or Temp>100.5 Last Admin: 07/17/19 12:43 Dose: 650 mg Documented by: Carvedilol (Coreg) 25 mg PO BID [facility] Last Admin: 07/20/19 10:26 Dose: 25 mg Documented by: Diphenhydramine HCl (Benadryl) 12.5 mg IV Q3H PRN PRN Reason: Itching Last Admin: 07/20/19 11:46 Dose: 12.5 mg Documented by: Folic Acid (Folvite) 1 mg PO QDAY [facility] Last Admin: 07/20/19 10:26 Dose: 1 mg Documented by: Heparin Sodium (Porcine) (Heparin) 5,000 unit SUB-Q Q12HR [facility] Last Admin: 07/20/19 10:26 Dose: 5,000 unit Documented by: Hydromorphone HCl (Dilaudid) 3 mg IV Q3H PRN PRN Reason: Pain , Severe (7-10) Last Admin: 07/20/19 11:45 Dose: 3 mg Documented by: Dextrose/Sodium Chloride (D5ns 0.2%) 1,000 mls @ 175 mls/hr IV DIRECT [facility] Last Admin: 07/20/19 11:47 Dose: 175 mls/hr Documented by: Micafungin Sodium 100 mg/ (Sodium Chloride) 100 mls @ 100 mls/hr IV QDAY [facility]; Protocol Morphine Sulfate (Ms Contin Er) 60 mg PO Q12HR [facility] Last Admin: 07/20/19 10:25 Dose: 60 mg Documented by: Senna (Senokot) 17.2 mg PO Q12H PRN PRN Reason: Constipation Sodium Chloride (Sodium Chloride Flush Syringe 10 Ml) 10 ml IV BID [facility] Last Admin: 07/20/19 10:29 Dose: 10 ml Documented by: Sodium Chloride (Sodium Chloride Flush Syringe 10 Ml) 10 ml IV PRN PRN PRN Reason: LINE FLUSH Last Admin: 07/20/19 04:47 Dose: 10 ml Documented by: Review of Systems All systems: negative Exam - Constitutional Vitals: Temp Pulse Resp BP Pulse Ox 99.9 F H 78 18 102/52 94 07/20/19 05:24 07/20/19 10:26 07/20/19 05:24 07/20/19 10:26 07/20/19 05:24 General appearance: Present: no acute distress - EENT Eyes: Present: EOM intact ENT: hearing intact - Neck Neck: Present: supple, normal ROM - Respiratory Respiratory effort: normal - Extremities Extremities: no ischemia - Abdominal General gastrointestinal: Present: deferred - Rectal Rectal Exam: deferred - Psychiatric Psychiatric: appropriate mood/affect, cooperative Results - Labs CBC & Chem 7: 07/20/19 05:10 07/20/19 05:10 Labs: Abnormal lab results 07/17/19 07/20/19 07/20/19 Range/Units 23:10 05:10 05:10 WBC 19.0 H (4.5-11.0) K/mm3 RBC 2.12 L (3.65-5.03) M/mm3 Hgb 6.6 L (11.8-15.2) gm/dl Hct 18.6 L* (35.5-45.6) % MCHC 36 H (32-34) % RDW 18.7 H (13.2-15.2) % Lymph % (Auto) 10.2 L (13.4-35.0) % [place] % (Auto) 12.4 H (0.0-7.3) % Eos % (Auto) 4.5 H (0.0-4.3) % [place] # 2.3 H (0.0-0.8) K/mm3 Eos # 0.9 H (0.0-0.4) K/mm3 Seg Neutrophils % 72.2 H (40.0-70.0) % Seg Neutrophils # 13.7 H (1.8-7.7) K/mm3 Percent Retic 3.82 H (0.78-2.58) % Sodium 136 L (137-145) mmol/L Carbon Dioxide 20 L (22-30) mmol/L Creatinine 0.3 L (0.8-1.5) mg/dL Crossmatch See Detail 07/20/19 Range/Units 10:30 WBC (4.5-11.0) K/mm3 RBC (3.65-5.03) M/mm3 Hgb (11.8-15.2) gm/dl Hct (35.5-45.6) % MCHC (32-34) % RDW (13.2-15.2) % Lymph % (Auto) (13.4-35.0) % [place] % (Auto) (0.0-7.3) % Eos % (Auto) (0.0-4.3) % [place] # (0.0-0.8) K/mm3 Eos # (0.0-0.4) K/mm3 Seg Neutrophils % (40.0-70.0) % Seg Neutrophils # (1.8-7.7) K/mm3 Percent Retic (0.78-2.58) % Sodium (137-145) mmol/L Carbon Dioxide (22-30) mmol/L Creatinine (0.8-1.5) mg/dL Crossmatch See Detail Assessment and Plan Patient with an indwelling port with concern for catheter colonization with purvi. No active port pocket infection. Patient will be scheduled for port removal tomorrow. Following a catheter holiday weekend, the patient will need to have a PICC line placed if additional long-term IV access is needed.
[2019-07-20] MEDS: MICAFUNGIN 100 MG in SODIUM CHLORIDE 0.9% 100 ML IV SCH (14:55)
[2019-07-20] MEDS ORDERED: SODIUM CHLORIDE 0.9% 500 ML 500 ML ONE (16:28)
[2019-07-20] MEDS: ACETAMINOPHEN 325 MG TAB PO PRN ×2 (17:07→23:17)
[2019-07-20] MEDS ORDERED: ACETAMINOPHEN 325 MG TAB PO ONE (17:11)
[2019-07-20] MEDS ORDERED: diphenhydrAMINE 25 MG CAP PO ONE (17:11)
--- NOTE | 2019-07-20 22:00 | Progress Note ---
Assessment and Plan - Patient Problems (1) Acute hemolytic anemia Current Visit: No Status: Acute Plan to address problem: judicious blood transfusion (2) Dehydration Current Visit: No Status: Acute Plan to address problem: hydration. (3) Iron overload due to repeated red blood cell transfusions Current Visit: Yes Status: Acute Plan to address problem: iron chelating. (4) Hypoxia Current Visit: Yes Status: Acute Plan to address problem: oxygen (5) SIRS due to infectious process without acute organ dysfunction Current Visit: Yes Status: Acute Plan to address problem: Unable to determine clinically, if present on admission. Will tx with anti fungal, and consult ID. Subjective Date of service: 07/20/19 Principal diagnosis: SCD/pain crisis, anemia symptomatic. Interval history: Patient seen/examined, resting in bed ok, Temp 100.5. WBc 19,000+, cultures drawn, IV ABX started , until cultures resulted.Patient has chroni iron overload, and will give iron chelating agent. Patient seen/examined, resting in bed, labs/records reviewed, case d/w patient. c/o pain now at 7/10. just finishing bag#1 of 3 Desf.Patient is coughing, and will get CXY. Patient seen/examined, resting in bed ok. 24Tmax 102, defervesed with tylenol. IV ABX , including vancomycin added.So far cultures negative, urine cult pending.Hgb still low, and will give additional 1unit of blood .IV Desf c ontinues day2, of 3. Patient seen/examined, resting in bed, culture positive for jose from the po rt. will treat with antifungal, and consult ID., hopefully, be able to save the port. Patient seen/examinwd, resting in bed, records reviewed, case d/w patient. ID consulted. patient continues on DESF, and Fluconazole, and continue pain control. Patient seen/examined, resting in bed, labs/records reviewed, as well as consult notes, and appreciated.he is tolerating blood transfusion ok.Follow Id/V ascular.Will ask for picc line at the same time of port removal. Objective - Constitutional Vitals: Vital Signs - 12hr 07/20/19 07/20/19 07/20/19 10:24 10:26 11:53 Temperature 100.3 F H Pulse Rate 78 78 Respiratory 20 Rate Blood Pressure 102/52 102/52 102/58 O2 Sat by Pulse 95 Oximetry 07/20/19 07/20/19 07/20/19 16:40 16:55 17:25 Temperature 100.2 F H 101.9 F H 101.3 F H Pulse Rate 75 75 74 Respiratory 18 18 18 Rate Blood Pressure 107/48 107/48 108/64 O2 Sat by Pulse Oximetry 07/20/19 07/20/19 07/20/19 17:34 17:55 18:25 Temperature 100.8 F H 99.3 F Pulse Rate 77 74 Respiratory 18 18 Rate Blood Pressure 108/61 106/54 113/62 O2 Sat by Pulse Oximetry 07/20/19 07/20/19 18:40 21:32 Temperature 100.1 F H Pulse Rate 75 Respiratory 18 Rate Blood Pressure 105/50 O2 Sat by Pulse 98 Oximetry General appearance: Present: mild distress, well-nourished - EENT Eyes: PERRL, EOM intact ENT: hearing intact, clear oral mucosa Ears: bilateral: normal - Neck Neck: supple, normal ROM - Respiratory Respiratory effort: normal Respiratory: bilateral: CTA - Breasts Breasts: deferred - Cardiovascular Rhythm: regular Heart Sounds: Present: S1 & S2. Absent: gallop, rub Extremities: pulses intact, No edema, normal color, Full ROM - Gastrointestinal General gastrointestinal: Present: soft, non-tender, non-distended, normal bowel sounds Rectal Exam: deferred - Genitourinary Male genitourinary: deferred - Integumentary Integumentary: clear, warm, dry - Musculoskeletal Musculoskeletal: 1, strength equal bilaterally - Neurologic Neurologic: moves all extremities - Psychiatric Psychiatric: memory intact, appropriate mood/affect, intact judgment & insight - Labs CBC & Chem 7: 07/20/19 05:10 07/20/19 05:10 Labs: Abnormal lab results 07/17/19 07/20/19 07/20/19 Range/Units 23:10 05:10 05:10 WBC 19.0 H (4.5-11.0) K/mm3 RBC 2.12 L (3.65-5.03) M/mm3 Hgb 6.6 L (11.8-15.2) gm/dl Hct 18.6 L* (35.5-45.6) % MCHC 36 H (32-34) % RDW 18.7 H (13.2-15.2) % Lymph % (Auto) 10.2 L (13.4-35.0) % [place] % (Auto) 12.4 H (0.0-7.3) % Eos % (Auto) 4.5 H (0.0-4.3) % [place] # 2.3 H (0.0-0.8) K/mm3 Eos # 0.9 H (0.0-0.4) K/mm3 Seg Neutrophils % 72.2 H (40.0-70.0) % Seg Neutrophils # 13.7 H (1.8-7.7) K/mm3 Percent Retic 3.82 H (0.78-2.58) % Sodium 136 L (137-145) mmol/L Carbon Dioxide 20 L (22-30) mmol/L Creatinine 0.3 L (0.8-1.5) mg/dL Crossmatch See Detail 07/20/19 Range/Units 10:30 WBC (4.5-11.0) K/mm3 RBC (3.65-5.03) M/mm3 Hgb (11.8-15.2) gm/dl Hct (35.5-45.6) % MCHC (32-34) % RDW (13.2-15.2) % Lymph % (Auto) (13.4-35.0) % [place] % (Auto) (0.0-7.3) % Eos % (Auto) (0.0-4.3) % [place] # (0.0-0.8) K/mm3 Eos # (0.0-0.4) K/mm3 Seg Neutrophils % (40.0-70.0) % Seg Neutrophils # (1.8-7.7) K/mm3 Percent Retic (0.78-2.58) % Sodium (137-145) mmol/L Carbon Dioxide (22-30) mmol/L Creatinine (0.8-1.5) mg/dL Crossmatch See Detail
[2019-07-21] MEDS: D5W/0.2% NACL 1,000 ML IV SCH ×3 (04:15→21:11)
[2019-07-21] MEDS: HYDROmorphone 1 MG/1 ML INJ IV PRN ×5 (05:10→20:58)
[2019-07-21] MEDS: diphenhydrAMINE 50 MG/ML VIAL IV PRN ×5 (05:11→20:58)
[2019-07-21 08:46] LABS: Hematocrit 21.6 % (35.5-45.6); Hemoglobin 7.5 gm/dl (11.8-15.2); Mean Corpuscular HGB Conc 35 % (32-34); Mean Corpuscular Volume 90 fl (84-94); Platelet Count 346 K/mm3 (140-440); Red Blood Count 2.39 M/mm3 (3.65-5.03)
[2019-07-21 09:07] LABS: BUN/Creatinine Ratio 27; Blood Urea Nitrogen 8 mg/dL (9-20); Calcium 8.9 mg/dL (8.4-10.2); Hemolysis Index 5
[2019-07-21 09:50] LABS: Band Neutrophils # (Manual) 0.2 K/mm3; Basophils % (Manual) 0 % (0.0-1.8); Total Cells Counted 100
[2019-07-21 09:51] LABS: Anisocytosis 1+; Hypochromasia 1+; Target Cells Few
[2019-07-21 09:53] LABS: Macrocytosis 1+; Platelet Estimate Consistent w Auto; Sickle Cells Few
[2019-07-21] MEDS: HEPARIN 5,000 UNIT/1 ML VIAL SUB-Q SCH ×2 (10:00→21:07)
--- NOTE | 2019-07-21 11:29 | Progress Note ---
Assessment and Plan Cultures Blood culture 07/15/19 C albicans 07/17/19 urine culture - NGTD Assessment: 34 yo M PMhx Sickle cell disease, splenectomy, right sided thoracic wall port admitted with hemolytic anemia, iron overload. Now found to be septic with Candidemia. 1. Acute sepsis - with fevers and leukocytosis. Fevers now resolved. Secondary to Candidemia. 2. Candidemia - Secondary to port. Unfortunately fungemia is an absolute indication to port removal, as such with consult vascular surgery to remove port. Would repeat blood cultures after port removal, and ok for replacement after 2 days of negative cultures after removal. Would change from fluconazole to micafungin in the meantime at least until cultures documented negative. 3. Sickle cell disease - intractable pain, requires port for infusions 4. Splenectomy - Please ensure vaccinated for Pneumococcus, meningococcus, HIb Recs: - micafungin 100mg q24h - stopped vancomycin as no evidence of MRSA infection - consulted vascular for removal of port - will remove - Please await negative cultures after port replacement to place new permanent/semi-permanent line such as PICC. If access required in the interim, please place temporary line until we have documented clearance of the infection. - ordered fungal and aerobic/anaerobic blood cultures Thank you for the consult, we will continue to follow. [facility] ([facility]) M: [phone] O: [phone] F: [phone] Subjective Date of service: 07/21/19 Principal diagnosis: SCD/pain crisis, anemia symptomatic. Interval history: Remains febrile, with leukocytosis. Objective - Exam Narrative Exam: General Normal appearance, well developed, no acute distress Eyes - PERRLA, EOM intact ENT - Moist mucous membranes, no lymphadenopathy Neck - No noticeable or palpable swelling, redness or rash around throat or on face Lymph Nodes - No lymphadenopathy Cardiovascular - RRR no m/r/g, no JVD, no carotid bruits. R port Lungs - Clear to auscultation, no use of accessory muscles, no crackles or wheezes. Skin - No rashes, skin warm and dry, no erythematous areas Abdomen - Normal bowel sounds, abdomen soft and nontender Extremities - No edema, cyanosis or clubbing Musculoskeletal - 5/5 strength, normal range of motion, no swollen or erythematous joints. Neurological Alert and oriented x 3, CN 2-12 grossly intact. - Constitutional Vitals: Vital Signs Temp Pulse Resp BP Pulse Ox 99.9 F H 73 18 107/64 95 07/21/19 06:12 07/21/19 06:12 07/21/19 06:12 07/21/19 06:12 07/21/19 06:12 Temperature -Last 24 Hours Temperature 99.9 F Temperature 101.2 F Temperature 102.1 F Temperature 100.1 F Temperature 99.3 F Temperature 100.8 F Temperature 101.3 F Temperature 101.9 F Temperature 100.2 F Temperature 100.3 F - Labs CBC & Chem 7: 07/21/19 07:57 07/21/19 07:57 Labs: Abnormal lab results 07/17/19 07/20/19 07/21/19 Range/Units 23:10 10:30 07:57 WBC 23.4 H (4.5-11.0) K/mm3 RBC 2.39 L (3.65-5.03) M/mm3 Hgb 7.5 L (11.8-15.2) gm/dl Hct 21.6 L (35.5-45.6) % MCHC 35 H (32-34) % RDW 19.0 H (13.2-15.2) % Seg Neuts % (Manual) 76.0 H (40.0-70.0) % Lymphocytes % (Manual) 5.0 L (13.4-35.0) % Monocytes % (Manual) 15.0 H (0.0-7.3) % Seg Neutrophils # Man 17.8 H (1.8-7.7) K/mm3 Monocytes # (Manual) 3.5 H (0.0-0.8) K/mm3 Eosinophils # (Manual) 0.7 H (0.0-0.4) K/mm3 Sodium (137-145) mmol/L Carbon Dioxide (22-30) mmol/L BUN (9-20) mg/dL Creatinine (0.8-1.5) mg/dL Crossmatch See Detail See Detail 07/21/19 Range/Units 07:57 WBC (4.5-11.0) K/mm3 RBC (3.65-5.03) M/mm3 Hgb (11.8-15.2) gm/dl Hct (35.5-45.6) % MCHC (32-34) % RDW (13.2-15.2) % Seg Neuts % (Manual) (40.0-70.0) % Lymphocytes % (Manual) (13.4-35.0) % Monocytes % (Manual) (0.0-7.3) % Seg Neutrophils # Man (1.8-7.7) K/mm3 Monocytes # (Manual) (0.0-0.8) K/mm3 Eosinophils # (Manual) (0.0-0.4) K/mm3 Sodium 133 L (137-145) mmol/L Carbon Dioxide 21 L (22-30) mmol/L BUN 8 L (9-20) mg/dL Creatinine 0.3 L (0.8-1.5) mg/dL Crossmatch
[2019-07-21] MEDS ORDERED: fentaNYL 100 MCG/2 ML INJ ONE (12:20)
[2019-07-21] MEDS ORDERED: LIDOCAINE (2%) 20 MG/1 ML VIAL 20 ML MDV INFILTRATI ONE (12:20)
[2019-07-21] MEDS ORDERED: HEPARIN/NS 5000 UNIT/500ML 500 ML IR ONE (12:20)
[2019-07-21] MEDS ORDERED: SODIUM CHLORIDE 0.9% 250ML 250 ML ONE (12:27)
[2019-07-21] MEDS: MIDAZOLAM 2 MG/2 ML INJ ONE ×2 (12:56→13:13)
[2019-07-21] MEDS ORDERED: diphenhydrAMINE 50 MG/ML VIAL ONE (13:08)
--- NOTE | 2019-07-21 13:51 | Post Operative Note ---
Pre-op diagnosis: Sickle Cell Crisis, Infected Port Post-op diagnosis: same Procedure: 1. Left IJ Central Venous Cathter Insertion 2. Right IJ Port Removal 3. Monitored Conscious Sedation Anesthesia: MAC, local Surgeon: SARAH CERVANTES Estimated blood loss: minimal Pathology: none Specimen disposition: to lab Condition: stable Disposition: floor
[2019-07-21] MEDS: MICAFUNGIN 100 MG in SODIUM CHLORIDE 0.9% 100 ML IV SCH (14:23)
[2019-07-21] MEDS: carvediloL 25 MG TAB PO SCH ×2 (14:33→21:06)
[2019-07-21] MEDS: MORPHINE 30 MG ER TAB PO SCH ×2 (14:33→20:59)
[2019-07-21] MEDS: FOLIC ACID 1 MG TAB PO SCH (14:34)
--- NOTE | 2019-07-21 14:55 | Operative Report ---
STAFF SURGEON: Dr. Nitin Haynes. PREOPERATIVE DIAGNOSES: 1. Sickle cell crisis. 2. Infected right IJ port. POSTOPERATIVE DIAGNOSES: 1. Sickle cell crisis. 2. Infected right IJ port. PROCEDURES PERFORMED: 1. Left IJ central venous catheter insertion. 2. Right IJ port removal. 3. Monitored conscious sedation for 15 minutes. COMPLICATIONS: None. ESTIMATED BLOOD LOSS: Less than 10 mL. ANESTHESIA: Local MAC. INDICATIONS FOR PROCEDURE: This is a 34-year-old gentleman with the sickle cell, who is hospitalized with an acute sickle cell crisis, who is also noted to have a positive blood culture from his right IJ port, growing a fungus. Therefore, a vascular consultation was obtained for a port removal. The patient also has issues with the ability to obtain peripheral venous IVs and therefore, was also requested to have a central venous catheter placed simultaneously. The patient was explained the risks, benefits, and alternatives to procedure and expressed the understanding and wished to proceed. DESCRIPTION OF PROCEDURE: After appropriate consent was obtained, the patient was brought back to the laboratory coordinator and placed on the table in supine position. The left neck and chest were prepped and draped in a sterile fashion with ChloraPrep. Appropriate timeout was performed indicating the correct patient, procedure, and site of the procedure. We then began to obtain a percutaneous access of the left internal jugular vein using a micropuncture technique under ultrasound guidance. Once we obtained the access, needle was exchanged for a micropuncture sheath using the Seldinger technique. We then proceeded to place a stiff J wire into the IVC. The micropuncture sheath was removed. The access site was thoroughly dilated appropriately and a 7-Syriac central venous catheter was then placed over the wire with the tip of the catheter at the SVC right atrial junction. The wire was removed. All 3 lumens yahaira blood appropriately and were flushed with heparinized saline. The catheter was sutured in place with a 3-0 nylon and then appropriate dressing was placed. We then proceeded to turn our attention to the right IJ port. The right chest wall was prepped and draped in the usual sterile fashion with ChloraPrep. We then proceeded to make a transverse incision overlying the port on the chest wall and this was carried through the subcutaneous tissue with a combination of blunt dissection and electrocautery. The port was freed around the surrounding tissue with a blunt dissection. Once the port hub was freed, this was then able to be removed in addition with a catheter portion in its entirety. The tip of the catheter was sent off for culture and then proceeded to obtain hemostasis in the wound pocket with electrocautery. The wound pocket was then flushed with saline and we then proceeded to close the wound with the deep subcutaneous layer with the interrupted 3-0 Vicryl, which was also used to close off catheter exit site and then the skin was approximated with 4-0 Monocryl and Dermabond dressing. The patient tolerated the procedure well, emerged from the conscious sedation, and was sent to recovery in a stable condition. JOB# [id number] INGA/JOSESITO
[2019-07-21] MEDS ORDERED: SODIUM CHLORIDE 0.9% 500 ML 500 ML IV NR (17:05)
--- NOTE | 2019-07-21 17:11 | Progress Note ---
Assessment and Plan - Patient Problems (1) Acute hemolytic anemia Current Visit: No Status: Acute Plan to address problem: judicious blood transfusion (2) Dehydration Current Visit: No Status: Acute Plan to address problem: hydration. (3) Iron overload due to repeated red blood cell transfusions Current Visit: Yes Status: Acute Plan to address problem: iron chelating. (4) Hypoxia Current Visit: Yes Status: Acute Plan to address problem: oxygen (5) SIRS due to infectious process without acute organ dysfunction Current Visit: Yes Status: Acute Plan to address problem: Unable to determine clinically, if present on admission. Will tx with anti fungal, and consult ID. (6) Sepsis associated with internal vascular access Current Visit: Yes Status: Acute Plan to address problem: associated with Fungal infection also.Continue to follow ID. Subjective Date of service: 07/21/19 Principal diagnosis: SCD/pain crisis, anemia symptomatic. Interval history: Patient seen/examined, resting in bed ok, Temp 100.5. WBc 19,000+, cultures drawn, IV ABX started , until cultures resulted.Patient has chroni iron overload, and will give iron chelating agent. Patient seen/examined, resting in bed, labs/records reviewed, case d/w patient. c/o pain now at 7/10. just finishing bag#1 of 3 Desf.Patient is coughing, and will get CXY. Patient seen/examined, resting in bed ok. 24Tmax 102, defervesed with tylenol. IV ABX , including vancomycin added.So far cultures negative, urine cult pendin g.Hgb still low, and will give additional 1unit of blood .IV Desf continues day2, of 3. Patient seen/examined, resting in bed, culture positive for jose from the port. will treat with antifungal, and consult ID., hopefully, be able to save the port. Patient seen/examinwd, resting in bed, records reviewed, case d/w patient. ID consulted. patient continues on DESF, and Fluconazole, and continue pain control. Patient seen/examined, resting in bed, labs/records reviewed, as well as consult notes, and appreciated.he is tolerating blood transfusion ok.Follow Id/Vascular.Will ask for picc line at the same time of port removal. Patient seen/examined, resting in bed, notes/records reviewed, case d/w patient. Will need more blood transfusion. Objective - Constitutional Vitals: Vital Signs - 12hr 07/21/19 06:12 Temperature 99.9 F H Pulse Rate 73 Respiratory 18 Rate Blood Pressure 107/64 O2 Sat by Pulse 95 Oximetry General appearance: Present: mild distress, well-nourished - EENT Eyes: PERRL, EOM intact ENT: hearing intact, clear oral mucosa Ears: bilateral: normal - Neck Neck: supple, normal ROM - Respiratory Respiratory effort: normal Respiratory: bilateral: CTA - Breasts Breasts: deferred, normal - Cardiovascular Rhythm: regular Heart Sounds: Present: S1 & S2. Absent: gallop, rub Extremities: pulses intact, No edema, normal color, Full ROM - Gastrointestinal General gastrointestinal: Present: soft, non-tender, non-distended, normal bowel sounds Rectal Exam: deferred - Genitourinary Male genitourinary: deferred - Integumentary Integumentary: clear, warm, dry - Musculoskeletal Musculoskeletal: 1, strength equal bilaterally - Neurologic Neurologic: moves all extremities - Psychiatric Psychiatric: memory intact, appropriate mood/affect, intact judgment & insight - Labs CBC & Chem 7: 07/21/19 07:57 07/21/19 07:57 Labs: Abnormal lab results 07/20/19 07/21/19 07/21/19 Range/Units 10:30 07:57 07:57 WBC 23.4 H (4.5-11.0) K/mm3 RBC 2.39 L (3.65-5.03) M/mm3 Hgb 7.5 L (11.8-15.2) gm/dl Hct 21.6 L (35.5-45.6) % MCHC 35 H (32-34) % RDW 19.0 H (13.2-15.2) % Seg Neuts % (Manual) 76.0 H (40.0-70.0) % Lymphocytes % (Manual) 5.0 L (13.4-35.0) % Monocytes % (Manual) 15.0 H (0.0-7.3) % Seg Neutrophils # Man 17.8 H (1.8-7.7) K/mm3 Monocytes # (Manual) 3.5 H (0.0-0.8) K/mm3 Eosinophils # (Manual) 0.7 H (0.0-0.4) K/mm3 Sodium 133 L (137-145) mmol/L Carbon Dioxide 21 L (22-30) mmol/L BUN 8 L (9-20) mg/dL Creatinine 0.3 L (0.8-1.5) mg/dL Crossmatch See Detail
--- NOTE | 2019-07-21 19:40 | XRay Report ---
CHEST 1 VIEW INDICATION / CLINICAL INFORMATION: port removal. COMPARISON: 07/16/2019 FINDINGS: SUPPORT DEVICES: The right port has been removed. A left central venous catheter overlies the superior vena cava. HEART / MEDIASTINUM: Moderate cardiomegaly, unchanged LUNGS / PLEURA: Slight prominence of interstitial markings bilaterally is again noted, not noticeably changed. No pneumothorax. ADDITIONAL FINDINGS: No significant additional findings. IMPRESSION: 1. Cardiomegaly and mild interstitial disease. Signer Name: Jack Armas MD Signed: 07/21/2019 7:36 PM Workstation Name: [id number]
[2019-07-22] MEDS: HYDROmorphone 1 MG/1 ML INJ IV PRN ×8 (00:01→22:05)
[2019-07-22] MEDS: diphenhydrAMINE 50 MG/ML VIAL IV PRN ×8 (00:01→22:06)
[2019-07-22] MEDS: D5W/0.2% NACL 1,000 ML IV SCH ×4 (06:32→21:45)
[2019-07-22] MEDS: MICAFUNGIN 100 MG in SODIUM CHLORIDE 0.9% 100 ML IV SCH (10:26)
[2019-07-22] MEDS: MORPHINE 30 MG ER TAB PO SCH ×2 (10:37→22:06)
[2019-07-22] MEDS: FOLIC ACID 1 MG TAB PO SCH (10:38)
[2019-07-22] MEDS: carvediloL 25 MG TAB PO SCH ×2 (10:38→21:50)
[2019-07-22] MEDS: HEPARIN 5,000 UNIT/1 ML VIAL SUB-Q SCH ×2 (10:40→21:54)
[2019-07-22] MEDS ORDERED: SODIUM CHLORIDE 0.9% 500 ML 500 ML IV SCH (12:00)
[2019-07-22] MEDS: ACETAMINOPHEN 325 MG TAB PO PRN (12:03)
--- NOTE | 2019-07-22 13:48 | Progress Note ---
Subjective Principal diagnosis: SCD/pain crisis, anemia symptomatic. Interval history: s/p right chest wall port removal patient doing well chest wall incision c/d/i, no fullness patient does not want the PICC line placed on Wednesday and would like a break from central venous access once discharged Objective - Constitutional Vitals: Vital Signs - 12hr 07/22/19 07/22/19 07/22/19 05:37 10:37 10:38 Temperature 98.7 F Pulse Rate 69 69 Respiratory 18 Rate Blood Pressure 120/68 111/48 111/48 O2 Sat by Pulse 96 Oximetry 07/22/19 07/22/19 07/22/19 11:34 12:05 12:10 Temperature 122.0 F H 98.1 F Pulse Rate 72 Respiratory 14 Rate Blood Pressure 110/58 121/64 O2 Sat by Pulse 96 Oximetry 07/22/19 07/22/19 13:13 13:30 Temperature 98.4 F 98.4 F Pulse Rate 69 70 Respiratory 16 16 Rate Blood Pressure 111/62 118/70 O2 Sat by Pulse 96 97 Oximetry - Labs CBC & Chem 7: 07/21/19 07:57 07/21/19 07:57 Labs: Abnormal lab results 07/20/19 Range/Units 10:30 Crossmatch See Detail Medications & Allergies - Medications Allergies/Adverse Reactions: Allergies ceftriaxone sodium [From Rocephin] Allergy (Verified 03/09/18 07:35) Unknown meperidine HCl [From Demerol] Allergy (Verified 03/09/18 07:35) Unknown Home Medications: Home Medications Medication Instructions Recorded Confirmed Last Taken Type Morphine ER [Ms Contin ER] 60 mg PO Q12H 03/09/18 07/15/19 05/09/18 History Oxycodone HCl [oxyCODONE] 10 mg PO Q8H 03/09/18 07/15/19 05/09/18 History Folic Acid [Folvite] 1 mg PO QDAY #30 tablet 05/15/19 07/15/19 Unknown Rx Hydroxyurea 1,000 mg PO QDAY capsule 05/15/19 07/15/19 Unknown Rx carvediloL [Coreg] 25 mg PO BID #60 tablet 05/15/19 07/15/19 Unknown Rx diphenhydrAMINE [Benadryl] 25 mg IV Q6H PRN vial 05/15/19 07/15/19 Unknown Rx Sennosides Tab [Senokot] 17.2 mg PO PRN PRN 07/15/19 07/15/19 Unknown History Active Medications: Generic Name Dose Route Start Last Admin Trade Name Freq PRN Reason Stop Dose Admin Acetaminophen 650 mg 07/15/19 17:54 07/22/19 12:03 Tylenol PO 650 mg Q6H PRN Administration Non Cardiac Pain or Temp>100.5 Carvedilol 25 mg 07/15/19 22:00 07/22/19 10:38 Coreg PO 25 mg BID WAYNE Administration Diphenhydramine HCl 12.5 mg 07/14/19 16:12 07/22/19 12:28 Benadryl IV 12.5 mg Q3H PRN Administration Itching Folic Acid 1 mg 07/15/19 10:00 07/22/19 10:38 Folvite PO 1 mg QDAY WAYNE Administration Heparin Sodium (Porcine) 5,000 unit 07/14/19 22:00 07/22/19 10:40 Heparin SUB-Q 5,000 unit Q12HR WAYNE Administration Hydromorphone HCl 3 mg 07/14/19 15:38 07/22/19 12:26 Dilaudid IV 3 mg Q3H PRN Administration Pain , Severe (7-10) Dextrose/Sodium Chloride 1,000 mls @ 175 mls/hr 07/14/19 17:00 07/22/19 06:38 D5ns 0.2% IV 175 mls/hr DIRECT WAYNE Administration Micafungin Sodium 100 mg/ 100 mls @ 100 mls/hr 07/20/19 13:00 07/22/19 10:26 Sodium Chloride IV 100 mls/hr QDAY WAYNE Administration Protocol Sodium Chloride 500 mls @ 30 mls/hr 07/22/19 12:00 Nacl 0.9% 500 Ml IV 07/22/19 23:59 DIRECT WAYNE Morphine Sulfate 60 mg 07/14/19 22:00 07/22/19 10:37 Ms Contin Er PO 60 mg Q12HR WAYNE Administration Senna 17.2 mg 07/15/19 17:48 Senokot PO Q12H PRN Constipation Sodium Chloride 10 ml 07/14/19 22:00 07/22/19 10:38 Sodium Chloride Flush Syringe 10 Ml IV 10 ml BID WAYNE Administration Sodium Chloride 10 ml 07/14/19 15:38 07/20/19 04:47 Sodium Chloride Flush Syringe 10 Ml IV 10 ml PRN PRN Administration LINE FLUSH
--- NOTE | 2019-07-22 20:13 | Progress Note ---
Assessment and Plan - Patient Problems (1) Acute hemolytic anemia Current Visit: No Status: Acute Plan to address problem: judicious blood transfusion (2) Dehydration Current Visit: No Status: Acute Plan to address problem: hydration. (3) Iron overload due to repeated red blood cell transfusions Current Visit: Yes Status: Acute Plan to address problem: iron chelating. (4) Hypoxia Current Visit: Yes Status: Acute Plan to address problem: oxygen (5) SIRS due to infectious process without acute organ dysfunction Current Visit: Yes Status: Acute Plan to address problem: Unable to determine clinically, if present on admission. Will tx with anti fungal, and consult ID. (6) Sepsis associated with internal vascular access Current Visit: Yes Status: Acute Plan to address problem: associated with Fungal infection also.Continue to follow ID. Subjective Date of service: 07/22/19 Principal diagnosis: SCD/pain crisis, anemia symptomatic. Interval history: Patient seen/examined, resting in bed ok, Temp 100.5. WBc 19,000+, cultures drawn, IV ABX started , until cultures resulted.Patient has chroni iron overload, and will give iron chelating agent. Patient seen/examined, resting in bed, labs/records reviewed, case d/w patient. c/o pain now at 7/10. just finishing bag#1 of 3 Desf.Patient is coughing, and will get CXY. Patient seen/examined, resting in bed ok. 24Tmax 102, defervesed with tylenol. IV ABX , including vancomycin added.So far cultures negative, urine cult pendin g.Hgb still low, and will give additional 1unit of blood .IV Desf continues day2, of 3. Patient seen/examined, resting in bed, culture positive for jose from the port. will treat with antifungal, and consult ID., hopefully, be able to save the port. Patient seen/examinwd, resting in bed, records reviewed, case d/w patient. ID consulted. patient continues on DESF, and Fluconazole, and continue pain control. Patient seen/examined, resting in bed, labs/records reviewed, as well as consult notes, and appreciated.he is tolerating blood transfusion ok.Follow Id/Vascular.Will ask for picc line at the same time of port removal. Patient seen/examined, resting in bed, notes/records reviewed, case d/w patient. Will need more blood transfusion. Patient seen/examined, resting in bed, records reviewed, case d/w patient.Will order the second blood culture. Objective - Constitutional Vitals: Vital Signs - 12hr 07/22/19 07/22/19 07/22/19 10:37 10:38 11:34 Temperature 122.0 F H Pulse Rate 69 72 Respiratory 14 Rate Blood Pressure 111/48 111/48 110/58 Blood Pressure [Left] O2 Sat by Pulse 96 Oximetry 07/22/19 07/22/19 07/22/19 12:05 12:10 13:13 Temperature 98.1 F 98.4 F Pulse Rate 69 Respiratory 16 Rate Blood Pressure 121/64 111/62 Blood Pressure [Left] O2 Sat by Pulse 96 Oximetry 07/22/19 07/22/19 07/22/19 13:30 14:00 14:30 Temperature 98.4 F 98.7 F 98.1 F Pulse Rate 70 71 61 Respiratory 16 18 16 Rate Blood Pressure 118/70 120/67 114/60 Blood Pressure [Left] O2 Sat by Pulse 97 98 98 Oximetry 07/22/19 07/22/19 07/22/19 15:00 15:30 16:00 Temperature 98.2 F 98.0 F 97.9 F Pulse Rate 71 68 68 Respiratory 18 16 16 Rate Blood Pressure 125/61 128/61 133/68 Blood Pressure [Left] O2 Sat by Pulse 97 98 98 Oximetry 07/22/19 07/22/19 16:07 16:08 Temperature 97.9 F Pulse Rate 68 Respiratory 16 Rate Blood Pressure Blood Pressure 133/68 [Left] O2 Sat by Pulse 98 Oximetry General appearance: Present: mild distress, well-nourished - EENT Eyes: PERRL, EOM intact ENT: hearing intact, clear oral mucosa Ears: bilateral: normal - Neck Neck: supple, normal ROM - Respiratory Respiratory effort: normal Respiratory: bilateral: CTA - Breasts Breasts: deferred - Cardiovascular Rhythm: regular Heart Sounds: Present: S1 & S2. Absent: gallop, rub Extremities: pulses intact, No edema, normal color, Full ROM - Gastrointestinal General gastrointestinal: Present: soft, non-tender, non-distended, normal bowel sounds Rectal Exam: deferred - Genitourinary Male genitourinary: deferred - Integumentary Integumentary: clear, warm, dry - Musculoskeletal Musculoskeletal: 1, strength equal bilaterally - Neurologic Neurologic: moves all extremities - Psychiatric Psychiatric: memory intact, appropriate mood/affect, intact judgment & insight - Labs CBC & Chem 7: 07/21/19 07:57 07/21/19 07:57 Labs: Abnormal lab results 07/20/19 Range/Units 10:30 Crossmatch See Detail
[2019-07-23] MEDS: diphenhydrAMINE 50 MG/ML VIAL IV PRN ×8 (01:13→23:51)
[2019-07-23] MEDS: HYDROmorphone 1 MG/1 ML INJ IV PRN ×8 (01:13→23:51)
[2019-07-23] MEDS: D5W/0.2% NACL 1,000 ML IV SCH ×4 (03:06→21:09)
[2019-07-23 05:39] LABS: Hematocrit 25.3 % (35.5-45.6); Hemoglobin 8.6 gm/dl (11.8-15.2)
[2019-07-23] MEDS: HEPARIN 5,000 UNIT/1 ML VIAL SUB-Q SCH ×2 (09:55→23:53)
[2019-07-23] MEDS: carvediloL 25 MG TAB PO SCH ×2 (09:56→23:52)
[2019-07-23] MEDS: MORPHINE 30 MG ER TAB PO SCH ×2 (09:56→23:52)
[2019-07-23] MEDS: FOLIC ACID 1 MG TAB PO SCH (09:57)
[2019-07-23] MEDS: MICAFUNGIN 100 MG in SODIUM CHLORIDE 0.9% 100 ML IV SCH ×2 (09:58→10:33)
--- NOTE | 2019-07-23 18:15 | Discharge Summary ---
Providers - Providers Date of Admission: 07/14/19 16:01 Date of discharge: 07/24/19 Attending physician: DANIEL DE JESUS 07/19/19 19:57 Consult to Physician [CONS] Routine Comment: Consulting Provider: JOCELYN BOATENG Physician Instructions: Reason For Exam: candidemia 07/20/19 11:03 Consult to Physician [CONS] Routine Comment: Consulting Provider: PRIETO OCAMPO Physician Instructions: Reason For Exam: Purvi port infection 07/20/19 22:00 Consult to Physician [CONS] Routine Comment: Consulting Provider: PRIETO DOAN Physician Instructions: picc line placement, following port removal. Reason For Exam: Patient will also need a picc line insertion.post Primary care physician: DANIEL DE JESUS Hospitalization Reason for admission: Scd, anemia, sepsis,w/o organ damage. Condition: Stable Hospital course: Patient seen/examined, resting in bed, records reviewed, case d/w patient , who states, that he feels fine, and wants to go home in am. BC so far in progress, No fever in 2days.Will D/c home, on diflucan , and do port replacement out patient. Disposition: DC- TO HOME OR SELFCARE - Discharge Diagnoses (1) Acute hemolytic anemia Status: Resolved (2) Dehydration Status: Resolved (3) Iron overload due to repeated red blood cell transfusions Status: Chronic (4) Hypoxia Status: Chronic (5) SIRS due to infectious process without acute organ dysfunction Status: Acute (6) Sepsis associated with internal vascular access Status: Resolved Core Measure Documentation - Palliative Care Palliative Care/ Comfort Measures: Not Applicable - Core Measures Any of the following diagnoses?: none Exam - Constitutional Vitals: Temp Pulse Resp BP Pulse Ox 98.9 F 74 24 116/61 96 07/23/19 11:52 07/23/19 11:52 07/23/19 11:52 07/23/19 11:52 07/23/19 11:52 General appearance: Present: mild distress, well-nourished - EENT Eyes: Present: PERRL ENT: hearing intact, clear oral mucosa - Neck Neck: Present: supple, normal ROM - Respiratory Respiratory effort: normal Respiratory: bilateral: CTA - Cardiovascular Heart Sounds: Present: S1 & S2. Absent: rub, click - Extremities Extremities: pulses symmetrical, No edema Peripheral Pulses: within normal limits - Abdominal General gastrointestinal: Present: soft, non-tender, non-distended, normal bowel sounds Male genitourinary: Present: deferred - Rectal Rectal Exam: deferred - Integumentary Integumentary: Present: clear, warm, dry - Musculoskeletal Musculoskeletal: gait normal, strength equal bilaterally - Psychiatric Psychiatric: appropriate mood/affect, intact judgment & insight - Neurologic Neurologic: CNII-XII intact, moves all extremities Plan Activity: no restrictions Diet: regular Follow up with: DANIEL DE JESUS DO [Primary Care Provider] - 7 Days SARAH CERVANTES MD [Staff Physician] - 14 Days
[2019-07-24] MEDS: diphenhydrAMINE 50 MG/ML VIAL IV PRN ×2 (03:35→07:10)
[2019-07-24] MEDS: HYDROmorphone 1 MG/1 ML INJ IV PRN ×2 (03:36→07:10)
[2019-07-24] MEDS: D5W/0.2% NACL 1,000 ML IV SCH (03:39)
[2019-07-24 05:52] VITALS: BP 117/63
--- NOTE | 2019-07-24 10:17 | Progress Note ---
Assessment and Plan Cultures Blood culture 07/15/19 C albicans 07/17/19 urine culture - NGTD Assessment: 34 yo M PMhx Sickle cell disease, splenectomy, right sided thoracic wall port admitted with hemolytic anemia, iron overload. Now found to be septic with Candidemia. 1. Acute sepsis - with fevers and leukocytosis. Fevers now resolved. Secondary to Candidemia. 2. Candidemia - Secondary to port. Unfortunately fungemia is an absolute indication to port removal, as such with consult vascular surgery to remove port. Would repeat blood cultures after port removal, and ok for replacement after 2 days of negative cultures after removal. Would change from fluconazole to micafungin in the meantime at least until cultures documented negative. 3. Sickle cell disease - intractable pain, requires port for infusions 4. Splenectomy - Please ensure vaccinated for Pneumococcus, meningococcus, HIb Recs: - micafungin 100mg q24h - consulted vascular for removal of port - will remove - ok for permanent line/port replacement - please discharge with fluconazole 400mg q24h to complete 2 weeks (stop date: 08/04/2019) Thank you for the consult, we will continue to follow. [facility] ([facility] M: [phone] O: [phone] F: [phone] Subjective Date of service: 07/24/19 Principal diagnosis: SCD/pain crisis, anemia symptomatic. Interval history: Afebrile now, with ongoing leukocytosis. Objective - Exam Narrative Exam: General Normal appearance, well developed, no acute distress Eyes - PERRLA, EOM intact ENT - Moist mucous membranes, no lymphadenopathy Neck - No noticeable or palpable swelling, redness or rash around throat or on face Lymph Nodes - No lymphadenopathy Cardiovascular - RRR no m/r/g, no JVD, no carotid bruits. R port removed Lungs - Clear to auscultation, no use of accessory muscles, no crackles or whee zes. Skin - No rashes, skin warm and dry, no erythematous areas Abdomen - Normal bowel sounds, abdomen soft and nontender Extremities - No edema, cyanosis or clubbing Musculoskeletal - 5/5 strength, normal range of motion, no swollen or erythematous joints. Neurological Alert and oriented x 3, CN 2-12 grossly intact. - Constitutional Vitals: Vital Signs Temp Pulse Resp BP Pulse Ox 99.7 F H 73 18 117/63 95 07/24/19 05:49 07/24/19 05:49 07/24/19 07:10 07/24/19 05:49 07/24/19 05:49 Temperature -Last 24 Hours Temperature 99.7 F Temperature 99.9 F Temperature 98.7 F Temperature 98.9 F - Labs CBC & Chem 7: 07/23/19 05:15 07/21/19 07:57 Labs: Abnormal lab results 07/20/19 Range/Units 10:30 Crossmatch See Detail
== END 2019-07-24 08:35 | disposition home or self-care (01) | DRG 252 ==
LOC: 3A 15:24 → UNDOADMIN 15:24 → 3A 16:01
PROVIDERS: ADMIT Internal Medicine Hematology & Oncology; ATTEND Internal Medicine Hematology & Oncology
PROC: 30233N1 Transfusion of Nonautologous Red Blood Cells into Peripheral Vein, Percutaneous Approach (ICD-10-PCS; 2019-07-15)
PROC: 02HV33Z Insertion of Infusion Device into Superior Vena Cava, Percutaneous Approach (ICD-10-PCS; principal; 2019-07-21)
PROC: 05PY03Z Removal of Infusion Device from Upper Vein, Open Approach (ICD-10-PCS; 2019-07-21)
PROC: B543ZZA Ultrasonography of Right Jugular Veins, Guidance (ICD-10-PCS; 2019-07-21)
PROC: 0JPT0WZ Removal of Totally Implantable Vascular Access Device from Trunk Subcutaneous Tissue and Fascia, Open Approach (ICD-10-PCS; 2019-07-21)
DX: T80.218A Other infection due to central venous catheter, initial encounter (principal); B37.7 Candidal sepsis; D57.00 Hb-SS disease with crisis, unspecified; D59.9 Acquired hemolytic anemia, unspecified; E86.0 Dehydration; E83.111 Hemochromatosis due to repeated red blood cell transfusions; R09.02 Hypoxemia; Z79.899 Other long term (current) drug therapy; Z90.81 Acquired absence of spleen
CPT/HCPCS: 36415; 36556; 36590; 71045; 77001; 80048; 80053; 82728; 83540; 83615; 85007; 85014; 85018; 85025; 85045; 85660; 86850; 86900; 86901; 86920; 87040; 87076; 87086; 87103; 87116; 87186; 94760; G0378; C1751; J0895; J1170; J1200; J1450; J1644; J1956; J2248; J2250; J3010; J3370; J7040; J7050; P9016

== ENCOUNTER 2019-11-15 17:00 | Inpatient (IN) | payer MEDICAID | END 2019-11-22 17:08 | disposition home or self-care (01) | DRG 812 | LOC: 4A 17:00 | PROVIDERS: ADMIT Internal Medicine Hematology & Oncology | PROC: 30233N1 Transfusion of Nonautologous Red Blood Cells into Peripheral Vein, Percutaneous Approach (ICD-10-PCS; principal; 2019-11-16) | PROC: 05HY33Z Insertion of Infusion Device into Upper Vein, Percutaneous Approach (ICD-10-PCS; 2019-11-16) | PROC: 02HV33Z Insertion of Infusion Device into Superior Vena Cava, Percutaneous Approach (ICD-10-PCS; 2019-11-19) | DX: D57.00 Hb-SS disease with crisis, unspecified (principal); E83.111 Hemochromatosis due to repeated red blood cell transfusions; D72.829 Elevated white blood cell count, unspecified; E86.0 Dehydration; D64.9 Anemia, unspecified; Z79.1 Long term (current) use of non-steroidal anti-inflammatories (NSAID); Z88.1 Allergy status to other antibiotic agents; Z88.6 Allergy status to analgesic agent ==

== ENCOUNTER 2019-12-20 18:31 | Inpatient (IN) | payer MEDICAID ==
[2019-12-20 19:43] LABS: Hemoglobin 6.1 gm/dl (11.8-15.2); Mean Corpuscular HGB Conc 35 % (32-34); Mean Corpuscular Volume 101 fl (84-94); Platelet Count 336 K/mm3 (140-440); Red Blood Count 1.73 M/mm3 (3.65-5.03)
[2019-12-20 19:53] LABS: Hematocrit 17.5 % (35.5-45.6); Red Cell Distribution Width 29.7 % (13.2-15.2)
[2019-12-20 20:03] LABS: Alanine Aminotransferase 112 units/L (7-56); Albumin 4.6 g/dL (3.9-5); BUN/Creatinine Ratio 45; Blood Urea Nitrogen 18 mg/dL (9-20); Calcium 9.2 mg/dL (8.4-10.2); Hemolysis Index 1
--- NOTE | 2019-12-20 20:09 | Emergency Department Report ---
ED General Adult HPI - General Chief complaint: Sickle Cell Crisis Stated complaint: LOW H&H/PAIN/SICKLE CELL PUI?: No Time Seen by Provider: 12/20/19 20:07 Source: patient Mode of arrival: Ambulatory Limitations: No Limitations - History of Present Illness Initial comments: Patient is a 34-year-old male that presents emergency room with complaints of low hemoglobin and sickle cell crisis pain. Patient states his pain is gene ralized. Patient denies chest pain or shortness of breath. Patient states his pain is 10 out of 10. Patient states he has been managing it with his home medications. Patient states his pain is been going on for 1 week. Patient states she saw his primary care yesterday and had his blood drawn his hemoglobin was 5.6. Patient states he was advised to come to the hospital but never did. Patient states he came today because he could not bear the pain. Patient states his primary care is Dr. Main. Patient denies recent travel. Patient denies recent international travel. Patient denies exposure to the novel coronavirus. Patient denies sick contacts. Patient denies fever and chills. Patient denies cough. Patient denies diarrhea. Patient denies coming in contact with anybody with symptoms of the novel coronavirus. -: Sudden - Related Data Home Medications Medication Instructions Recorded Confirmed Last Taken Morphine ER [Ms Contin ER] 60 mg PO Q12H 03/09/18 11/16/19 05/09/18 Oxycodone HCl [oxyCODONE] 10 mg PO Q8H 03/09/18 11/16/19 05/09/18 Sennosides Tab [Senokot] 17.2 mg PO PRN PRN 07/15/19 11/16/19 Unknown Previous Rx's Medication Instructions Recorded Last Taken Type Folic Acid [Folvite] 1 mg PO QDAY #30 tablet 05/15/19 Unknown Rx carvediloL [Coreg] 25 mg PO BID #60 tablet 05/15/19 Unknown Rx diphenhydrAMINE [Benadryl] 25 mg IV Q6H PRN vial 05/15/19 Unknown Rx Allergies Allergy/AdvReac Type Severity Reaction Status Date / Time ceftriaxone sodium Allergy Unknown Verified 03/09/18 07:35 [From Rocephin] meperidine HCl [From Demerol] Allergy Unknown Verified 03/09/18 07:35 ED Review of Systems ROS: Stated complaint: LOW H&H/PAIN/SICKLE CELL Other details as noted in HPI Constitutional: denies: chills, fever Eyes: denies: eye pain, eye discharge, vision change ENT: denies: ear pain, throat pain Respiratory: denies: cough, shortness of breath, wheezing Cardiovascular: denies: chest pain, palpitations Endocrine: no symptoms reported Gastrointestinal: denies: abdominal pain, nausea, diarrhea Genitourinary: denies: urgency, dysuria Musculoskeletal: back pain. denies: joint swelling, arthralgia Skin: denies: rash, lesions Neurological: denies: headache, weakness, paresthesias Psychiatric: denies: anxiety, depression Hematological/Lymphatic: denies: easy bleeding, easy bruising ED Past Medical Hx - Past Medical History Previous Medical History?: Yes Hx Hypertension: Yes Hx Heart Attack/AMI: No Hx Congestive Heart Failure: No Hx Diabetes: No Hx Deep Vein Thrombosis: No Hx Sickle Cell Disease: Yes Hx Asthma: No Hx COPD: No Hx HIV: No Additional medical history: low ef - Surgical History Past Surgical History?: Yes Hx Coronary Stent: No Hx Pacemaker: No Hx Internal Defibrillator: No Hx Cholecystectomy: Yes Additional Surgical History: spleen removed, hernia repair, PIC LINE IN THE LEFT CHEST. Port to right chest - Family History Family history: no significant - Social History Smoking Status: Never Smoker Substance Use Type: Marijuana - Medications Home Medications: Home Medications Medication Instructions Recorded Confirmed Last Taken Type Morphine ER [Ms Contin ER] 60 mg PO Q12H 03/09/18 11/16/19 05/09/18 History Oxycodone HCl [oxyCODONE] 10 mg PO Q8H 03/09/18 11/16/19 05/09/18 History Folic Acid [Folvite] 1 mg PO QDAY #30 tablet 05/15/19 11/16/19 Unknown Rx carvediloL [Coreg] 25 mg PO BID #60 tablet 05/15/19 11/16/19 Unknown Rx diphenhydrAMINE [Benadryl] 25 mg IV Q6H PRN vial 05/15/19 11/16/19 Unknown Rx Sennosides Tab [Senokot] 17.2 mg PO PRN PRN 07/15/19 11/16/19 Unknown History ED Physical Exam - General Limitations: No Limitations General appearance: alert, in no apparent distress - Head Head exam: Present: atraumatic, normocephalic - Eye Eye exam: Present: normal appearance - ENT ENT exam: Present: mucous membranes moist - Neck Neck exam: Present: normal inspection - Respiratory Respiratory exam: Present: normal lung sounds bilaterally. Absent: respiratory distress - Cardiovascular Cardiovascular Exam: Present: regular rate, normal rhythm. Absent: systolic murmur, diastolic murmur, rubs, gallop - GI/Abdominal GI/Abdominal exam: Present: soft, normal bowel sounds - Rectal Rectal exam: Present: deferred - Extremities Exam Extremities exam: Present: normal inspection - Back Exam Back exam: Present: normal inspection - Neurological Exam Neurological exam: Present: alert, oriented X3 - Psychiatric Psychiatric exam: Present: normal affect, normal mood - Skin Skin exam: Present: warm, dry, intact, normal color. Absent: rash ED Course Vital Signs 12/20/19 12/20/19 12/20/19 18:37 20:50 21:00 Temperature 98.6 F Pulse Rate 93 H 85 Respiratory 18 18 15 Rate Blood Pressure 120/63 134/69 [Right] O2 Sat by Pulse 91 95 Oximetry - Reevaluation(s) Reevaluation #1: Left EJ placed at the request of the patient. Patient states that they have a tough time getting peripheral IVs and requested an EJ. See procedure note. 12/20/19 20:22 Reevaluation #2: I discussed all results with patient. I discussed plan of care with patient. Patient agrees with plan of care and admission. Patient to be admitted to the patient's primary care's service. 12/20/19 20:38 - Consultations Consultation #1: Patient will be admitted to the hospital via the primary care. I discussed the case fully with the patient's primary care. Dr. Main to admit the patient. 12/20/19 20:38 - EJ/Peripheral Line Neck L Time Out Performed: Yes Indications: nurses unable to establis Skin Cleansed in Sterile Fashion: Yes Size: 18 Dressing Placed: Tegaderm, tape Patient Tolerated Procedure: well, no complications ED Medical Decision Making - Lab Data Result diagrams: 12/20/19 19:18 12/20/19 19:18 - Medical Decision Making Patient is a 34-year-old male that presents emergency room with generalized pa in, sickle cell crisis and anemia. Patient found to be hypoxic. Patient found to have a severely low H&H. Patient given fluids and pain meds. Patient had a left EJ placed for IV access. Patient typed and crossed for 2 units of RBCs. Patient admitted to the primary care service. - Differential Diagnosis Anemia, sickle cell crisis, hypoxia Critical Care Time: Yes Critical care time in (mins) excluding proc time.: 35 Critical care attestation.: If time is entered above; I have spent that time in minutes in the direct care of this critically ill patient, excluding procedure time. Critical Care Time: 35 minutes ED Disposition Clinical Impression: Hypoxia, Anemia, sickle cell with crisis, Sickle cell pain crisis, Severe anemia Sickle cell anemia Qualifiers: Sickle-cell associated disorders: with unspecified crisis Qualified Code(s): D57.00 - Hb-SS disease with crisis, unspecified Disposition: 09 OP ADMIT IP TO THIS HOSP Is pt being admited?: Yes Does the pt Need Aspirin: No Condition: Critical Time of Disposition: 20:22
[2019-12-20] MEDS ORDERED: SODIUM CHLORIDE 0.9% 500 ML 500 ML IV ONE (20:19)
[2019-12-20] MEDS ORDERED: diphenhydrAMINE 50 MG/ML VIAL IV ONE (20:21)
[2019-12-20] MEDS ORDERED: HYDROmorphone 2 MG/1 ML INJ IV ONE (20:21)
[2019-12-20] MEDS ORDERED: ONDANSETRON 4 MG/2 ML INJ IV ONE (20:21)
[2019-12-20 20:38] LABS: Total Cells Counted 100
[2019-12-20 20:39] LABS: Anisocytosis 3+; Poikilocytosis 3+; Sickle Cells 1+; Target Cells 1+
[2019-12-20 20:40] LABS: Schistocytes Few
[2019-12-20 20:41] LABS: Large Platelets Few; Ovalocytes Few; Platelet Estimate Consistent w Auto
[2019-12-20] MEDS ORDERED: D5W/0.2% NACL 1,000 ML IV SCH (21:00)
[2019-12-20] MEDS: MORPHINE 30 MG ER TAB PO SCH (21:22)
[2019-12-20] MEDS ORDERED: HYDROmorphone 2 MG/1 ML INJ ONE (22:25)
[2019-12-20] MEDS: HYDROmorphone 2 MG/1 ML INJ IV PRN (22:30)
--- NOTE | 2019-12-20 23:02 | History and Physical Report ---
History of Present Illness Date of examination: 12/20/19 Date of admission: 12/20/19 20:36 Chief complaint: Patient presented to the ER , due to generalized weakness. CBc in the office, revealed HGb 5.6, and symptomatic, hence ER visit. Patient is admitted, for management, including PRBC transfusion replacement. He will also get hydration, and pain control. He has severe transfusion related iron overload, and therefore, will try to chelate some his iron this admission, michelle since he is goi ng to get some blood, that is critically needed.once stable, will d/c home. History of present illness: See abpve notes. Past History Past Medical History: anemia Social history: no significant social history, , lives with family Family history: no significant family history Medications and Allergies Allergies Allergy/AdvReac Type Severity Reaction Status Date / Time ceftriaxone sodium Allergy Unknown Verified 03/09/18 07:35 [From Rocephin] meperidine HCl [From Demerol] Allergy Unknown Verified 03/09/18 07:35 Home Medications Medication Instructions Recorded Confirmed Last Taken Type Morphine ER [Ms Contin ER] 60 mg PO Q12H 03/09/18 11/16/19 05/09/18 History Oxycodone HCl [oxyCODONE] 10 mg PO Q8H 03/09/18 11/16/19 05/09/18 History Folic Acid [Folvite] 1 mg PO QDAY #30 tablet 05/15/19 11/16/19 Unknown Rx carvediloL [Coreg] 25 mg PO BID #60 tablet 05/15/19 11/16/19 Unknown Rx diphenhydrAMINE [Benadryl] 25 mg IV Q6H PRN vial 05/15/19 11/16/19 Unknown Rx Sennosides Tab [Senokot] 17.2 mg PO PRN PRN 07/15/19 11/16/19 Unknown History Active Meds: Active Medications Diphenhydramine HCl (Benadryl) 12.5 mg IV Q3H PRN PRN Reason: Pain Hydromorphone HCl (Dilaudid) 2 mg IV Q3H PRN PRN Reason: Pain , Severe (7-10) Last Admin: 12/20/19 22:30 Dose: 2 mg Documented by: Dextrose/Sodium Chloride (D5ns 0.2%) 1,000 mls @ 250 mls/hr IV DIRECT WAYNE Morphine Sulfate (Ms Contin Er) 30 mg PO Q8H WAYNE Last Admin: 12/20/19 21:22 Dose: 30 mg Documented by: Review of Systems Constitutional: fatigue, weakness, chronic pain Cardiovascular: shortness of breath Respiratory: shortness of breath Musculoskeletal: low back pain Exam - Constitutional Vitals: Temp Pulse Resp BP Pulse Ox 98.6 F 85 15 134/69 95 12/20/19 18:37 12/20/19 21:00 12/20/19 21:00 12/20/19 21:00 12/20/19 21:00 General appearance: Present: mild distress, well-nourished - EENT Eyes: Present: PERRL ENT: hearing intact, clear oral mucosa - Neck Neck: Present: supple, normal ROM - Respiratory Respiratory effort: normal Respiratory: bilateral: diminished - Cardiovascular Heart Sounds: Present: S1 & S2. Absent: rub, click - Extremities Extremities: pulses symmetrical, No edema Peripheral Pulses: within normal limits - Abdominal General gastrointestinal: Present: soft, non-tender, non-distended, normal bowel sounds Male genitourinary: Present: deferred - Rectal Rectal Exam: deferred - Integumentary Integumentary: Present: clear, warm, dry - Musculoskeletal Musculoskeletal: gait normal, strength equal bilaterally - Psychiatric Psychiatric: appropriate mood/affect, intact judgment & insight - Neurologic Neurologic: CNII-XII intact, moves all extremities HEART Score - HEART Score Age: < 45 Risk factors: 1-2 risk factors Results - Labs CBC & Chem 7: 12/20/19 19:18 12/20/19 19:18 Labs: Abnormal lab results 12/20/19 12/20/19 12/20/19 Range/Units 19:18 19:18 19:30 WBC 16.9 H (4.5-11.0) K/mm3 RBC 1.73 L (3.65-5.03) M/mm3 Hgb 6.1 L (11.8-15.2) gm/dl Hct 17.5 L* (35.5-45.6) % MCV 101 H (84-94) fl MCH 35 H (28-32) pg MCHC 35 H (32-34) % RDW 29.7 H (13.2-15.2) % Monocytes % (Manual) 9.0 H (0.0-7.3) % Eosinophils % (Manual) 7.0 H (0.0-4.3) % Basophils % (Manual) 3.0 H (0.0-1.8) % Nucleated RBC % 8.0 H (0.0-0.9) % Seg Neutrophils # Man 10.1 H (1.8-7.7) K/mm3 Monocytes # (Manual) 1.5 H (0.0-0.8) K/mm3 Eosinophils # (Manual) 1.2 H (0.0-0.4) K/mm3 Basophils # (Manual) 0.5 H (0.0-0.1) K/mm3 Percent Retic 21.35 H (0.78-2.58) % Carbon Dioxide 21 L (22-30) mmol/L Creatinine 0.4 L (0.8-1.5) mg/dL Glucose 115 H (75-100) mg/dL Total Bilirubin 6.80 H (0.1-1.2) mg/dL AST 180 H (5-40) units/L ALT 112 H (7-56) units/L Alkaline Phosphatase 261 H (35-129) units/L Crossmatch See Detail Assessment and Plan - Patient Problems (1) Severe anemia Current Visit: Yes Status: Acute (2) Sickle cell anemia with crisis Current Visit: Yes Status: Acute (3) Sickle cell pain crisis Current Visit: Yes Status: Acute (4) Hypoxia Current Visit: Yes Status: Chronic (5) Dehydration Current Visit: Yes Status: Acute
[2019-12-20] MEDS ORDERED: SENNOSIDES 8.6 MG TAB PO PRN (23:05)
[2019-12-21] MEDS: D5W/0.2% NACL 1,000 ML IV SCH ×5 (00:39→23:42)
[2019-12-21] MEDS: diphenhydrAMINE 50 MG/ML VIAL IV PRN ×6 (00:51→21:34)
[2019-12-21] MEDS: HYDROmorphone 2 MG/1 ML INJ IV PRN ×6 (02:15→21:35)
[2019-12-21] MEDS: MORPHINE 30 MG ER TAB PO SCH ×3 (04:39→21:22)
[2019-12-21] MEDS: FOLIC ACID 1 MG TAB PO SCH (10:59)
[2019-12-21] MEDS ORDERED: SENNOSIDES 8.6 MG TAB PO PRN (12:00)
[2019-12-21] MEDS: DEFEROXAMINE MESYLATE IV SCH (12:48)
[2019-12-21] MEDS: SODIUM CHLORIDE 0.9% IV SCH (12:48)
--- NOTE | 2019-12-21 21:25 | Progress Note ---
Assessment and Plan - Patient Problems (1) Severe anemia Current Visit: Yes Status: Acute Plan to address problem: replacement transfusion (2) Sickle cell anemia with crisis Current Visit: Yes Status: Acute Plan to address problem: pain control. (3) Sickle cell pain crisis Current Visit: Yes Status: Acute Plan to address problem: control crisis. (4) Hypoxia Current Visit: Yes Status: Chronic Plan to address problem: oxygen. (5) Dehydration Current Visit: Yes Status: Acute Plan to address problem: hydration. (6) Iron overload due to repeated red blood cell transfusions Current Visit: Yes Status: Acute Plan to address problem: Iron chelation. Subjective Date of service: 12/21/19 Interval history: patient seen, resting in bed, records reviewed, cse d/w patient.He is tolerating Desf.hgb still at 6.1.still awaiting blood., for transfusion. Objective - Constitutional Vitals: Vital Signs - 12hr 12/21/19 12/21/19 12/21/19 09:27 12:32 12:46 Temperature 98.5 F Pulse Rate 87 Respiratory 20 14 20 Rate Blood Pressure 113/64 O2 Sat by Pulse 93 Oximetry 12/21/19 12/21/19 12/21/19 12:47 16:13 18:36 Temperature 98.6 F Pulse Rate 80 Respiratory 20 16 20 Rate Blood Pressure 109/62 O2 Sat by Pulse 90 Oximetry General appearance: Present: mild distress, well-nourished - EENT Eyes: PERRL, EOM intact ENT: hearing intact, clear oral mucosa Ears: bilateral: normal - Neck Neck: supple, normal ROM - Respiratory Respiratory effort: normal Respiratory: bilateral: CTA - Breasts Breasts: deferred - Cardiovascular Rhythm: regular Heart Sounds: Present: S1 & S2. Absent: gallop, rub Extremities: pulses intact, No edema, normal color, Full ROM - Gastrointestinal General gastrointestinal: Present: soft, non-tender, non-distended, normal bowel sounds Rectal Exam: deferred - Genitourinary Male genitourinary: deferred - Integumentary Integumentary: clear, warm, dry - Musculoskeletal Musculoskeletal: 1, strength equal bilaterally - Neurologic Neurologic: moves all extremities - Psychiatric Psychiatric: memory intact, appropriate mood/affect, intact judgment & insight - Labs CBC & Chem 7: 12/20/19 19:18 05/20/20 19:18 HEART Score - HEART Score Age: < 45 Risk factors: 1-2 risk factors
[2019-12-22] MEDS: diphenhydrAMINE 50 MG/ML VIAL IV PRN ×8 (00:46→21:24)
[2019-12-22] MEDS: HYDROmorphone 2 MG/1 ML INJ IV PRN ×8 (00:46→21:24)
[2019-12-22] MEDS: D5W/0.2% NACL 1,000 ML IV SCH ×2 (03:52→09:38)
[2019-12-22] MEDS: MORPHINE 30 MG ER TAB PO SCH ×3 (04:56→22:19)
[2019-12-22] MEDS ORDERED: SODIUM CHLORIDE 0.9% 500 ML 500 ML IV SCH (08:00)
[2019-12-22] MEDS: SODIUM CHLORIDE 0.9% IV SCH (09:37)
[2019-12-22] MEDS: DEFEROXAMINE MESYLATE IV SCH (09:37)
[2019-12-22] MEDS: FOLIC ACID 1 MG TAB PO SCH (09:37)
[2019-12-22] MEDS ORDERED: ACETAMINOPHEN 325 MG TAB PO ONE (15:50)
[2019-12-22] MEDS ORDERED: diphenhydrAMINE 50 MG/ML VIAL IV ONE (15:51)
--- NOTE | 2019-12-22 22:48 | Progress Note ---
Assessment and Plan - Patient Problems (1) Severe anemia Current Visit: Yes Status: Acute Plan to address problem: replacement transfusion (2) Sickle cell anemia with crisis Current Visit: Yes Status: Acute Plan to address problem: pain control. (3) Sickle cell pain crisis Current Visit: Yes Status: Acute Plan to address problem: control crisis. (4) Hypoxia Current Visit: Yes Status: Chronic Plan to address problem: oxygen. (5) Dehydration Current Visit: Yes Status: Acute Plan to address problem: hydration. (6) Iron overload due to repeated red blood cell transfusions Current Visit: Yes Status: Acute Plan to address problem: Iron chelation. Subjective Date of service: 12/22/19 Interval history: patient seen, resting in bed, records reviewed, cse d/w patient.He is tolerating Desf.hgb still at 6.1.still awaiting blood., for transfusion. Patient resting in bed, tolerated the first unit of PRBC, awaiting the second bag.Day #2 of 4 desf , infusing.check am H/H in am. Objective - Constitutional Vitals: Vital Signs - 12hr 12/22/19 12/22/19 12/22/19 11:35 16:39 16:54 Temperature 98.7 F 99 F 98 F Pulse Rate 79 80 76 Respiratory 18 20 20 Rate Blood Pressure 118/47 106/71 103/68 O2 Sat by Pulse 92 99 96 Oximetry 12/22/19 12/22/19 12/22/19 17:24 17:54 18:24 Temperature 98.5 F 98 F 98.8 F Pulse Rate 78 79 78 Respiratory 20 20 20 Rate Blood Pressure 107/72 113/71 108/77 O2 Sat by Pulse 99 99 99 Oximetry 12/22/19 12/22/19 12/22/19 18:54 19:46 21:11 Temperature 98.4 F 98.1 F Pulse Rate 80 Respiratory 20 16 Rate Blood Pressure 118/77 113/69 O2 Sat by Pulse 99 94 Oximetry General appearance: Present: mild distress, well-nourished - EENT Eyes: PERRL, EOM intact ENT: hearing intact, clear oral mucosa Ears: bilateral: normal - Neck Neck: supple, normal ROM - Respiratory Respiratory effort: normal Respiratory: bilateral: CTA - Breasts Breasts: deferred - Cardiovascular Rhythm: regular Heart Sounds: Present: S1 & S2. Absent: gallop, rub Extremities: pulses intact, No edema, normal color, Full ROM - Gastrointestinal General gastrointestinal: Present: soft, non-tender, non-distended, normal bowel sounds Rectal Exam: deferred - Genitourinary Male genitourinary: deferred - Integumentary Integumentary: clear, warm, dry - Musculoskeletal Musculoskeletal: 1, strength equal bilaterally - Neurologic Neurologic: moves all extremities - Psychiatric Psychiatric: memory intact, appropriate mood/affect, intact judgment & insight - Labs CBC & Chem 7: 12/20/19 19:18 12/20/19 19:18 Labs: Abnormal lab results 12/20/19 Range/Units 19:30 Crossmatch See Detail HEART Score - HEART Score EKG: Normal Age: < 45 Risk factors: 1-2 risk factors
[2019-12-23] MEDS: HYDROmorphone 2 MG/1 ML INJ IV PRN ×8 (00:14→22:17)
[2019-12-23] MEDS: diphenhydrAMINE 50 MG/ML VIAL IV PRN ×8 (00:15→22:17)
[2019-12-23] MEDS: D5W/0.2% NACL 1,000 ML IV SCH ×4 (03:43→19:21)
[2019-12-23] MEDS: MORPHINE 30 MG ER TAB PO SCH ×3 (05:36→20:36)
[2019-12-23 06:23] LABS: Hemoglobin 6.1 gm/dl (11.8-15.2)
[2019-12-23 06:43] LABS: Hematocrit 17.4 % (35.5-45.6)
[2019-12-23] MEDS: FOLIC ACID 1 MG TAB PO SCH (10:01)
[2019-12-23] MEDS: DEFEROXAMINE MESYLATE IV SCH (15:58)
[2019-12-23] MEDS: SODIUM CHLORIDE 0.9% IV SCH (15:58)
--- NOTE | 2019-12-23 22:53 | Progress Note ---
Assessment and Plan - Patient Problems (1) Severe anemia Current Visit: Yes Status: Acute Plan to address problem: replacement transfusion (2) Sickle cell anemia with crisis Current Visit: Yes Status: Acute Plan to address problem: pain control. (3) Sickle cell pain crisis Current Visit: Yes Status: Acute Plan to address problem: control crisis. (4) Hypoxia Current Visit: Yes Status: Chronic Plan to address problem: oxygen. (5) Dehydration Current Visit: Yes Status: Acute Plan to address problem: hydration. (6) Iron overload due to repeated red blood cell transfusions Current Visit: Yes Status: Acute Plan to address problem: Iron chelation. Subjective Date of service: 12/23/19 Interval history: patient seen, resting in bed, records reviewed, cse d/w patient.He is tolerating Desf.hgb still at 6.1.still awaiting blood., for transfusion. Patient resting in bed, tolerated the first unit of PRBC, awaiting the second bag.Day #2 of 4 desf , infusing.check am H/H in am. Patient seen/examined, resting in bed, finished PRBCs transfusion, and tolerated well. Will do am H/h,, and once the 34 desf finishes, will d/c home. Objective - Constitutional Vitals: Vital Signs - 12hr 12/23/19 12/23/19 12/23/19 11:15 13:00 13:04 Temperature 98 F Pulse Rate 83 70 76 Respiratory 18 18 Rate Blood Pressure 115/70 118/62 O2 Sat by Pulse 90 96 Oximetry 12/23/19 12/23/19 12/23/19 13:19 13:32 14:00 Temperature 98.2 F 98.2 F 98 F Pulse Rate 74 77 76 Respiratory 18 18 18 Rate Blood Pressure 118/64 118/64 118/71 O2 Sat by Pulse 79 L 93 97 Oximetry 12/23/19 12/23/19 12/23/19 14:19 14:30 14:49 Temperature 98 F 98.2 F 98 F Pulse Rate 76 74 76 Respiratory 18 18 18 Rate Blood Pressure 110/74 124/79 118/66 O2 Sat by Pulse 96 97 96 Oximetry 12/23/19 12/23/19 12/23/19 15:00 15:34 15:41 Temperature 98.2 F 98 F Pulse Rate 76 74 Respiratory 18 18 18 Rate Blood Pressure 124/80 121/74 124/80 O2 Sat by Pulse 97 97 Oximetry 12/23/19 12/23/19 12/23/19 15:43 20:29 20:36 Temperature 98.2 F Pulse Rate 76 Respiratory 18 18 Rate Blood Pressure 121/74 O2 Sat by Pulse 97 98 Oximetry General appearance: Present: mild distress, well-nourished - EENT Eyes: PERRL, EOM intact ENT: hearing intact, clear oral mucosa Ears: bilateral: normal - Neck Neck: supple, normal ROM - Respiratory Respiratory effort: normal Respiratory: bilateral: CTA - Breasts Breasts: deferred - Cardiovascular Rhythm: regular Heart Sounds: Present: S1 & S2. Absent: gallop, rub Extremities: pulses intact, No edema, normal color, Full ROM - Gastrointestinal General gastrointestinal: Present: soft, non-tender, non-distended, normal bowel sounds Rectal Exam: deferred - Genitourinary Male genitourinary: deferred - Integumentary Integumentary: clear, warm, dry - Musculoskeletal Musculoskeletal: 1, strength equal bilaterally - Neurologic Neurologic: moves all extremities - Psychiatric Psychiatric: memory intact, appropriate mood/affect, intact judgment & insight - Labs CBC & Chem 7: 12/23/19 05:57 12/20/19 19:18 Labs: Abnormal lab results 12/20/19 12/23/19 Range/Units 19:30 05:57 Hgb 6.1 L (11.8-15.2) gm/dl Hct 17.4 L* (35.5-45.6) % Crossmatch See Detail HEART Score - HEART Score EKG: Normal Age: < 45 Risk factors: 1-2 risk factors
[2019-12-24] MEDS: HYDROmorphone 2 MG/1 ML INJ IV PRN ×8 (01:18→22:41)
[2019-12-24] MEDS: diphenhydrAMINE 50 MG/ML VIAL IV PRN ×8 (01:19→22:40)
[2019-12-24] MEDS: MORPHINE 30 MG ER TAB PO SCH ×3 (05:06→21:51)
[2019-12-24 05:57] LABS: Hematocrit 20.2 % (35.5-45.6); Hemoglobin 7.1 gm/dl (11.8-15.2)
[2019-12-24] MEDS: FOLIC ACID 1 MG TAB PO SCH (10:27)
[2019-12-24] MEDS: SODIUM CHLORIDE 0.9% IV SCH (10:28)
[2019-12-24] MEDS: DEFEROXAMINE MESYLATE IV SCH (10:28)
[2019-12-24] MEDS: D5W/0.2% NACL 1,000 ML IV SCH ×3 (12:23→21:52)
--- NOTE | 2019-12-24 23:42 | Progress Note ---
Assessment and Plan - Patient Problems (1) Severe anemia Current Visit: Yes Status: Acute Plan to address problem: replacement transfusion ,completed 2units PRBC.. (2) Sickle cell anemia with crisis Current Visit: Yes Status: Acute Plan to address problem: pain control. (3) Sickle cell pain crisis Current Visit: Yes Status: Acute Plan to address problem: control crisis. (4) Hypoxia Current Visit: Yes Status: Chronic Plan to address problem: oxygen. (5) Dehydration Current Visit: Yes Status: Acute Plan to address problem: hydration. (6) Iron overload due to repeated red blood cell transfusions Current Visit: Yes Status: Acute Plan to address problem: Iron chelation. completed 4 treatments. Subjective Date of service: 12/24/19 Interval history: patient seen, resting in bed, records reviewed, cse d/w patient.He is tolerating Desf.hgb still at 6.1.still awaiting blood., for transfusion. Patient resting in bed, tolerated the first unit of PRBC, awaiting the second bag.Day #2 of 4 desf , infusing.check am H/H in am. Patient seen/examined, resting in bed, finished PRBCs transfusion, and tolerated well. Will do am H/h,, and once the 4th desf finishes, will d/c home. Patient seen/examined, resting in bed,labs reviewed, case d/w him.post 2units PRBcs transfusion h/h7.1, gaining only 1gm of hgb total. Will repeat h/h in the Am, expect hgb to probably get higher, and if not, may get another 1unit, depending on how he feels overall.I have spoken to him about need for port placement. He will think on that.His transfusion issues is complicated by the fact, that he has chronic transfusion related iron overload. I have discussed this with him, and he is insisting on increasing his hgb ,for him to get better. He already has SIRS with organ damage ,present on admission.Retic count remains high. Objective - Constitutional Vitals: Vital Signs - 12hr 12/24/19 12/24/19 12/24/19 12:10 13:25 13:36 Temperature 97.5 F L Pulse Rate Pulse Rate [ Left Radial] Pulse Rate [ Right Radial] Respiratory 18 24 20 Rate Blood Pressure 123/66 O2 Sat by Pulse Oximetry 12/24/19 12/24/19 12/24/19 16:25 17:35 20:27 Temperature 98.2 F 99.0 F Pulse Rate 81 Pulse Rate [ Left Radial] Pulse Rate [ Right Radial] Respiratory 20 18 18 Rate Blood Pressure 121/70 115/72 O2 Sat by Pulse 94 Oximetry 12/24/19 21:00 Temperature Pulse Rate Pulse Rate [ 81 Left Radial] Pulse Rate [ 81 Right Radial] Respiratory 16 Rate Blood Pressure O2 Sat by Pulse 95 Oximetry General appearance: Present: mild distress, well-nourished - EENT Eyes: PERRL, EOM intact ENT: hearing intact, clear oral mucosa Ears: bilateral: normal - Neck Neck: supple, normal ROM - Respiratory Respiratory effort: normal Respiratory: bilateral: CTA - Breasts Breasts: deferred - Cardiovascular Rhythm: regular Heart Sounds: Present: S1 & S2. Absent: gallop, rub Extremities: pulses intact, No edema, normal color, Full ROM - Gastrointestinal General gastrointestinal: Present: soft, non-tender, non-distended, normal bowel sounds Rectal Exam: deferred - Genitourinary Male genitourinary: deferred - Integumentary Integumentary: clear, warm, dry - Musculoskeletal Musculoskeletal: 1, strength equal bilaterally - Neurologic Neurologic: moves all extremities - Psychiatric Psychiatric: memory intact, appropriate mood/affect, intact judgment & insight - Labs CBC & Chem 7: 12/24/19 05:13 12/20/19 19:18 Labs: Abnormal lab results 12/24/19 Range/Units 05:13 Hgb 7.1 L (11.8-15.2) gm/dl Hct 20.2 L (35.5-45.6) % HEART Score - HEART Score EKG: Normal Age: < 45 Risk factors: 1-2 risk factors
[2019-12-25] MEDS: diphenhydrAMINE 50 MG/ML VIAL IV PRN ×7 (01:50→20:50)
[2019-12-25] MEDS: HYDROmorphone 2 MG/1 ML INJ IV PRN ×7 (01:51→20:49)
[2019-12-25] MEDS: D5W/0.2% NACL 1,000 ML IV SCH ×2 (02:45→23:00)
[2019-12-25 05:09] LABS: Hemoglobin 6.9 gm/dl (11.8-15.2)
[2019-12-25] MEDS: MORPHINE 30 MG ER TAB PO SCH ×3 (05:50→21:35)
[2019-12-25] MEDS ORDERED: SODIUM CHLORIDE 0.9% 500 ML 500 ML IV ONE (05:52)
[2019-12-25 08:13] LABS: Albumin 4.1 g/dL (3.9-5); Bilirubin,Direct 1.5 mg/dL (0-0.2)
[2019-12-25] MEDS: FOLIC ACID 1 MG TAB PO SCH (10:55)
--- NOTE | 2019-12-25 19:14 | Progress Note ---
Assessment and Plan - Patient Problems (1) Severe anemia Current Visit: Yes Status: Acute Plan to address problem: replacement transfusion ,completed 2units PRBC.. (2) Sickle cell anemia with crisis Current Visit: Yes Status: Acute Plan to address problem: pain control. (3) Sickle cell pain crisis Current Visit: Yes Status: Acute Plan to address problem: control crisis. (4) Hypoxia Current Visit: Yes Status: Chronic Plan to address problem: oxygen. (5) Dehydration Current Visit: Yes Status: Acute Plan to address problem: hydration. (6) Iron overload due to repeated red blood cell transfusions Current Visit: Yes Status: Acute Plan to address problem: Iron chelation. completed 4 treatments. (7) SIRS (systemic inflammatory response syndrome) Current Visit: Yes Status: Acute Plan to address problem: With organ dysfunction, present on admission. Subjective Date of service: 12/25/19 Interval history: patient seen, resting in bed, records reviewed, cse d/w patient.He is tolerating Desf.hgb still at 6.1.still awaiting blood., for transfusion. Patient resting in bed, tolerated the first unit of PRBC, awaiting the second bag.Day #2 of 4 desf , infusing.check am H/H in am. Patient seen/examined, resting in bed, finished PRBCs transfusion, and tolerated well. Will do am H/h,, and once the 4th desf finishes, will d/c home. Patient seen/examined, resting in bed,labs reviewed, case d/w him.post 2units PRBcs transfusion h/h7.1, gaining only 1gm of hgb total. Will repeat h/h in the Am, expect hgb to probably get higher, and if not, may get another 1unit, depending on how he feels overall.I have spoken to him about need for port placement. He will think on that.His transfusion issues is complicated by the fact, that he has chronic transfusion related iron overload. I have discussed this with him, and he is insisting on increasing his hgb ,for him to get better. He already has SIRS with organ damage ,present on admission.Retic count remains high. patient seen/examined, resting in bed, labs reviewed, mri ordered of the liver, with possible bx.still awaiting blood transfusion Objective - Constitutional Vitals: Vital Signs - 12hr 0512/25/19 12/25/19 10:13 11:00 16:27 Temperature 98.4 F 98.1 F Pulse Rate 71 72 76 Respiratory 18 18 Rate Blood Pressure 112/64 119/72 [Right] O2 Sat by Pulse 96 97 Oximetry General appearance: Present: mild distress, well-nourished - EENT Eyes: PERRL, EOM intact ENT: hearing intact, clear oral mucosa Ears: bilateral: normal - Neck Neck: supple, normal ROM - Respiratory Respiratory effort: normal Respiratory: bilateral: CTA - Breasts Breasts: deferred - Cardiovascular Rhythm: regular Heart Sounds: Present: S1 & S2. Absent: gallop, rub Extremities: pulses intact, No edema, normal color, Full ROM - Gastrointestinal General gastrointestinal: Present: soft, non-tender, non-distended, normal bowel sounds - Genitourinary Male genitourinary: deferred - Integumentary Integumentary: clear, warm, dry - Musculoskeletal Musculoskeletal: 1, strength equal bilaterally - Neurologic Neurologic: moves all extremities - Psychiatric Psychiatric: memory intact, appropriate mood/affect, intact judgment & insight - Labs CBC & Chem 7: 12/25/19 04:28 12/20/19 19:18 Labs: Abnormal lab results 12/25/19 12/25/19 12/25/19 Range/Units 04:28 04:28 06:59 Hgb 6.9 L (11.8-15.2) gm/dl Hct 19.0 L* (35.5-45.6) % Percent Retic 16.85 H (0.78-2.58) % Total Bilirubin 5.50 H (0.1-1.2) mg/dL Direct Bilirubin 1.5 H (0-0.2) mg/dL AST 156 H (5-40) units/L ALT 57 H (7-56) units/L Alkaline Phosphatase 234 H (35-129) units/L Crossmatch See Detail HEART Score - HEART Score EKG: Normal Age: < 45 Risk factors: 1-2 risk factors
[2019-12-26] MEDS: HYDROmorphone 2 MG/1 ML INJ IV PRN ×7 (00:07→22:52)
[2019-12-26] MEDS: diphenhydrAMINE 50 MG/ML VIAL IV PRN ×7 (00:08→22:53)
[2019-12-26] MEDS: D5W/0.2% NACL 1,000 ML IV SCH ×4 (03:37→21:35)
[2019-12-26 04:26] LABS: Hemoglobin 8.5 gm/dl (11.8-15.2)
[2019-12-26] MEDS: MORPHINE 30 MG ER TAB PO SCH ×3 (05:51→21:19)
[2019-12-26] MEDS: FOLIC ACID 1 MG TAB PO SCH (09:39)
--- NOTE | 2019-12-26 10:45 | Magnetic Resonance Report ---
MR abdomen wo con INDICATION / CLINICAL INFORMATION: MAIN: liver enlargement/iron overload. Abd. pain, sickle cell crisis.. TECHNIQUE: Multiplanar, multisequence MR images were obtained. COMPARISON: None available. FINDINGS: The liver is enlarged and diffusely low signal. No focal hepatic lesions are seen. No biliary dilatation is seen. 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 No intrinsic renal or adrenal lesio ns are seen. No adenopathy. There is trace perihepatic fluid. There is cardiomegaly. . IMPRESSION: 1. Hepatomegaly. There is diffuse low signal throughout the enlarged liver on all sequences which can be seen in the setting of hemachromatosis. There is trace perihepatic ascites. 2. Prior cholecystectomy and splenectomy. Cardiomegaly. These findings could be seen in the setting o f sickle cell disease. Signer Name: Beto Rene MD Signed: 12/26/2019 10:41 AM Workstation Name: [id number]
--- NOTE | 2019-12-26 22:34 | Discharge Summary ---
Providers - Providers Date of Admission: 12/21/19 08:53 Date of discharge: 12/27/19 Attending physician: DANIEL DE JESUS Primary care physician: DANIEL DE JESUS Hospitalization Reason for admission: SCD/anemia, dehydration. Condition: Stable Hospital course: Patient seen/examined, resting in bed, recopreds/scans, reviewed, and discussed with patient. He had presented to the office with CC of diffuse jiont pain, unable ,to control, hence this admission, to control sxs, management. He had total of 4units of PRBCs. The aim was not to exceed 1-2 units total, but he was quite symptomatic, even after the first 2 units.Mri done, consistent with hemochromatosis. Patient with hx if chronic iron overload.He will get port outpatient, and continue on iron extraction process. Disposition: DC- TO HOME OR SELFCARE - Discharge Diagnoses (1) Severe anemia Status: Chronic (2) Sickle cell anemia with crisis Status: Chronic (3) Sickle cell pain crisis Status: Resolved (4) Hypoxia Status: Chronic (5) Dehydration Status: Resolved (6) Iron overload due to repeated red blood cell transfusions Status: Chronic (7) SIRS (systemic inflammatory response syndrome) Status: Inactive Core Measure Documentation - Palliative Care Palliative Care/ Comfort Measures: Not Applicable - Core Measures Any of the following diagnoses?: none Exam - Constitutional Vitals: Temp Pulse Resp BP Pulse Ox 98.7 F 76 18 127/78 99 12/26/19 21:46 12/26/19 20:42 12/26/19 21:19 12/26/19 19:28 12/26/19 19:16 General appearance: Present: no acute distress, well-nourished - EENT Eyes: Present: PERRL ENT: hearing intact, clear oral mucosa - Neck Neck: Present: supple, normal ROM - Respiratory Respiratory effort: normal Respiratory: bilateral: CTA - Cardiovascular Heart Sounds: Present: S1 & S2. Absent: rub, click - Extremities Extremities: pulses symmetrical, No edema Peripheral Pulses: within normal limits - Abdominal General gastrointestinal: Present: soft, non-tender, non-distended, normal bowel sounds Male genitourinary: Present: deferred - Rectal Rectal Exam: deferred - Integumentary Integumentary: Present: clear, warm, dry - Musculoskeletal Musculoskeletal: gait normal, strength equal bilaterally - Psychiatric Psychiatric: appropriate mood/affect, intact judgment & insight - Neurologic Neurologic: CNII-XII intact, moves all extremities Plan Activity: no restrictions Diet: regular Follow up with: DANIEL DE JESUS DO [Primary Care Provider] - 3-5 Days
[2019-12-27] MEDS: diphenhydrAMINE 50 MG/ML VIAL IV PRN ×3 (02:14→09:01)
[2019-12-27] MEDS: HYDROmorphone 2 MG/1 ML INJ IV PRN ×3 (02:14→09:01)
[2019-12-27] MEDS: D5W/0.2% NACL 1,000 ML IV SCH (04:00)
[2019-12-27] MEDS: MORPHINE 30 MG ER TAB PO SCH (05:00)
[2019-12-27] MEDS: FOLIC ACID 1 MG TAB PO SCH (09:01)
[2019-12-27 09:08] VITALS: BP 125/82
== END 2019-12-27 12:08 | disposition home or self-care (01) | DRG 811 ==
LOC: ED 18:31 → 4A 20:36 → IMCU 22:13 → OBSVTOIN 12-21 08:53 → 4A 12-23 01:01
PROVIDERS: ADMIT Internal Medicine Hematology & Oncology; ATTEND Internal Medicine Hematology & Oncology
PROC: 30233N1 Transfusion of Nonautologous Red Blood Cells into Peripheral Vein, Percutaneous Approach (ICD-10-PCS; principal; 2019-12-22)
DX: D57.00 Hb-SS disease with crisis, unspecified (principal); R65.11 Systemic inflammatory response syndrome (SIRS) of non-infectious origin with acute organ dysfunction; I10 Essential (primary) hypertension; E86.0 Dehydration; E83.111 Hemochromatosis due to repeated red blood cell transfusions; D64.9 Anemia, unspecified; Z88.1 Allergy status to other antibiotic agents; Z88.6 Allergy status to analgesic agent; Z90.49 Acquired absence of other specified parts of digestive tract
CPT/HCPCS: 36415; 36430; 74181; 80053; 80076; 82270; 85007; 85014; 85018; 85025; 85045; 85660; 86850; 86900; 86901; 86920; 87641; G0378; J0895; J1170; J1200; J2405; J7040; J7050; P9016